=== PATIENT | male | born 1945 | race Caucasian/White ===

== ENCOUNTER 2022-11-03 07:42 | Outpatient (OUT) | payer MEDICARE, OTHER, SELFPAY ==
[2022-11-03 07:56] LABS: Basophils Absolute Auto 0.1 10^3/uL (0.0-0.1); Basophils Percent Auto 0.5 % (0.2-2.0); Eosinophils Absolute Auto 0.3 10^3/uL (0.0-0.7); Hematocrit 40.7 % (42.0-54.0); Hemoglobin 13.6 g/dL (14.0-18.0); Immature Granulocytes Abs Auto 0.09 10^3/uL (0.00-0.03); Immature Granulocytes Pct Auto 0.9 % (0.0-0.5); Lymphocytes Absolute Auto 2.6 10^3/uL (1.2-3.8); Lymphocytes Percent Auto 27.4 % (20.5-60.0); Mean Corpuscular HGB Conc 33.4 g/dL (29.9-35.2); Mean Corpuscular Hemoglobin 31.1 pg (25.9-34.0); Mean Corpuscular Volume 93.1 fL (80.0-94.0); Mean Platelet Volume 10.2 fL (9.5-13.5); Monocytes Absolute Auto 0.7 10^3/uL (0.3-0.8); Monocytes Percent Auto 7.7 % (1.7-12.0); Neutrophils Absolute Auto 5.8 10^3/uL (1.4-6.5); Neutrophils Percent Auto 60.5 % (43.0-75.0); Platelet Count 174 10^3/uL (150-450); Red Blood Count 4.37 10^6/uL (4.70-6.10); Red Cell Distribution Width 13.5 % (11.0-15.0); White Blood Count 9.6 10^3/uL (4.0-11.0)
[2022-11-03 08:53] LABS: Alanine Aminotransferase 36 U/L (16-63); Anion Gap 15.7; Carbon Dioxide 22.6 mmol/L (21.0-32.0); Chloride 105 mmol/L (98-107); Chol HDL Ratio 2.5; Cholesterol 111 mg/dL (<=200); Estimated GFR (African America 51 (>=60); Estimated GFR (Non-African Ame 42 (>=60); Glucose 136 mg/dL (74-106); HDL Cholesterol 44 mg/dL (40-60); LDL Cholesterol Calculated 42.2 mg/dL; Potassium 4.3 mmol/L (3.5-5.1); Sodium 139 mmol/L (136-145); Triglycerides 124 mg/dL (<=150); VLDL CHOLESTEROL 24.8 mg/dL
== END 2022-11-03 07:43 | disposition home or self-care (01) ==
LOC: LAB 07:45
PROVIDERS: PCP Internal Medicine; Visit Provider Internal Medicine
DX: E78.00 Pure hypercholesterolemia, unspecified (principal); I10 Essential (primary) hypertension; Z79.899 Other long term (current) drug therapy
CPT/HCPCS: 36415; 80048; 80061; 84460; 85025

== ENCOUNTER 2023-02-08 07:54 | Outpatient (OUT) | payer MEDICARE, OTHER, SELFPAY ==
--- NOTE | 2023-02-08 07:58 | US_ITS ---
[place] [id number] Patient Name: LENIN LAM MRN: [id number] date: 1945 Sex: M Assigned Patient Location: Current Patient Location: US Accession/Order Number: [id number] Exam Date: 02/08/2023 08:00 Report Date: 02/08/2023 17:34 At the request of: EVARISTO SINGH Procedure: US carotid duplex BI EXAMINATION: US carotid duplex BI HISTORY: Carotid Artery Stenosis COMPARISON: No relevant comparison available. TECHNIQUE: Duplex Doppler ultrasound analysis of carotid and vertebral arteries. . Bilateral carotid arterial duplex examination was performed using B-mode, color flow and spectral analysis. Carotid stenosis is reported according to validated velocity parameters, similar to NASCET criteria. FINDINGS: RIGHT CAROTID ARTERY Mild atherosclerotic plaque Subclavian: PSV: 145.7 cm/s cm/s EDV: 0.0 cm/s cm/s CCA: Prox: PSV: 87.1 cm/s cm/s EDV: 11.1 cm/s cm/s Mid: PSV: 82.2 cm/s cm/s EDV: 12.8 cm/s cm/s Distal: PSV: 61.2 cm/s cm/s EDV: 11.1 cm/s cm/s BULB: PSV: 77.3 cm/s cm/s EDV: 12.8 cm/s cm/s ICA: Prox: PSV: 74.1 cm/s cm/s EDV: 17.6 cm/s cm/s Mid: PSV: 75.7 cm/s cm/s EDV: 19.2 cm/s cm/s Distal: PSV: 69.3 cm/s cm/s EDV: 19.2 cm/s cm/s ECA: PSV: 67.6 cm/s cm/s EDV: 0.0 cm/s cm/s VERTEBRAL: PSV: 27.7 cm/s cm/s EDV: 8.5 cm/s cm/s, antegrade ICA/CCA ratio: PSV: 0.9 EDV: 1.1 LEFT CAROTID ARTERY Moderate atherosclerotic plaque, 80% area reduction proximal ICA Subclavian: PSV: 182.7 cm/s cm/s EDV: 0.0 cm/s CCA: Prox: PSV: 142.2 cm/s cm/s EDV: 10.1 cm/s Mid: PSV: 80.4 cm/s cm/s EDV: 13.0 cm/s Distal: PSV: 78.5 cm/s cm/s EDV: 12.3 cm/s BULB: PSV: 55.6 cm/s cm/s EDV: 11.6 cm/s ICA: Prox: PSV: 88.5 cm/s cm/s EDV: 15.6 cm/s Mid: PSV: 76.6 cm/s cm/s EDV: 17.5 cm/s Distal: PSV: 82.6 cm/s cm/s EDV: 23.4 cm/s ECA: PSV: 76.6 cm/s cm/s EDV: 0.0 cm/s VERTEBRAL: PSV: 86.5 cm/s cm/s EDV: 27.4 cm/s , antegrade ICA/CCA ratio: PSV: 0.6 EDV: 1.5 US/US carotid duplex BI IMPRESSION: 0-49% flow stenosis right internal carotid artery 80% area of reduction measured in the proximal ICA Spectral Doppler US Thresholds (Reference: Jaun EG, et al. Radiology 2000; 214:247-252) Stenosis (%) PSV (cm/sec) VICA/VCCA 0-49 <150 <2.5 50-69 150-225 2.5-4.0 >70 >225 >4.0 Electronically authenticated by: TANISHA MATOS Date: 02/08/2023 17:34
--- NOTE | 2023-02-08 09:07 | CA_ITS ---
Patient: LENIN LAM Exam Date: 02/08/2023 : 1945 Gender:M Ordering : DR EVARISTO RAI M.D. Admission #: [id number] Family : Leo Dieter D.ORadha Order #: [id number] CLICK HERE TO VIEW EXAM ECHOCARDIOGRAM REPORT PROCEDURE: CA ECHO DOPPLER COMPLETE INDICATIONS: dyspnea on exertion, CABGx3, PTCA, Hypertension COMPARISON: None. DESCRIPTION: COMPLETE ECHOCARDIOGRAM Real-time transthoracic echocardiography with 2D, M-mode, spectral and color flow Doppler performed. QUALITY: Technically difficult due to patient's body habitus. LEFT VENTRICLE: Normal chamber size. Mild concentric left ventricular hypertrophy. LV EF: Global left ventricular systolic function is difficult to assess but appears preserved; visually estimated ejection fraction is 55 to 60%. DIASTOLIC: Normal diastolic function. ATRIAL SEPTUM: Visually appears intact. LEFT ATRIUM: Normal chamber size. RIGHT ATRIUM: Normal chamber size. RIGHT VENTRICLE: Normal chamber size. Normal systolic function. TRICUSPID VALVE: Normal mobility and thickness. No stenosis with no regurgitation. Unable to assess right-sided pressures due to lack of measurable tricuspid regurgitation. MITRAL VALVE: Normal mobility and thickness. No evidence of mitral valve stenosis. Mild mitral annular calcification. Trivial mitral regurgitation. AORTIC VALVE: Normal trileaflet appearance. No visible sclerosis. Normal leaflet mobility. No evidence of aortic valve stenosis. Trivial aortic regurgitation. AORTIC ROOT: Normal diameter and appearance. PULMONIC VALVE: Normal thickness and mobility. No stenosis. Mild to moderate regurgitation. PERICARDIUM: No evidence of pericardial effusion. IVC: Collapses with inspirations. CONCLUSION: 1. Global left ventricular systolic function is difficult to assess but appears preserved; visually estimated ejection fraction is 55 to 60% 2. Mild concentric left ventricular hypertrophy 3. Normal diastolic function 4. Right ventricle is normal in size and systolic function 5. Mild to moderate pulmonic regurgitation Adult Echocardiography Procedure Report Left Ventricle LVEDD (3.7 - 5.6 cm): 5.29 cm LVESD (2.2 - 4.0 cm): 3.06 cm LVIVS thickness (0.6 - 1.2 cm): 1.35 cm LVPW thickness (0.5 - 1.0 cm): 1.14 cm e': 0.11 m/s E - e': 5.61 LVOT Max Gradient: 1.52 mm[Hg] LVOT Area (cm2): 0.62 m/s Peak Velocity (LVOT): 0.62 m/s LVOT Diameter 2.73 cm Left Atrium LA Volume Index (2D A2C): 35.74 ml/m2 Left Atrium Systolic Dimension: 4.31 cm Mitral Valve MV E to A Ratio: 1.07 Mitral Valve A-Wave Peak Velocity: 0.58 m/s Mitral Valve E-Wave Peak Velocity: 0.62 m/s Right Ventricle Aorta AO Root Diam: 4.19 cm Ascending Ao Diam: 3.40 cm Aortic Valve AoV Area (Peak Neil): 3.42 cm2, 3.42 cm2 Peak Velocity(Antegrade Flow): 1.05 m/s Peak Gradient(Antegrade Flow): 4.42 mm[Hg] Tricuspid Valve Pulmonic Valve Peak Velocity: 1.15 m/s Peak Gradient: 5.59 mm[Hg], 5.01 mm[Hg] Right Atrium Dictated by: Evaristo Rai M.D. on 02/09/2023 at 14:52 Approved by: Evaristo Ria M.D. on 02/09/2023 at 14:58
== END 2023-02-08 07:55 | disposition home or self-care (01) ==
LOC: US 07:55
PROVIDERS: PCP Internal Medicine; Visit Provider Internal Medicine Interventional Cardiology
DX: I65.23 Occlusion and stenosis of bilateral carotid arteries (principal)
CPT/HCPCS: 93306; 93880

== ENCOUNTER 2023-02-08 10:59 | Outpatient (OUT) | payer MEDICARE, OTHER, SELFPAY ==
--- NOTE | 2023-02-08 12:07 | P.CN_ITS ---
Consult Note: HPI Data of Consult Patient: new to practice Consult date: 02/08/23 Requesting Physician: Mary Ann Villalobos MD Primary Care Provider: Leo Garcias DO Consult Narrative Reason for consult: low back pain Narrative: 77yom who presents for evaluation. worsening axial low back pain that is increasing with standing and ambulation. imaging was last completed 2+ years ago. engaged in physical therapy recently and engages in provider directed home exercises >6 weeks, which did not help. utilizes tramadol, with minimal relief. denies adverse med side effects. cc:: CC: Mary Ann Villalobos MD Review of Systems ROS Status of ROS 10 or more systems reviewed and unremarkable except as noted in history and below Meds Home Medications and Allergies Home Medications Medication Instructions Recorded Confirmed Type hydrocodone 5 mg-acetaminophen 325 1 tab PO TID PRN pain #90 tabs 02/08/23 Rx mg tablet Exam Narrative Exam Narrative: Psych-alert and oriented x 3. Attentive and appropriate, constitutionally normal, displays normal mood and affect per situation. There are no obvious deficits in memory, reasoning, or intellect.? Skin-no obvious rashes, bruising, erythema noted to the patient's area of pain.? Extremities- extremities are warm with minimal edema and palpable pulses. Lumbar-tenderness to palpation noted in the lumbar spine and paraspinal musc ulature. Pain is elicited with flexion, extension, and lateral rotation of the lumbar spine. Range of motion is diminished with these motions. Facet loading maneuvers are positive.? Strength-noted to be unremarkable with the exception of decreased strength rated at 4 out of 5 in bilateral quadriceps femoris, anterior tibialis. Sensory-no notable sensory deficits in the bilateral lower extremities to touch or pinprick in all dermatomal distributions with the exception to decreased sensation to the bilateral L4, 5 dermatomal distribution Coordination remains intact.? Gait remains non-antalgic. Assessment and Plan Assessment and Plan (1) Lumbar stenosis with neurogenic claudication: (2) Lumbar spondylosis: Plan 77yom who presents for evaluation. failed conservative measures, as noted. given worsening symptoms, would like him to update lumbar mri without contrast. he is in agreement. medications reviewed. OARRS reviewed. will have him discontinue tramadol and trial norco 5mg tid prn. obtain UDS today. follow up after imaging.
== END 2023-02-08 11:00 | disposition home or self-care (01) ==
PROVIDERS: PCP Internal Medicine; Visit Provider Anesthesiology
DX: I65.23 Occlusion and stenosis of bilateral carotid arteries (principal); M47.816 Spondylosis without myelopathy or radiculopathy, lumbar region; M48.062 Spinal stenosis, lumbar region with neurogenic claudication; I37.1 Nonrheumatic pulmonary valve insufficiency
CPT/HCPCS: 93306; 93880; G0463

== ENCOUNTER 2023-02-15 08:34 | Outpatient (OUT) | payer MEDICARE, OTHER, SELFPAY ==
--- NOTE | 2023-02-15 08:40 | MR_ITS ---
The [address] [address] Patient Name: LENIN LAM MRN: [facility]:[id number] date: 1945 Sex: M Assigned Patient Location: MRI Current Patient Location: MRI Accession/Order Number: [id number] Exam Date: 02/15/2023 08:59 Report Date: 02/15/2023 10:17 At the request of: BONITA DEAN Procedure: MR lumbar spine wo con EXAM: MR lumbar spine wo con HISTORY: Lumbar Stenosis COMPARISON: Lumbar spine MRI from 12/24/2020. TECHNIQUE: Multiplanar multisequence MRI was obtained through the lumbar spine without contrast FINDINGS: For discussion purposes the cephalad most axial T2 weighted image defines the T11 vertebral level. Osseous: The vertebral body heights are maintained. No fracture. Osteophytes and disc height loss at all lumbar levels. Modic type I Modic type II endplate edema at L1-L2. Modic type I Modic type II endplate degenerative changes at L3-L4. Conus medullaris/cauda equina: The conus medullaris terminates at the L1-L2 disc level. No abnormal signal is demonstrated within the distal aspect of the spinal cord. Soft tissues: The abdominal aorta is normal in caliber. No retroperitoneal lymphadenopathy. Bilateral renal cysts. Disc levels: T11-T12: Small broad-based posterior disc bulge superimposed right articular zone disc extrusion extending caudally along the superior one quarter of the T12 vertebral body. This mildly narrows the right subarticular recess. Mild facet arthrosis. Mild right foraminal stenosis. T12-L1: Small broad-based posterior disc bulge. Mild narrowing of the spinal canal. Foramina are patent. L1-L2: Broad-based posterior disc bulge. Mild spinal canal stenosis. Mild left and mild right foraminal stenosis. L2-L3: Broad-based posterior disc bulge. Mild narrowing of the spinal canal neural foramina. L3-L4: Broad-based posterior disc bulge. Mild spinal canal and neural foraminal stenosis. Mild facet arthrosis. L4-L5: Moderate right and mild left facet arthrosis. Broad-based posterior disc bulge. Mild spinal canal and bilateral foraminal stenosis. Mild bilateral subarticular recess stenosis L5-S1: Broad-based posterior disc bulge. Mild narrowing of the left subarticular recess. Mild facet arthrosis. Mild to moderate foraminal stenosis. MR/MR lumbar spine wo con IMPRESSION: 1. Multilevel degenerative changes of the lumbar spine most notably at L4-L5 where there is mild spinal canal stenosis, mild subarticular recess stenosis and mild foraminal stenosis. Electronically authenticated by: CROW ERWIN Date: 02/15/2023 10:17
== END 2023-02-15 08:35 | disposition home or self-care (01) ==
LOC: MRI 08:34
PROVIDERS: PCP Internal Medicine; Visit Provider Anesthesiology
DX: M48.061 Spinal stenosis, lumbar region without neurogenic claudication (principal)
CPT/HCPCS: 72148

== ENCOUNTER 2023-03-08 14:31 | Outpatient (OUT) | payer MEDICARE, OTHER, SELFPAY ==
--- NOTE | 2023-03-08 15:37 | P.CN_ITS ---
Consult Note: HPI Data of Consult Patient: known to practice within the last 3 years Consult date: 03/08/23 Requesting Physician: Mary Ann Villalobos MD Primary Care Provider: Leo Garcias DO Consult Narrative Reason for consult: low back pain, bilateral lower extremity pain Narrative: 77yom who presents for assessment. continues to have low back pain with radiation into the bilateral lower extremities. imaging reviewed, which is significant for multilevel stenosis and spondylosis, worst in the lower lumbar s pine. engages in provider directed home exercise program. uses norco 5mg tid prn, which provides minimal relief. denies adverse med side effects. cc:: CC: Mary Ann Villalobos MD Review of Systems ROS Status of ROS 10 or more systems reviewed and unremarkable except as noted in history and below Meds Home Medications and Allergies Home Medications Medication Instructions Recorded Confirmed Type amlodipine 10 mg-benazepril 20 mg 1 cap PO DAILY 02/08/23 02/08/23 History capsule aspirin 81 mg tablet,delayed 81 mg PO DAILY 02/08/23 02/08/23 History release (Adult Aspirin Regimen) atorvastatin 80 mg tablet 80 mg PO DAILY 02/08/23 02/08/23 History citalopram 20 mg tablet 20 mg PO DAILY 02/08/23 02/08/23 History clopidogrel 75 mg tablet 75 mg PO DAILY 02/08/23 02/08/23 History finasteride 5 mg tablet 5 mg PO DAILY 02/08/23 02/08/23 History furosemide 20 mg tablet 20 mg PO DAILY 02/08/23 02/08/23 History hydrocodone 5 mg-acetaminophen 325 1 tab PO TID PRN pain #90 tabs 02/08/23 Rx mg tablet isosorbide mononitrate 60 mg 60 mg PO DAILY 02/08/23 02/08/23 History tablet,extended release 24 hr metoprolol succinate 50 mg 50 mg PO DAILY 02/08/23 02/08/23 History tablet,extended release 24 hr oxybutynin chloride 15 mg 15 mg PO DAILY 02/08/23 02/08/23 History tablet,extended release 24 hr tamsulosin 0.4 mg capsule 0.4 mg PO Q24H 02/08/23 02/08/23 History hydrocodone 7.5 mg-acetaminophen 1 tab PO TID PRN pain #90 tabs 03/08/23 Rx 325 mg tablet Allergies Allergy/AdvReac Type Severity Reaction Status Date / Time No Known Drug Allergies Allergy Verified 02/08/23 13:22 Exam Narrative Exam Narrative: Psych-alert and oriented x 3. Attentive and appropriate, constitutionally normal, displays normal mood and affect per situation. There are no obvious deficits in memory, reasoning, or intellect.? Skin-no obvious rashes, bruising, erythema noted to the patient's area of pain.? Extremities- extremities are warm with minimal edema and palpable pulses. Lumbar-tenderness to palpation noted in the lumbar spine and paraspinal musculature. Pain is elicited with flexion, extension, and lateral rotation of the lumbar spine. Range of motion is diminished with these motions. Facet loading maneuvers are positive. Strength-noted to be unremarkable with the exception of decreased strength rated at 4 out of 5 in bilateral quadriceps femoris, anterior tibialis. Sensory-no notable sensory deficits in the bilateral lower extremities to touch or pinprick in all dermatomal distributions with the exception to decreased sensation to the bilateral L4, 5 dermatomal distribution Coordination remains intact.? Gait remains non-antalgic. Assessment and Plan Assessment and Plan (1) Lumbar spondylosis: (2) Lumbar stenosis with neurogenic claudication: Plan 77yom who presents for assessment. imaging reviewed, as noted. states that he had injections and rfas in the past, with minimal relief. discussed with him that given him imaging and symptoms, options were not plentiful. discussed that we could consider caudal injection vs. scs trial vs. surgical evaluation. he w ould like to think about caudal and scs, and i provided info today. medications reviewed. will increase his norco to 7.5mg tid prn. he expressed understanding. follow up in 1 month.
== END 2023-03-08 14:32 | disposition home or self-care (01) ==
LOC: PM 14:31
PROVIDERS: PCP Internal Medicine; Visit Provider Anesthesiology
DX: M47.816 Spondylosis without myelopathy or radiculopathy, lumbar region (principal); M48.062 Spinal stenosis, lumbar region with neurogenic claudication
CPT/HCPCS: G0463

== ENCOUNTER 2023-04-08 10:05 | Outpatient (OUT) | payer MEDICARE, OTHER, SELFPAY ==
--- NOTE | 2023-04-08 10:28 | P.CN_ITS ---
Consult Note: HPI Data of Consult Patient: known to practice within the last 3 years Requesting Physician: Blessing Benavides NP Primary Care Provider: Leo Garcias DO Consult Narrative Reason for consult: f/u Narrative: Mason Almanzar a pleasant 77 year old male presents for evaluation and management of chronic low back pain unresponsive to injection therapy. Pain today 8/10 ache in low back with weakness to bilateral legs. Pain today 8/10 in low back, describes as an ache. Patient has noticed no benefit to hydrocodone- acetaminophen 7.5mg TID. cc:: CC: Blessing Benavides NP Review of Systems ROS Status of ROS 10 or more systems reviewed and unremarkable except as noted in history and below Musculoskeletal Reports: back pain Meds Home Medications and Allergies Home Medications Medication Instructions Recorded Confirmed Type amlodipine 10 mg-benazepril 20 mg 1 cap PO DAILY 02/08/23 02/08/23 History capsule aspirin 81 mg tablet,delayed 81 mg PO DAILY 02/08/23 02/08/23 History release (Adult Aspirin Regimen) atorvastatin 80 mg tablet 80 mg PO DAILY 02/08/23 02/08/23 History citalopram 20 mg tablet 20 mg PO DAILY 02/08/23 02/08/23 History clopidogrel 75 mg tablet 75 mg PO DAILY 02/08/23 02/08/23 History finasteride 5 mg tablet 5 mg PO DAILY 02/08/23 02/08/23 History furosemide 20 mg tablet 20 mg PO DAILY 02/08/23 02/08/23 History isosorbide mononitrate 60 mg 60 mg PO DAILY 02/08/23 02/08/23 History tablet,extended release 24 hr metoprolol succinate 50 mg 50 mg PO DAILY 02/08/23 02/08/23 History tablet,extended release 24 hr oxybutynin chloride 15 mg 15 mg PO DAILY 02/08/23 02/08/23 History tablet,extended release 24 hr tamsulosin 0.4 mg capsule 0.4 mg PO Q24H 02/08/23 02/08/23 History oxycodone-acetaminophen 5 mg-325 1 tab PO TID 04/08/23 04/08/23 History mg tablet (Percocet) oxycodone-acetaminophen 5 mg-325 1 tab PO TID PRN pain #21 tabs 04/08/23 Rx mg tablet (Percocet) Allergies Allergy/AdvReac Type Severity Reaction Status Date / Time No Known Drug Allergies Allergy Verified 02/08/23 13:22 Exam Narrative Exam Narrative: Psych-alert and oriented x 3. Attentive and appropriate, constitutionally normal, displays normal mood and affect per situation. There are no obvious deficits in memory, reasoning, or intellect.? Skin-no obvious rashes, bruising, erythema noted to the patient's area of pain.? Extremities- extremities are warm with minimal edema and palpable pulses. Lumbar-tenderness to palpation noted in the lumbar spine and paraspinal musculature. Pain is elicited with flexion, extension, and lateral rotation of the lumbar spine. Range of motion is diminished with these motions. Facet loading maneuvers are positive. Strength-noted to be unremarkable with the exception of decreased strength rated at 4 out of 5 in bilateral quadriceps femoris, anterior tibialis. Sensory-no notable sensory deficits in the bilateral lower extremities to touch or pinprick in all dermatomal distributions with the exception to decreased sensation to the bilateral L4, 5 dermatomal distribution Coordination remains intact.? Gait remains non-antalgic. Constitutional Documenting provider has reviewed patient's vital signs: yes Common normals: no apparent distress, oriented x3, healthy appearing, alert and well nourished General appearance: cooperative HENNV Common normals: normocephalic, hearing grossly normal bilaterally and moist oral mucous membranes Head and scalp: normocephalic Eye Common normals: PERRL Pupil: PERRL Neck & C-Spine Common normals: full ROM General: normal visual inspection Chest Common normals: inspection of chest normal Respiratory Common normals: normal respiratory effort, no retractions and no use of accessory muscles Neuro Common normals: oriented x3, CN's II-XII intact bilaterally, moves all extremities, no focal motor deficits, no sensory deficits noted and deep tendon reflexes 2+ bilaterally Sensorium/orientation: alert Motor exam: strength 5/5 throughout and no movement abnormalities noted Psych Common normals: mental status grossly normal, thought process normal, cooperative, affect normal, speech normal and activity/motor behavior normal Speech: normal speech Thought process: normal thought process Results Additional Findings Additional findings: I have checked an OARRS report on this patient today and there are no aberrancies noted in the prescribing history.?? A drug screen was completed and reviewed within the last year, and if there has not been a drug screen completed we ordered one today to monitor higher risk, state monitored pain medication use. As part of providing excellent, safe, comprehensive care, the following was completed at our patient's visit: 1. A medication reconciliation and review to ensure accurate knowledge of current/active medications, including asking our patients to inform us about any [id number] medications or herbal remedies/nutritional supplements/alternative remedies. 2. A review to specifically ensure our patients have had annual screening for: elevated body mass index (BMI), tobacco use, screening for depression, and screening for unhealthy alcohol use. When screening is concerning, patients are provided with education and the specific recommendation to discuss the concerning health issue and treatment options with their primary care provider. Assessment and Plan Assessment and Plan (1) Lumbar spondylosis: (2) Lumbar stenosis with neurogenic claudication: (3) Chronic anticoagulation: (4) Chronic prescription opiate use: Assessment and Plan: risks vs benefits discussed. Patient did not benefit from hydrocodone- acetaminophen. Pain continues to be moderate to severe unresponsive to conservative measures Plan proceed with SCS trial workup, will need psych evaluation stop hydrocodone-acetaminophen, start oxycodone-acetaminophen 5-325mg TID PRN for 1 week, call to discuss change narcan previously discussed and prescribed
== END 2023-04-08 10:06 | disposition home or self-care (01) ==
PROVIDERS: PCP Internal Medicine; Visit Provider Nurse Practitioner
DX: M47.816 Spondylosis without myelopathy or radiculopathy, lumbar region (principal); M48.062 Spinal stenosis, lumbar region with neurogenic claudication; Z79.01 Long term (current) use of anticoagulants; Z79.891 Long term (current) use of opiate analgesic
CPT/HCPCS: G0463

== ENCOUNTER 2023-06-21 10:55 | Outpatient (OUT) | payer MEDICARE, OTHER, SELFPAY ==
--- OUTSIDE RECORDS SUMMARY | 2023-06-21 10:58 | XMS_ITS | CCD ---
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 Name Role Phone PHYSICIAN, DEFAULT Admitting Unavailable PHYSICIAN, DEFAULT Attending Unavailable DIETER, LEO Primary Care Unavailable PHYSICIAN, DEFAULT Admitting Unavailable PHYSICIAN, DEFAULT Attending Unavailable DIETER, LEO Primary Care Unavailable PHYSICIAN, DEFAULT Admitting Unavailable PHYSICIAN, DEFAULT Attending Unavailable DIETER, LEO Primary Care Unavailable LEO GARCIAS Primary Care Physician Erika Bender Unavailable DIETER, DR VAZQUEZ Primary Care Unavailable SAMEER, DR FOX Admitting Unavailable SAMEER, DR FOX Attending Unavailable LEE, DR FOX Consulting Unavailable DITEER, DR VAZQUEZ Admitting Unavailable BALL, DR VAZQUEZ Attending Unavailable BALL, DR VAZQUEZ Primary Care Unavailable DIETER, DR VAZQUEZ Consulting Unavailable SAMEER, DR FOX Admitting Unavailable SAMEER, DR FOX Attending Unavailable BALL, DR VAZQUEZ Primary Care Unavailable SAMEER, DR FOX Consulting Unavailable CARLO, DR TANISHA Deleon Consulting Unavailable DIETER, DR VAZQUEZ Admitting Unavailable BALL, DR VAZQUEZ Attending Unavailable BALL, DR VAZQUEZ Primary Care Unavailable BALL, DR VAZQUEZ Consulting Unavailable DIETER, DR VAZQUEZ Admitting Unavailable BALL, DR VAZQUEZ Attending Unavailable BALL, DR VAZQUEZ Primary Care Unavailable BALL, DR VAZQUEZ Consulting Unavailable CHRISTENSENRADU FULTON Consulting Unavailable LEE, DR FOX Admitting Unavailable LEE, DR FOX Attending Unavailable BALL, DR VAZQUEZ Primary Care Unavailable SAMEER, DR FOX Consulting Unavailable SAMEER, DR FOX Admitting Unavailable SAMEER, DR FOX Attending Unavailable BALL, DR VAZQUEZ Primary Care Unavailable SAMEER, DR FOX Consulting Unavailable CANDICE MENDENHALL Consulting Unavailable AFSHAN GTZ Consulting Unavaila ble SAMEER, DR FOX Admitting Unavailable SAMEER, DR FOX Attending Unavailable DIETER, DR VAZQUEZ Primary Care Unavailable Dieter, Leo Unavailable SHALONDA RAI Attending Unavailable Wilfredo MONTIEL, Mary Ann Chacko Attending Unavailable Wilfredo MONTIEL, Mary Ann Chacko Attending Unavailable CLAUDETTE RICHARDSON Attending Unavailable Demetri LEE Attending Unavailable Demetri LEE Attending Unavailable Allergies Allergy Classification Reported Allergen(s) Allergy Type Date of Onset Reaction(s) Facility (1 source) 01834,00; Translations: [85267,00] Propensity to adverse reactions (disorder) 9 [facility] Repository (2 sources) patient allergy list reviewed by nurse or physicia Propensity to adverse reactions Comment:Done [facility] Other (1 source) No Known Medication Allergies; Translations: [No Known Medication Allergies] Propensity to adverse reactions (disorder) [facility] Repository Medications Current Medications Medication Drug Class(es) Dates Sig (Normalized) Sig (Original) acetaminophen 500 mg oral tablet (12 sources) Start: 10-27-2019 Tylenol 500 mg, Oral, Refills(s) 0 Start Date: 10/27/19 Status: Ordered take 1 tablet by mouth every fou r hours Tylenol 325 MG 1 tablet as needed Orally every 4 hrs Not-Taking amLODIPine 10 mg oral tablet (2 sources) Dihydropyridine Calcium Channel Remy Start: 10-27-2019 take 10 mg by mouth once daily amlodipine 10 mg, Oral, Daily, Refills(s) 0 Start Date: 10/27/19 Status: Ordered amLODIPine 10 mg / benazepril hydrochloride 20 mg oral capsule (10 sources) Dihydropyridine Calcium Channel Remy, Angiotensin Converting Enzyme Inhibitor Start: 08-24-2022 amlodipine-benaze pril 10 mg-20 mg oral capsule Refill(s) 0 Start Date: 08/24/22 Status: Ordered Aspir-81 (9 sources) Aspir-81 Active Aspirin (3 sources) Platelet Aggregation Inhibitor, Nonsteroidal Anti-inflammatory Drug Start: 10-27-2019 aspirin 81 mg, Refills(s) 0 Start Date: 10/27/19 Status: Ordered atorvastatin 80 mg oral tablet (19 sources) HMG-CoA Reductase Inhibitor Start: 10-27-2019 take 80 mg by mouth once daily Lipitor 80 mg, Oral, Daily, Refills(s) 0 Start Date: 10/27/19 Status: Ordered citalopram 20 mg oral tablet (12 sources) Serotonin Reuptake Inhibitor Start: 08-04-2021 take 1 mg by mouth once daily citalopram 20 mg Tab mg tab(s), Oral, Daily, Refills(s) 0 Start Date: 08/04/21 Status: Ordered clopidogrel 75 mg oral tablet (17 sources) P2Y12 Platelet Inhibitor Start: 10-27-2019 Plavix 75 mg, Oral, Refills(s) 0 Start Date: 10/27/19 Status: Ordered finasteride 5 mg oral tablet (10 sources) 5-alpha Reductase Inhibitor Start: 01-30-2021 finasteride 5 mg Tab Refills(s) 0 Start Date: 02/23/22 Status: Ordered Lasix (12 sources) Loop Diuretic Start: 10-27-2019 Lasix 20 mg, Daily, Refills(s) 0 Start Date: 10/27/19 Status: Ordered take 1 tablet by domingo th every twenty-four hours Lasix 40 MG 1 tablet Orally Once a day Active 24 hr isosorbide mononitrate 60 mg extended release oral tablet (18 sources) Nitrate Vasodilator Start: 01-26-2020 take 1 mg by mouth once daily in the morning isosorbide mononitrate 60 mg ER Tab mg tab(s), Oral, qAM, Refills(s) 0 Start Date: 01/26/20 Status: Ordered Imdur Active 24 hr metoprolol succinate 50 mg extended release oral tablet (12 sources) beta-Adrenergic Remy Start: 10-27-2019 take 1 mg by mouth once daily metoprolol 50 mg ER Tab mg tab(s), Oral, Daily, Refills(s) 0 Start Date: 10/27/19 Status: Ordered Multi Vitamin+ (3 sources) Start: 10-27-2019 Multi Vitamin+ Refill(s) 0 Start Date: 10/27/19 Status: Ordered 24 hr oxybutynin chloride 15 mg extended release oral tablet (10 sources) Cholinergic Muscarinic Antagonist Start: 06-26-2022 take 1 tablet by mouth every twenty-four hours oxyBUTYnin Chloride ER 15 MG 1 tablet Orally Once a day Jun, Active Start: 08-04-2021 take 1 tablet by domingo th once daily oxybutynin 15 mg ER Tab 15 mg = 1 tab(s), Oral, Daily, # 30 tab(s), Refills(s) 11, Pharmacy: [facility]/pharmacy #[id number], 164, cm, 08/04/21 8:56:00 EDT, Height/Length Dosing, 139, kg, 08/04/21 8:56:00 EDT, Weight Dosing Start Date: 08/04/21 Status: Ordered tamsulosin hydrochloride 0.4 mg oral capsule (12 sources) alpha-Adrenergic Remy Start: 06-26-2022 take 1 capsule by mouth twice daily tamsulosin 0.4 mg Cap 0.4 mg = 1 cap(s), Oral, BID, # 180 cap(s), Refills(s) 3, Pharmacy: [facility]/pharmacy #[id number], 164, cm, 02/23/22 11:10:00 EDT, Height/Length Dosing, 139, kg, 02/23/22 11:10:00 EDT, Weight Dosing Start Date: 06/26/22 Status: Ordered Start: 02-23-2022 End: 06-23-2022 take 1 capsule by mouth twice daily tamsulosin 0.4 mg Cap 0.4 mg = 1 cap(s), Oral, BID, X 30 day(s), # 60 cap(s), Refills(s) 3, Pharmacy: [facility]/pharmacy #[id number], 164, cm, 02/23/22 11:10:00 EDT, Height/Length Dosing, 139, kg, 02/23/22 11:10:00 EDT, Weight Dosing Start Date: 02/23/22 Stop Date: 06/23/22 Status: Ordered Start: 11-22-2020 End: 11-17-2021 take 1 capsule by mouth twice daily Flomax 0.4 mg Cap 0.4 mg = 1 cap(s), Oral, BID, X 90 day(s), # 180 cap(s), Refills(s) 3, Pharmacy: [facility]/pharmacy #[id number], 164, cm, 07/26/20 9:40:00 EDT, Height/Length Dosing, 138.5, kg, 07/26/20 9:40:00 EDT, Weight Dosing Start Date: 11/22/20 Stop Date: 11/17/21 Status: Ordered take 1 capsule by [facility] every twenty-four hours Flomax 0.4 MG 1 capsule Orally Once a day Active 24 hr tolterodine tartrate 4 mg extended release oral capsule (2 sources) Cholinergic Muscarinic Antagonist take 1 capsule by mouth every twenty-four hours Tolterodine Tartrate ER 4 MG 1 capsule Orally Once a day Active traMADol hydrochloride 50 mg oral tablet (9 sources) Opioid Agonist Start: 01-14-20 take 1 tablet by mouth twice daily as needed traMADol HCl 50 MG 1 tablet as needed Orally twice daily Start 01/13 w/ 2RF Jan, Active Start: 07-08-2022 take 1 tablet by domingo th twice daily as needed traMADol HCl 50 MG 1 tablet as needed Orally twice daily Jul, Active Start: 10-27-2019 take 50 mg by mouth every four hours Ultram 50 mg, Oral, q4hr, Refills(s) 0 Start Date: 10/27/19 Status: Ordered triamcinolone acetonide 5 mg/ml topical cream (7 sources) Corticosteroid Start: 06-30-2022 Triamcinolone Acetonide 0.5 % 1 application Externally Two times a Week for 30 days Jun, Active Completed/Discontinued Medications Medication Drug Class(es) Dates Sig (Normalized) Sig (Original) latanoprost 0.05 mg/ml ophthalmic solution (9 sources) Prostaglandin Analog take 1 drop(s) into the eye(s) once daily in the evening Latanoprost 0.005 % 1 drop into affected eye in the evening Ophthalmic Once a day Not-Taking Multivitamin preparation (9 sources) take 1 tablet by mouth once daily Multivitamin - 1 tablet Orally Once a day Not-Taking take 1 tablet by mouth once kye y Multivitamin - 1 tablet Orally Once a day Active Problems Active Problems Problem Classification Problem Date Documented Date Episodic/Chronic Acute bronchitis (9 sources) Acute bronchitis; Translations: [Acute bronchitis due to other specified organisms] Episodic Acute cerebrovascular disease (2 sources) Cerebral infarction; Translations: [Cerebral infarction, unspecified] Chronic Calculus of urinary tract (14 sources) Kidney stone; Translations: [Calculus of kidney] Onset: 08-04-2021 Episodic Chronic kidney disease (4 sources) Chronic kidney disease; Translations: [Chronic kidney disease, unspecified] Onset: 09-29-2015 Chronic Chronic kidney disease (1 source) Chronic kidney disease; Translations: [CHRONIC KIDNEY DISEASE STAGE 3B] Onset: 02-25-2022 Coronary atherosclerosis and other heart disease (20 sources) Coronary arteriosclerosis; Translations: [Atherosclerotic heart disease of [place] coronary artery without angina pectoris] Onset: 01-27-2023 Chronic Deficiency and other anemia (9 sources) Anemia; Translations: [Anemia, unspecified] Episodic Disorders of lipid metabolism (20 sources) Hyperlipidemia; 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] Onset: 08-23-2015 08-14-2021 Chronic Esophageal disorders (1 source) Gastro-esophageal reflux disease with esophagitis; Translations: [Gastroesophageal reflux disease with esophagitis without hemorrhage] Chronic Essential hypertension (16 sources) Hypertensive disorder; Translations: [Essential (primary) hypertension] Onset: 08-29-2021 Resolved: 08-28-2019 08-14-2021 Chronic Genitourinary symptoms and ill-defined conditions (11 sources) Incontinence without sensory awareness; Translations: [Urge incontinence of urine] Onset: 06-13-2015 Chronic Genitourinary symptoms and ill-defined conditions (17 sources) Urgent desire to urinate; Translations: [Urgency of urination] Onset: 08-04-2021 Episodic Hyperplasia of prostate (20 sources) Benign prostatic hypertrophy with outflow obstruction; Translations: [Benign prostatic hyperplasia with lower urinary tract symptoms] Onset: 07-05-2013 Chronic Hypertension with complications and secondary hypertension (18 sources) Hypertensive chronic kidney disease with stage 1 through stage 4 chronic kidney disease, or unspecified chronic kidney disease; Translations: [Hypertensive renal disease] Onset: 09-29-2015 Chronic Immunizations and screening for infectious disease (2 sources) Vaccination given; Translations: [Encounter for immunization] Episodic Malaise and fatigue (14 sources) Other fatigue; Translations: [Fatigue] Onset: 07-05-2013 Episodic Melanomas of skin (9 sources) History of malignant melanoma of the skin; Translations: [Personal history of malignant melanoma of skin] Episodic Mood disorders (3 sources) Depressive disorder; Translations: [Major depressive disorder, single episode, unspecified] Onset: 08-25-2021 08-14-2021 Chronic Occlusion or stenosis of precerebral arteries (2 sources) Occlusion and stenosis of bilateral carotid arteries; Translations: [Occlusion and stenosis of bilateral carotid arteries] Onset: 01-27-2023 Chronic Osteoarthritis (2 sources) Osteoarthritis; Translations: [Polyosteoarthritis, unspecified] Chronic Other aftercare (3 sources) Other long term acute care registered nurse (current) drug therapy; Translations: [OTH ROUTING MACHINE OPERATOR CURRENT DRUG THERAPY] Onset: 08-25-2021 Episodic Other aftercare (2 sources) Long-term current use of drug therapy; Translations: [Other long term acute care registered nurse (current) drug therapy] Episodic Other and ill-defined cerebrovascular disease (14 sources) Cerebral atherosclerosis; Translations: [Cerebral atherosclerosis] Chronic Other and ill-defined cerebrovascular disease (1 source) Cerebral atherosclerosis Chronic Other circulatory disease (7 sources) History of cerebrovascular accident; Translations: [Personal history of transient ischemic attack (TIA), and cerebral infarction without residual deficits] Episodic Other circulatory disease (11 sources) Cardiovascular symptoms; Translations: [Other specified symptoms and signs involving the circulatory and respiratory systems] Onset: 08-23-2015 Episodic Other circulatory disease (1 source) Personal history of transient ischemic attack (TIA), and cerebral infarction without residual deficits Episodic Other circulatory disease (2 sources) History of cerebrovascular accident without residual deficits; Translations: [Personal history of transient ischemic attack (TIA), and cerebral infarction without residual deficits] Episodic Other diseases of veins and lymphatics (9 sources) Peripheral venous insufficiency; Translations: [Venous insufficiency (chronic) (peripheral)] Episodic Other diseases of veins and lymphatics (7 sources) Stasis dermatitis; Translations: [Venous insufficiency (chronic) (peripheral)] Episodic Other diseases of veins and lymphatics (4 sources) Venous insufficiency (chronic) (peripheral) Episodic Other injuries and conditions due to external causes (2 sources) History of fall; Translations: [History of falling] Episodic Other lower respiratory disease (5 sources) Other forms of dyspnea; Translations: [OTHER FORMS OF DYSPNEA] Onset: 02-17-2022 Episodic Other lower respiratory disease (7 sources) Dyspnea on exertion; Translations: [Other forms of dyspnea] Episodic Other lower respiratory disease (4 sources) Dyspnea; Translations: [Dyspnea, unspecified] Onset: 01-31-2014 Episodic Other non-epithelial cancer of skin (4 sources) Squamous cell carcinoma of skin of trunk; Translations: [Squamous cell carcinoma of skin of other part of trunk] Onset: 05-24-2014 Episodic Other nutritional; endocrine; and metabolic disorders (9 sources) Morbid obesity; Translations: [Morbid (severe) obesity due to excess calories] Chronic Other nutritional; endocrine; and metabolic disorders (1 source) Morbid (severe) obesity due to excess calories Chronic Other nutritional; endocrine; and metabolic disorders (4 sources) Body mass index 40+ - severely obese; Translations: [Body Mass Index 45.0-49.9, adult] Onset: 06-13-2015 Chronic Other upper respiratory infections (4 sources) Acute maxillary sinusitis; Translations: [Acute recurrent maxillary sinusitis] Onset: 06-13-2015 Episodic Residual codes; unclassified (16 sources) Obstructive sleep apnea syndrome; Translations: [Obstructive sleep apnea (adult) (pediatric)] Chronic Residual codes; unclassified (4 sources) Obstructive sleep apnea (adult) (pediatric) Chronic Residual codes; unclassified (4 sources) Localized edema; Translations: [Localized edema] Onset: 03-04-2021 Resolved: 04-01-2021 Episodic Residual codes; unclassified (7 sources) Edema; Translations: [Localized edema] Episodic Spondylosis; intervertebral disc disorders; other back problems (20 sources) Lumbosacral spondylosis with radiculopathy; Translations: [Other spondylosis with radiculopathy, lumbosacral region] Onset: 04-25-2014 Chronic Substance-related disorders (10 sources) Tobacco user; Translations: [Nicotine dependence, cigarettes, in remission] Chronic Unclassified (4 sources) CONTACT W/AND (SUSP) EXPOS COVID-19; Translations: [CONTACT W/AND (SUSP) EXPOS COVID-19] Onset: 05-11-2021 Unclassified (2 sources) Exposure to acute respiratory syndrome coronavirus 2; Translations: [Contact with and (suspected) exposure to COVID-19] Unclassified (2 sources) Identification of preoperative respiratory status; Translations: [Encounter for preprocedural respiratory examination] Onset: 01-31-2014 Past or Other Problems Problem Classification Problem Date Documented Da te Episodic/Chronic Deficiency and other anemia (1 source) Anemia, unspecified; Translations: [ANEMIA UNSPECIFIED] Onset: 10-30-2021 Episodic Esophageal disorders (11 sources) Esophageal disorders; Translations: [Gastroesophageal reflux disease with esophagitis without hemorrhage] Heart valve disorders (2 sources) Heart murmur; Translations: [Undiagnosed cardiac murmurs] Onset: 06-08-2016 Episodic Nonspecific chest pain (2 sources) Chest pain; Translations: [Chest pain, unspecified] Resolved: 01-08-2021 Episodic Other aftercare (1 source) skilled nursing (current) use of anticoagulants; Translations: [ROUTING MACHINE OPERATOR CURRNT USE ANTICOAGULANTS] Onset: 08-29-2021 Episodic Other aftercare (1 source) skilled nursing (current) use of antithrombotics/ant iplatelets; Translations: [ROUTING MACHINE OPERATOR ANTITHROMBOT/ANTIPL ATLETS] Onset: 08-25-2021 Episodic Other and unspecified benign neoplasm (2 sources) Benign neoplasm of skin of trunk; Translations: [Other benign neoplasm of skin of trunk] Onset: 05-21-2014 Episodic Other connective tissue disease (2 sources) Partial thickness rotator cuff tear; Translations: [Partial tear of rotator cuff] Onset: 11-01-2013 Episodic Other diseases of kidney and ureters (2 sources) Acquired renal cystic disease; Translations: [Acquired cyst of kidney] Onset: 07-25-2018 Episodic Other lower respiratory disease (2 sources) Dyspnea, unspecified; Translations: [Dyspnea on exertion R06.00] Onset: 03-04-2021 Resolved: 04-01-2021 Episodic Other non-traumatic joint disorders (2 sources) Shoulder joint pain; Translations: [Pain in unspecified shoulder] Onset: 11-01-2013 Episodic Other nutritional; endocrine; and metabolic disorders (2 sources) Obesity; Translations: [Obesity, unspecified] Resolved: 08-28-2019 Chronic Other screening for suspected conditions (not mental disorders or infectious disease) (1 source) Encounter for screening for malignant neoplasm of prostate; Translations: [ENC SCREEN MALIG NEOPLASM PROSTATE] Onset: 10-30-2021 Episodic Other skin disorders (2 sources) Alopecia; Translations: [Nonscarring hair loss, unspecified] Onset: 12-03-2016 Episodic Other skin disorders (2 sources) Onycholysis; Translations: [Onycholysis] Onset: 12-03-2016 Episodic Residual codes; unclassified (2 sources) Requires influenza virus vaccination; Translations: [Need for prophylactic vaccination and inoculation, Influenza] Onset: 02-28-2015 Episodic Spondylosis; intervertebral disc disorders; other back problems (2 sources) Low back pain; Translations: [Lumbago] Onset: 04-23-2014 Episodic Sprains and strains (2 sources) Sprain of tibiofibular ligament of left ankle; Translations: [Sprain of tibiofibular ligament of left ankle, initial encounter] Onset: 06-03-2017 Episodic Unclassified (1 source) CONTACT W/AND (SUSP) EXPOS COVID-19; Translations: [CONTACT W/AND (SUSP) EXPOS COVID-19] Onset: 05-05-2021 Results Test Name Value Interpretation Reference Range Facility Office Visiton 01-27-2023 Follow-up visit [id number] Ralph Lam 1945 M Date Provider Department Center 01/27/2023 [id number] No family history on file Level of Service:[address]167 [place] OFFICE/OUTPATIENT ESTABLISHED MOD MDM 30-39 MIN [facility] Ambulatory Visit Summaryon 0 08-24-2022 Ambulatory Visit Summary LENIN LAM :1945 Visit Date:08/24/2022 Ambulatory Visit Instructions Your Diagnosis BPH with urinary obstruction Urinary urgency Incontinence without sensory awareness History of kidney stones Tests Performed Urnls Dip Stick Auto w/o Microscopy POC 97530 XR Abdomen 1 View -- Results Pending -- Please visit your patient portal for your results or contact your primary care physician. Your Care Team Attending Physician - Demetri LEE MD Primary Care Physician - LEO GARCIAS DO This Is Your Medications List oxybutynin (oxybutynin 15 mg ER Tab) tamsulosin (tamsulosin 0.4 mg Cap) Contact prescribing physician if questions or concerns acetaminophen (Tylenol) amlodipine-benazepril (amlodipine-benazepril 10 mg-20 mg oral capsule) aspirin atorvastatin (Lipitor) citalopram (citalopram 20 mg Tab) clopidogrel (Plavix) finasteride (finasteride 5 mg Tab) furosemide (Lasix) metoprolol (metoprolol 50 mg ER Tab) multivitamin (Multi Vitamin+) tramadol (traMADOL 50 mg Tab) Procedures Performed ESWL of kidney (08/28/2021), Cystoscopy (01/26/2019), Cystoscopy (01/05/2019). Discharge Vitals Heart Rate (Peripheral) 59 Respiratory Rate 16 Blood Pressure 125/73 Height 164 cm Height 65 in Weight 138 kg Weight 303.6 lb BMI 51.31 What to do next Scheduled Follow-Up Appointments Wednesday 9:15 AM EDT With: Demetri LEE MD Where: [facility] Patient Educationon 08-25-19 Patient Education Urology Benign Prostatic Hyperplasia Benign prostatic hyperplasia (BPH) is an enlarged prostate gland that is caused by the normal aging process and not by cancer. The prostate is a walnut-sized gland that is involved in the production of semen. It is located in front of the rectum and below the bladder. The bladder stores urine and the urethra is the tube that carries the urine out of the body. The prostate may get bigger as a man gets older. An enlarged prostate can press on the urethra. This can make it harder to pass urine. The build-up of urine in the bladder can cause infection. Back pressure and infection may progress to bladder damage and kidney (renal) failure. What are the causes? This condition is part of a normal aging process. However, not all men develop problems from this condition. If the prostate enlarges away from the urethra, urine flow will not be blocked. If it enlarges toward the urethra and compresses it, there will be problems passing urine. What increases the risk? This condition is more likely to develop in men over the age of 50 years. What are the signs or symptoms? Symptoms of this condition include: ? Getting up often during the night to urinate. ? Needing to urinate frequently during the day. ? Difficulty starting urine flow. ? Decrease in size and strength of your urine stream. ? Leaking (dribbling) after urinating. ? Inability to pass urine. This needs immediate treatment. ? Inability to completely empty your bladder. ? Pain when you pass urine. This is more common if there is also an infection. ? Urinary tract infection (UTI). How is this diagnosed? This condition is diagnosed based on your medical history, a physical exam, and your symptoms. Tests will also be done, such as: ? A post-void bladder scan. This measures any amount of urine that may remain in your bladder after you finish urinating. ? A digital rectal exam. In a rectal exam, your health care provider checks your prostate by putting a lubricated, gloved finger into your rectum to feel the back of your prostate gland. This exam detects the size of your gland and any abnormal lumps or growths. ? An exam of your urine (urinalysis). ? A prostate specific antigen (PSA) screening. This is a blood test used to screen for prostate cancer. ? An ultrasound. This test uses sound waves to electronically produce a picture of your prostate gland. Your health care provider may refer you to a specialist in kidney and prostate diseases (urologist). How is this treated? Once symptoms begin, your health care provider will monitor your condition (active surveillance or watchful waiting). Treatment for this condition will depend on the severity of your condition. Treatment may include: ? Observation and yearly exams. This may be the only treatment needed if your condition and symptoms are mild. ? Medicines to relieve your symptoms, including: ? Medicines to shrink the prostate. ? Medicines to relax the muscle of the prostate. ? Surgery in severe cases. Surgery may include: ? Prostatectomy. In this procedure, the prostate tissue is removed completely through an open incision or with a laparoscope or robotics. ? Transurethral resection of the prostate (TURP). In this procedure, a tool is inserted through the opening at the tip of the penis (urethra). It is used to cut away tissue of the inner core of the prostate. The pieces are removed through the same opening of the penis. This removes the blockage. ? Transurethral incision (TUIP). In this procedure, small cuts are made in the prostate. This lessens the prostate's pressure on the urethra. ? Transurethral microwave thermotherapy (TUMT). This procedure uses microwaves to create heat. The heat destroys and removes a small amount of prostate tissue. ? Transurethral needle ablation (TUNA). This procedure uses radio frequencies to destroy and remove a small amount of prostate tissue. ? Interstitial laser coagulation (ILC). This procedure uses a laser to destroy and remove a small amount of prostate tissue. ? Transurethral electrovaporization (TUVP). This procedure uses electrodes to destroy and remove a small amount of prostate tissue. ? Prostatic urethral lift. This procedure inserts an implant to push the lobes of the prostate away from the urethra. Follow these instructions at home: ? Take [id number] and prescription medicines only as told by your health care provider. ? Monitor your symptoms for any changes. Contact your health care provider with any changes. ? Avoid drinking large amounts of liquid before going to bed or out in public. ? Avoid or reduce how much caffeine or alcohol you drink. ? Give yourself time when you urinate. ? Keep all follow-up visits as told by your health care provider. This is important. Contact a health care provider if: ? You have unexplained back pain. ? Your symptoms do not get better with treatment. ? You d (more content not included)... Normal [facility] Urology Office/Clinic Noteon 08-24-2022 Urology Office/Clinic Note Chief Complaint 6 month f/u HPI Staff 6 month f/u. Previous dx include BPH with urinary obstruction, urinary urgency, nocturia, kidney stone and incontinence without sensory awareness. Pt continues Oxybutynin 15mg ER QD therapy, Tamsulosin 0.4mg BID and Finasteride 5mg Dysuria: no Incomplete bladder emptying: no Hematuria: no. Frequency: no Urgency: no Nocturia: 2x Stream: good steady stream Leaking: no Post void dripping: no Wearing pads/ Depends: no Urge incontinence: no Stress incontinence: no Incontinence without Sensory Awareness: states that sometimes he is a little damp and didn't realize that he had leaked at all Abdominal pain: no Flank pain: no Sexual complaints: no History of Present Illness Tests reviewed: reviewed UA. I have reviewed the previous health record information and history for this patient from Dr. Lee. I have reviewed and verified the staff HPI to be accurate for this encounter. There have been no associated fever, chills, flank pain, or blood in the urine. Denies any urinary infections since last encounter. Review of Systems PHQ Score Initial Depression Screen Score: 0 ROS - Provider Constitutional: denies weight loss, denies hot flashes. Eyes: denies eye problems. Gastrointestinal: denies nausea, denies vomiting. Cardiovascular: denies chest pain or angina. Integumentary: no dryness Musculoskeletal: denies musculoskeletal symptoms. ENMT: denies otolaryngeal symptoms. Respiratory: no shortness of breath. Heme/Lymph: denies easy bleeding tendency, denies easy bruising tendency. Psychiatric: no confusion, no anxiety. Genitourinary: See HPI. Physical Exam Vitals & Measurements HR: 59(Peripheral) RR: 16 BP: 125/73 HT: 65 in HT: 164 cm WT: 138 kg WT: 303.6 lb BMI: 51.31 General Appearance: alert, no distress, well nourished, well developed male. Genitourinary: normal scrotum, normal testes, normal urethra, normal epididymis, normal vas deferens/spermatic cord. Flank Pain: none. Bladder: nonpalpable. Assessment/Plan 1. BPH with urinary obstruction (N40.1: Benign prostatic hyperplasia with lower urinary tract symptoms) Cysto 08/16/18 - Bilobar obstruction. Severe trabec, open tics, some deep. UA today negative for blood and infection. Taking Tamsulosin 0.4 mg BID and Finasteride 5 mg qd. Steady stream. No stop/start. Feels he empties completely. No straining. Explained pt had prostate obstruction at cysto a few years ago so if his urinary sxs were to worsen, next step would be outlet obstruction procedure like a TURP. Pt comfortable with current management. No UTIs. Explained TURP risks and benefits and recovery. 2. Urinary urgency (R39.15: Urgency of urination) Managed with Oxybutynin 15 mg ER QD. Working well, has time to make it to the bathroom. 3. 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 Does not happen every night. Maybe 2-3x/week. Is never soaked. Does not wear pads. 4. History of kidney stones (Z87.442: Personal history of urinary calculi) Only 2 stone events during his lifetime. No stone events since last encounter. Follow up 6 mos with KUB or sooner if needed. Pt understands and agrees with plan. Follow-up With When Contact Information SAMEER MONTIEL, Demetri Sequeira, URL [facility] [address], [place] [address]- Additional Instructions: 6 mos with KUB Patient Education Benign Prostatic Hyperplasia I, Allison Dotson, personally scribed for Dr. Lee on 08/24/2022 11:19:49. . Documentation recorded by the scribe, Allison Dotson, accurately reflects the services(s) I performed and decisions made by me. Authenticated by Dr. Lee on 08/24/2022 11:21:31. Problem List/Past Medical History Ongoing BPH with urinary obstruction Depression History of kidney stones Hyperlipidemia Hypertension Incontinence without sensory awareness Kidney stone Nocturia Urge incontinence Urinary urgency Weak urinary stream Historical No qualifying data Procedure/Surgical History ESWL of kidney (08/28/2021), Cystoscopy (01/26/2019), Cystoscopy (01/05/2019). Medications amlodipine-benazepril 10 mg-20 mg oral capsule aspirin, 81 mg citalopram 20 mg Tab, Oral, Daily finasteride 5 mg Tab Lasix, 20 mg, Daily Lipitor, 80 mg, Oral, Daily metoprolol 50 mg ER Tab, Oral, Daily Multi Vitamin+ oxybutynin 15 mg ER Tab, 15 mg= 1 tab(s), Oral, Daily, 3 refills Plavix, 75 mg, Oral tamsulosin 0.4 mg Cap, 0.4 mg= 1 cap(s), Oral, BID, 3 refills traMADOL 50 mg Tab Tylenol, 500 mg, Oral Allergies No Known Allergies No Known Medication Allergies Social History Tobacco Never (less than 100 in lifetime) Tobacco Use:. Never Smokeless Tobacco Use:., 02/23/2022 Family History Family history is unknown Immunizations Vaccine Date Status Comments SARS-CoV-2 (COVID-1 (more content not included)... Normal [facility] Comment on above: Result Comment: Elec tronically Signed By: Demetri LEE MD\.br\Date and Time Signed: 08/24/22 11:21 EDT\.br\Electronically Co-Signed By: Allison Dotson\.br\Date and Time Co-Signed: 08/24/22 11:20 EDT 36on 07-07-2022 36 Notes: Rx refused. N ot seen since December 2020. Normal [facility] BNPon 02-17-2022 Natriuretic peptide B (Bld) [Mass/Vol] 330.0 pg/mL Normal <=1,800.0 [facility] Comment on above: Performed By: #### B INFORMATION ANALYST, TSH, BMP #### [facility] [address] [address] [address] Temo Mckeon CBC AUTO DIFFon 02-17-2022 BASO # 0.1 103/ul Normal 0.0-0.1 [facility] Comment on above: Performed By: #### C BC #### [facility] [address] [address] [address] Temo Mckeon Basophils/100 WBC (Bld) 0.4 % Normal 0.2-2.0 [facility] Comment on above: Performed By: #### C BC #### [facility] [address] [place] [address] Dr. Temo Mckeon EO # 0.3 103/ul Normal 0.0-0.7 [facility] Comment on above: Performed By: #### C BC #### [facility] [address] [place] [address] Dr. Temo Mckeon Eosinophils/100 WBC (Bld) 2.8 % Normal 0.9-7.0 [facility] Comment on above: Performed By: #### C BC #### [facility] [address] [place] [address] Dr. Temo Mckeon Erythrocyte distribution width (RBC) [Ratio] 13.5 % Normal 11.0-15.0 [facility] Comment on above: Performed By: #### C BC #### [facility] [address] [place] [address] Dr. Temo Mckeon Hematocrit (Bld) [Volume fraction] 38.5 % Critically low 42.0-54.0 [facility] Comment on above: Performed By: #### C BC #### [facility] [address] [place] [address] Dr. Temo Mckeon Hemoglobin (Bld) [Mass/Vol] 12.5 g/dL Critically low 14.0-18.0 [facility] Comment on above: Performed By: #### C BC #### [facility] [address] [place] [address] Dr. Temo Mckeon IG # 0.11 10e3/ul Critically high 0.00-0.03 [facility] Comment on above: Performed By: #### C BC #### [facility] [address] [place] [address] Dr. Temo Mckeon IG % 0.9 % Critically high 0.0-0.5 [facility] Comment on above: Performed By: #### C BC #### [facility] [address] [place] [address] Dr. Temo Mckeon LYMPH # 2.1 103/ul Normal 1.2-3.8 [facility] Comment on above: Performed By: #### C BC #### [facility] [address] [place] [address] Dr. Temo Mckeon Lymphocytes/100 WBC (Bld) 17.5 % Critically low 20.5-60.0 [facility] Comment on above: Performed By: #### C BC #### [facility] [address] [place] [address] Dr. Temo Mckeon MANUAL DIFF REQ NO Normal [facility] Comment on above: Performed By: #### C BC #### [facility] [address] [place] [address] Dr. Temo Mckeon MCH (RBC) [Entitic mass] 30.6 pg Normal 25.9-34.0 [facility] Comment on above: Performed By: #### C BC #### [facility] [address] [place] [address] Dr. Temo Mckeon MCHC (RBC) [Mass/Vol] 32.5 g/dL Normal 29.9-35.2 [facility] Comment on above: Performed By: #### C BC #### [facility] [address] [place] [address] Dr. Temo Mckeon MCV (RBC) [Entitic vol] 94.1 fL Critically high 80.0-94.0 [facility] Comment on above: Performed By: #### C BC #### [facility] [address] [place] [address] Dr. Temo Mckeon MONO # 0.9 103/ul Critically high 0.3-0.8 [facility] Comment on above: Performed By: #### C BC #### [facility] [address] [place] [address] Dr. Temo Mckeon Monocytes/100 WBC (Bld) 7.9 % Normal 1.7-12.0 [facility] Comment on above: Performed By: #### C BC #### [facility] [address] [place] [address] Dr. Temo Mckeon NEUT # 8.4 103/ul Critically high 1.4-6.5 [facility] Comment on above: Performed By: #### C BC #### [facility] [address] [address] [address] Temo Mckeon Neutrophils/100 WBC (Bld) 70.5 % Normal 43.0-75.0 [facility] Comment on above: Performed By: #### C BC #### [facility] [address] [address] [address] Temo Mckeon Platelet mean volume (Bld) [Entitic vol] 10.5 fL Normal 9.5-13.5 [facility] Comment on above: Performed By: #### C BC #### [facility] [address] [place] [address] Dr. Temo Mckeon PLT 172 103/ul Normal 150-450 [facility] Comment on above: Performed By: #### C BC #### [facility] [address] [place] [address] Dr. Temo Mckeon RBC 4.09 106/ul Critically low 4.70-6.10 [facility] Comment on above: Performed By: #### C BC #### [facility] [address] [address] [address] Temo Mckeon WBC 11.9 103/ul Critically high 4.0-11.0 [facility] Comment on above: Performed By: #### C BC #### [facility] [address] [place] [address] Dr. Temo Mckeon PROF CHEM 8 (BAS METB)on Anion gap [Moles/Vol] 14.2 mmol/L Normal [facility] Comment on above: Performed By: #### B INFORMATION ANALYST, TSH, BMP #### [facility] [address] [address] [address] Temo Mckeon Calcium [Mass/Vol] 9.1 mg/dL Normal 8.5-10.1 [facility] Comment on above: Performed By: #### B INFORMATION ANALYST, TSH, BMP #### [facility] [address] [place] [address] Dr. Temo Mckeon Chloride [Moles/Vol] 105 mmol/L Normal 98-107 [facility] Comment on above: Performed By: #### B INFORMATION ANALYST, TSH, BMP #### [facility] [address] [place] [address] Dr. Temo Mckeon CO2 [Moles/Vol] 25.3 mmol/L Normal 21.0-32.0 [facility] Comment on above: Performed By: #### B INFORMATION ANALYST, TSH, BMP #### [facility] [address] [place] [address] Dr. Temo Mckeon Creatinine [Mass/Vol] 1.72 mg/dL Critically high 0.70-1.30 [facility] Comment on above: Performed By: #### B INFORMATION ANALYST, TSH, BMP #### [facility] [address] [place] [address] Dr. Temo Mckeon EGFR-AF UGANDAN 47 mL/min/1.73m2 Critically low >=60 [facility] Comment on above: Performed By: #### B INFORMATION ANALYST, TSH, BMP #### [facility] [address] [place] [address] Dr. Temo Mckeon EGFR-NON AF UGANDAN 39 mL/min/1.73m2 Critically low >=60 [facility] Comment on above: Performed By: #### B INFORMATION ANALYST, TSH, BMP #### [facility] [address] [place] [address] Dr. Temo Mckeon Glucose [Mass/Vol] 134 mg/dL Critically high 74-106 [facility] Comment on above: Performed By: #### B INFORMATION ANALYST, TSH, BMP #### [facility] [address] [place] [address] Dr. Temo Mckeon Potassium [Moles/Vol] 4.5 mmol/L Normal 3.5-5.1 [facility] Comment on above: Performed By: #### B INFORMATION ANALYST, TSH, BMP #### [facility] [address] [place] [address] Dr. Temo Mckeon Sodium [Moles/Vol] 140 mmol/L Normal 136-145 [facility] Comment on above: Performed By: #### B INFORMATION ANALYST, TSH, BMP #### [facility] [address] [place], [place] [address] Dr. Temo Mckeon Urea nitrogen [Mass/Vol] 36.0 mg/dL Critically high 7.0-18.0 [facility] Comment on above: Performed By: #### B INFORMATION ANALYST, TSH, BMP #### [facility] [address] [place], [place] [address] Dr. Temo Mckeon Urea nitrogen/Creatinine [Mass ratio] 20.9 mg/mg Normal [facility] Comment on above: Performed By: #### B INFORMATION ANALYST, TSH, BMP #### [facility] [address] [place], [place] [address] Dr. Temo Mckeon TSHon 02-17-2022 TSH 1.708 uIU/mL Normal 0.358-3.740 [facility] Comment on above: Performed By: #### B INFORMATION ANALYST, TSH, BMP #### [facility] [address] [address] [address] Temo Mckeon XR KUB 1 VIEWon 02-17-2022 XR KUB 1 VIEW EXAM: CHEST 2 VIEWS, ABDOMEN 1 VIEW HISTORY: Dyspnea on exertion TECHNIQUE: PA and lateral views chest, abdomen one view. COMPARISON: 12/12/2020 FINDINGS: The lungs are clear. There is no focal lung consolidation, pleural effusion or pneumothorax. Pulmonary vasculature is within normal limits. There are median sternotomy changes and tortuous aorta with normal heart size. Visualized bowel gas pattern is nonobstructed. There is a large amount of stool at the hepatic flexure and proximal transverse colon. There are several pelvic phleboliths, largest is 1 cm overlying the right pelvis, unchanged. No definite radiopaque urinary calculus. There are degenerative changes throughout the thoracic and lumbar spine. IMPRESSION: 1. Stable chest. No acute cardiopulmonary disease. 2. Nonobstructed bowel gas pattern, with large stool burden in the hepatic flexure and proximal transverse colon. 3. No definite radiopaque urinary calculus. Stable pelvic calcifications compatible with phleboliths. Electronically authenticated by: RADU CHRISTENSEN Date: 2022-02-17 11:43 Normal [facility] METHYLMALONIC ACID (MMA)on 0 11-01-2021 Methylmalonic Acid, Serum 205 nmol/L Normal 0-378 [facility] Comment on above: Performed By: #### C BC #### [facility] [address] [place] [address] Dr. Temo Mckeon FOLATE ([facility])on Folate >20.0 Normal >3.0 [facility] Comment on above: Result Comment: A se rum folate concentration of less than 3.1 ng/mL is considered to represent clinical deficiency. Performed By: #### B MP, ALT, LIPID #### [facility] [address] [place] [address] Dr. Temo Mckeon CBC AUTO DIFFon 10-29-2021 BASO # 0.1 103/ul Normal 0.0-0.1 [facility] Comment on above: Performed By: #### C BC #### [facility] [address] [place] [address] Dr. Temo Mckeon Basophils/100 WBC (Bld) 0.5 % Normal 0.2-2.0 [facility] Comment on above: Performed By: #### C BC #### [facility] [address] [place] [address] Dr. Temo Mckeon EO # 0.3 103/ul Normal 0.0-0.7 [facility] Comment on above: Performed By: #### C BC #### [facility] [address] [place] [address] Dr. Temo Mckeon Eosinophils/100 WBC (Bld) 3.3 % Normal 0.9-7.0 [facility] Comment on above: Performed By: #### C BC #### [facility] [address] [place] [address] Dr. Temo Mckeon Erythrocyte distribution width (RBC) [Ratio] 13.3 % Normal 11.0-15.0 [facility] Comment on above: Performed By: #### C BC #### [facility] [address] [place] [address] Dr. Temo Mckeon Hematocrit (Bld) [Volume fraction] 40.4 % Critically low 42.0-54.0 [facility] Comment on above: Performed By: #### C BC #### [facility] [address] [address] [address] Temo Mckeon Hemoglobin (Bld) [Mass/Vol] 13.4 g/dL Critically low 14.0-18.0 [facility] Comment on above: Performed By: #### C BC #### [facility] [address] [place] [address] Dr. Temo Mckeon IG # 0.06 10e3/ul Critically high 0.00-0.03 [facility] Comment on above: Performed By: #### C BC #### [facility] [address] [place] [address] Dr. Temo Mckeon IG % 0.6 % Critically high 0.0-0.5 [facility] Comment on above: Performed By: #### C BC #### [facility] [address] [place] [address] Dr. Temo Mckeon LYMPH # 2.2 103/ul Normal 1.2-3.8 [facility] Comment on above: Performed By: #### C BC #### [facility] [address] [place] [address] Dr. Temo Mckeon Lymphocytes/100 WBC (Bld) 22.6 % Normal 20.5-60.0 [facility] Comment on above: Performed By: #### C BC #### [facility] [address] [place] [address] Dr. Temo Mckeon MANUAL DIFF REQ NO Normal [facility] Comment on above: Performed By: #### C BC #### [facility] [address] [place] [address] Dr. Temo Mckeon MCH (RBC) [Entitic mass] 30.8 pg Normal 25.9-34.0 [facility] Comment on above: Performed By: #### C BC #### [facility] [address] [place] [address] Dr. Temo Mckeon MCHC (RBC) [Mass/Vol] 33.2 g/dL Normal 29.9-35.2 [facility] Comment on above: Performed By: #### C BC #### [facility] [address] [place] [address] Dr. Temo Mckeon MCV (RBC) [Entitic vol] 92.9 fL Normal 80.0-94.0 [facility] Comment on above: Performed By: #### C BC #### [facility] [address] [place] [address] Dr. Temo Mckeon MONO # 0.7 103/ul Normal 0.3-0.8 [facility] Comment on above: Performed By: #### C BC #### [facility] [address] [address] [address] Temo Mckeon Monocytes/100 WBC (Bld) 7.6 % Normal 1.7-12.0 [facility] Comment on above: Performed By: #### C BC #### [facility] [address] [place] [address] Dr. Temo Mckeon NEUT # 6.2 103/ul Normal 1.4-6.5 [facility] Comment on above: Performed By: #### C BC #### [facility] [address] [place] [address] Dr. Temo Mckeon Neutrophils/100 WBC (Bld) 65.4 % Normal 43.0-75.0 [facility] Comment on above: Performed By: #### C BC #### [facility] [address] [place] [address] Dr. Temo Mckeon Platelet mean volume (Bld) [Entitic vol] 10.5 fL Normal 9.5-13.5 [facility] Comment on above: Performed By: #### C BC #### [facility] [address] [place] [address] Dr. Tmeo Mckeon PLT 169 103/ul Normal 150-450 [facility] Comment on above: Performed By: #### C BC #### [facility] [address] [place] [address] Dr. Temo Mckeon RBC 4.35 106/ul Critically low 4.70-6.10 [facility] Comment on above: Performed By: #### C BC #### [facility] [address] [place] [address] Dr. Temo Mckeon WBC 9.5 103/ul Normal 4.0-11.0 [facility] Comment on above: Performed By: #### C BC #### [facility] [address] [place] [address] Dr. Temo Mckeon FERRITINon 10-29-2021 Ferritin [Mass/Vol] 423.0 ng/mL Critically high 26.0-388.0 [facility] Comment on above: Performed By: #### C BC #### [facility] [address] [place] [address] Dr. Temo Mckeon IRON AND TIBCon 10-29-2021 % SATURATION 25.6 % Normal [facility] Comment on above: Performed By: #### C BC #### [facility] [address] [place] [address] Dr. Temo Mckeon Iron [Mass/Vol] 79.0 ug/dL Normal 65.0-175.0 [facility] Comment on above: Performed By: #### C BC #### [facility] [address] [place] [address] Dr. Temo Mckeon TIBC DIRECT 308.0 ug/dL Normal 250.0-450.0 [facility] Comment on above: Performed By: #### C BC #### [facility] [address] [place] [address] Dr. Temo Mckeon LIPID PROFILEon 10-29-2021 CHOL-HDL RATIO NORM SEE BELOW Normal [facility] Comment on above: Result Comment: 3.3 - 4.4 LOW RISK 4.4 - 7.1 AVERAGE RISK 7.1 - 11.0 MODERATE RISK >11.0 HIGH RISK Performed By: #### B MP, ALT, LIPID #### [facility] [address] [place] [address] Dr. Temo Mckeon Cholesterol [Mass/Vol] 93 mg/dL Normal <=200 [facility] Comment on above: Performed By: #### B MP, ALT, LIPID #### [facility] [address] [place] [address] Dr. Temo Mckeon Cholesterol in HDL [Mass/Vol] 40 mg/dL Normal 40-60 [facility] Comment on above: Performed By: #### B MP, ALT, LIPID #### [facility] [address] [address] [address] Temo Mckeon Cholesterol in LDL [Mass/Vol] 35.4 mg/dL Normal [facility] Comment on above: Performed By: #### B MP, ALT, LIPID #### [facility] [address] [address] [address] Temo Mckeon Cholesterol.total/C holesterol in HDL [Mass ratio] 2.3 {ratio} Normal [facility] Comment on above: Performed By: #### B MP, ALT, LIPID #### [facility] [address] [address] [address] Temo Mckeon HDL NORMAL > or = 60 mg/dl - LO W CARDIOVASCULAR RISK <40 mg/dl - HIGH CARDIOVASCULAR RISK Normal [facility] Comment on above: Performed By: #### B MP, ALT, LIPID #### [facility] [address] [place] [address] Dr. Temo Mckeon LDL CALC NORMAL SEE BELOW Normal [facility] Comment on above: Result Comment: <100 mg/dl OPTIMAL 100 - 129 mg/dl NEAR OR ABOVE OPTIMAL 130 - 159 mg/dl BORDERLINE HIGH 160 - 189 mg/dl HIGH >190 mg/dl VERY HIGH Performed By: #### B MP, ALT, LIPID #### [facility] [address] [address] [address] Temo Mckeon Triglyceride [Mass/Vol] 88 mg/dL Normal <=150 [facility] Comment on above: Performed By: #### B MP, ALT, LIPID #### [facility] [address] [place] [address] Dr. Temo Mckeon VLDL CALC 17.6 mg/dL Normal [facility] Comment on above: Performed By: #### B MP, ALT, LIPID #### [facility] [address] [place] [address] Dr. Temo Mckeon PROF CHEM 8 (BAS METB)on Anion gap [Moles/Vol] 14.6 mmol/L Normal [facility] Comment on above: Performed By: #### B MP, ALT, LIPID #### [facility] [address] [address] [address] Temo Mckeon Calcium [Mass/Vol] 8.8 mg/dL Normal 8.5-10.1 [facility] Comment on above: Performed By: #### B MP, ALT, LIPID #### [facility] [address] [address] [address] Temo Mckeon Chloride [Moles/Vol] 106 mmol/L Normal 98-107 [facility] Comment on above: Performed By: #### B MP, ALT, LIPID #### [facility] [address] [address] [address] Temo Mckeon CO2 [Moles/Vol] 23.8 mmol/L Normal 21.0-32.0 [facility] Comment on above: Performed By: #### B MP, ALT, LIPID #### [facility] [address] [place] [address] Dr. Temo Mckeon Creatinine [Mass/Vol] 1.57 mg/dL Critically high 0.70-1.30 [facility] Comment on above: Performed By: #### B MP, ALT, LIPID #### [facility] [address] [address] [address] Temo Mckeon EGFR-AF UGANDAN 52 mL/min/1.73m2 Critically low >=60 [facility] Comment on above: Performed By: #### B MP, ALT, LIPID #### [facility] [address] [address] [address] Temo Mckeon EGFR-NON AF UGANDAN 43 mL/min/1.73m2 Critically low >=60 [facility] Comment on above: Performed By: #### B MP, ALT, LIPID #### [facility] [address] [address] [address] Temo Mckeon Glucose [Mass/Vol] 148 mg/dL Critically high 74-106 [facility] Comment on above: Performed By: #### B MP, ALT, LIPID #### [facility] [address] [address] [address] Temo Mckoen Potassium [Moles/Vol] 4.4 mmol/L Normal 3.5-5.1 [facility] Comment on above: Performed By: #### B MP, ALT, LIPID #### [facility] [address] [place] [address] Dr. Temo Mckeon Sodium [Moles/Vol] 140 mmol/L Normal 136-145 [facility] Comment on above: Performed By: #### B MP, ALT, LIPID #### [facility] [address] [place] [address] Dr. Temo Mckeon Urea nitrogen [Mass/Vol] 31.0 mg/dL Critically high 7.0-18.0 [facility] Comment on above: Performed By: #### B MP, ALT, LIPID #### [facility] [address] [place] [address] Dr. Temo Mckeon Urea nitrogen/Creatinine [Mass ratio] 19.7 mg/mg Normal [facility] Comment on above: Performed By: #### B MP, ALT, LIPID #### [facility] [address] [place] [address] Dr. Temo [facility] ALT [Catalytic activity/Vol] 39 U/L Normal 16-63 [facility] Comment on above: Performed By: #### B MP, ALT, LIPID #### [facility] [address] [place] [address] Dr. Temo Mckeon VITAMIN B12on 10-29-2021 Cobalamin (Vitamin B12) [Mass/Vol] 675.0 pg/mL Normal 193.0-986.0 [facility] Comment on above: Performed By: #### C BC #### [facility] [address] [place] [address] Dr. Temo Mckeon XR KUB 1 VIEWon 08-29-2021 XR KUB 1 VIEW EXAM: XR KUB 1 VIEW, 08/28/2021 HISTORY: Kidney stone COMPARISON: Previous x-ray from 07/29/2021 TECHNIQUE: Single AP view of the abdomen and pelvis. FINDINGS: Small punctate 5 mm radiopaque density in the right renal area, also seen on the previous x-ray, likely represents a right kidney stone. Nonspecific bowel gas pattern. No obvious radiopaque density seen in the left kidney or the pelvic region. IMPRESSION: Punctate 5 mm calculus right kidney. Electronically authenticated by: MARTA HALE Date: 2021-08-29 19:34 Normal [facility] CBC AUTO DIFFon 08-21-2021 BASO # 0.0 103/ul Normal 0.0-0.1 [facility] Comment on above: Performed By: #### C BC #### [facility] [address] [address] [address] Temo Mckeon Basophils/100 WBC (Bld) 0.3 % Normal 0.2-2.0 [facility] Comment on above: Performed By: #### C BC #### [facility] [address] [address] [address] Temo Mckeon EO # 0.3 103/ul Normal 0.0-0.7 [facility] Comment on above: Performed By: #### C BC #### [facility] [address] [address] [address] Temo Mckeon Eosinophils/100 WBC (Bld) 3.2 % Normal 0.9-7.0 [facility] Comment on above: Performed By: #### C BC #### [facility] [address] [address] [address] Temo Mckeon Erythrocyte distribution width (RBC) [Ratio] 13.5 % Normal 11.0-15.0 [facility] Comment on above: Performed By: #### C BC #### [facility] [address] [address] [address] Temo Mckeon Hematocrit (Bld) [Volume fraction] 38.8 % Critically low 42.0-54.0 [facility] Comment on above: Performed By: #### C BC #### [facility] [address] [address] [address] Temo Mckeon Hemoglobin (Bld) [Mass/Vol] 12.8 g/dL Critically low 14.0-18.0 [facility] Comment on above: Performed By: #### C BC #### [facility] [address] [address] [address] Temo Mckeon IG # 0.05 10e3/ul Critically high 0.00-0.03 [facility] Comment on above: Performed By: #### C BC #### [facility] [address] [place] [address] Dr. Temo Mckeon IG % 0.5 % Normal 0.0-0.5 [facility] Comment on above: Performed By: #### C BC #### [facility] [address] [place] [address] Dr. Temo Mckeon LYMPH # 1.8 103/ul Normal 1.2-3.8 [facility] Comment on above: Performed By: #### C BC #### [facility] [address] [place] [address] Dr. Temo Mckeon Lymphocytes/100 WBC (Bld) 19.6 % Critically low 20.5-60.0 [facility] Comment on above: Performed By: #### C BC #### [facility] [address] [place] [address] Dr. Temo Mckeon MANUAL DIFF REQ NO Normal [facility] Comment on above: Performed By: #### C BC #### [facility] [address] [place] [address] Dr. Temo Mckeon MCH (RBC) [Entitic mass] 31.1 pg Normal 25.9-34.0 [facility] Comment on above: Performed By: #### C BC #### [facility] [address] [place] [address] Dr. Temo Mckeon MCHC (RBC) [Mass/Vol] 33.0 g/dL Normal 29.9-35.2 [facility] Comment on above: Performed By: #### C BC #### [facility] [address] [place] [address] Dr. Temo Mckeon MCV (RBC) [Entitic vol] 94.4 fL Critically high 80.0-94.0 [facility] Comment on above: Performed By: #### C BC #### [facility] [address] [place] [address] Dr. Temo Mckeon MONO # 0.7 103/ul Normal 0.3-0.8 [facility] Comment on above: Performed By: #### C BC #### [facility] [address] [address] [address] Temo Mckeon Monocytes/100 WBC (Bld) 7.5 % Normal 1.7-12.0 [facility] Comment on above: Performed By: #### C BC #### [facility] [address] [address] [address] Temo Mckeon NEUT # 6.4 103/ul Normal 1.4-6.5 [facility] Comment on above: Performed By: #### C BC #### [facility] [address] [address] [address] Temo Mckeon Neutrophils/100 WBC (Bld) 68.9 % Normal 43.0-75.0 [facility] Comment on above: Performed By: #### C BC #### [facility] [address] [place] [address] Dr. Temo Mckeon Platelet mean volume (Bld) [Entitic vol] 10.2 fL Normal 9.5-13.5 [facility] Comment on above: Performed By: #### C BC #### [facility] [address] [place] [address] Dr. Temo Mckeon PLT 160 103/ul Normal 150-450 [facility] Comment on above: Performed By: #### C BC #### [facility] [address] [place] [address] Dr. Temo Mckeon RBC 4.11 106/ul Critically low 4.70-6.10 [facility] Comment on above: Performed By: #### C BC #### [facility] [address] [place] [address] Dr. Temo Mckeon WBC 9.3 103/ul Normal 4.0-11.0 [facility] Comment on above: Performed By: #### C BC #### [facility] [address] [place] [address] Dr. Temo Mckeon [facility] SARS-CoV-2 (COVID-19) RNA PRADEEP+probe Ql (Unsp spec) Not detected Normal NOT DETECTED [facility] Comment on above: Result Comment: This test is not yet approved or cleared by the [place] FDA. When there are no FDA-approved or cleared tests available, and other criteria are met, FDA can make tests available under an emergency access mechanism called an Emergency Use Authorization (EUA). The EUA for this test is supported by the Layer Out of Health and Human Service's (HHS's) declaration that circumstances exist to justify the emergency use of in vitro diagnostics for the detection and/or diagnosis of the virus that causes COVID-19. This EUA will remain in effect (meaning this test can be used) for the duration of the COVID-19 declaration justifying emergency of IVDs, unless it is terminated or revoked by FDA (after which the test may no longer be used). When diagnostic testing is negative, the possibility of a false negative should be considered in the context of a patient's recent exposures and the presence of clinical signs and symptoms consistent with SARS-CoV-2. Performed By: #### C BC #### [facility] [address] [place] [address] Dr. Temo Mckeon PROF CHEM 8 (BAS METB)on Anion gap [Moles/Vol] 12.4 mmol/L Normal [facility] Comment on above: Performed By: #### C BC #### [facility] [address] [place] [address] Dr. Temo Mckeon Calcium [Mass/Vol] 8.6 mg/dL Normal 8.5-10.1 [facility] Comment on above: Performed By: #### C BC #### [facility] [address] [place] [address] Dr. Temo Mckeon Chloride [Moles/Vol] 105 mmol/L Normal 98-107 [facility] Comment on above: Performed By: #### C BC #### [facility] [address] [place] [address] Dr. Temo Mckeon CO2 [Moles/Vol] 27.0 mmol/L Normal 22.0-30.0 [facility] Comment on above: Performed By: #### C BC #### [facility] [address] [place] [address] Dr. Temo Mckeon Creatinine [Mass/Vol] 1.57 mg/dL Critically high 0.66-1.25 [facility] Comment on above: Performed By: #### C BC #### [facility] [address] [address] [address] Temo Mckeon EGFR-AF UGANDAN 52 mL/min/1.73m2 Critically low >=60 [facility] Comment on above: Performed By: #### C BC #### [facility] [address] [address] [address] Temo Mckeon EGFR-NON AF UGANDAN 43 mL/min/1.73m2 Critically low >=60 [facility] Comment on above: Performed By: #### C BC #### [facility] [address] [address] [address] Temo Mckeon Glucose [Mass/Vol] 145 mg/dL Critically high 74-106 [facility] Comment on above: Performed By: #### C BC #### [facility] [address] [address] [address] Temo Mckeon Potassium [Moles/Vol] 4.4 mmol/L Normal 3.4-5.0 [facility] Comment on above: Performed By: #### C BC #### [facility] [address] [address] [address] Temo Mckeon Sodium [Moles/Vol] 140 mmol/L Normal 137-145 [facility] Comment on above: Performed By: #### C BC #### [facility] [address] [address] [address] Temo Mckeon Urea nitrogen [Mass/Vol] 32.0 mg/dL Critically high 7.0-18.0 [facility] Comment on above: Performed By: #### C BC #### [facility] [address] [address] [address] Temo Mckeon Urea nitrogen/Creatinine [Mass ratio] 20.4 mg/mg Normal [facility] Comment on above: Performed By: #### C BC #### [facility] [address] [address] [address] Temo Mckeon PROTIMEon 08-21-2021 INR Coag (PPP) [Relative time] 1.04 {INR} Normal [facility] Comment on above: Performed By: #### C BC #### [facility] [address] [place] [address] Dr. Temo Mckeon INR GUIDELINES SEE BELOW Normal [facility] Comment on above: Result Comment: APPLE RED INR: 2.0 - 3.0 CONDITIONS NOT LISTED BELOW 2.5 - 3.5 FOR PROSTHETIC HEART VALVE REPLACEMENT 2.5 - 3.5 RECURRENT THROMBOSIS Performed By: #### C BC #### [facility] [address] [place] [address] Dr. Temo Mckeon PT Coag (PPP) [Time] 11.2 s Normal 9.0-11.6 [facility] Comment on above: Performed By: #### C BC #### [facility] [address] [place] [address] Dr. Temo Mckeon PTTon 08-21-2021 aPTT Coag (Bld) [Time] 25.2 s Normal 22.3-36.2 [facility] Comment on above: Performed By: #### C BC #### [facility] [address] [place] [address] Dr. Temo Mckeon XR KUB 1 VIEWon 07-29-2021 XR KUB 1 VIEW EXAMINATION: XR KUB 1 VIEW HISTORY: Kidney stone COMPARISON: No relevant comparison available. FINDINGS: KIDNEY/URETER - RIGHT: No visible renal or ureteral calcifications. KIDNEY/URETER - LEFT: 5 mm calcification projects over the lower pole PELVIS: No visible ureteral calcifications. Any visible calcifications favor phleboliths. BOWEL: No abnormal dilation or deviation. BONES: Moderate diffuse degenerative changes OTHER: Negative. No abnormal gaseous collections. IMPRESSION: 5 mm right nephrolith Electronically authenticated by: TANISHA MATOS Date: 2021-07-29 09:21 Normal [facility] Covid-19 PCR (CVDTB)on 04-10 SARS-CoV-2 (COVID-19) RNA PRADEEP+probe Ql (Unsp spec) Not detected Normal NOT DETECTED [facility] Comment on above: Result Comment: This test is not yet approved or cleared by the [place] FDA. When there are no FDA-approved or cleared tests available, and other criteria are met, FDA can make tests available under an emergency access mechanism called an Emergency Use Authorization (EUA). The EUA for this test is supported by the Layer Out of Health and Human Service's (HHS's) declaration that circumstances exist to justify the emergency use of in vitro diagnostics for the detection and/or diagnosis of the virus that causes COVID-19. This EUA will remain in effect (meaning this test can be used) for the duration of the COVID-19 declaration justifying emergency of IVDs, unless it is terminated or revoked by FDA (after which the test may no longer be used). When diagnostic testing is negative, the possibility of a false negative should be considered in the context of a patient's recent exposures and the presence of clinical signs and symptoms consistent with SARS-CoV-2. Performed By: #### C [facility] #### [facility] [address] [place] [address] angio chest PE protocolon 03-07-2021 CT angio chest PE protocol [facility] [place] [address] [place] [address] CT Scan Report Signed Patient: Lenin Lam MR#: [id number] 71 : 1945 Acct:[id number] Age/Sex: 75 / M ADM Date: 03/07/21 Loc: CT Room: Type: [facility] Attending Dr: Erika Bender MD Ordering Provider: Erika Bender MD Date of Service: 03/07/21 CT/CT angio chest PE protocol: R06.00 Copies to: Erika Bender MD CTA chest with PE protocol TECHNIQUE: Axial imaging with 2-D and 3-D reconstruction. 66cc of Isovue-[address] exam was performed using one or more the following dose reduction techniques: Automated exposure control, adjustment of the MA and/or Kv according to patient size, or use of the iterative reconstruction technique. History: Dyspnea for several years COMPARISON: None The thyroid gland is normal. Sternal wires present. Central airway is patent. Esophagus is normal in course and caliber. Heart is not enlarged. No pericardial effusion is seen. Nonenlarged mediastinal lymph nodes identified. No hilar mass or adenopathy is seen. No pulmonary embolus is identified. No thoracic aortic aneurysm is seen. Atherosclerosis identified. No lung nodules identified.. No infiltrate or congestion identified. No pleural effusion identified. No pneumothorax identified. No chest wall abnormality seen. Thoracic spondylosis present. Images of the upper abdomen are noncontributory. CT/CT angio chest PE protocol IMPRESSION: No pulmonary embolus. No acute cardiopulmonary disease. Impression dictated by: Balwinder Zambrano M.D.03/07/2021 2:01 PM Dictation Location: [place] [address] Transcribed By: [facility] 03/07/21 1401 Dictated By: Balwinder Zambrano DO 03/07/21 1359 Signed By: 03/07/21 1401 [facility] echo transthoracicon [facility] echo transthoracic [facility] [place] [address] [place] [address] Echocardiogram Signed Patient: Lenin Lam MR#: [id number] 71 : 1945 Acct:[id number] Age/Sex: 75 / M ADM Date: 03/07/21 Loc: CT Room: Type: [facility] Attending Dr: Erika Bender MD Ordering Provider: Erika Bender MD Date of Service: 03/07/21 [facility] echo transthoracic: DYSPNEA Copies to: MD Genesis Shabazz [facility] BSA: 2.3 m2 BP: 174/95 mmHg HR: 58 Reason For Study: DYSPNEA History: Hyperlipidemia,Hyperten martin,CABG,PTCA,Stroke Interpretation Summary Moderate concentric left ventricular hypertrophy. Ejection Fraction = 55-60%. There is left ventricular diastolic dysfunction. The left ventricular wall motion is normal. The left atrium appears mildly dilated. There is trace mitral regurgitation. There is trace tricuspid regurgitation. The study was technically limited. There is no comparison study available. Procedure/Quality: A two-dimensional transthoracic echocardiogram with color flow and Doppler was performed. The study was technically fair in quality. Left Ventricle: Moderate concentric left ventricular hypertrophy. Ejection Fraction = 55-60%. There is left ventricular diastolic dysfunction. The left ventricular wall motion is normal. No left ventricular thrombus or mass is seen. Left Atrium: The left atrium appears mildly dilated. Right Atrium: The right atrium appears normal in size. Right Ventricle: The right ventricle is normal size. The right ventricular systolic function is borderline reduced. Aortic Valve: The aortic valve is mildly sclerotic. No hemodynamically significant valvular aortic stenosis. No aortic regurgitation is present. Mitral Valve: The mitral valve is normal. There is no mitral valve stenosis. There is trace mitral regurgitation. Tricuspid Valve: The tricuspid valve is normal in structure and function. There is trace tricuspid regurgitation. Right ventricular systolic pressure is normal. Pulmonic Valve: The pulmonic valve is not well visualized. Arteries: Mild aortic root dilatation. Pericardium/Pleura: No pericardial effusion seen. IVC/Hepatic Viens: The inferior vena cava was not visualized during the exam. Measurements with Normals IVSd: 1.8 cm (0.7-1.1 cm)LVIDd: 4.9 cm (3.7-5.4 cm) LVPWd: 1.3 cm (0.7-1.1 cm)LVIDs: 3.1 cm (2.3-3.6 cm) LA dimension: 4.3 cm (2.3-4.0 cm)Ao root diam: 4.1 cm(2.0-3.6 cm) asc Aorta Diam: 3.7 cm(2.1-3.4cm) Doppler with Normals RVSP(TR): 25.3 mmHg (18-35mmHg) MV E max neil: 68.1 cm/sec(0.8-1.3m/s) MV A max neil: 70.3 cm/sec(0.0-0.0m/s) MV E/A: 0.97 (<1.5) MMode/2D Measurements Calculations RVDd: 3.3 cm FS: 36.7 % Ao root area: LVLd ap4: 6.8 cm RV S Neil: EDV(Teich): 13.5 cm2 EDV(MOD-sp4): 12.0 cm/sec 115.2 ml 57.6 ml ESV(Teich): LVLs ap4: 5.8 cm 38.8 ml ESV(MOD-sp4): EF(Teich): 66.4 % 25.0 ml EF(MOD-sp4): 56.6 % __ SV(MOD-sp4): LAV(MOD-sp4): LA A2 area: 16.6 cm2 32.6 ml 37.8 ml LAV(MOD-sp2): LA A4 area: 16.7 cm2 39.5 ml LA length (vol): 5.8 cm LA vol: 40.6 ml LA vol index: 17.5 ml/m2 Doppler Measurements Calculations MV dec time: MV max PG: E/E' lat: 5.2 MV dec slope: 0.29 sec 12.0 mmHg E/E' med: 9.9 233.1 cm/sec2 __ MR max neil: TV max PG: TR max neil: 175.1 cm/sec 20.0 mmHg 225.3 cm/sec MR max PG: TR max P.3 mmHg 20.3 mmHg RAP systole: 5.0 mmHg Transcribed By: JULISSA 03/07/21 144 Dictated By: Genesis Thomas DO 03/07/21 1351 Signed By: 03/07/21 1449 [facility] ISTAT XRjeevan CREon 03-07-2021 Creatinine [Mass/Vol] 1.5 mg/dL High 0.6-1.3 [facility] Comment on above: Result Comment: ER/E SD physician is notified/shown all ISTAT results. Critical values may be confirmed by laboratory testing if deemed necessary by ER attending doctor. Performed By: #### I SCRE #### [address] Point of Care testing , ISTAT GFR ( 55 [facility] Comment on above: Result Comment: GFR estimated reference range: According to KDOQI guidelines, <60 ml/min/1.73m2 is sufficient to diagnose a patient with chronic kidney disease. PERFORMED BY: [place] [phone] [facility] POOJA MYERS M.D. Performed By: #### I SCRE #### [facility] [id number] [facility] Point of Care testing , ISTAT GFR (Non- Am 46 Normal [facility] Comment on above: Performed By: #### I SCRE #### [facility] [address] [id number] [facility] Point of Care testing , Vital Signs Date Time Vital Sign Value Performing Clinician Facility 02-01-2023 09:30-0400 Body height 162.56 cm Leo [facility] 02-01-2023 09:30-0400 Body mass index (BMI) [Ratio] 49.6 kg/m2 [facility] 02-01-2023 09:30-0400 Body weight 131.09 kg Leo Ball [facility] 02-01-2023 09:30-0400 Diastolic blood pressure 83 mm[Hg] [facility] 02-01-2023 09:30-0400 Respiratory rate 20 /min [facility] Other 02-01-2023 09:30-0400 SaO2% (BldA) [Mass fraction] 97 % [facility] 02-01-2023 09:30-0400 Systolic blood pressure 147 mm[Hg] Leo [facility] Other 10-30-2022 09:00-0400 Body height 162.56 cm Leo Ball [facility] 10-30-2022 09:00-0400 Body mass index (BMI) [Ratio] 50.67 kg/m2 [facility] 10-30-2022 09:00-0400 Body weight 133.9 kg Leo Ball [facility] 10-30-2022 09:00-0400 Diastolic blood pressure 68 mm[Hg] Leo [facility] 10-30-2022 09:00-0400 Respiratory rate 20 /min Leo [facility] 10-30-2022 09:00-0400 SaO2% (BldA) [Mass fraction] 98 % [facility] 10-30-2022 09:00-0400 Systolic blood pressure 121 mm[Hg] Leo [facility] 08-24-2022 10:32-0400 Blood Pressure Location Demetri LEE [facility] 08-24-2022 10:32-0400 Diastolic blood pressure 73 mm[Hg] Demetri LEE [facility] 08-24-2022 10:32-0400 Heart rate 59 /min Demetri LEE [facility] 08-24-2022 10:32-0400 Respiratory rate 16 /min Demetri LEE [facility] 08-24-2022 10:32-0400 Systolic blood pressure 125 mm[Hg] Demetri LEE [facility] 06-30-2022 09:00-0500 Body height 162.56 cm Leo [facility] 06-30-2022 09:00-0500 Body mass index (BMI) [Ratio] 51.52 kg/m2 Leo [facility] 06-30-2022 09:00-0500 Body weight 136.17 kg Leo Ball [facility] 06-30-2022 09:00-0500 Diastolic blood pressure 84 mm[Hg] Leo Ball [facility] 06-30-2022 09:00-0500 Respiratory rate 20 /min Leo Ball Other [facility] Other 06-30-2022 09:00-0500 Systolic blood pressure 128 mm[Hg] Leo Ball Other [facility] Other 02-23-2022 11:07-0400 Blood Pressure Location Demetri LEE [facility] 02-23-2022 11:07-0400 Diastolic blood pressure 74 mm[Hg] Demetri LEE [facility] 02-23-2022 11:07-0400 Heart rate 76 /min Demetri LEE [facility] 02-23-2022 11:07-0400 Respiratory rate 16 /min Demetri LEE [facility] 02-23-2022 11:07-0400 Systolic blood pressure 128 mm[Hg] Demetri LEE [facility] 08-04-2021 08:51-0400 Blood Pressure Location Demetri LEE [facility] 08-04-2021 08:51-0400 Diastolic blood pressure 72 mm[Hg] Demetri LEE [facility] 08-04-2021 08:51-0400 Heart rate 63 /min Demetri LEE [facility] 08-04-2021 08:51-0400 Respiratory rate 16 /min Demetri LEE [facility] 08-04-2021 08:51-0400 Systolic blood pressure 121 mm[Hg] Demetri LEE [facility] 04-01-2021 12:45-0500 Body height 162.56 cm Erika Bender Other [facility] Other 04-01-2021 12:45-0500 Body mass index (BMI) [Ratio] 51.15 kg/m2 Erika Bender Other [facility] Other 04-01-2021 12:45-0500 Body temperature 97.6 [degF] Erika Bender Other [facility] Other 04-01-2021 12:45-0500 Body weight 135.17 kg Erika Bender Other [facility] Other 04-01-2021 12:45-0500 Diastolic blood pressure 68 mm[Hg] Kamal Chaban Other [facility] Other 04-01-2021 12:45-0500 Respiratory rate 20 /min Fitoal Chaban Other [facility] Other 04-01-2021 12:45-0500 SaO2% (BldA) [Mass fraction] 97 % Erika Chaban Other [facility] Other 04-01-2021 12:45-0500 Systolic blood pressure 140 mm[Hg] Fitoal Chaban Other [facility] Other 03-04-2021 16:15-0400 Body height 162.56 cm Erika Avilaban Other [facility] Other 03-04-2021 16:15-0400 Body mass index (BMI) [Ratio] 51.15 kg/m2 Erika Avilaban Other [facility] Other 03-04-2021 16:15-0400 Body temperature 98.3 [degF] Erika Avilaban Other [facility] Other 03-04-2021 16:15-0400 Body weight 135.17 kg Erika Avilaban Other [facility] Other 03-04-2021 16:15-0400 Diastolic blood pressure 68 mm[Hg] Fitoal Chaban Other [facility] Other 03-04-2021 16:15-0400 Respiratory rate 20 /min Erika Chaban Other [facility] Other 03-04-2021 16:15-0400 SaO2% (BldA) [Mass fraction] 97 % Erika Bender Other [facility] Other 03-04-2021 16:15-0400 Systolic blood pressure 148 mm[Hg] Erika Bender Other [facility] Other Encounters Encounter Date Encounter Type Care Provider Facility Start: 08-30-2023 ambulatory Demetri Ball ty:TOYA Donovan Start: 05-20-2023 End: 05-20-2023 ambulatory CLAUDETTE RICHARDSON Not Available Start: 03-08-2023 End: 03-09-2023 ambulatory Mary Ann Villalobos MD [facility]: [facility] Start: 02-08-2023 End: 02-09-2023 ambulatory Mary Ann Villalobos MD [facility]: [facility] Start: 02-01-2023 End: 02-01-2023 ambulatory Leo Garcias Other [facility] Other Start: 02-01-2023 Office outpatient vi sit 25 minutes Leo Garcias [facility] Start: 01-27-2023 End: 01-27-2023 ambulatory AB [facility] Start: 01-13-2023 End: 01-13-2023 ambulatory Leo Garcias Other [facility] Other Start: 01-13-2023 Telephone encounter Leo CHILDRESS [facility] Start: 11-09-2022 End: 11-09-2022 ambulatory Leo Garcias Other [facility] Other Start: 11-09-2022 Telephone encounter Leo CHILDRESS [facility] Start: 10-30-2022 End: 10-30-2022 ambulatory Leo Dieter Other [facility] Other Start: 10-30-2022 Patient encounter procedure Leo Garcias [facility] Start: 08-24-2022 End: 08-25-2022 ambulatory Demetri LEE Facility:[facility] Start: 08-24-2022 End: 08-24-2022 Patient encounter procedure Demetri LEE [facility] Start: 07-08-2022 End: 07-08-2022 ambulatory Leo Garcias Other [facility] Other Start: 07-08-2022 Telephone encounter Leo Garcias [facility] Start: 06-30-2022 End: 06-30-2022 ambulatory Leo Garcias Other [facility] Other Start: 06-30-2022 Office outpatient vi sit 25 minutes Leo Garcias [facility] Start: 02-23-2022 End: 02-23-2022 Patient encounter procedure Demetri LEE [facility] Start: 02-17-2022 End: 02-18-[address] LEO GARCIAS Facility:[facility] Start: 10-29-2021 End: 10-30-[address] LEO GARCIAS Facility:[facility] Start: 10-22-2021 Adult health examination Louis Garcias Other [facility] Other Start: 08-28-2021 End: 08-28-[address] DEMETRI LEE Facility:[facility] Start: 08-25-2021 Encounter for preprocedural cardiovascular examination DR DEMETRI LEE [facility] Start: 08-25-2021 Encounter for preprocedural laboratory examination DR DEMETRI LEE [facility] Start: 08-25-[address] DEMETRI LEE [facility] ity:[facility] Start: 08-21-2021 End: 08-22-[address] DEMETRI LEE Facility:[facility] Start: 08-21-2021 End: 08-22-2021 Encounter for preprocedural cardiovascular examination DR DEMETRI LEE Facility:[facility] Start: 08-04-2021 End: 08-04-2021 Patient encounter procedure Demetri LEE [facility] Start: 07-29-2021 End: 07-30-[address] DEMETRI LEE Facility:[facility] Start: 05-05-2021 End: 05-05-[address] LEO GARCIAS Facility:[facility] Start: 04-01-2021 End: 04-01-2021 ambulatory Kamal Chaban Other [facility] Other Start: 04-01-2021 Office outpatient vi sit 15 minutes Kamal Chaban [facility] Start: 03-04-2021 Office outpatient ne w 45 minutes Kamal Chaban [facility] Start: 08-28-2019 Preoperative cardiovascular examination Leo Garcias Other [place] [facility] Other Start: 07-06-2018 End: 07-07-2018 Patient encounter procedure DEFAULT PHYSICIAN Facility:[facility] Start: 07-04-2018 End: 07-05-2018 Patient encounter procedure DEFAULT PHYSICIAN Facility:[facility] Start: 07-01-2018 End: 07-02-2018 Patient encounter procedure DEFAULT PHYSICIAN Facility:[facility] Procedures Date Procedure Procedure Detail Performing Clinician Start: 10-29-[address] BETZY GARCIAS Comment on above: Performed By: #### C BC #### [facility] [address] [place] [address] Dr. Temo Mckeon Start: 08-28-2021 Extracorporeal shock wave lithotripsy of calculus of kidney Demetri LEE Start: 01-26-2019 Cystoscopy Demetri ZIEGLER Start: 01-05-2019 Cystoscopy Demetri CLARKES Start: 12-16-2018 Preoperative cardiov ascular examination Leo Garcias Other Start: 08-23-2015 General examination of patient Leo Garcias Other Start: 08-23-2015 Screening for malign ant neoplasm of colon Leo Garcias Other Start: 08-23-2015 Screening for malign ant neoplasm of prostate Leo Garcias Other Start: 01-31-2014 Pre-surgery evaluation Leo Garcias Other Depression screening Drake Garcias Other Screening for malign ant neoplasm of prostate Leo Garcias Other Immunizations Immunization Date Immunization Notes Care Provider Caitie granda 02-01-2023 influenza, high dose seasonal, preservative-free Leo Garcias Other [facility] Other 03-23-2022 COVID-19 Pfizer (bivalent) Leo Garcias Other [facility] Other 02-24-2022 influenza virus vaccine, split virus (incl. purified surface antigen) Leo Garcias Other [facility] Other 02-24-2022 influenza, high dose seasonal, preservative-free Leo Garcias Other [facility] Other 03-26-2021 SARS-CoV-2 (COVID-19 ) mRNA BNT-162b2 vax Demetrirafael LEE [facility] Comment on above: Result Comment: 2021: [id number] 02-21-2021 influenza virus vaccine, split virus (incl. purified surface antigen) Leo Garcias Other [facility] Other 02-07-2021 influenza virus vaccine, unspecified formulation Demetri SAMEER [facility] 07-30-2020 COVID-19 Vaccine Pfi zer - Documentation Purposes Only Erika Bender Other [facility] 07-08-2020 COVID-19 Vaccine Pfi zer - Documentation Purposes Only Erika Bender Other [facility] 05-10-2020 SARS-CoV-2 (COVID-19 ) mRNA BNT-162b2 vax Demetri LEE [facility] Comment on above: Result Comment: pt h as had 3 shots to date 02-29-2020 influenza virus vaccine, split virus (incl. purified surface antigen) Leo Garcias Other [facility] Other 02-16-2019 influenza virus vaccine, split virus (incl. purified surface antigen) eLo Garcias Other [facility] Other 01-24-2018 influenza virus vaccine, split virus (incl. purified surface antigen) Leo Garcias Other [facility] Other 01-24-2018 influenza virus vaccine, unspecified formulation Demetri LEE [facility] 01-24-2018 pneumococcal Conjuga te, unspecified formulation; Translations: [Need for prophylactic vaccination against Streptococcus pneumoniae (pneumococcus)] Leo Garcias Other [facility] Other 01-24-2018 pneumococcal polysaccharide vaccine, 23 valent Demetrirafael LEE [facility] 02-18-2017 influenza virus vaccine, split virus (incl. purified surface antigen) Leo Garcias Other [facility] Other 02-18-2017 influenza virus vaccine, unspecified formulation Demetrirafael LEE [facility] 02-12-2016 influenza virus vaccine, split virus (incl. purified surface antigen) Leo Garcias Other [facility] Other 02-12-2016 influenza virus vaccine, unspecified formulation Demetri LEE [facility] 02-28-2015 tetanus and diphther ia toxoids, adsorbed, preservative free, for adult use (5 Lf of tetanus toxoid and 2 Lf of diphtheria toxoid) Leo Garcias Other [facility] Other 02-28-2015 pneumococcal conjuga te vaccine, 13 valent Leo Garcias Other [facility] Other 02-16-2014 tetanus and diphther ia toxoids, adsorbed, preservative free, for adult use (5 Lf of tetanus toxoid and 2 Lf of diphtheria toxoid) Leo Garcias Other [facility] Other 02-08-2013 tetanus and diphther ia toxoids, adsorbed, preservative free, for adult use (5 Lf of tetanus toxoid and 2 Lf of diphtheria toxoid) Leo Garcias Other [facility] Other 02-17-2012 tetanus and diphther ia toxoids, adsorbed, preservative free, for adult use (5 Lf of tetanus toxoid and 2 Lf of diphtheria toxoid) Leo Garcias Other [facility] Other 02-13-2009 pneumococcal polysaccharide vaccine, 23 valent Leo Garcias Other [facility] Other 10-17-2003 Td(adult) unspecifie d formulation Demetri LEE [facility] Payers Date Payer Category Payer Medicare 2022 Private Health Insurance 1958 Medicare [id number] 2.1 [id number] 1959 Private Health Insurance [id number] 1946 Unknown [id number] 2.16.8 [id number] 1945 Unknown [id number] 2.16.8 40.1.606659.3.579.2.647 1946 Unknown [id number] 2.16.8 40.1.045693.3.579.2.647 1946 Unknown [id number] 2.16.84 0.1.702223.3.579.2.593 1946 Unknown [id number] 2.16.84 0.1.858492.3.579.2.593 1946 Unknown [id number] 2.16.84 0.1.646761.3.579.2.593 1946 Unknown [id number] 2.16.84 0.1.385822.3.579.2.593 1946 Unknown [id number] 2.16.84 0.1.631517.3.579.2.593 1946 Unknown [id number] 2.16.84 0.1.196844.3.579.2.593 1946 Unknown [id number] 2.16.84 0.1.474679.3.579.2.593 1946 Unknown [id number] 2.16.84 0.1.712172.3.579.2.593 1946 Unknown [id number] 2.16. 840.1.308688.3.579.2.196 1946 Unknown [id number] 2.16. 840.1.964310.3.579.2.196 1946 Unknown [id number] 2.16.84 0.1.572840.3.579.2.1259 1946 Unknown [id number] 2.16.8 40.1.100905.3.579.2.727 1946 Unknown [id number] 2.16.8 40.1.337099.3.579.2.727 Unknown Social History Date Type Detail Facility Start: 01-30-2021 End: 02-23-2022 Tobacco smoking status Never smoked tobacco (finding) [employer] [facility] [employer] Other Sex Assigned At Male [facility] [employer] Other Tobacco smoking status Never [facility] Functional Status Date Assessment Result Facility 08-24-2022 Functional Status N/A [facility] 02-23-2022 Functional Status N/A [facility] Clinical Notes 12-09-2020 to 02-01-2023 Note Date & Type Note Facility 02-01-2023 Evaluation note Encounter Date Diagnosis Assessment Notes Jan, ASHD (arteriosclerotic heart disease) (ICD-10 - I25.10) This patient is stable without activity related CP, dyspnea or lightheadedness. They are instructed to continue exercise and AHA diet plan. Continue secondary prevention measures. Jan, Primary hypertension (ICD-10 - I10) This patient is instructed to consume a healthy, low-fat, low-salt diet. They are also encouraged to continue exercise to achieve/maintain a normal BMI. Patient is instructed on home BP measurements: - rest for 5 minutes w/o talking- positioned w/ feet on floor and arm supported- average best 2/3 readings w/ goal < 135/85 Jan, Elevated cholesterol (ICD-10 - E78.00) Instructed on diet and exercise with continued statin therapy.Discussed the beneficial effects of lowering cholesterol in reducing the risk for cerebrovascular and cardiovascular disease. Jan, ADITHYA (obstructive sleep apnea) (ICD-10 - G47.33) This patient is aware of the benefits associated with ADITHYA: With continued use, the patient reduces the risk for OR, CVA, HTN, cardiac dysrhythmias and sudden cardiac deaths.The patient is also aware of the association between ADITHYA and morning headaches, daytime somnolence, fatigue and obesity, which also has been improved with continued use.The patient is compliant with treatment, wearing the equipment every night for greater than 4 hours.The patient is instructed to continue use of the CPAP for ADITHYA treatment. Jan, Benign prostatic hyperplasia with lower urinary tract symptoms (ICD-10 - N40.1) Symptoms tolerable Continue yearly PSA Jan, Lumbar spondylosis (ICD-10 - M47.816) The patient is instructed to avoid bending, twisting or lifting. They are to use intermittent heat and ice as needed. They may schedule a massage or gentle manipulation. They may safely use Tylenol as needed. Refer to pain management for additional options Jan, Gastroesophageal reflux disease with esophagitis without hemorrhage (ICD-10 - K21.00) Diet instructions: Smaller portions, avoid eating and laying flat, avoid eating or drinking prior to bedtime. Weight loss. Jan, Chronic venous insufficiency (ICD-10 - I87.2) Avoid salt and elevate lower extremities, support stockings, inspect legs and feet daily for blisters and ulcerations. Jan, Nicotine dependence, cigarettes, in remission (ICD-10 - F17.211) Continue abstinence [facility] Chief Complaint: Patient here for 1 year follow up CAD and hypertension. Had labs in October 2022. Denies chest pain. Still has MONTES but states it's no more than his usual. Still goes to cardiac rehab twice a week. Has been wearing compression stockings for LE edema. HPI: Lenin Lam is a 77 y.o. male With a history of coronary artery disease, hypertension and morbid obesity here in routine follow Up Doing well; apart from his chronic shortness of breath which is unchanged, he has no new symptoms Cardiology ROS: Review of Systems Cardiovascular: Positive for dyspnea on exertion and leg swelling. Musculoskeletal: Positive for arthritis and back pain. All other systems reviewed and are negative. Past Medical History He has no past medical history on file. Surgical History He has no past surgical history on file. Social History He has no history on file for tobacco use, alcohol use, and drug use. Family History No family history on file. Allergies Patient has no allergy information on record. Medications Current Outpatient Medications: amLODIPine-benazepriL (Lotrel) 10-20 mg capsule, TAKE 1 CAPSULE BY MOUTH EVERY DAY, Disp: 90 capsule, Rfl: 2 Last Recorded Vitals BP 135/67 (BP Location: Left wrist, Patient Position: Sitting) Pulse 57 Ht 1.651 m (5' 5 ) Wt 133 kg (294 lb) SpO2 95% BMI 48.92 kg/m??? Physical Examination: GENERAL: alert and oriented x3, well developed, in no acute distress. HEAD: atraumatic, normocephalic. EYES: MARGIE, EOMI. NECK: trachea midline, no JVD present, no carotid bruits present. CARDIAC: S1, S2 present. RRR. No murmur, rubs, or gallops. RESPIRATORY: CTAB, no increased effort of breathing, no rales, rhonchi, or wheezing. ABDOMEN: soft, nontender, nondistended. EXTREMITIES: no lower extremity edema, peripheral pulses are 2+ bilaterally. No rash/skin discoloration present. NEURO: strength/sensation equal and symmetric in bilateral upper and lower extremities. PSYCH: appropriate mood, affect, and judgement. Investigations: Labs: Creatinine 1.61, BUN 29 GFR 42 Triglycerides 124, total cholesterol 111, LDL 42.2, HDL 44 Assessment: Coronary atherosclerosis s/p PCI RCA 2017 Carotid artery stenosis Essential hypertension Dyslipidemia Morbid obesity Plan: Continue current medical therapy for coronary artery disease including aspirin, Plavix, statin, beta-remy and Imdur A complete echocardiogram Carotid Dopplers to serially monitor his carotid artery stenosis Return to clinic in 1 year or sooner should problems arise Shalonda Rai MD, MPH, [facility], [facility], [facility] Interventional Cardiology Pager Email: [email or web address] Evaluation note* Encounter Date Diagnosis Assessment Notes Treatment Notes Treatment Clinical Notes Jan, Lumbosacral spondylosis with radiculopathy (ICD-10 - M47.27) [facility] Other 06-23-2023 Evaluation note* Encounter Date Diagnosis Assessment Notes Treatment Notes Treatment Clinical Notes Oct, Medicare annual wellness visit, subsequent (ICD-10 - Z00.00) Personalized health advice was given to the beneficiary including a written plan for screenings discussed and provided. Advanced care planning reviewed and/or information given as requested. Additional counseling was provided here today in regards to, [ ]. The above visit was performed by [ ], under direct supervision of [ ]. Document reviewed and amended by provider signed below. Oct, ASHD (arteriosclerotic heart disease) (ICD-10 - I25.10) This patient is stable without activity related CP, dyspnea or lightheadedness. They are instructed to continue exercise and AHA diet plan. Oct, Primary hypertension (ICD-10 - I10) This patient is instructed to consume a healthy, low-fat, low-salt diet. They are also encouraged to continue exercise to achieve/maintain a normal BMI. Oct, Elevated cholesterol (ICD-10 - E78.00) Instructed on diet and exercise with continued statin therapy.Discussed the beneficial effects of lowering cholesterol in reducing the risk for cerebrovascular and cardiovascular disease. Oct, ADITHYA (obstructive sleep apnea) (ICD-10 - G47.33) This patient is aware of the benefits associated with ADITHYA: With continued use, the patient reduces the risk for OR, CVA, HTN, cardiac dysrhythmias and sudden cardiac deaths.The patient is also aware of the association between ADITHYA and morning headaches, daytime somnolence, fatigue and obesity, which also has been improved with continued use.The patient is compliant with treatment, wearing the equipment every night for greater than 4 hours.The patient is instructed to continue use of the CPAP for ADITHYA treatment. Oct, Benign prostatic hyperplasia with lower urinary tract symptoms (ICD-10 - N40.1) Symptoms tolerable. f/u Oct, Lumbar spondylosis (ICD-10 - M47.816) The patient is instructed to avoid bending, twisting or lifting. They are to use intermittent heat and ice as needed. They may schedule a massage or gentle manipulation. They may safely use Tylenol as needed. Oct, Gastroesophageal reflux disease with esophagitis without hemorrhage (ICD-10 - K21.00) Diet instructions: Smaller portions, avoid eating and laying flat, avoid eating or drinking prior to bedtime. Weight loss. Oct, Chronic venous insufficiency (ICD-10 - I87.2) Avoid salt and elevate lower extremities, support stockings, inspect legs and feet daily for blisters and ulcerations. Oct, Nicotine dependence, cigarettes, in remission (ICD-10 - F17.211) Oct, High risk medication use (ICD-10 - Z79.899) [facility] Other 04-17-2023 Hospital Discharge instructions Patient Education 08/24/2022 08:24:55 Benign Prostatic Hyperplasia Benign Prostatic Hyperplasia Benign prostatic hyperplasia (BPH) is an enlarged prostate gland that is caused by the normal agingprocess and not by cancer. The prostate is a walnut-sized gland that is involved in the production of semen. It is located in front of the rectum and below the bladder. The bladder stores urine and the urethra is the tube that carries the urine out of the body. The prostate may get bigger as a man gets older. An enlarged prostate can press on the urethra. This can make it harder to pass urine. The build-up of urine in the bladder can cause infection. Back pressure and infection may progress to bladder damage and kidney (renal) failure. What are the causes? This condition is part of a normal aging process. However, not all men develop problems from this condition. If the prostate enlarges away from the urethra, urine flow will not be blocked. If it enlarges toward the urethra and compresses it, there will be problems passing urine. What increases the risk? This condition is more likely to develop in men over the age of 50 years. What are the signs or symptoms? Symptoms of this condition include: Getting up often during the night to urinate. Needing to urinate frequently during the day. Difficulty starting urine flow. Decrease in size and strength of your urine stream. Leaking (dribbling) after urinating. Inability to pass urine. This needs immediate treatment. Inability to completely empty your bladder. Pain when you pass urine. This is more common if there is also an infection. Urinary tract infection (UTI). How is this diagnosed? This condition is diagnosed based on your medical history, a physical exam, and your symptoms. Tests will also be done, such as: A post-void bladder scan. This measures any amount of urine that may remain in your bladder after you finish urinating. A digital rectal exam. In a rectal exam, your health care provider checks your prostate by putting a lubricated, gloved finger into your rectum to feel the back of your prostate gland. This exam detects the size of your gland and any abnormal lumps or growths. An exam of your urine (urinalysis). A prostate specific antigen (PSA) screening. This is a blood test used to screen for prostate cancer. An ultrasound. This test uses sound waves to electronically produce a picture of your prostate gland. Your health care provider may refer you to a specialist in kidney and prostate diseases (urologist). How is this treated? Once symptoms begin, your health care provider will monitor your condition (active surveillance or watchful waiting). Treatment for this condition will depend on the severity of your condition. Treatment may include: Observation and yearly exams. This may be the only treatment needed if your condition and symptoms are mild. Medicines to relieve your symptoms, including: ?Medicines to shrink the prostate. ?Medicines to relax the muscle of the prostate. Surgery in severe cases. Surgery may include: ?Prostatectomy. In this procedure, the prostate tissue is removed completely through an open incision or with a laparoscope or robotics. ?Transurethral resection of the prostate (TURP). In this procedure, a tool is inserted through the opening at the tip of the penis (urethra). It is used to cut away tissue of the inner core of the prostate. The pieces are removed through the same opening of the penis. This removes the blockage. ?Transurethral incision (TUIP). In this procedure, small cuts are made in the prostate. This lessens the prostate's pressure on the urethra. ?Transurethral microwave thermotherapy (TUMT). This procedure uses microwaves to create heat. The heat destroys and removes a small amount of prostate tissue. ?Transurethral needle ablation (TUNA). This procedure uses radio frequencies to destroy and remove a small amount of prostate tissue. ?Interstitial laser coagulation (ILC). This procedure uses a laser to destroy and remove a small amount of prostate tissue. ?Transurethral electrovaporization (TUVP). This procedure uses electrodes to destroy and remove a small amount of prostate tissue. ?Prostatic urethral lift. This procedure inserts an implant to push the lobes of the prostate away from the urethra. Follow these instructions at home: Take btpm-exa-hojcamm and prescription medicines only as told by your health care provider. Monitor your symptoms for any changes. Contact your health care provider with any changes. Avoid drinking large amounts of liquid before going to bed or out in public. Avoid or reduce how much caffeine or alcohol you drink. Give yourself time when you urinate. Keep all follow-up visits as told by your health care provider. This is important. Contact a health care provider if: You have unexplained back pain. Your symptoms do not get better with treatment. You develop side effects from the medicine you are taking. Your urine becomes very dark or has a bad smell. Your lower abdomen becomes distended and you have trouble passing your urine. Get help right away if: You have a fever or chills. You suddenly cannot urinate. You feel lightheaded, or very dizzy, or you faint. There are large amounts of blood or clots in the urine. Your urinary problems become hard to manage. You develop moderate to severe low back or flank pain. The flank is the side of your body between the ribs and the hip. These symptoms may represent a serious problem that is an emergency. Do not wait to see if the symptoms will go away. Get medical help right away. Call your local emergency services (911 in the [place] Do not drive yourself to the hospital. Summary Benign prostatic hyperplasia (BPH) is an enlarged prostate that is caused by the normal aging process and not by cancer. An enlarged prostate can press on the urethra. This can make it hard to pass urine. This condition is part of a normal aging process and is more likely to develop in men over the age of 50 years. Get help right away if you suddenly cannot urinate. This information is not intended to replace advice given to you by your health care provider. Make sure you discuss any questions you have with your health care provider. Document Released: 04/26/2006 Document Revised: 03/21/2019 Document Reviewed: 05/31/2017 S B E Patient Education 2020 [employer]. Follow Up Care 02/23/2022 11:36:40 With:SAMEER MONTIEL, Demetri Sequeira, URL Address: [facility] [address] [place] [address]- When: Unknown [facility] 02-21-2023 Evaluation note* Encounter Date Diagnosis Assessment Notes Treatment Notes Treatment Clinical Notes Jun, ASHD (arteriosclerotic heart disease) (ICD-10 - I25.10) This patient is stable without activity related CP, dyspnea or lightheadedness. They are instructed to continue exercise and AHA diet plan. Jun, Primary hypertension (ICD-10 - I10) This patient is instructed to consume a healthy, low-fat, low-salt diet. They are also encouraged to continue exercise to achieve/maintain a normal BMI. Jun, Elevated cholesterol (ICD-10 - E78.00) Diet and exercise with continued statin therapy. Jun, ADITHYA (obstructive sleep apnea) (ICD-10 - G47.33) This patient is aware of the benefits associated with ADITHYA: With continued use, the patient reduces the risk for OR, CVA, HTN, cardiac dysrhythmias and sudden cardiac deaths.The patient is also aware of the association between ADITHYA and morning headaches, daytime somnolence, fatigue and obesity, which also has been improved with continued use.The patient is compliant with treatment, wearing the equipment every night for greater than 4 hours.The patient is instructed to continue use of the CPAP for ADITHYA treatment. Jun, Atherosclerotic cerebrovascular disease (ICD-10 - I67.2) Continue secondary prevention: control BP, Chol and continue ASA and statin therapy. Carotid US < 50% 2019Jun, Venous stasis dermatitis of both lower extremities (ICD-10 - I87.2) Avoid salt and elevate lower extremities, support stockings, inspect legs and feet daily for blisters and ulcerations. Moisterizers twice daily. Topical steroids for itching Jun, Morbid exogenous obesity (ICD-10 - E66.01) This patient has been instructed on a low-fat, high-fiber diet. They are instructed to reduce calories, portion sizes and snacks. It is recommended that they exercise for 30 minutes, 3-5 times weekly. Jun, Lumbosacral spondylosis with radiculopathy (ICD-10 - M47.27) Jun, Chronic dyspnea (ICD-10 - R06.09) Multifactorial: obesity, ADITHYA, ASHD, RLD and deconditioning. Instructed to increase activity as tolerated Jun, Nocturia (ICD-10 - R35.1) Jun, Benign prostatic hyperplasia with lower urinary tract symptoms (ICD-10 - N40.1) f/u w/ yearly PSA Jun, Hx of cerebral infarction (ICD-10 - Z86.73) Carotid US: < 50% - 09/2019 No further focal neurologic deficits since initial CVA > 20 years ago [facility] Other 10-17-2022 Hospital Discharge instructions Patient Education 02/23/2022 11:32:02 Kidney Stones, Iuvu-au-Jmfj Kidney Stones Kidney stones are rock-like masses that form inside of the kidneys. Kidneys are organs that make pee (urine). A kidney stone may move into other parts of the urinary tract, including: The tubes that connect the kidneys to the bladder (ureters). The bladder. The tube that carries urine out of the body (urethra). Kidney stones can cause very bad pain and can block the flow of pee. The stone usually leaves your body (passes) through your pee. You may need to have a doctor take out the stone. What are the causes? Kidney stones may be caused by: A condition in which certain glands make too much parathyroid hormone (primary hyperparathyroidism). A buildup of a type of crystals in the bladder made of a chemical called uric acid. The body makes uric acid when you eat certain foods. Narrowing (stricture) of one or both of the ureters. A kidney blockage that you were born with. Past surgery on the kidney or the ureters, such as gastric bypass surgery. What increases the risk? You are more likely to develop this condition if: You have had a kidney stone in the past. You have a family history of kidney stones. You do not drink enough water. You eat a diet that is high in protein, salt (sodium), or sugar. You are overweight or very overweight (obese). What are the signs or symptoms? Symptoms of a kidney stone may include: Pain in the side of the belly, right below the ribs (flank pain). Pain usually spreads (radiates) to the groin. Needing to pee often or right away (urgently). Pain when going pee (urinating). Blood in your pee (hematuria). Feeling like you may vomit (nauseous). Vomiting. Fever and chills. How is this treated? Treatment depends on the size, location, and makeup of the kidney stones. The stones will often pass out of the body through peeing. You may need to: Drink more fluid to help pass the stone. In some cases, you may be given fluids through an IV tube put into one of your veins at the hospital. Take medicine for pain. Make changes in your diet to help keep kidney stones from coming back. Sometimes, medical procedures are needed to remove a kidney stone. This may involve: A procedure to break up kidney stones using a beam of light (laser) or shock waves. Surgery to remove the kidney stones. Follow these instructions at home: Medicines Take negl-tcq-ygvjgmr and prescription medicines only as told by your doctor. Ask your doctor if the medicine prescribed to you requires you to avoid driving or using heavy machinery. Eating and drinking Drink enough fluid to keep your pee pale yellow. You may be told to drink at least 8 10 glasses of water each day. This will help you pass the stone. If told by your doctor, change your diet. This may include: ?Limiting how much salt you eat. ?Eating more fruits and vegetables. ?Limiting how much meat, poultry, fish, and eggs you eat. Follow instructions from your doctor about eating or drinking restrictions. General instructions Collect pee samples as told by your doctor. You may need to collect a pee sample: ?24 hours after a stone comes out. ?8 12 weeks after a stone comes out, and every 6 12 months after that. Strain your pee every time you pee (urinate), for as long as told. Use the strainer that your doctor recommends. Do not throw out the stone. Keep it so that it can be tested by your doctor. Keep all follow-up visits as told by your doctor. This is important. You may need follow-up tests. How is this prevented? To prevent another kidney stone: Drink enough fluid to keep your pee pale yellow. This is the best way to prevent kidney stones. Eat healthy foods. Avoid certain foods as told by your doctor. You may be told to eat less protein. Stay at a healthy weight. Where to find more information National Kidney Foundation (NKF): www.kidney.org [facility] (UCF): www.urologyhealth.org Contact a doctor if: You have pain that gets worse or does not get better with medicine. Get help right away if: You have a fever or chills. You get very bad pain. You get new pain in your belly (abdomen). You pass out (faint). You cannot pee. Summary Kidney stones are rock-like masses that form inside of the kidneys. Kidney stones can cause very bad pain and can block the flow of pee. The stones will often pass out of the body through peeing. Drink enough fluid to keep your pee pale yellow. This information is not intended to replace advice given to you by your health care provider. Make sure you discuss any questions you have with your health care provider. Document Released: 10/12/2008 Document Revised: 09/12/2019 Document Reviewed: 09/12/2019 [employer] Patient Education 2019 [employer]. Follow Up Care 08/28/2021 11:53:17 With:SAMEER MONTIEL, Demetri Sequeira, LEXUS Address: [facility] [address], [place] [address] [phone] When:08/24/2022 [facility] 03-28-2022 Hospital Discharge instructions Patient Education 08/04/2021 09:36:42 Lithotripsy, Care After Lithotripsy, Care After This sheet gives you information about how to care for yourself after your procedure. Your health care provider may also give you more specific instructions. If you have problems or questions, contact your health care provider. What can I expect after the procedure? After the procedure, it is common to have: Some blood in your urine. This should only last for a few days. Soreness in your back, sides, or upper abdomen for a few days. Blotches or bruises on your back where the pressure wave entered the skin. Pain, discomfort, or nausea when pieces (fragments) of the kidney stone move through the tube that carries urine from the kidney to the bladder (ureter). Stone fragments may pass soon after the procedure, but they may continue to pass for up to 4 8 weeks. ?If you have severe pain or nausea, contact your health care provider. This may be caused by a large stone that was not broken up, and this may mean that you need more treatment. Some pain or discomfort during urination. Some pain or discomfort in the lower abdomen or (in men) at the base of the penis. Follow these instructions at home: Medicines Take pkqi-mft-sbnsied and prescription medicines only as told by your health care provider. If you were prescribed an antibiotic medicine, take it as told by your health care provider. Do notstop taking the antibiotic even if you start to feel better. Do not drive for 24 hours if you were given a medicine to help you relax (sedative). Do not drive or use heavy machinery while taking prescription pain medicine. Eating and drinking Drink enough water and fluids to keep your urine clear or pale yellow. This helps any remaining pieces of the stone to pass. It can also help prevent new stones from forming. Eat plenty of fresh fruits and vegetables. Follow instructions from your health care provider about eating and drinking restrictions. You may be instructed: ?To reduce how much salt (sodium) you eat or drink. Check ingredients and nutrition facts on packaged foods and beverages. ?To reduce how much meat you eat. Eat the recommended amount of calcium for your age and gender. Ask your health care provider how much calcium you should have. General instructions Get plenty of rest. Most people can resume normal activities 1 2 days after the procedure. Ask your health care provider what activities are safe for you. Your health care provider may direct you to lie in a certain position (postural drainage) and tap firmly (percuss) over your kidney area to help stone fragments pass. Follow instructions as told by your health care provider. If directed, strain all urine through the strainer that was provided by your health care provider. ?Keep all fragments for your health care provider to see. Any stones that are found may be sent to a medical lab for examination. The stone may be as small as a grain of salt. Keep all follow-up visits as told by your health care provider. This is important. Contact a health care provider if: You have pain that is severe or does not get better with medicine. You have nausea that is severe or does not go away. You have blood in your urine longer than your health care provider told you to expect. You have more blood in your urine. You have pain during urination that does not go away. You urinate more frequently than usual and this does not go away. You develop a rash or any other possible signs of an allergic reaction. Get help right away if: You have severe pain in your back, sides, or upper abdomen. You have severe pain while urinating. Your urine is very dark red. You have blood in your stool (feces). You cannot pass any urine at all. You feel a strong urge to urinate after emptying your bladder. You have a fever or chills. You develop shortness of breath, difficulty breathing, or chest pain. You have severe nausea that leads to persistent vomiting. You faint. Summary After this procedure, it is common to have some pain, discomfort, or nausea when pieces (fragments)of the kidney stone move through the tube that carries urine from the kidney to the bladder (ureter). If this pain or nausea is severe, however, you should contact your health care provider. Most people can resume normal activities 1 2 days after the procedure. Ask your health care provider what activities are safe for you. Drink enough water and fluids to keep your urine clear or pale yellow. This helps any remaining pieces of the stone to pass, and it can help prevent new stones from forming. If directed, strain your urine and keep all fragments for your health care provider to see. Fragments or stones may be as small as a grain of salt. Get help right away if you have severe pain in your back, sides, or upper abdomen or have severe pain while urinating. This information is not intended to replace advice given to you by your health care provider. Make sure you discuss any questions you have with your health care provider. Document Released: 05/15/2008 Document Revised: 08/07/2019 Document Reviewed: 03/17/2017 S B E Patient Education 2020 [employer]. 08/04/2021 09:25:02 Calorie Counting for Weight Loss Calorie Counting for Weight Loss Calories are units of energy. Your body needs a certain amount of calories from food to keep you going throughout the day. When you eat more calories than your body needs, your body stores the extra calories as fat. When you eat fewer calories than your body needs, your body pollack fat to get the energy it needs. Calorie counting means keeping track of how many calories you eat and drink each day. Calorie counting can be helpful if you need to lose weight. If you make sure to eat fewer calories than your bodyneeds, you should lose weight. Ask your health care provider what a healthy weight is for you. For calorie counting to work, you will need to eat the right number of calories in a day in order to lose a healthy amount of weight per week. A dietitian can help you determine how many calories youneed in a day and will give you suggestions on how to reach your calorie goal. A healthy amount of weight to lose per week is usually 1 2 lb (0.5 0.9 kg). This usually means thatyour daily calorie intake should be reduced by 500 750 calories. Eating 1,200 1,500 calories per day can help most women lose weight. Eating 1,500 1,800 calories per day can help most men lose weight. What is my plan? My goal is to have calories per day. If I have this many calories per day, I should lose around pounds per week. What do I need to know about calorie counting? In order to meet your daily calorie goal, you will need to: Find out how many calories are in each food you would like to eat. Try to do this before you eat. Decide how much of the food you plan to eat. Write down what you ate and how many calories it had. Doing this is called keeping a food log. To successfully lose weight, it is important to balance calorie counting with a healthy lifestyle that includes regular activity. Aim for 150 minutes of moderate exercise (such as walking) or 75 minutes of vigorous exercise (such as running) each week. Where do I find calorie information? The number of calories in a food can be found on a Nutrition Facts label. If a food does not have aNutrition Facts label, try to look up the calories online or ask your dietitian for help. Remember that calories are listed per serving. If you choose to have more than one serving of a food, you will have to multiply the calories per serving by the amount of servings you plan to eat. Forexample, the label on a package of bread might say that a serving size is 1 slice and that there are 90 calories in a serving. If you eat 1 slice, you will have eaten 90 calories. If you eat 2 slices, you will have eaten 180 calories. How do I keep a food log? Immediately after each meal, record the following information in your food log: What you ate. Don't forget to include toppings, sauces, and other extras on the food. How much you ate. This can be measured in cups, ounces, or number of items. How many calories each food and drink had. The total number of calories in the meal. Keep your food log near you, such as in a small notebook in your pocket, or use a mobile marissa or website. Some programs will calculate calories for you and show you how many calories you have left forthe day to meet your goal. What are some calorie counting tips? Use your calories on foods and drinks that will fill you up and not leave you hungry: ?Some examples of foods that fill you up are nuts and nut butters, vegetables, lean proteins, and high-fiber foods like whole grains. High-fiber foods are foods with more than 5 g fiber per serving. ?Drinks such as sodas, specialty coffee drinks, alcohol, and juices have a lot of calories, yet do not fill you up. Eat nutritious foods and avoid empty calories. Empty calories are calories you get from foods or beverages that do not have many vitamins or protein, such as candy, sweets, and soda. It is better to have a nutritious high-calorie food (such as an avocado) than a food with few nutrients (such as a bag of chips). Know how many calories are in the foods you eat most often. This will help you calculate calorie counts faster. Pay attention to calories in drinks. Low-calorie drinks include water and unsweetened drinks. Pay attention to nutrition labels for low fat or fat free foods. These foods sometimes have thesame amount of calories or more calories than the full fat versions. They also often have added sugar, starch, or salt, to make up for flavor that was removed with the fat. Find a way of tracking calories that works for you. Get creative. Try different apps or programs ifwriting down calories does not work for you. What are some portion control tips? Know how many calories are in a serving. This will help you know how many servings of a certain food you can have. Use a measuring cup to measure serving sizes. You could also try weighing out portions on a kitchenscale. With time, you will be able to estimate serving sizes for some foods. Take some time to put servings of different foods on your favorite plates, bowls, and cups so you know what a serving looks like. Try not to eat straight from a bag or box. Doing this can lead to overeating. Put the amount you would like to eat in a cup or on a plate to make sure you are eating the right portion. Use smaller plates, glasses, and bowls to prevent overeating. Try not to multitask (for example, watch TV or use your computer) while eating. If it is time to eat, sit down at a table and enjoy your food. This will help you to know when you are full. It will also help you to be aware of what you are eating and how much you are eating. What are tips for following this plan? Reading food labels Check the calorie count compared to the serving size. The serving size may be smaller than what youare used to eating. Check the source of the calories. Make sure the food you are eating is high in vitamins and proteinand low in saturated and trans fats. Shopping Read nutrition labels while you shop. This will help you make healthy decisions before you decide to purchase your food. Make a grocery list and stick to it. Cooking Try to cook your favorite foods in a healthier way. For example, try baking instead of frying. Use low-fat dairy products. Meal planning Use more fruits and vegetables. Half of your plate should be fruits and vegetables. Include lean proteins like poultry and fish. How do I count calories when eating out? Ask for smaller portion sizes. Consider sharing an entree and sides instead of getting your own entree. If you get your own entree, eat only half. Ask for a box at the beginning of your meal and put the rest of your entree in it so you are not tempted to eat it. If calories are listed on the menu, choose the lower calorie options. Choose dishes that include vegetables, fruits, whole grains, low-fat dairy products, and lean protein. Choose items that are boiled, broiled, grilled, or steamed. Stay away from items that are buttered,battered, fried, or served with cream sauce. Items labeled crispy are usually fried, unless stated otherwise. Choose water, low-fat milk, unsweetened iced tea, or other drinks without added sugar. If you want an alcoholic beverage, choose a lower calorie option such as a glass of wine or light beer. Ask for dressings, sauces, and syrups on the side. These are usually high in calories, so you should limit the amount you eat. If you want a salad, choose a garden salad and ask for grilled meats. Avoid extra toppings like carbajal, cheese, or fried items. Ask for the dressing on the side, or ask for olive oil and vinegar or lemon to use as dressing. Estimate how many servings of a food you are given. For example, a serving of cooked rice is cup orabout the size of half a baseball. Knowing serving sizes will help you be aware of how much food you are eating at restaurants. The list below tells you how big or small some common portion sizes arebased on everyday objects: ?1 oz 4 stacked dice. ?3 oz 1 deck of cards. ?1 tsp 1 . ?1 Tbsp a ping-pong ball. ?2 Tbsp 1 ping-pong ball. ? cup baseball. ?1 cup 1 baseball. Summary Calorie counting means keeping track of how many calories you eat and drink each day. If you eat fewer calories than your body needs, you should lose weight. A healthy amount of weight to lose per week is usually 1 2 lb (0.5 0.9 kg). This usually means reducing your daily calorie intake by 500 750 calories. The number of calories in a food can be found on a Nutrition Facts label. If a food does not have aNutrition Facts label, try to look up the calories online or ask your dietitian for help. Use your calories on foods and drinks that will fill you up, and not on foods and drinks that will leave you hungry. Use smaller plates, glasses, and bowls to prevent overeating. This information is not intended to replace advice given to you by your health care provider. Make sure you discuss any questions you have with your health care provider. Document Released: 04/26/2006 Document Revised: 01/13/2019 Document Reviewed: 03/26/2017 S B E Patient Education 2020 [employer]. 08/04/2021 09:24:51 Benign Prostatic Hyperplasia Benign Prostatic Hyperplasia Benign prostatic hyperplasia (BPH) is an enlarged prostate gland that is caused by the normal agingprocess and not by cancer. The prostate is a walnut-sized gland that is involved in the production of semen. It is located in front of the rectum and below the bladder. The bladder stores urine and the urethra is the tube that carries the urine out of the body. The prostate may get bigger as a man gets older. An enlarged prostate can press on the urethra. This can make it harder to pass urine. The build-up of urine in the bladder can cause infection. Back pressure and infection may progress to bladder damage and kidney (renal) failure. What are the causes? This condition is part of a normal aging process. However, not all men develop problems from this condition. If the prostate enlarges away from the urethra, urine flow will not be blocked. If it enlarges toward the urethra and compresses it, there will be problems passing urine. What increases the risk? This condition is more likely to develop in men over the age of 50 years. What are the signs or symptoms? Symptoms of this condition include: Getting up often during the night to urinate. Needing to urinate frequently during the day. Difficulty starting urine flow. Decrease in size and strength of your urine stream. Leaking (dribbling) after urinating. Inability to pass urine. This needs immediate treatment. Inability to completely empty your bladder. Pain when you pass urine. This is more common if there is also an infection. Urinary tract infection (UTI). How is this diagnosed? This condition is diagnosed based on your medical history, a physical exam, and your symptoms. Tests will also be done, such as: A post-void bladder scan. This measures any amount of urine that may remain in your bladder after you finish urinating. A digital rectal exam. In a rectal exam, your health care provider checks your prostate by putting a lubricated, gloved finger into your rectum to feel the back of your prostate gland. This exam detects the size of your gland and any abnormal lumps or growths. An exam of your urine (urinalysis). A prostate specific antigen (PSA) screening. This is a blood test used to screen for prostate cancer. An ultrasound. This test uses sound waves to electronically produce a picture of your prostate gland. Your health care provider may refer you to a specialist in kidney and prostate diseases (urologist). How is this treated? Once symptoms begin, your health care provider will monitor your condition (active surveillance or watchful waiting). Treatment for this condition will depend on the severity of your condition. Treatment may include: Observation and yearly exams. This may be the only treatment needed if your condition and symptoms are mild. Medicines to relieve your symptoms, including: ?Medicines to shrink the prostate. ?Medicines to relax the muscle of the prostate. Surgery in severe cases. Surgery may include: ?Prostatectomy. In this procedure, the prostate tissue is removed completely through an open incision or with a laparoscope or robotics. ?Transurethral resection of the prostate (TURP). In this procedure, a tool is inserted through the opening at the tip of the penis (urethra). It is used to cut away tissue of the inner core of the prostate. The pieces are removed through the same opening of the penis. This removes the blockage. ?Transurethral incision (TUIP). In this procedure, small cuts are made in the prostate. This lessens the prostate's pressure on the urethra. ?Transurethral microwave thermotherapy (TUMT). This procedure uses microwaves to create heat. The heat destroys and removes a small amount of prostate tissue. ?Transurethral needle ablation (TUNA). This procedure uses radio frequencies to destroy and remove a small amount of prostate tissue. ?Interstitial laser coagulation (ILC). This procedure uses a laser to destroy and remove a small amount of prostate tissue. ?Transurethral electrovaporization (TUVP). This procedure uses electrodes to destroy and remove a small amount of prostate tissue. ?Prostatic urethral lift. This procedure inserts an implant to push the lobes of the prostate away from the urethra. Follow these instructions at home: Take zpxc-fac-bycijtn and prescription medicines only as told by your health care provider. Monitor your symptoms for any changes. Contact your health care provider with any changes. Avoid drinking large amounts of liquid before going to bed or out in public. Avoid or reduce how much caffeine or alcohol you drink. Give yourself time when you urinate. Keep all follow-up visits as told by your health care provider. This is important. Contact a health care provider if: You have unexplained back pain. Your symptoms do not get better with treatment. You develop side effects from the medicine you are taking. Your urine becomes very dark or has a bad smell. Your lower abdomen becomes distended and you have trouble passing your urine. Get help right away if: You have a fever or chills. You suddenly cannot urinate. You feel lightheaded, or very dizzy, or you faint. There are large amounts of blood or clots in the urine. Your urinary problems become hard to manage. You develop moderate to severe low back or flank pain. The flank is the side of your body between the ribs and the hip. These symptoms may represent a serious problem that is an emergency. Do not wait to see if the symptoms will go away. Get medical help right away. Call your local emergency services (911 in the [place] Do not drive yourself to the hospital. Summary Benign prostatic hyperplasia (BPH) is an enlarged prostate that is caused by the normal aging process and not by cancer. An enlarged prostate can press on the urethra. This can make it hard to pass urine. This condition is part of a normal aging process and is more likely to develop in men over the age of 50 years. Get help right away if you suddenly cannot urinate. This information is not intended to replace advice given to you by your health care provider. Make sure you discuss any questions you have with your health care provider. Document Released: 04/26/2006 Document Revised: 03/21/2019 Document Reviewed: 05/31/2017 S B E Patient Education 2020 [employer]. Follow Up Care 01/30/2021 10:09:00 With:SAMEER MONTIEL, Demetri Sequeira, URL Address: [facility] [address], [place] [address]- [phone] When: Unknown Comments:Will schedule RT ESWLF/u in 3-4 month due to new medication [facility] 11-23-2021 Evaluation note* Encounter Date Diagnosis Assessment Notes Treatment Notes Treatment Clinical Notes Mar, Dyspnea on exertion (ICD-10 - R06.00) Mar, Leg edema (ICD-10 - R60.0) [facility] Other 10-26-2021 Evaluation note* Encounter Date Diagnosis Assessment Notes Treatment Notes Treatment Clinical Notes Feb, Dyspnea on exertion (ICD-10 - R06.00) Feb, Leg edema (ICD-10 - R60.0) [facility] Other 08-02-2021 NoteHNO ID: [id number] Author: Amara Esqueda MD Service: ? Author Type: Physician Type: Progress Notes Filed: 12/09/2020 11:42 AM Note Text: Tmax 17, 16 Pachy 490, 490 Gonio: Past Ocular Surgical/Laser History OD: PCIOL OS: PCIOL Medication Intolerance/Inefficacy/Barriers Current Medications Latanoprost qHS OU (started ~2017) Referred by Dr. 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 Wishes to continue at this time Follow up 4 - 6 mos. Afternoon. 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 I have seen and examined Lenin Lam. I have discussed the case and the management of this patient's care with the Resident/Fellow, if applicable. I also have reviewed and agree with the assessment and plan as stated above and agree with all of its relevant components. Amara Esqueda MD [facility] Future Appointments Appointment Date:11/07/2021 09:30:00 AM Scheduled Provider:Demetri LEE MD Location:[facility] Appointment Type:URO Office Visit [facility] evaluation + Plan note Future Appointments Appointment Date:08/24/2022 10:30:00 AM Scheduled Provider:Demetri LEE MD Location:[facility] Appointment Type:URO Office Visit [facility] evaluation + Plan note Future Appointments Appointment Date:03/01/2023 09:15:00 AM Scheduled Provider:Demetri LEE MD Location:[facility] Appointment Type:URO Office Visit [facility] evalonkrbg noteNo InformationNort Perfect Other Hisjuye general Narrative - Reported* Type Description Date Medical History ADITHYA Medical History hypertension Medical History heart disease Surgical History bypass triple Surgical History 2 knee replacements Surgical History hiatal hernia Surgical History cataract x 2 Hospitalization History as above [facility] Other History general Narrative - Reported* Type Description Date Medical History ADITHYA Medical History hypertension Medical History heart disease Medical History Hyperlipidemia type II Medical History Lumbar spondylosis Medical History 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 Medical History Gastroesophageal ref lux disease with esophagitis without hemorrhage Medical History Cerebral atherosclerosis Medical History Obstructive sleep apnea Medical History Hypertensive renal disease Medical History Arteriosclerotic heart disease Medical History Fatigue Medical History Bilateral leg edema Medical History Lumbosacral spondylosis with rad iculopathy Medical History Left carotid bruit Medical History Nicotine dependence, cigarettes, in remission Medical History Chronic venous insufficiency Medical History History of malignant melanoma of skin Medical History Dyspnea on exertion Medical History Anemia Medical History Acute bronchitis due to other sp ecified organisms Surgical History bypass triple Surgical History 2 knee replacements Surgical History hiatal hernia Surgical History cataract x 2 Surgical History FRAGMENTING OF KIDNEY STONE Hospitalization History as above [facility] Other Hospital course Narrative No data available for this section [facility] progress note No data available for this section [facility] Summary Purpose Family History No Family History Records FoundNo Family History Records FoundNo Family History Records FoundNo Family History Records FoundNo Family History Records FoundNo Family History Records FoundNo Family History Records FoundNo Family History Records Found Advance Directives No Advanced Directives Records FoundNo Advanced Directives Records FoundNo Advanced Directives Records FoundNo Advanced Directives Records FoundNo Advanced Directives Records FoundNo Advanced Directives Records FoundNo Advanced Directives Records FoundNo Advanced Directives Records Found Reason for Referral Reason Patient being referr ed for low back pain Diagnosis 1 Lumbar spondylosis ( M47.816) Referral Organization [facility] Referring Provider First Name Leo Referring Provider Last Name Dieter Referring Provider Specialty Internal Me dicine Referred Organization [facility] Referred Provider Samantha Contreras Referred Address [address], [place],[address] Referred Provider Specialty Pain Medicin e Referral Priority Routine General Notes Mr. Lam has a ch ronic history of low back pain. This is daily and moderate to severe in intensity. His pain interferes with activity of daily living and sleep. He had injections several years ago without benefit. We discussed treatment options and he is willing to try further treatment. Additional Source Comments (unrecognized sect ion and content) No Status Records FoundNo Status Records FoundNo Status Records FoundNo Status Records FoundNo Status Records FoundNo Status Records FoundNo Status Records FoundNo Status Records Found INFORMATION SOURCE (unrecogn ized section and content) DATE CREATED AUTHOR 07/07/2018 [facility] DATE CREATED AUTHOR AUTHOR'S ORGANIZ ATION 12/09/2020 [facility] DATE CREATED AUTHOR AUTHOR'S ORGANIZ ATION 03/10/2021 [facility] DATE CREATED AUTHOR AUTHOR'S ORGANIZ ATION 03/01/2022 [facility] DATE CREATED AUTHOR AUTHOR'S ORGANIZ ATION 01/29/2023 [facility] DATE CREATED AUTHOR AUTHOR'S ORGANIZ ATION 03/10/2023 [facility] DATE CREATED AUTHOR AUTHOR'S ORGANIZ ATION 05/21/2023 [facility] DATE CREATED AUTHOR AUTHOR'S ORGANIZ ATION 06/18/2023 [facility] REASON FOR VISIT (unrecogniz ed section and content) Ref by Dr. Garcias for Dyspnea on exertion4 wk f/u MONTES, Leg Edema4 MONTH FOLLOW UPNo InformationWELLNESSlab resultsWELLSPALDING [facility]ABIL[facility]ATION [facility]ITALNo Information3 month Follow up Patient Care team informatio n (unrecognized section and content) Personnel Name: LEO GARCIAS DO Address: Address: [address] [place] [address] Personnel Name: LEO GARCIAS DO Address: Address: [address] [place] [address] FOR RECORDS PERTAINING TO PATIENTS WHO ARE OR HAVE BEEN ENROLLED IN A CHEMICAL DEPENDENCY/SUBSTANCEABUSE PROGRAM, SOME INFORMATION MAY BE OMITTED. This clinical summary was aggregated from multiple sources. Caution should be exercised in using it in the provision of clinical care. This summary normalizes information from multiple sources, and as a consequence, information in this document may materially change the coding, format and clinical context of patient data. In addition, data may be omitted in some cases. CLINICAL DECISIONS SHOULD BE BASED ON THE PRIMARY CLINICAL RECORDS. [facility] [employer] [facility]. provides no warranty or guarantee of the accuracy or completeness of information in this document.
--- NOTE | 2023-06-21 12:06 | P.CN_ITS ---
Consult Note: HPI Data of Consult Patient: known to practice within the last 3 years Consult date: 06/21/23 Requesting Physician: Mary Ann Villalobos MD Primary Care Provider: Leo Garcias DO Consult Narrative Reason for consult: low back pain Narrative: 78yom who presents for assessment. continues to have significant low back and bilateral lower extremity pain. has not had much relief with conservative measures. continues to utilize percocet. denies adverse med side effects. cc:: CC: Mary Ann Villalobos MD Review of Systems ROS Status of ROS 10 or more systems reviewed and unremark able except as noted in history and below Meds Home Medications and Allergies Home Medications Medication Instructions Recorded Confirmed Type amlodipine 10 mg-benazepril 20 mg 1 cap PO DAILY 02/08/23 02/08/23 History capsule aspirin 81 mg tablet,delayed 81 mg PO DAILY 02/08/23 02/08/23 History release (Adult Aspirin Regimen) atorvastatin 80 mg tablet 80 mg PO DAILY 02/08/23 02/08/23 History citalopram 20 mg tablet 20 mg PO DAILY 02/08/23 02/08/23 History clopidogrel 75 mg tablet 75 mg PO DAILY 02/08/23 02/08/23 History finasteride 5 mg tablet 5 mg PO DAILY 02/08/23 02/08/23 History furosemide 20 mg tablet 20 mg PO DAILY 02/08/23 02/08/23 History isosorbide mononitrate 60 mg 60 mg PO DAILY 02/08/23 02/08/23 History tablet,extended release 24 hr metoprolol succinate 50 mg 50 mg PO DAILY 02/08/23 02/08/23 History tablet,extended release 24 hr oxybutynin chloride 15 mg 15 mg PO DAILY 02/08/23 02/08/23 History tablet,extended release 24 hr tamsulosin 0.4 mg capsule 0.4 mg PO Q24H 02/08/23 02/08/23 History oxycodone-acetaminophen 5 mg-325 1 tab PO TID 04/08/23 04/08/23 History mg tablet (Percocet) oxycodone-acetaminophen 5 mg-325 1 tab PO TID PRN pain #21 tabs 04/08/23 Rx mg tablet (Percocet) oxycodone-acetaminophen 7.5 mg-325 1 tab PO TID PRN pain #21 tabs 04/15/23 Rx mg tablet (Percocet) oxycodone-acetaminophen 7.5 mg-325 1 tab PO TID PRN pain #90 tabs 04/21/23 Rx mg tablet (Percocet) oxycodone-acetaminophen 7.5 mg-325 1 tab PO TID PRN pain #90 tabs 05/21/23 Rx mg tablet (Percocet) oxycodone-acetaminophen 7.5 mg-325 1 tab PO TID PRN pain #90 tabs 06/10/23 Rx mg tablet (Percocet) Allergies Allergy/AdvReac Type Severity Reaction Status Date / Time No Known Drug Allergies Allergy Verified 02/08/23 13:22 Exam Narrative Exam Narrative: Psych-alert and oriented x 3. Attentive and appropriate, constitutionally normal, displays normal mood and affect per situation.? There are no obvious deficits in memory, reasoning, or intellect.? Skin-no obvious rashes, bruising, erythema noted to the patient's area of pain. Extremities- extremities are warm with minimal edema and palpable pulses. Lumbar-no significant tenderness to palpation noted in the lumbar spine and paraspinal musculature.? Pain is elicited with extension, and lateral rotation of the lumbar spine. Range of motion is slightly diminished with these motions due to pain. Coordination remains intact.? Gait remains non-antalgic. Assessment and Plan Assessment and Plan (1) Lumbar spondylosis: (2) Lumbar stenosis with neurogenic claudication: Plan 78yom who presents for assessment. planning for scs trial in 2 weeks. patient and family had a number of questions, primarily regarding blood thinner and recovery. all questions were answered. will continue with percocet for now, but ultimately hope to be able to discontinue this. he will call with any further questions. tentative plan for trial in two weeks.
== END 2023-06-21 10:56 | disposition home or self-care (01) ==
LOC: PM 10:55
PROVIDERS: PCP Internal Medicine; Visit Provider Anesthesiology
DX: M47.816 Spondylosis without myelopathy or radiculopathy, lumbar region (principal); M48.062 Spinal stenosis, lumbar region with neurogenic claudication
CPT/HCPCS: G0463

== ENCOUNTER 2023-07-05 07:00 | Day surgery (SDC) | payer MEDICARE, OTHER, SELFPAY ==
[2023-07-05 06:57] VITALS: BP 131/1; PULSE 65; RESP 16; TEMP 36.7; O2SAT 94
[2023-07-05] MEDS: 0.9 % SODIUM CHLORIDE 500 ML 50 ML IV (07:39)
[2023-07-05] MEDS: CEFAZOLIN SODIUM 3,000 MG in 0.9 % SODIUM CHLORIDE 100 ML 200 MG IV (07:40)
[2023-07-05] MEDS: LIDOCAINE HCL 2%-EPINEPHRINE 1:100,000 20 ML MDV 3.5 ML INJ (08:27)
[2023-07-05] MEDS: BUPIVACAINE HCL 0.5% PF 50 MG/10 ML VIAL 3.5 ML INJ (08:27)
[2023-07-05 08:30] VITALS: BP 121/83; PULSE 60; RESP 16; TEMP 36.6; O2SAT 97
[2023-07-05 08:37] VITALS: BP 163/79; PULSE 55; RESP 16; O2SAT 96
--- NOTE | 2023-07-05 08:55 | PC.NURSE ---
[employer] reps at bedside making adjustments to stimulator.
--- NOTE | 2023-07-05 09:32 | P.ON_ITS ---
Date of procedure: 07/05/23 Pre-op diagnosis: Lumbar stenosis with neurogenic claudication Post-op diagnosis: same as pre-op Procedure: Procedure Performed by: Mary Ann Villalobos M.D. Procedure: Placement of [employer] 16 contact neuroelectrode trial leads (x two) under fluoroscopic guidance *[employer] at the interspace below L1/2 *Final Lead Placement Level at the top of the vertebral body T7 Anesthesia: Monitored Anesthesia Care is medically necessary for the procedure d ue to the procedure requiring the patient to remain motionless for a prolonged period of time. Procedure: Risks, Benefits, Alternatives were reviewed and informed consent was obtained in the preop holding area. All questions were answered appropriately. The patient was brought to the operating room and placed in the prone position with padding under all bony prominences. A pre-procedure time out was performed specifying pt. name, nature site and side of surgery, and allergies. Anesthesia provided appropriate sedation as the skin over the thoracic and lumbar spine were prepped with duraprep and draped in the usual sterile fashion. Under fluoroscopic guidance, the above noted interspace was identified as the site for epidural needle entry. The skin and subcutaneous tissues were anesthetized approximately 1 level inferior to this point with a mixture of 1% lidocaine and 0.25% bupivacaine. Two 14 gauge tuouy needles were inserted to the superior aspect of the lamina just inferior to the target interspace. Then, using loss of resistance technique as well as fluoroscopic guidance, the epidural space was entered. Two [employer] Trial Stimulator Leads were then advanced under intermittent fluoroscopic guidance until the distal tip of the electrode was observed to be in position at the final position noted above. After appropriate electrode placement was achieved, stimulation was tested intraoperatively with multiple lead configurations until concordant paresthesias were obtained covering the areas of the patients pain. At this point, the needles and stylets were removed carefully and the leads were secured to the skin using steri- strips. The region was covered using a sterile tegaderm bandage. The patient was escorted to the recovery area in stable condition having erik ated the procedure well. Anesthesia: MAC Surgeon: Mary Ann Villalobos Pathology: none sent Condition: stable Disposition: no change
--- OUTSIDE RECORDS SUMMARY | 2023-07-05 10:20 | XMS_ITS | CCD ---
Author Name Unknown Address [address] [place] [address] Organization [facility] Care Team Providers Care Counter Manager Name Role Phone PHYSICIAN, DEFAULT Admitting Unavailable [...] Admitting Unavailable SAMEER, DR FOX Attending Unavailable SAMEER, DR FOX Consulting Unavailable DIETER, DR VAZQUEZ Admitting Unavailable DIETER, DR VAZQUEZ Attending Unavailable DIETER, DR VAZQUEZ Primary Care Unavailable DIETER, DR VAZQUEZ Consulting Unavailable SAMEER, DR FOX Admitting Unavailable SAMEER, DR FOX Attending Unavailable DIETER, DR VAZQUEZ Primary Care Unavailable SAMEER, DR FOX Consulting Unavailable CARLO, DR TANISHA Deleon Consulting Unavailable DIETER, DR VAZQUEZ Admitting Unavailable DIETER, DR VAZQUEZ Attending Unavailable DIETER, DR VAZQUEZ Primary Care Unavailable DIETER, DR VAZQUEZ Consulting Unavailable DIETER, DR VAZQUEZ Admitting Unavailable BALL, DR VAZQUEZ Attending Unavailable BALL, DR VAZQUEZ Primary Care Unavailable BALL, DR VAZQUEZ Consulting Unavailable RADU CHRISTENSEN Consulting Unavailable SAMEER, DR FOX Admitting Unavailable SAMEER, DR FOX Attending Unavailable DIETER, DR VAZQUEZ Primary Care Unavailable LEE, DR FOX Consulting Unavailable SAMEER, DR FOX Admitting Unavailable SAMEER, DR FOX Attending Unavailable BALL, DR VAZQUEZ Primary Care Unavailable SAMEER, DR FOX Consulting Unavailable CANDICE MENDENHALL Consulting Unavailable AFSHAN GTZ Consulting Unavaila ble SAMEER, DR FOX Admitting Unavailable SAMEER, DR FOX Attending Unavailable DIETER, DR VAZQUEZ Primary Care Unavailable Dieter, Leo Unavailable SHALONDA RAI Attending Unavailable CLAUDETTE RICHARDSON Attending Unavailable SAMEER, Demetri Sequeira Attending Unavailable Demetri LEE Attending Unavailable Wilfredo MONTIEL, Mary Ann Chacko Attending Unavailable Wilfredo MONTIEL, Mary Ann Chacko Attending Unavailable Wilfredo MONTIEL, Mary Ann Chacko Attending Unavailable Allergies Allergy Classification Reported Allergen(s) Allergy Type Date of Onset Reaction(s) Facility (1 source) 23752,00; Translations: [17989,00] Propensity to adverse reactions (disorder) 9 [facility] Repository (2 sources) patient allergy list reviewed by nurse or physicia Propensity to adverse reactions 9 Comment:Done FIGS Other (1 source) No Known Medication Allergies; Translations: [No Known Medication Allergies] Propensity to adverse reactions (disorder) [facility] Repository Medications Current Medications Medication Drug Class(es) [...] Daily, # 30 tab(s), Refills(s) 11, Pharmacy: [facility]/pharmacy #[id number], 164, cm, 08/04/21 8:56:00 EDT, Height/Length Dosing, 139, kg, 08/04/21 8:56:00 EDT, Weight Dosing Start Date: 08/04/21 Status: Ordered tamsulosin hydrochloride 0.4 mg oral capsule (12 sources) alpha-Adrenergic Remy Start: 06-26-2022 take 1 capsule by mouth twice daily tamsulosin 0.4 mg Cap 0.4 mg = 1 cap(s), Oral, BID, # 180 cap(s), Refills(s) 3, Pharmacy: [facility]/pharmacy #[id number], 164, cm, 02/23/22 11:10:00 EDT, Height/Length Dosing, 139, kg, 02/23/22 11:10:00 EDT, Weight Dosing Start Date: 06/26/22 Status: Ordered Start: 02-23-2022 End: 06-23-2022 take 1 capsule by mouth twice daily tamsulosin 0.4 mg Cap 0.4 mg = 1 cap(s), Oral, BID, X 30 day(s), # 60 cap(s), Refills(s) 3, Pharmacy: [facility]/pharmacy #[id number], 164, cm, 02/23/22 11:10:00 EDT, Height/Length Dosing, 139, kg, 02/23/22 11:10:00 EDT, Weight Dosing Start Date: 02/23/22 Stop Date: 06/23/22 Status: Ordered Start: 11-22-2020 End: 11-17-2021 take 1 capsule by mouth twice daily Flomax 0.4 mg Cap 0.4 mg = 1 cap(s), Oral, BID, X 90 day(s), # 180 cap(s), Refills(s) 3, Pharmacy: [facility]/pharmacy #[id number], 164, cm, 07/26/20 9:40:00 EDT, Height/Length Dosing, 138.5, kg, 07/26/20 9:40:00 EDT, Weight Dosing Start Date: 11/22/20 Stop Date: 11/17/21 Status: Ordered take [address] 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] Episodic Other and ill-defined [...] Resolved: 01-08-2021 Episodic Other aftercare (1 source) halfway (current) use of anticoagulants; Translations: [[facility]I CURRNT USE ANTICOAGULANTS] Onset: 08-29-2021 Episodic Other aftercare (1 source) 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/ant 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; Translations: [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/ANTIPL ATLETS] Onset: 08-25-2021 Episodic Other and [...] Range Facility Office Visiton 01-27-2023 Follow-up visit [id number] Ralph Lam 1945 M Date Provider Department Center 01/27/2023 [id number], EHAB BH CARD [place] [facility] No family history on file Level of Service:10045 IN OFFICE/OUTPATIENT ESTABLISHED MOD MDM 30-39 MIN [facility] Ambulatory Visit Summaryon 0 08-24-2022 Ambulatory Visit Summary LENIN LAM :1945 Visit Date:08/24/2022 Ambulatory Visit Instructions Your Diagnosis BPH with urinary obstruction Urinary urgency Incontinence without sensory awareness History of kidney stones Tests Performed Urnls Dip Stick Auto w/o Microscopy POC 95740 XR Abdomen 1 View -- Results Pending [...] Demetri LEE MD Where: [facility] [place] Normal [facility] Patient Educationon 08-25-19 Patient Education Urology Benign [...] Follow these instructions at home: ? Take sihh-lrf-rugkqac and prescription medicines only as told by [...] You d (more content not included)... Normal [facility] Urology Office/Clinic Noteon 08-24-2022 Urology [...] When Contact Information SAMEER MONTIEL, Demetri Sequeira, COUNT INCLUDES THE [facility] [address], [place] [address]- Additional Instructions: 6 mos with KUB Patient Education Benign Prostatic Hyperplasia IAllison, personally scribed for Dr. Lee on 08/24/2022 [...] SARS-CoV-2 (COVID-1 (more content not included)... Normal [facility] Comment on above: Result Comment: Elec tronically Signed By: SAMEER MONTIEL, Demetri Sequeira\.br\Date and Time Signed: 08/24/22 11:21 EDT\.br\Electronically Co-Signed By: Allison Dotson\.br\Date and Time Co-Signed: 08/24/22 11:20 EDT 36on 07-07-2022 36 Notes: Rx refused. N ot seen since December 2020. Normal [facility] BNPon 02-17-2022 Natriuretic peptide B (Bld) [Mass/Vol] 330.0 pg/mL Normal <=1,800.0 [facility] Comment on above: Performed By: #### B MANAGER OF CORPORATE, TSH, BMP #### [facility] [address] [address] [address] Temo Mckeon CBC AUTO DIFFon 02-17-2022 BASO # 0.1 103/ul Normal 0.0-0.1 [facility] Comment on above: Performed By: #### C BC #### [facility] [address] [address] [address] Temo Mckeon Basophils/100 WBC (Bld) 0.4 % Normal 0.2-2.0 [facility] Comment on above: Performed By: #### C BC #### [facility] [address] [place] [address] Dr. Temo Mckeon EO # 0.3 103/ul Normal 0.0-0.7 [facility] Comment on above: Performed By: #### C BC #### [facility] [address] [place] [address] Dr. Temo Mckeon Eosinophils/100 WBC (Bld) 2.8 % Normal 0.9-7.0 [facility] Comment on above: Performed By: #### C BC #### [facility] [address] [place] [address] Dr. Temo Mckeon Erythrocyte distribution width (RBC) [Ratio] 13.5 % Normal 11.0-15.0 [facility] Comment on above: Performed By: #### C BC #### [facility] [address] [place] [address] Dr. Temo Mckeon Hematocrit (Bld) [Volume fraction] 38.5 % Critically low 42.0-54.0 [facility] Comment on above: Performed By: #### C BC #### [facility] [address] [place] [address] Dr. Temo Mckeon Hemoglobin (Bld) [Mass/Vol] 12.5 g/dL Critically low 14.0-18.0 [facility] Comment on above: Performed By: #### C BC #### [facility] [address] [place] [address] Dr. Temo Mckeon IG # 0.11 10e3/ul Critically high 0.00-0.03 [facility] Comment on above: Performed By: #### C BC #### [facility] [address] [place] [address] Dr. Temo Mckeon IG % 0.9 % Critically high 0.0-0.5 [facility] Comment on above: Performed By: #### C BC #### [facility] [address] [place] [address] Dr. Temo Mckeon LYMPH # 2.1 103/ul Normal 1.2-3.8 [facility] Comment on above: Performed By: #### C BC #### [facility] [address] [place] [address] Dr. Temo Mckeon Lymphocytes/100 WBC (Bld) 17.5 % Critically low 20.5-60.0 [facility] Comment on above: Performed By: #### C BC #### [facility] [address] [place] [address] Dr. Temo Mckeon MANUAL DIFF REQ NO Normal [facility] Comment on above: Performed By: #### C BC #### [facility] [address] [place] [address] Dr. Temo Mckeon MCH (RBC) [Entitic mass] 30.6 pg Normal 25.9-34.0 [facility] Comment on above: Performed By: #### C BC #### [facility] [address] [place] [address] Dr. Temo Mckeon MCHC (RBC) [Mass/Vol] 32.5 g/dL Normal 29.9-35.2 [facility] Comment on above: Performed By: #### C BC #### [facility] [address] [place] [address] Dr. Temo Mckeon MCV (RBC) [Entitic vol] 94.1 fL Critically high 80.0-94.0 [facility] Comment on above: Performed By: #### C BC #### [facility] [address] [place] [address] Dr. Temo Mckeon MONO # 0.9 103/ul Critically high 0.3-0.8 [facility] Comment on above: Performed By: #### C BC #### [facility] [address] [place] [address] Dr. Temo Mckeon Monocytes/100 WBC (Bld) 7.9 % Normal 1.7-12.0 [facility] Comment on above: Performed By: #### C BC #### [facility] [address] [place] [address] Dr. Temo Mckeon NEUT # 8.4 103/ul Critically high 1.4-6.5 [facility] Comment on above: Performed By: #### C BC #### [facility] [address] [place] [address] Dr. Temo Mckeon Neutrophils/100 WBC (Bld) 70.5 % Normal 43.0-75.0 [facility] Comment on above: Performed By: #### C BC #### [facility] [address] [address] [address] Temo Mckeon Platelet mean volume (Bld) [Entitic vol] 10.5 fL Normal 9.5-13.5 [facility] Comment on above: Performed By: #### C BC #### [facility] [address] [place] [address] Dr. Temo Mckeon PLT 172 103/ul Normal 150-450 [facility] Comment on above: Performed By: #### C BC #### [facility] [address] [place] [address] Dr. Temo Mckeon RBC 4.09 106/ul Critically low 4.70-6.10 [facility] Comment on above: Performed By: #### C BC #### [facility] [address] [place] [address] Dr. Temo Mckeon WBC 11.9 103/ul Critically high 4.0-11.0 [facility] Comment on above: Performed By: #### C BC #### [facility] [address] [place] [address] Dr. Temo Mckeon PROF CHEM 8 (BAS METB)on Anion gap [Moles/Vol] 14.2 mmol/L Normal [facility] Comment on above: Performed By: #### B MANAGER OF CORPORATE, TSH, BMP #### [facility] [address] [place] [address] Dr. Temo Mckeon Calcium [Mass/Vol] 9.1 mg/dL Normal 8.5-10.1 [facility] Comment on above: Performed By: #### B MANAGER OF CORPORATE, TSH, BMP #### [facility] [address] [place] [address] Dr. Temo Mckeon Chloride [Moles/Vol] 105 mmol/L Normal 98-107 [facility] Comment on above: Performed By: #### B MANAGER OF CORPORATE, TSH, BMP #### [facility] [address] [address] [address] Temo Mckeon CO2 [Moles/Vol] 25.3 mmol/L Normal 21.0-32.0 [facility] Comment on above: Performed By: #### B MANAGER OF CORPORATE, TSH, BMP #### [facility] [address] [place] [address] Dr. Temo Mckeon Creatinine [Mass/Vol] 1.72 mg/dL Critically high 0.70-1.30 [facility] Comment on above: Performed By: #### B MANAGER OF CORPORATE, TSH, BMP #### [facility] [address] [place] [address] Dr. Temo Mckeon EGFR-AF MONGOLIAN 47 mL/min/1.73m2 Critically low >=60 [facility] Comment on above: Performed By: #### B MANAGER OF CORPORATE, TSH, BMP #### [facility] [address] [place] [address] Dr. Temo Mckeon EGFR-NON AF MONGOLIAN 39 mL/min/1.73m2 Critically low >=60 [facility] Comment on above: Performed By: #### B MANAGER OF CORPORATE, TSH, BMP #### [facility] [address] [place] [address] Dr. Temo Mckeon Glucose [Mass/Vol] 134 mg/dL Critically high 74-[address] [facility] Comment on above: Performed By: #### B MANAGER OF CORPORATE, TSH, BMP #### [facility] [address] [place] [address] Dr. Temo Mckeon Potassium [Moles/Vol] 4.5 mmol/L Normal 3.5-5.1 [facility] Comment on above: Performed By: #### B MANAGER OF CORPORATE, TSH, BMP #### [facility] [address] [place] [address] Dr. Temo Mckeon Sodium [Moles/Vol] 140 mmol/L Normal 136-145 [facility] Comment on above: Performed By: #### B MANAGER OF CORPORATE, TSH, BMP #### [facility] [address] [place], [place] [address] Dr. Temo Mckeon Urea nitrogen [Mass/Vol] 36.0 mg/dL Critically high 7.0-18.0 [facility] Comment on above: Performed By: #### B MANAGER OF CORPORATE, TSH, BMP #### [facility] [address] [address] [address] Temo Mckeon Urea nitrogen/Creatinine [Mass ratio] 20.9 mg/mg Normal [facility] Comment on above: Performed By: #### B MANAGER OF CORPORATE, TSH, BMP #### [facility] [address] [address] [address] Temo Mckeon TSHon 02-17-2022 TSH 1.708 uIU/mL Normal 0.358-3.740 [facility] Comment on above: Performed By: #### B MANAGER OF CORPORATE, TSH, BMP #### [facility] [address] [address] [address] Temo Mckeon XR KUB 1 VIEWon [...] by: RADU CHRISTENSEN Date: 2022-02-17 11:43 Normal [facility] METHYLMALONIC ACID (MMA)on 0 11-01-2021 Methylmalonic Acid, Serum 205 nmol/L Normal 0-378 [facility] Comment on above: Performed By: #### C BC #### [facility] [address] [address] [address] Temo Mckeon FOLATE ([facility])on Folate >20.0 Normal >3.0 [facility] Comment on above: Result Comment: A se rum folate concentration of less than 3.1 ng/mL is considered to represent clinical deficiency. Performed By: #### B MP, ALT, LIPID #### [facility] [address] [place] [address] Dr. Temo Mckeon CBC AUTO DIFFon 10-29-2021 BASO # 0.1 103/ul Normal 0.0-0.1 [facility] Comment on above: Performed By: #### C BC #### [facility] [address] [place] [address] Dr. Temo Mckeon Basophils/100 WBC (Bld) 0.5 % Normal 0.2-2.0 [facility] Comment on above: Performed By: #### C BC #### [facility] [address] [place] [address] Dr. Temo Mckeon EO # 0.3 103/ul Normal 0.0-0.7 [facility] Comment on above: Performed By: #### C BC #### [facility] [address] [place] [address] Dr. Temo Mckeon Eosinophils/100 WBC (Bld) 3.3 % Normal 0.9-7.0 [facility] Comment on above: Performed By: #### C BC #### [facility] [address] [place] [address] Dr. Temo Mckeon Erythrocyte distribution width (RBC) [Ratio] 13.3 % Normal 11.0-15.0 [facility] Comment on above: Performed By: #### C BC #### [facility] [address] [place] [address] Dr. Temo Mckeon Hematocrit (Bld) [Volume fraction] 40.4 % Critically low 42.0-54.0 [facility] Comment on above: Performed By: #### C BC #### [facility] [address] [address] [address] Temo Mckeon Hemoglobin (Bld) [Mass/Vol] 13.4 g/dL Critically low 14.0-18.0 [facility] Comment on above: Performed By: #### C BC #### [facility] [address] [address] [address] Temo Mckeon IG # 0.06 10e3/ul Critically high 0.00-0.03 [facility] Comment on above: Performed By: #### C BC #### [facility] [address] [address] [address] Temo Mckeon IG % 0.6 % Critically high 0.0-0.5 [facility] Comment on above: Performed By: #### C BC #### [facility] [address] [place] [address] Dr. Temo Mckeon LYMPH # 2.2 103/ul Normal 1.2-3.8 [facility] Comment on above: Performed By: #### C BC #### [facility] [address] [place] [address] Dr. Temo Mckeon Lymphocytes/100 WBC (Bld) 22.6 % Normal 20.5-60.0 [facility] Comment on above: Performed By: #### C BC #### [facility] [address] [place] [address] Dr. Temo Mckeon MANUAL DIFF REQ NO Normal [facility] Comment on above: Performed By: #### C BC #### [facility] [address] [place] [address] Dr. Temo Mckeon MCH (RBC) [Entitic mass] 30.8 pg Normal 25.9-34.0 [facility] Comment on above: Performed By: #### C BC #### [facility] [address] [place] [address] Dr. Temo Mckeon MCHC (RBC) [Mass/Vol] 33.2 g/dL Normal 29.9-35.2 [facility] Comment on above: Performed By: #### C BC #### [facility] [address] [place] [address] Dr. Teom Mckeon MCV (RBC) [Entitic vol] 92.9 fL Normal 80.0-94.0 [facility] Comment on above: Performed By: #### C BC #### [facility] [address] [place] [address] Dr. Temo Mckeon MONO # 0.7 103/ul Normal 0.3-0.8 [facility] Comment on above: Performed By: #### C BC #### [facility] [address] [place] [address] Dr. Temo Mckeon Monocytes/100 WBC (Bld) 7.6 % Normal 1.7-12.0 [facility] Comment on above: Performed By: #### C BC #### [facility] [address] [place] [address] Dr. Temo Mckeon NEUT # 6.2 103/ul Normal 1.4-6.5 [facility] Comment on above: Performed By: #### C BC #### [facility] [address] [place] [address] Dr. Temo Mckeon Neutrophils/100 WBC (Bld) 65.4 % Normal 43.0-75.0 [facility] Comment on above: Performed By: #### C BC #### [facility] [address] [place] [address] Dr. Temo Mckeon Platelet mean volume (Bld) [Entitic vol] 10.5 fL Normal 9.5-13.5 [facility] Comment on above: Performed By: #### C BC #### [facility] [address] [place] [address] Dr. Temo Mckeon PLT 169 103/ul Normal 150-450 [facility] Comment on above: Performed By: #### C BC #### [facility] [address] [place], [place] [id number] Dr. Temo Mckeon RBC 4.35 106/ul Critically low 4.70-6.10 [facility] Comment on above: Performed By: #### C BC #### [facility] [address] [place] [address] Dr. Temo Mckeon WBC 9.5 103/ul Normal 4.0-11.0 [facility] Comment on above: Performed By: #### C BC #### [facility] [address] [address] [address] Temo Mckeon FERRITINon 10-29-2021 Ferritin [Mass/Vol] 423.0 ng/mL Critically high 26.0-388.0 [facility] Comment on above: Performed By: #### C BC #### [facility] [address] [address] [address] Temo Mckeon IRON AND TIBCon 10-29-2021 % SATURATION 25.6 % Normal [facility] Comment on above: Performed By: #### C BC #### [facility] [address] [place] [address] Dr. Temo Mckeon Iron [Mass/Vol] 79.0 ug/dL Normal 65.0-175.0 [facility] Comment on above: Performed By: #### C BC #### [facility] [address] [place] [address] Dr. Temo Mckeon TIBC DIRECT 308.0 ug/dL Normal 250.0-450.0 [facility] Comment on above: Performed By: #### C BC #### [facility] [address] [place] [address] Dr. Temo Mckeon LIPID PROFILEon 10-29-2021 CHOL-HDL RATIO NORM SEE BELOW Normal [facility] Comment on above: Result Comment: 3.3 - 4.4 LOW RISK 4.4 - 7.1 AVERAGE RISK 7.1 - 11.0 MODERATE RISK >11.0 HIGH RISK Performed By: #### B MP, ALT, LIPID #### [facility] [address] [address] [address] Temo Mckeon Cholesterol [Mass/Vol] 93 mg/dL Normal <=200 [facility] Comment on above: Performed By: #### B MP, ALT, LIPID #### [facility] [address] [place] [address] Dr. Temo Mckeon Cholesterol in HDL [Mass/Vol] 40 mg/dL Normal 40-60 [facility] Comment on above: Performed By: #### B MP, ALT, LIPID #### [facility] [address] [address] [address] Temo Mckeon Cholesterol in LDL [Mass/Vol] 35.4 mg/dL Normal [facility] Comment on above: Performed By: #### B MP, ALT, LIPID #### [facility] [address] [address] [address] Temo Mckeno Cholesterol.total/C holesterol in HDL [Mass ratio] 2.3 {ratio} [facility] [facility] Comment on above: Performed By: #### B MP, ALT, LIPID #### [facility] [address] [address] [address] Temo Mckeon HDL NORMAL > or = 60 mg/dl - LO W CARDIOVASCULAR RISK <40 mg/dl - HIGH CARDIOVASCULAR RISK Normal [facility] Comment on above: Performed By: #### B MP, ALT, LIPID #### [facility] [address] [address] [address] Temo Mckeon LDL CALC NORMAL SEE BELOW Normal [facility] Comment on above: Result Comment: <100 mg/dl OPTIMAL 100 - 129 mg/dl NEAR OR ABOVE OPTIMAL 130 - 159 mg/dl BORDERLINE HIGH 160 - 189 mg/dl HIGH >190 mg/dl VERY HIGH Performed By: #### B MP, ALT, LIPID #### [facility] [address] [address] [address] Temo Mckeon Triglyceride [Mass/Vol] 88 mg/dL Normal <=150 [facility] Comment on above: Performed By: #### B MP, ALT, LIPID #### [facility] [address] [address] [address] Temo Mckeon VLDL CALC 17.6 mg/dL Normal [facility] Comment on above: Performed By: #### B MP, ALT, LIPID #### [facility] [address] [place] [address] Dr. Temo Mckeon PROF CHEM 8 (BAS METB)on Anion gap [Moles/Vol] 14.6 mmol/L Normal [facility] Comment on above: Performed By: #### B MP, ALT, LIPID #### [facility] [address] [address] [address] Temo Mckeon Calcium [Mass/Vol] 8.8 mg/dL Normal 8.5-10.1 [facility] Comment on above: Performed By: #### B MP, ALT, LIPID #### [facility] [address] [address] [address] Temo Mckeon Chloride [Moles/Vol] 106 mmol/L Normal 98-107 [facility] Comment on above: Performed By: #### B MP, ALT, LIPID #### [facility] [address] [address] [address] Temo Mckeon CO2 [Moles/Vol] 23.8 mmol/L Normal 21.0-32.0 [facility] Comment on above: Performed By: #### B MP, ALT, LIPID #### [facility] [address] [place] [address] Dr. Temo Mckeon Creatinine [Mass/Vol] 1.57 mg/dL Critically high 0.70-1.30 [facility] Comment on above: Performed By: #### B MP, ALT, LIPID #### [facility] [address] [place] [address] Dr. Temo Mckeon EGFR-AF MONGOLIAN 52 mL/min/1.73m2 Critically low >=60 [facility] Comment on above: Performed By: #### B MP, ALT, LIPID #### [facility] [address] [place] [address] Dr. Temo Mckeon EGFR-NON AF MONGOLIAN 43 mL/min/1.73m2 Critically low >=60 [facility] Comment on above: Performed By: #### B MP, ALT, LIPID #### [facility] [address] [place] [address] Dr. Temo Mckeon Glucose [Mass/Vol] 148 mg/dL Critically high 74-[address] [facility] Comment on above: Performed By: #### B MP, ALT, LIPID #### [facility] [address] [address] [address] Temo Mckeon Potassium [Moles/Vol] 4.4 mmol/L Normal 3.5-5.1 [facility] Comment on above: Performed By: #### B MP, ALT, LIPID #### [facility] [address] [place] [address] Dr. Temo Mckeon Sodium [Moles/Vol] 140 mmol/L Normal 136-145 [facility] Comment on above: Performed By: #### B MP, ALT, LIPID #### [facility] [address] [place] [address] Dr. Temo Mckeon Urea nitrogen [Mass/Vol] 31.0 mg/dL Critically high 7.0-18.0 [facility] Comment on above: Performed By: #### B MP, ALT, LIPID #### [facility] [address] [place] [address] Dr. Temo Mckeon Urea nitrogen/Creatinine [Mass ratio] 19.7 mg/mg Normal [facility] Comment on above: Performed By: #### B MP, ALT, LIPID #### [facility] [address] [place] [address] Dr. Temo Mckeon SGPTon 10-29-2021 ALT [Catalytic activity/Vol] 39 U/L Normal 16-63 [facility] Comment on above: Performed By: #### B MP, ALT, LIPID #### [facility] [address] [place] [address] Dr. Temo Mckeon VITAMIN B12on 10-29-2021 Cobalamin (Vitamin B12) [Mass/Vol] 675.0 pg/mL Normal 193.0-986.0 [facility] Comment on above: Performed By: #### C BC #### [facility] [address] [place] [address] Dr. Temo Mckeon XR KUB 1 VIEWon [...] MARTA HALE Date: 2021-08-29 19:34 Normal [facility] CBC AUTO DIFFon 08-21-2021 BASO # 0.0 103/ul Normal 0.0-0.1 [facility] Comment on above: Performed By: #### C BC #### [facility] [address] [place] [address] Dr. Temo Mckeon Basophils/100 WBC (Bld) 0.3 % Normal 0.2-2.0 [facility] Comment on above: Performed By: #### C BC #### [facility] [address] [place] [address] Dr. Temo Mckeon EO # 0.3 103/ul Normal 0.0-0.7 [facility] Comment on above: Performed By: #### C BC #### [facility] [address] [place] [address] Dr. Temo Mckeon Eosinophils/100 WBC (Bld) 3.2 % Normal 0.9-7.0 [facility] Comment on above: Performed By: #### C BC #### [facility] [address] [place] [address] Dr. Temo Mckeon Erythrocyte distribution width (RBC) [Ratio] 13.5 % Normal 11.0-15.0 [facility] Comment on above: Performed By: #### C BC #### [facility] [address] [place] [address] Dr. Temo Mckeon Hematocrit (Bld) [Volume fraction] 38.8 % Critically low 42.0-54.0 [facility] Comment on above: Performed By: #### C BC #### [facility] [address] [place] [address] Dr. Temo Mckeon Hemoglobin (Bld) [Mass/Vol] 12.8 g/dL Critically low 14.0-18.0 [facility] Comment on above: Performed By: #### C BC #### [facility] [address] [place] [address] Dr. Temo Mckeon IG # 0.05 10e3/ul Critically high 0.00-0.03 [facility] Comment on above: Performed By: #### C BC #### [facility] [address] [place] [address] Dr. Temo Mckeon IG % 0.5 % Normal 0.0-0.5 [facility] Comment on above: Performed By: #### C BC #### [facility] [address] [place] [address] Dr. Temo Mckeon LYMPH # 1.8 103/ul Normal 1.2-3.8 [facility] Comment on above: Performed By: #### C BC #### [facility] [address] [place] [address] Dr. Temo Mckeon Lymphocytes/100 WBC (Bld) 19.6 % Critically low 20.5-60.0 [facility] Comment on above: Performed By: #### C BC #### [facility] [address] [place] [address] Dr. Temo Mckeon MANUAL DIFF REQ NO Normal [facility] Comment on above: Performed By: #### C BC #### [facility] [address] [place] [address] Dr. Temo Mckeon MCH (RBC) [Entitic mass] 31.1 pg Normal 25.9-34.0 [facility] Comment on above: Performed By: #### C BC #### [facility] [address] [place] [address] Dr. Temo Mckeon MCHC (RBC) [Mass/Vol] 33.0 g/dL Normal 29.9-35.2 [facility] Comment on above: Performed By: #### C BC #### [facility] [address] [place] [address] Dr. Temo Mckeon MCV (RBC) [Entitic vol] 94.4 fL Critically high 80.0-94.0 [facility] Comment on above: Performed By: #### C BC #### [facility] [address] [place] [address] Dr. Temo Mckeon MONO # 0.7 103/ul Normal 0.3-0.8 [facility] Comment on above: Performed By: #### C BC #### [facility] [address] [place] [address] Dr. Temo Mckeon Monocytes/100 WBC (Bld) 7.5 % Normal 1.7-12.0 [facility] Comment on above: Performed By: #### C BC #### [facility] [address] [place] [address] Dr. Temo Mckeon NEUT # 6.4 103/ul Normal 1.4-6.5 [facility] Comment on above: Performed By: #### C BC #### [facility] [address] [place] [address] Dr. Temo Mckeon Neutrophils/100 WBC (Bld) 68.9 % Normal 43.0-75.0 [facility] Comment on above: Performed By: #### C BC #### [facility] [address] [place] [address] Dr. Temo Mckeon Platelet mean volume (Bld) [Entitic vol] 10.2 fL Normal 9.5-13.5 [facility] Comment on above: Performed By: #### C BC #### [facility] [address] [place] [address] Dr. Temo Mckeon PLT 160 103/ul Normal 150-450 [facility] Comment on above: Performed By: #### C BC #### [facility] [address] [place] [address] Dr. Temo Mckeon RBC 4.11 106/ul Critically low 4.70-6.10 [facility] Comment on above: Performed By: #### C BC #### [facility] [address] [place] [address] Dr. Temo Mckeon WBC 9.3 103/ul Normal 4.0-11.0 [facility] Comment on above: Performed By: #### C BC #### [facility] [address] [place] [address] Dr. Temo Mckeon Covid-19 PCR ([facility])on 08-08 SARS-CoV-2 (COVID-19) RNA PRADEEP+probe Ql (Unsp spec) Not detected Normal NOT DETECTED [facility] Comment on above: Result Comment: This test is not yet approved or cleared by the [place] FDA. When there are no FDA-approved or cleared tests available, and other criteria are met, FDA can make tests available under an emergency access mechanism called an Emergency Use Authorization (EUA). The EUA for this test is supported by the Library Media Technician of Health and Human Service's (HHS's) declaration [...] SARS-CoV-2. Performed By: #### C BC #### [facility] [address] [place] [address] Dr. Temo Mckeon PROF CHEM 8 (BAS METB)on Anion gap [Moles/Vol] 12.4 mmol/L Normal [facility] Comment on above: Performed By: #### C BC #### [facility] [address] [place] [address] Dr. Temo Mckeon Calcium [Mass/Vol] 8.6 mg/dL Normal 8.5-10.1 [facility] Comment on above: Performed By: #### C BC #### [facility] [address] [place] [address] Dr. Temo Mkceon Chloride [Moles/Vol] 105 mmol/L Normal 98-107 [facility] Comment on above: Performed By: #### C BC #### [facility] [address] [place] [address] Dr. Temo Mckeon CO2 [Moles/Vol] 27.0 mmol/L Normal 22.0-30.0 [facility] Comment on above: Performed By: #### C BC #### [facility] [address] [id number] Temo Mckeon Creatinine [Mass/Vol] 1.57 mg/dL Critically high 0.66-1.25 [facility] Comment on above: Performed By: #### C BC #### [facility] [address] [id number] Temo Mckeon EGFR-AF MONGOLIAN 52 mL/min/1.73m2 Critically low >=60 [facility] Comment on above: Performed By: #### C BC #### [facility] [address] [id number] Temo Mckeon EGFR-NON AF MONGOLIAN 43 mL/min/1.73m2 Critically low >=60 [facility] Comment on above: Performed By: #### C BC #### [facility] [address] [address] [address] Temo Mckeon Glucose [Mass/Vol] 145 mg/dL Critically high 74-106 [facility] Comment on above: Performed By: #### C BC #### [facility] [address] [address] [address] Temo Mckeon Potassium [Moles/Vol] 4.4 mmol/L Normal 3.4-5.0 [facility] Comment on above: Performed By: #### C BC #### [facility] [address] [id number] Temo Mckeon Sodium [Moles/Vol] 140 mmol/L Normal 137-145 [facility] Comment on above: Performed By: #### C BC #### [facility] [address] [id number] Temo Mckeon Urea nitrogen [Mass/Vol] 32.0 mg/dL Critically high 7.0-18.0 [facility] Comment on above: Performed By: #### C BC #### [facility] [address] [id number] Temo Mckeon Urea nitrogen/Creatinine [Mass ratio] 20.4 mg/mg Normal [facility] Comment on above: Performed By: #### C BC #### [facility] [address] [place] [address] Dr. Temo Mckeon PROTIMEon 08-21-2021 INR Coag (PPP) [Relative time] 1.04 {INR} Normal [facility] Comment on above: Performed By: #### C BC #### [facility] [address] [place] [address] Dr. Temo Mckeon INR GUIDELINES SEE BELOW Normal [facility] Comment on above: Result Comment: APPLE RED INR: 2.0 - 3.0 CONDITIONS NOT LISTED BELOW 2.5 - 3.5 FOR PROSTHETIC HEART VALVE REPLACEMENT 2.5 - 3.5 RECURRENT THROMBOSIS Performed By: #### C BC #### [facility] [address] [place] [address] Dr. Temo Mckeon PT Coag (PPP) [Time] 11.2 s Normal 9.0-11.6 [facility] Comment on above: Performed By: #### C BC #### [facility] [address] [place] [address] Dr. Temo Mckeon PTTon 08-21-2021 aPTT Coag (Bld) [Time] 25.2 s Normal 22.3-36.2 [facility] Comment on above: Performed By: #### C BC #### [facility] [address] [place] [address] Dr. Temo Mckeon XR KUB 1 VIEWon [...] TANISHA MATOS Date: 2021-07-29 09:21 Normal [facility] Covid-19 PCR ([facility])on 04-10 SARS-CoV-2 (COVID-19) RNA PRADEEP+probe Ql (Unsp spec) Not detected Normal NOT DETECTED [facility] Comment on above: Result Comment: This test is not yet approved or cleared by the [place] FDA. When there are no FDA-approved or cleared tests available, and other criteria are met, FDA can make tests available under an emergency access mechanism called an Emergency Use Authorization (EUA). The EUA for this test is supported by the Library Media Technician of Health and Human Service's (HHS's) declaration [...] SARS-CoV-2. Performed By: #### C [facility] #### [facility] [address] [place] [address] angio chest PE protocolon 03-07-2021 CT angio chest PE protocol [facility] Main [place] [address] [place] [address] CT Scan Report Signed Patient: Lenin Lam MR#: [id number] 71 : 1945 Acct:[id number] Age/Sex: 75 / M ADM Date: 03/07/21 Loc: CT Room: Type: [facility] Attending Dr: Erika Bender MD Ordering Provider: [...] Balwinder Zambrano M.D.03/07/2021 2:01 PM Dictation Location: [place] [address] Transcribed By: [facility] 03/07/21 1401 Dictated By: Balwinder Zambrano DO 03/07/21 1359 Signed By: 03/07/21 1401 [facility] echo transthoracicon [facility] echo transthoracic [facility] [place] [address] Echocardiogram Signed Patient: Lenin Lam MR#: [id number] 71 : 1945 Acct:[id number] Age/Sex: 75 / M ADM Date: 03/07/21 Loc: CT Room: Type: [facility] Attending Dr: Erika Bender MD Ordering Provider: Erika Bender MD Date of Service: 03/07/21 [facility] echo transthoracic: DYSPNEA Copies to: [facility]: 2.3 m2 BP: 174/95 mmHg HR: [...] DO 03/07/21 1351 Signed By: 03/07/21 1449 [facility] ISTAT XRay CREon 03-07-2021 Creatinine [Mass/Vol] 1.5 mg/dL High 0.6-1.3 [facility] Comment on above: Result Comment: ER/E SD physician is notified/shown all ISTAT results. Critical values may be confirmed by laboratory testing if deemed necessary by ER attending doctor. Performed By: #### I SCRE #### [address] Point of Care testing , ISTAT GFR ( [facility] Comment on above: Result Comment: GFR estimated reference range: According to KDOQI guidelines, <60 ml/min/1.73m2 is sufficient to diagnose a patient with chronic kidney disease. PERFORMED BY: [place] [address] PATHOLOGIST SUPERVISOR [employer] POOJA MYERS M.D. Performed By: #### I SCRE #### [address] Point of Care testing , ISTAT GFR (Non- Am 46 Normal [facility] Comment on above: Performed By: #### I SCRE #### [facility] [address] [place] [address] Point of Care testing , Vital Signs Date Time Vital Sign Value Performing Clinician Facility 02-01-2023 09:30-0400 Body height 162.56 cm Leo Ball Other [facility] Other 02-01-2023 09:30-0400 Body mass index (BMI) [Ratio] 49.6 kg/m2 Leo Ball Other [facility] Other 02-01-2023 09:30-0400 Body weight 131.09 kg Leo Ball Other [facility] Other 02-01-2023 09:30-0400 Diastolic blood pressure 83 mm[Hg] Leo Ball Other [facility] Other 02-01-2023 09:30-0400 Respiratory rate 20 /min Leo Ball Other [facility] Other 02-01-2023 09:30-0400 SaO2% (BldA) [Mass fraction] 97 % Leo Ball Other [facility] Other 02-01-2023 09:30-0400 Systolic blood pressure 147 mm[Hg] Leo Ball Other [facility] Other 10-30-2022 09:00-0400 Body height 162.56 cm Leo Ball Other [facility] Other 10-30-2022 09:00-0400 Body mass index (BMI) [Ratio] 50.67 kg/m2 Leo Ball Other [facility] Other 10-30-2022 09:00-0400 Body weight 133.9 kg Leo Ball Other [facility] Other 10-30-2022 09:00-0400 Diastolic blood pressure 68 mm[Hg] Leo Ball Other [facility] Other 10-30-2022 09:00-0400 Respiratory rate 20 /min Leo Ball Other [facility] Other 10-30-2022 09:00-0400 SaO2% (BldA) [Mass fraction] 98 % Leo Ball Other [facility] Other 10-30-2022 09:00-0400 Systolic blood pressure 121 mm[Hg] Leo Ball Other [facility] Other 08-24-2022 10:32-0400 Blood Pressure Location Demetrirafael LEE [facility] 08-24-2022 10:32-0400 Diastolic blood pressure 73 mm[Hg] Demetri LEE [facility] 08-24-2022 10:32-0400 Heart rate 59 /min Demetri LEE [facility] 08-24-2022 10:32-0400 Respiratory rate 16 /min Demetri LEE [facility] 08-24-2022 10:32-0400 Systolic blood pressure 125 mm[Hg] Demetri LEE [facility] 06-30-2022 09:00-0500 Body height 162.56 cm Leo Ball Other [facility] Other 06-30-2022 09:00-0500 Body mass index (BMI) [Ratio] 51.52 kg/m2 Leo Ball Other [facility] 06-30-2022 09:00-0500 Body weight 136.17 kg Leo Ball Other [facility] Other 06-30-2022 09:00-0500 Diastolic blood pressure 84 mm[Hg] Leo Ball Other [facility] 06-30-2022 09:00-0500 Respiratory rate 20 /min Leo Ball Other [facility] Other 06-30-2022 09:00-0500 Systolic blood pressure 128 mm[Hg] Leo Ball Other [facility] Other 02-23-2022 11:07-0400 Blood Pressure Location Demetri LEE [facility] 02-23-2022 11:07-0400 Diastolic blood pressure 74 mm[Hg] Demetri LEE [facility] 02-23-2022 11:07-0400 Heart rate 76 /min Demetri LEE [facility] 02-23-2022 11:07-0400 Respiratory rate 16 /min Demetri LEE [facility] 02-23-2022 11:07-0400 Systolic blood pressure 128 mm[Hg] Demetri LEE [facility] 08-04-2021 08:51-0400 Blood Pressure Location Demetri LEE [facility] 08-04-2021 08:51-0400 Diastolic blood pressure 72 mm[Hg] Demetri LEE [facility] 08-04-2021 08:51-0400 Heart rate 63 /min Demetri LEE [facility] 08-04-2021 08:51-0400 Respiratory rate 16 /min Demetri LEE [facility] 08-04-2021 08:51-0400 Systolic blood pressure 121 mm[Hg] Demetri LEE [facility] 04-01-2021 12:45-0500 Body height 162.56 cm Fitojamarcus Bender Other [facility] Other 04-01-2021 12:45-0500 Body mass index (BMI) [Ratio] 51.15 kg/m2 Erika Bender Other [facility] 04-01-2021 12:45-0500 Body temperature 97.6 [degF] Erika Bender Other [facility] 04-01-2021 12:45-0500 Body weight 135.17 kg Erika Bender Other [facility] 11-23-2021 12:45-0500 Diastolic blood pressure 68 mm[Hg] Fitoal Chaban Other [facility] Other 04-01-2021 12:45-0500 Respiratory rate 20 /min Fitoal Chaban Other [facility] Other 04-01-2021 12:45-0500 SaO2% (BldA) [Mass fraction] 97 % Fitoal Chaban Other [facility] 04-01-2021 12:45-0500 Systolic blood pressure 140 mm[Hg] Fitoal Chaban Other [facility] 03-04-2021 16:15-0400 Body height 162.56 cm Erika Chaban Other [facility] 03-04-2021 16:15-0400 Body mass index (BMI) [Ratio] 51.15 kg/m2 Erika Avilaban Other [facility] Other 03-04-2021 16:15-0400 Body temperature 98.3 [degF] Erika Avilaban Other [facility] Other 03-04-2021 16:15-0400 Body weight 135.17 kg Erika Chaban Other [facility] 03-04-2021 16:15-0400 Diastolic blood pressure 68 mm[Hg] Fiotal Chaban Other [facility] 03-04-2021 16:15-0400 Respiratory rate 20 /min Fitoal Chaban Other [facility] Other 03-04-2021 16:15-0400 SaO2% (BldA) [Mass fraction] 97 % Erika Bender Other [facility] 03-04-2021 16:15-0400 Systolic blood pressure 148 mm[Hg] Erika Bender Other [facility] Other Encounters Encounter Date Encounter Type Care Provider Facility Start: 08-30-2023 ambulatory Demetri Ball [facility]: [facility] Start: 06-21-2023 End: 06-22-2023 [facility] Start: 05-20-2023 End: 05-20-2023 ambulatory CLAUDETTE RICHARDSON Not Available Start: 03-08-2023 End: 03-09-2023 ambulatory Mary Ann Villalobos MD Facility: [facility] Start: 02-08-2023 End: 02-09-2023 ambulatory Mary Ann Villalobos MD [facility]: [facility] Start: 02-01-2023 End: 02-01-2023 ambulatory Leo Garcias Other [facility] Other Start: 02-01-2023 Office outpatient vi sit 25 minutes Leo Garcias [facility] Start: 01-27-2023 End: 01-27-2023 ambulatory [facility] Start: 01-13-2023 End: 01-13-2023 ambulatory Leo Garcias Other [facility] Other Start: 01-13-2023 Telephone encounter Leo [facility] Start: 11-09-2022 End: 11-09-2022 ambulatory Leo Garcias Other [facility] Other Start: 11-09-2022 Telephone encounter Leo [facility]ESS [facility] Start: 10-30-2022 End: 10-30-2022 ambulatory Leo Garcias Other [facility] Other Start: 10-30-2022 Patient encounter procedure Leo Garcias [facility] Start: 08-24-2022 End: 08-25-2022 ambulatory Demetri LEE Facility:[facility] Start: 08-24-2022 End: 08-24-2022 Patient encounter procedure Demetri LEE [facility] Start: 07-08-2022 End: 07-08-2022 ambulatory Leo Dieter Other [facility] Other Start: 07-08-2022 Telephone encounter Leo Garcias [facility] Start: 06-30-2022 End: 06-30-2022 ambulatory Leo Garcias Other [facility] Other Start: 06-30-2022 Office outpatient vi sit 25 minutes Leo Garcias [facility] Start: 02-23-2022 End: 02-23-2022 Patient encounter procedure Demetri LEE [facility] Start: 02-17-2022 End: 02-18-[address] LEO GARCIAS Facility:[facility] Start: 10-29-2021 End: 10-30-[address] LEO GARCIAS Facility:[facility] Start: 10-22-2021 Adult health examination Louis Garcias Other [facility] Other Start: 08-28-2021 End: 08-28-[address] DEMETRI LEE Facility:[facility] Start: 08-25-2021 Encounter for preprocedural cardiovascular examination DR DEMETRI LEE [facility] Start: 08-25-2021 Encounter for preprocedural laboratory examination DR DEMETRI LEE [facility] Start: 08-25-[address] DEMETRI LEE [facility] ity:[facility] Start: 08-21-2021 End: 08-22-[address] DEMETRI LEE Facility:[facility] Start: 08-21-2021 End: 08-22-2021 Encounter for preprocedural cardiovascular examination DR DEMETRI LEE Facility:[facility] Start: 08-04-2021 End: 08-04-2021 Patient encounter procedure Demetri LEE [facility] Start: 07-29-2021 End: 07-30-[address] DEMETRI LEE Facility:[facility] Start: 05-05-2021 End: 05-05-[address] LEO GARCIAS Facility:[facility] Start: 04-01-2021 End: 04-01-2021 ambulatory Kamal Chaban Other [facility] Other Start: 04-01-2021 Office outpatient vi sit 15 minutes Kamal Chaban [facility] Start: 03-04-2021 Office outpatient ne w 45 minutes Kamal Chaban [facility] Start: 08-28-2019 Preoperative cardiovascular examination Leo Garcias Other [facility] Other Start: 07-06-2018 End: 07-07-2018 Patient encounter procedure DEFAULT PHYSICIAN Facility:[facility] Start: 07-04-2018 End: 07-05-2018 Patient encounter procedure DEFAULT PHYSICIAN Facility:[facility] Start: 07-01-2018 End: 07-02-2018 Patient encounter procedure DEFAULT PHYSICIAN Facility:[facility] Procedures Date Procedure Procedure Detail Performing Clinician Start: 10-29-[address] BETZY GARCIAS Comment on above: Performed By: #### C BC #### [facility] [address] [place] [address] Dr. Temo Mckeon Start: 08-28-2021 Extracorporeal shock wave lithotripsy of calculus of kidney Demetri LEE Start: 01-26-2019 Cystoscopy Demetri ZIEGLER Start: 01-05-2019 Cystoscopy Demetri ZIEGLER Start: 12-16-2018 Preoperative cardiov ascular examination Leo [...] high dose seasonal, preservative-free Leo Garcias Other [facility] Other 03-23-2022 COVID-19 Pfizer (bivalent) Leo Garcias Other [facility] Other 02-24-2022 influenza virus vaccine, split virus (incl. purified surface antigen) Leo Garcias Other [facility] Other 02-24-2022 influenza, high dose seasonal, preservative-free Leo Garcias Other [facility] Other 03-26-2021 SARS-CoV-2 (COVID-19 ) mRNA BNT-162b2 vax Demetri LEE [facility] Comment on above: Result Comment: 2021: [id number] 02-21-2021 influenza virus vaccine, split virus (incl. purified surface antigen) Leo Garcias Other [facility] Other 02-07-2021 influenza virus vaccine, unspecified formulation Demetri LEE [facility] 07-30-2020 COVID-19 Vaccine Pfi zer - Documentation Purposes Only Erika Bender Other [facility] 07-08-2020 COVID-19 Vaccine Pfi zer - Documentation Purposes Only Erika Bender Other [facility] 05-10-2020 SARS-CoV-2 (COVID-19 ) mRNA BNT-162b2 vax Demetri LEE [facility] Comment on above: Result Comment: pt h as had 3 shots to date 02-29-2020 influenza virus vaccine, split virus (incl. purified surface antigen) Leo Garcias Other [facility] Other 02-16-2019 influenza virus vaccine, split virus (incl. purified surface antigen) Leo Garcias Other [facility] Other 01-24-2018 influenza virus vaccine, split virus (incl. purified surface antigen) Leo Garcias Other [facility] Other 01-24-2018 influenza virus vaccine, unspecified formulation Demetri LEE [facility] 01-24-2018 pneumococcal Conjuga te, unspecified formulation; Translations: [Need for prophylactic vaccination against Streptococcus pneumoniae (pneumococcus)] Leo Garcias Other [facility] Other 01-24-2018 pneumococcal polysaccharide vaccine, 23 valent Demetri LEE [facility] 02-18-2017 influenza virus vaccine, split virus (incl. purified surface antigen) Leo Garcias Other [facility] Other 02-18-2017 influenza virus vaccine, unspecified formulation Demetri LEE [facility] 02-12-2016 influenza virus vaccine, split virus (incl. purified surface antigen) Leo Garcias Other [facility] Other 02-12-2016 influenza virus vaccine, unspecified formulation Demetri LEE [facility] 02-28-2015 tetanus and diphther ia toxoids, adsorbed, preservative free, for adult use (5 Lf of tetanus toxoid and 2 Lf of diphtheria toxoid) Leo Garcias Other [facility] Other 02-28-2015 pneumococcal conjuga te vaccine, 13 valent Leo Garcias Other [facility] Other 02-16-2014 tetanus and diphther ia toxoids, adsorbed, preservative free, for adult use (5 Lf of tetanus toxoid and 2 Lf of diphtheria toxoid) Leo Garcias Other [facility] Other 02-08-2013 tetanus and diphther ia toxoids, adsorbed, preservative free, for adult use (5 Lf of tetanus toxoid and 2 Lf of diphtheria toxoid) Leo Garcias Other [facility] Other 02-17-2012 tetanus and diphther ia toxoids, adsorbed, preservative free, for adult use (5 Lf of tetanus toxoid and 2 Lf of diphtheria toxoid) Leo Garcias Other [facility] Other 02-13-2009 pneumococcal polysaccharide vaccine, 23 valent Leo Garcias Other [facility] Other 10-17-2003 Td(adult) unspecifie d formulation Demetri LEE [facility] Payers Date Payer Category Payer Medicare 2022 Private Health Insurance 1958 Medicare [id number] 2.1 [id number] 1959 Private Health Insurance [id number] 1946 Unknown [id number] 2.16.8 40.1.423663.3.579.2.647 1946 Unknown [id number] 2.16.8 40.1.731021.3.579.2.647 1946 Unknown [id number] 2.16.8 40.1.014725.3.579.2.647 1946 Unknown [id number] 2.16.84 0.1.340510.3.579.2.593 1946 Unknown [id number] 2.16.84 0.1.847228.3.579.2.593 1946 Unknown [id number] 2.16.84 0.1.021928.3.579.2.593 1946 Unknown [id number] 2.16.84 0.1.315705.3.579.2.593 1946 Unknown [id number] 2.16.84 0.1.038129.3.579.2.593 1946 Unknown [id number] 2.16.84 0.1.031717.3.579.2.593 1946 Unknown [id number] 2.16.84 0.1.358069.3.579.2.593 1946 Unknown [id number] 2.16.84 0.1.342832.3.579.2.593 1946 Unknown [id number] 2.16.84 0.1.787261.3.579.2.1259 1946 Unknown [id number] 2.16.8 40.1.809146.3.579.2.727 1946 Unknown [id number] 2.16.8 40.1.037674.3.579.2.727 1946 Unknown [id number] 2.16. 840.1.749430.3.579.2.196 1945 Unknown [id number] 2.16. 840.1.550625.3.579.2.196 1946 Unknown [id number] 2.16. 840.1.168733.3.579.2.196 Unknown Social History Date Type Detail Facility Start: 01-30-2021 End: 02-23-2022 Tobacco smoking status Never smoked tobacco (finding) [facility] [employer] Other Sex Assigned At Male [facility] [employer] Other Tobacco smoking status Never [facility] Functional Status Date Assessment Result Facility 08-24-2022 Functional Status N/A [facility] 02-23-2022 Functional Status N/A [facility] Clinical Notes 12-09-2020 to 02-01-2023 Note [...] use, the patient reduces the risk for MT, CVA, HTN, cardiac dysrhythmias and sudden cardiac [...] in remission (ICD-10 - F17.211) Continue abstinence [facility] Chief Complaint: Patient [...] should problems arise Shalonda Rai MD, MPH, [facility], [facility], [facility] Interventional Cardiology Pager Email: [email or web address] Evaluation note* Encounter Date Diagnosis Assessment Notes Treatment Notes Treatment Clinical Notes Jan, Lumbosacral spondylosis with radiculopathy (ICD-10 - 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 Follow these instructions at home: Take tvgz-rwr-fkrowtl and prescription medicines only as told by [...] 04/26/2006 Document Revised: 03/21/2019 Document Reviewed: 05/31/2017 [employer] Patient Education 2019 [employer] 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 Follow Up Care 08/28/2021 11:53:17 With:SAMEER MONTIEL, Demetri Sequeira, URL Address: [facility] [address] [place] [address]- [phone] When:08/24/2022 [facility] 03-28-2022 Hospital Discharge instructions Patient Education [...] Follow these instructions at home: Medicines Take oowz-vmg-zcbqsqj and prescription medicines only as told by [...] 05/15/2008 Document Revised: 08/07/2019 Document Reviewed: 03/17/2017 [employer] Patient Education 2020 [employer]. 08/04/2021 09:25:02 Calorie Counting for Weight Loss [...] 04/26/2006 Document Revised: 01/13/2019 Document Reviewed: 03/26/2017 [employer] Patient Education 2020 [employer]. 08/04/2021 09:24:51 Benign Prostatic Hyperplasia Benign Prostatic [...] urethra. Follow these instructions at home: Take oltq-khw-uxhngxu and prescription medicines only as told by [...] 04/26/2006 Document Revised: 03/21/2019 Document Reviewed: 05/31/2017 [employer] Patient Education [email or web address]. Follow Up Care 01/30/2021 10:09:00 With:SAMEER MONTIEL, Demetri Sequeira, NAYAL Address: [facility] [address], [place] [address] [phone] When: Unknown Comments:Will schedule RT ESWLF/u in 3-4 month due to new medication [facility] 11-23-2021 Evaluation note* Encounter Date Diagnosis Assessment Notes Treatment Notes Treatment Clinical Notes Mar, Dyspnea on exertion (ICD-10 - R06.00) Mar, Leg edema (ICD-10 - R60.0) [facility] Other 10-26-2021 Evaluation note* Encounter Date Diagnosis Assessment Notes Treatment Notes Treatment Clinical Notes Feb, Dyspnea on exertion (ICD-10 - R06.00) Feb, Leg edema (ICD-10 - R60.0) [facility] Other 08-02-2021 NoteHNO ID: [id number] Author: Amara Esqueda MD Service: ? Author [...] SAD, initial OS: Normal, initial OCT RNFL 12/09/20 OD full, initial OS possible inferior thinning, [...] its relevant components. Amara Esqueda MD [facility] Future Appointments Appointment Date:11/07/2021 09:30:00 AM Scheduled Provider:Demetri LEE MD Location:[facility] Appointment Type:URO Office Visit [facility] evaluation + Plan note Future Appointments Appointment Date:08/24/2022 10:30:00 AM Scheduled Provider:Demetri LEE MD Location:[facility] Appointment Type:URO Office Visit [facility] evaluation + Plan note Future Appointments Appointment Date:03/01/2023 09:15:00 AM Scheduled Provider:Demetri LEE MD Location:[facility] Appointment Type:URO Office Visit [facility] evaluation noteNo [employer] Other History general Narrative - Reported* Type Description Date Medical History ADITHYA Medical History hypertension Medical History heart disease Surgical History bypass triple Surgical History 2 knee replacements Surgical History hiatal hernia Surgical History cataract x 2 Hospitalization History as above [facility] Other Hiswyal general Narrative - Reported* Type Description Date [...] OF KIDNEY STONE Hospitalization History as above [facility] Other Hospital course Narrative No data available for this section [facility] progress note No data available for this section [facility] Summary Purpose Family History No Family [...] 1 Lumbar spondylosis ( M47.816) Referral Organization [facility] yashira Referring Provider First Name Leo Referring Provider Last Name Dieter Referring Provider Specialty Internal Me dicine Referred Organization [facility] Referred Provider Samantha Contreras Referred Address [address] [place], [place],[address] Referred Provider Specialty Pain Medicin e Referral [...] section and content) DATE CREATED AUTHOR 07/07/2018 [facility] DATE CREATED AUTHOR AUTHOR'S ORGANIZ ATION 12/09/2020 [facility] DATE CREATED AUTHOR AUTHOR'S ORGANIZ ATION 03/10/2021 [facility] DATE CREATED AUTHOR AUTHOR'S ORGANIZ ATION 03/01/2022 [facility] DATE CREATED AUTHOR AUTHOR'S ORGANIZ ATION 01/29/2023 [facility] DATE CREATED AUTHOR AUTHOR'S ORGANIZ ATION 05/21/2023 [facility] DATE CREATED AUTHOR AUTHOR'S ORGANIZ ATION 06/18/[address] [facility] DATE CREATED AUTHOR AUTHOR'S ORGANIZ ATION 06/27/2023 [facility] REASON FOR VISIT (unrecogniz ed section and content) Ref by Dr. Garcias for Dyspnea on exertion4 wk f/u MONTES, Leg Edema4 MONTH FOLLOW UPNo InformationSENTARA [facility]ENTERlab resultsWELLADVENT[facility]ALTH PARKERNo Information3 month Follow up Patient Care team informatio n (unrecognized section and content) Personnel Name: LEO GARCIAS DO Address: Address: [address] [place], [place] [address] Personnel Name: LEO GARCIAS DO Address: Address: [address] FOR RECORDS PERTAINING TO PATIENTS WHO ARE [...] BE BASED ON THE PRIMARY CLINICAL RECORDS. [employer] [facility]. provides no warranty or guarantee of the accuracy or completeness of information in this document.
== END 2023-07-05 09:27 | disposition home or self-care (01) ==
PROVIDERS: PCP Internal Medicine; Visit Provider Anesthesiology
DX: M48.062 Spinal stenosis, lumbar region with neurogenic claudication (principal)
CPT/HCPCS: 63650; 77002; 95972; C1897; J2704

== ENCOUNTER 2023-07-08 10:49 | Outpatient (OUT) | payer MEDICARE, OTHER, SELFPAY ==
--- NOTE | 2023-07-08 10:56 | PM.CN ---
Consult Note: HPI Data of Consult Requesting Physician: Blessing Benavides NP Primary Care Provider: Leo Garcias DO Consult Narrative Narrative: Eagle Almanzar a pleasant 78 year old male presents for evaluation of chronic low back and bilateral leg pain. Pt has not had much relief with conservative measures. continues to utilize percocet. denies adverse med side effects.? The patient presents today for evaluation of Spinal Cord Stimulator trial.? The patient has completed the prescribed anti-biotic course.? Patient denies any fevers, chills, or night sweats.? The patient states that during the trial pain was decreased by 30%.? Patient states that their activity level was significantly increased.? Patient noticed he was able to walk further, stand longer, do housework. He does feel improvement in his pain and functional ability. Patient reported to his rep significant improvement throughout the trial. Patient would like to think about his response over the next few days. cc:: CC: Blessing Benavides NP Review of Systems ROS Status of ROS 10 or more systems reviewed and unremarkable except as noted in history and below [facility] Medical History (Updated 07/02/23 @ 12:50 by Yasmin Cadena) Uses continuous positive airway pressure (CPAP) ventilation at home ?Z99.89 - Dependence on other enabling machines and devices (ICD-10) History of stroke ?Z86.73 - Personal history of transient ischemic attack (TIA), and cerebral infarction without residual deficits (ICD-10) Osteoarthritis ?M19.90 - Unspecified osteoarthritis, unspecified site (ICD-10) Upper back pain ?M54.9 - Dorsalgia, unspecified (ICD-10) Low back pain ?M54.50 - Low back pain, unspecified (ICD-10) Anxiety ?F41.9 - Anxiety disorder, unspecified (ICD-10) Kidney stone ?N20.0 - Calculus of kidney (ICD-10) Sleep apnea ?G47.30 - Sleep apnea, unspecified (ICD-10) Hypertension ?I10 - Essential (primary) hypertension (ICD-10) Surgical History S/P triple vessel bypass ?Z95.1 - Presence of aortocoronary bypass graft (ICD-10) History of knee replacement ?Z96.659 - Presence of unspecified artificial knee joint (ICD-10) History of repair of hiatal hernia ?Z98.890 - Other specified postprocedural states (ICD-10) ?Z87.19 - Personal history of other diseases of the digestive system (ICD-10) Meds Home Medications and Allergies Home Medications Medication Instructions Recorded Confirmed Type amlodipine 10 mg-benazepril 20 mg 1 cap PO DAILY 02/08/23 07/05/23 History capsule aspirin 81 mg tablet,delayed 81 mg PO DAILY 02/08/23 07/05/23 History release (Adult Aspirin Regimen) atorvastatin 80 mg tablet 80 mg PO DAILY 02/08/23 07/05/23 History citalopram 20 mg tablet 20 mg PO DAILY 02/08/23 07/05/23 History clopidogrel 75 mg tablet 75 mg PO DAILY 02/08/23 07/05/23 History finasteride 5 mg tablet 5 mg PO DAILY 02/08/23 07/05/23 History furosemide 20 mg tablet 20 mg PO DAILY 02/08/23 07/05/23 History isosorbide mononitrate 60 mg 60 mg PO DAILY 02/08/23 07/05/23 History tablet,extended release 24 hr metoprolol succinate 50 mg 50 mg PO DAILY 02/08/23 07/05/23 History tablet,extended release 24 hr oxybutynin chloride 15 mg 15 mg PO DAILY 02/08/23 07/05/23 History tablet,extended release 24 hr tamsulosin 0.4 mg capsule 0.4 mg PO Q24H 02/08/23 07/05/23 History oxycodone-acetaminophen 5 mg-325 1 tab PO TID PRN pain #21 tabs 04/08/23 07/05/23 Rx mg tablet (Percocet) Allergies Allergy/AdvReac Type Severity Reaction Status Date / Time No Known Drug Allergies Allergy Verified 07/05/23 07:16 Exam Narrative Exam Narrative: Psych-alert and oriented x 3. Attentive and appropriate, constitutionally normal, displays normal mood and affect per situation.? There are no obvious deficits in memory, reasoning, or intellect.? Skin-no obvious rashes, bruising, erythema noted to the patient's area of pain. Extremities- extremities are warm with minimal edema and palpable pulses. Lumbar-no significant tenderness to palpation noted in the lumbar spine and paraspinal musculature.? Pain is elicited with extension, and lateral rotation of the lumbar spine. Range of motion is slightly diminished with these motions due to pain. Coordination remains intact.? Gait remains non-antalgic. Assessment and Plan Assessment and Plan (1) Lumbar spondylosis: (2) Lumbar stenosis with neurogenic claudication: Plan The dressings were removed.? Sutures were released.? The leads were removed without difficulty.? The insertion sites are clean, dry, and non-erythematous.? There is no Tenderness to palpation.? restart plavix tomorrow f/u with Dr Villalobos wednesday
== END 2023-07-08 10:50 | disposition home or self-care (01) ==
LOC: PM 10:49
PROVIDERS: PCP Internal Medicine; Visit Provider Nurse Practitioner
DX: M47.816 Spondylosis without myelopathy or radiculopathy, lumbar region (principal); M48.062 Spinal stenosis, lumbar region with neurogenic claudication
CPT/HCPCS: 99024

== ENCOUNTER 2023-08-13 07:37 | Outpatient (OUT) | payer MEDICARE, OTHER, SELFPAY ==
--- OUTSIDE RECORDS SUMMARY | 2023-08-13 07:41 | XMS_ITS | CCD ---
Author Organization [facility] Care Team Providers Care Bend Up Name Role Phone PHYSICIAN, DEFAULT Admitting Unavailable PHYSICIAN, DEFAULT Attending Unavailable DIETER, LEO Primary Care Unavailable PHYSICIAN, DEFAULT Admitting Unavailable PHYSICIAN, DEFAULT Attending Unavailable DIETER, LEO Primary Care Unavailable PHYSICIAN, DEFAULT Admitting Unavailable PHYSICIAN, DEFAULT Attending Unavailable DIETER, LEO Primary Care Unavailable LEO GARCIAS Primary Care Physician Erika Bender Unavailable DIETER, DR VAZQUEZ Primary Care Unavailable SAMEER, DR FOX Admitting Unavailable LEE, DR FOX Attending Unavailable LEE, DR FOX Consulting Unavailable BALL, DR VAZQUEZ Admitting Unavailable BALL, DR VAZQUEZ Attending Unavailable BALL, DR VAZQUEZ Primary Care Unavailable DIETER, DR VAZQUEZ Consulting Unavailable LEE, DR FOX Admitting Unavailable LEE, DR FOX Attending Unavailable BALL, DR VAZQUEZ Primary Care Unavailable LEE, DR FOX Consulting Unavailable CARLO, DR TANISHA Deleon Consulting Unavailable BALL, DR VAZQUEZ Admitting Unavailable BALL, DR VAZQUEZ Attending Unavailable BALL, DR VAZQUEZ Primary Care Unavailable BALL, DR VAZQUEZ Consulting Unavailable DIETER, DR VAZQUEZ Admitting Unavailable BALL, DR VAZQUEZ Attending Unavailable BALL, DR VAZQUEZ Primary Care Unavailable BALL, DR VAZQUEZ Consulting Unavailable CHRISTENSEN, RADU Consulting Unavailable LEE, DR FOX Admitting Unavailable LEE, DR FOX Attending Unavailable BALL, DR VAZQUEZ Primary Care Unavailable LEE, DR FOX Consulting Unavailable LEE, DR FOX Admitting Unavailable LEE, DR FOX Attending Unavailable BALL, DR VAZQUEZ Primary Care Unavailable LEE, DR FOX Consulting Unavailable ZA, CANDICE Consulting Unavailable AFSHAN GTZ Consulting Unavaila ble SAMEER, DR FOX Admitting Unavailable SAMEER, DR FOX Attending Unavailable BALL, DR VAZQUEZ Primary Care Unavailable Dieter, Leo Unavailable SHALONDA RAI Attending Unavailable CLAUDETTE RICHARDSON Attending Unavailable LEE, Demetri Sequeira Attending Unavailable LEE, Demetri Sequeira Attending Unavailable Wilfredo MONTIEL, Mary Ann Chacko Attending Unavailable Wilfredo MONTIEL, Mary Ann Chacko Attending Unavailable Wilfredo MONTIEL, Mary Ann Chacko Attending Unavailable Wilfredo MONTIEL, Mary Ann Chacko Attending Unavailable Allergies Allergy Classification Reported Allergen(s) Allergy Type Date of Onset Reaction(s) Facility (1 source) 74318,00; Translations: [26153,00] Propensity to adverse reactions (disorder) 9 [facility] Repository (2 sources) patient allergy list reviewed by nurse or physicia Propensity to adverse reactions Comment:Done [employer] Other (1 source) No Known Medication Allergies; Translations: [No Known Medication Allergies] Propensity to adverse reactions (disorder) [facility] Repository Medications Current Medications Medication Drug Class(es) [...] Daily, # 30 tab(s), Refills(s) 11, Pharmacy: [facility]/pharmacy #[id number], 164, cm, 08/04/21 8:56:00 EDT, Height/Length Dosing, 139, kg, 08/04/21 8:56:00 EDT, Weight Dosing Start Date: 08/04/21 Status: Ordered tamsulosin hydrochloride 0.4 mg oral capsule (12 sources) alpha-Adrenergic Remy Start: 06-26-2022 take 1 capsule by mouth twice daily tamsulosin 0.4 mg Cap 0.4 mg = 1 cap(s), Oral, BID, # 180 cap(s), Refills(s) 3, Pharmacy: [facility]/pharmacy #[id number], 164, cm, 02/23/22 11:10:00 EDT, Height/Length Dosing, 139, kg, 02/23/22 11:10:00 EDT, Weight Dosing Start Date: 06/26/22 Status: Ordered Start: 02-23-2022 End: 06-23-2022 take 1 capsule by mouth twice daily tamsulosin 0.4 mg Cap 0.4 mg = 1 cap(s), Oral, BID, X 30 day(s), # 60 cap(s), Refills(s) 3, Pharmacy: [facility]/pharmacy #[id number], 164, cm, 02/23/22 11:10:00 EDT, Height/Length Dosing, 139, kg, 02/23/22 11:10:00 EDT, Weight Dosing Start Date: 02/23/22 Stop Date: 06/23/22 Status: Ordered Start: 11-22-2020 End: 11-17-2021 take 1 capsule by mouth twice daily Flomax 0.4 mg Cap 0.4 mg = 1 cap(s), Oral, BID, X 90 day(s), # 180 cap(s), Refills(s) 3, Pharmacy: [facility]/pharmacy #[id number], 164, cm, 07/26/20 9:40:00 EDT, Height/Length Dosing, 138.5, kg, 07/26/20 9:40:00 EDT, Weight Dosing Start Date: 11/22/20 Stop Date: 11/17/21 Status: Ordered take 1 capsule by [facility] every twenty-four hours Flomax 0.4 MG [...] Coronary arteriosclerosis; Translations: [Atherosclerotic heart disease of [place] coronary artery without angina pectoris] Onset: 01-27-2023 [...] unspecified] Chronic Other aftercare (3 sources) 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; Translations: [OTH RESIDENTIAL CURRENT DRUG THERAPY] Onset: 08-25-2021 Episodic Other aftercare (2 sources) Long-term current use of drug therapy; Translations: [Other detention (current) drug therapy] Episodic Other and ill-defined [...] Resolved: 01-08-2021 Episodic Other aftercare (1 source) 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; Translations: [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 CURRNT USE ANTICOAGULANTS] Onset: 08-29-2021 Episodic Other aftercare (1 source) long-term (current) use of antithrombotics/ant iplatelets; Translations: [RESIDENTIAL ANTITHROMBOT/ANTIPL ATLETS] Onset: 08-25-2021 Episodic Other and [...] Range Facility Office Visiton 01-27-2023 Follow-up visit [id number] Ralph Lam 1945 M Date Provider Department Center 01/27/2023 271-NKECHITATANO, EHAB BH CARD [facility] No family history on file Level of Service:52941 [place] OFFICE/OUTPATIENT ESTABLISHED MOD MDM 30-39 MIN Normal [facility] Ambulatory Visit Summaryon 0 08-24-2022 Ambulatory Visit Summary LENIN LAM :1945 Visit Date:08/24/2022 Ambulatory Visit Instructions Your Diagnosis BPH with urinary obstruction Urinary urgency Incontinence without sensory awareness History of kidney stones Tests Performed Urnls Dip Stick Auto w/o Microscopy POC 34886 XR Abdomen 1 View -- Results Pending [...] Demetri LEE MD Where: [facility] Patient Educationon 08-25-19 Patient Education Urology Benign [...] Follow these instructions at home: ? Take [id number]-pvogrsp and prescription medicines only as told by [...] d (more content not included)... Normal Wilfredo [facility] Urology Office/Clinic Noteon 08-24-2022 Urology Office/Clinic [...] [facility] [address], [place] [address]- Additional Instructions: 6 mos with KUB Patient [...] SARS-CoV-2 (COVID-1 (more content not included)... Normal [facility] Comment on above: Result Comment: Elec tronically Signed By: Demetri LEE MD\.br\Date and Time Signed: 08/24/22 11:21 EDT\.br\Electronically Co-Signed By: Allison Dotson\.br\Date and Time Co-Signed: 08/24/22 11:20 EDT 36on 07-07-2022 36 Notes: Rx refused. N ot seen since December 2020. Normal [facility] BNPon 02-17-2022 Natriuretic peptide B (Bld) [Mass/Vol] 330.0 pg/mL Normal <=1,800.0 [facility] Comment on above: Performed By: #### B EMT DISPATCHER, TSH, BMP #### [facility] [address] [address] [address] Temo Mckeon CBC AUTO DIFFon 02-17-2022 BASO # 0.1 103/ul Normal 0.0-0.1 [facility] Comment on above: Performed By: #### C BC #### [facility] [address] [address] [address] Temo Mckeon Basophils/100 WBC (Bld) 0.4 % Normal 0.2-2.0 [facility] Comment on above: Performed By: #### C BC #### [facility] [address] [place] [address] Dr. Temo Mckeon EO # 0.3 103/ul Normal 0.0-0.7 [facility] Comment on above: Performed By: #### C BC #### [facility] [address] [place] [address] Dr. Temo Mckeon Eosinophils/100 WBC (Bld) 2.8 % Normal 0.9-7.0 [facility] Comment on above: Performed By: #### C BC #### [facility] [address] [place] [address] Dr. Temo Mckeon Erythrocyte distribution width (RBC) [Ratio] 13.5 % Normal 11.0-15.0 [facility] Comment on above: Performed By: #### C BC #### [facility] [address] [place] [address] Dr. Temo Mckeon Hematocrit (Bld) [Volume fraction] 38.5 % Critically low 42.0-54.0 [facility] Comment on above: Performed By: #### C BC #### [facility] [address] [place] [address] Dr. Temo Mckeon Hemoglobin (Bld) [Mass/Vol] 12.5 g/dL Critically low 14.0-18.0 [facility] Comment on above: Performed By: #### C BC #### [facility] [address] [place] [address] Dr. Temo Mckeon IG # 0.11 10e3/ul Critically high 0.00-0.[address] [facility] Comment on above: Performed By: #### C BC #### [facility] [address] [place] [address] Dr. Temo Mckeon IG % 0.9 % Critically high 0.0-0.5 [facility] Comment on above: Performed By: #### C BC #### [facility] [address] [place] [address] Dr. Temo Mckeon LYMPH # 2.1 103/ul Normal 1.2-3.8 [facility] Comment on above: Performed By: #### C BC #### [facility] [address] [place] [address] Dr. Temo Mckeon Lymphocytes/100 WBC (Bld) 17.5 % Critically low 20.5-60.0 [facility] Comment on above: Performed By: #### C BC #### [facility] [address] [place] [address] Dr. Temo Mckeon MANUAL DIFF REQ NO Normal [facility] Comment on above: Performed By: #### C BC #### [facility] [address] [place] [address] Dr. Temo Mckeon MCH (RBC) [Entitic mass] 30.6 pg Normal 25.9-34.0 [facility] Comment on above: Performed By: #### C BC #### [facility] [address] [place] [address] Dr. Temo Mckeon MCHC (RBC) [Mass/Vol] 32.5 g/dL Normal 29.9-35.2 [facility] Comment on above: Performed By: #### C BC #### [facility] [address] [place] [address] Dr. Temo cMkeon MCV (RBC) [Entitic vol] 94.1 fL Critically high 80.0-94.0 [facility] Comment on above: Performed By: #### C BC #### [facility] [address] [place] [address] Dr. Temo Mckeon MONO # 0.9 103/ul Critically high 0.3-0.8 [facility] Comment on above: Performed By: #### C BC #### [facility] [address] [place] [address] Dr. Temo Mckeon Monocytes/100 WBC (Bld) 7.9 % Normal 1.7-12.0 [facility] Comment on above: Performed By: #### C BC #### [facility] [address] [place] [address] Dr. Temo Mckeon NEUT # 8.4 103/ul Critically high 1.4-6.5 [facility] Comment on above: Performed By: #### C BC #### [facility] [address] [address] [address] Temo Mckeon Neutrophils/100 WBC (Bld) 70.5 % Normal 43.0-75.0 [facility] Comment on above: Performed By: #### C BC #### [facility] [address] [address] [address] Temo Mckeon Platelet mean volume (Bld) [Entitic vol] 10.5 fL Normal 9.5-13.5 [facility] Comment on above: Performed By: #### C BC #### [facility] [address] [place] [address] Dr. Temo Mckeon PLT 172 103/ul Normal 150-450 [facility] Comment on above: Performed By: #### C BC #### [facility] [address] [place] [address] Dr. Temo Mckeon RBC 4.09 106/ul Critically low 4.70-6.10 [facility] Comment on above: Performed By: #### C BC #### [facility] [address] [address] [address] Temo Mckeon WBC 11.9 103/ul Critically high 4.0-11.0 [facility] Comment on above: Performed By: #### C BC #### [facility] [address] [place] [address] Dr. Temo Mckeon PROF CHEM 8 (BAS METB)on Anion gap [Moles/Vol] 14.2 mmol/L Normal [facility] Comment on above: Performed By: #### B EMT DISPATCHER, TSH, BMP #### [facility] [address] [address] [address] Temo Mckeon Calcium [Mass/Vol] 9.1 mg/dL Normal 8.5-10.1 [facility] Comment on above: Performed By: #### B EMT DISPATCHER, TSH, BMP #### [facility] [address] [place] [address] Dr. Temo Mckeon Chloride [Moles/Vol] 105 mmol/L Normal 98-107 [facility] Comment on above: Performed By: #### B EMT DISPATCHER, TSH, BMP #### [facility] [address] [place] [address] Dr. Temo Mckeon CO2 [Moles/Vol] 25.3 mmol/L Normal 21.0-32.0 [facility] Comment on above: Performed By: #### B EMT DISPATCHER, TSH, BMP #### [facility] [address] [place] [address] Dr. Temo Mckeon Creatinine [Mass/Vol] 1.72 mg/dL Critically high 0.70-1.30 [facility] Comment on above: Performed By: #### B EMT DISPATCHER, TSH, BMP #### [facility] [address] [place] [address] Dr. Temo Mckeon EGFR-AF NICARAGUAN 47 mL/min/1.73m2 Critically low >=60 [facility] Comment on above: Performed By: #### B EMT DISPATCHER, TSH, BMP #### [facility] [address] [place] [address] Dr. Temo Mckeon EGFR-NON AF NICARAGUAN 39 mL/min/1.73m2 Critically low >=60 [facility] Comment on above: Performed By: #### B EMT DISPATCHER, TSH, BMP #### [facility] [address] [place] [address] Dr. Temo Mckeon Glucose [Mass/Vol] 134 mg/dL Critically high 74-106 [facility] Comment on above: Performed By: #### B EMT DISPATCHER, TSH, BMP #### [facility] [address] [place] [address] Dr. Temo Mckeon Potassium [Moles/Vol] 4.5 mmol/L Normal 3.5-5.1 [facility] Comment on above: Performed By: #### B EMT DISPATCHER, TSH, BMP #### [facility] [address] [place] [address] Dr. Temo Mckeon Sodium [Moles/Vol] 140 mmol/L Normal 136-145 [facility] Comment on above: Performed By: #### B EMT DISPATCHER, TSH, BMP #### [facility] [address] [place], [place] [address] Dr. Temo Mckeon Urea nitrogen [Mass/Vol] 36.0 mg/dL Critically high 7.0-18.0 [facility] Comment on above: Performed By: #### B EMT DISPATCHER, TSH, BMP #### [facility] [address] [place], [place] [address] Dr. Temo Mckeon Urea nitrogen/Creatinine [Mass ratio] 20.9 mg/mg Normal [facility] Comment on above: Performed By: #### B EMT DISPATCHER, TSH, BMP #### [facility] [address] [place], [place] [address] Dr. Temo Mckeon TSHon 02-17-2022 TSH 1.708 uIU/mL Normal 0.358-3.740 [facility] Comment on above: Performed By: #### B EMT DISPATCHER, TSH, BMP #### [facility] [address] [address] [address] Temo Mckeon XR KUB 1 VIEWon [...] by: RADU CHRISTENSEN Date: 2022-02-17 11:43 Normal [facility] METHYLMALONIC ACID (MMA)on 0 11-01-2021 Methylmalonic Acid, Serum 205 nmol/L Normal 0-378 [facility] Comment on above: Performed By: #### C BC #### [facility] [address] [place] [address] Dr. Temo Mckoen FOLATE ([facility])on Folate >20.0 Normal >3.0 [facility] Comment on above: Result Comment: A se rum folate concentration of less than 3.1 ng/mL is considered to represent clinical deficiency. Performed By: #### B MP, ALT, LIPID #### [facility] [address] [place] [address] Dr. Temo Mckeon CBC AUTO DIFFon 10-29-2021 BASO # 0.1 103/ul Normal 0.0-0.1 [facility] Comment on above: Performed By: #### C BC #### [facility] [address] [place] [address] Dr. Temo Mckeon Basophils/100 WBC (Bld) 0.5 % Normal 0.2-2.0 [facility] Comment on above: Performed By: #### C BC #### [facility] [address] [place] [address] Dr. Temo Mckeon EO # 0.3 103/ul Normal 0.0-0.7 [facility] Comment on above: Performed By: #### C BC #### [facility] [address] [place] [address] Dr. Temo Mckeon Eosinophils/100 WBC (Bld) 3.3 % Normal 0.9-7.0 [facility] Comment on above: Performed By: #### C BC #### [facility] [address] [place] [address] Dr. Temo Mckeon Erythrocyte distribution width (RBC) [Ratio] 13.3 % Normal 11.0-15.0 [facility] Comment on above: Performed By: #### C BC #### [facility] [address] [place] [address] Dr. Temo Mckeon Hematocrit (Bld) [Volume fraction] 40.4 % Critically low 42.0-54.0 [facility] Comment on above: Performed By: #### C BC #### [facility] [address] [address] [address] Temo Mckeon Hemoglobin (Bld) [Mass/Vol] 13.4 g/dL Critically low 14.0-18.0 [facility] Comment on above: Performed By: #### C BC #### [facility] [address] [place] [address] Dr. Temo Mckeon IG # 0.06 10e3/ul Critically high 0.00-0.[address] [facility] Comment on above: Performed By: #### C BC #### [facility] [address] [place] [address] Dr. Temo Mckeon IG % 0.6 % Critically high 0.0-0.5 [facility] Comment on above: Performed By: #### C BC #### [facility] [address] [place] [address] Dr. Temo Mckeon LYMPH # 2.2 103/ul Normal 1.2-3.8 [facility] Comment on above: Performed By: #### C BC #### [facility] [address] [place] [address] Dr. Temo Mckeon Lymphocytes/100 WBC (Bld) 22.6 % Normal 20.5-60.0 [facility] Comment on above: Performed By: #### C BC #### [facility] [address] [place] [address] Dr. Temo Mckeon MANUAL DIFF REQ NO Normal [facility] Comment on above: Performed By: #### C BC #### [facility] [address] [place] [address] Dr. Temo Mckeon MCH (RBC) [Entitic mass] 30.8 pg Normal 25.9-34.0 [facility] Comment on above: Performed By: #### C BC #### [facility] [address] [place] [address] Dr. Temo Mckeon MCHC (RBC) [Mass/Vol] 33.2 g/dL Normal 29.9-35.2 [facility] Comment on above: Performed By: #### C BC #### [facility] [address] [place] [address] Dr. Temo Mckeon MCV (RBC) [Entitic vol] 92.9 fL Normal 80.0-94.0 [facility] Comment on above: Performed By: #### C BC #### [facility] [address] [place] [address] Dr. Temo Mckeon MONO # 0.7 103/ul Normal 0.3-0.8 [facility] Comment on above: Performed By: #### C BC #### [facility] [address] [address] [address] Temo Mckeon Monocytes/100 WBC (Bld) 7.6 % Normal 1.7-12.0 [facility] Comment on above: Performed By: #### C BC #### [facility] [address] [place] [address] Dr. Temo Mckeon NEUT # 6.2 103/ul Normal 1.4-6.5 [facility] Comment on above: Performed By: #### C BC #### [facility] [address] [place] [address] Dr. Temo Mckeon Neutrophils/100 WBC (Bld) 65.4 % Normal 43.0-75.0 [facility] Comment on above: Performed By: #### C BC #### [facility] [address] [place] [address] Dr. Temo Mckeon Platelet mean volume (Bld) [Entitic vol] 10.5 fL Normal 9.5-13.5 [facility] Comment on above: Performed By: #### C BC #### [facility] [address] [place] [address] Dr. Temo Mckeon PLT 169 103/ul Normal 150-450 [facility] Comment on above: Performed By: #### C BC #### [facility] [address] [place] [address] Dr. Temo Mckeon RBC 4.35 106/ul Critically low 4.70-6.10 [facility] Comment on above: Performed By: #### C BC #### [facility] [address] [place] [address] Dr. Temo Mckeon WBC 9.5 103/ul Normal 4.0-11.0 [facility] Comment on above: Performed By: #### C BC #### [facility] [address] [place] [address] Dr. Temo Mckeon FERRITINon 10-29-2021 Ferritin [Mass/Vol] 423.0 ng/mL Critically high 26.0-388.0 [facility] Comment on above: Performed By: #### C BC #### [facility] [address] [place] [address] Dr. Temo Mckeon IRON AND TIBCon 10-29-2021 % SATURATION 25.6 % Normal [facility] Comment on above: Performed By: #### C BC #### [facility] [address] [place] [address] Dr. Temo Mckeon Iron [Mass/Vol] 79.0 ug/dL Normal 65.0-175.0 [facility] Comment on above: Performed By: #### C BC #### [facility] [address] [place] [address] Dr. Temo Mckeon TIBC DIRECT 308.0 ug/dL Normal 250.0-450.0 [facility] Comment on above: Performed By: #### C BC #### [facility] [address] [place] [address] Dr. Temo Mckeon LIPID PROFILEon 10-29-2021 CHOL-HDL RATIO NORM SEE BELOW Normal [facility] Comment on above: Result Comment: 3.3 - 4.4 LOW RISK 4.4 - 7.1 AVERAGE RISK 7.1 - 11.0 MODERATE RISK >11.0 HIGH RISK Performed By: #### B MP, ALT, LIPID #### [facility] [address] [place] [address] Dr. Temo Mckeon Cholesterol [Mass/Vol] 93 mg/dL Normal <=200 [facility] Comment on above: Performed By: #### B MP, ALT, LIPID #### [facility] [address] [place] [address] Dr. Temo Mckeon Cholesterol in HDL [Mass/Vol] 40 mg/dL Normal 40-60 [facility] Comment on above: Performed By: #### B MP, ALT, LIPID #### [facility] [address] [address] [address] Temo Mckeon Cholesterol in LDL [Mass/Vol] 35.4 mg/dL Normal [facility] Comment on above: Performed By: #### B MP, ALT, LIPID #### [facility] [address] [address] [address] Temo Mckeon Cholesterol.total/C holesterol in HDL [Mass ratio] 2.3 {ratio} Normal [facility] Comment on above: Performed By: #### B MP, ALT, LIPID #### [facility] [address] [address] [address] Temo Mckeon HDL NORMAL > or = 60 mg/dl - LO W CARDIOVASCULAR RISK <40 mg/dl - HIGH CARDIOVASCULAR RISK Normal [facility] Comment on above: Performed By: #### B MP, ALT, LIPID #### [facility] [address] [place] [address] Dr. Temo Mckeon LDL CALC NORMAL SEE BELOW Normal [facility] Comment on above: Result Comment: <100 mg/dl OPTIMAL 100 - 129 mg/dl NEAR OR ABOVE OPTIMAL 130 - 159 mg/dl BORDERLINE HIGH 160 - 189 mg/dl HIGH >190 mg/dl VERY HIGH Performed By: #### B MP, ALT, LIPID #### [facility] [address] [address] [address] Temo Mckeon Triglyceride [Mass/Vol] 88 mg/dL Normal <=150 [facility] Comment on above: Performed By: #### B MP, ALT, LIPID #### [facility] [address] [place] [address] Dr. Temo Mckeon VLDL CALC 17.6 mg/dL Normal [facility] Comment on above: Performed By: #### B MP, ALT, LIPID #### [facility] [address] [place] [address] Dr. Temo Mckeon PROF CHEM 8 (BAS METB)on Anion gap [Moles/Vol] 14.6 mmol/L Normal [facility] Comment on above: Performed By: #### B MP, ALT, LIPID #### [facility] [address] [address] [address] Temo Mckeno Calcium [Mass/Vol] 8.8 mg/dL Normal 8.5-10.1 [facility] Comment on above: Performed By: #### B MP, ALT, LIPID #### [facility] [address] [address] [address] Temo Mckeon Chloride [Moles/Vol] 106 mmol/L Normal 98-107 [facility] Comment on above: Performed By: #### B MP, ALT, LIPID #### [facility] [address] [address] [address] Temo Mckeon CO2 [Moles/Vol] 23.8 mmol/L Normal 21.0-32.0 [facility] [facility] Comment on above: Performed By: #### B MP, ALT, LIPID #### [facility] [address] [place] [address] Dr. Temo Mckeon Creatinine [Mass/Vol] 1.57 mg/dL Critically high 0.70-1.30 [facility] Comment on above: Performed By: #### B MP, ALT, LIPID #### [facility] [address] [address] [address] Temo Mckeon EGFR-AF NICARAGUAN 52 mL/min/1.73m2 Critically low >=60 [facility] Comment on above: Performed By: #### B MP, ALT, LIPID #### [facility] [address] [address] [address] Temo Mckeon EGFR-NON AF NICARAGUAN 43 mL/min/1.73m2 Critically low >=60 [facility] Comment on above: Performed By: #### B MP, ALT, LIPID #### [facility] [address] [address] [address] Temo Mckeon Glucose [Mass/Vol] 148 mg/dL Critically high 74-106 [facility] Comment on above: Performed By: #### B MP, ALT, LIPID #### [facility] [address] [address] [address] Temo Mckeon Potassium [Moles/Vol] 4.4 mmol/L Normal 3.5-5.1 [facility] Comment on above: Performed By: #### B MP, ALT, LIPID #### [facility] [address] [place] [address] Dr. Temo Mckeon Sodium [Moles/Vol] 140 mmol/L Normal 136-145 [facility] Comment on above: Performed By: #### B MP, ALT, LIPID #### [facility] [address] [place] [address] Dr. Temo Mckeon Urea nitrogen [Mass/Vol] 31.0 mg/dL Critically high 7.0-18.0 [facility] Comment on above: Performed By: #### B MP, ALT, LIPID #### [facility] [address] [place] [address] Dr. Temo Mckeon Urea nitrogen/Creatinine [Mass ratio] 19.7 mg/mg Normal [facility] Comment on above: Performed By: #### B MP, ALT, LIPID #### [facility] [address] [place] [address] Dr. [facility] ALT [Catalytic activity/Vol] 39 U/L Normal 16-63 [facility] Comment on above: Performed By: #### B MP, ALT, LIPID #### [facility] [address] [place] [address] Dr. Temo Mckeon VITAMIN B12on 10-29-2021 Cobalamin (Vitamin B12) [Mass/Vol] 675.0 pg/mL Normal 193.0-986.0 [facility] Comment on above: Performed By: #### C BC #### [facility] [address] [place] [address] Dr. Temo Mckeon XR KUB 1 VIEWon [...] MARTA HALE Date: 2021-08-29 19:34 Normal [facility] CBC AUTO DIFFon 08-21-2021 BASO # 0.0 103/ul Normal 0.0-0.1 [facility] Comment on above: Performed By: #### C BC #### [facility] [address] [address] [address] Temo Mckeon Basophils/100 WBC (Bld) 0.3 % Normal 0.2-2.0 [facility] Comment on above: Performed By: #### C BC #### [facility] [address] [address] [address] Temo Mckeon EO # 0.3 103/ul Normal 0.0-0.7 [facility] Comment on above: Performed By: #### C BC #### [facility] [address] [address] [address] Temo Mckeon Eosinophils/100 WBC (Bld) 3.2 % Normal 0.9-7.0 [facility] Comment on above: Performed By: #### C BC #### [facility] [address] [address] [address] Temo Mckeon Erythrocyte distribution width (RBC) [Ratio] 13.5 % Normal 11.0-15.0 [facility] Comment on above: Performed By: #### C BC #### [facility] [address] [address] [address] Temo Mckeon Hematocrit (Bld) [Volume fraction] 38.8 % Critically low 42.0-54.0 [facility] Comment on above: Performed By: #### C BC #### [facility] [address] [address] [address] Temo Mckeon Hemoglobin (Bld) [Mass/Vol] 12.8 g/dL Critically low 14.0-18.0 [facility] Comment on above: Performed By: #### C BC #### [facility] [address] [address] [address] Temo Mckeon IG # 0.05 10e3/ul Critically high 0.00-0.[address] [facility] Comment on above: Performed By: #### C BC #### [facility] [address] [place] [address] Dr. Temo Mckeon IG % 0.5 % Normal 0.0-0.5 [facility] Comment on above: Performed By: #### C BC #### [facility] [address] [place] [address] Dr. Temo Mckeon LYMPH # 1.8 103/ul Normal 1.2-3.8 [facility] Comment on above: Performed By: #### C BC #### [facility] [address] [place] [address] Dr. Temo Mckeon Lymphocytes/100 WBC (Bld) 19.6 % Critically low 20.5-60.0 [facility] Comment on above: Performed By: #### C BC #### [facility] [address] [place] [address] Dr. Temo Mckeon MANUAL DIFF REQ NO Normal [facility] Comment on above: Performed By: #### C BC #### [facility] [address] [place] [address] Dr. Temo Mckeon MCH (RBC) [Entitic mass] 31.1 pg Normal 25.9-34.0 [facility] Comment on above: Performed By: #### C BC #### [facility] [address] [place] [address] Dr. Temo Mckeon MCHC (RBC) [Mass/Vol] 33.0 g/dL Normal 29.9-35.2 [facility] Comment on above: Performed By: #### C BC #### [facility] [address] [place] [address] Dr. Temo Mckeon MCV (RBC) [Entitic vol] 94.4 fL Critically high 80.0-94.0 [facility] Comment on above: Performed By: #### C BC #### [facility] [address] [place] [address] Dr. Temo Mckeon MONO # 0.7 103/ul Normal 0.3-0.8 [facility] Comment on above: Performed By: #### C BC #### [facility] [address] [address] [address] Temo Mckeon Monocytes/100 WBC (Bld) 7.5 % Normal 1.7-12.0 [facility] Comment on above: Performed By: #### C BC #### [facility] [address] [address] [address] Temo Mckeon NEUT # 6.4 103/ul Normal 1.4-6.5 [facility] Comment on above: Performed By: #### C BC #### [facility] [address] [address] [address] Temo Mckeon Neutrophils/100 WBC (Bld) 68.9 % Normal 43.0-75.0 [facility] Comment on above: Performed By: #### C BC #### [facility] [address] [place] [address] Dr. Temo Mckeon Platelet mean volume (Bld) [Entitic vol] 10.2 fL Normal 9.5-13.5 [facility] Comment on above: Performed By: #### C BC #### [facility] [address] [place] [address] Dr. Temo Mckeon PLT 160 103/ul Normal 150-450 [facility] Comment on above: Performed By: #### C BC #### [facility] [address] [place] [address] Dr. Temo Mckeon RBC 4.11 106/ul Critically low 4.70-6.10 [facility] Comment on above: Performed By: #### C BC #### [facility] [address] [place] [address] Dr. Temo Mcekon WBC 9.3 103/ul Normal 4.0-11.0 [facility] Comment on above: Performed By: #### C BC #### [facility] [address] [place] [address] Dr. Temo Mckeon [facility]08 SARS-CoV-2 (COVID-19) RNA PRADEEP+probe Ql (Unsp spec) Not detected Normal NOT DETECTED [facility] Comment on above: Result Comment: This test is not yet approved or cleared by the [place] FDA. When there are no FDA-approved or cleared tests available, and other criteria are met, FDA can make tests available under an emergency access mechanism called an Emergency Use Authorization (EUA). The EUA for this test is supported by the [place] of Health and Human Service's (HHS's) declaration [...] SARS-CoV-2. Performed By: #### C BC #### [facility] [address] [place] [address] Dr. Temo Mckeon PROF CHEM 8 (BAS METB)on Anion gap [Moles/Vol] 12.4 mmol/L Normal [facility] Comment on above: Performed By: #### C BC #### [facility] [address] [place] [address] Dr. Temo Mckeon Calcium [Mass/Vol] 8.6 mg/dL Normal 8.5-10.1 [facility] Comment on above: Performed By: #### C BC #### [facility] [address] [place] [address] Dr. Temo Mckeon Chloride [Moles/Vol] 105 mmol/L Normal 98-107 [facility] Comment on above: Performed By: #### C BC #### [facility] [address] [place] [address] Dr. Temo Mckeon CO2 [Moles/Vol] 27.0 mmol/L Normal 22.0-30.0 [facility] Comment on above: Performed By: #### C BC #### [facility] [address] [place] [address] Dr. Temo Mckeon Creatinine [Mass/Vol] 1.57 mg/dL Critically high 0.66-1.25 [facility] Comment on above: Performed By: #### C BC #### [facility] [address] [address] [address] Temo Mckeon EGFR-AF NICARAGUAN 52 mL/min/1.73m2 Critically low >=60 [facility] Comment on above: Performed By: #### C BC #### [facility] [address] [address] [address] Temo Mckeon EGFR-NON AF NICARAGUAN 43 mL/min/1.73m2 Critically low >=60 [facility] Comment on above: Performed By: #### C BC #### [facility] [address] [address] [address] Temo Mckeon Glucose [Mass/Vol] 145 mg/dL Critically high 74-106 T [facility] Comment on above: Performed By: #### C BC #### [facility] [address] [address] [address] Temo Mckeon Potassium [Moles/Vol] 4.4 mmol/L Normal 3.4-5.0 [facility] Comment on above: Performed By: #### C BC #### [facility] [address] [address] [address] Temo Mckeon Sodium [Moles/Vol] 140 mmol/L Normal 137-145 [facility] Comment on above: Performed By: #### C BC #### [facility] [address] [address] [address] Temo Mckeon Urea nitrogen [Mass/Vol] 32.0 mg/dL Critically high 7.0-18.0 [facility] Comment on above: Performed By: #### C BC #### [facility] [address] [address] [address] Temo Mckeon Urea nitrogen/Creatinine [Mass ratio] 20.4 mg/mg Normal [facility] Comment on above: Performed By: #### C BC #### [facility] [address] [address] [address] Temo Mckeon PROTIMEon 08-21-2021 INR Coag (PPP) [Relative time] 1.04 {INR} Normal [facility] Comment on above: Performed By: #### C BC #### [facility] [address] [place] [address] Dr. Temo Mckeon INR GUIDELINES SEE BELOW Normal [facility] Comment on above: Result Comment: APPLE RED INR: 2.0 - 3.0 CONDITIONS NOT LISTED BELOW 2.5 - 3.5 FOR PROSTHETIC HEART VALVE REPLACEMENT 2.5 - 3.5 RECURRENT THROMBOSIS Performed By: #### C BC #### [facility] [address] [place] [address] Dr. Temo Mckeon PT Coag (PPP) [Time] 11.2 s Normal 9.0-11.6 [facility] Comment on above: Performed By: #### C BC #### [facility] [address] [place] [address] Dr. Temo Mckeon PTTon 08-21-2021 aPTT Coag (Bld) [Time] 25.2 s Normal 22.3-36.2 [facility] Comment on above: Performed By: #### C BC #### [facility] [address] [place] [address] Dr. Temo Mckeon XR KUB 1 VIEWon [...] TANISHA MATOS Date: 2021-07-29 09:21 Normal [facility] Covid-19 PCR (CVDTB)on 04-10 SARS-CoV-2 (COVID-19) RNA PRADEEP+probe Ql (Unsp spec) Not detected Normal NOT DETECTED [facility] Comment on above: Result Comment: This test is not yet approved or cleared by the [place] FDA. When there are no FDA-approved or cleared tests available, and other criteria are met, FDA can make tests available under an emergency access mechanism called an Emergency Use Authorization (EUA). The EUA for this test is supported by the Armature Repairer of Health and Human Service's (HHS's) declaration [...] SARS-CoV-2. Performed By: #### C [facility] #### [facility] [address] [place] [address] angio chest PE protocolon 03-07-2021 CT angio chest PE protocol [facility] [address] [place] [address] CT Scan Report Signed Patient: Lenin Lam MR#: [id number] 71 : 1945 Acct:[id number] Age/Sex: 75 / M ADM Date: 03/07/21 Loc: CT Room: Type: [facility] Attending Dr: Erika Bender MD [...] Balwinder Zambrano M.D.03/07/2021 2:01 PM Dictation Location: [place] [address] Transcribed By: [facility] 03/07/21 1401 Dictated By: Balwinder Zambrano DO 03/07/21 1359 Signed By: 03/07/21 1401 [facility] echo transthoracicon [facility] echo transthoracic [facility] [address] [place] [address] Echocardiogram Signed Patient: Lenin Lam MR#: [id number] 71 : 1945 Acct:[id number] Age/Sex: 75 / M ADM Date: 03/07/21 Loc: CT Room: Type: [facility] Attending Dr: Erika Bender MD Ordering Provider: Erika Bender MD Date of Service: 03/07/21 [facility] echo transthoracic: DYSPNEA Copies to: [facility] 2.3 m2 BP: 174/95 mmHg HR: [...] DO 03/07/21 1351 Signed By: 03/07/21 1449 [facility] ISTAT XRjeevan CREon 03-07-2021 Creatinine [Mass/Vol] 1.5 mg/dL High 0.6-1.3 [facility] Comment on above: Result Comment: ER/E SD physician is notified/shown all ISTAT results. Critical values may be confirmed by laboratory testing if deemed necessary by ER attending doctor. Performed By: #### I SCRE #### [address] Point of Care testing , ISTAT GFR ( 55 [facility] Comment on above: Result Comment: GFR estimated reference range: According to KDOQI guidelines, <60 ml/min/1.73m2 is sufficient to diagnose a patient with chronic kidney disease. PERFORMED BY: [place] [phone] PATHOLOGIST BRIDGE PAINTER POOJA MYERS M.D. Performed By: #### I SCRE #### [facility] [address] [id number] [facility] Point of Care testing , ISTAT GFR (Non- Am [address] [facility] Comment on above: Performed By: #### I SCRE #### [facility] [address] [id number] [facility] Point of Care testing , Vital Signs Date Time Vital Sign Value Performing Clinician Facility 02-01-2023 09:30-0400 Body height 162.56 cm Leo Ball Other [employer] [employer] Other 02-01-2023 09:30-0400 Body mass index (BMI) [Ratio] 49.6 kg/m2 Leo Ball Other [facility] [employer] [facility] Other 02-01-2023 09:30-0400 Body weight 131.09 kg Leo Ball Other [facility] [employer] [facility] Other 02-01-2023 09:30-0400 Diastolic blood pressure 83 mm[Hg] Leo Ball Other [facility] [employer] Other 02-01-2023 09:30-0400 Respiratory rate 20 /min Leo Ball Other [facility] [employer] Other 02-01-2023 09:30-0400 SaO2% (BldA) [Mass fraction] 97 % Leo Ball Other [facility] [employer] [facility] Other 02-01-2023 09:30-0400 Systolic blood pressure 147 mm[Hg] Leo Ball Other [facility] [employer] Other 10-30-2022 09:00-0400 Body height 162.56 cm Leo Ball Other [facility] [employer] Other 10-30-2022 09:00-0400 Body mass index (BMI) [Ratio] 50.67 kg/m2 Leo Ball Other [facility] Other 10-30-2022 09:00-0400 Body weight 133.9 kg Leo Ball Other [facility] [employer] Other 10-30-2022 09:00-0400 Diastolic blood pressure 68 mm[Hg] Leo Ball Other [facility] Other 10-30-2022 09:00-0400 Respiratory rate 20 /min Leo Ball Other [facility] Other 10-30-2022 09:00-0400 SaO2% (BldA) [Mass fraction] 98 % Leo Ball Other [employer] Other 10-30-2022 09:00-0400 Systolic blood pressure 121 mm[Hg] Leo Ball Other [employer] Other 08-24-2022 10:32-0400 Blood Pressure Location Demetri LEE [facility] 08-24-2022 10:32-0400 Diastolic blood pressure 73 mm[Hg] Demetri LEE [facility] 08-24-2022 10:32-0400 Heart rate 59 /min Demetri LEE [facility] 08-24-2022 10:32-0400 Respiratory rate 16 /min Demetri LEE [facility] 08-24-2022 10:32-0400 Systolic blood pressure 125 mm[Hg] Demetri LEE [facility] 06-30-2022 09:00-0500 Body height 162.56 cm Leo Ball Other [employer] Other 06-30-2022 09:00-0500 Body mass index (BMI) [Ratio] 51.52 kg/m2 Leo Ball Other [employer] Other 06-30-2022 09:00-0500 Body weight 136.17 kg Leo Ball Other [facility] [employer] Other 06-30-2022 09:00-0500 Diastolic blood pressure 84 mm[Hg] Leo Ball Other [facility] Other 06-30-2022 09:00-0500 Respiratory rate 20 /min Leo Ball Other [facility] [employer] Other 06-30-2022 09:00-0500 Systolic blood pressure 128 mm[Hg] Leo Ball Other [facility] Other 02-23-2022 11:07-0400 Blood Pressure Location Demetri LEE [facility] 02-23-2022 11:07-0400 Diastolic blood pressure 74 mm[Hg] Demetri LEE [facility] 02-23-2022 11:07-0400 Heart rate 76 /min Demetri LEE [facility] 02-23-2022 11:07-0400 Respiratory rate 16 /min Demetri LEE [facility] 02-23-2022 11:07-0400 Systolic blood pressure 128 mm[Hg] Demetri LEE [facility] 08-04-2021 08:51-0400 Blood Pressure Location Demetri LEE [facility] 08-04-2021 08:51-0400 Diastolic blood pressure 72 mm[Hg] [facility] 08-04-2021 08:51-0400 Heart rate 63 /min [facility] 08-04-2021 08:51-0400 Respiratory rate 16 /min Demetri LEE [facility] 08-04-2021 08:51-0400 Systolic blood pressure 121 mm[Hg] Demetri LEE [facility] 04-01-2021 12:45-0500 Body height 162.56 cm Erika Bender Other [employer] Other 04-01-2021 12:45-0500 Body mass index (BMI) [Ratio] 51.15 kg/m2 Erika Bender Other [employer] Other 04-01-2021 12:45-0500 Body temperature 97.6 [degF] Erika Bender Other [employer] Other 04-01-2021 12:45-0500 Body weight 135.17 kg Erika Bender Other [employer] Other 04-01-2021 12:45-0500 Diastolic blood pressure 68 mm[Hg] Kamal Chaban Other [employer] Other 04-01-2021 12:45-0500 Respiratory rate 20 /min Fitoal Chaban Other [employer] Other 04-01-2021 12:45-0500 SaO2% (BldA) [Mass fraction] 97 % Erika Chaban Other [employer] Other 04-01-2021 12:45-0500 Systolic blood pressure 140 mm[Hg] Fitoal Chaban Other [employer] Other 03-04-2021 16:15-0400 Body height 162.56 cm Erika Avilaban Other [employer] Other 03-04-2021 16:15-0400 Body mass index (BMI) [Ratio] 51.15 kg/m2 Erika Avilaban Other [employer] Other 03-04-2021 16:15-0400 Body temperature 98.3 [degF] Erika Avilaban Other [employer] Other 03-04-2021 16:15-0400 Body weight 135.17 kg Erika Avilaban Other [employer] Other 03-04-2021 16:15-0400 Diastolic blood pressure 68 mm[Hg] Fitoal Chaban Other [employer] Other 03-04-2021 16:15-0400 Respiratory rate 20 /min Erika Chaban Other [employer] Other 03-04-2021 16:15-0400 SaO2% (BldA) [Mass fraction] 97 % Erika Bender Other [employer] Other 03-04-2021 16:15-0400 Systolic blood pressure 148 mm[Hg] Erika Bender Other [employer] Other Encounters Encounter Date Encounter Type Care Provider Facility Start: 08-30-2023 ambulatory Demetri Ball ty:[facility] Start: 07-05-2023 End: 07-06-2023 ambulatory Mary Ann Villalobos MD [facility] Start: 06-21-2023 End: 06-22-2023 ambulatory Mary Ann Villalobos MD Facility:[facility] Start: 05-20-2023 End: 05-20-2023 ambulatory CLAUDETTE RICHARDSON Not Available Start: 03-08-2023 End: 03-09-2023 ambulatory [facility] Start: 02-08-2023 End: 02-09-2023 ambulatory [facility] Start: 02-01-2023 End: 02-01-2023 ambulatory Leo Garcias Other [employer] Other Start: 02-01-2023 Office outpatient vi sit 25 minutes Leo RODRIGUEZ [facility] Start: 01-27-2023 End: 01-27-2023 ambulatory AB [facility] Start: 01-13-2023 End: 01-13-2023 ambulatory Leo Garcias Other [employer] Other Start: 01-13-2023 Telephone encounter Leo Ruvalcaba [facility] Start: 11-09-2022 End: 11-09-2022 ambulatory Leo Garcias Other [employer] Other Start: 11-09-2022 Telephone encounter Leo Ruvalcaba [facility] Start: 10-30-2022 End: 10-30-2022 ambulatory Leo Garcias Other [employer] Other Start: 10-30-2022 Patient encounter procedure Leo Garcias [facility] Start: 08-24-2022 End: 08-25-2022 ambulatory Demetri LEE Facility:[facility] Start: 08-24-2022 End: 08-24-2022 Patient encounter procedure Demetri LEE [facility] Start: 07-08-2022 End: 07-08-2022 ambulatory Leo Garcias Other [employer] Other Start: 07-08-2022 Telephone encounter Leo Garcias [facility] Start: 06-30-2022 End: 06-30-2022 ambulatory Leo Garcias Other [employer] Other Start: 06-30-2022 Office outpatient vi sit 25 minutes Leo Garcias [facility] Start: 02-23-2022 End: 02-23-2022 Patient encounter procedure Demetri LEE [facility] Start: 02-17-2022 End: 02-18-[address] LEO GARCIAS Facility:[facility] Start: 10-29-2021 End: 10-30-[address] LEO GARCIAS Facility:[facility] Start: 10-22-2021 Adult health examination Louis Garcias Other [employer] Other Start: 08-28-2021 End: 08-28-[address] DEMETRI LEE Facility:[facility] Start: 08-25-2021 Encounter for preprocedural cardiovascular examination DR DEMETRI LEE [facility] Start: 08-25-2021 Encounter for preprocedural laboratory examination DR DEMETRI LEE [facility] Start: 08-25-[address] DEMETRI LEE [facility] ity:[facility] Start: 08-21-2021 End: 08-22-[address] DEMETRI LEE Facility:[facility] Start: 08-21-2021 End: 08-22-2021 Encounter for preprocedural cardiovascular examination DR DEMETRI LEE Facility:[facility] Start: 08-04-2021 End: 08-04-2021 Patient encounter procedure Demetri LEE [facility] Start: 07-29-2021 End: 07-30-[address] DEMETRI LEE Facility:[facility] Start: 05-05-2021 End: 05-05-[address] LEO GARCIAS Facility:[facility] Start: 04-01-2021 End: 04-01-2021 ambulatory Kamal Chaban Other [employer] Other Start: 04-01-2021 Office outpatient vi sit 15 minutes Kamal Chaban [facility] Start: 03-04-2021 Office outpatient ne w 45 minutes Kamal Chaban [facility] Start: 08-28-2019 Preoperative cardiovascular examination Leo Garcias Other [employer] Other Start: 07-06-2018 End: 07-07-2018 Patient encounter procedure DEFAULT PHYSICIAN Facility:[facility] Start: 07-04-2018 End: 07-05-2018 Patient encounter procedure DEFAULT PHYSICIAN Facility:[facility] Start: 07-01-2018 End: 07-02-2018 Patient encounter procedure DEFAULT PHYSICIAN Facility:[facility] Procedures Date Procedure Procedure Detail Performing Clinician Start: 10-29-[address] BETZY GARCIAS Comment on above: Performed By: #### C BC #### [facility] [facility] [address] [place] [address] Dr. Temo Mckeon Start: 08-28-2021 Extracorporeal shock [...] high dose seasonal, preservative-free Leo Garcias Other [employer] Other 03-23-2022 COVID-19 Pfizer (bivalent) Leo Garcias Other [employer] Other 02-24-2022 influenza virus vaccine, split virus (incl. purified surface antigen) Leo Garcias Other [employer] Other 02-24-2022 influenza, high dose seasonal, preservative-free Leo Garcias Other [employer] Other 03-26-2021 SARS-CoV-2 (COVID-19 ) mRNA BNT-162b2 vax Demetri LEE [facility] Comment on above: Result Comment: 2021: [id number] 02-21-2021 influenza virus vaccine, split virus (incl. purified surface antigen) Leo Garcias Other [employer] Other 02-07-2021 influenza virus vaccine, unspecified formulation Demetri LEE [facility] 07-30-2020 COVID-19 Vaccine Pfi zer - Documentation Purposes Only Erika Bender Other [facility] 07-08-2020 COVID-19 Vaccine Pfi zer - Documentation Purposes Only Erika Bender Other [facility] 05-10-2020 SARS-CoV-2 (COVID-19 ) mRNA BNT-162b2 vax Demetri LEE [facility] Comment on above: Result Comment: pt h as had 3 shots to date 02-29-2020 influenza virus vaccine, split virus (incl. purified surface antigen) Leo Garcias Other [employer] Other 02-16-2019 influenza virus vaccine, split virus (incl. purified surface antigen) Leo Garcias Other [employer] Other 01-24-2018 influenza virus vaccine, split virus (incl. purified surface antigen) Leo Garcias Other [employer] Other 01-24-2018 influenza virus vaccine, unspecified formulation Demetri LEE [facility] 01-24-2018 pneumococcal Conjuga te, unspecified formulation; Translations: [Need for prophylactic vaccination against Streptococcus pneumoniae (pneumococcus)] Leo Garcias Other [employer] Other 01-24-2018 pneumococcal polysaccharide vaccine, 23 valent Demetri LEE [facility] 02-18-2017 influenza virus vaccine, split virus (incl. purified surface antigen) Leo Garcias Other [employer] Other 02-18-2017 influenza virus vaccine, unspecified formulation Demetir LEE [facility] 02-12-2016 influenza virus vaccine, split virus (incl. purified surface antigen) Leo Garcias Other [employer] Other 02-12-2016 influenza virus vaccine, unspecified formulation Demetri SAMEER [facility] 02-28-2015 tetanus and diphther ia toxoids, adsorbed, preservative free, for adult use (5 Lf of tetanus toxoid and 2 Lf of diphtheria toxoid) Leo Garcias Other [employer] Other 02-28-2015 pneumococcal conjuga te vaccine, 13 valent Leo Garcias Other [employer] Other 02-16-2014 tetanus and diphther ia toxoids, adsorbed, preservative free, for adult use (5 Lf of tetanus toxoid and 2 Lf of diphtheria toxoid) Leo Garcias Other [employer] Other 02-08-2013 tetanus and diphther ia toxoids, adsorbed, preservative free, for adult use (5 Lf of tetanus toxoid and 2 Lf of diphtheria toxoid) Leo Garcias Other [employer] Other 02-17-2012 tetanus and diphther ia toxoids, adsorbed, preservative free, for adult use (5 Lf of tetanus toxoid and 2 Lf of diphtheria toxoid) Leo Garcias Other [employer] Other 02-13-2009 pneumococcal polysaccharide vaccine, 23 valent Leo Garcias Other [employer] Other 10-17-2003 Td(adult) unspecifie d formulation Demetri LEE [facility] Payers Date Payer Category Payer Medicare 2022 Private Health Insurance 1958 Medicare [id number] 2.1 [id number] 1959 Private Health Insurance [id number] 1945 Unknown [id number] 2.16.8 40.1.442984.3.579.2.647 1945 Unknown [id number] 2.16.8 40.1.641402.3.579.2.647 1945 Unknown [id number] 2.16.8 40.1.013015.3.579.2.647 1945 Unknown [id number] 2.16.84 0.1.123179.3.579.2.593 1945 Unknown [id number] 2.16.84 0.1.433966.3.579.2.593 1945 Unknown [id number] 2.16.84 0.1.988578.3.579.2.593 1945 Unknown [id number] 2.16.84 0.1.206102.3.579.2.593 1945 Unknown [id number] 2.16.84 0.1.493685.3.579.2.593 1945 Unknown [id number] 2.16.84 0.1.375799.3.579.2.593 1945 Unknown [id number] 2.16.84 0.1.405173.3.579.2.593 1945 Unknown [id number] 2.16.84 0.1.226940.3.579.2.593 1945 Unknown [id number] 2.16.84 0.1.289082.3.579.2.1259 1945 Unknown [id number] 2.16.8 40.1.167385.3.579.2.727 1945 Unknown [id number] 2.16.8 40.1.411059.3.579.2.727 1945 Unknown [id number] 2.16. 840.1.528442.3.579.2.196 1945 Unknown [id number] 2.16. 840.1.025775.3.579.2.196 1945 Unknown [id number] 2.16. 840.1.618679.3.579.2.196 1945 Unknown [id number] 2.16. 840.1.127503.3.579.2.196 Unknown Social History Date Type Detail Facility Start: 01-30-2021 End: 02-23-2022 Tobacco smoking status Never smoked tobacco (finding) [facility] [email or web address] Other Sex Assigned At Male [email or web address] [facility] [email or web address] Other Tobacco smoking status Never [facility] Functional Status Date Assessment Result Facility 08-24-2022 Functional Status N/A [facility] 02-23-2022 Functional Status N/A [facility] Clinical Notes 12-09-2020 to 02-01-2023 Note Date [...] use, the patient reduces the risk for TX, CVA, HTN, cardiac dysrhythmias and sudden cardiac [...] in remission (ICD-10 - F17.211) Continue abstinence [employer] [facility] [...] should problems arise Shalonda Rai MD, MPH, FACC, [facility] Interventional Cardiology Pager Email: [email or web address] Evaluation note* Encounter Date Diagnosis Assessment Notes Treatment Notes Treatment Clinical Notes Jan, Lumbosacral spondylosis with radiculopathy (ICD-10 - 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 Follow these instructions at home: Take giqq-gcf-udwlftb and prescription medicines only as told by [...] 04/26/2006 Document Revised: 03/21/2019 Document Reviewed: 05/31/2017 [employer] Patient Education 2020 [employer]. 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 Follow Up Care 08/28/2021 11:53:17 With:SAMEER MONTIEL, Demetri Sequeira, URL Address: [facility] [address] [place] [address] [phone] When:08/24/2022 [facility] 03-28-2022 Hospital Discharge instructions Patient Education 08/04/2021 [...] Follow these instructions at home: Medicines Take inbe-gnp-axolygb and prescription medicines only as told by [...] 05/15/2008 Document Revised: 08/07/2019 Document Reviewed: 03/17/2017 [employer] Patient Education 2020 [employer]. 08/04/2021 09:25:02 Calorie Counting for Weight Loss [...] 04/26/2006 Document Revised: 01/13/2019 Document Reviewed: 03/26/2017 [employer] Patient Education 2020 [employer]. 08/04/2021 09:24:51 Benign Prostatic Hyperplasia Benign Prostatic [...] urethra. Follow these instructions at home: Take cpxu-snr-uuegudp and prescription medicines only as told by [...] 04/26/2006 Document Revised: 03/21/2019 Document Reviewed: 05/31/2017 [employer] Patient Education 2020 [employer]. Follow Up Care 01/30/2021 10:09:00 With:SAMEER MONTIEL, Demetri Sequeira, URL Address: [facility] [address], [place] [address]- [phone] When: Unknown Comments:Will schedule RT ESWLF/u in 3-4 month due to new medication [facility] 11-23-2021 Evaluation note* Encounter Date Diagnosis Assessment Notes Treatment Notes Treatment Clinical Notes Mar, Dyspnea on exertion (ICD-10 - R06.00) Mar, Leg edema (ICD-10 - R60.0) [employer] Other 10-26-2021 Evaluation note* Encounter Date Diagnosis Assessment Notes Treatment Notes Treatment Clinical Notes Feb, Dyspnea on exertion (ICD-10 - R06.00) Feb, Leg edema (ICD-10 - R60.0) [employer] Other 08-02-2021 NoteHNO ID: [id number] Author: Amara Esqueda MD Service: ? Author [...] its relevant components. Amara Esqueda MD [facility] Future Appointments Appointment Date:11/07/2021 09:30:00 AM Scheduled Provider:Demetri LEE MD Location:[facility] Appointment Type:URO Office Visit [facility] evaluation + Plan note Future Appointments Appointment Date:08/24/2022 10:30:00 AM Scheduled Provider:Demetri LEE MD Location:[facility] Appointment Type:URO Office Visit [facility] evaluation + Plan note Future Appointments Appointment Date:03/01/2023 09:15:00 AM Scheduled Provider:Demetri LEE MD Location:[facility] Appointment Type:URO Office Visit [facility] evaluation noteNo InformationNort aio[employer] Other [employer] general Narrative - Reported* Type Description Date Medical History ADITHYA Medical History hypertension Medical History heart disease Surgical History bypass triple Surgical History 2 knee replacements Surgical History hiatal hernia Surgical History cataract x 2 Hospitalization History as above [employer] Other History general Narrative - Reported* Type [...] OF KIDNEY STONE Hospitalization History as above [employer] Other Hospital course Narrative No data available for this section [facility] HEALBE progress note No data available for this section [facility] HEALBE Summary Purpose Family History No Family History [...] 1 Lumbar spondylosis ( M47.816) Referral Organization [facility] Referring Provider First Name Leo Referring Provider Last Name Dieter Referring Provider Specialty Internal Me dicine Referred Organization [facility] Referred Provider Samantha Contreras Referred Address [address] [facility],[place], [place],[address] Referred Provider Specialty Pain Medicin e Referral [...] section and content) DATE CREATED AUTHOR 07/07/2018 [facility] DATE CREATED AUTHOR AUTHOR'S ORGANIZ ATION 12/09/2020 [facility] DATE CREATED AUTHOR AUTHOR'S ORGANIZ ATION 03/10/2021 [facility] DATE CREATED AUTHOR AUTHOR'S ORGANIZ ATION 03/01/2022 [facility] DATE CREATED AUTHOR AUTHOR'S ORGANIZ ATION 01/29/2023 [facility] DATE CREATED AUTHOR AUTHOR'S ORGANIZ ATION 05/21/2023 [facility] DATE CREATED AUTHOR AUTHOR'S ORGANIZ ATION 06/18/2023 [facility] DATE CREATED AUTHOR AUTHOR'S ORGANIZ ATION 07/16/2023 [facility] REASON FOR VISIT (unrecogniz ed section and content) Ref by Dr. Garcias for Dyspnea on exertion4 wk f/u MONTES, Leg Edema4 MONTH FOLLOW UPNo InformationWELLNESSlab resultsWELLSCL [facility] Information3 month Follow up Patient Care team informatio n (unrecognized section and content) Personnel Name: LEO GARCIAS DO Address: Address: [address] [place], [place] [address] Personnel Name: LOE GARCIAS DO Address: Address: [address] FOR RECORDS PERTAINING TO PATIENTS WHO [...] BE BASED ON THE PRIMARY CLINICAL RECORDS. [facility] [employer] [facility]. provides no warranty or guarantee of the accuracy or completeness of information in this document.
--- NOTE | 2023-08-13 07:52 | XR_ITS ---
The [address] [address] Patient Name: LENIN LAM MRN: [id number] date: 1945 Sex: M Assigned Patient Location: [facility] Current Patient Location: [facility] Accession/Order Number: [id number] Exam Date: 08/13/2023 07:45 Report Date: 08/13/2023 12:57 At the request of: DOMINIQUE ESTRELLA Procedure: XR abdomen 1V EXAM: XR abdomen 1V HISTORY: kidney stones Z87.442 COMPARISON: None. TECHNIQUE: AP view of the abdomen. FINDINGS: Nonobstructive bowel gas pattern is noted. There is no suspicious calcification. The osseous structures are intact. XR/XR abdomen 1V IMPRESSION: Nonobstructive bowel gas pattern. No suspicious renal calcification. Electronically authenticated by: SANDY QUIROZ Date: 08/13/2023 12:57
== END 2023-08-13 07:38 | disposition home or self-care (01) ==
LOC: RAD 07:38
PROVIDERS: PCP Internal Medicine; Visit Provider Urology
DX: Z87.442 Personal history of urinary calculi (principal)
CPT/HCPCS: 74018

== ENCOUNTER 2023-08-24 12:15 | Outpatient (OUT) | payer MEDICARE, OTHER, SELFPAY ==
--- NOTE | 2023-08-24 12:17 | XR_ITS ---
The [address] [address] Patient Name: LENIN LAM MRN: [id number] date: 1945 Sex: M Assigned Patient Location: [facility] Current Patient Location: [facility] Accession/Order Number: [id number] Exam Date: 08/24/2023 13:00 Report Date: 08/24/2023 14:59 At the request of: ANDRI GIEDRAITIS Procedure: XR chest 2V EXAMINATION: XR chest 2V HISTORY: Preop exam COMPARISON: 02/17/2022 TECHNIQUE: PA and lateral FINDINGS: LUNGS: No significant pulmonary parenchymal abnormalities. VASCULATURE: No increased pulmonary vasculature. PLEURA: No pneumothorax, effusion, or pleural thickening. CARDIAC: No cardiomegaly or cardiac silhouette abnormality. MEDIASTINUM: No visible mass or adenopathy. Aortic atherosclerosis. Median sternotomy wires BONES: Mild degenerative disc disease and spondylosis without visible acute abnormalities. OTHER: Negative. XR/XR chest 2V IMPRESSION: No acute cardiopulmonary process Electronically authenticated by: TANISHA MATOS Date: 08/24/2023 14:59
--- NOTE | 2023-08-24 12:17 | ECG_ITS ---
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
--- NOTE | 2023-08-24 13:02 | PM.PRESUREVA ---
History of Present Illness History of Present Illness Chief complaint: LUMBAR STENOSIS Narrative: Patient presents for preadmission testing. The patient reports a long history of low back pain. He has pleaded a spinal cord stimulator trial. He denies any trauma or injury. Patient admits to chronic dyspnea on exertion, history of coronary artery disease with stent placement as well as a triple bypass. He also has a history of a CVA with residual right-sided weakness. Review of Systems ROS Narrative REVIEW OF SYSTEMS: Negative except as stated in HPI, ten or more systems reviewed. Constitutional: No fever , chills, weakness ENT: No sore throat or epistaxis Cardiovascular: No chest pain or palpitations; Chronic lower extremity edema and dyspnea on exertion Respiratory: No cough or wheezing Gastrointestinal: No abdominal pain, constipation, diarrhea, or vomiting Genitourinary: No dysuria or hematuria Neurological: No numbness, tingling, weakness, or headache Psychiatric: No mood changes [facility] Medical History (Updated 08/24/23 @ 12:58 by Christina Blanca NP) Dyspnea on exertion ?R06.09 - Other forms of dyspnea (ICD-10) Arthritis ?M19.90 - Unspecified osteoarthritis, unspecified site (ICD-10) Right shoulder pain ?M25.511 - Pain in right shoulder (ICD-10) Back pain ?M54.9 - Dorsalgia, unspecified (ICD-10) Depression ?F32.A - Depression, unspecified (ICD-10) S/P extracorporeal shock wave therapy ?Z98.890 - Other specified postprocedural states (ICD-10) Glaucoma ?H40.9 - Unspecified glaucoma (ICD-10) Cataract ?H26.9 - Unspecified cataract (ICD-10) GERD (gastroesophageal reflux disease) ?K21.9 - Gastro-esophageal reflux disease without esophagitis (ICD-10) Hernia ?K46.9 - Unspecified abdominal hernia without obstruction or gangrene (ICD-10) High cholesterol ?E78.00 - Pure hypercholesterolemia, unspecified (ICD-10) Right leg weakness ?R29.898 - Other symptoms and signs involving the musculoskeletal system (ICD-10) CVA (cerebral vascular accident) ?I63.9 - Cerebral infarction, unspecified (ICD-10) Extremity edema ?R60.0 - Localized edema (ICD-10) Coronary artery disease ?I25.10 - Atherosclerotic heart disease of [place] coronary artery without angina pectoris (ICD-10) Chronic low back pain ?M54.50 - Low back pain, unspecified (ICD-10) ?G89.29 - Other chronic pain (ICD-10) Lumbar stenosis ?M48.061 - Spinal stenosis, lumbar region without neurogenic claudication (ICD-10) Uses continuous positive airway pressure (CPAP) ventilation at home ?Z99.89 - Dependence on other enabling machines and devices (ICD-10) History of stroke ?Z86.73 - Personal history of transient ischemic attack (TIA), and cerebral infarction without residual deficits (ICD-10) Osteoarthritis ?M19.90 - Unspecified osteoarthritis, unspecified site (ICD-10) Upper back pain ?M54.9 - Dorsalgia, unspecified (ICD-10) Low back pain ?M54.50 - Low back pain, unspecified (ICD-10) Anxiety ?F41.9 - Anxiety disorder, unspecified (ICD-10) Kidney stone ?N20.0 - Calculus of kidney (ICD-10) Sleep apnea ?G47.30 - Sleep apnea, unspecified (ICD-10) Hypertension ?I10 - Essential (primary) hypertension (ICD-10) Surgical History (Updated 08/24/23 @ 12:43 by Christina Blanca NP) History of colonoscopy ?Z98.890 - Other specified postprocedural states (ICD-10) History of heart artery stent ?Z95.5 - Presence of coronary angioplasty implant and graft (ICD-10) History of cardiac catheterization ?Z98.890 - Other specified postprocedural states (ICD-10) S/P cataract extraction and insertion of intraocular lens ?Z98.49 - Cataract extraction status, unspecified eye (ICD-10) ?Z96.1 - Presence of intraocular lens (ICD-10) S/P triple vessel bypass ?Z95.1 - Presence of aortocoronary bypass graft (ICD-10) History of knee replacement ?Z96.659 - Presence of unspecified artificial knee joint (ICD-10) History of repair of hiatal hernia ?Z98.890 - Other specified postprocedural states (ICD-10) ?Z87.19 - Personal history of other diseases of the digestive system (ICD-10) Family History (Updated 08/24/23 @ 13:00 by Christina Blanca NP) Other Family history of cancer Family history of diabetes mellitus Family history of heart disease Family history of hypertension Family history of myocardial infarction Social History (Updated 08/24/23 @ 12:34 by Christina Blanca NP) Within the past year, how often did you have a drink containing alcohol: monthly or less Smoking status: Never smoker Highest level of school completed/degree received: high school graduate Meds Home Medications and Allergies Home Medications ?Medication ?Instructions ?Recorded ?Confirmed ?Type amlodipine 10 mg-benazepril 20 mg 1 cap PO DAILY 02/08/23 08/24/23 History capsule aspirin 81 mg tablet,delayed 81 mg PO DAILY 02/08/23 08/24/23 History release (Adult Aspirin Regimen) atorvastatin 80 mg tablet 80 mg PO DAILY 02/08/23 08/24/23 History citalopram 20 mg tablet 20 mg PO DAILY 02/08/23 08/24/23 History clopidogrel 75 mg tablet 75 mg PO DAILY 02/08/23 08/24/23 History finasteride 5 mg tablet 5 mg PO DAILY 02/08/23 08/24/23 History furosemide 20 mg tablet 20 mg PO DAILY 02/08/23 08/24/23 History isosorbide mononitrate 60 mg 60 mg PO DAILY 02/08/23 08/24/23 History tablet,extended release 24 hr metoprolol succinate 50 mg 50 mg PO DAILY 02/08/23 08/24/23 History tablet,extended release 24 hr oxybutynin chloride 15 mg 15 mg PO DAILY 02/08/23 08/24/23 History tablet,extended release 24 hr tamsulosin 0.4 mg capsule 0.4 mg PO Q24H 02/08/23 08/24/23 History oxycodone-acetaminophen 7.5 mg-325 1 tab PO TID PRN pain #90 tabs 08/17/23 08/24/23 Rx mg tablet (Percocet) Allergies Allergy/AdvReac Type Severity Reaction Status Date / Time No Known Drug Allergies Allergy Verified 08/24/23 12:33 Exam Narrative Exam Narrative: Constitutional: Awake, alert, comfortable, well-appearing, nontoxic, interactive, vital signs as charted Head: Normocephalic, atraumatic Neck: Supple, normal appearance, normal range of motion, no meningeal signs, no lymphadenopathy Respiratory: Dyspnea, able to speak in short sentences, breath sounds clear Cardiovascular: Regular rate and rhythm, strong and regular heart tones Musculoskeletal: Antalgic gait, 2+ edema bilateral lower extremities, no tenderness with palpation over the spine or paraspinal muscles, spine range of motion limited due to discomfort Skin: No rashes or induration, no lesions, only visible skin inspected Neuro: Right upper and lower extremity weakness consistent with baseline, normal sensation Psychiatric: Oriented ?3, normal affect Assessment and Plan Assessment and Plan (1) Lumbar stenosis: Plan Lumbar spinal cord stimulator implant scheduled with Dr. Villalobos 09/06/2023.
[2023-08-24 13:09] LABS: Basophils Percent Auto 0.4 % (0.2-2.0); Eosinophils Absolute Auto 0.2 10^3/uL (0.0-0.7); Eosinophils Percent Auto 2.6 % (0.9-7.0); Hemoglobin 12.4 g/dL (14.0-18.0); Immature Granulocytes Abs Auto 0.05 10^3/uL (0.00-0.03); Immature Granulocytes Pct Auto 0.5 % (0.0-0.5); Lymphocytes Absolute Auto 2.1 10^3/uL (1.2-3.8); Lymphocytes Percent Auto 22.1 % (20.5-60.0); Mean Corpuscular HGB Conc 32.6 g/dL (29.9-35.2); Mean Corpuscular Hemoglobin 31.1 pg (25.9-34.0); Mean Corpuscular Volume 95.2 fL (80.0-94.0); Mean Platelet Volume 10.7 fL (9.5-13.5); Monocytes Absolute Auto 0.7 10^3/uL (0.3-0.8); Monocytes Percent Auto 7.1 % (1.7-12.0); Neutrophils Absolute Auto 6.3 10^3/uL (1.4-6.5); Neutrophils Percent Auto 67.3 % (43.0-75.0); Platelet Count 159 10^3/uL (150-450); Red Blood Count 3.99 10^6/uL (4.70-6.10); Red Cell Distribution Width 13.2 % (11.0-15.0); White Blood Count 9.3 10^3/uL (4.0-11.0)
[2023-08-24 13:21] LABS: Anion Gap 14.8; BUN Creatinine Ratio 17.7; Calcium 9.3 mg/dL (8.5-10.1); Carbon Dioxide 26.8 mmol/L (21.0-32.0); Chloride 106 mmol/L (98-107); Estimated GFR (African America 52 (>=60); Estimated GFR (Non-African Ame 43 (>=60); Glucose 147 mg/dL (74-106); Potassium 4.6 mmol/L (3.5-5.1); Sodium 143 mmol/L (136-145)
[2023-08-24 13:26] LABS: INR 0.98; Partial Thromboplastin Time 25.9 sec (22.3-36.2); Prothrombin Time 10.4 sec (9.0-11.6)
== END 2023-08-24 12:16 | disposition home or self-care (01) ==
LOC: PST 12:16
PROVIDERS: PCP Internal Medicine; Visit Provider Anesthesiology
DX: Z01.810 Encounter for preprocedural cardiovascular examination (principal); Z01.812 Encounter for preprocedural laboratory examination; Z01.818 Encounter for other preprocedural examination; M48.062 Spinal stenosis, lumbar region with neurogenic claudication
CPT/HCPCS: 71046; 80048; 85025; 85610; 85730; 93005; G0463

== ENCOUNTER 2023-09-06 08:42 | Day surgery (SDC) | payer MEDICARE, OTHER, SELFPAY ==
[2023-08-24 12:53] VITALS: BP 129/73; PULSE 63; TEMP 36.4; O2SAT 95; BMI 49.1
--- OUTSIDE RECORDS SUMMARY | 2023-09-06 08:55 | XMS_ITS | CCD ---
Author Organization [facility] Care Team Providers Care Drafting Detailer Name Role Phone PHYSICIAN, DEFAULT Admitting Unavailable PHYSICIAN, DEFAULT Attending Unavailable DIETER, LEO Primary Care Unavailable PHYSICIAN, DEFAULT Admitting Unavailable PHYSICIAN, DEFAULT Attending Unavailable DIETER, LEO Primary Care Unavailable PHYSICIAN, DEFAULT Admitting Unavailable PHYSICIAN, DEFAULT Attending Unavailable DIETER, LEO Primary Care Unavailable LEO GARCIAS Primary Care Physician Erika Bender Unavailable DIETER, DR VAZQUEZ Primary Care Unavailable SAMEER, DR FOX Admitting Unavailable ESTRELLA, DR FOX Attending Unavailable ESTRELLA, DR FOX Consulting Unavailable BALL, DR VAZQUEZ Admitting Unavailable BALL, DR VAZQUEZ Attending Unavailable BALL, DR VAZQUEZ Primary Care Unavailable BALL, DR VAZQUEZ Consulting Unavailable ESTRELLA, DR FOX Admitting Unavailable ESTRELLA, DR FOX Attending Unavailable BALL, DR VAZQUEZ Primary Care Unavailable ESTRELLA, DR FOX Consulting Unavailable WEST, DR TANISHA Deleon Consulting Unavailable BALL, DR VAZQUEZ Admitting Unavailable BALL, DR VAZQUEZ Attending Unavailable BALL, DR VAZQUEZ Primary Care Unavailable BALL, DR VAZQUEZ Consulting Unavailable BALL, DR VAZQUEZ Admitting Unavailable BALL, DR VAZQUEZ Attending Unavailable BALL, DR VAZQUEZ Primary Care Unavailable BALL, DR VAZQUEZ Consulting Unavailable CHRISTENSEN, RADU Consulting Unavailable ESTRELLA, DR FOX Admitting Unavailable ESTRELLA, DR FOX Attending Unavailable BALL, DR VAZQUEZ Primary Care Unavailable ESTRELLA, DR FOX Consulting Unavailable ESTRELLA, DR FOX Admitting Unavailable ESTRELLA, DR FOX Attending Unavailable BALL, DR VAZQUEZ Primary Care Unavailable ESTRELLA, DR FOX Consulting Unavailable ZA, CANDICE Consulting Unavailable AFSHAN GTZ Consulting Unavaila ble SAMEER, DR FOX Admitting Unavailable ESTRELLA, DR FOX Attending Unavailable BALL, DR VAZQUEZ Primary Care Unavailable Dieter, Leo Unavailable SHALONDA RAI Attending Unavailable CLAUDETTE RICHARDSON Attending Unavailable Wilfredo MONTIEL, Mary Ann Chacko Attending Unavailable Wilfredo MONTIEL, Mary Ann Chacko Attending Unavailable Wilfredo MONTIEL, Mary Ann Chacko Attending Unavailable Wilfredo MONTIEL, Mary Ann Chacko Attending Unavailable Orquidea Huston Attending Unavailable Allergies Allergy Classification Reported Allergen(s) Allergy Type Date of Onset Reaction(s) Facility (1 source) 21659,00; Translations: [40412,00] Propensity to adverse reactions (disorder) 9 [facility] Repository (2 sources) patient allergy list reviewed by nurse or physicia Propensity to adverse reactions Comment:Done [place]cover Other (1 source) No Known Medication Allergies; Translations: [No Known Medication Allergies] Propensity to adverse reactions (disorder) [facility] Repository Medications Current Medications Medication Drug Class(es) Dates Sig (Normalized) Sig (Original) acetaminophen 500 mg oral tablet (13 sources) Start: 10-27-2019 Tylenol 500 mg, Oral, [...] / benazepril hydrochloride 20 mg oral capsule (11 sources) Dihydropyridine Calcium Channel Remy, Angiotensin Converting Enzyme Inhibitor Start: 08-24-2022 amlodipine-benaze pril 10 mg-20 mg oral capsule Refill(s) 0 Start Date: 08/24/22 Status: Ordered Aspir-81 (9 sources) Aspir-81 Active Aspirin (4 sources) Platelet Aggregation Inhibitor, Nonsteroidal Anti-inflammatory Drug Start: 10-27-2019 aspirin 81 mg, Refills(s) 0 Start Date: 10/27/19 Status: Ordered atorvastatin 80 mg oral tablet (20 sources) HMG-CoA Reductase Inhibitor Start: 10-27-2019 take 80 mg by mouth once daily Lipitor 80 mg, Oral, Daily, Refills(s) 0 Start Date: 10/27/19 Status: Ordered citalopram 20 mg oral tablet (13 sources) Serotonin Reuptake Inhibitor Start: 08-04-2021 take 1 mg by mouth once daily citalopram 20 mg Tab mg tab(s), Oral, Daily, Refills(s) 0 Start Date: 08/04/21 Status: Ordered clopidogrel 75 mg oral tablet (18 sources) P2Y12 Platelet Inhibitor Start: 10-27-2019 Plavix 75 mg, Oral, Refills(s) 0 Start Date: 10/27/19 Status: Ordered finasteride 5 mg oral tablet (11 sources) 5-alpha Reductase Inhibitor Start: 01-30-2021 take 1 tablet by mouth once daily finasteride 5 mg Tab 5 mg = 1 tab(s), Oral, Daily, # 90 tab(s), Refills(s) 3, Pharmacy: [facility]/pharmacy #[id number], 164, cm, 08/24/22 10:54:00 EDT, Height/Length Dosing, 138, kg, 08/24/22 10:54:00 EDT, Weight Dosing Start Date: 01/19/23 Status: Ordered Lasix (13 sources) Loop Diuretic Start: 10-27-2019 Lasix 20 [...] succinate 50 mg extended release oral tablet (13 sources) beta-Adrenergic Remy Start: 10-27-2019 take 1 mg by mouth once daily metoprolol 50 mg ER Tab mg tab(s), Oral, Daily, Refills(s) 0 Start Date: 10/27/19 Status: Ordered Multi Vitamin+ (4 sources) Start: 10-27-2019 Multi Vitamin+ Refill(s) 0 Start Date: 10/27/19 Status: Ordered 24 hr oxybutynin chloride 15 mg extended release oral tablet (11 sources) Cholinergic Muscarinic Antagonist Start: 06-25-2023 take 1 tablet by mouth once daily oxybutynin 15 mg ER Tab 15 mg = 1 tab(s), Oral, Daily, # 90 tab(s), Refills(s) 3, Pharmacy: [facility]/pharmacy #[id number], 164andrés, 08/24/22 10:54:00 EDT, Height/Length Dosing, 138, kg, 08/24/22 10:54:00 EDT, Weight Dosing Start Date: 06/25/23 Status: Ordered Start: 06-26-2022 take 1 tablet by [facility] every twenty-four hours oxyBUTYnin Chloride ER 15 MG 1 tablet Orally Once a day Jun, Active Start: 08-04-2021 take 1 tablet by mouth once da bettye oxybutynin 15 mg ER Tab 15 mg = 1 tab(s), Oral, Daily, # 30 tab(s), Refills(s) 11, Pharmacy: [facility]/pharmacy #[id number], 164andrés, 08/04/21 8:56:00 EDT, Height/Length Dosing, 139, kg, 08/04/21 8:56:00 EDT, Weight Dosing Start Date: 08/04/21 Status: Ordered tamsulosin hydrochloride 0.4 mg oral capsule (13 sources) alpha-Adrenergic Remy Start: 07-12-2023 take 1 capsule by mouth twice daily tamsulosin 0.4 mg Cap 0.4 mg = 1 cap(s), Oral, BID, # 180 cap(s), Refills(s) 3, [id number] 164, andrés, 08/24/22 10:54:00 EDT, Height/Length Dosing, 138, kg, 08/24/22 10:54:00 EDT, Weight Dosing Start Date: 07/12/23 Status: Ordered Start: 06-26-2022 take 1 capsule by [facility] twice daily tamsulosin 0.4 mg Cap 0.4 mg = 1 cap(s), Oral, BID, # 180 cap(s), Refills(s) 3, Pharmacy: [facility]/pharmacy #[id number], 164, cm, 02/23/22 11:10:00 EDT, Height/Length Dosing, 139, kg, 02/23/22 11:10:00 EDT, Weight Dosing Start Date: 06/26/22 Status: Ordered Start: 02-23-2022 End: 06-23-2022 take 1 capsule by mouth twice daily tamsulosin 0.4 mg Cap 0.4 mg = 1 cap(s), Oral, BID, X 30 day(s), # 60 cap(s), Refills(s) 3, Pharmacy: [facility]/pharmacy #[id number], 164, cm, 02/23/22 11:10:00 EDT, Height/Length Dosing, 139, kg, 02/23/22 11:10:00 EDT, Weight Dosing Start Date: 02/23/22 Stop Date: 06/23/22 Status: Ordered Start: 11-22-2020 End: 11-17-2021 take 1 capsule by mouth twice daily Flomax 0.4 mg Cap 0.4 mg = 1 cap(s), Oral, BID, X 90 day(s), # 180 cap(s), Refills(s) 3, [id number] 164, cm, 07/26/20 9:40:00 EDT, Height/Length Dosing, 138.5, kg, 07/26/20 9:40:00 EDT, Weight Dosing Start Date: 11/22/20 Stop Date: 11/17/21 Status: Ordered take 1 capsule by [facility] every twenty-four hours Flomax 0.4 MG 1 capsule Orally Once a day Active 24 hr tolterodine tartrate 4 mg extended release oral capsule (2 sources) Cholinergic Muscarinic Antagonist take 1 capsule by mouth every twenty-four hours Tolterodine Tartrate ER 4 MG 1 capsule Orally Once a day Active traMADol hydrochloride 50 mg oral tablet (10 sources) Opioid Agonist Start: 07-09-19 take 1 tablet by mouth twice daily as needed traMADol HCl 50 MG 1 tablet as needed Orally twice daily Start 01/13 w/ 2RF Jan, Active Start: 10-27-2019 take 50 mg by [...] infarction, unspecified] Chronic Calculus of urinary tract (17 sources) Kidney stone; Translations: [Calculus of kidney] Onset: 08-04-2021 Episodic Chronic kidney disease (4 sources) Chronic kidney disease; Translations: [Chronic kidney disease, unspecified] Onset: 09-29-2015 Chronic Chronic kidney disease (1 source) Chronic kidney disease; Translations: [CHRONIC KIDNEY DISEASE STAGE 3B] Onset: 02-25-2022 Coronary atherosclerosis and other heart disease (20 sources) Coronary arteriosclerosis; Translations: [Atherosclerotic heart disease of [place]opa coronary artery without angina pectoris] Onset: 01-27-2023 Chronic Deficiency and other anemia (9 sources) Anemia; Translations: [Anemia, unspecified] Episodic Disorders of lipid metabolism (20 sources) Hyperlipidemia; 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] Onset: 08-23-2015 08-14-2021 Chronic Esophageal disorders (1 source) Gastro-esophageal reflux disease with esophagitis; Translations: [Gastroesophageal reflux disease with esophagitis without hemorrhage] Chronic Essential hypertension (17 sources) Hypertensive disorder; Translations: [Essential (primary) hypertension] Onset: 08-29-2021 Resolved: 08-28-2019 08-14-2021 Chronic Genitourinary symptoms and ill-defined conditions (14 sources) Incontinence without sensory awareness; Translations: [Urge incontinence of urine] Onset: 06-13-2015 Chronic Genitourinary symptoms and ill-defined conditions (20 sources) Urgent desire to urinate; Translations: [Urgency [...] malignant melanoma of skin] Episodic Mood disorders (4 sources) Depressive disorder; Translations: [Major depressive disorder, single episode, unspecified] Onset: 08-25-2021 08-14-2021 Chronic Occlusion or stenosis of precerebral arteries (2 sources) Occlusion and stenosis of bilateral carotid arteries; Translations: [Occlusion and stenosis of bilateral carotid arteries] Onset: 01-27-2023 Chronic Osteoarthritis (2 sources) Osteoarthritis; Translations: [Polyosteoarthritis, unspecified] Chronic Other aftercare (3 sources) Other long distance operator (current) drug therapy; Translations: [OTH PRISON CURRENT DRUG THERAPY] Onset: 08-25-2021 Episodic Other aftercare (2 sources) Long-term current use of drug therapy; Translations: [Other [place] (current) drug therapy] Episodic Other and ill-defined [...] Index 45.0-49.9, adult] Onset: 06-13-2015 Chronic Other screening for suspected conditions (not mental disorders or infectious disease) (2 sources) Encounter for screening for malignant neoplasm of prostate; Translations: [Screening for malignant neoplasm done] Onset: 10-30-2021 Episodic Other upper respiratory infections (4 sources) Acute [...] Resolved: 01-08-2021 Episodic Other aftercare (1 source) alf (current) use of anticoagulants; Translations: [PRISON CURRNT USE ANTICOAGULANTS] Onset: 08-29-2021 Episodic Other aftercare (1 source) alf (current) use of antithrombotics/ant iplatelets; Translations: [PRISON ANTITHROMBOT/ANTIPL ATLETS] Onset: 08-25-2021 Episodic Other and [...] Translations: [Obesity, unspecified] Resolved: 08-28-2019 Chronic Other skin disorders (2 sources) Alopecia; Translations: [...] Test Name Value Interpretation Reference Range Facility Patient Educationon 08-31-19 24 Patient Education Urology Benign Prostatic Hyperplasia Benign prostatic hyperplasia (BPH) is an enlarged prostate gland that is caused by the normal aging process. The prostate may get bigger as a man gets older. The condition is not caused by cancer. The prostate is a walnut-sized gland that is involved in the production of semen. It is located in front of the rectum and below the bladder. The bladder stores urine. The urethra carries stored urine out of the body. An enlarged prostate can press on the urethra. This can make it harder to pass urine. The buildup of urine in the bladder can cause infection. Back pressure and infection may progress to bladder damage and kidney (renal) failure. What are the causes? This condition is part of the normal aging process. However, not all men develop problems from this condition. If the prostate enlarges away from the urethra, urine flow will not be blocked. If it enlarges toward the urethra and compresses it, there will be problems passing urine. What increases the risk? This condition is more likely to develop in men older than 50 years. What are the signs or [...] Follow these instructions at home: ? Take gdyt-tsv-kllnokt and prescription medicines only as told by your health care provider. ? Monitor your symptoms for any changes. Contact your health care provider with any changes. ? Avoid drinking large amounts of liquid before going to bed or out in public. ? Avoid or reduce how much caffeine or alcohol you drink. ? Give yourself time when you urinate. ? Keep all follow-up visits. This is important. Contact a health care provider if: ? You have unexplained back pain. ? Your symptoms do not get better with treatment. ? You develop side effects from the medicine (more content not included)... Normal [facility] Urology Office/Clinic Noteon 08-31-2023 Urology Office/Clinic Note Chief Complaint 6 month with KUB HPI Staff 6 mo w/ KUB (office RS'd x2) Dx: BPH w/urinary obstruction, urinary urgency, incontinence w/o sensory awareness, hx of kidney stones Tamsulosin 0.4mg BID, Finasteride 5mg. QD, Oxybutynin ER 15mg. KUB done 08/13/2023 Findings-nonobstructive bowel gas pattern is noted, no suspicious calcification, osseous structures are intact. Dysuria: no Incomplete bladder emptying: no Hematuria: no Frequency: 1-2 hours Urgency: Pt. states if he waits 30mins or less he will have urgency Nocturia: 2-4x's Stream: good stream Post void dripping: no Wearing pads/ Depends: no Urge incontinence:occasional ly Stress incontinence: no Incontinence without Sensory Awareness: no Abdominal pain: no Flank pain: no History of Present Illness I have reviewed and verified the staff HPI to be accurate for this encounter. Portions of this record may have been created with voice recognition artificial intelligence software, specifically [employer], [employer] and or [employer]. Substitutions may have occurred due to the inherent limitations of voice recognition and artificial intelligence software. Review of Systems PHQ Score Initial Depression Screen Score: 0 SCORE Physical Exam Vitals & Measurements HT: 65 in HT: 164 cm WT: 138 kg WT: 303.6 lb BMI: 51.31 General: Well developed, well nourished, in no acute distress. Genitourinary: Flank Pain: none. Bladder: nonpalpable. Assessment/Plan 1. History of kidney stones (Z87.442: Personal history of urinary calculi) Has had a total of 2 stone episodes in his lifetime. Denies any stone episodes since previous encounter. s/p right ESWL 11/11/18 and 08/28/21 KUB 08/13/23 - negative Discussed imaging results with patient, no notable stones at this time. He denies flank pain or hematuria. Discussed generalized stone prevention - pt encouraged to increase fluid intake so that he/she producing 2.5L of urine daily. Add 1/4 cup of lemon juice to water throughout the day or can also drink sugar free lemonade or clear soda. Avoid dark noe. Restrict sodium intake. Restrict animal protein. -Follow-up 1 year with KUB. Recall message sent. 2. BPH with urinary obstruction (N40.1: Benign prostatic hyperplasia with lower urinary tract symptoms) Cysto 08/16/18 - Bilobar obstruction. Severe trabec, open tics, some deep. [1] Patient is taking tamsulosin 0.4 mg twice daily plan finasteride 5 mg daily. He is tolerating this well without bothersome side effects. Patient is currently happy with his urinary symptoms. Previously discussed bladder outlet procedure if symptoms worsen. Patient remains uninterested in any type of procedure at this time. Recommend continued doses, given the patient's satisfaction with symptoms. Call for refills. UA today without signs of blood or infection. Patient denies urinary infection since last office visit or episode of gross hematuria. Ordered: Urnls Dip Stick Auto w/o Microscopy POC 60543 3. 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 Does not wear a pad. 4. Urinary urgency (R39.15: Urgency of urination) Patient is currently taking oxybutynin 15 mg ER daily. He is tolerating this well without side effects. States that this is effective for him, is able to make it to the bathroom. Would not recommend dose change at this time, given his results with his current dose. Continue current dose, call for refills 5. Prostate cancer screening (Z12.5: Encounter for screening for malignant neoplasm of prostate) PSA 10/29/21 - 1.07 Unable to find a more recent PSA than this. Patient notes that his PCP has previously checked. He does have a follow-up visit coming in December. He would like to have PCP check at that time. I had a lengthy discussion with the patient regarding the implications of his PSA level. I explained the merits and limitations of PSA screening including the very high prevalence of prostate cancer, significant variability in regards to aggressiveness, lack of initial symptoms when the disease is curable as well as PSA's lack of specificity for prostate cancer with the potential for harm, including over-diagnosis and over-treatment. I explained that the guidelines recommend no further prostate cancer testing be performed when life expectancy is less than 10-15 years. Given his age, it is generally recommended to forgo further testing, as the risks of intervention outweigh the potential benefits of survival/oncologic outcomes. Patient states that he would like to discuss with his PCP at the time of his annual wellness visit in December. Orders: XR Abdomen 1 View Follow-up With When Contact Information ISAAC Huston APRN, Orquidea Blue, [place], URL Additional Instructions: 1 year with AKBAR ESTRELLA MD, Demetri Sequeira, URL [facility] [address], (more content not included)... Normal [facility] Comment on above: Result Comment: Elec tronically Signed By: ISAAC Huston APRN, Orquidea Blue\.br\Date and Time Signed: 08/31/23 09:08 EDT RAD - MISCon 08-17-2023 RAD - MISC [id number] IFF Normal [facility] Office Visiton 01-27-2023 Follow-up visit [id number] Ralph Lam H 1945 M Date Provider Department Center 01/27/2023 Huy-SHALONDA RAI CARD [facility] No family history on file Level of Service:86843 CO OFFICE/OUTPATIENT ESTABLISHED MOD MDM 30-39 MIN Normal [facility] 36on 07-07-2022 36 Notes: Rx refused. N ot seen since December 2020. Normal [facility] BNPon 02-17-2022 Natriuretic peptide B (Bld) [Mass/Vol] 330.0 pg/mL Normal <=1,800.0 [facility] Comment on above: Performed By: #### B VICE PRESIDENT PRECISION MARKET INSIGHTS, TSH, BMP #### [facility] [address] [place] [address] Dr. Temo Mckeon CBC AUTO DIFFon 02-17-2022 BASO # 0.1 103/ul Normal 0.0-0.1 [facility] Comment on above: Performed By: #### C BC #### [facility] [address] [place] [address] Dr. Temo Mckeon Basophils/100 WBC (Bld) 0.4 % Normal 0.2-2.0 [facility] Comment on above: Performed By: #### C BC #### [facility] [address] [place] [address] Dr. Temo Mckeon EO # 0.3 103/ul Normal 0.0-0.7 [facility] Comment on above: Performed By: #### C BC #### [facility] [address] [address] [address] Temo Mckeon Eosinophils/100 WBC (Bld) 2.8 % Normal 0.9-7.0 [facility] Comment on above: Performed By: #### C BC #### [facility] [address] [place] [address] Dr. Temo Mckeon Erythrocyte distribution width (RBC) [Ratio] 13.5 % Normal 11.0-15.0 [facility] Comment on above: Performed By: #### C BC #### [facility] [address] [address] [address] Temo Mckeon Hematocrit (Bld) [Volume fraction] 38.5 % Critically low 42.0-54.0 [facility] Comment on above: Performed By: #### C BC #### [facility] [address] [address] [address] Temo Mckeon Hemoglobin (Bld) [Mass/Vol] 12.5 g/dL Critically low 14.0-18.0 [facility] Comment on above: Performed By: #### C BC #### [facility] [address] [address] [address] Temo Mckeon IG # 0.11 10e3/ul Critically high 0.00-0.03 [facility] Comment on above: Performed By: #### C BC #### [facility] [address] [place] [address] Dr. Temo Mckeon IG % 0.9 % Critically high 0.0-0.5 [facility] Comment on above: Performed By: #### C BC #### [facility] [address] [place] [address] Dr. Temo Mckeon LYMPH # 2.1 103/ul Normal 1.2-3.8 [facility] Comment on above: Performed By: #### C BC #### [facility] [address] [address] [address] Temo Mckeon Lymphocytes/100 WBC (Bld) 17.5 % Critically low 20.5-60.0 [facility] Comment on above: Performed By: #### C BC #### [facility] [address] [address] [address] Temo Mckeon MANUAL DIFF REQ NO Normal [facility] Comment on above: Performed By: #### C BC #### [facility] [address] [place] [address] Dr. Temo Mckeon MCH (RBC) [Entitic mass] 30.6 pg Normal 25.9-34.0 [facility] Comment on above: Performed By: #### C BC #### [facility] [address] [address] [address] Temo Mckeon MCHC (RBC) [Mass/Vol] 32.5 g/dL Normal 29.9-35.2 [facility] Comment on above: Performed By: #### C BC #### [facility] [address] [address] [address] Temo Mckeon MCV (RBC) [Entitic vol] 94.1 fL Critically high 80.0-94.0 [facility] Comment on above: Performed By: #### C BC #### [facility] [address] [address] [address] Temo Mckeon MONO # 0.9 103/ul Critically high 0.3-0.8 [facility] Comment on above: Performed By: #### C BC #### [facility] [address] [place] [address] Dr. Temo Mckeon Monocytes/100 WBC (Bld) 7.9 % Normal 1.7-12.0 [facility] Comment on above: Performed By: #### C BC #### [facility] [address] [address] [address] Temo Mckeon NEUT # 8.4 103/ul Critically high 1.4-6.5 [facility] Comment on above: Performed By: #### C BC #### [facility] [address] [place] [address] Dr. Temo Mckeon Neutrophils/100 WBC (Bld) 70.5 % Normal 43.0-75.0 [facility] Comment on above: Performed By: #### C BC #### [facility] [address] [place] [address] Dr. Temo Mckeon Platelet mean volume (Bld) [Entitic vol] 10.5 fL Normal 9.5-13.5 [facility] Comment on above: Performed By: #### C BC #### [facility] [address] [place] [address] Dr. Temo Mckeon PLT 172 103/ul Normal 150-450 [facility] Comment on above: Performed By: #### C BC #### [facility] [address] [address] [address] Temo Mckeon RBC 4.09 106/ul Critically low 4.70-6.10 [facility] Comment on above: Performed By: #### C BC #### [facility] [address] [address] [address] Temo Mckeon WBC 11.9 103/ul Critically high 4.0-11.0 [facility] Comment on above: Performed By: #### C BC #### [facility] [address] [address] [address] Temo Mckeon PROF CHEM 8 (BAS METB)on Anion gap [Moles/Vol] 14.2 mmol/L Normal [facility] Comment on above: Performed By: #### B VICE PRESIDENT PRECISION MARKET INSIGHTS, TSH, BMP #### [facility] [address] [place] [address] Dr. Temo Mckeon Calcium [Mass/Vol] 9.1 mg/dL Normal 8.5-10.1 [facility] Comment on above: Performed By: #### B VICE PRESIDENT PRECISION MARKET INSIGHTS, TSH, BMP #### [facility] [address] [address] [address] Temo Mckeon Chloride [Moles/Vol] 105 mmol/L Normal 98-107 [facility] [facility] Comment on above: Performed By: #### B VICE PRESIDENT PRECISION MARKET INSIGHTS, TSH, BMP #### [facility] [address] [address] [address] Temo Mckeon CO2 [Moles/Vol] 25.3 mmol/L Normal 21.0-32.0 [facility] Comment on above: Performed By: #### B VICE PRESIDENT PRECISION MARKET INSIGHTS, TSH, BMP #### [facility] [address] [address] [address] Temo Mckeon Creatinine [Mass/Vol] 1.72 mg/dL Critically high 0.70-1.30 [facility] Comment on above: Performed By: #### B VICE PRESIDENT PRECISION MARKET INSIGHTS, TSH, BMP #### [facility] [address] [address] [address] Temo Mckeon EGFR-AF KAZAKH 47 mL/min/1.73m2 Critically low >=60 [facility] Comment on above: Performed By: #### B VICE PRESIDENT PRECISION MARKET INSIGHTS, TSH, BMP #### [facility] [address] [place] [address] Dr. Temo Mckeon EGFR-NON AF KAZAKH 39 mL/min/1.73m2 Critically low >=60 [facility] Comment on above: Performed By: #### B VICE PRESIDENT PRECISION MARKET INSIGHTS, TSH, BMP #### [facility] [address] [place] [address] Dr. Temo Mckeon Glucose [Mass/Vol] 134 mg/dL Critically high 74-106 [facility] Comment on above: Performed By: #### B VICE PRESIDENT PRECISION MARKET INSIGHTS, TSH, BMP #### [facility] [address] [place] [address] Dr. Temo Mckeon Potassium [Moles/Vol] 4.5 mmol/L Normal 3.5-5.1 [facility] Comment on above: Performed By: #### B VICE PRESIDENT PRECISION MARKET INSIGHTS, TSH, BMP #### [facility] [address] [place] [address] Dr. Temo Mckeon Sodium [Moles/Vol] 140 mmol/L Normal 136-145 [facility] Comment on above: Performed By: #### B VICE PRESIDENT PRECISION MARKET INSIGHTS, TSH, BMP #### [facility] [address] [place] [address] Dr. Temo Mckeon Urea nitrogen [Mass/Vol] 36.0 mg/dL Critically high 7.0-18.0 [facility] Comment on above: Performed By: #### B VICE PRESIDENT PRECISION MARKET INSIGHTS, TSH, BMP #### [facility] [address] [place] [address] Dr. Temo Mckeon Urea nitrogen/Creatinine [Mass ratio] 20.9 mg/mg Normal [facility] Comment on above: Performed By: #### B VICE PRESIDENT PRECISION MARKET INSIGHTS, TSH, BMP #### [facility] [address] [place] [address] Dr. Temo Mckeon TSHon 02-17-2022 TSH 1.708 uIU/mL Normal 0.358-3.740 [facility] Comment on above: Performed By: #### B VICE PRESIDENT PRECISION MARKET INSIGHTS, TSH, BMP #### [facility] [address] [address] [address] Temo Mckeon XR KUB 1 VIEWon [...] RADU CHRISTENSEN Date: 2022-02-17 11:43 Normal [facility] METHYLMALONIC ACID (MMA)on 0 11-01-2021 Methylmalonic Acid, Serum 205 nmol/L Normal 0-378 [facility] Comment on above: Performed By: #### C BC #### [facility] [address] [place] [address] Dr. Temo Mckeon FOLATE ([facility])on Folate >20.0 Normal >3.0 [facility] Comment on above: Result Comment: A rum folate concentration of less than 3.1 ng/mL is considered to represent clinical deficiency. Performed By: #### B MP, ALT, LIPID #### [facility] [address] [address] [address] Temo Mckeon CBC AUTO DIFFon 10-29-2021 BASO # 0.1 103/ul Normal 0.0-0.1 [facility] Comment on above: Performed By: #### C BC #### [facility] [address] [place] [address] Dr. Temo Mckeon Basophils/100 WBC (Bld) 0.5 % Normal 0.2-2.0 [facility] Comment on above: Performed By: #### C BC #### [facility] [address] [place] [address] Dr. Temo Mckeon EO # 0.3 103/ul Normal 0.0-0.7 [facility] Comment on above: Performed By: #### C BC #### [facility] [address] [place] [address] Dr. Temo Mckeon Eosinophils/100 WBC (Bld) 3.3 % Normal 0.9-7.0 [facility] Comment on above: Performed By: #### C BC #### [facility] [address] [place] [address] Dr. Temo Mckeon Erythrocyte distribution width (RBC) [Ratio] 13.3 % Normal 11.0-15.0 [facility] Comment on above: Performed By: #### C BC #### [facility] [address] [place] [address] Dr. Temo Mckeon Hematocrit (Bld) [Volume fraction] 40.4 % Critically low 42.0-54.0 [facility] Comment on above: Performed By: #### C BC #### [facility] [address] [place] [address] Dr. Temo Mckeon Hemoglobin (Bld) [Mass/Vol] 13.4 g/dL Critically low 14.0-18.0 [facility] Comment on above: Performed By: #### C BC #### [facility] [address] [place] [address] Dr. Temo Mckeon IG # 0.06 10e3/ul Critically high 0.00-0.03 [facility] Comment on above: Performed By: #### C BC #### [facility] [address] [place] [address] Dr. Temo Mckeon IG % 0.6 % Critically high 0.0-0.5 [facility] Comment on above: Performed By: #### C BC #### [facility] [address] [place] [address] Dr. Temo Mckeon LYMPH # 2.2 103/ul Normal 1.2-3.8 [facility] Comment on above: Performed By: #### C BC #### [facility] [address] [place] [address] Dr. Temo Mckeon Lymphocytes/100 WBC (Bld) 22.6 % Normal 20.5-60.0 [facility] Comment on above: Performed By: #### C BC #### [facility] [address] [place] [address] Dr. Temo Mckeon MANUAL DIFF REQ NO Normal [facility] Comment on above: Performed By: #### C BC #### [facility] [address] [place] [address] Dr. Temo Mckeon MCH (RBC) [Entitic mass] 30.8 pg Normal 25.9-34.0 [facility] Comment on above: Performed By: #### C BC #### [facility] [address] [place] [address] Dr. Temo Mckeon MCHC (RBC) [Mass/Vol] 33.2 g/dL Normal 29.9-35.2 [facility] Comment on above: Performed By: #### C BC #### [facility] [address] [place] [address] Dr. Temo Mckeon MCV (RBC) [Entitic vol] 92.9 fL Normal 80.0-94.0 [facility] Comment on above: Performed By: #### C BC #### [facility] [address] [place] [address] Dr. Temo Mckeon MONO # 0.7 103/ul Normal 0.3-0.8 [facility] Comment on above: Performed By: #### C BC #### [facility] [address] [place] [address] Dr. Temo Mckeon Monocytes/100 WBC (Bld) 7.6 % Normal 1.7-12.0 [facility] Comment on above: Performed By: #### C BC #### [facility] [address] [place] [address] Dr. Temo Mckeon NEUT # 6.2 103/ul Normal 1.4-6.5 [facility] Comment on above: Performed By: #### C BC #### [facility] [address] [address] [address] Temo Mckeon Neutrophils/100 WBC (Bld) 65.4 % Normal 43.0-75.0 [facility] Comment on above: Performed By: #### C BC #### [facility] [address] [address] [address] Temo Mckeon Platelet mean volume (Bld) [Entitic vol] 10.5 fL Normal 9.5-13.5 [facility] Comment on above: Performed By: #### C BC #### [facility] [address] [place] [address] Dr. Temo Mckeon PLT 169 103/ul Normal 150-450 [facility] Comment on above: Performed By: #### C BC #### [facility] [address] [place] [address] Dr. Temo Mckeon RBC 4.35 106/ul Critically low 4.70-6.10 [facility] Comment on above: Performed By: #### C BC #### [facility] [address] [place] [address] Dr. Temo Mckeon WBC 9.5 103/ul Normal 4.0-11.0 [facility] Comment on above: Performed By: #### C BC #### [facility] [address] [place] [address] Dr. Temo Mckeon FERRITINon 10-29-2021 Ferritin [Mass/Vol] 423.0 ng/mL Critically high 26.0-388.0 [facility] Comment on above: Performed By: #### C BC #### [facility] [address] [place] [address] Dr. Temo Mckeon IRON AND TIBCon 10-29-2021 % SATURATION 25.6 % Normal [facility] Comment on above: Performed By: #### C BC #### [facility] [address] [place] [address] Dr. Temo Mckeon Iron [Mass/Vol] 79.0 ug/dL Normal 65.0-175.0 [facility] Comment on above: Performed By: #### C BC #### [facility] [address] [address] [address] Temo Mckeon TIBC DIRECT 308.0 ug/dL Normal 250.0-450.0 [facility] Comment on above: Performed By: #### C BC #### [facility] [address] [address] [address] Temo Mckeon LIPID PROFILEon 10-29-2021 CHOL-HDL RATIO NORM SEE BELOW Normal [facility] Comment on above: Result Comment: 3.3 - 4.4 LOW RISK 4.4 - 7.1 AVERAGE RISK 7.1 - 11.0 MODERATE RISK >11.0 HIGH RISK Performed By: #### B MP, ALT, LIPID #### [facility] [address] [address] [address] Temo Mckeon Cholesterol [Mass/Vol] 93 mg/dL Normal <=200 [facility] Comment on above: Performed By: #### B MP, ALT, LIPID #### [facility] [address] [address] [address] Temo Mckeon Cholesterol in HDL [Mass/Vol] 40 mg/dL Normal 40-60 [facility] Comment on above: Performed By: #### B MP, ALT, LIPID #### [facility] [address] [address] [address] Temo Mckeon Cholesterol in LDL [Mass/Vol] 35.4 mg/dL Normal [facility] Comment on above: Performed By: #### B MP, ALT, LIPID #### [facility] [address] [address] [address] Temo Mckeon Cholesterol.total/C holesterol in HDL [Mass ratio] 2.3 {ratio} Normal [facility] Comment on above: Performed By: #### B MP, ALT, LIPID #### [facility] [address] [address] [address] Temo Mckeon HDL NORMAL > or = 60 mg/dl - LO W CARDIOVASCULAR RISK <40 mg/dl - HIGH CARDIOVASCULAR RISK Normal [facility] Comment on above: Performed By: #### B MP, ALT, LIPID #### [facility] [address] [place] [address] Dr. Temo Mckeon LDL CALC NORMAL SEE BELOW Normal [facility] Comment on above: Result Comment: <100 mg/dl OPTIMAL 100 - 129 mg/dl NEAR OR ABOVE OPTIMAL 130 - 159 mg/dl BORDERLINE HIGH 160 - 189 mg/dl HIGH >190 mg/dl VERY HIGH Performed By: #### B MP, ALT, LIPID #### [facility] [address] [address] [address] Temo Mckeon Triglyceride [Mass/Vol] 88 mg/dL Normal <=150 [facility] Comment on above: Performed By: #### B MP, ALT, LIPID #### [facility] [address] [place] [address] Dr. Temo Mckeon VLDL CALC 17.6 mg/dL Normal [facility] Comment on above: Performed By: #### B MP, ALT, LIPID #### [facility] [address] [place] [address] Dr. Temo Mckeon PROF CHEM 8 (BAS METB)on Anion gap [Moles/Vol] 14.6 mmol/L Normal [facility] Comment on above: Performed By: #### B MP, ALT, LIPID #### [facility] [address] [place] [address] Dr. Temo Mckeon Calcium [Mass/Vol] 8.8 mg/dL Normal 8.5-10.1 [facility] Comment on above: Performed By: #### B MP, ALT, LIPID #### [facility] [address] [place] [address] Dr. Temo Mckeon Chloride [Moles/Vol] 106 mmol/L Normal 98-107 [facility] Comment on above: Performed By: #### B MP, ALT, LIPID #### [facility] [address] [place] [address] Dr. Temo Mckeon CO2 [Moles/Vol] 23.8 mmol/L Normal 21.0-32.0 [facility] Comment on above: Performed By: #### B MP, ALT, LIPID #### [facility] [address] [address] [address] Temo Mckeon Creatinine [Mass/Vol] 1.57 mg/dL Critically high 0.70-1.30 [facility] Comment on above: Performed By: #### B MP, ALT, LIPID #### [facility] [address] [address] [address] Temo Mckeon EGFR-AF KAZAKH 52 mL/min/1.73m2 Critically low >=60 [facility] Comment on above: Performed By: #### B MP, ALT, LIPID #### [facility] [address] [address] [address] Temo Mckeon EGFR-NON AF KAZAKH 43 mL/min/1.73m2 Critically low >=60 [facility] Comment on above: Performed By: #### B MP, ALT, LIPID #### [facility] [address] [place] [address] Dr. Temo Mckeon Glucose [Mass/Vol] 148 mg/dL Critically high 74-106 [place] Comment on above: Performed By: #### B MP, ALT, LIPID #### [facility] [address] [address] [address] Temo Mckeon Potassium [Moles/Vol] 4.4 mmol/L Normal 3.5-5.1 [facility] Comment on above: Performed By: #### B MP, ALT, LIPID #### [facility] [address] [address] [address] Temo Mckeon Sodium [Moles/Vol] 140 mmol/L Normal 136-145 [facility] Comment on above: Performed By: #### B MP, ALT, LIPID #### [facility] [address] [address] [address] Temo Mckeon Urea nitrogen [Mass/Vol] 31.0 mg/dL Critically high 7.0-18.0 [facility] Comment on above: Performed By: #### B MP, ALT, LIPID #### [facility] [address] [address] [address] Temo Mckeon Urea nitrogen/Creatinine [Mass ratio] 19.7 mg/mg Normal [facility] Comment on above: Performed By: #### B MP, ALT, LIPID #### [facility] [address] [address] [address] Temo Mckeon SGPTon 10-29-2021 ALT [Catalytic activity/Vol] 39 U/L Normal 16-63 [facility] Comment on above: Performed By: #### B MP, ALT, LIPID #### [facility] [address] [place] [address] Dr. Temo Mckeon VITAMIN B12on 10-29-2021 Cobalamin (Vitamin B12) [Mass/Vol] 675.0 pg/mL Normal 193.0-986.0 [facility] Comment on above: Performed By: #### C BC #### [facility] [address] [place] [address] Dr. Temo Mckeon XR KUB 1 VIEWon [...] MARTA HALE Date: 2021-08-29 19:34 Normal [facility] CBC AUTO DIFFon 08-21-2021 BASO # 0.0 103/ul Normal 0.0-0.1 [facility] Comment on above: Performed By: #### C BC #### [facility] [address] [place] [address] Dr. Temo Mckeon Basophils/100 WBC (Bld) 0.3 % Normal 0.2-2.0 [facility] Comment on above: Performed By: #### C BC #### [facility] [address] [place] [address] Dr. Temo Mckeon EO # 0.3 103/ul Normal 0.0-0.7 [facility] Comment on above: Performed By: #### C BC #### [facility] [address] [place] [address] Dr. Temo Mckeon Eosinophils/100 WBC (Bld) 3.2 % Normal 0.9-7.0 [facility] Comment on above: Performed By: #### C BC #### [facility] [address] [place] [address] Dr. Temo Mckeon Erythrocyte distribution width (RBC) [Ratio] 13.5 % Normal 11.0-15.0 [facility] Comment on above: Performed By: #### C BC #### [facility] [address] [place] [address] Dr. Temo Mckeon Hematocrit (Bld) [Volume fraction] 38.8 % Critically low 42.0-54.0 [facility] Comment on above: Performed By: #### C BC #### [facility] [address] [place] [address] Dr. Temo Mckeon Hemoglobin (Bld) [Mass/Vol] 12.8 g/dL Critically low 14.0-18.0 [facility] Comment on above: Performed By: #### C BC #### [facility] [address] [place] [address] Dr. Temo Mckeon IG # 0.05 10e3/ul Critically high 0.00-0.03 [facility] Comment on above: Performed By: #### C BC #### [facility] [address] [place] [address] Dr. Temo Mckeon IG % 0.5 % Normal 0.0-0.5 [facility] Comment on above: Performed By: #### C BC #### [facility] [address] [place] [address] Dr. Temo Mckeon LYMPH # 1.8 103/ul Normal 1.2-3.8 [facility] Comment on above: Performed By: #### C BC #### [facility] [address] [place] [address] Dr. Temo Mckeon Lymphocytes/100 WBC (Bld) 19.6 % Critically low 20.5-60.0 [facility] Comment on above: Performed By: #### C BC #### [facility] [address] [place] [address] Dr. Temo Mckeon MANUAL DIFF REQ NO Normal [facility] Comment on above: Performed By: #### C BC #### [facility] [address] [place] [address] Dr. Temo Mckeon MCH (RBC) [Entitic mass] 31.1 pg Normal 25.9-34.0 [facility] Comment on above: Performed By: #### C BC #### [facility] [address] [place] [address] Dr. Temo Mckeon MCHC (RBC) [Mass/Vol] 33.0 g/dL Normal 29.9-35.2 [facility] Comment on above: Performed By: #### C BC #### [facility] [address] [place] [address] Dr. Temo Mckeon MCV (RBC) [Entitic vol] 94.4 fL Critically high 80.0-94.0 [facility] Comment on above: Performed By: #### C BC #### [facility] [address] [place] [address] Dr. Temo Mckeon MONO # 0.7 103/ul Normal 0.3-0.8 [facility] Comment on above: Performed By: #### C BC #### [facility] [address] [place] [address] Dr. Temo Mckeon Monocytes/100 WBC (Bld) 7.5 % Normal 1.7-12.0 [facility] Comment on above: Performed By: #### C BC #### [facility] [address] [place] [address] Dr. Temo Mckeon NEUT # 6.4 103/ul Normal 1.4-6.5 [facility] Comment on above: Performed By: #### C BC #### [facility] [address] [place] [address] Dr. Temo Mckeon Neutrophils/100 WBC (Bld) 68.9 % Normal 43.0-75.0 [facility] Comment on above: Performed By: #### C BC #### [facility] [address] [address] [address] Temo Mckeon Platelet mean volume (Bld) [Entitic vol] 10.2 fL Normal 9.5-13.5 [facility] Comment on above: Performed By: #### C BC #### [facility] [address] [address] [address] Temo Mckeon PLT 160 103/ul Normal 150-450 [facility] Comment on above: Performed By: #### C BC #### [facility] [address] [address] [address] Temo Mckeon RBC 4.11 106/ul Critically low 4.70-6.10 [facility] Comment on above: Performed By: #### C BC #### [facility] [address] [address] [address] Temo Mckeon WBC 9.3 103/ul Normal 4.0-11.0 [facility] Comment on above: Performed By: #### C BC #### [facility] [address] [address] [address] Temo Mcke[facility] SARS-CoV-2 (COVID-19) RNA PRADEEP+probe Ql (Unsp spec) Not detected Normal NOT DETECTED [facility] Comment on above: Result Comment: This test is not yet approved or cleared by the [place] FDA. When there are no FDA-approved or cleared tests available, and other criteria are met, FDA can make tests available under an emergency access mechanism called an Emergency Use Authorization (EUA). The EUA for this test is supported by the [place] of Health and Human Service's (HHS's) declaration [...] SARS-CoV-2. Performed By: #### C BC #### [facility] [address] [place] [address] Dr. Temo Mckeon PROF CHEM 8 (BAS METB)on Anion gap [Moles/Vol] 12.4 mmol/L Normal [facility] Comment on above: Performed By: #### C BC #### [facility] [address] [place] [address] Dr. Temo Mckeon Calcium [Mass/Vol] 8.6 mg/dL Normal 8.5-10.1 [facility] Comment on above: Performed By: #### C BC #### [facility] [address] [place] [address] Dr. Temo Mckeon Chloride [Moles/Vol] 105 mmol/L Normal 98-107 [facility] Comment on above: Performed By: #### C BC #### [facility] [address] [place] [address] Dr. Temo Mckeon CO2 [Moles/Vol] 27.0 mmol/L Normal 22.0-30.0 [facility] Comment on above: Performed By: #### C BC #### [facility] [address] [place] [address] Dr. Temo Mckeon Creatinine [Mass/Vol] 1.57 mg/dL Critically high 0.66-1.25 [facility] Comment on above: Performed By: #### C BC #### [facility] [address] [place] [address] Dr. Temo cMkeon EGFR-AF KAZAKH 52 mL/min/1.73m2 Critically low >=60 [facility] Comment on above: Performed By: #### C BC #### [facility] [address] [place] [address] Dr. Temo Mckeon EGFR-NON AF KAZAKH 43 mL/min/1.73m2 Critically low >=60 [facility] Comment on above: Performed By: #### C BC #### [facility] [address] [place] [address] Dr. Temo Mckeon Glucose [Mass/Vol] 145 mg/dL Critically high 74-106 [facility] Comment on above: Performed By: #### C BC #### [facility] [address] [place] [address] Dr. Temo Mckeon Potassium [Moles/Vol] 4.4 mmol/L Normal 3.4-5.0 [facility] Comment on above: Performed By: #### C BC #### [facility] [address] [place] [address] Dr. Temo Mckeon Sodium [Moles/Vol] 140 mmol/L Normal 137-145 [facility] Comment on above: Performed By: #### C BC #### [facility] [address] [place] [address] Dr. Temo Mckeon Urea nitrogen [Mass/Vol] 32.0 mg/dL Critically high 7.0-18.0 [facility] Comment on above: Performed By: #### C BC #### [facility] [address] [place] [address] Dr. Temo Mckeon Urea nitrogen/Creatinine [Mass ratio] 20.4 mg/mg Normal [facility] Comment on above: Performed By: #### C BC #### [facility] [address] [place] [address] Dr. Temo Mckeon PROTIMEon 08-21-2021 INR Coag (PPP) [Relative time] 1.04 {INR} Normal [facility] Comment on above: Performed By: #### C BC #### [facility] [address] [place] [address] Dr. Temo Mckeon INR GUIDELINES SEE BELOW Normal [facility] Comment on above: Result Comment: APPLE RED INR: 2.0 - 3.0 CONDITIONS NOT LISTED BELOW 2.5 - 3.5 FOR PROSTHETIC HEART VALVE REPLACEMENT 2.5 - 3.5 RECURRENT THROMBOSIS Performed By: #### C BC #### [facility] [address] [place] [address] Dr. Temo Mckeon PT Coag (PPP) [Time] 11.2 s Normal 9.0-11.6 [facility] Comment on above: Performed By: #### C BC #### [facility] [address] [place] [id number] [address] Temo Mckeon PTTon 08-21-2021 aPTT Coag (Bld) [Time] 25.2 s Normal 22.3-36.2 [facility] Comment on above: Performed By: #### C BC #### [facility] [address] [place], [place] [address] Dr. Temo Mckeon XR KUB 1 VIEWon [...] TANISHA MATOS Date: 2021-07-29 09:21 Normal [facility] Covid-19 PCR ([facility])on 04-10 SARS-CoV-2 (COVID-19) RNA PRADEEP+probe Ql (Unsp spec) Not detected Normal NOT DETECTED [facility] Comment on above: Result Comment: This test is not yet approved or cleared by the [place] FDA. When there are no FDA-approved or cleared tests available, and other criteria are met, FDA can make tests available under an emergency access mechanism called an Emergency Use Authorization (EUA). The EUA for this test is supported by the [place] of Health and Human Service's (HHS's) declaration [...] consistent with SARS-CoV-2. Performed By: #### C VDTBH #### [facility] [address] angio chest PE protocolon 03-07-2021 CT angio chest PE protocol [facility] Main [address] [address] [address] Scan Report Signed Patient: Lenin Lam MR#: [id number] 71 : 1945 Acct:[id number] Age/Sex: 75 / M ADM Date: 03/07/21 Loc: CT Room: Type: [facility] Attending Dr: Erika Bender MD Ordering [...] Balwinder Zambrano M.D.03/07/2021 2:01 PM Dictation Location: [place] [address] Transcribed By: [facility] 03/07/21 1401 Dictated By: Balwinder Zambrano DO 03/07/21 1359 Signed By: 03/07/21 140 [facility] ECH echo transthoracicon ECH echo transthoracic [facility] [place] [place] [address] Echocardiogram Signed Patient: Lenin Lam MR#: [id number] 71 : 1945 Acct:[id number] Age/Sex: 75 / M ADM Date: 03/07/21 Loc: CT Room: Type: [facility] Attending Dr: Erika Bender MD Ordering Provider: Erika Bender MD Date of Service: 03/07/21 ECH/ECH echo transthoracic: DYSPNEA Copies to: MD Genesis Shabazz DO BSA: 2.3 m2 BP: 174/95 mmHg HR: [...] systole: 5.0 mmHg Transcribed By: JULISSA 03/07/21 1449 Dictated By: Genesis Thomas DO 03/07/21 1351 Signed By: 03/07/21 1449 [facility] ISTAT XRay CREon 03-07-2021 Creatinine [Mass/Vol] 1.5 mg/dL High 0.6-1.3 [facility] Comment on above: Result Comment: ER/E SD physician is notified/shown all ISTAT results. Critical values may be confirmed by laboratory testing if deemed necessary by ER attending doctor. Performed By: #### I SCRE #### [address] Point of Care testing , ISTAT GFR ( 55 [facility] Comment on above: Result Comment: GFR estimated reference range: According to KDOQI guidelines, <60 ml/min/1.73m2 is sufficient to diagnose a patient with chronic kidney disease. PERFORMED BY: [place] [address] PATHOLOGIST [employer] TECHNICIAN POOJA MYERS M.D. Performed By: #### I SCRE #### [address] Point of Care testing , ISTAT GFR (Non- Am 46 [facility] Comment on above: Performed By: #### I SCRE #### [address] Point of Care testing , Vital Signs Date Time Vital Sign Value Performing Clinician Facility 02-01-2023 09:30-0400 Body height 162.56 cm Leo Garcias Other [facility] [employer] Other 02-01-2023 09:30-0400 Body mass index (BMI) [Ratio] 49.6 kg/m2 Leo Garcias Other [facility] Other 02-01-2023 09:30-0400 Body weight 131.09 kg Leo Ball Other [facility] Other 02-01-2023 09:30-0400 Diastolic blood pressure 83 mm[Hg] Leo Ball Other [facility] Other 02-01-2023 09:30-0400 Respiratory rate 20 /min Leo Ball Other [facility] Other 02-01-2023 09:30-0400 SaO2% (BldA) [Mass fraction] 97 % Leo Ball Other [facility] Other 02-01-2023 09:30-0400 Systolic blood pressure 147 mm[Hg] Leo Ball Other [facility] Other 10-30-2022 09:00-0400 Body height 162.56 cm Leo Ball Other [facility] Other 10-30-2022 09:00-0400 Body mass index (BMI) [Ratio] 50.67 kg/m2 Leo Ball Other [facility] Other 10-30-2022 09:00-0400 Body weight 133.9 kg Leo Ball Other [facility] Other 10-30-2022 09:00-0400 Diastolic blood pressure 68 mm[Hg] Leo Ball Other [facility] Other 10-30-2022 09:00-0400 Respiratory rate 20 /min Leo Ball Other [facility] Other 10-30-2022 09:00-0400 SaO2% (BldA) [Mass fraction] 98 % Leo Ball Other [facility] [employer] Other 10-30-2022 09:00-0400 Systolic blood pressure 121 mm[Hg] Leo Ball Other [facility] Other 08-24-2022 10:32-0400 Blood Pressure Location Demetri ESTRELLA [facility] 08-24-2022 10:32-0400 Diastolic blood pressure 73 mm[Hg] Demetri ESTRELLA [facility] 08-24-2022 10:32-0400 Heart rate 59 /min Demetri ESTRELLA [facility] 08-24-2022 10:32-0400 Respiratory rate 16 /min Demetri ESTRELLA [facility] 08-24-2022 10:32-0400 Systolic blood pressure 125 mm[Hg] Demetri ESTRELLA [facility] 06-30-2022 09:00-0500 Body height 162.56 cm Leo Ball Other [facility] [employer] Other 06-30-2022 09:00-0500 Body mass index (BMI) [Ratio] 51.52 kg/m2 Leo Ball Other [facility] [employer] Other 06-30-2022 09:00-0500 Body weight 136.17 kg Leo Ball Other [facility] Other 06-30-2022 09:00-0500 Diastolic blood pressure 84 mm[Hg] Leo Ball Other [facility] Other 06-30-2022 09:00-0500 Respiratory rate 20 /min Leo Ball Other [facility] [employer] Other 06-30-2022 09:00-0500 Systolic blood pressure 128 mm[Hg] Leo Garcias Other [facility] [employer] Other 02-23-2022 11:07-0400 Blood Pressure Location Demetri ESTRELLA [facility] 02-23-2022 11:07-0400 Diastolic blood pressure 74 mm[Hg] Demetri ESTRELLA [facility] 02-23-2022 11:07-0400 Heart rate 76 /min Demetri ESTRELLA [facility] 02-23-2022 11:07-0400 Respiratory rate 16 /min Demetri ESTRELLA [facility] 02-23-2022 11:07-0400 Systolic blood pressure 128 mm[Hg] Demetri ESTRELLA [facility] 08-04-2021 08:51-0400 Blood Pressure Location Demetri ESTRELLA [facility] 08-04-2021 08:51-0400 Diastolic blood pressure 72 mm[Hg] Demetri ESTRELLA [facility] 08-04-2021 08:51-0400 Heart rate 63 /min Demetri ESTRELLA [facility] 08-04-2021 08:51-0400 Respiratory rate 16 /min Demetri ESTRELLA [facility] 08-04-2021 08:51-0400 Systolic blood pressure 121 mm[Hg] Demetri ESTRELLA [facility] 04-01-2021 12:45-0500 Body height 162.56 cm Erika Bender Other [facility] Other 04-01-2021 12:45-0500 Body mass index (BMI) [Ratio] 51.15 kg/m2 Erika Bender Other [facility] Other 04-01-2021 12:45-0500 Body temperature 97.6 [degF] Erika Bender Other [facility] Other 04-01-2021 12:45-0500 Body weight 135.17 kg Erika Bender Other [facility] Other 04-01-2021 12:45-0500 Diastolic blood pressure 68 mm[Hg] Erika Bender Other [facility] Other 04-01-2021 12:45-0500 Respiratory rate 20 /min Erika Bender Other [facility] Other 04-01-2021 12:45-0500 SaO2% (BldA) [Mass fraction] 97 % Erika Bender Other [facility] Other 04-01-2021 12:45-0500 Systolic blood pressure 140 mm[Hg] Erika Bender Other [facility] Other 03-04-2021 16:15-0400 Body height 162.56 cm Erika Bender Other [facility] Other 03-04-2021 16:15-0400 Body mass index (BMI) [Ratio] 51.15 kg/m2 Erika Bender Other [facility] Other 03-04-2021 16:15-0400 Body temperature 98.3 [degF] Erika Bender Other [facility] Other 03-04-2021 16:15-0400 Body weight 135.17 kg Erika Bender Other [facility] Other 03-04-2021 16:15-0400 Diastolic blood pressure 68 mm[Hg] Erika Bender Other [facility] Other 03-04-2021 16:15-0400 Respiratory rate 20 /min Erika Bender Other [facility] Other 03-04-2021 16:15-0400 SaO2% (BldA) [Mass fraction] 97 % Erika Bender Other [facility] Other 03-04-2021 16:15-0400 Systolic blood pressure 148 mm[Hg] Erika Bender Other [facility] Other Encounters Encounter Date Encounter Type Care Provider Facility Start: 08-31-2023 End: 09-01-2023 ambulatory Orquidea Huston Facility:[facility] Start: 08-31-2023 End: 08-31-2023 Patient encounter procedure Orquidea Huston [facility] Start: 07-05-2023 End: 07-06-2023 ambulatory Mary Ann Villalobos MD Facility:[facility] Start: 06-21-2023 End: 06-22-2023 ambulatory [facility] Start: 05-20-2023 End: 05-20-2023 ambulatory CLAUDETTE RICHARDSON Not Available Start: 03-08-2023 End: 03-09-2023 ambulatory [facility] Start: 02-08-2023 End: 02-09-2023 ambulatory [facility] Start: 02-01-2023 End: 02-01-2023 ambulatory Leo Garcias Other [facility] Other Start: 02-01-2023 Office outpatient vi sit 25 minutes Leo Garcias [facility] Start: 01-27-2023 End: 01-27-2023 ambulatory AB [facility] Start: 01-13-2023 End: 01-13-2023 ambulatory Leo Dieter Other [facility] Other Start: 01-13-2023 Telephone encounter Leo CHILDRESS [facility] Start: 11-09-2022 End: 11-09-2022 ambulatory Leo Garcias Other [facility] Other Start: 11-09-2022 Telephone encounter Leo CHILDRESS G [facility] Start: 10-30-2022 End: 10-30-2022 ambulatory Leo Garcias Other [facility] Other Start: 10-30-2022 Patient encounter procedure Leo Garcias [facility] Start: 08-24-2022 End: 08-24-2022 Patient encounter procedure Demetri ESTRELLA [facility] Start: 07-08-2022 End: 07-08-2022 ambulatory Leo Garcias Other [facility] Other Start: 07-08-2022 Telephone encounter Leo CHILDRESS Dieter [facility] Start: 06-30-2022 End: 06-30-2022 ambulatory Leo Garcias Other [facility] Other Start: 06-30-2022 Office outpatient vi sit 25 minutes Leo Garcias [facility] Start: 02-23-2022 End: 02-23-2022 Patient encounter procedure Demetri ESTRELLA [facility] Start: 02-17-2022 End: 02-18-[address] LEO GARCIAS Facility:[facility] Start: 10-29-2021 End: 10-30-[address] LEO GARCIAS Facility:[facility] Start: 10-22-2021 Adult health examination Louis Garcias Other [facility] Other Start: 08-28-2021 End: 08-28-[address] DEMETRI ESTRELLA Facility:[facility] Start: 08-25-2021 Encounter for preprocedural cardiovascular examination DR DEMETRI ESTRELLA [facility] Start: 08-25-2021 Encounter for preprocedural laboratory examination DR DEMETRI ESTRELLA [facility] Start: 08-25-[address] DEMETRI ESTRELLA [facility] ity:[facility] Start: 08-21-2021 End: 08-22-[address] DEMETRI ESTRELLA Facility:[facility] Start: 08-21-2021 End: 08-22-2021 Encounter for preprocedural cardiovascular examination DR DEMETRI ESTRELLA Facility:[facility] Start: 08-04-2021 End: 08-04-2021 Patient encounter procedure Demetri ESTRELLA [facility] Start: 07-29-2021 End: 07-30-[address] DEMETRI ESTRELLA Facility:[facility] Start: 05-05-2021 End: 05-05-[address] LEO GARCIAS Facility:[facility] Start: 04-01-2021 End: 04-01-2021 ambulatory Erika Bender Other [facility] Other Start: 04-01-2021 Office outpatient vi sit 15 minutes Kamjamarcus Bender [facility] Start: 03-04-2021 Office outpatient ne w 45 minutes Kamjamarcus Bender [facility] Start: 08-28-2019 Preoperative cardiovascular examination Leo Garcias Other [facility] Other Start: 07-06-2018 End: 07-07-2018 Patient encounter procedure DEFAULT PHYSICIAN Facility:[facility] Start: 07-04-2018 End: 07-05-2018 Patient encounter procedure DEFAULT PHYSICIAN Facility:[facility] Start: 07-01-2018 End: 07-02-2018 Patient encounter procedure DEFAULT PHYSICIAN Facility:[facility] Procedures Date Procedure Procedure Detail Performing Clinician Start: 10-29-[address] BETZY GARCIAS Comment on above: Performed By: #### C BC #### [facility] [address] [place] [address] Dr. Temo Mckeon Start: 08-28-2021 Extracorporeal shock wave lithotripsy of calculus of kidney Demetri ESTRELLA Start: 01-26-2019 Cystoscopy Demetri MARIE TEROsmar Start: 01-05-2019 Cystoscopy Demetri MARIE TERS Start: 12-16-2018 Preoperative cardiov ascular examination Leo Garcias Other Start: 08-23-2015 General examination of patient Leo Garcias Other Start: 08-23-2015 Screening for malign ant neoplasm of colon Leo Garcias Other Start: 08-23-2015 Screening for malign ant neoplasm of prostate Leo Garcias Other Start: 01-31-2014 Pre-surgery evaluation Leo Gracias Other Depression screening Drake Garcias Other Screening for malign ant neoplasm of prostate Leo Garcias Other Immunizations Immunization Date Immunization Notes Care Provider Caitie granda 02-01-2023 influenza, high dose seasonal, preservative-free Leo Garcias Other [facility] Other 03-23-2022 COVID-19 Pfizer (bivalent) Leo Garcias Other [facility] Other 02-24-2022 influenza virus vaccine, split virus (incl. purified surface antigen) Leo Garcias Other [facility] Other 02-24-2022 influenza, high dose seasonal, preservative-free Leo Garcias Other [facility] Other 03-26-2021 SARS-CoV-2 (COVID-19 ) mRNA BNT-162b2 vax Demetri [employer] [facility] Comment on above: Result Comment: 2021: [id number] 02-21-2021 influenza virus vaccine, split virus (incl. purified surface antigen) Leo Garcias Other [facility] Other 02-07-2021 influenza virus vaccine, unspecified formulation Demetri ESTRELLA [facility] 07-30-2020 COVID-19 Vaccine Pfi zer - Documentation Purposes Only Erika Bender Other [facility] 07-08-2020 COVID-19 Vaccine Pfi zer - Documentation Purposes Only Erika Bender Other [facility] 05-10-2020 SARS-CoV-2 (COVID-19 ) mRNA BNT-162b2 vax Demetri [employer] [facility] Comment on above: Result Comment: pt h as had 3 shots to date 02-29-2020 influenza virus vaccine, split virus (incl. purified surface antigen) Leo Garcias Other [facility] Other 02-16-2019 influenza virus vaccine, split virus (incl. purified surface antigen) Leo Garcias Other [facility] Other 01-24-2018 influenza virus vaccine, split virus (incl. purified surface antigen) Leo Garcias Other [facility] Other 01-24-2018 influenza virus vaccine, unspecified formulation Demetrirafael ESTRELLA [facility] 01-24-2018 pneumococcal Conjuga te, unspecified formulation; Translations: [Need for prophylactic vaccination against Streptococcus pneumoniae (pneumococcus)] Leo Garcias Other [facility] Other 01-24-2018 pneumococcal polysaccharide vaccine, 23 valent Demetri ESTRELLA [facility] 02-18-2017 influenza virus vaccine, split virus (incl. purified surface antigen) Leo Garcias Other [facility] Other 02-18-2017 influenza virus vaccine, unspecified formulation Demetri ESTRELLA [facility] 02-12-2016 influenza virus vaccine, split virus (incl. purified surface antigen) Leo Garcias Other [facility] Other 02-12-2016 influenza virus vaccine, unspecified formulation Demetri ESTRELLA [facility] 02-28-2015 tetanus and diphther ia toxoids, adsorbed, preservative free, for adult use (5 Lf of tetanus toxoid and 2 Lf of diphtheria toxoid) Leo Garcias Other [facility] Other 02-28-2015 pneumococcal conjuga te vaccine, 13 valent Leo Garcias Other [facility] Other 02-16-2014 tetanus and diphther ia toxoids, adsorbed, preservative free, for adult use (5 Lf of tetanus toxoid and 2 Lf of diphtheria toxoid) Leo Garcias Other [facility] Other 02-08-2013 tetanus and diphther ia toxoids, adsorbed, preservative free, for adult use (5 Lf of tetanus toxoid and 2 Lf of diphtheria toxoid) Leo Garcias Other [facility] Other 02-17-2012 tetanus and diphther ia toxoids, adsorbed, preservative free, for adult use (5 Lf of tetanus toxoid and 2 Lf of diphtheria toxoid) Leo Garcias Other [facility] Other 02-13-2009 pneumococcal polysaccharide vaccine, 23 valent Leo Garcias Other [facility] Other 10-17-2003 Td(adult) unspecifie d formulation Demetri ESTRELLA [facility] Payers Date Payer Category Payer Medicare 2022 Private Health Insurance 1958 Medicare [id number] 2.1 [id number] 1959 Private Health Insurance [id number] 1945 Unknown [id number] 2.16.8 [id number] 1945 Unknown [id number] 2.16.8 40.1.268019.3.579.2.647 1945 Unknown [id number] 2.16.8 40.1.855194.3.579.2.647 1945 Unknown [id number] 2.16.84 0.1.031789.3.579.2.593 1945 Unknown [id number] 2.16.84 0.1.445765.3.579.2.593 1945 Unknown [id number] 2.16.84 0.1.164627.3.579.2.593 1945 Unknown [id number] 2.16.84 0.1.465528.3.579.2.593 1945 Unknown [id number] 2.16.84 0.1.154479.3.579.2.593 1945 Unknown [id number] 2.16.84 0.1.091291.3.579.2.593 1945 Unknown [id number] 2.16.84 0.1.781134.3.579.2.593 1945 Unknown [id number] 2.16.84 0.1.547156.3.579.2.593 1945 Unknown [id number] 2.16.84 0.1.071674.3.579.2.1259 1945 Unknown [id number] 2.16. 840.1.192240.3.579.2.196 1945 Unknown [id number] 2.16. 840.1.648553.3.579.2.196 1945 Unknown [id number] 2.16. 840.1.282392.3.579.2.196 1945 Unknown [id number] 2.16. 840.1.746429.3.579.2.196 1945 Unknown [id number] 2.16.8 40.1.487011.3.579.2.727 Unknown Social History Date Type Detail Facility Start: 01-30-2021 End: 08-31-2023 Tobacco smoking status Never smoked tobacco (finding) [facility] Other Sex Assigned At Male [facility] Other Tobacco smoking status Never [facility] Functional Status Date Assessment Result Facility 08-31-2023 Functional Status N/A [facility] 08-24-2022 Functional Status N/A [facility] 02-23-2022 Functional Status N/A [facility] Clinical Notes 12-09-2020 to 08-31-2023 Note Date & Type Note Facility 08-31-2023 Hospital Discharge instructions Patient Education 08/31/2023 09:07:51 Benign Prostatic Hyperplasia Benign Prostatic Hyperplasia Benign prostatic hyperplasia (BPH) is an enlarged prostate gland that is caused by the normal aging process. The prostate may get bigger as a man gets older. The condition is not caused by cancer. The prostate is a walnut-sized gland that is involved in the production of semen. It is located in front of the rectum and below the bladder. The bladder stores urine. The urethra carries stored urine out of the body. An enlarged prostate can press on the urethra. This can make it harder to pass urine. The buildup of urine in the bladder can cause infection. Back pressure and infection may progress to bladder damage and kidney (renal) failure. What are the causes? This condition is part of the normal aging process. However, not all men develop problems from this condition. If the prostate enlarges away from the urethra, urine flow will not be blocked. If it enlarges toward the urethra and compresses it, there will be problems passing urine. What increases the risk? This condition is more likely to develop in men older than 50 years. What are the signs or [...] urethra. Follow these instructions at home: Take haws-ait-uuyecee and prescription medicines only as told by your health care provider. Monitor your symptoms for any changes. Contact your health care provider with any changes. Avoid drinking large amounts of liquid before going to bed or out in public. Avoid or reduce how much caffeine or alcohol you drink. Give yourself time when you urinate. Keep all follow-up visits. This is important. Contact a health care provider if: You have unexplained back pain. Your symptoms do not get better with treatment. You develop side effects from the medicine you are taking. Your urine becomes very dark or has a bad smell. Your lower abdomen becomes distended and you have trouble passing urine. Get help right away if: You have a fever or chills. You suddenly cannot urinate. You feel light-headed or very dizzy, or you faint. There are large amounts of blood or clots in your urine. Your urinary problems become hard to manage. You develop moderate to severe low back or flank pain. The flank is the side of your body between the ribs and the hip. These symptoms may be an emergency. Get help right away. Call 911. Do not wait to see if the symptoms will go away. Do not drive yourself to the hospital. Summary Benign prostatic hyperplasia (BPH) is an enlarged prostate that is caused by the normal aging process. It is not caused by cancer. An enlarged prostate can press on the urethra. This can make it hard to pass urine. This condition is more likely to develop in men older than 50 years. Get help right away if you suddenly cannot urinate. This information is not intended to replace advice given to you by your health care provider. Make sure you discuss any questions you have with your health care provider. Document Revised: 11/12/2021 Document Reviewed: 11/12/2021 [employer] Education 2022 [employer] 08/31/2023 09:07:49 Urinary Incontinence Urinary Incontinence Urinary incontinence refers to a condition in which a person is unable to control where and when to pass urine. A person with this condition will urinate involuntarily. This means that the person urinates when he or she does not mean to. What are the causes? This condition may be caused by: Medicines. Infections. Constipation. Overactive bladder muscles. Weak bladder muscles. Weak pelvic floor muscles. These muscles provide support for the bladder, intestine, and, in women, the uterus. Enlarged prostate in men. The prostate is a gland near the bladder. When it gets too big, it can pinch the urethra. With the urethra blocked, the bladder can weaken and lose the ability to empty properly. Surgery. Emotional factors, such as anxiety, stress, or post-traumatic stress disorder (PTSD). Spinal cord injury, nerve injury, or other neurological conditions. Pelvic organ prolapse. This happens in women when organs move out of place and into the vagina. This movement can prevent the bladder and urethra from working properly. What increases the risk? The following factors may make you more likely to develop this condition: Age. The older you are, the higher the risk. Obesity. Being physically inactive. and childbirth. Menopause. Diseases that affect the nerves or spinal cord. Long-term, or chronic, coughing. This can increase pressure on the bladder and pelvic floor muscles. What are the signs or symptoms? Symptoms may vary depending on the type of urinary incontinence you have. They include: A sudden urge to urinate, and passing urine involuntarily before you can get to a bathroom (urge incontinence). Suddenly passing urine when doing activities that force urine to pass, such as coughing, laughing, exercising, or sneezing (stress incontinence). Needing to urinate often but urinating only a small amount, or constantly dribbling urine (overflow incontinence). Urinating because you cannot get to the bathroom in time due to a physical disability, such as arthritis or injury, or due to a communication or thinking problem, such as Alzheimer's disease (functional incontinence). How is this diagnosed? This condition may be diagnosed based on: Your medical history. A physical exam. Tests, such as: ?Urine tests. ?X-rays of your kidney and bladder. ?Ultrasound. ?CT scan. ?Cystoscopy. In this procedure, a health care provider inserts a tube with a light and camera (cystoscope) through the urethra and into the bladder to check for problems. ?Urodynamic testing. These tests assess how well the bladder, urethra, and sphincter can store and release urine. There are different types of urodynamic tests, and they vary depending on what the test is measuring. To help diagnose your condition, your health care provider may recommend that you keep a log of when you urinate and how much you urinate. How is this treated? Treatment for this condition depends on the type of incontinence that you have and its cause. Treatment may include: Lifestyle changes, such as: ?Quitting smoking. ?Maintaining a healthy weight. ?Staying active. Try to get 150 minutes of moderate-intensity exercise every week. Ask your health care provider which activities are safe for you. ?Eating a healthy diet. ?Avoid high-fat foods, like fried foods. ?Avoid refined carbohydrates like white bread and white rice. ?Limit how much alcohol and caffeine you drink. ?Increase your fiber intake. Healthy sources of fiber include beans, whole grains, and fresh fruits and vegetables. Behavioral changes, such as: ?Pelvic floor muscle exercises. ?Bladder training, such as lengthening the amount of time between bathroom breaks, or using the bathroom at regular intervals. ?Using techniques to suppress bladder urges. This can include distraction techniques or controlled breathing exercises. Medicines, such as: ?Medicines to relax the bladder muscles and prevent bladder spasms. ?Medicines to help slow or prevent the growth of a man's prostate. ?Botox injections. These can help relax the bladder muscles. Treatments, such as: ?Using pulses of electricity to help change bladder reflexes (electrical nerve stimulation). ?For women, using a medical insurance collector to prevent urine leaks. This is a small, tampon-like, disposable device that is inserted into the urethra. ?Injecting collagen or carbon beads (bulking agents) into the urinary sphincter. These can help thicken tissue and close the bladder opening. ?Surgery. Follow these instructions at home: Lifestyle Limit alcohol and caffeine. These can fill your bladder quickly and irritate it. Keep yourself clean to help prevent odors and skin damage. Ask your health care provider about special skin creams and cleansers that can protect the skin from urine. Consider wearing pads or adult diapers. Make sure to change them regularly, and always change them right after experiencing incontinence. General instructions Take odro-kbu-rsahzei and prescription medicines only as told by your health care provider. Use the bathroom about every 3 4 hours, even if you do not feel the need to urinate. Try to empty your bladder completely every time. After urinating, wait a minute. Then try to urinate again. Make sure you are in a relaxed position while urinating. If your incontinence is caused by nerve problems, keep a log of the medicines you take and the times you go to the bathroom. Keep all follow-up visits. This is important. Where to find more information [employer] [place] of Diabetes and Digestive and Kidney Diseases: www.niddk.nih.gov [employer]: www.urologyhealth.org Contact a health care provider if: You have pain that gets worse. Your incontinence gets worse. Get help right away if: You have a fever or chills. You are unable to urinate. You have redness in your groin area or down your legs. Summary Urinary incontinence refers to a condition in which a person is unable to control where and when to pass urine. This condition may be caused by medicines, infection, weak bladder muscles, weak pelvic floor muscles, enlargement of the prostate (in men), or surgery. Factors such as older age, obesity, and childbirth, menopause, neurological diseases, and chronic coughing may increase your risk for developing this condition. Types of urinary incontinence include urge incontinence, stress incontinence, overflow incontinence, and functional incontinence. This condition is usually treated first with lifestyle and behavioral changes, such as quitting smoking, eating a healthier diet, and doing regular pelvic floor exercises. Other treatment options include medicines, bulking agents, medical devices, electrical nerve stimulation, or surgery. This information is not intended to replace advice given to you by your health care provider. Make sure you discuss any questions you have with your health care provider. Document Revised: 11/29/2020 Document Reviewed: 11/29/2020 [employer] Patient Education 2022 [employer]. 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 Interventional Cardiology Pager Email: [email or web address] Evaluation note* Encounter Date Diagnosis Assessment Notes Treatment Notes Treatment Clinical Notes Jan, Lumbosacral spondylosis with radiculopathy (ICD-10 - M47.27) [employer] Other 06-23-2023 Evaluation note* Encounter Date Diagnosis [...] use, the patient reduces the risk for SD, CVA, HTN, cardiac dysrhythmias and sudden cardiac [...] High risk medication use (ICD-10 - Z79.899) [employer] Other 04-17-2023 Hospital Discharge instructions Patient Education [...] urethra. Follow these instructions at home: Take upiv-qkc-nnnkhlo and prescription medicines only as told by [...] 04/26/2006 Document Revised: 03/21/2019 Document Reviewed: 05/31/2017 [employer] Patient Education 2019 [employer]. Follow Up Care 02/23/2022 11:36:40 With:SAMEER MONTIEL, Demetri Sequeira, URL Address: [facility] [address], [place] [id number]- When: Unknown [facility] 02-21-2023 Evaluation note* Encounter Date Diagnosis Assessment [...] use, the patient reduces the risk for SD, CVA, HTN, cardiac dysrhythmias and sudden cardiac [...] since initial CVA > 20 years ago [employer] Other 10-17-2022 Hospital Discharge instructions Patient Education 02/23/2022 11:32:02 Kidney Stones, Uajm-oa-Kuiw Kidney Stones Kidney stones are rock-like masses [...] Follow these instructions at home: Medicines Take nyyr-znj-cucpodt and prescription medicines only as told by [...] 10/12/2008 Document Revised: 09/12/2019 Document Reviewed: 09/12/2019 Elsevier Patient Education 2020 [employer]. Follow Up Care 08/28/2021 11:53:17 With:SAMEER MONTIEL, Demetri Sequeira, URL Address: [facility] [address] , [place] [id number]- [phone] When:08/24/2022 [facility] 03-28-2022 Hospital Discharge instructions Patient Education 08/04/2021 [...] Follow these instructions at home: Medicines Take sxaq-oxg-modbeli and prescription medicines only as told by [...] 05/15/2008 Document Revised: 08/07/2019 Document Reviewed: 03/17/2017 [employer] Patient Education 2020 [employer]. 08/04/2021 09:25:02 Calorie Counting for Weight Loss [...] 04/26/2006 Document Revised: 01/13/2019 Document Reviewed: 03/26/2017 [employer] Patient Education 2020 [employer]. 08/04/2021 09:24:51 Benign Prostatic Hyperplasia Benign Prostatic [...] urethra. Follow these instructions at home: Take etmf-ghw-fwzdjdx and prescription medicines only as told by [...] 04/26/2006 Document Revised: 03/21/2019 Document Reviewed: 05/31/2017 [employer] Patient Education 2020 [employer]. Follow Up Care 01/30/2021 10:09:00 With:SAMEER MONTIEL, LEXUS Carson Address: [facility] [address] , [place] [id number]- [phone] When: Unknown Comments:Will schedule RT ESWLF/u in 3-4 month due to new medication [facility] [place] 11-23-2021 Evaluation note* Encounter Date Diagnosis Assessment Notes Treatment Notes Treatment Clinical Notes Mar, Dyspnea on exertion (ICD-10 - R06.00) Mar, Leg edema (ICD-10 - R60.0) [employer] Other 10-26-2021 Evaluation note* Encounter Date Diagnosis Assessment Notes Treatment Notes Treatment Clinical Notes Feb, Dyspnea on exertion (ICD-10 - R06.00) Feb, Leg edema (ICD-10 - R60.0) [employer] Other 08-02-2021 NoteHNO ID: [id number] Author: Amara Esqueda MD Service: ? Author [...] its relevant components. Amara Esqueda [facility] App[facility]ments Appointment Date:11/07/2021 09:30:00 AM Scheduled Provider:Demetri ESTRELLA MD Location:[facility] Appointment Type:URO Office Visit [facility] evaluation + Plan note Future Appointments Appointment Date:08/24/2022 10:30:00 AM Scheduled Provider:Demetri ESTRELLA MD Location:[facility] Appointment Type:URO Office Visit [facility] evaluation + Plan note Future Appointments Appointment Date:03/01/2023 09:15:00 AM Scheduled Provider:Demetri ESTRELLA MD Location:[facility] Appointment Type:URO Office Visit [facility] evaluation noteNo InformationNortNight Node Software Other History general Narrative - Reported* Type Description Date Medical History ADITHYA Medical History hypertension Medical History heart disease Surgical History bypass triple Surgical History 2 knee replacements Surgical History hiatal hernia Surgical History cataract x 2 Hospitalization History as above [facility] Other [facility] Narrative - Reported* Type Description Date [...] OF KIDNEY STONE Hospitalization History as above [employer] Other Hospital course Narrative No data available for this section [facility] Progress note No data available for this section [facility] Summary Purpose Family History No Family History Records FoundNo Family History Records FoundNo Family History Records FoundNo Family History Records FoundNo Family History Records FoundNo Family History Records FoundNo Family History Records Found No data available for this section No Family History Records Found Advance Directives No Advanced Directives Records FoundNo Advanced Directives Records FoundNo Advanced Directives Records FoundNo Advanced Directives Records FoundNo Advanced Directives Records FoundNo Advanced Directives Records FoundNo Advanced Directives Records FoundNo Advanced Directives Records Found Reason for Referral Reason Patient being referr ed for low back pain Diagnosis 1 Lumbar spondylosis ( M47.816) Referral Organization [facility] yashira Referring Provider First Name Leo Referring Provider Last Name Dieter Referring Provider Specialty Internal Me dicine Referred Organization [facility] Referred Provider Samantha Contreras Referred Address [address], [place],[address] Referred Provider Specialty Pain Medicin e Referral Priority Routine General Notes Mr. Lam has a ronic history of low back pain. This [...] section and content) DATE CREATED AUTHOR 07/07/2018 [facility] DATE CREATED AUTHOR AUTHOR'S ORGANIZ ATION 12/09/2020 [facility] DATE CREATED AUTHOR AUTHOR'S ORGANIZ ATION 03/10/2021 [facility] DATE CREATED AUTHOR AUTHOR'S ORGANIZ ATION 03/01/[address] [facility] DATE CREATED AUTHOR AUTHOR'S ORGANIZ ATION 01/29/2023 [facility] DATE CREATED AUTHOR AUTHOR'S ORGANIZ ATION 05/21/2023 [facility] DATE CREATED AUTHOR AUTHOR'S ORGANIZ ATION 07/16/2023 [facility] DATE CREATED AUTHOR AUTHOR'S ORGANNILO ATION 09/01/2023 [facility] REASON FOR VISIT (unrecogniz ed section and content) Ref by Dr. Garcias for Dyspnea on exertion4 wk f/u MONTES, Leg Edema4 MONTH FOLLOW UPNo InformationWELLNESSlab resultsWELLNESSNo Information3 month Follow up Patient Care team informatio n (unrecognized section and content) Personnel Name: DIETER LEO Address: Address: [address] [place] [address] Personnel Name: LEO GARCIAS DO Address: Address: [address] [place] [address] Personnel Name: LEO GARCIAS DO Address: Address: [address] [place] [address] FOR RECORDS PERTAINING TO PATIENTS WHO ARE [...] BE BASED ON THE PRIMARY CLINICAL RECORDS. [employer] provides no warranty or guarantee of the accuracy or completeness of information in this document.
[2023-09-06 09:04] VITALS: BP 130/72; PULSE 65; TEMP 36.6; O2SAT 96
[2023-09-06] MEDS: 0.9 % SODIUM CHLORIDE 500 ML IV (09:10)
[2023-09-06] MEDS: CEFAZOLIN SODIUM 3,000 MG in 0.9 % SODIUM CHLORIDE 100 ML 200 MG IV (11:08)
[2023-09-06] MEDS: BUPIVACAINE HCL 0.5% PF 50 MG/10 ML VIAL INJ (11:49)
[2023-09-06] MEDS: LIDOCAINE HCL 2%-EPINEPHRINE 1:200,000 20 ML MDV 10 ML INJ (11:49)
--- NOTE | 2023-09-06 12:02 | W.PM.PROCNOT ---
Date of procedure: 09/06/23 Pre-op diagnosis: Lumbar stenosis with neurogenic claudication Post-op diagnosis: same as pre-op Procedure: Procedure: Spinal cord stimulator implantation Procedure Performed by: Mary Ann Villalobos M.D. 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 Procedure: Risks, Benefits, Alternatives were reviewed and informed consent was obtained in the preop holding area. All questions were answered appropriately. The patient was brought to the operating room and placed in the prone position with padding under all bony prominences. A pre-procedure time out was performed specifying pt. name, nature site and side of surgery, and allergies. Anesthesia provided appropriate sedation as the skin over the thoracic and lumbar spine were prepped and draped in the usual sterile fashion. Under fluoroscopic guidance, the needle entry level electrician interspace noted above was identified as the site for epidural needle entry. The skin and subcutaneous tissues were anesthetized approximately 1 level inferior to this point with a mixture of 1% lidocaine and 0.25% bupivacaine. A 14 gauge tuouy needle was inserted to the superior aspect of the lamina just inferior to the target interspace. Then, using loss of resistance technique as well as fluoroscopic guidance, the epidural space was entered. Two [employer] Leads were then advanced under intermittent fluoroscopic guidance until the distal tip of the electrode was observed to be in position at the location noted above. After appropriate electrode placement was achieved, stimulation was tested intraoperatively with multiple lead configurations until concordant paresthesias were obtained covering the areas of the patients pain Next, the skin approximately 1cm superior to the needle entry point and 3cm distal to the needle entry point were anesthetized with 1% lidocaine and 0.25% bupivacaine. An incision was made along this area exposing the underlying fascia. Hemostasis was achieved. A small horizontal incision was made in the subcutaneous tissue overlying the posterior ilium after local anesthetic was infiltrated with 1% lidocaine and 0.25% bupivacaine mixture. A small pocket was made in the subcutaneous fat using blunt dissection. Hemostasis was obtained. A stimulator battery/implantable generator was then placed into the small pocket and attached to the electrodes. Testing was performed to ensure adequate connection between the electrodes and battery. After testing was completed, the two incisions were sutured with Vicryl 3-0 for deep tissue and Vicryl 4-0 for epidermis. The incisions were covered with sterile bandages. The patient was then taken to the recovery area in good condition. Anesthesia: MAC Surgeon: Mary Ann Villalobos Pathology: none sent Condition: stable Disposition: no change
[2023-09-06 12:20] VITALS: BP 159/74; PULSE 61; TEMP 36.7; O2SAT 100
[2023-09-06 12:26] VITALS: BP 169/79; PULSE 62; TEMP 36.7; O2SAT 97
== END 2023-09-06 12:55 | disposition home or self-care (01) ==
PROVIDERS: PCP Internal Medicine; Visit Provider Anesthesiology
DX: M48.062 Spinal stenosis, lumbar region with neurogenic claudication (principal); M96.1 Postlaminectomy syndrome, not elsewhere classified
CPT/HCPCS: 36415; 63650; 63685; 77002; 77003; 95972; C1820; J1170; J2704

== ENCOUNTER 2023-09-13 13:34 | Outpatient (OUT) | payer MEDICARE, OTHER, SELFPAY ==
--- OUTSIDE RECORDS SUMMARY | 2023-09-13 13:39 | XMS_ITS | CCD ---
Author Organization [facility] Care Team Providers Care Revenue Cycle Analyst Name Role Phone PHYSICIAN, DEFAULT Admitting Unavailable [...] BALL, DR VAZQUEZ Attending Unavailable BALL, DR VAZQEUZ Primary Care Unavailable BALL, DR VAZQUEZ Consulting [...] Date of Onset Reaction(s) Facility (1 source) 81088,00; Translations: [72585,00] Propensity to adverse reactions (disorder) 9 [facility] Repository (2 sources) patient allergy list reviewed by nurse or physicia Propensity to adverse reactions Comment:Done [employer] Other (1 source) No Known Medication Allergies; Translations: [No Known Medication Allergies] Propensity to adverse reactions (disorder) [facility] Repository Medications Current Medications Medication [...] Daily, # 90 tab(s), Refills(s) 3, Pharmacy: [facility]/pharmacy #[id number], 164, cm, 08/24/22 10:54:00 EDT, [...] Daily, # 90 tab(s), Refills(s) 3, Pharmacy: [facility]/pharmacy #[id number], 164andrés, 08/24/22 10:54:00 EDT, Height/Length Dosing, 138, kg, 08/24/22 10:54:00 EDT, Weight Dosing Start Date: 06/25/23 Status: Ordered Start: 06-26-2022 take 1 tablet by [facility] every twenty-four hours oxyBUTYnin Chloride ER 15 MG 1 tablet Orally Once a day Jun, Active Start: 08-04-2021 take 1 tablet by mouth once da bettye oxybutynin 15 mg ER Tab 15 mg = 1 tab(s), Oral, Daily, # 30 tab(s), Refills(s) 11, Pharmacy: [facility]/pharmacy #[id number], 164andrés, 08/04/21 8:56:00 EDT, Height/Length Dosing, 139, kg, 08/04/21 8:56:00 EDT, Weight Dosing Start Date: 08/04/21 Status: Ordered tamsulosin hydrochloride 0.4 mg oral capsule (13 sources) alpha-Adrenergic Remy Start: 07-12-2023 take 1 capsule by mouth twice daily tamsulosin 0.4 mg Cap 0.4 mg = 1 cap(s), Oral, BID, # 180 cap(s), Refills(s) 3, [id number] 164, andrés, 08/24/22 10:54:00 EDT, Height/Length Dosing, 138, kg, 08/24/22 10:54:00 EDT, Weight Dosing Start Date: 07/12/23 Status: Ordered Start: 06-26-2022 take 1 capsule by [facility] twice daily tamsulosin 0.4 mg Cap 0.4 mg = 1 cap(s), Oral, BID, # 180 cap(s), Refills(s) 3, Pharmacy: [facility]/pharmacy #[id number], 164, cm, 02/23/22 11:10:00 EDT, Height/Length Dosing, 139, kg, 02/23/22 11:10:00 EDT, Weight Dosing Start Date: 06/26/22 Status: Ordered Start: 02-23-2022 End: 06-23-2022 take 1 capsule by mouth twice daily tamsulosin 0.4 mg Cap 0.4 mg = 1 cap(s), Oral, BID, X 30 day(s), # 60 cap(s), Refills(s) 3, Pharmacy: [facility]/pharmacy #[id number], 164, cm, 02/23/22 11:10:00 EDT, Height/Length Dosing, 139, kg, 02/23/22 11:10:00 EDT, Weight Dosing Start Date: 02/23/22 Stop Date: 06/23/22 Status: Ordered Start: 11-22-2020 End: 11-17-2021 take 1 capsule by mouth twice daily Flomax 0.4 mg Cap 0.4 mg = 1 cap(s), Oral, BID, X 90 day(s), # 180 cap(s), Refills(s) 3, [id number] 164, cm, 07/26/20 9:40:00 EDT, Height/Length Dosing, 138.5, kg, 07/26/20 9:40:00 EDT, Weight Dosing Start Date: 11/22/20 Stop Date: 11/17/21 Status: Ordered take 1 capsule by [facility] every twenty-four hours Flomax 0.4 MG 1 [...] Coronary arteriosclerosis; Translations: [Atherosclerotic heart disease of kaw coronary artery without angina pectoris] Onset: 01-27-2023 [...] unspecified] Chronic Other aftercare (3 sources) Other [employer] customer service (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) drug therapy; Translations: [OTH HALF-WAY CURRENT DRUG THERAPY] Onset: 08-25-2021 Episodic Other aftercare (2 sources) Long-term current use of drug therapy; Translations: [Other intermodal customer service (current) drug therapy] Episodic Other and ill-defined [...] Resolved: 01-08-2021 Episodic Other aftercare (1 source) shelter (current) use of anticoagulants; Translations: [HALF-WAY CURRNT USE ANTICOAGULANTS] Onset: 08-29-2021 Episodic Other aftercare (1 source) 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 Take qrdl-ral-[id number] and prescription medicines only as told by [...] the medicine (more content not included)... Normal [facility] Urology Office/Clinic Noteon 08-31-2023 Urology Office/Clinic Note [...] with voice recognition artificial intelligence software, specifically [employer] and or [employer]. 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 Normal [facility] Comment on above: Result Comment: Elec tronically Signed By: ISAAC Huston APRN, [employer]\.br\Date and Time Signed: 08/31/23 09:08 EDT RAD - MISCon 08-17-2023 RAD - MISC [id number] IFF Normal [facility] Office Visiton 01-27-2023 Follow-up visit [id number] Ralph Lam H 1945 M Date Provider Department Center 01/27/2023 Huy-SHALONDA RAI CARD [facility] No family history on file Level of Service:77853 MO OFFICE/OUTPATIENT ESTABLISHED MOD MDM 30-39 MIN Normal [facility] 36on 07-07-2022 36 Notes: Rx refused. N ot seen since December 2020. Normal [facility] BNPon 02-17-2022 Natriuretic peptide B (Bld) [Mass/Vol] 330.0 pg/mL Normal <=1,800.0 [facility] Comment on above: Performed By: #### B ELECTRONIC HEALTH RECORDS SPECIALIST, TSH, BMP #### [facility] [address] [place] [address] Dr. Temo Mckeon CBC AUTO DIFFon 02-17-2022 BASO # 0.1 103/ul Normal 0.0-0.1 [facility] Comment on above: Performed By: #### C BC #### [facility] [address] [place] [address] Dr. Temo Mckeon Basophils/100 WBC (Bld) 0.4 % Normal 0.2-2.0 [facility] Comment on above: Performed By: #### C BC #### [facility] [address] [place] [address] Dr. Temo Mckeon EO # 0.3 103/ul Normal 0.0-0.7 [facility] Comment on above: Performed By: #### C BC #### [facility] [address] [address] [address] Temo Mckeon Eosinophils/100 WBC (Bld) 2.8 % Normal 0.9-7.0 [facility] Comment on above: Performed By: #### C BC #### [facility] [address] [place] [address] Dr. Temo Mckeon Erythrocyte distribution width (RBC) [Ratio] 13.5 % Normal 11.0-15.0 [facility] Comment on above: Performed By: #### C BC #### [facility] [address] [address] [address] Temo Mckeon Hematocrit (Bld) [Volume fraction] 38.5 % Critically low 42.0-54.0 [facility] Comment on above: Performed By: #### C BC #### [facility] [address] [address] [address] Temo Mckeon Hemoglobin (Bld) [Mass/Vol] 12.5 g/dL Critically low 14.0-18.0 [facility] Comment on above: Performed By: #### C BC #### [facility] [address] [address] [address] Temo Mckeon IG # 0.11 10e3/ul Critically high 0.00-0.03 [facility] Comment on above: Performed By: #### C BC #### [facility] [address] [place] [address] Dr. Temo Mckeon IG % 0.9 % Critically high 0.0-0.5 [facility] [place] Comment on above: Performed By: #### C BC #### [facility] [address] [place] [address] Dr. Temo Mckeon LYMPH # 2.1 103/ul Normal 1.2-3.8 [facility] Comment on above: Performed By: #### C BC #### [facility] [address] [address] [address] Temo Mckeon Lymphocytes/100 WBC (Bld) 17.5 % Critically low 20.5-60.0 [facility] Comment on above: Performed By: #### C BC #### [facility] [address] [address] [address] Temo Mckeon MANUAL DIFF REQ NO Normal [facility] Comment on above: Performed By: #### C BC #### [facility] [address] [place] [address] Dr. Temo Mckeon MCH (RBC) [Entitic mass] 30.6 pg Normal 25.9-34.0 [facility] Comment on above: Performed By: #### C BC #### [facility] [address] [address] [address] Temo Mckeon MCHC (RBC) [Mass/Vol] 32.5 g/dL Normal 29.9-35.2 [facility] Comment on above: Performed By: #### C BC #### [facility] [address] [address] [address] Temo Mckeon MCV (RBC) [Entitic vol] 94.1 fL Critically high 80.0-94.0 [facility] Comment on above: Performed By: #### C BC #### [facility] [address] [address] [address] Temo Mckeon MONO # 0.9 103/ul Critically high 0.3-0.8 [facility] Comment on above: Performed By: #### C BC #### [facility] [address] [place] [address] Dr. Temo Mckeon Monocytes/100 WBC (Bld) 7.9 % Normal 1.7-12.0 [facility] Comment on above: Performed By: #### C BC #### [facility] [address] [address] [address] Temo Mckeon NEUT # 8.4 103/ul Critically high 1.4-6.5 [facility] Comment on above: Performed By: #### C BC #### [facility] [address] [place] [address] Dr. Temo Mckeon Neutrophils/100 WBC (Bld) 70.5 % Normal 43.0-75.0 [facility] Comment on above: Performed By: #### C BC #### [facility] [address] [place] [address] Dr. Temo Mckeon Platelet mean volume (Bld) [Entitic vol] 10.5 fL Normal 9.5-13.5 [facility] Comment on above: Performed By: #### C BC #### [facility] [address] [place] [address] Dr. Temo Mckeon PLT 172 103/ul Normal 150-450 [facility] Comment on above: Performed By: #### C BC #### [facility] [address] [address] [address] Temo Mckeon RBC 4.09 106/ul Critically low 4.70-6.10 [facility] Comment on above: Performed By: #### C BC #### [facility] [address] [address] [address] Temo Mckeon WBC 11.9 103/ul Critically high 4.0-11.0 [facility] Comment on above: Performed By: #### C BC #### [facility] [address] [address] [address] Temo Mckeon PROF CHEM 8 (BAS METB)on Anion gap [Moles/Vol] 14.2 mmol/L Normal [facility] Comment on above: Performed By: #### B ELECTRONIC HEALTH RECORDS SPECIALIST, TSH, BMP #### [facility] [address] [place] [address] Dr. Temo Mckeon Calcium [Mass/Vol] 9.1 mg/dL Normal 8.5-10.1 [facility] Comment on above: Performed By: #### B ELECTRONIC HEALTH RECORDS SPECIALIST, TSH, BMP #### [facility] [address] [address] [address] Temo Mckeon Chloride [Moles/Vol] 105 mmol/L Normal 98-107 [facility] Comment on above: Performed By: #### B ELECTRONIC HEALTH RECORDS SPECIALIST, TSH, BMP #### [facility] [address] [address] [address] Temo Mckeon CO2 [Moles/Vol] 25.3 mmol/L Normal 21.0-32.0 [facility] Comment on above: Performed By: #### B ELECTRONIC HEALTH RECORDS SPECIALIST, TSH, BMP #### [facility] [address] [address] [address] Temo Mckeon Creatinine [Mass/Vol] 1.72 mg/dL Critically high 0.70-1.30 [facility] Comment on above: Performed By: #### B ELECTRONIC HEALTH RECORDS SPECIALIST, TSH, BMP #### [facility] [address] [address] [address] Temo Mckeon EGFR-AF [place]ER 47 mL/min/1.73m2 Critically low >=60 [facility] Comment on above: Performed By: #### B ELECTRONIC HEALTH RECORDS SPECIALIST, TSH, BMP #### [facility] [address] [place] [address] Dr. Temo Mckeon EGFR-NON AF [place] 39 mL/min/1.73m2 Critically low >=60 [facility] Comment on above: Performed By: #### B ELECTRONIC HEALTH RECORDS SPECIALIST, TSH, BMP #### [facility] [address] [place] [address] Dr. Temo Mckeon Glucose [Mass/Vol] 134 mg/dL Critically high 74-106 [facility] Comment on above: Performed By: #### B ELECTRONIC HEALTH RECORDS SPECIALIST, TSH, BMP #### [facility] [address] [place] [address] Dr. Temo Mckeon Potassium [Moles/Vol] 4.5 mmol/L Normal 3.5-5.1 [facility] Comment on above: Performed By: #### B ELECTRONIC HEALTH RECORDS SPECIALIST, TSH, BMP #### [facility] [address] [place] [address] Dr. Temo Mckeon Sodium [Moles/Vol] 140 mmol/L Normal 136-145 [facility] Comment on above: Performed By: #### B ELECTRONIC HEALTH RECORDS SPECIALIST, TSH, BMP #### [facility] [address] [place] [address] Dr. Temo Mckeon Urea nitrogen [Mass/Vol] 36.0 mg/dL Critically high 7.0-18.0 [facility] Comment on above: Performed By: #### B ELECTRONIC HEALTH RECORDS SPECIALIST, TSH, BMP #### [facility] [address] [place] [address] Dr. Temo Mckeon Urea nitrogen/Creatinine [Mass ratio] 20.9 mg/mg Normal [facility] Comment on above: Performed By: #### B ELECTRONIC HEALTH RECORDS SPECIALIST, TSH, BMP #### [facility] [address] [place] [address] Dr. Temo Mckeon TSHon 02-17-2022 TSH 1.708 uIU/mL Normal 0.358-3.740 [facility] Comment on above: Performed By: #### B ELECTRONIC HEALTH RECORDS SPECIALIST, TSH, BMP #### [facility] [address] [address] [address] Temo Mckeon XR KUB 1 VIEWon [...] RADU CHRISTENSEN Date: 2022-02-17 11:43 Normal [facility] METHYLMALONIC ACID (MMA)on 0 11-01-2021 Methylmalonic Acid, Serum 205 nmol/L Normal 0-378 [facility] Comment on above: Performed By: #### C BC #### [facility] [address] [place] [address] Dr. Temo Mckeon FOLATE ([facility])on Folate >20.0 Normal >3.0 [facility] Comment on above: Result Comment: A rum folate concentration of less than 3.1 ng/mL is considered to represent clinical deficiency. Performed By: #### B MP, ALT, LIPID #### [facility] [address] [address] [address] Temo Mckeon CBC AUTO DIFFon 10-29-2021 BASO # 0.1 103/ul Normal 0.0-0.1 [facility] Comment on above: Performed By: #### C BC #### [facility] [address] [place] [address] Dr. Temo Mckeon Basophils/100 WBC (Bld) 0.5 % Normal 0.2-2.0 [facility] Comment on above: Performed By: #### C BC #### [facility] [address] [place] [address] Dr. Temo Mckeon EO # 0.3 103/ul Normal 0.0-0.7 [facility] Comment on above: Performed By: #### C BC #### [facility] [address] [place] [address] Dr. Temo Mckeon Eosinophils/100 WBC (Bld) 3.3 % Normal 0.9-7.0 [facility] Comment on above: Performed By: #### C BC #### [facility] [address] [place] [address] Dr. Temo Mckeon Erythrocyte distribution width (RBC) [Ratio] 13.3 % Normal 11.0-15.0 [facility] Comment on above: Performed By: #### C BC #### [facility] [address] [place] [address] Dr. Temo Mckeon Hematocrit (Bld) [Volume fraction] 40.4 % Critically low 42.0-54.0 [facility] Comment on above: Performed By: #### C BC #### [facility] [address] [place] [address] Dr. Temo Mckeon Hemoglobin (Bld) [Mass/Vol] 13.4 g/dL Critically low 14.0-18.0 [facility] Comment on above: Performed By: #### C BC #### [facility] [address] [place] [address] Dr. Temo Mckeon IG # 0.06 10e3/ul Critically high 0.00-0.03 [facility] Comment on above: Performed By: #### C BC #### [facility] [address] [place] [address] Dr. Temo Mckeon IG % 0.6 % Critically high 0.0-0.5 [facility] Comment on above: Performed By: #### C BC #### [facility] [address] [place] [address] Dr. Temo Mckeon LYMPH # 2.2 103/ul Normal 1.2-3.8 [facility] Comment on above: Performed By: #### C BC #### [facility] [address] [place] [address] Dr. Temo Mckeon Lymphocytes/100 WBC (Bld) 22.6 % Normal 20.5-60.0 [facility] Comment on above: Performed By: #### C BC #### [facility] [address] [place] [address] Dr. Temo Mckeon MANUAL DIFF REQ NO Normal [facility] Comment on above: Performed By: #### C BC #### [facility] [address] [place] [address] Dr. Temo Mckeon MCH (RBC) [Entitic mass] 30.8 pg Normal 25.9-34.0 [facility] Comment on above: Performed By: #### C BC #### [facility] [address] [place] [address] Dr. Temo Mckeon MCHC (RBC) [Mass/Vol] 33.2 g/dL Normal 29.9-35.2 [facility] Comment on above: Performed By: #### C BC #### [facility] [address] [place] [address] Dr. Temo Mckeon MCV (RBC) [Entitic vol] 92.9 fL Normal 80.0-94.0 [facility] Comment on above: Performed By: #### C BC #### [facility] [address] [place] [address] Dr. Temo Mckeon MONO # 0.7 103/ul Normal 0.3-0.8 [facility] Comment on above: Performed By: #### C BC #### [facility] [address] [place] [address] Dr. Temo Mckeon Monocytes/100 WBC (Bld) 7.6 % Normal 1.7-12.0 [facility] Comment on above: Performed By: #### C BC #### [facility] [address] [place] [address] Dr. Temo Mckeon NEUT # 6.2 103/ul Normal 1.4-6.5 [facility] Comment on above: Performed By: #### C BC #### [facility] [address] [address] [address] Temo Mckeon Neutrophils/100 WBC (Bld) 65.4 % Normal 43.0-75.0 [facility] Comment on above: Performed By: #### C BC #### [facility] [address] [address] [address] Temo Mckeon Platelet mean volume (Bld) [Entitic vol] 10.5 fL Normal 9.5-13.5 [facility] Comment on above: Performed By: #### C BC #### [facility] [address] [place] [address] Dr. Temo Mckeon PLT 169 103/ul Normal 150-450 [facility] Comment on above: Performed By: #### C BC #### [facility] [address] [place] [address] Dr. Temo Mckeon RBC 4.35 106/ul Critically low 4.70-6.10 [facility] Comment on above: Performed By: #### C BC #### [facility] [address] [place] [address] Dr. Temo Mckeon WBC 9.5 103/ul Normal 4.0-11.0 [facility] Comment on above: Performed By: #### C BC #### [facility] [address] [place] [address] Dr. Temo Mckeon FERRITINon 10-29-2021 Ferritin [Mass/Vol] 423.0 ng/mL Critically high 26.0-388.0 [facility] Comment on above: Performed By: #### C BC #### [facility] [address] [place] [address] Dr. Temo Mckeon IRON AND TIBCon 10-29-2021 % SATURATION 25.6 % Normal [facility] Comment on above: Performed By: #### C BC #### [facility] [address] [place] [address] Dr. Temo Mckeon Iron [Mass/Vol] 79.0 ug/dL Normal 65.0-175.0 [facility] Comment on above: Performed By: #### C BC #### [facility] [address] [address] [address] Temo Mckeon TIBC DIRECT 308.0 ug/dL Normal 250.0-450.0 [facility] Comment on above: Performed By: #### C BC #### [facility] [address] [address] [address] Temo Mckeon LIPID PROFILEon 10-29-2021 CHOL-HDL RATIO NORM SEE BELOW Normal [facility] Comment on above: Result Comment: 3.3 - 4.4 LOW RISK 4.4 - 7.1 AVERAGE RISK 7.1 - 11.0 MODERATE RISK >11.0 HIGH RISK Performed By: #### B MP, ALT, LIPID #### [facility] [address] [address] [address] Temo Mckeon Cholesterol [Mass/Vol] 93 mg/dL Normal <=200 [facility] Comment on above: Performed By: #### B MP, ALT, LIPID #### [facility] [address] [address] [address] Temo Mckeon Cholesterol in HDL [Mass/Vol] 40 mg/dL Normal 40-60 [facility] Comment on above: Performed By: #### B MP, ALT, LIPID #### [facility] [address] [address] [address] Temo Mckeon Cholesterol in LDL [Mass/Vol] 35.4 mg/dL Normal [facility] Comment on above: Performed By: #### B MP, ALT, LIPID #### [facility] [address] [address] [address] Temo Mckeon Cholesterol.total/C holesterol in HDL [Mass ratio] 2.3 {ratio} Normal [facility] Comment on above: Performed By: #### B MP, ALT, LIPID #### [facility] [address] [address] [address] Temo Mckeon HDL NORMAL > or = 60 mg/dl - LO W CARDIOVASCULAR RISK <40 mg/dl - HIGH CARDIOVASCULAR RISK Normal [facility] Comment on above: Performed By: #### B MP, ALT, LIPID #### [facility] [address] [place] [address] Dr. Temo Mckeon LDL CALC NORMAL SEE BELOW Normal [facility] Comment on above: Result Comment: <100 mg/dl OPTIMAL 100 - 129 mg/dl NEAR OR ABOVE OPTIMAL 130 - 159 mg/dl BORDERLINE HIGH 160 - 189 mg/dl HIGH >190 mg/dl VERY HIGH Performed By: #### B MP, ALT, LIPID #### [facility] [address] [address] [address] Temo Mckeon Triglyceride [Mass/Vol] 88 mg/dL Normal <=150 [facility] Comment on above: Performed By: #### B MP, ALT, LIPID #### [facility] [address] [place] [address] Dr. Temo Mckeon VLDL CALC 17.6 mg/dL Normal [facility] Comment on above: Performed By: #### B MP, ALT, LIPID #### [facility] [address] [place] [address] Dr. Temo Mckeon PROF CHEM 8 (BAS METB)on Anion gap [Moles/Vol] 14.6 mmol/L Normal [facility] Comment on above: Performed By: #### B MP, ALT, LIPID #### [facility] [address] [place] [address] Dr. Temo Mckeon Calcium [Mass/Vol] 8.8 mg/dL Normal 8.5-10.1 [facility] Comment on above: Performed By: #### B MP, ALT, LIPID #### [facility] [address] [place] [address] Dr. Temo Mckeon Chloride [Moles/Vol] 106 mmol/L Normal 98-107 [facility] Comment on above: Performed By: #### B MP, ALT, LIPID #### [facility] [address] [place] [address] Dr. Temo Mckeon CO2 [Moles/Vol] 23.8 mmol/L Normal 21.0-32.0 [facility] Comment on above: Performed By: #### B MP, ALT, LIPID #### [facility] [address] [address] [address] Temo Mckeon Creatinine [Mass/Vol] 1.57 mg/dL Critically high 0.70-1.30 [facility] Comment on above: Performed By: #### B MP, ALT, LIPID #### [facility] [address] [address] [address] Temo Mckeon EGFR-AF [place] 52 mL/min/1.73m2 Critically low >=60 [facility] Comment on above: Performed By: #### B MP, ALT, LIPID #### [facility] [address] [address] [address] Temo Mckeon EGFR-NON AF HONG KONGER 43 mL/min/1.73m2 Critically low >=60 [facility] Comment on above: Performed By: #### B MP, ALT, LIPID #### [facility] [address] [place] [address] Dr. Temo Mckeon Glucose [Mass/Vol] 148 mg/dL Critically high 74-106 [facility] Comment on above: Performed By: #### B MP, ALT, LIPID #### [facility] [address] [address] [address] Temo Mckeon Potassium [Moles/Vol] 4.4 mmol/L Normal 3.5-5.1 [facility] Comment on above: Performed By: #### B MP, ALT, LIPID #### [facility] [address] [address] [address] Temo Mckeon Sodium [Moles/Vol] 140 mmol/L Normal 136-145 [facility] Comment on above: Performed By: #### B MP, ALT, LIPID #### [facility] [address] [address] [address] Temo Mckeon Urea nitrogen [Mass/Vol] 31.0 mg/dL Critically high 7.0-18.0 [facility] Comment on above: Performed By: #### B MP, ALT, LIPID #### [facility] [address] [address] [address] Temo Mckeon Urea nitrogen/Creatinine [Mass ratio] 19.7 mg/mg Normal [facility] Comment on above: Performed By: #### B MP, ALT, LIPID #### [facility] [address] [address] [address] Temo Mckeon SGPTon 10-29-2021 ALT [Catalytic activity/Vol] 39 U/L Normal 16-63 [facility] Comment on above: Performed By: #### B MP, ALT, LIPID #### [facility] [address] [place] [address] Dr. Temo Mckeon VITAMIN B12on 10-29-2021 Cobalamin (Vitamin B12) [Mass/Vol] 675.0 pg/mL Normal 193.0-986.0 [facility] Comment on above: Performed By: #### C BC #### [facility] [address] [place] [address] Dr. Temo Mckeon XR KUB 1 VIEWon [...] MARTA HALE Date: 2021-08-29 19:34 Normal [facility] CBC AUTO DIFFon 08-21-2021 BASO # 0.0 103/ul Normal 0.0-0.1 [facility] Comment on above: Performed By: #### C BC #### [facility] [address] [place] [address] Dr. Temo Mckeon Basophils/100 WBC (Bld) 0.3 % Normal 0.2-2.0 [facility] Comment on above: Performed By: #### C BC #### [facility] [address] [place] [address] Dr. Temo Mckeon EO # 0.3 103/ul Normal 0.0-0.7 [facility] Comment on above: Performed By: #### C BC #### [facility] [address] [place] [address] Dr. Temo Mckeon Eosinophils/100 WBC (Bld) 3.2 % Normal 0.9-7.0 [facility] Comment on above: Performed By: #### C BC #### [facility] [address] [place] [address] Dr. Temo Mckeon Erythrocyte distribution width (RBC) [Ratio] 13.5 % Normal 11.0-15.0 [facility] Comment on above: Performed By: #### C BC #### [facility] [address] [place] [address] Dr. Temo Mckeon Hematocrit (Bld) [Volume fraction] 38.8 % Critically low 42.0-54.0 [facility] Comment on above: Performed By: #### C BC #### [facility] [address] [place] [address] Dr. Temo Mckeon Hemoglobin (Bld) [Mass/Vol] 12.8 g/dL Critically low 14.0-18.0 [facility] Comment on above: Performed By: #### C BC #### [facility] [address] [place] [address] Dr. Temo Mckeon IG # 0.05 10e3/ul Critically high 0.00-0.03 [facility] Comment on above: Performed By: #### C BC #### [facility] [address] [place] [address] Dr. Temo Mckeon IG % 0.5 % Normal 0.0-0.5 [facility] Comment on above: Performed By: #### C BC #### [facility] [address] [place] [address] Dr. Temo Mckeon LYMPH # 1.8 103/ul Normal 1.2-3.8 [facility] Comment on above: Performed By: #### C BC #### [facility] [address] [place] [address] Dr. Temo Mckeon Lymphocytes/100 WBC (Bld) 19.6 % Critically low 20.5-60.0 [facility] Comment on above: Performed By: #### C BC #### [facility] [address] [place] [address] Dr. Temo Mckeon MANUAL DIFF REQ NO Normal [facility] Comment on above: Performed By: #### C BC #### [facility] [address] [place] [address] Dr. Temo Mckeon MCH (RBC) [Entitic mass] 31.1 pg Normal 25.9-34.0 [facility] Comment on above: Performed By: #### C BC #### [facility] [address] [place] [address] Dr. Temo Mckeon MCHC (RBC) [Mass/Vol] 33.0 g/dL Normal 29.9-35.2 [facility] Comment on above: Performed By: #### C BC #### [facility] [address] [place] [address] Dr. Temo Mckeon MCV (RBC) [Entitic vol] 94.4 fL Critically high 80.0-94.0 [facility] Comment on above: Performed By: #### C BC #### [facility] [address] [place] [address] Dr. Temo Mckeon MONO # 0.7 103/ul Normal 0.3-0.8 [facility] Comment on above: Performed By: #### C BC #### [facility] [address] [place] [address] Dr. Temo Mckeon Monocytes/100 WBC (Bld) 7.5 % Normal 1.7-12.0 [facility] Comment on above: Performed By: #### C BC #### [facility] [address] [place] [address] Dr. Temo Mckeon NEUT # 6.4 103/ul Normal 1.4-6.5 [facility] Comment on above: Performed By: #### C BC #### [facility] [address] [place] [address] Dr. Temo Mckeon Neutrophils/100 WBC (Bld) 68.9 % Normal 43.0-75.0 [facility] Comment on above: Performed By: #### C BC #### [facility] [address] [address] [address] Temo Mckeon Platelet mean volume (Bld) [Entitic vol] 10.2 fL Normal 9.5-13.5 [facility] Comment on above: Performed By: #### C BC #### [facility] [address] [address] [address] Temo Mckeon PLT 160 103/ul Normal 150-450 [facility] Comment on above: Performed By: #### C BC #### [facility] [address] [address] [address] Temo Mckeon RBC 4.11 106/ul Critically low 4.70-6.10 [facility] Comment on above: Performed By: #### C BC #### [facility] [address] [address] [address] Temo Mckeon WBC 9.3 103/ul Normal 4.0-11.0 [facility] Comment on above: Performed By: #### C BC #### [facility] [address] [address] [address] Temo Mckeon [facility] SARS-CoV-2 (COVID-19) RNA PRADEEP+probe Ql (Unsp spec) Not detected Normal NOT DETECTED [facility] Comment on above: Result Comment: This test is not yet approved or cleared by the [place] FDA. When there are no FDA-approved or cleared tests available, and other criteria are met, FDA can make tests available under an emergency access mechanism called an Emergency Use Authorization (EUA). The EUA for this test is supported by the Volunteer Services Supervisor of Health and Human Service's (HHS's) declaration [...] SARS-CoV-2. Performed By: #### C BC #### [facility] [address] [place] [address] Dr. Temo Mckeon PROF CHEM 8 (BAS METB)on Anion gap [Moles/Vol] 12.4 mmol/L Normal [facility] Comment on above: Performed By: #### C BC #### [facility] [address] [place] [address] Dr. Temo Mckeon Calcium [Mass/Vol] 8.6 mg/dL Normal 8.5-10.1 [facility] Comment on above: Performed By: #### C BC #### [facility] [address] [place] [address] Dr. Temo Mckeon Chloride [Moles/Vol] 105 mmol/L Normal 98-107 [facility] Comment on above: Performed By: #### C BC #### [facility] [address] [place] [address] Dr. Temo Mckeon CO2 [Moles/Vol] 27.0 mmol/L Normal 22.0-30.0 [facility] Comment on above: Performed By: #### C BC #### [facility] [address] [place] [address] Dr. Temo Mckeon Creatinine [Mass/Vol] 1.57 mg/dL Critically high 0.66-1.25 [facility] Comment on above: Performed By: #### C BC #### [facility] [address] [place] [address] Dr. Temo Mckeon EGFR-AF [place]ONG [place]ER 52 mL/min/1.73m2 Critically low >=60 [facility] Comment on above: Performed By: #### C BC #### [facility] [address] [place] [address] Dr. Temo Mckeon EGFR-NON AF [place]ER 43 mL/min/1.73m2 Critically low >=60 [facility] Comment on above: Performed By: #### C BC #### [facility] [address] [place] [address] Dr. Temo Mckeon Glucose [Mass/Vol] 145 mg/dL Critically high 74-106 [facility] Comment on above: Performed By: #### C BC #### [facility] [address] [place] [address] Dr. Temo Mckeon Potassium [Moles/Vol] 4.4 mmol/L Normal 3.4-5.0 [facility] Comment on above: Performed By: #### C BC #### [facility] [address] [place] [address] Dr. Temo Mckeon Sodium [Moles/Vol] 140 mmol/L Normal 137-145 [facility] Comment on above: Performed By: #### C BC #### [facility] [address] [place] [address] Dr. Temo Mckeon Urea nitrogen [Mass/Vol] 32.0 mg/dL Critically high 7.0-18.0 [facility] Comment on above: Performed By: #### C BC #### [facility] [address] [place] [address] Dr. Temo Mckeon Urea nitrogen/Creatinine [Mass ratio] 20.4 mg/mg Normal [facility] Comment on above: Performed By: #### C BC #### [facility] [address] [place] [address] Dr. Temo Mckeon PROTIMEon 08-21-2021 INR Coag (PPP) [Relative time] 1.04 {INR} Normal [facility] Comment on above: Performed By: #### C BC #### [facility] [address] [place] [address] Dr. Temo Mckeon INR GUIDELINES SEE BELOW Normal [facility] Comment on above: Result Comment: APPLE RED INR: 2.0 - 3.0 CONDITIONS NOT LISTED BELOW 2.5 - 3.5 FOR PROSTHETIC HEART VALVE REPLACEMENT 2.5 - 3.5 RECURRENT THROMBOSIS Performed By: #### C BC #### [facility] [address] [place] [address] Dr. Temo Mckeon PT Coag (PPP) [Time] 11.2 s Normal 9.0-11.6 [facility] Comment on above: Performed By: #### C BC #### [facility] [address] [place] [address] [address] [address] Temo Mckeon PTTon 08-21-2021 aPTT Coag (Bld) [Time] 25.2 s Normal 22.3-36.2 [facility] Comment on above: Performed By: #### C BC #### [facility] [address] [place], [place] [address] Dr. Temo Mckeon XR KUB 1 VIEWon [...] TANISHA MATOS Date: 2021-07-29 09:21 Normal [facility] Covid-19 PCR (CVDTB)on 04-10 SARS-CoV-2 (COVID-19) RNA PRADEEP+probe Ql (Unsp spec) Not detected Normal NOT DETECTED [facility] Comment on above: Result Comment: This test is not yet approved or cleared by the [place] FDA. When there are no FDA-approved or cleared tests available, and other criteria are met, FDA can make tests available under an emergency access mechanism called an Emergency Use Authorization (EUA). The EUA for this test is supported by the Volunteer Services Supervisor of Health and Human Service's (HHS's) declaration [...] SARS-CoV-2. Performed By: #### C VDTBH #### [facility] [address] [address] [address] angio chest PE protocolon 03-07-2021 CT angio chest PE protocol [facility] [address] [address] [address] Scan Report Signed Patient: Lenin Lam MR#: [id number] 71 : 1945 Acct:[id number] Age/Sex: 75 / M ADM Date: 03/07/21 Loc: CT Room: Type: [facility] Attending Dr: Erika Bender MD Ordering Provider: [...] Balwinder Zambrano M.D.03/07/2021 2:01 PM Dictation Location: [place] [address] Transcribed By: [facility] 03/07/21 1401 Dictated By: Balwinder Zambrano DO 03/07/21 1359 Signed By: 03/07/21 140 [facility] ECH echo transthoracicon ECH echo transthoracic [facility] [place] [address] Echocardiogram Signed Patient: Lenin Lam MR#: [id number] 71 : 1945 Acct:[id number] Age/Sex: 75 / M ADM Date: 03/07/21 Loc: CT Room: Type: [facility] Attending Dr: Erika Bender MD Ordering Provider: [...] DO 03/07/21 1351 Signed By: 03/07/21 1449 [facility] ISTAT XRay CREon 03-07-2021 Creatinine [Mass/Vol] 1.5 mg/dL High 0.6-1.3 [facility] Comment on above: Result Comment: ER/E SD physician is notified/shown all ISTAT results. Critical values may be confirmed by laboratory testing if deemed necessary by ER attending doctor. Performed By: #### I SCRE #### [address] Point of Care testing , ISTAT GFR ( 55 [facility] Comment on above: Result Comment: GFR estimated reference range: According to KDOQI guidelines, <60 ml/min/1.73m2 is sufficient to diagnose a patient with chronic kidney disease. PERFORMED BY: [place] [address] PATHOLOGIST DOORMAKER POOJA MYERS M.D. Performed By: #### I SCRE #### [address] Point of Care testing , ISTAT GFR (Non- Am 46 [facility] Comment on above: Performed By: #### I SCRE #### [address] Point of Care testing , Vital Signs Date Time Vital Sign Value Performing Clinician Facility 02-01-2023 09:30-0400 Body height 162.56 cm Leo Garcias Other [employer] [facility] [employer] Other 02-01-2023 09:30-0400 Body mass index (BMI) [Ratio] 49.6 kg/m2 Leo Garcias Other [employer] Other 02-01-2023 09:30-0400 Body weight 131.09 kg Leo Ball Other [employer] Other 02-01-2023 09:30-0400 Diastolic blood pressure 83 mm[Hg] Leo Ball Other [employer] Other 02-01-2023 09:30-0400 Respiratory rate 20 /min Leo Ball Other [employer] Other 02-01-2023 09:30-0400 SaO2% (BldA) [Mass fraction] 97 % Leo Ball Other [employer] Other 02-01-2023 09:30-0400 Systolic blood pressure 147 mm[Hg] Leo Ball Other [employer] Other 10-30-2022 09:00-0400 Body height 162.56 cm Leo Ball Other [employer] Other 10-30-2022 09:00-0400 Body mass index (BMI) [Ratio] 50.67 kg/m2 Leo Ball Other [employer] Other 10-30-2022 09:00-0400 Body weight 133.9 kg Leo Ball Other [employer] Other 10-30-2022 09:00-0400 Diastolic blood pressure 68 mm[Hg] Leo Ball Other [employer] Other 10-30-2022 09:00-0400 Respiratory rate 20 /min Leo Ball Other [employer] Other 10-30-2022 09:00-0400 SaO2% (BldA) [Mass fraction] 98 % Leo Ball Other [employer] [facility] [employer] Other 10-30-2022 09:00-0400 Systolic blood pressure 121 mm[Hg] Leo Ball Other [employer] Other 08-24-2022 10:32-0400 Blood Pressure Location Demetri ESTRELLA [facility] 08-24-2022 10:32-0400 Diastolic blood pressure 73 mm[Hg] Demetri ESTRELLA [facility] 08-24-2022 10:32-0400 Heart rate 59 /min Demetri ESTRELLA [facility] 08-24-2022 10:32-0400 Respiratory rate 16 /min Demetri ESTRELLA [facility] 08-24-2022 10:32-0400 Systolic blood pressure 125 mm[Hg] Demetri ESTRELLA [facility] 06-30-2022 09:00-0500 Body height 162.56 cm Leo Ball Other [employer] [facility] [employer] Other 06-30-2022 09:00-0500 Body mass index (BMI) [Ratio] 51.52 kg/m2 Leo Ball Other [employer] [facility] [employer] Other 06-30-2022 09:00-0500 Body weight 136.17 kg Leo Ball Other [employer] Other 06-30-2022 09:00-0500 Diastolic blood pressure 84 mm[Hg] Leo Ball Other [employer] Other 06-30-2022 09:00-0500 Respiratory rate 20 /min Leo Ball Other [facility] [employer] Other 06-30-2022 09:00-0500 Systolic blood pressure 128 mm[Hg] Leo Garcias Other [facility] [employer] Other 02-23-2022 11:07-0400 Blood Pressure Location Demetri ESTRELLA [facility] 02-23-2022 11:07-0400 Diastolic blood pressure 74 mm[Hg] Demetri ESTRELLA [facility] 02-23-2022 11:07-0400 Heart rate 76 /min Demetri ESTRELLA [facility] 02-23-2022 11:07-0400 Respiratory rate 16 /min Demetri ESTRELLA [facility] 02-23-2022 11:07-0400 Systolic blood pressure 128 mm[Hg] Demetri ESTRELLA [facility] 08-04-2021 08:51-0400 Blood Pressure Location Demetri ESTRELLA [facility] 08-04-2021 08:51-0400 Diastolic blood pressure 72 mm[Hg] Demetri ESTRELLA [facility] 08-04-2021 08:51-0400 Heart rate 63 /min Demetri ESTRELLA [facility] 08-04-2021 08:51-0400 Respiratory rate 16 /min Demetri ESTRELLA [facility] 08-04-2021 08:51-0400 Systolic blood pressure 121 mm[Hg] Demetri ESTRELLA [facility] 04-01-2021 12:45-0500 Body height 162.56 cm Erika Bender Other [employer] Other 04-01-2021 12:45-0500 Body mass index (BMI) [Ratio] 51.15 kg/m2 Erika Bender Other [employer] Other 04-01-2021 12:45-0500 Body temperature 97.6 [degF] Erika Bender Other [employer] Other 04-01-2021 12:45-0500 Body weight 135.17 kg Erika Bender Other [employer] Other 04-01-2021 12:45-0500 Diastolic blood pressure 68 mm[Hg] Erika Bender Other [employer] Other 04-01-2021 12:45-0500 Respiratory rate 20 /min Erika Bender Other [employer] Other 04-01-2021 12:45-0500 SaO2% (BldA) [Mass fraction] 97 % Erika Bender Other [employer] Other 04-01-2021 12:45-0500 Systolic blood pressure 140 mm[Hg] Erika Bender Other [employer] Other 03-04-2021 16:15-0400 Body height 162.56 cm Erika Bender Other [employer] Other 03-04-2021 16:15-0400 Body mass index (BMI) [Ratio] 51.15 kg/m2 Erika Bender Other [employer] Other 03-04-2021 16:15-0400 Body temperature 98.3 [degF] Erika Bender Other [employer] Other 03-04-2021 16:15-0400 Body weight 135.17 kg Erika Bender Other [employer] Other 03-04-2021 16:15-0400 Diastolic blood pressure 68 mm[Hg] Erika Bender Other [employer] Other 03-04-2021 16:15-0400 Respiratory rate 20 /min Erika Bender Other [employer] Other 03-04-2021 16:15-0400 SaO2% (BldA) [Mass fraction] 97 % Erika Bender Other [employer] Other 03-04-2021 16:15-0400 Systolic blood pressure 148 mm[Hg] Erika Bender Other [employer] Other Encounters Encounter Date Encounter Type Care Provider Facility Start: 08-31-2023 End: 09-01-2023 ambulatory Orquidea Huston Facility:[facility] Start: 08-31-2023 End: 08-31-2023 Patient encounter procedure Orquidea Huston [facility] Start: 07-05-2023 End: 07-06-2023 ambulatory Mary Ann Villalobos MD Facility:[facility] Start: 06-21-2023 End: 06-22-2023 ambulatory [facility] Start: 05-20-2023 End: 05-20-2023 ambulatory CLAUDETTE RICHARDSON Not Available Start: 03-08-2023 End: 03-09-2023 ambulatory [facility] Start: 02-08-2023 End: 02-09-2023 ambulatory [facility] Start: 02-01-2023 End: 02-01-2023 ambulatory Leo Garcias Other [employer] Other Start: 02-01-2023 Office outpatient vi sit 25 minutes Leo Garcias [facility] Start: 01-27-2023 End: 01-27-2023 ambulatory AB [facility] Start: 01-13-2023 End: 01-13-2023 ambulatory Leo Dieter Other [employer] Other Start: 01-13-2023 Telephone encounter Leo CHILDRESS G [facility] Start: 11-09-2022 End: 11-09-2022 ambulatory eLo Garcias Other [employer] Other Start: 11-09-2022 Telephone encounter Leo CHILDRESS G [facility] Start: 10-30-2022 End: 10-30-2022 ambulatory Leo Garcias Other [employer] Other Start: 10-30-2022 Patient encounter procedure Leo Garcias [facility] Start: 08-24-2022 End: 08-24-2022 Patient encounter procedure Demetri ESTRELLA [facility] Start: 07-08-2022 End: 07-08-2022 ambulatory Leo Garcias Other [employer] Other Start: 07-08-2022 Telephone encounter Leo CHILDRESS Dieter [facility] Start: 06-30-2022 End: 06-30-2022 ambulatory Leo Garcias Other [employer] Other Start: 06-30-2022 Office outpatient vi sit 25 minutes Leo Garcias [facility] Start: 02-23-2022 End: 02-23-2022 Patient encounter procedure Demetri ESTRELLA [facility] Start: 02-17-2022 End: 02-18-[address] LEO GARCIAS Facility:[facility] Start: 10-29-2021 End: 10-30-[address] LEO GARCIAS Facility:[facility] Start: 10-22-2021 Adult health examination Louis Garcias Other [employer] Other Start: 08-28-2021 End: 08-28-[address] DEMETRI ESTRELLA Facility:[facility] Start: 08-25-2021 Encounter for preprocedural cardiovascular examination DR DEMETRI ESTRELLA [facility] Start: 08-25-2021 Encounter for preprocedural laboratory examination DR DEMETRI ESTRELLA [facility] Start: 08-25-[address] DEMETRI ESTRELLA [facility] ity:[facility] Start: 08-21-2021 End: 08-22-[address] DEMETRI ESTRELLA Facility:[facility] Start: 08-21-2021 End: 08-22-2021 Encounter for preprocedural cardiovascular examination DR DEMETRI ESTRELLA Facility:[facility] Start: 08-04-2021 End: 08-04-2021 Patient encounter procedure Demetri ESTRELLA [facility] Start: 07-29-2021 End: 07-30-[address] DEMETRI ESTRELLA Facility:[facility] Start: 05-05-2021 End: 05-05-[address] LEO GARCIAS Facility:[facility] Start: 04-01-2021 End: 04-01-2021 ambulatory Erika Bender Other [employer] Other Start: 04-01-2021 Office outpatient vi sit 15 minutes Kamjamarcus Bender [facility] Start: 03-04-2021 Office outpatient ne w 45 minutes Kamjamarcus Bender [facility] Start: 08-28-2019 Preoperative cardiovascular examination Leo Garcias Other [employer] Other Start: 07-06-2018 End: 07-07-2018 Patient encounter procedure DEFAULT PHYSICIAN Facility:[facility] Start: 07-04-2018 End: 07-05-2018 Patient encounter procedure DEFAULT PHYSICIAN Facility:[facility] Start: 07-01-2018 End: 07-02-2018 Patient encounter procedure DEFAULT PHYSICIAN Facility:[facility] Procedures Date Procedure Procedure Detail Performing Clinician Start: 10-29-[address] BETZY GARCIAS Comment on above: Performed By: #### C BC #### [facility] [address] [place] [address] Dr. Temo Mckeon Start: 08-28-2021 Extracorporeal shock [...] high dose seasonal, preservative-free Leo Garcias Other [employer] Other 03-23-2022 COVID-19 Pfizer (bivalent) Leo Garcias Other [employer] Other 02-24-2022 influenza virus vaccine, split virus (incl. purified surface antigen) Leo Garcias Other [employer] Other 02-24-2022 influenza, high dose seasonal, preservative-free Leo Garcias Other [employer] Other 03-26-2021 SARS-CoV-2 (COVID-19 ) mRNA BNT-162b2 vax Demetri [facility] Comment on above: Result Comment: 2021: [id number] 02-21-2021 influenza virus vaccine, split virus (incl. purified surface antigen) Leo Garcias Other [employer] Other 02-07-2021 influenza virus vaccine, unspecified formulation Demetri ESTRELLA [facility] 07-30-2020 COVID-19 Vaccine Pfi zer - Documentation Purposes Only Erika Bender Other [facility] 07-08-2020 COVID-19 Vaccine Pfi zer - Documentation Purposes Only Erika Bender Other [facility] 05-10-2020 SARS-CoV-2 (COVID-19 ) mRNA BNT-162b2 vax Demetri [employer] Comment on above: Result Comment: pt h as had 3 shots to date 02-29-2020 influenza virus vaccine, split virus (incl. purified surface antigen) Leo Garcias Other [employer] Other 02-16-2019 influenza virus vaccine, split virus (incl. purified surface antigen) Leo Garcias Other [employer] Other 01-24-2018 influenza virus vaccine, split virus (incl. purified surface antigen) Leo Garcias Other [employer] Other 01-24-2018 influenza virus vaccine, unspecified formulation Demetrirafael ESTRELLA [facility] 01-24-2018 pneumococcal Conjuga te, unspecified formulation; Translations: [Need for prophylactic vaccination against Streptococcus pneumoniae (pneumococcus)] Leo Garcias Other [employer] Other 01-24-2018 pneumococcal polysaccharide vaccine, 23 valent Demetri ESTRELLA [facility] 02-18-2017 influenza virus vaccine, split virus (incl. purified surface antigen) Leo Garcias Other [employer] Other 02-18-2017 influenza virus vaccine, unspecified formulation Demetri ESTRELLA [facility] 02-12-2016 influenza virus vaccine, split virus (incl. purified surface antigen) Leo Garcias Other [employer] Other 02-12-2016 influenza virus vaccine, unspecified formulation Demetri ESTRELLA [facility] 02-28-2015 tetanus and diphther ia toxoids, adsorbed, preservative free, for adult use (5 Lf of tetanus toxoid and 2 Lf of diphtheria toxoid) Leo Garcias Other [employer] Other 02-28-2015 pneumococcal conjuga te vaccine, 13 valent Leo Garcias Other [employer] Other 02-16-2014 tetanus and diphther ia toxoids, adsorbed, preservative free, for adult use (5 Lf of tetanus toxoid and 2 Lf of diphtheria toxoid) Leo Garcias Other [employer] Other 02-08-2013 tetanus and diphther ia toxoids, adsorbed, preservative free, for adult use (5 Lf of tetanus toxoid and 2 Lf of diphtheria toxoid) Leo Garcias Other [employer] Other 02-17-2012 tetanus and diphther ia toxoids, adsorbed, preservative free, for adult use (5 Lf of tetanus toxoid and 2 Lf of diphtheria toxoid) Leo Garcias Other [employer] Other 02-13-2009 pneumococcal polysaccharide vaccine, 23 valent Leo Garcias Other [employer] Other 10-17-2003 Td(adult) unspecifie d formulation Demetri ESTRELLA [facility] Payers Date Payer Category Payer Medicare 2022 Private Health Insurance 1958 Medicare [id number] 2.1 [id number] 1959 Private Health Insurance [id number] 1946 Unknown [id number] 2.16.8 40.1.143770.3.579.2.647 1946 Unknown [id number] 2.16.8 40.1.557247.3.579.2.647 1946 Unknown [id number] 2.16.8 40.1.383535.3.579.2.647 1946 Unknown [id number] 2.16.84 0.1.726115.3.579.2.593 1946 Unknown [id number] 2.16.84 0.1.040996.3.579.2.593 1946 Unknown [id number] 2.16.84 0.1.052824.3.579.2.593 1946 Unknown [id number] 2.16.84 0.1.476760.3.579.2.593 1946 Unknown [id number] 2.16.84 0.1.545953.3.579.2.593 1946 Unknown [id number] 2.16.84 0.1.907894.3.579.2.593 1946 Unknown [id number] 2.16.84 0.1.834389.3.579.2.593 1946 Unknown [id number] 2.16.84 0.1.017896.3.579.2.593 1946 Unknown [id number] 2.16.84 0.1.766082.3.579.2.1259 1946 Unknown [id number] 2.16. 840.1.043971.3.579.2.196 1946 Unknown [id number] 2.16. 840.1.954166.3.579.2.196 1946 Unknown [id number] 2.16. 840.1.166960.3.579.2.196 1946 Unknown [id number] 2.16. 840.1.283871.3.579.2.196 1946 Unknown [id number] 2.16.8 40.1.433490.3.579.2.727 Unknown Social History Date Type Detail Facility Start: 01-30-2021 End: 08-31-2023 Tobacco smoking status Never smoked tobacco (finding) [employer] Other Sex Assigned At Male [employer] Other Tobacco smoking status Never [facility] Functional Status Date Assessment Result Facility 08-31-2023 Functional Status N/A [facility] 08-24-2022 Functional Status N/A [facility] 02-23-2022 Functional Status N/A [facility] Clinical Notes 12-09-2020 to 08-31-2023 Note Date [...] urethra. Follow these instructions at home: Take wolh-eku-lwwrrwx and prescription medicines only as told by [...] provider. Document Revised: 11/12/2021 Document Reviewed: 11/12/2021 [employer] Patient Education 2022 [employer] 08/31/2023 09:07:49 Urinary Incontinence Urinary Incontinence [...] nerve stimulation). ?For women, using a medical educator to prevent urine leaks. This is a [...] right after experiencing incontinence. General instructions Take stie-vmv-yirlcly and prescription medicines only as told by [...] important. Where to find more information National [place] of Diabetes and Digestive and Kidney Diseases: www.niddk.nih.gov [employer]: www.urologyhealth.org Contact a health care [...] provider. Document Revised: 11/29/2020 Document Reviewed: 11/29/2020 [employer] Patient Education 2022 [employer] 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 Other 09-20-2023 [facility] Note Chief Complaint: Patient [...] should problems arise Shalonda Rai MD, MPH, [facility], [facility], [facility] Interventional Cardiology Pager Email: [email or web address] Evaluation note* Encounter Date Diagnosis Assessment Notes Treatment Notes Treatment Clinical Notes Jan, Lumbosacral spondylosis with radiculopathy (ICD-10 - M47.27) [employer] Other 06-23-2023 Evaluation note* Encounter Date Diagnosis [...] use, the patient reduces the risk for MA, CVA, HTN, cardiac dysrhythmias and sudden cardiac [...] High risk medication use (ICD-10 - Z79.899) [employer] Other 04-17-2023 Hospital Discharge instructions Patient Education [...] urethra. Follow these instructions at home: Take fnmx-xgh-deypocg and prescription medicines only as told by [...] 04/26/2006 Document Revised: 03/21/2019 Document Reviewed: 05/31/2017 [employer] Patient Education 2019 [employer] 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 Other 10-17-2022 Hospital Discharge instructions Patient Education 02/23/2022 11:32:02 Kidney Stones, Iqrx-qb-Mhiy Kidney Stones Kidney stones are rock-like masses [...] Follow these instructions at home: Medicines Take rsgd-wtx-fpnjcsv and prescription medicines only as told by [...] Document Reviewed: 09/12/2019 Else[employer] Patient Education 2020 [employer]. Follow Up Care 08/28/2021 11:53:17 With:SAMEER MONTIEL, Demetri Sequeira, URL Address: [facility] [address] , [place] [address] [phone] When:08/24/2022 [facility] 03-28-2022 Hospital Discharge instructions Patient Education 08/04/2021 [...] Follow these instructions at home: Medicines Take jeqr-gkn-trkmwjt and prescription medicines only as told by [...] 05/15/2008 Document Revised: 08/07/2019 Document Reviewed: 03/17/2017 [employer] Patient Education 2020 [employer]. 08/04/2021 09:25:02 Calorie Counting for Weight Loss [...] 04/26/2006 Document Revised: 01/13/2019 Document Reviewed: 03/26/2017 [employer] Patient Education 2020 [employer]. 08/04/2021 09:24:51 Benign Prostatic Hyperplasia Benign Prostatic [...] urethra. Follow these instructions at home: Take abcj-fua-yxoijsl and prescription medicines only as told by [...] 04/26/2006 Document Revised: 03/21/2019 Document Reviewed: 05/31/2017 [employer] Patient Education 2020 [employer]. Follow Up Care 01/30/2021 10:09:00 With:SAMEER MONTIEL, LEXUS Carson Address: [facility] [address] , [place] [address] [phone] When: Unknown Comments:Will schedule RT ESWLF/u in 3-4 month due to new medication [facility] 11-23-2021 Evaluation note* Encounter Date Diagnosis Assessment Notes Treatment Notes Treatment Clinical Notes Mar, Dyspnea on exertion (ICD-10 - R06.00) Mar, Leg edema (ICD-10 - R60.0) [employer] Other 10-26-2021 Evaluation note* Encounter Date Diagnosis Assessment Notes Treatment Notes Treatment Clinical Notes Feb, Dyspnea on exertion (ICD-10 - R06.00) Feb, Leg edema (ICD-10 - R60.0) [employer] Other 08-02-2021 NoteHNO ID: [id number] Author: Amara Esqueda MD Service: ? Author [...] its relevant components. Amara Esqueda MD [facility] Future App[facility]ments Appointment Date:11/07/2021 09:30:00 AM Scheduled Provider:Demetri ESTRELLA MD Location:[facility] Appointment Type:URO Office Visit [facility] evaluation + Plan note Future Appointments Appointment Date:08/24/2022 10:30:00 AM Scheduled Provider:Demetri ESTRELLA MD Location:[facility] Appointment Type:URO Office Visit [facility] evaluation + Plan note Future Appointments Appointment Date:03/01/2023 09:15:00 AM Scheduled Provider:Demetri ESTRELLA MD Location:[facility] Appointment Type:URO Office Visit [facility] evaluation noteNo InformationNortMohound Other History general Narrative - Reported* Type Description Date Medical History ADITHYA Medical History hypertension Medical History heart disease Surgical History bypass triple Surgical History 2 knee replacements Surgical History hiatal hernia Surgical History cataract x 2 Hospitalization History as above [employer] Other Hisfxge general Narrative - Reported* Type Description Date [...] OF KIDNEY STONE Hospitalization History as above [employer] Other Hospital course Narrative No data available for this section [facility] Progress note No data available for this section [facility] Summary Purpose Family History No Family History [...] 1 Lumbar spondylosis ( M47.816) Referral Organization [facility] yashira Referring Provider First Name Leo Referring Provider Last Name Dieter Referring Provider Specialty Internal Me dicine Referred Organization [facility] Referred Provider Samantha Contreras Referred Address [address] [place], [place],[address] Referred Provider Specialty Pain Medicin e Referral [...] section and content) DATE CREATED AUTHOR 07/07/2018 [facility] DATE CREATED AUTHOR AUTHOR'S ORGANIZ ATION 12/09/2020 [facility] DATE CREATED AUTHOR AUTHOR'S ORGANIZ ATION 03/10/2021 [facility] DATE CREATED AUTHOR AUTHOR'S ORGANIZ ATION 03/01/2022 [facility] DATE CREATED AUTHOR AUTHOR'S ORGANIZ ATION 01/29/2023 [facility] DATE CREATED AUTHOR AUTHOR'S ORGANIZ ATION 05/21/2023 [facility] DATE CREATED AUTHOR AUTHOR'S ORGANIZ ATION 07/16/2023 [facility] DATE CREATED AUTHOR AUTHOR'S ORGANNILO ATION 09/01/2023 [facility] REASON FOR VISIT (unrecogniz ed section and content) Ref by Dr. Garcias for Dyspnea on exertion4 wk f/u MONTES, Leg Edema4 MONTH FOLLOW UPNo InformationWELLNESSlab resultsWELLNESSNo Information3 month Follow up Patient Care team informatio n (unrecognized section and content) Personnel Name: DIETER LEO Address: Address: [address] [place] [address] Personnel Name: LEO GARCIAS DO Address: Address: [address] [place] [address] Personnel Name: LEO GARCIAS DO Address: Address: [address] [place] [address] FOR RECORDS PERTAINING TO PATIENTS WHO ARE [...] BE BASED ON THE PRIMARY CLINICAL RECORDS. [employer] provides no warranty or guarantee of the accuracy or completeness of information in this document.
--- NOTE | 2023-09-13 14:56 | P.CN_ITS ---
Consult Note: HPI Data of Consult Patient: known to practice within the last 3 years Consult date: 09/13/23 Requesting Physician: Mary Ann Villalobos MD Primary Care Provider: Leo Garcias DO Consult Narrative Reason for consult: low back pain Narrative: 78yom who presents for assessment. continues to recover from his recent spinal cord stim implant. states that has not had dramatic improvement yet, but still has some incisional pain. continues on percocet tid prn. currently in cardiac rehab. denies adverse med side effects. cc:: CC: Mary Ann Villalobos MD Review of Systems ROS0 Status of ROS 10 or more systems reviewed and unremark able except as noted in history and below [facility] Medical History (Updated 08/24/23 @ 12:58 by Christina Blanca NP) Dyspnea on exertion ?R06.09 - Other forms of dyspnea (ICD-10) Arthritis ?M19.90 - Unspecified osteoarthritis, unspecified site (ICD-10) Right shoulder pain ?M25.511 - Pain in right shoulder (ICD-10) Back pain ?M54.9 - Dorsalgia, unspecified (ICD-10) Depression ?F32.A - Depression, unspecified (ICD-10) S/P extracorporeal shock wave therapy ?Z98.890 - Other specified postprocedural states (ICD-10) Glaucoma ?H40.9 - Unspecified glaucoma (ICD-10) Cataract ?H26.9 - Unspecified cataract (ICD-10) GERD (gastroesophageal reflux disease) ?K21.9 - Gastro-esophageal reflux disease without esophagitis (ICD-10) Hernia ?K46.9 - Unspecified abdominal hernia without obstruction or gangrene (ICD- 10) High cholesterol ?E78.00 - Pure hypercholesterolemia, unspecified (ICD-10) Right leg weakness ?R29.898 - Other symptoms and signs involving the musculoskeletal system (ICD-10) CVA (cerebral vascular accident) ?I63.9 - Cerebral infarction, unspecified (ICD-10) Extremity edema ?R60.0 - Localized edema (ICD-10) Coronary artery disease ?I25.10 - Atherosclerotic heart disease of [place] coronary artery without angina pectoris (ICD-10) Chronic low back pain ?M54.50 - Low back pain, unspecified (ICD-10) ?G89.29 - Other chronic pain (ICD-10) Lumbar stenosis ?M48.061 - Spinal stenosis, lumbar region without neurogenic claudication (ICD-10) Uses continuous positive airway pressure (CPAP) ventilation at home ?Z99.89 - Dependence on other enabling machines and devices (ICD-10) History of stroke ?Z86.73 - Personal history of transient ischemic attack (TIA), and cerebral infarction without residual deficits (ICD-10) Osteoarthritis ?M19.90 - Unspecified osteoarthritis, unspecified site (ICD-10) Upper back pain ?M54.9 - Dorsalgia, unspecified (ICD-10) Low back pain ?M54.50 - Low back pain, unspecified (ICD-10) Anxiety ?F41.9 - Anxiety disorder, unspecified (ICD-10) Kidney stone ?N20.0 - Calculus of kidney (ICD-10) Sleep apnea ?G47.30 - Sleep apnea, unspecified (ICD-10) Hypertension ?I10 - Essential (primary) hypertension (ICD-10) Surgical History History of colonoscopy ?Z98.890 - Other specified postprocedural states (ICD-10) History of heart artery stent ?Z95.5 - Presence of coronary angioplasty implant and graft (ICD-10) History of cardiac catheterization ?Z98.890 - Other specified postprocedural states (ICD-10) S/P cataract extraction and insertion of intraocular lens ?Z98.49 - Cataract extraction status, unspecified eye (ICD-10) ?Z96.1 - Presence of intraocular lens (ICD-10) S/P triple vessel bypass ?Z95.1 - Presence of aortocoronary bypass graft (ICD-10) History of knee replacement ?Z96.659 - Presence of unspecified artificial knee joint (ICD-10) History of repair of hiatal hernia ?Z98.890 - Other specified postprocedural states (ICD-10) ?Z87.19 - Personal history of other diseases of the digestive system (ICD-10) Family History Other Family history of cancer Family history of diabetes mellitus Family history of heart disease Family history of hypertension Family history of myocardial infarction Social History Within the past year, how often did you have a drink containing alcohol: monthly or less Smoking status: Never smoker Highest level of school completed/degree received: high school graduate Meds Home Medications and Allergies Home Medications ?Medication ?Instructions ?Recorded ?Confirmed ?Type amlodipine 10 mg-benazepril 20 mg 1 cap PO DAILY 02/08/23 09/06/23 History capsule aspirin 81 mg tablet,delayed 81 mg PO DAILY 02/08/23 09/06/23 History release (Adult Aspirin Regimen) atorvastatin 80 mg tablet 80 mg PO DAILY 02/08/23 09/06/23 History citalopram 20 mg tablet 20 mg PO DAILY 02/08/23 09/06/23 History clopidogrel 75 mg tablet 75 mg PO DAILY 02/08/23 09/06/23 History finasteride 5 mg tablet 5 mg PO DAILY 02/08/23 08/24/23 History furosemide 20 mg tablet 20 mg PO DAILY 02/08/23 08/24/23 History isosorbide mononitrate 60 mg 60 mg PO DAILY 02/08/23 08/24/23 History tablet,extended release 24 hr metoprolol succinate 50 mg 50 mg PO DAILY 02/08/23 09/06/23 History tablet,extended release 24 hr oxybutynin chloride 15 mg 15 mg PO DAILY 02/08/23 09/06/23 History tablet,extended release 24 hr tamsulosin 0.4 mg capsule 0.4 mg PO Q24H 02/08/23 09/06/23 History oxycodone-acetaminophen 7.5 mg-325 1 tab PO TID PRN pain #90 tabs 08/17/23 09/06/23 Rx mg tablet (Percocet) cephalexin 500 mg capsule 500 mg PO TID #21 caps 09/06/23 Rx Allergies Allergy/AdvReac Type Severity Reaction Status Date / Time No Known Drug Allergies Allergy Verified 09/06/23 09:11 Exam Narrative Exam Narrative: Psych-alert and oriented x 3. Attentive and appropriate, constitutionally normal, displays normal mood and affect per situation.? There are no obvious deficits in memory, reasoning, or intellect.? Skin-no obvious rashes, bruising, erythema noted to the patient's area of pain. Extremities- extremities are warm with minimal edema and palpable pulses. Lumbar-no significant tenderness to palpation noted in the lumbar spine and paraspinal musculature.? Pain is elicited with extension, and lateral rotation of the lumbar spine. Range of motion is slightly diminished with these motions due to pain.? Coordination remains intact.? Gait remains non-antalgic. Assessment and Plan Assessment and Plan (1) Lumbar spondylosis: (2) Lumbar stenosis with neurogenic claudication: Plan 78yom who presents for assessment. continues to heal from recent implantation. spinal cord stim settings were changed today by spinal cord stim rep, and states that he is currently getting much better coverage than he was in past several days. hopeful that this will continue to give him more benefit. bandages were removed. incisions appear to be clean, dry, and intact. instructed patient to gradually increase light activity, and he is now able to shower. he expressed understanding. follow up in 3-4 weeks.
== END 2023-09-13 13:35 | disposition home or self-care (01) ==
LOC: PM 13:34
PROVIDERS: PCP Internal Medicine; Visit Provider Anesthesiology
DX: M47.816 Spondylosis without myelopathy or radiculopathy, lumbar region (principal); M48.062 Spinal stenosis, lumbar region with neurogenic claudication
CPT/HCPCS: G0463

== ENCOUNTER 2023-10-13 08:47 | Outpatient (OUT) | payer MEDICARE, OTHER, SELFPAY ==
--- OUTSIDE RECORDS SUMMARY | 2023-10-13 08:52 | XMS_ITS | CCD ---
Author Organization [facility] CliniSywv Care Team Providers Care Pipe Installer Name Role Phone PHYSICIAN, DEFAULT Admitting Unavailable PHYSICIAN, DEFAULT Attending Unavailable LEO GARCIAS Primary Care Unavailable PHYSICIAN, DEFAULT Admitting Unavailable PHYSICIAN, DEFAULT Attending Unavailable LEO GARCIAS Primary Care Unavailable PHYSICIAN, DEFAULT Admitting Unavailable PHYSICIAN, DEFAULT Attending Unavailable LEO GARCIAS Primary Care Unavailable LEO GARCIAS Primary Care Physician Erika Bender Unavailable DIETER, DR VAZQUEZ Primary Care Unavailable SAMEER, DR FOX Admitting Unavailable ESTRELLA, DR FOX Attending Unavailable ESTRELLA, DR FOX Consulting Unavailable BALL, DR VAZQUEZ Admitting Unavailable BALL, DR VAZQUEZ Attending Unavailable BALL, DR VAZQUEZ Primary Care Unavailable BALL, DR VAZQUEZ Consulting Unavailable ESTRELLA, DR DEMETRI Fernandezitting Unavailable ESTRELLA, DR FOX Attending Unavailable BALL, DR VAZQUEZ Primary Care Unavailable ESTRELLA, DR FOX Consulting Unavailable CARLO, DR TANISHA Deleon Consulting Unavailable BALL, DR VAZQUEZ Admitting Unavailable BALL, DR VAZQUEZ Attending Unavailable BALL, DR VAZQUEZ Primary Care Unavailable BALL, DR VAZQUEZ Consulting Unavailable BALL, DR VAZQUEZ Admitting Unavailable BALL, DR VAZQUEZ Attending Unavailable BALL, DR VAZQUEZ Primary Care Unavailable BALL, DR VAZQUEZ Consulting Unavailable CHRISTENSENRADU FULTON Consulting Unavailable ESTRELLA, DR FOX Admitting Unavailable ESTRELLA, DR FOX Attending Unavailable BALL, DR VAZQUEZ Primary Care Unavailable ESTRELLA, DR FOX Consulting Unavailable ESTRELLA, DR FOX Admitting Unavailable ESTRELLA, DR FOX Attending Unavailable BALL, DR VAZQUEZ Primary Care Unavailable ESTRELLA, DR FOX Consulting Unavailable CANDICE MENDENHALL Consulting Unavailable AFSHAN GTZ Consulting Unavaila ble SAMEER, DR FOX Admitting Unavailable ESTRELLA, DR FOX Attending Unavailable BALL, DR VAZQUEZ Primary Care Unavailable Dieter, Leo Unavailable SHALONDA RAI Attending Unavailable Orquidea Huston Attending Unavailable Wilfredo MONTIEL, Mary Ann Chacko Attending Unavailable Wilfredo MONTIEL, Mary Ann Chacko Attending Unavailable Wilfredo MONTIEL, Mary Ann Chacko Attending Unavailable Wilfredo MONTIEL, Mary Ann Chacko Attending Unavailable Wilfredo MONTIEL, Mary Ann Chacko Attending Unavailable Wilfredo MONTIEL, Mary Ann Chacko Attending Unavailable CLAUDETTE RICHARDSON Attending Unavailable CLAUDETTE RICHARDSON Attending Unavailable Allergies Allergy Classification Reported Allergen(s) Allergy Type Date of Onset Reaction(s) Facility (1 source) 10254,00; Translations: [53934,00] Propensity to adverse reactions (disorder) 9 [facility] Repository (2 sources) patient allergy list reviewed by nurse or physicia Propensity to adverse reactions 9 Comment:Done [employer] Other (1 source) No Known Medication Allergies; Translations: [No Known Medication Allergies] Propensity to adverse reactions (disorder) [facility] Repository Medications Current Medications Medication Drug [...] Daily, # 90 tab(s), Refills(s) 3, Pharmacy: [facility]/pharmacy #[id number], 164, cm, 08/24/22 10:54:00 EDT, Height/Length [...] 10-27-2019 Multi Vitamin+ Refill(s) 0 Start Date: 6/19/20 Status: Ordered 24 hr oxybutynin chloride 15 mg extended release oral tablet (11 sources) Cholinergic Muscarinic Antagonist Start: 06-25-2023 take 1 tablet by mouth once daily oxybutynin 15 mg ER Tab 15 mg = 1 tab(s), Oral, Daily, # 90 tab(s), Refills(s) 3, Pharmacy: [facility]/pharmacy #[id number], 164, cm, 08/24/22 10:54:00 EDT, Height/Length Dosing, 138, kg, 08/24/22 10:54:00 EDT, Weight Dosing Start Date: 06/25/23 Status: Ordered Start: 06-26-2022 take 1 tablet by [facility] every twenty-four hours oxyBUTYnin Chloride ER 15 MG 1 tablet Orally Once a day Jun, Active Start: 08-04-2021 take 1 tablet by mouth once da bettye oxybutynin 15 mg ER Tab 15 mg = 1 tab(s), Oral, Daily, # 30 tab(s), Refills(s) 11, [id number], cm, 08/04/21 8:56:00 EDT, Height/Length Dosing, 139, kg, 08/04/21 8:56:00 EDT, Weight Dosing Start Date: 08/04/21 Status: Ordered tamsulosin hydrochloride 0.4 mg oral capsule (13 sources) alpha-Adrenergic Remy Start: 07-12-2023 take 1 capsule by mouth twice daily tamsulosin 0.4 mg Cap 0.4 mg = 1 cap(s), Oral, BID, # 180 cap(s), Refills(s) 3, [id number] 164, cm, 08/24/22 10:54:00 EDT, Height/Length Dosing, 138, kg, 08/24/22 10:54:00 EDT, Weight Dosing Start Date: 07/12/23 Status: Ordered Start: 06-26-2022 take 1 capsule by mo [facility] twice daily tamsulosin 0.4 mg Cap 0.4 mg = 1 cap(s), Oral, BID, # 180 cap(s), Refills(s) 3, Pharmacy: [facility]/pharmacy #[id number], 164, cm, 02/23/22 11:10:00 EDT, Height/Length Dosing, 139, kg, 10/17/22 11:10:00 EDT, Weight Dosing Start Date: 06/26/22 Status: Ordered Start: 02-23-2022 End: 06-23-2022 take 1 capsule by mouth twice daily tamsulosin 0.4 mg Cap 0.4 mg = 1 cap(s), Oral, BID, X 30 day(s), # 60 cap(s), Refills(s) 3, Pharmacy: [facility]/pharmacy #[id number], 164, cm, 02/23/22 11:10:00 EDT, Height/Length Dosing, 139, kg, 02/23/22 11:10:00 EDT, Weight Dosing Start Date: 02/23/22 Stop Date: 06/23/22 Status: Ordered Start: 11-22-2020 End: 11-17-2021 take 1 capsule by mouth twice daily Flomax 0.4 mg Cap 0.4 mg = 1 cap(s), Oral, BID, X 90 day(s), # 180 cap(s), Refills(s) 3, Pharmacy: [facility]/pharmacy #[id number], 164, cm, 07/26/20 9:40:00 EDT, Height/Length Dosing, 138.5, kg, 07/26/20 9:40:00 EDT, Weight Dosing Start Date: 11/22/20 Stop Date: 11/17/21 Status: Ordered take 1 capsule by [facility] every twenty-four hours Flomax 0.4 MG 1 [...] Coronary arteriosclerosis; Translations: [Atherosclerotic heart disease of [place] coronary artery without angina pectoris] Onset: 01-27-2023 [...] unspecified] Chronic Other aftercare (3 sources) Other care home (current) drug therapy; Translations: [OTH 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 AIDE CURRENT DRUG THERAPY] Onset: 08-25-2021 Episodic Other aftercare (2 sources) Long-term current use of drug therapy; Translations: [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 Take [id number] and prescription medicines only as told by [...] the medicine (more content not included)... Normal [facility] Urology Office/Clinic Noteon 08-31-2023 Urology Office/Clinic [...] with voice recognition artificial intelligence software, specifically [id number], [employer] and or Hu[employer]. Substitutions may have occurred due to the [...] Urnls Dip Stick Auto w/o Microscopy POC 13279 3. 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 Normal [facility] Comment on above: Result Comment: Elec tronically Signed By: ISAAC Huston APRN, Orquidea Blue\.edi\Date and Time Signed: 08/31/23 09:08 EDT RAD - MISCon 08-17-2023 RAD - MISC [id number] IFF Normal [facility] Office Visiton 01-27-2023 Follow-up visit [id number] Ralph Almanzar ald H 1945 M Date Provider Department Center 01/27/2023 [id number]-NKECHIJEREMIAHTANO, EHAB CARD [facility] No family history on file Level of Service:19373 LA OFFICE/OUTPATIENT ESTABLISHED MOD MDM 30-39 MIN Normal [facility] 36on 07-07-2022 36 Notes: Rx refused. N ot seen since December 2020. Normal [facility] BNPon 02-17-2022 Natriuretic peptide B (Bld) [Mass/Vol] 330.0 pg/mL Normal <=1,800.0 [facility] Comment on above: Performed By: #### B CARTON CATCHER, TSH, BMP #### [facility] [address] [place] [address] Dr. Temo Mckeon CBC AUTO DIFFon 02-17-2022 BASO # 0.1 103/ul Normal 0.0-0.1 [facility] Comment on above: Performed By: #### C BC #### [facility] [address] [place] [address] Dr. Temo Mckeon Basophils/100 WBC (Bld) 0.4 % Normal 0.2-2.0 [facility] Comment on above: Performed By: #### C BC #### [facility] [address] [place] [address] Dr. Temo Mckeon EO # 0.3 103/ul Normal 0.0-0.7 [facility] Comment on above: Performed By: #### C BC #### [facility] [address] [place] [address] Dr. Temo Mckeon Eosinophils/100 WBC (Bld) 2.8 % Normal 0.9-7.0 [facility] Comment on above: Performed By: #### C BC #### [facility] [address] [place] [address] Dr. Temo Mckeon Erythrocyte distribution width (RBC) [Ratio] 13.5 % Normal 11.0-15.0 [facility] Comment on above: Performed By: #### C BC #### [facility] [address] [place] [address] Dr. Temo Mckeon Hematocrit (Bld) [Volume fraction] 38.5 % Critically low 42.0-54.0 [facility] Comment on above: Performed By: #### C BC #### [facility] [address] [place] [address] Dr. Temo Mckeon Hemoglobin (Bld) [Mass/Vol] 12.5 g/dL Critically low 14.0-18.0 [facility] Comment on above: Performed By: #### C BC #### [facility] [address] [place] [address] Dr. Temo Mckeon IG # 0.11 10e3/ul Critically high 0.00-0.03 [facility] Comment on above: Performed By: #### C BC #### [facility] [address] [place] [address] Dr. Temo Mckeon IG % 0.9 % Critically high 0.0-0.5 [facility] Comment on above: Performed By: #### C BC #### [facility] [address] [place] [address] Dr. Temo Mckeon LYMPH # 2.1 103/ul Normal 1.2-3.8 [facility] Comment on above: Performed By: #### C BC #### [facility] [address] [place] [address] Dr. Temo Mckeon Lymphocytes/100 WBC (Bld) 17.5 % Critically low 20.5-60.0 [facility] Comment on above: Performed By: #### C BC #### [facility] [address] [place] [address] Dr. Temo Mckeon MANUAL DIFF REQ NO Normal [facility] Comment on above: Performed By: #### C BC #### [facility] [address] [address] [address] Temo Mckeon MCH (RBC) [Entitic mass] 30.6 pg Normal 25.9-34.0 [facility] Comment on above: Performed By: #### C BC #### [facility] [address] [place] [address] Dr. Temo Mckeon MCHC (RBC) [Mass/Vol] 32.5 g/dL Normal 29.9-35.2 [facility] Comment on above: Performed By: #### C BC #### [facility] [address] [place] [address] Dr. Temo Mckeon MCV (RBC) [Entitic vol] 94.1 fL Critically high 80.0-94.0 [facility] Comment on above: Performed By: #### C BC #### [facility] [address] [place] [address] Dr. Temo Mckeon MONO # 0.9 103/ul Critically high 0.3-0.8 [facility] Comment on above: Performed By: #### C BC #### [facility] [address] [place] [address] Dr. Temo Mckeon Monocytes/100 WBC (Bld) 7.9 % Normal 1.7-12.0 [facility] Comment on above: Performed By: #### C BC #### [facility] [address] [place] [address] Dr. Temo Mckeon NEUT # 8.4 103/ul Critically high 1.4-6.5 [facility] Comment on above: Performed By: #### C BC #### [facility] [address] [place] [address] Dr. Temo Mckeon Neutrophils/100 WBC (Bld) 70.5 % Normal 43.0-75.0 [facility] Comment on above: Performed By: #### C BC #### [facility] [address] [place] [address] Dr. Temo Mckeon Platelet mean volume (Bld) [Entitic vol] 10.5 fL Normal 9.5-13.5 [facility] Comment on above: Performed By: #### C BC #### [facility] [address] [address] [address] Temo Mckeon PLT 172 103/ul Normal 150-450 [facility] Comment on above: Performed By: #### C BC #### [facility] [address] [address] [address] Temo Mckeon RBC 4.09 106/ul Critically low 4.70-6.10 [facility] Comment on above: Performed By: #### C BC #### [facility] [address] [address] [address] Temo Mckeon WBC 11.9 103/ul Critically high 4.0-11.0 [facility] Comment on above: Performed By: #### C BC #### [facility] [address] [place] [address] Dr. Temo Mckeon PROF CHEM 8 (BAS METB)on Anion gap [Moles/Vol] 14.2 mmol/L Normal [facility] Comment on above: Performed By: #### B CARTON CATCHER, TSH, BMP #### [facility] [address] [address] [address] Temo Mckeon Calcium [Mass/Vol] 9.1 mg/dL Normal 8.5-10.1 [facility] Comment on above: Performed By: #### B CARTON CATCHER, TSH, BMP #### [facility] [address] [place] [address] Dr. Temo Mckeon Chloride [Moles/Vol] 105 mmol/L Normal 98-107 [facility] Comment on above: Performed By: #### B CARTON CATCHER, TSH, BMP #### [facility] [address] [place] [address] Dr. Temo Mckeon CO2 [Moles/Vol] 25.3 mmol/L Normal 21.0-32.0 [facility] Comment on above: Performed By: #### B CARTON CATCHER, TSH, BMP #### [facility] [address] [place] [address] Dr. Temo Mckeon Creatinine [Mass/Vol] 1.72 mg/dL Critically high 0.70-1.30 [facility] Comment on above: Performed By: #### B CARTON CATCHER, TSH, BMP #### [facility] [address] [place] [address] Dr. Temo Mckeon EGFR-AF ERITREAN 47 mL/min/1.73m2 Critically low >=60 [facility] Comment on above: Performed By: #### B CARTON CATCHER, TSH, BMP #### [facility] [address] [place] [address] Dr. Temo Mckeon EGFR-NON AF ERITREAN 39 mL/min/1.73m2 Critically low >=60 [facility] Comment on above: Performed By: #### B CARTON CATCHER, TSH, BMP #### [facility] [address] [place] [address] Dr. Temo Mckeon Glucose [Mass/Vol] 134 mg/dL Critically high 74-106 [facility] Comment on above: Performed By: #### B CARTON CATCHER, TSH, BMP #### [facility] [address] [place] [address] Dr. Temo Mckeon Potassium [Moles/Vol] 4.5 mmol/L Normal 3.5-5.1 [facility] Comment on above: Performed By: #### B CARTON CATCHER, TSH, BMP #### [facility] [address] [place] [address] Dr. Temo Mckeon Sodium [Moles/Vol] 140 mmol/L Normal 136-145 [facility] Comment on above: Performed By: #### B CARTON CATCHER, TSH, BMP #### [facility] [address] [place] [address] Dr. Temo Mckeon Urea nitrogen [Mass/Vol] 36.0 mg/dL Critically high 7.0-18.0 [facility] Comment on above: Performed By: #### B CARTON CATCHER, TSH, BMP #### [facility] [address] [place] [address] Dr. Temo Mckeon Urea nitrogen/Creatinine [Mass ratio] 20.9 mg/mg Normal [facility] Comment on above: Performed By: #### B CARTON CATCHER, TSH, BMP #### [facility] [address] [place] [address] Dr. Temo Mckeon TSHon 02-17-2022 TSH 1.708 uIU/mL Normal 0.358-3.740 [facility] Comment on above: Performed By: #### B CARTON CATCHER, TSH, BMP #### [facility] [address] [address] [address] Temo Mckeon XR KUB 1 VIEWon [...] RADU CHRISTENSEN Date: 2022-02-17 11:43 Normal [facility] METHYLMALONIC ACID (MMA)on 0 11-01-2021 Methylmalonic Acid, Serum 205 nmol/L Normal 0-378 [facility] Comment on above: Performed By: #### C BC #### [facility] [address] [address] [address] Temo Mckeon FOLATE ([facility])on 2 Folate >20.0 Normal >3.0 [facility] Comment on above: Result Comment: A se rum folate concentration of less than 3.1 ng/mL is considered to represent clinical deficiency. Performed By: #### B MP, ALT, LIPID #### [facility] [address] [address] [address] Temo Mckeon CBC AUTO DIFFon 10-29-2021 BASO # 0.1 103/ul Normal 0.0-0.1 [facility] Comment on above: Performed By: #### C BC #### [facility] [address] [place] [address] Dr. Temo Mckeon Basophils/100 WBC (Bld) 0.5 % Normal 0.2-2.0 [facility] Comment on above: Performed By: #### C BC #### [facility] [address] [place] [address] Dr. Temo Mckeon EO # 0.3 103/ul Normal 0.0-0.7 [facility] Comment on above: Performed By: #### C BC #### [facility] [address] [place] [address] Dr. Temo Mckeon Eosinophils/100 WBC (Bld) 3.3 % Normal 0.9-7.0 [facility] Comment on above: Performed By: #### C BC #### [facility] [address] [place] [address] Dr. Temo Mckeon Erythrocyte distribution width (RBC) [Ratio] 13.3 % Normal 11.0-15.0 [facility] Comment on above: Performed By: #### C BC #### [facility] [address] [place] [address] Dr. Temo Mckeon Hematocrit (Bld) [Volume fraction] 40.4 % Critically low 42.0-54.0 [facility] Comment on above: Performed By: #### C BC #### [facility] [address] [place] [address] Dr. Temo Mckeon Hemoglobin (Bld) [Mass/Vol] 13.4 g/dL Critically low 14.0-18.0 [facility] Comment on above: Performed By: #### C BC #### [facility] [address] [place] [address] Dr. Temo Mckeon IG # 0.06 10e3/ul Critically high 0.00-0.03 [facility] Comment on above: Performed By: #### C BC #### [facility] [address] [place] [address] Dr. Temo Mckeon IG % 0.6 % Critically high 0.0-0.5 [facility] Comment on above: Performed By: #### C BC #### [facility] [address] [place] [address] Dr. Temo Mckeon LYMPH # 2.2 103/ul Normal 1.2-3.8 [facility] Comment on above: Performed By: #### C BC #### [facility] [address] [place] [address] Dr. Temo Mckeon Lymphocytes/100 WBC (Bld) 22.6 % Normal 20.5-60.0 [facility] Comment on above: Performed By: #### C BC #### [facility] [address] [place] [address] Dr. Temo Mckeon MANUAL DIFF REQ NO Normal [facility] Comment on above: Performed By: #### C BC #### [facility] [address] [place] [address] Dr. Temo Mckeon MCH (RBC) [Entitic mass] 30.8 pg Normal 25.9-34.0 [facility] Comment on above: Performed By: #### C BC #### [facility] [address] [place] [address] Dr. Temo Mckeon MCHC (RBC) [Mass/Vol] 33.2 g/dL Normal 29.9-35.2 [facility] Comment on above: Performed By: #### C BC #### [facility] [address] [place] [address] Dr. Temo Mckeon MCV (RBC) [Entitic vol] 92.9 fL Normal 80.0-94.0 [facility] Comment on above: Performed By: #### C BC #### [facility] [address] [place] [address] Dr. Temo Mckeon MONO # 0.7 103/ul Normal 0.3-0.8 [facility] Comment on above: Performed By: #### C BC #### [facility] [address] [place] [address] Dr. Temo Mckeon Monocytes/100 WBC (Bld) 7.6 % Normal 1.7-12.0 [facility] Comment on above: Performed By: #### C BC #### [facility] [address] [address] [address] Temo Mckeon NEUT # 6.2 103/ul Normal 1.4-6.5 [facility] Comment on above: Performed By: #### C BC #### [facility] [address] [address] [address] Temo Mckeon Neutrophils/100 WBC (Bld) 65.4 % Normal 43.0-75.0 [facility] Comment on above: Performed By: #### C BC #### [facility] [address] [place] [address] Dr. Temo Mckeon Platelet mean volume (Bld) [Entitic vol] 10.5 fL Normal 9.5-13.5 [facility] Comment on above: Performed By: #### C BC #### [facility] [address] [place] [address] Dr. Temo Mckeon PLT 169 103/ul Normal 150-450 [facility] Comment on above: Performed By: #### C BC #### [facility] [address] [place] [address] Dr. Temo Mckeon RBC 4.35 106/ul Critically low 4.70-6.10 [facility] Comment on above: Performed By: #### C BC #### [facility] [address] [place] [address] Dr. Temo Mckeon WBC 9.5 103/ul Normal 4.0-11.0 [facility] Comment on above: Performed By: #### C BC #### [facility] [address] [place] [address] Dr. Temo Mckeon FERRITINon 10-29-2021 Ferritin [Mass/Vol] 423.0 ng/mL Critically high 26.0-388.0 [facility] Comment on above: Performed By: #### C BC #### [facility] [address] [place] [address] Dr. Temo Mckeon IRON AND TIBCon 10-29-2021 % SATURATION 25.6 % Normal [facility] Comment on above: Performed By: #### C BC #### [facility] [address] [address] [address] Temo Mckeon Iron [Mass/Vol] 79.0 ug/dL Normal 65.0-175.0 [facility] Comment on above: Performed By: #### C BC #### [facility] [address] [address] [address] Temo Mckeon TIBC DIRECT 308.0 ug/dL Normal 250.0-450.0 [facility] Comment on above: Performed By: #### C BC #### [facility] [address] [address] [address] Temo Mckeon LIPID PROFILEon 10-29-2021 CHOL-HDL RATIO NORM SEE BELOW Normal [facility] Comment on above: Result Comment: 3.3 - 4.4 LOW RISK 4.4 - 7.1 AVERAGE RISK 7.1 - 11.0 MODERATE RISK >11.0 HIGH RISK Performed By: #### B MP, ALT, LIPID #### [facility] [address] [address] [address] Temo Mckeon Cholesterol [Mass/Vol] 93 mg/dL Normal <=200 [facility] Comment on above: Performed By: #### B MP, ALT, LIPID #### [facility] [address] [address] [address] Temo Mckeon Cholesterol in HDL [Mass/Vol] 40 mg/dL Normal 40-60 [facility] Comment on above: Performed By: #### B MP, ALT, LIPID #### [facility] [address] [address] [address] Temo Mckeon Cholesterol in LDL [Mass/Vol] 35.4 mg/dL Normal [facility] Comment on above: Performed By: #### B MP, ALT, LIPID #### [facility] [address] [id number] Temo Mckeon Cholesterol.total/C holesterol in HDL [Mass ratio] 2.3 {ratio} Normal [facility] Comment on above: Performed By: #### B MP, ALT, LIPID #### [facility] [address] [address] [address] Temo Mckeon HDL NORMAL > or = 60 mg/dl - LO W CARDIOVASCULAR RISK <40 mg/dl - HIGH CARDIOVASCULAR RISK Normal [facility] Comment on above: Performed By: #### B MP, ALT, LIPID #### [facility] [address] [address] [address] Temo Mckeon LDL CALC NORMAL SEE BELOW Normal [facility] [place] Comment on above: Result Comment: <100 mg/dl OPTIMAL 100 - 129 mg/dl NEAR OR ABOVE OPTIMAL 130 - 159 mg/dl BORDERLINE HIGH 160 - 189 mg/dl HIGH >190 mg/dl VERY HIGH Performed By: #### B MP, ALT, LIPID #### [facility] [address] [address] [address] Temo Mckeon Triglyceride [Mass/Vol] 88 mg/dL Normal <=150 [facility] Comment on above: Performed By: #### B MP, ALT, LIPID #### [facility] [address] [address] [address] Temo Mckeon VLDL CALC 17.6 mg/dL Normal [facility] Comment on above: Performed By: #### B MP, ALT, LIPID #### [facility] [address] [address] [address] Temo Mckeon PROF CHEM 8 (BAS METB)on Anion gap [Moles/Vol] 14.6 mmol/L Normal [facility] Comment on above: Performed By: #### B MP, ALT, LIPID #### [facility] [address] [address] [address] Temo Mckeon Calcium [Mass/Vol] 8.8 mg/dL Normal 8.5-10.1 [facility] Comment on above: Performed By: #### B MP, ALT, LIPID #### [facility] [address] [address] [address] Temo Mckeon Chloride [Moles/Vol] 106 mmol/L Normal 98-107 [facility] Comment on above: Performed By: #### B MP, ALT, LIPID #### [facility] [address] [place] [address] Dr. Temo Mckeon CO2 [Moles/Vol] 23.8 mmol/L Normal 21.0-32.0 [facility] Comment on above: Performed By: #### B MP, ALT, LIPID #### [facility] [address] [address] [address] Temo Mckeon Creatinine [Mass/Vol] 1.57 mg/dL Critically high 0.70-1.30 [facility] Comment on above: Performed By: #### B MP, ALT, LIPID #### [facility] [address] [place] [address] Dr. Temo Mckeon EGFR-AF ERITREAN 52 mL/min/1.73m2 Critically low >=60 [facility] Comment on above: Performed By: #### B MP, ALT, LIPID #### [facility] [address] [place] [address] Dr. Temo Mckeon EGFR-NON AF ERITREAN 43 mL/min/1.73m2 Critically low >=60 [facility] Comment on above: Performed By: #### B MP, ALT, LIPID #### [facility] [address] [address] [address] Temo Mckeon Glucose [Mass/Vol] 148 mg/dL Critically high 74-106 [facility] Comment on above: Performed By: #### B MP, ALT, LIPID #### [facility] [address] [place] [address] Dr. Temo Mckeon Potassium [Moles/Vol] 4.4 mmol/L Normal 3.5-5.1 [facility] Comment on above: Performed By: #### B MP, ALT, LIPID #### [facility] [address] [place] [address] Dr. Temo Mckeon Sodium [Moles/Vol] 140 mmol/L Normal 136-145 [facility] Comment on above: Performed By: #### B MP, ALT, LIPID #### [facility] [address] [place] [address] Dr. Temo Mckeon Urea nitrogen [Mass/Vol] 31.0 mg/dL Critically high 7.0-18.0 [facility] Comment on above: Performed By: #### B MP, ALT, LIPID #### [facility] [address] [place] [address] Dr. Temo Mckeon Urea nitrogen/Creatinine [Mass ratio] 19.7 mg/mg Normal [facility] Comment on above: Performed By: #### B MP, ALT, LIPID #### [facility] [address] [place] [address] Dr. Temo Mckeon SGPTon 10-29-2021 ALT [Catalytic activity/Vol] 39 U/L Normal 16-63 [facility] Comment on above: Performed By: #### B MP, ALT, LIPID #### [facility] [address] [place] [address] Dr. Temo Mckeon VITAMIN B12on 10-29-2021 Cobalamin (Vitamin B12) [Mass/Vol] 675.0 pg/mL Normal 193.0-986.0 [facility] Comment on above: Performed By: #### C BC #### [facility] [address] [place] [address] Dr. Temo Mckeon XR KUB 1 VIEWon [...] MARTA HALE Date: 2021-08-29 19:34 Normal [facility] CBC AUTO DIFFon 08-21-2021 BASO # 0.0 103/ul Normal 0.0-0.1 [facility] Comment on above: Performed By: #### C BC #### [facility] [address] [place] [address] Dr. Temo Mckeon Basophils/100 WBC (Bld) 0.3 % Normal 0.2-2.0 [facility] Comment on above: Performed By: #### C BC #### [facility] [address] [address] [address] Temo Mckeon EO # 0.3 103/ul Normal 0.0-0.7 [facility] Comment on above: Performed By: #### C BC #### [facility] [address] [place] [address] Dr. Temo Mckeon Eosinophils/100 WBC (Bld) 3.2 % Normal 0.9-7.0 [facility] Comment on above: Performed By: #### C BC #### [facility] [address] [place] [address] Dr. Temo Mckeon Erythrocyte distribution width (RBC) [Ratio] 13.5 % Normal 11.0-15.0 [facility] Comment on above: Performed By: #### C BC #### [facility] [address] [place] [address] Dr. Temo Mckeon Hematocrit (Bld) [Volume fraction] 38.8 % Critically low 42.0-54.0 [facility] Comment on above: Performed By: #### C BC #### [facility] [address] [place] [address] Dr. Temo Mckeon Hemoglobin (Bld) [Mass/Vol] 12.8 g/dL Critically low 14.0-18.0 [facility] Comment on above: Performed By: #### C BC #### [facility] [address] [place] [address] Dr. Temo Mckeon IG # 0.05 10e3/ul Critically high 0.00-0.03 [facility] Comment on above: Performed By: #### C BC #### [facility] [address] [place] [address] Dr. Temo Mckeon IG % 0.5 % Normal 0.0-0.5 [facility] Comment on above: Performed By: #### C BC #### [facility] [address] [place] [address] Dr. Temo Mckeon LYMPH # 1.8 103/ul Normal 1.2-3.8 [facility] Comment on above: Performed By: #### C BC #### [facility] [address] [address] [address] Temo Mckeon Lymphocytes/100 WBC (Bld) 19.6 % Critically low 20.5-60.0 [facility] Comment on above: Performed By: #### C BC #### [facility] [address] [address] [address] Temo Mckeon MANUAL DIFF REQ NO Normal [facility] [place] Comment on above: Performed By: #### C BC #### [facility] [address] [address] [address] Temo Mckeon MCH (RBC) [Entitic mass] 31.1 pg Normal 25.9-34.0 [facility] Comment on above: Performed By: #### C BC #### [facility] [address] [place] [address] Dr. Temo Mckeon MCHC (RBC) [Mass/Vol] 33.0 g/dL Normal 29.9-35.2 [facility] Comment on above: Performed By: #### C BC #### [facility] [address] [place] [address] Dr. Teom Mckeon MCV (RBC) [Entitic vol] 94.4 fL Critically high 80.0-94.0 [facility] Comment on above: Performed By: #### C BC #### [facility] [address] [place] [address] Dr. Temo Mckeon MONO # 0.7 103/ul Normal 0.3-0.8 [facility] Comment on above: Performed By: #### C BC #### [facility] [address] [place] [address] Dr. Temo Mckeon Monocytes/100 WBC (Bld) 7.5 % Normal 1.7-12.0 [facility] Comment on above: Performed By: #### C BC #### [facility] [address] [place] [address] Dr. Temo Mckeon NEUT # 6.4 103/ul Normal 1.4-6.5 [facility] Comment on above: Performed By: #### C BC #### [facility] [address] [place], [place] [id number] Dr. Temo Mckeon Neutrophils/100 WBC (Bld) 68.9 % Normal 43.0-75.0 [facility] Comment on above: Performed By: #### C BC #### [facility] [address] [place] [address] Dr. Temo Mckeon Platelet mean volume (Bld) [Entitic vol] 10.2 fL Normal 9.5-13.5 [facility] Comment on above: Performed By: #### C BC #### [facility] [address] [place] [address] Dr. Temo Mckeon PLT 160 103/ul Normal 150-450 [facility] Comment on above: Performed By: #### C BC #### [facility] [address] [place] [address] Dr. Temo Mckeon RBC 4.11 106/ul Critically low 4.70-6.10 [facility] [place] Comment on above: Performed By: #### C BC #### [facility] [address] [address] [address] Temo Mckeon WBC 9.3 103/ul Normal 4.0-11.0 [facility] Comment on above: Performed By: #### C BC #### [facility] [address] [place] [address] Dr. Temo Mckeon [facility] SARS-CoV-2 (COVID-19) RNA PRADEEP+probe Ql (Unsp spec) Not detected Normal NOT DETECTED [facility] Comment on above: Result Comment: This test is not yet approved or cleared by the [place] FDA. When there are no FDA-approved or cleared tests available, and other criteria are met, FDA can make tests available under an emergency access mechanism called an Emergency Use Authorization (EUA). The EUA for this test is supported by the [place] [employer] of Health and Human Service's (HHS's) declaration [...] SARS-CoV-2. Performed By: #### C BC #### [facility] [address] [place] [address] Dr. Temo Mckeon PROF CHEM 8 (BAS METB)on Anion gap [Moles/Vol] 12.4 mmol/L Normal [facility] Comment on above: Performed By: #### C BC #### [facility] [address] [place] [address] Dr. Temo Mckeon Calcium [Mass/Vol] 8.6 mg/dL Normal 8.5-10.1 [facility] Comment on above: Performed By: #### C BC #### [facility] [address] [place] [address] Dr. Temo Mckeon Chloride [Moles/Vol] 105 mmol/L Normal 98-107 [facility] Comment on above: Performed By: #### C BC #### [facility] [address] [place] [address] Dr. Temo Mckeon CO2 [Moles/Vol] 27.0 mmol/L Normal 22.0-30.0 [facility] Comment on above: Performed By: #### C BC #### [facility] [address] [place] [address] Dr. Temo Mckeon Creatinine [Mass/Vol] 1.57 mg/dL Critically high 0.66-1.25 [facility] Comment on above: Performed By: #### C BC #### [facility] [address] [place] [address] Dr. Temo Mckeon EGFR-AF ERITREAN 52 mL/min/1.73m2 Critically low >=60 [facility] Comment on above: Performed By: #### C BC #### [facility] [address] [place] [address] Dr. Temo Mckeon EGFR-NON AF ERITREAN 43 mL/min/1.73m2 Critically low >=60 [facility] Comment on above: Performed By: #### C BC #### [facility] [address] [address] [address] Temo Mckeon Glucose [Mass/Vol] 145 mg/dL Critically high 74-106 [facility] Comment on above: Performed By: #### C BC #### [facility] [address] [address] [address] Temo Mckeon Potassium [Moles/Vol] 4.4 mmol/L Normal 3.4-5.0 [facility] Comment on above: Performed By: #### C BC #### [facility] [address] [address] [address] Temo Mckeon Sodium [Moles/Vol] 140 mmol/L Normal 137-145 [facility] Comment on above: Performed By: #### C BC #### [facility] [address] [address] [address] Temo Mckeon Urea nitrogen [Mass/Vol] 32.0 mg/dL Critically high 7.0-18.0 [facility] Comment on above: Performed By: #### C BC #### [facility] [address] [address] [address] Temo Mckeon Urea nitrogen/Creatinine [Mass ratio] 20.4 mg/mg Normal [facility] Comment on above: Performed By: #### C BC #### [facility] [address] [address] [address] Temo Mckeon PROTIMEon 08-21-2021 INR Coag (PPP) [Relative time] 1.04 {INR} Normal [facility] Comment on above: Performed By: #### C BC #### [facility] [address] [address] [address] Temo Mckeon INR GUIDELINES SEE BELOW Normal [facility] Comment on above: Result Comment: APPLE RED INR: 2.0 - 3.0 CONDITIONS NOT LISTED BELOW 2.5 - 3.5 FOR PROSTHETIC HEART VALVE REPLACEMENT 2.5 - 3.5 RECURRENT THROMBOSIS Performed By: #### C BC #### [facility] [address] [place], [place] [id number] Dr. Temo Mckeon PT Coag (PPP) [Time] 11.2 s Normal 9.0-11.6 [facility] Comment on above: Performed By: #### C BC #### [facility] [address] [place] [address] Dr. Temo Mckeon PTTon 08-21-2021 aPTT Coag (Bld) [Time] 25.2 s Normal 22.3-36.2 [facility] Comment on above: Performed By: #### C BC #### [facility] [address] [place] [address] Dr. Temo Mckeon XR KUB 1 VIEWon [...] TANISHA MATOS Date: 2021-07-29 09:21 Normal [facility] 04-10 SARS-CoV-2 (COVID-19) RNA PRADEEP+probe Ql (Unsp spec) Not detected Normal NOT DETECTED [facility] Comment on above: Result Comment: This test is not yet approved or cleared by the [place] FDA. When there are no FDA-approved or cleared tests available, and other criteria are met, FDA can make tests available under an emergency access mechanism called an Emergency Use Authorization (EUA). The EUA for this test is supported by the [place] [employer] of Health and Human Service's (HHS's) declaration [...] consistent with SARS-CoV-2. Performed By: #### C [facility] #### [facility] [address] [place], [place] [address] angio chest PE protocolon 03-07-2021 CT angio chest PE protocol [facility] [place] [address] [place] [address] CT Scan Report Signed Patient: Lenin Almanzar MR#: [id number] 71 : 1945 Acct:[id number] Age/Sex: 75 / M ADM Date: 03/07/21 Loc: CT Room: Type: [facility] Attending Dr: Erika Bender MD Ordering [...] Balwinder Zambrano M.D.03/07/2021 2:01 PM Dictation Location: [address] [address] Transcribed By: [facility] 03/07/21 1401 Dictated By: Balwinder Zambrano DO 03/07/21 1359 Signed By: 03/07/21 1401 Normal [facility] echo transthoracicon [facility] echo transthoracic [facility] [place] [address] [place] [id number] Echocardiogram Signed Patient: Lenin Almanzar MR#: [id number] 71 : 1945 Acct:[id number] Age/Sex: 75 / M ADM Date: 03/07/21 Loc: CT Room: Type: [facility] Attending Dr: Erika Bender MD Ordering Provider: Erika Bender MD Date of Service: 03/07/21 [facility] echo transthoracic: DYSPNEA Copies to: MD Genesis [...] DO 03/07/21 1351 Signed By: 03/07/21 1449 [facility] ISTAT XRay CREon 03-07-2021 Creatinine [Mass/Vol] 1.5 mg/dL High 0.6-1.3 [facility] Comment on above: Result Comment: ER/E SD physician is notified/shown all ISTAT results. Critical values may be confirmed by laboratory testing if deemed necessary by ER attending doctor. Performed By: #### I SCRE #### [facility] [address] [place] [address] Point of Care testing , ISTAT GFR ( 55 [facility] Comment on above: Result Comment: GFR estimated reference range: According to KDOQI guidelines, <60 ml/min/1.73m2 is sufficient to diagnose a patient with chronic kidney disease. PERFORMED BY: [place] [address] PATHOLOGIST PHOTOGRAPHIC PROCESS SCREEN MAKER POOJA MYERS M.D. Performed By: #### I SCRE #### [facility] [address] [place] [address] Point of Care testing , ISTAT GFR (Non- Am 46 [facility] Comment on above: Performed By: #### I SCRE #### [facility] [address] [place], [place] [id number] [facility] Point of Care testing , Vital Signs Date Time Vital Sign Value Performing Clinician Facility 02-01-2023 09:30-0400 Body height 162.56 cm Leo Garcias Other [facility] Other 02-01-2023 09:30-0400 Body mass index (BMI) [Ratio] 49.6 kg/m2 Leo Ball Other [facility] Other 02-01-2023 09:30-0400 Body weight 131.09 kg Leo Ball Other [facility] Other 02-01-2023 09:30-0400 Diastolic blood pressure 83 mm[Hg] Leo Ball Other [facility] Other 02-01-2023 09:30-0400 Respiratory rate 20 /min Leo Ball Other [facility] Other 02-01-2023 09:30-0400 SaO2% (BldA) [Mass fraction] 97 % Leo Ball Other [facility] Other 02-01-2023 09:30-0400 Systolic blood pressure 147 mm[Hg] Leo Ball Other [facility] Other 10-30-2022 09:00-0400 Body height 162.56 cm Leo Ball Other [facility] Other 10-30-2022 09:00-0400 Body mass index (BMI) [Ratio] 50.67 kg/m2 Leo Ball Other [facility] Other 10-30-2022 09:00-0400 Body weight 133.9 kg Leo Ball Other [facility] Other 10-30-2022 09:00-0400 Diastolic blood pressure 68 mm[Hg] Leo Ball Other [facility] Other 10-30-2022 09:00-0400 Respiratory rate 20 /min Leo Ball Other [facility] Other 10-30-2022 09:00-0400 SaO2% (BldA) [Mass fraction] 98 % Leo Ball Other [facility] Other 10-30-2022 09:00-0400 Systolic blood pressure 121 mm[Hg] Leo Ball Other [facility] Other 08-24-2022 10:32-0400 Blood Pressure Location Demetrirafael ESTRELLA [facility] 08-24-2022 10:32-0400 Diastolic blood pressure 73 mm[Hg] Demetri ESTRELLA [facility] 08-24-2022 10:32-0400 Heart rate 59 /min Demetri ESTRELLA [facility] 08-24-2022 10:32-0400 Respiratory rate 16 /min Demetri ESTRELLA [facility] 08-24-2022 10:32-0400 Systolic blood pressure 125 mm[Hg] Demetri ESTRELLA [facility] 06-30-2022 09:00-0500 Body height 162.56 cm Leo Ball Other [facility] Other 06-30-2022 09:00-0500 Body mass index (BMI) [Ratio] 51.52 kg/m2 Leo Ball Other [facility] Other 06-30-2022 09:00-0500 Body weight 136.17 kg Leo Ball Other [facility] Other 02-21-2023 09:00-0500 Diastolic blood pressure 84 mm[Hg] Leo Ball Other [facility] [employer] Other 06-30-2022 09:00-0500 Respiratory rate 20 /min Leo Ball Other [facility] [employer] Other 06-30-2022 09:00-0500 Systolic blood pressure 128 mm[Hg] Leo Ball Other [facility] Other 02-23-2022 11:07-0400 Blood Pressure Location Demetri ESTRELLA [facility] 02-23-2022 11:07-0400 Diastolic blood pressure 74 mm[Hg] Demetri ESTRELLA [facility] 02-23-2022 11:07-0400 Heart rate 76 /min Demetri ESTRELLA [facility] 02-23-2022 11:07-0400 Respiratory rate 16 /min Demetri ESTRELLA [facility] 02-23-2022 11:07-0400 Systolic blood pressure 128 mm[Hg] Demetri ESTRELLA [facility] 08-04-2021 08:51-0400 Blood Pressure Location Demetri ESTRELLA [facility] 08-04-2021 08:51-0400 Diastolic blood pressure 72 mm[Hg] Demetri ESTRELLA [facility] 08-04-2021 08:51-0400 Heart rate 63 /min Demetri ESTRELLA [facility] 08-04-2021 08:51-0400 Respiratory rate 16 /min [facility]LL[facility] 08-04-2021 08:51-0400 Systolic blood pressure 121 mm[Hg] Demetri ESTRELLA [facility] 04-01-2021 12:45-0500 Body height 162.56 cm Erika Bender Other [facility] Other 04-01-2021 12:45-0500 Body mass index (BMI) [Ratio] 51.15 kg/m2 Erika Avilaban Other [facility] Other 04-01-2021 12:45-0500 Body temperature 97.6 [degF] Erika Avilaban Other [facility] Other 04-01-2021 12:45-0500 Body weight 135.17 kg Fitoal Margaritaban Other [facility] Other 04-01-2021 12:45-0500 Diastolic blood pressure 68 mm[Hg] Fitoal Margairtaban Other [facility] Other 04-01-2021 12:45-0500 Respiratory rate 20 /min Fitoal Margaritaban Other [facility] Other 04-01-2021 12:45-0500 SaO2% (BldA) [Mass fraction] 97 % Fitoal Margaritaban Other [facility] Other 04-01-2021 12:45-0500 Systolic blood pressure 140 mm[Hg] Erika Bender Other [facility] Other 03-04-2021 16:15-0400 Body height 162.56 cm Erika Bender Other [facility] Other 03-04-2021 16:15-0400 Body mass index (BMI) [Ratio] 51.15 kg/m2 Erika Bender Other [facility] Other 03-04-2021 16:15-0400 Body temperature 98.3 [degF] Erika Bender Other [facility] Other 03-04-2021 16:15-0400 Body weight 135.17 kg Erika Bender Other [facility] Other 03-04-2021 16:15-0400 Diastolic blood pressure 68 mm[Hg] Erika Bender Other [facility] Other 03-04-2021 16:15-0400 Respiratory rate 20 /min Erika Bender Other [facility] Other 03-04-2021 16:15-0400 SaO2% (BldA) [Mass fraction] 97 % Erika Bender Other [facility] Other 03-04-2021 16:15-0400 Systolic blood pressure 148 mm[Hg] Erika Bender Other [facility] Other Encounters Encounter Date Encounter Type Care Provider Facility Start: 10-06-2023 End: 10-06-2023 ambulatory CLAUDETTE RICHARDSON Not Available Start: 09-13-2023 End: 09-14-2023 ambulatory Mary Ann Villalobos MD Facility:[facility] Start: 09-06-2023 End: 09-07-2023 ambulatory Mary Ann Villalobos MD [facility] Start: 08-31-2023 End: 09-01-2023 ambulatory Orquidea X Benjych [facility] Start: 08-31-2023 End: 08-31-2023 Patient encounter procedure Orquidea X Orzech [facility] Start: 07-05-2023 End: 07-06-2023 ambulatory Mary Ann Villalobos MD [facility] Start: 06-21-2023 End: 06-22-2023 ambulatory Mary Ann Villalobos MD [facility] Start: 05-20-2023 End: 05-20-2023 ambulatory CLAUDETTE RICHARDSON Not Available Start: 03-08-2023 End: 03-09-2023 ambulatory Mary Ann Villalobos MD [facility] Start: 02-08-2023 End: 02-09-2023 ambulatory Mary Ann Villalobos MD [facility] Start: 02-01-2023 End: 02-01-2023 ambulatory Leo Garcias Other [facility] Other Start: 02-01-2023 Office outpatient vi sit 25 minutes Leo Garcias [facility] Start: 01-27-2023 End: 01-27-2023 ambulatory EHAB [facility] Start: 01-13-2023 End: 01-13-2023 ambulatory Leo Garcias Other [facility] Other Start: 01-13-2023 Telephone encounter Leo CHILDRESS [facility] Start: 11-09-2022 End: 11-09-2022 ambulatory Leo Garcias Other [facility] Other Start: 11-09-2022 Telephone encounter Leo Ball FP [facility] Start: 10-30-2022 End: 10-30-2022 ambulatory Leo Garcias Other [facility] Other Start: 10-30-2022 Patient encounter procedure Leo Garcias [facility] Start: 08-24-2022 End: 08-24-2022 Patient encounter procedure Demetri ESTRELLA [facility] Start: 07-08-2022 End: 07-08-2022 ambulatory Leo Garcias Other [facility] Other Start: 07-08-2022 Telephone encounter Leo CHILDRESS [facility] Start: 06-30-2022 End: 06-30-2022 ambulatory Leo Dieter Other [facility] [employer] Other Start: 06-30-2022 Office outpatient vi sit 25 minutes Leo Garcias [facility] Start: 02-23-2022 End: 02-23-2022 Patient encounter procedure Demetri ESTRELLA [facility] Start: 02-17-2022 End: 02-18-[address] LEO GARCIAS Facility:[facility]1 Start: 10-29-2021 End: 10-30-[address] LEO GARCIAS Facility:[facility] Start: 10-22-2021 Adult health examination Louis Garcias Other [employer] Other Start: 08-28-2021 End: 08-28-[address] DEMETRI ESTRELLA Facility:[facility] Start: 08-25-2021 Encounter for preprocedural cardiovascular examination DR DEMETRI ESTRELLA [facility] Start: 08-25-2021 Encounter for preprocedural laboratory examination DR DEMETRI ESTRELLA [facility] Start: 08-25-[address] DEMETRI ESTRELLA [facility] ity:[facility] Start: 08-21-2021 End: 08-22-[address] DEMETRI ESTRELLA Facility:[facility] Start: 08-21-2021 End: 08-22-2021 Encounter for preprocedural cardiovascular examination DR DEMETRI ESTRELLA Facility:[facility] Start: 08-04-2021 End: 08-04-2021 Patient encounter procedure Demetri ESTRELLA [facility] Start: 07-29-2021 End: 07-30-[address] DEMETRI ESTRELLA Facility:[facility] Start: 05-05-2021 End: 05-05-[address] LEO GARCIAS Facility:[facility] Start: 04-01-2021 End: 04-01-2021 ambulatory Kamal Chaban Other [employer] Other Start: 04-01-2021 Office outpatient vi sit 15 minutes Kamal Chaban [facility] Start: 03-04-2021 Office outpatient ne w 45 minutes Kamal Chaban [facility] Start: 08-28-2019 Preoperative cardiovascular examination Leo Garcias Other [employer] Other Start: 07-06-2018 End: 07-07-2018 Patient encounter procedure DEFAULT PHYSICIAN Facility:[facility] Start: 07-04-2018 End: 07-05-2018 Patient encounter procedure DEFAULT PHYSICIAN Facility:[facility] Start: 07-01-2018 End: 07-02-2018 Patient encounter procedure DEFAULT PHYSICIAN Facility:[facility] Procedures Date Procedure Procedure Detail Performing Clinician Start: 10-29-[address] BETZY GARCIAS Comment on above: Performed By: #### C BC #### [facility] [address] [place] [address] Dr. Temo Mckeon Start: 08-28-2021 Extracorporeal shock wave lithotripsy of calculus of kidney Demetri ESTRELLA Start: 01-26-2019 Cystoscopy Demetri ZIEGLER Start: 01-05-2019 [...] high dose seasonal, preservative-free Leo Garcias Other [employer] Other 03-23-2022 COVID-19 Pfizer (bivalent) Leo Garcias Other [employer] Other 02-24-2022 influenza virus vaccine, split virus (incl. purified surface antigen) Leo Garcias Other [employer] Other 02-24-2022 influenza, high dose seasonal, preservative-free Leo Garcias Other [employer] Other 03-26-2021 SARS-CoV-2 (COVID-19 ) mRNA BNT-162b2 vax Demetrirafael ESTRELLA [facility] Comment on above: Result Comment: 2021: [id number] 02-21-2021 influenza virus vaccine, split virus (incl. purified surface antigen) Leo Garcias Other [employer] Other 02-07-2021 influenza virus vaccine, unspecified formulation Demetri ESTRELLA [facility] 07-30-2020 COVID-19 Vaccine Pfi zer - Documentation Purposes Only Erika Bender Other [facility] 07-08-2020 COVID-19 Vaccine Pfi zer - Documentation Purposes Only Erika Bender Other [facility] 05-10-2020 SARS-CoV-2 (COVID-19 ) mRNA BNT-162b2 vax Demetri ESTRELLA [facility] Comment on above: Result Comment: pt h as had 3 shots to date 02-29-2020 influenza virus vaccine, split virus (incl. purified surface antigen) Leo Garcias Other [employer] Other 02-16-2019 influenza virus vaccine, split virus (incl. purified surface antigen) Leo Garcias Other [employer] Other 01-24-2018 influenza virus vaccine, split virus (incl. purified surface antigen) Leo Garcias Other [employer] Other 01-24-2018 influenza virus vaccine, unspecified formulation Demetri ESTRELLA [facility] 01-24-2018 pneumococcal Conjuga te, unspecified formulation; Translations: [Need for prophylactic vaccination against Streptococcus pneumoniae (pneumococcus)] Leo Garcias Other [employer] Other 01-24-2018 pneumococcal polysaccharide vaccine, 23 valent Demetri ESTRELLA [facility] 02-18-2017 influenza virus vaccine, split virus (incl. purified surface antigen) Leo Garcias Other [employer] Other 02-18-2017 influenza virus vaccine, unspecified formulation Demetri ESTRELLA [facility] 02-12-2016 influenza virus vaccine, split virus (incl. purified surface antigen) Leo Garcias Other [employer] Other 02-12-2016 influenza virus vaccine, unspecified formulation Demetri ESTRELLA [facility] 02-28-2015 tetanus and diphther ia toxoids, adsorbed, preservative free, for adult use (5 Lf of tetanus toxoid and 2 Lf of diphtheria toxoid) Leo Garcias Other [employer] Other 02-28-2015 pneumococcal conjuga te vaccine, 13 valent Leo Garcias Other [employer] Other 02-16-2014 tetanus and diphther ia toxoids, adsorbed, preservative free, for adult use (5 Lf of tetanus toxoid and 2 Lf of diphtheria toxoid) Leo Garcias Other [employer] Other 02-08-2013 tetanus and diphther ia toxoids, adsorbed, preservative free, for adult use (5 Lf of tetanus toxoid and 2 Lf of diphtheria toxoid) Leo Garcias Other [employer] Other 02-17-2012 tetanus and diphther ia toxoids, adsorbed, preservative free, for adult use (5 Lf of tetanus toxoid and 2 Lf of diphtheria toxoid) Leo Garcias Other [employer] Other 02-13-2009 pneumococcal polysaccharide vaccine, 23 valent Leo Garcias Other [employer] Other 10-17-2003 Td(adult) unspecifie d formulation Demetri ESTRELLA [facility] Payers Date Payer Category Payer Medicare 2022 Private Health Insurance 1958 Medicare [id number] 2.1 [id number] 1959 Private Health Insurance [id number] 1946 Unknown [id number] 2.16.8 40.1.942560.3.579.2.647 1946 Unknown [id number] 2.16.8 40.1.901145.3.579.2.647 1946 Unknown [id number] 2.16.8 40.1.012960.3.579.2.647 1946 Unknown [id number] 2.16.84 0.1.938195.3.579.2.593 1946 Unknown [id number] 2.16.84 0.1.589064.3.579.2.593 1946 Unknown [id number] 2.16.84 0.1.014687.3.579.2.593 1946 Unknown [id number] 2.16.84 0.1.043531.3.579.2.593 1946 Unknown [id number] 2.16.84 0.1.674768.3.579.2.593 1946 Unknown [id number] 2.16.84 0.1.921627.3.579.2.593 1946 Unknown [id number] 2.16.84 0.1.937651.3.579.2.593 1946 Unknown [id number] 2.16.84 0.1.423380.3.579.2.593 1946 Unknown [id number] 2.16.8 40.1.855435.3.579.2.727 1946 Unknown [id number] 2.16. 840.1.670960.3.579.2.196 1946 Unknown [id number] 2.16. 840.1.033524.3.579.2.196 1946 Unknown [id number] 2.16. 840.1.635365.3.579.2.196 1946 Unknown [id number] 2.16. 840.1.495825.3.579.2.196 1946 Unknown [id number] 2.16. 840.1.589165.3.579.2.196 1946 Unknown [id number] 2.16. 840.1.221733.3.579.2.196 1946 Unknown [id number] 2.16.84 0.1.544064.3.579.2.1259 1946 Unknown [id number] 2.16.84 0.1.229317.3.579.2.1259 Unknown Social History Date Type Detail Facility Start: 01-30-2021 End: 08-31-2023 Tobacco smoking status Never smoked tobacco (finding) [facility] [employer] Other Sex Assigned At Male [facility] [employer] Other Tobacco smoking status Never [facility] Functional Status Date Assessment Result Facility 08-31-2023 Functional Status N/A [facility] 08-24-2022 Functional Status N/A [facility] 02-23-2022 Functional Status N/A [facility] Clinical Notes 12-09-2020 to 08-31-2023 [...] urethra. Follow these instructions at home: Take suld-ony-olvndcn and prescription medicines only as told by [...] provider. Document Revised: 11/12/2021 Document Reviewed: 11/12/2021 [employer] Patient Education 2022 [employer]. 08/31/2023 09:07:49 Urinary Incontinence Urinary Incontinence Urinary [...] nerve stimulation). ?For women, using a medical donation professional to prevent urine leaks. This is a [...] right after experiencing incontinence. General instructions Take hcru-rva-dkfydcn and prescription medicines only as told by [...] important. Where to find more information National [place] of Diabetes and Digestive and Kidney Diseases: www.niddk.nih.gov [place] [employer]: www.urologyhealth.org Contact a health care [...] provider. Document Revised: 11/29/2020 Document Reviewed: 11/29/2020 [employer]Chat Patient Education 2022 [employer]. Follow Up Care 08/24/2022 11:22:07 With:ISAAC Huston APRN, [employer], [employer], URL Address: When: Unknown Comments:1 year with AKBAR With:SAMEER MONTIEL, Demetri Sequeira, URL Address: [facility] [address], [facility] [place] [address]- [phone] When: Unknown [facility] 02-01-2023 Evaluation note Encounter Date [...] in remission (ICD-10 - F17.211) Continue abstinence [employer] [facility] Chief Complaint: Patient here for 1 year follow up CAD and hypertension. Had labs in October 2022. Denies chest pain. Still has MONTES but states it's no more than his usual. Still goes to cardiac rehab twice a week. Has been wearing compression stockings for LE edema. HPI: Lenin Almanzar is a 77 y.o. male With a [...] should problems arise Shalonda Rai MD, MPH, [facility], [facility], [facility] Interventional Cardiology Pager Email: [email or web address]09-06-2023 Evaluation note* Encounter Date Diagnosis Assessment Notes Treatment Notes Treatment Clinical Notes Jan, Lumbosacral spondylosis with radiculopathy (ICD-10 - M47.27) [employer] Other 06-23-2023 Evaluation note* Encounter Date Diagnosis [...] High risk medication use (ICD-10 - Z79.899) [employer] Other 04-17-2023 Hospital Discharge instructions Patient Education [...] urethra. Follow these instructions at home: Take opdm-lie-kkdbjor and prescription medicines only as told by [...] 04/26/2006 Document Revised: 03/21/2019 Document Reviewed: 05/31/2017 [employer]Chat Patient Education 2020 [employer]. Follow Up Care 02/23/2022 11:36:40 With:SAMEER MONTIEL, Demetri Sequeira, URL Address: [facility] [address] , [place] [address]- When: Unknown [facility] 02-21-2023 Evaluation note* Encounter Date [...] since initial CVA > 20 years ago [employer] Other 10-17-2022 Hospital Discharge instructions Patient Education 02/23/2022 11:32:02 Kidney Stones, Puji-qd-Ivbg Kidney Stones Kidney stones are rock-like masses [...] Follow these instructions at home: Medicines Take ixic-vnp-zyoptri and prescription medicines only as told by [...] 10/12/2008 Document Revised: 09/12/2019 Document Reviewed: 09/12/2019 [employer]Chat Patient Education 2019 [employer]. Follow Up Care 08/28/2021 11:53:17 With:SAMEER MONTIEL, Demetri Sequeira, URAndrew Address: [facility] [address] , [place] [address] [phone] When:08/24/2022 [facility] 03-28-2022 Hospital Discharge instructions Patient [...] Follow these instructions at home: Medicines Take gtai-qxv-drzubxn and prescription medicines only as told by [...] 05/15/2008 Document Revised: 08/07/2019 Document Reviewed: 03/17/2017 [employer]Chat Patient Education 2020 [employer]. 08/04/2021 09:25:02 Calorie Counting for Weight Loss [...] 04/26/2006 Document Revised: 01/13/2019 Document Reviewed: 03/26/2017 [employer] Patient Education 2020 [employer]. 08/04/2021 09:24:51 Benign Prostatic Hyperplasia Benign Prostatic [...] urethra. Follow these instructions at home: Take vlcp-hkq-dhwgezs and prescription medicines only as told by [...] 04/26/2006 Document Revised: 03/21/2019 Document Reviewed: 05/31/2017 [employer]Chat Patient Education 2020 [employer]. Follow Up Care 01/30/2021 10:09:00 With:SAMEER MONTIEL, Demetri Sequeira, URL Address: [facility] [address] , [place] [address]- [phone] When: Unknown Comments:Will schedule RT ESWLF/u in 3-4 month due to new medication [facility] [place] 11-23-2021 Evaluation note* Encounter Date Diagnosis Assessment Notes Treatment Notes Treatment Clinical Notes Mar, Dyspnea on exertion (ICD-10 - R06.00) Mar, Leg edema (ICD-10 - R60.0) [employer] Other 10-26-2021 Evaluation note* Encounter Date Diagnosis Assessment Notes Treatment Notes Treatment Clinical Notes Feb, Dyspnea on exertion (ICD-10 - R06.00) Feb, Leg edema (ICD-10 - R60.0) [employer] Other 08-02-2021 NoteHNO ID: [id number] Author: Amara Esqueda MD Service: ? Author Type: Physician Type: Progress Notes Filed: 12/09/2020 11:42 AM Note Text: Tmax 17, 16 Pachy 490, 490 Gonio: Past Ocular Surgical/Laser History OD: PCIOL OS: PCIOL Medication Intolerance/Inefficacy/Barriers Current Medications Latanoprost qHS OU (started ~2017) Referred by Dr. Colins Mild POAG OU HV[facility] 10/23/20 (from outside [...] others. I have seen and examined Lenin Almanzar. I have discussed the case and the management of this patient's care with the Resident/Fellow, if applicable. I also have reviewed and agree with the assessment and plan as stated above and agree with all of its relevant components. Amara Esqueda MD [facility] Future Appointments Appointment Date:11/07/2021 09:30:00 AM Scheduled Provider:Demetri ESTRELLA MD Location:[facility] Appointment Type:URO Office Visit [facility] evaluation + Plan note Future Appointments Appointment Date:08/24/2022 10:30:00 AM Scheduled Provider:Demetri ESTRELLA MD Location:[facility] Appointment Type:URO Office Visit [facility] evaluation + Plan note Future Appointments Appointment Date:03/01/2023 09:15:00 AM Scheduled Provider:Demetri ESTRELLA MD Location:[facility] Appointment Type:URO Office Visit [facility] evalflhbzh noteNo InformationNort [employer] Other History general Narrative - Reported* Type Description Date Medical History ADITHYA Medical History hypertension Medical History heart disease Surgical History bypass triple Surgical History 2 knee replacements Surgical History hiatal hernia Surgical History cataract x 2 Hospitalization History as above [employer] Other History general Narrative - Reported* Type [...] OF KIDNEY STONE Hospitalization History as above [employer] Other Hospital course Narrative No data available for this section [facility] progress note No data available for this section [facility] Summary Purpose Family History No Family History Records FoundNo Family History Records FoundNo Family History Records FoundNo Family History Records FoundNo Family History Records Found No data available for this section No Family History Records FoundNo Family History [...] 1 Lumbar spondylosis ( M47.816) Referral Organization [facility] yashira Referring Provider First Name Leo Referring Provider Last Name Dieter Referring Provider Specialty Internal Me dicine Referred Organization [facility] Referred Provider Samantha Contreras Referred Address [address] [place], [place],[address] Referred Provider Specialty Pain Medicin e Referral Priority Routine General Notes Mr. Almanzar has a ch ronic history of low [...] section and content) DATE CREATED AUTHOR 07/07/2018 [facility] DATE CREATED AUTHOR AUTHOR'S ORGANIZ ATION 12/09/2020 [facility] DATE CREATED AUTHOR AUTHOR'S ORGANIZ ATION 03/10/2021 [facility] DATE CREATED AUTHOR AUTHOR'S ORGANIZ ATION 03/01/2022 [facility] DATE CREATED AUTHOR AUTHOR'S ORGANIZ ATION 01/29/2023 [facility] DATE CREATED AUTHOR AUTHOR'S ORGANIZ ATION 09/01/2023 [facility] DATE CREATED AUTHOR AUTHOR'S ORGANIZ ATION 09/23/2023 [facility] DATE CREATED AUTHOR AUTHOR'S ORGANIZ ATION 10/07/2023 [facility] d[facility] Specialists EPIC REASON FOR VISIT (unrecogniz ed section and content) Ref by Dr. Garcias for Dyspnea on exertion4 wk f/u MONTES, Leg Edema4 MONTH FOLLOW UPNo InformationWELLNESSlab resultsWELLNESSNo Information3 month Follow up Patient Care team informatio n (unrecognized section and content) Personnel Name: LEO GARCIAS DO Address: Address: [address] [place] [address] Personnel Name: LEO GARCIAS DO Address: Address: [address] [place] [address] Personnel Name: LEO GARCIAS DO Address: Address: [address] [place] [address] FOR RECORDS PERTAINING TO PATIENTS WHO ARE [...] BE BASED ON THE PRIMARY CLINICAL RECORDS. [facility] [employer] [facility]. provides no warranty or guarantee of the accuracy or completeness of information in this document.
--- NOTE | 2023-10-13 09:11 | PM.CN ---
Consult Note: HPI Data of Consult Patient: known to practice within the last 3 years Consult date: 09/13/23 Requesting Physician: Blessing Benavides NP Primary Care Provider: Leo Garcias DO Consult Narrative Reason for consult: low back pain Narrative: 78yom who presents for assessment chronic low back pain. Patient recently underwent spinal cord stimulator placement 09/06/23 with less than 50% improvement ongoing per patient. However, stimulator settings have not been adjusted since device was placed. Rep present today and they adjusted the settings with the patient reporting significant improvement. Pain was 10/10 upon arrival now 2/10 after walking for 10 minutes which is longer than he could previously tolerate. Patient finding mild benefit to [place] 7.5mg TID PRN, experiencing mild constipation. cc:: CC: Blessing Benavides NP Review of Systems ROS Status of ROS 10 or more systems reviewed and unremarkable except as noted in history and below Musculoskeletal Reports: back pain PFSH [facility] Medical History (Updated 08/24/23 @ 12:58 by Christina Blanca NP) Dyspnea on exertion ?R06.09 - Other forms of dyspnea (ICD-10) Arthritis ?M19.90 - Unspecified osteoarthritis, unspecified site (ICD-10) Right shoulder pain ?M25.511 - Pain in right shoulder (ICD-10) Back pain ?M54.9 - Dorsalgia, unspecified (ICD-10) Depression ?F32.A - Depression, unspecified (ICD-10) S/P extracorporeal shock wave therapy ?Z98.890 - Other specified postprocedural states (ICD-10) Glaucoma ?H40.9 - Unspecified glaucoma (ICD-10) Cataract ?H26.9 - Unspecified cataract (ICD-10) GERD (gastroesophageal reflux disease) ?K21.9 - Gastro-esophageal reflux disease without esophagitis (ICD-10) Hernia ?K46.9 - Unspecified abdominal hernia without obstruction or gangrene (ICD-10) High cholesterol ?E78.00 - Pure hypercholesterolemia, unspecified (ICD-10) Right leg weakness ?R29.898 - Other symptoms and signs involving the musculoskeletal system (ICD-10) CVA (cerebral vascular accident) ?I63.9 - Cerebral infarction, unspecified (ICD-10) Extremity edema ?R60.0 - Localized edema (ICD-10) Coronary artery disease ?I25.10 - Atherosclerotic heart disease of [place] coronary artery without angina pectoris (ICD-10) Chronic low back pain ?M54.50 - Low back pain, unspecified (ICD-10) ?G89.29 - Other chronic pain (ICD-10) Lumbar stenosis ?M48.061 - Spinal stenosis, lumbar region without neurogenic claudication (ICD-10) Uses continuous positive airway pressure (CPAP) ventilation at home ?Z99.89 - Dependence on other enabling machines and devices (ICD-10) History of stroke ?Z86.73 - Personal history of transient ischemic attack (TIA), and cerebral infarction without residual deficits (ICD-10) Osteoarthritis ?M19.90 - Unspecified osteoarthritis, unspecified site (ICD-10) Upper back pain ?M54.9 - Dorsalgia, unspecified (ICD-10) Low back pain ?M54.50 - Low back pain, unspecified (ICD-10) Anxiety ?F41.9 - Anxiety disorder, unspecified (ICD-10) Kidney stone ?N20.0 - Calculus of kidney (ICD-10) Sleep apnea ?G47.30 - Sleep apnea, unspecified (ICD-10) Hypertension ?I10 - Essential (primary) hypertension (ICD-10) Surgical History History of colonoscopy ?Z98.890 - Other specified postprocedural states (ICD-10) History of heart artery stent ?Z95.5 - Presence of coronary angioplasty implant and graft (ICD-10) History of cardiac catheterization ?Z98.890 - Other specified postprocedural states (ICD-10) S/P cataract extraction and insertion of intraocular lens ?Z98.49 - Cataract extraction status, unspecified eye (ICD-10) ?Z96.1 - Presence of intraocular lens (ICD-10) S/P triple vessel bypass ?Z95.1 - Presence of aortocoronary bypass graft (ICD-10) History of knee replacement ?Z96.659 - Presence of unspecified artificial knee joint (ICD-10) History of repair of hiatal hernia ?Z98.890 - Other specified postprocedural states (ICD-10) ?Z87.19 - Personal history of other diseases of the digestive system (ICD-10) Family History Other Family history of cancer Family history of diabetes mellitus Family history of heart disease Family history of hypertension Family history of myocardial infarction Social History Within the past year, how often did you have a drink containing alcohol: monthly or less Smoking status: Never smoker Highest level of school completed/degree received: high school graduate Meds Home Medications and Allergies Home Medications ?Medication ?Instructions ?Recorded ?Confirmed ?Type amlodipine 10 mg-benazepril 20 mg 1 cap PO DAILY 02/08/23 09/06/23 History capsule aspirin 81 mg tablet,delayed 81 mg PO DAILY 02/08/23 09/06/23 History release (Adult Aspirin Regimen) atorvastatin 80 mg tablet 80 mg PO DAILY 02/08/23 09/06/23 History citalopram 20 mg tablet 20 mg PO DAILY 02/08/23 09/06/23 History clopidogrel 75 mg tablet 75 mg PO DAILY 02/08/23 09/06/23 History finasteride 5 mg tablet 5 mg PO DAILY 02/08/23 08/24/23 History furosemide 20 mg tablet 20 mg PO DAILY 02/08/23 08/24/23 History isosorbide mononitrate 60 mg 60 mg PO DAILY 02/08/23 08/24/23 History tablet,extended release 24 hr metoprolol succinate 50 mg 50 mg PO DAILY 02/08/23 09/06/23 History tablet,extended release 24 hr oxybutynin chloride 15 mg 15 mg PO DAILY 02/08/23 09/06/23 History tablet,extended release 24 hr tamsulosin 0.4 mg capsule 0.4 mg PO Q24H 02/08/23 09/06/23 History oxycodone-acetaminophen 7.5 mg-325 1 tab PO TID PRN pain #90 tabs 08/17/23 09/06/23 Rx mg tablet (Percocet) cephalexin 500 mg capsule 500 mg PO TID #21 caps 09/06/23 Rx hydrocodone 7.5 mg-acetaminophen 1 tab PO TID PRN pain #90 tabs 09/22/23 Rx 325 mg tablet Allergies Allergy/AdvReac Type Severity Reaction Status Date / Time No Known Drug Allergies Allergy Verified 09/06/23 09:11 Exam Constitutional Documenting provider has reviewed patient's vital signs: yes Common normals: no apparent distress, oriented x3, healthy appearing, alert and well nourished General appearance: cooperative HENMT Common normals: normocephalic, hearing grossly normal bilaterally and moist oral mucous membranes Head and scalp: normocephalic Eye Common normals: PERRL Pupil: PERRL Neck & C-Spine Common normals: full ROM General: normal visual inspection Chest Common normals: inspection of chest normal Respiratory Common normals: normal respiratory effort, no retractions and no use of accessory muscles Back & Pelvis Lumbar spine/lower back: normal to inspection, ROM limited, pain with ROM and straight leg raise negative bilaterally Other: surgical incisions well healed Extremity Common normals: normal to inspection and full ROM Neuro Common normals: oriented x3, CN's II-XII intact bilaterally, moves all extremities, no focal motor deficits, no sensory deficits noted and deep tendon reflexes 2+ bilaterally Sensorium/orientation: alert Motor exam: strength 5/5 throughout and no movement abnormalities noted Psych Common normals: mental status grossly normal, thought process normal, cooperative, affect normal, speech normal and activity/motor behavior normal Speech: normal speech Thought process: normal thought process Results Additional Findings Additional findings: If on a controlled substance or opioids, I have checked an OAR[place] report on this patient and there are no aberrancies noted in the prescribing history.??If on a controlled substance or opioid a drug screen was completed and reviewed within the last year, and if there has not been a drug screen completed we ordered one today to monitor higher risk, state monitored pain medication use. As part of providing excellent, safe, comprehensive care, the following was completed at our patient's visit: 1. A medication reconciliation and review to ensure accurate knowledge of current/active medications, including asking our patients to inform us about any [id number] medications or herbal remedies/nutritional supplements/alternative remedies. 2. A review to specifically ensure our patients have had annual screening for screening for depression, screening for tobacco use, and screening for unhealthy alcohol use. For concerning screenings had a discussion with the patient, provided patient education, and recommended follow-up with primary care provider when appropriate. If patient noted with a risk of falling, they received education on strength, gait, and balance training to prevent future risk of falling. Assessment and Plan Assessment and Plan (1) Lumbar stenosis with neurogenic claudication: (2) Chronic prescription opiate use: Assessment and Plan: patient no longer needing percocet 7.5mg TID PRN, has found benefit to [place]co 7.5mg TID PRN. continue to wean as tolerated with assist of spinal cord stimulator (3) Chronic low back pain: Plan aquatherapy discussed and ordered continue norco 7.5mg TID PRN moderate to severe pain, encouraged to start weaning as tolerated at home f/u with [employer] as needed for reprogramming f/u with my office 1 month
== END 2023-10-13 08:48 | disposition home or self-care (01) ==
LOC: PM 08:47
PROVIDERS: PCP Internal Medicine; Visit Provider Nurse Practitioner
DX: M48.062 Spinal stenosis, lumbar region with neurogenic claudication (principal); Z79.891 Long term (current) use of opiate analgesic
CPT/HCPCS: G0463

== ENCOUNTER 2023-10-14 16:12 | Outpatient (RCR) | payer MEDICARE, OTHER, SELFPAY | END 2024-01-13 07:55 | disposition home or self-care (01) | LOC: PT 16:12 | PROVIDERS: PCP Internal Medicine; Visit Provider Nurse Practitioner | DX: M48.062 Spinal stenosis, lumbar region with neurogenic claudication (principal) | CPT/HCPCS: 97113; 97162; 97530 ==

== ENCOUNTER 2023-11-04 09:01 | Outpatient (OUT) | payer MEDICARE, OTHER, SELFPAY ==
[2023-11-04 09:57] LABS: Basophils Percent Auto 0.4 % (0.2-2.0); Eosinophils Absolute Auto 0.2 10^3/uL (0.0-0.7); Eosinophils Percent Auto 2.1 % (0.9-7.0); Hematocrit 39.8 % (42.0-54.0); Hemoglobin 13.2 g/dL (14.0-18.0); Immature Granulocytes Abs Auto 0.05 10^3/uL (0.00-0.03); Immature Granulocytes Pct Auto 0.5 % (0.0-0.5); Lymphocytes Absolute Auto 1.9 10^3/uL (1.2-3.8); Lymphocytes Percent Auto 19.1 % (20.5-60.0); Mean Corpuscular HGB Conc 33.2 g/dL (29.9-35.2); Mean Corpuscular Hemoglobin 31.1 pg (25.9-34.0); Mean Corpuscular Volume 93.6 fL (80.0-94.0); Monocytes Absolute Auto 0.6 10^3/uL (0.3-0.8); Monocytes Percent Auto 6.5 % (1.7-12.0); Neutrophils Percent Auto 71.4 % (43.0-75.0); Platelet Count 166 10^3/uL (150-450); Red Blood Count 4.25 10^6/uL (4.70-6.10); Red Cell Distribution Width 13.3 % (11.0-15.0); White Blood Count 9.9 10^3/uL (4.0-11.0)
[2023-11-04 11:12] LABS: Prostate Specific Antigen Scrn 0.86 ng/mL (<=4.00)
[2023-11-04 11:18] LABS: Alanine Aminotransferase 32 U/L (16-63); Albumin Globulin Ratio 1.1; Albumin Level 3.4 g/dL (3.4-5.0); Alkaline Phosphatase 102 U/L (46-116); Anion Gap 15.3; Aspartate Amino Transferase 18 U/L (15-37); BUN Creatinine Ratio 18.1; Bilirubin Total 0.8 mg/dL (0.2-1.0); Calcium 9.1 mg/dL (8.5-10.1); Chloride 106 mmol/L (98-107); Chol HDL Ratio 2.3; Cholesterol 104 mg/dL (<=200); Estimated GFR (African America 47 (>=60); Estimated GFR (Non-African Ame 39 (>=60); Globulin 3.2 g/dL; Glucose 154 mg/dL (74-106); HDL Cholesterol 46 mg/dL (40-60); LDL Cholesterol Calculated 41.4 mg/dL; Potassium 4.3 mmol/L (3.5-5.1); Sodium 142 mmol/L (136-145); Total Protein 6.6 g/dL (6.4-8.2); Triglycerides 83 mg/dL (<=150); VLDL CHOLESTEROL 16.6 mg/dL
== END 2023-11-04 09:02 | disposition home or self-care (01) ==
LOC: LAB 09:03
PROVIDERS: PCP Internal Medicine; Visit Provider Internal Medicine
DX: Z12.5 Encounter for screening for malignant neoplasm of prostate (principal); I10 Essential (primary) hypertension; I25.10 Atherosclerotic heart disease of native coronary artery without angina pectoris; E78.00 Pure hypercholesterolemia, unspecified
CPT/HCPCS: 36415; 80053; 80061; 85025; G0103

== ENCOUNTER 2023-11-10 08:45 | Outpatient (OUT) | payer MEDICARE, OTHER, SELFPAY ==
--- NOTE | 2023-11-10 08:59 | P.CN_ITS ---
Consult Note: HPI Data of Consult Patient: known to practice within the last 3 years Consult date: 09/13/23 Requesting Physician: Blessing Benavides NP Primary Care Provider: Leo Garcias DO Consult Narrative Reason for consult: low back pain Narrative: 78yom who presents for assessment chronic low back pain. Patient recently underwent spinal cord stimulator placement 09/06/23 with less than >50% improvement ongoing. Pain 6/10 in low back with weakness to bilateral legs. Patient noticing significant improvement in weakness from water therapy, patient would like to continue. Patient has stopped norco 7-325mg TID PRN as it was not beneficial. cc:: CC: Blessing Benavides NP Review of Systems ROS Status of ROS 10 or more systems reviewed and unremark able except as noted in history and below Musculoskeletal Reports: back pain PFSH PFSH Medical History Dyspnea on exertion ?R06.09 - Other forms of dyspnea (ICD-10) Arthritis ?M19.90 - Unspecified osteoarthritis, unspecified site (ICD-10) Right shoulder pain ?M25.511 - Pain in right shoulder (ICD-10) Back pain ?M54.9 - Dorsalgia, unspecified (ICD-10) Depression ?F32.A - Depression, unspecified (ICD-10) S/P extracorporeal shock wave therapy ?Z98.890 - Other specified postprocedural states (ICD-10) Glaucoma ?H40.9 - Unspecified glaucoma (ICD-10) Cataract ?H26.9 - Unspecified cataract (ICD-10) GERD (gastroesophageal reflux disease) ?K21.9 - Gastro-esophageal reflux disease without esophagitis (ICD-10) Hernia ?K46.9 - Unspecified abdominal hernia without obstruction or gangrene (ICD- 10) High cholesterol ?E78.00 - Pure hypercholesterolemia, unspecified (ICD-10) Right leg weakness ?R29.898 - Other symptoms and signs involving the musculoskeletal system (ICD-10) CVA (cerebral vascular accident) ?I63.9 - Cerebral infarction, unspecified (ICD-10) Extremity edema ?R60.0 - Localized edema (ICD-10) Coronary artery disease ?I25.10 - Atherosclerotic heart disease of [place] coronary artery without angina pectoris (ICD-10) Chronic low back pain ?M54.50 - Low back pain, unspecified (ICD-10) ?G89.29 - Other chronic pain (ICD-10) Lumbar stenosis ?M48.061 - Spinal stenosis, lumbar region without neurogenic claudication (I CD-10) Uses continuous positive airway pressure (CPAP) ventilation at home ?Z99.89 - Dependence on other enabling machines and devices (ICD-10) History of stroke ?Z86.73 - Personal history of transient ischemic attack (TIA), and cerebral infarction without residual deficits (ICD-10) Osteoarthritis ?M19.90 - Unspecified osteoarthritis, unspecified site (ICD-10) Upper back pain ?M54.9 - Dorsalgia, unspecified (ICD-10) Low back pain ?M54.50 - Low back pain, unspecified (ICD-10) Anxiety ?F41.9 - Anxiety disorder, unspecified (ICD-10) Kidney stone ?N20.0 - Calculus of kidney (ICD-10) Sleep apnea ?G47.30 - Sleep apnea, unspecified (ICD-10) Hypertension ?I10 - Essential (primary) hypertension (ICD-10) Surgical History History of colonoscopy ?Z98.890 - Other specified postprocedural states (ICD-10) History of heart artery stent ?Z95.5 - Presence of coronary angioplasty implant and graft (ICD-10) History of cardiac catheterization ?Z98.890 - Other specified postprocedural states (ICD-10) S/P cataract extraction and insertion of intraocular lens ?Z98.49 - Cataract extraction status, unspecified eye (ICD-10) ?Z96.1 - Presence of intraocular lens (ICD-10) S/P triple vessel bypass ?Z95.1 - Presence of aortocoronary bypass graft (ICD-10) History of knee replacement ?Z96.659 - Presence of unspecified artificial knee joint (ICD-10) History of repair of hiatal hernia ?Z98.890 - Other specified postprocedural states (ICD-10) ?Z87.19 - Personal history of other diseases of the digestive system (ICD-10) Family History Other Family history of cancer Family history of diabetes mellitus Family history of heart disease Family history of hypertension Family history of myocardial infarction Social History Within the past year, how often did you have a drink containing alcohol: monthly or less Smoking status: Never smoker Highest level of school completed/degree received: high school graduate Meds Home Medications and Allergies Home Medications ?Medication ?Instructions ?Recorded ?Confirmed ?Type amlodipine 10 mg-benazepril 20 mg 1 cap PO DAILY 02/08/23 09/06/23 History capsule aspirin 81 mg tablet,delayed 81 mg PO DAILY 02/08/23 09/06/23 History release (Adult Aspirin Regimen) atorvastatin 80 mg tablet 80 mg PO DAILY 02/08/23 09/06/23 History citalopram 20 mg tablet 20 mg PO DAILY 02/08/23 09/06/23 History clopidogrel 75 mg tablet 75 mg PO DAILY 02/08/23 09/06/23 History finasteride 5 mg tablet 5 mg PO DAILY 02/08/23 08/24/23 History furosemide 20 mg tablet 20 mg PO DAILY 02/08/23 08/24/23 History isosorbide mononitrate 60 mg 60 mg PO DAILY 02/08/23 08/24/23 History tablet,extended release 24 hr metoprolol succinate 50 mg 50 mg PO DAILY 02/08/23 09/06/23 History tablet,extended release 24 hr oxybutynin chloride 15 mg 15 mg PO DAILY 02/08/23 09/06/23 History tablet,extended release 24 hr tamsulosin 0.4 mg capsule 0.4 mg PO Q24H 02/08/23 09/06/23 History oxycodone-acetaminophen 7.5 mg-325 1 tab PO TID PRN pain #90 tabs 08/17/23 09/06/23 Rx mg tablet (Percocet) cephalexin 500 mg capsule 500 mg PO TID #21 caps 09/06/23 Rx hydrocodone 7.5 mg-acetaminophen 1 tab PO TID PRN pain #90 tabs 09/22/23 Rx 325 mg tablet Allergies Allergy/AdvReac Type Severity Reaction Status Date / Time No Known Drug Allergies Allergy Verified 09/06/23 09:11 Exam Constitutional Documenting provider has reviewed patient's vital signs: yes Common normals: no apparent distress, oriented x3, healthy appearing, alert and well nourished General appearance: cooperative HENMT Common normals: normocephalic, hearing grossly normal bilaterally and moist oral mucous membranes Head and scalp: normocephalic Eye Common normals: PERRL Pupil: PERRL Neck & C-Spine Common normals: full ROM General: normal visual inspection Chest Common normals: inspection of chest normal Respiratory Common normals: normal respiratory effort, no retractions and no use of accessory muscles Back & Pelvis Lumbar spine/lower back: normal to inspection, ROM limited, pain with ROM, lumbar spinal tenderness, paraspinal muscle tenderness and straight leg raise negative bilaterally Other: surgical incisions well healed strength 4/5 in BLE, continues to report heaviness weakness in BLE with standing and ambulating Extremity Common normals: normal to inspection and full ROM Neuro Common normals: oriented x3, CN's II-XII intact bilaterally, moves all extremities, no focal motor deficits, no sensory deficits noted and deep tendon reflexes 2+ bilaterally Sensorium/orientation: alert Motor exam: strength 5/5 throughout and no movement abnormalities noted Psych Common normals: mental status grossly normal, thought process normal, cooperative, affect normal, speech normal and activity/motor behavior normal Speech: normal speech Thought process: normal thought process Results Additional Findings Additional findings: If on a controlled substance or opioids, I have checked an [place]AR[place] report on this patient and there are no aberrancies noted in the prescribing history.??If on a controlled substance or opioid a drug screen was completed and reviewed within the last year, and if there has not been a drug screen completed we ordered one today to monitor higher risk, state monitored pain medication use. As part of providing excellent, safe, comprehensive care, the following was completed at our patient's visit: 1. A medication reconciliation and review to ensure accurate knowledge of current/active medications, including asking our patients to inform us about any [id number] medications or herbal remedies/nutritional supplements/alternative remedies. 2. A review to specifically ensure our patients have had annual screening for screening for depression, screening for tobacco use, and screening for unhealthy alcohol use. For concerning screenings had a discussion with the patient, provided patient education, and recommended follow-up with primary care provider when appropriate. If patient noted with a risk of falling, they received edu cation on strength, gait, and balance training to prevent future risk of falling. Assessment and Plan Assessment and Plan (1) Lumbar stenosis with neurogenic claudication: (2) Chronic prescription opiate use: Assessment and Plan: patient no longer needing percocet 7.5mg TID PRN, has found benefit to norco 7.5mg TID PRN. continue to wean as tolerated with assist of spinal cord stimulator (3) Chronic low back pain: Plan aquatherapy reordered start baclofen 5-10mg BID PRN pain/spasms f/u with [employer] as needed for reprogramming f/u 2 months, sooner if needed
== END 2023-11-10 08:46 | disposition home or self-care (01) ==
LOC: PM 11-29 12:17
PROVIDERS: PCP Internal Medicine; Visit Provider Nurse Practitioner
DX: M48.062 Spinal stenosis, lumbar region with neurogenic claudication (principal); Z79.891 Long term (current) use of opiate analgesic; M54.50 Low back pain, unspecified
CPT/HCPCS: G0463

== ENCOUNTER 2024-01-20 08:59 | Outpatient (OUT) | payer MEDICARE, OTHER, SELFPAY ==
--- OUTSIDE RECORDS SUMMARY | 2024-01-20 09:17 | XMS_ITS | CCD ---
Author Organization [facility] Care Team Providers Care [employer] Counselors Name Role Phone PHYSICIAN, DEFAULT Admitting Unavailable PHYSICIAN, DEFAULT Attending Unavailable LEO GARCIAS Primary Care Unavailable PHYSICIAN, DEFAULT Admitting Unavailable PHYSICIAN, DEFAULT Attending Unavailable LEO GARCIAS Primary Care Unavailable PHYSICIAN, DEFAULT Admitting Unavailable PHYSICIAN, DEFAULT Attending Unavailable LEO GARCIAS Primary Care Unavailable LEO GARCIAS Primary Care Physician [phone] Erika Bender Unavailable DIETER, DR VAZQUEZ Primary [...] Wilfredo MONTIEL, Mary Ann Chacko Attending Unavailable Gialina MONTIEL, Mary Ann Chacko Attending Unavailable Wilfredo MONTIEL, Mary Ann Chacko Attending Unavailable Wilfredo MONTIEL, Mary Ann Chacko Attending Unavailable CLAUDETTE RICHARDSON Attending Unavailable CLAUDETTE RICHARDSON Attending Unavailable ILENE FLORES Attending Unavailable RUI TOLEDO Attending Unavailable RUI TOLEDO Attending Unavailable Allergies Allergy Classification Reported Allergen(s) Allergy Type Date of Onset Reaction(s) Facility (1 source) 84483,00; Translations: [49650,00] Propensity to adverse reactions (disorder) [facility] Repository (2 sources) patient allergy list reviewed by nurse or physicia Propensity to adverse reactions Comment:[employer] Other (1 source) No Known Medication Allergies; Translations: [No Known Medication Allergies] Propensity to adverse reactions (disorder) [facility] Medications Current Medications Medication Drug [...] # 90 tab(s), Refills(s) 3, Pharmacy: [facility]/pharmacy #[id number], 164, cm, 08/24/22 10:54:00 [...] # 90 tab(s), Refills(s) 3, Pharmacy: [facility]/pharmacy #[id number], 164, cm, 08/24/22 10:54:00 EDT, Height/Length Dosing, 138, kg, 08/24/22 10:54:00 EDT, Weight Dosing Start Date: 06/25/23 Status: Ordered Start: 06-26-2022 take 1 tablet by domingo every twenty-four hours oxyBUTYnin Chloride ER 15 MG 1 tablet Orally Once a day Jun, Active Start: 08-04-2021 take 1 tablet by mouth once da bettye oxybutynin 15 mg ER Tab 15 mg = 1 tab(s), Oral, Daily, # 30 tab(s), Refills(s) 11, Pharmacy: [facility]/pharmacy #[id number], 164, cm, 08/04/21 8:56:00 EDT, Height/Length Dosing, 139, kg, 08/04/21 8:56:00 EDT, Weight Dosing Start Date: 08/04/21 Status: Ordered tamsulosin hydrochloride 0.4 mg oral capsule (13 sources) alpha-Adrenergic Remy Start: 07-12-2023 take 1 capsule by mouth twice daily tamsulosin 0.4 mg Cap 0.4 mg = 1 cap(s), Oral, BID, # 180 cap(s), Refills(s) 3, Pharmacy: [facility]/pharmacy #[id number], 164, cm, 08/24/22 10:54:00 EDT, Height/Length Dosing, 138, kg, 08/24/22 10:54:00 EDT, Weight Dosing Start Date: 07/12/23 Status: Ordered Start: 06-26-2022 take 1 capsule by [facility] twice daily tamsulosin 0.4 mg Cap 0.4 mg = 1 cap(s), Oral, BID, # 180 cap(s), Refills(s) 3, Pharmacy: [facility]/pharmacy #[id number], 164, cm, 02/23/22 11:10:00 EDT, Height/Length Dosing, 139, kg, 02/23/22 11:10:00 EDT, Weight Dosing Start Date: 06/26/22 Status: Ordered Start: 02-23-2022 End: 06-23-2022 take 1 capsule by mouth twice daily tamsulosin 0.4 mg Cap 0.4 mg = 1 cap(s), Oral, BID, X 30 day(s), # 60 cap(s), Refills(s) 3, Pharmacy: [facility]/pharmacy #[id number], 164, cm, 02/23/22 11:10:00 EDT, Height/Length Dosing, 139, kg, 02/23/22 11:10:00 EDT, Weight Dosing Start Date: 02/23/22 Stop Date: 06/23/22 Status: Ordered Start: 11-22-2020 End: 11-17-2021 take 1 capsule by mouth twice daily Flomax 0.4 mg Cap 0.4 mg = 1 cap(s), Oral, BID, X 90 day(s), # 180 cap(s), Refills(s) 3, Pharmacy: [facility]/pharmacy #[id number], 164, cm, 07/26/20 9:40:00 EDT, Height/Length Dosing, 138.5, kg, 07/26/20 9:40:00 EDT, Weight Dosing Start Date: 11/22/20 Stop Date: 11/17/21 Status: Ordered take 1 capsule by [facility] every twenty-four hours Flomax 0.4 MG [...] Coronary arteriosclerosis; Translations: [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] Onset: 01-27-2023 [...] Chronic Other aftercare (3 sources) Other long winder tender (current) drug therapy; Translations: [OTH INSULATION ESTIMATOR CURRENT DRUG THERAPY] Onset: 08-25-2021 Episodic Other aftercare (2 sources) Long-term current use of drug therapy; Translations: [Other long winder tender (current) drug therapy] Episodic Other and ill-defined [...] Resolved: 01-08-2021 Episodic Other aftercare (1 source) 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 Take fjmy-tlc-[id number] and prescription medicines only as told by [...] the medicine (more content not included)... Normal [facility] Urology Office/Clinic Noteon 08-31-2023 Urology Office/Clinic [...] with voice recognition artificial intelligence software, specifically Ubersnap, tic and or Lagiar. Substitutions may have occurred due to the [...] Urnls Dip Stick Auto w/o Microscopy POC 39390 3. 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 Normal [facility] Comment on above: Result Comment: Elec tronically Signed By: ISAAC Huston APRN, Orquidea Blue\.edi\Date and Time Signed: 08/31/23 09:08 EDT RAD - MISCon 08-17-2023 RAD - MISC [id number] IFF Normal [facility] Office Visiton 01-27-2023 Follow-up visit [id number] Ralph Almanzar ald H 1945 M Date Provider Department Center 01/27/2023 [id number], EHAB CARD [facility] No family history on file Level of Service:23308 AL OFFICE/OUTPATIENT ESTABLISHED MOD MDM 30-39 MIN Normal [facility] 36on 07-07-2022 36 Notes: Rx refused. N ot seen since December 2020. Normal [facility] BNPon 02-17-2022 Natriuretic peptide B (Bld) [Mass/Vol] 330.0 pg/mL Normal <=1,800.0 [facility] Comment on above: Performed By: #### B OUTCOMES MANAGER, TSH, BMP #### [facility] [address] [place] [address] Dr. Temo Mckeon CBC AUTO DIFFon 02-17-2022 BASO # 0.1 103/ul Normal 0.0-0.1 [facility] Comment on above: Performed By: #### C BC #### [facility] [address] [place] [address] Dr. Temo Mckeon Basophils/100 WBC (Bld) 0.4 % Normal 0.2-2.0 [facility] Comment on above: Performed By: #### C BC #### [facility] [address] [place] [address] Dr. Temo Mckeon EO # 0.3 103/ul Normal 0.0-0.7 [facility] Comment on above: Performed By: #### C BC #### [facility] [address] [place] [address] Dr. Temo Mckeon Eosinophils/100 WBC (Bld) 2.8 % Normal 0.9-7.0 [facility] Comment on above: Performed By: #### C BC #### [facility] [address] [place] [address] Dr. Temo Mckeon Erythrocyte distribution width (RBC) [Ratio] 13.5 % Normal 11.0-15.0 [facility] Comment on above: Performed By: #### C BC #### [facility] [address] [place] [address] Dr. Temo Mckeon Hematocrit (Bld) [Volume fraction] 38.5 % Critically low 42.0-54.0 [facility] Comment on above: Performed By: #### C BC #### [facility] [address] [place] [address] Dr. Temo Mckeon Hemoglobin (Bld) [Mass/Vol] 12.5 g/dL Critically low 14.0-18.0 [facility] Comment on above: Performed By: #### C BC #### [facility] [address] [place] [address] Dr. Temo Mckeon IG # 0.11 10e3/ul Critically high 0.00-0.03 [facility] Comment on above: Performed By: #### C BC #### [facility] [address] [place] [address] Dr. Temo Mckeon IG % 0.9 % Critically high 0.0-0.5 [facility] Comment on above: Performed By: #### C BC #### [facility] [address] [place] [address] Dr. Temo Mckeon LYMPH # 2.1 103/ul Normal 1.2-3.8 [facility] Comment on above: Performed By: #### C BC #### [facility] [address] [place] [address] Dr. Temo Mckeon Lymphocytes/100 WBC (Bld) 17.5 % Critically low 20.5-60.0 [facility] Comment on above: Performed By: #### C BC #### [facility] [address] [place] [address] Dr. Temo Mckeon MANUAL DIFF REQ NO Normal [facility] Comment on above: Performed By: #### C BC #### [facility] [address] [place] [address] Dr. Temo Mckeon MCH (RBC) [Entitic mass] 30.6 pg Normal 25.9-34.0 [facility] Comment on above: Performed By: #### C BC #### [facility] [address] [place] [address] Dr. Temo Mckeon MCHC (RBC) [Mass/Vol] 32.5 g/dL Normal 29.9-35.2 [facility] Comment on above: Performed By: #### C BC #### [facility] [address] [place] [address] Dr. Temo Mckeon MCV (RBC) [Entitic vol] 94.1 fL Critically high 80.0-94.0 [facility] Comment on above: Performed By: #### C BC #### [facility] [address] [place] [address] Dr. Temo Mckeon MONO # 0.9 103/ul Critically high 0.3-0.8 [facility] Comment on above: Performed By: #### C BC #### [facility] [address] [place] [address] Dr. Temo Mckeon Monocytes/100 WBC (Bld) 7.9 % Normal 1.7-12.0 [facility] Comment on above: Performed By: #### C BC #### [facility] [address] [place] [address] Dr. Temo Mckeon NEUT # 8.4 103/ul Critically high 1.4-6.5 [facility] Comment on above: Performed By: #### C BC #### [facility] [address] [place] [address] Dr. Temo Mckeon Neutrophils/100 WBC (Bld) 70.5 % Normal 43.0-75.0 [facility] Comment on above: Performed By: #### C BC #### [facility] [address] [place] [address] Dr. Temo Mckeon Platelet mean volume (Bld) [Entitic vol] 10.5 fL Normal 9.5-13.5 [facility] Comment on above: Performed By: #### C BC #### [facility] [address] [place] [address] Dr. Temo Mckeon PLT 172 103/ul Normal 150-450 [facility] Comment on above: Performed By: #### C BC #### [facility] [address] [place] [address] Dr. Temo Mckeon RBC 4.09 106/ul Critically low 4.70-6.10 [facility] Comment on above: Performed By: #### C BC #### [facility] [address] [place] [address] Dr. Temo Mckeon WBC 11.9 103/ul Critically high 4.0-11.0 [facility] Comment on above: Performed By: #### C BC #### [facility] [address] [place] [address] Dr. Temo Mckeon PROF CHEM 8 (BAS METB)on Anion gap [Moles/Vol] 14.2 mmol/L Normal [facility] Comment on above: Performed By: #### B OUTCOMES MANAGER, TSH, BMP #### [facility] [address] [place] [address] Dr. Temo Mckeon Calcium [Mass/Vol] 9.1 mg/dL Normal 8.5-10.1 [facility] Comment on above: Performed By: #### B OUTCOMES MANAGER, TSH, BMP #### [facility] [address] [place] [address] Dr. Temo Mckeon Chloride [Moles/Vol] 105 mmol/L Normal 98-107 [facility] Comment on above: Performed By: #### B OUTCOMES MANAGER, TSH, BMP #### [facility] [address] [place] [address] Dr. Temo Mckeon CO2 [Moles/Vol] 25.3 mmol/L Normal 21.0-32.0 [facility] Comment on above: Performed By: #### B OUTCOMES MANAGER, TSH, BMP #### [facility] [address] [place] [address] Dr. Temo Mckeon Creatinine [Mass/Vol] 1.72 mg/dL Critically high 0.70-1.30 [facility] Comment on above: Performed By: #### B OUTCOMES MANAGER, TSH, BMP #### [facility] [address] [place] [address] Dr. Temo Mckeon EGFR-AF SENEGALESE 47 mL/min/1.73m2 Critically low >=60 [facility] Comment on above: Performed By: #### B OUTCOMES MANAGER, TSH, BMP #### [facility] [address] [place] [address] Dr. Temo Mckeon EGFR-NON AF SENEGALESE 39 mL/min/1.73m2 Critically low >=60 [facility] Comment on above: Performed By: #### B OUTCOMES MANAGER, TSH, BMP #### [facility] [address] [place] [address] Dr. Temo Mckeon Glucose [Mass/Vol] 134 mg/dL Critically high 74-106 [facility] Comment on above: Performed By: #### B OUTCOMES MANAGER, TSH, BMP #### [facility] [address] [place] [address] Dr. Temo Mckeon Potassium [Moles/Vol] 4.5 mmol/L Normal 3.5-5.1 [facility] Comment on above: Performed By: #### B OUTCOMES MANAGER, TSH, BMP #### [facility] [address] [place] [address] Dr. Temo Mckeon Sodium [Moles/Vol] 140 mmol/L Normal 136-145 [facility] Comment on above: Performed By: #### B OUTCOMES MANAGER, TSH, BMP #### [facility] [address] [place] [address] Dr. Temo Mckeon Urea nitrogen [Mass/Vol] 36.0 mg/dL Critically high 7.0-18.0 [facility] Comment on above: Performed By: #### B OUTCOMES MANAGER, TSH, BMP #### [facility] [address] [place] [address] Dr. Temo Mckeon Urea nitrogen/Creatinine [Mass ratio] 20.9 mg/mg Normal [facility] Comment on above: Performed By: #### B OUTCOMES MANAGER, TSH, BMP #### [facility] [address] [address] [address] Temo Mckeon TSHon 02-17-2022 TSH 1.708 uIU/mL Normal 0.358-3.740 [facility] Comment on above: Performed By: #### B OUTCOMES MANAGER, TSH, BMP #### [facility] [address] [address] [address] Temo Mckeon XR KUB 1 VIEWon [...] RADU CHRISTENSEN Date: 2022-02-17 11:43 Normal [facility] METHYLMALONIC ACID (MMA)on 0 11-01-2021 Methylmalonic Acid, Serum 205 nmol/L Normal 0-378 [facility] Comment on above: Performed By: #### C BC #### [facility] [address] [address] [address] Temo Mckeon FOLATE ([facility])on 2 Folate >20.0 Normal >3.0 [facility] Comment on above: Result Comment: A se rum folate concentration of less than 3.1 ng/mL is considered to represent clinical deficiency. Performed By: #### B MP, ALT, LIPID #### [facility] [address] [address] [address] Temo Mckeon CBC AUTO DIFFon 10-29-2021 BASO # 0.1 103/ul Normal 0.0-0.1 [facility] Comment on above: Performed By: #### C BC #### [facility] [address] [address] [address] Temo Mckeon Basophils/100 WBC (Bld) 0.5 % Normal 0.2-2.0 [facility] Comment on above: Performed By: #### C BC #### [facility] [address] [address] [address] Temo Mckeon EO # 0.3 103/ul Normal 0.0-0.7 [facility] Comment on above: Performed By: #### C BC #### [facility] [address] [address] [address] Temo Mckeon Eosinophils/100 WBC (Bld) 3.3 % Normal 0.9-7.0 [facility] Comment on above: Performed By: #### C BC #### [facility] [address] [address] [address] Temo Mckeon Erythrocyte distribution width (RBC) [Ratio] 13.3 % Normal 11.0-15.0 [facility] Comment on above: Performed By: #### C BC #### [facility] [address] [place] [address] Dr. Temo Mckeon Hematocrit (Bld) [Volume fraction] 40.4 % Critically low 42.0-54.0 [facility] Comment on above: Performed By: #### C BC #### [facility] [address] [place] [address] Dr. Temo Mckeon Hemoglobin (Bld) [Mass/Vol] 13.4 g/dL Critically low 14.0-18.0 [facility] Comment on above: Performed By: #### C BC #### [facility] [address] [address] [address] Temo Mckeon IG # 0.06 10e3/ul Critically high 0.00-0.03 [facility] Comment on above: Performed By: #### C BC #### [facility] [address] [place] [address] Dr. Temo Mckeon IG % 0.6 % Critically high 0.0-0.[address] [facility] Comment on above: Performed By: #### C BC #### [facility] [address] [place] [address] Dr. Temo Mckeon LYMPH # 2.2 103/ul Normal 1.2-3.8 [facility] Comment on above: Performed By: #### C BC #### [facility] [address] [place] [address] Dr. Temo Mckeon Lymphocytes/100 WBC (Bld) 22.6 % Normal 20.5-60.0 [facility] Comment on above: Performed By: #### C BC #### [facility] [address] [place] [address] Dr. Temo Mckeon MANUAL DIFF REQ NO Normal [facility] Comment on above: Performed By: #### C BC #### [facility] [address] [place] [address] Dr. Temo Mckeon MCH (RBC) [Entitic mass] 30.8 pg Normal 25.9-34.0 [facility] Comment on above: Performed By: #### C BC #### [facility] [address] [place] [address] Dr. Temo Mckeon MCHC (RBC) [Mass/Vol] 33.2 g/dL Normal 29.9-35.2 [facility] Comment on above: Performed By: #### C BC #### [facility] [address] [place] [address] Dr. Temo Mckeon MCV (RBC) [Entitic vol] 92.9 fL Normal 80.0-94.0 [facility] Comment on above: Performed By: #### C BC #### [facility] [address] [place] [address] Dr. Temo Mckeon MONO # 0.7 103/ul Normal 0.3-0.8 [facility] Comment on above: Performed By: #### C BC #### [facility] [address] [place] [address] Dr. Temo Mckeon Monocytes/100 WBC (Bld) 7.6 % Normal 1.7-12.0 [facility] Comment on above: Performed By: #### C BC #### [facility] [address] [place] [address] Dr. Temo Mckeon NEUT # 6.2 103/ul Normal 1.4-6.5 [facility] Comment on above: Performed By: #### C BC #### [facility] [address] [place] [address] Dr. Temo Mckeon Neutrophils/100 WBC (Bld) 65.4 % Normal 43.0-75.0 [facility] Comment on above: Performed By: #### C BC #### [facility] [address] [place] [address] Dr. Temo Mckeon Platelet mean volume (Bld) [Entitic vol] 10.5 fL Normal 9.5-13.5 [facility] Comment on above: Performed By: #### C BC #### [facility] [address] [place] [address] Dr. Temo Mckeon PLT 169 103/ul Normal 150-450 [facility] Comment on above: Performed By: #### C BC #### [facility] [address] [place] [address] Dr. Temo Mckeon RBC 4.35 106/ul Critically low 4.70-6.[address] [facility] Comment on above: Performed By: #### C BC #### [facility] [address] [place] [address] Dr. Temo Mckeon WBC 9.5 103/ul Normal 4.0-11.0 [facility] Comment on above: Performed By: #### C BC #### [facility] [address] [place] [address] Dr. Temo Mckeon FERRITINon 10-29-2021 Ferritin [Mass/Vol] 423.0 ng/mL Critically high 26.0-388.0 [facility] Comment on above: Performed By: #### C BC #### [facility] [address] [place] [address] Dr. Temo Mckeon IRON AND TIBCon 10-29-2021 % SATURATION 25.6 % Normal [facility] Comment on above: Performed By: #### C BC #### [facility] [address] [address] [address] Temo Mckeon Iron [Mass/Vol] 79.0 ug/dL Normal 65.0-175.0 [facility] Comment on above: Performed By: #### C BC #### [facility] [address] [address] [address] Temo Mckeon TIBC DIRECT 308.0 ug/dL Normal 250.0-450.0 [facility] Comment on above: Performed By: #### C BC #### [facility] [address] [address] [address] Temo Mckeon LIPID PROFILEon 10-29-2021 CHOL-HDL RATIO NORM SEE BELOW Normal [facility] Comment on above: Result Comment: 3.3 - 4.4 LOW RISK 4.4 - 7.1 AVERAGE RISK 7.1 - 11.0 MODERATE RISK >11.0 HIGH RISK Performed By: #### B MP, ALT, LIPID #### [facility] [address] [address] [address] Temo Mckeon Cholesterol [Mass/Vol] 93 mg/dL Normal <=200 [facility] Comment on above: Performed By: #### B MP, ALT, LIPID #### [facility] [address] [address] [address] Temo Mckeon Cholesterol in HDL [Mass/Vol] 40 mg/dL Normal 40-60 [facility] Comment on above: Performed By: #### B MP, ALT, LIPID #### [facility] [address] [place], [place] [address] Dr. Temo Mckeon Cholesterol in LDL [Mass/Vol] 35.4 mg/dL Normal [facility] Comment on above: Performed By: #### B MP, ALT, LIPID #### [facility] [address] [address] [address] Temo Mckeon Cholesterol.total/C holesterol in HDL [Mass ratio] 2.3 {ratio} Normal [facility] Comment on above: Performed By: #### B MP, ALT, LIPID #### [facility] [address] [address] [address] Temo Mckeon HDL NORMAL > or = 60 mg/dl - LO W CARDIOVASCULAR RISK <40 mg/dl - HIGH CARDIOVASCULAR RISK Normal [facility] Comment on above: Performed By: #### B MP, ALT, LIPID #### [facility] [address] [address] [address] Temo Mckeon LDL CALC NORMAL SEE BELOW Normal [facility] Comment on above: Result Comment: <100 mg/dl OPTIMAL 100 - 129 mg/dl NEAR OR ABOVE OPTIMAL 130 - 159 mg/dl BORDERLINE HIGH 160 - 189 mg/dl HIGH >190 mg/dl VERY HIGH Performed By: #### B MP, ALT, LIPID #### [facility] [address] [address] [address] Temo Mckeon Triglyceride [Mass/Vol] 88 mg/dL Normal <=150 [facility] Comment on above: Performed By: #### B MP, ALT, LIPID #### [facility] [address] [address] [address] Temo Mckeon VLDL CALC 17.6 mg/dL Normal [facility] Comment on above: Performed By: #### B MP, ALT, LIPID #### [facility] [address] [address] [address] Temo Mckeon PROF CHEM 8 (BAS METB)on Anion gap [Moles/Vol] 14.6 mmol/L Normal [facility] Comment on above: Performed By: #### B MP, ALT, LIPID #### [facility] [address] [address] [address] Temo Mckeon Calcium [Mass/Vol] 8.8 mg/dL Normal 8.5-10.1 [facility] Comment on above: Performed By: #### B MP, ALT, LIPID #### [facility] [address] [address] [address] Temo Mckeon Chloride [Moles/Vol] 106 mmol/L Normal 98-107 [facility] Comment on above: Performed By: #### B MP, ALT, LIPID #### [facility] [address] [address] Dr. Temo Mckeon CO2 [Moles/Vol] 23.8 mmol/L Normal 21.0-32.0 [facility] Comment on above: Performed By: #### B MP, ALT, LIPID #### [facility] [address] [address] [address] Temo Mckeon Creatinine [Mass/Vol] 1.57 mg/dL Critically high 0.70-1.30 [facility] Comment on above: Performed By: #### B MP, ALT, LIPID #### [facility] [address] [place] [address] Dr. Temo Mckeon EGFR-AF SENEGALESE 52 mL/min/1.73m2 Critically low >=60 [facility] Comment on above: Performed By: #### B MP, ALT, LIPID #### [facility] [address] [place] [address] Dr. Temo Mckeno EGFR-NON AF SENEGALESE 43 mL/min/1.73m2 Critically low >=60 [facility] Comment on above: Performed By: #### B MP, ALT, LIPID #### [facility] [address] [place] [address] Dr. Temo Mckeon Glucose [Mass/Vol] 148 mg/dL Critically high 74-106 [facility] Comment on above: Performed By: #### B MP, ALT, LIPID #### [facility] [address] [place] [address] Dr. Temo Mckeon Potassium [Moles/Vol] 4.4 mmol/L Normal 3.5-5.1 [facility] Comment on above: Performed By: #### B MP, ALT, LIPID #### [facility] [address] [place] [address] Dr. Temo Mckeon Sodium [Moles/Vol] 140 mmol/L Normal 136-145 [facility] Comment on above: Performed By: #### B MP, ALT, LIPID #### [facility] [address] [place] [address] Dr. Temo Mckeon Urea nitrogen [Mass/Vol] 31.0 mg/dL Critically high 7.0-18.0 [facility] Comment on above: Performed By: #### B MP, ALT, LIPID #### [facility] [address] [place] [address] Dr. Temo Mckeon Urea nitrogen/Creatinine [Mass ratio] 19.7 mg/mg Normal [facility] Comment on above: Performed By: #### B MP, ALT, LIPID #### [facility] [address] [place] [address] Dr. Temo Mckeon SGPTon 10-29-2021 ALT [Catalytic activity/Vol] 39 U/L Normal 16-63 [facility] Comment on above: Performed By: #### B MP, ALT, LIPID #### [facility] [address] [place] [address] Dr. Temo Mckeon VITAMIN B12on 10-29-2021 Cobalamin (Vitamin B12) [Mass/Vol] 675.0 pg/mL Normal 193.0-986.0 [facility] Comment on above: Performed By: #### C BC #### [facility] [address] [place] [address] Dr. Temo Mckeon XR KUB 1 VIEWon [...] MARTA HALE Date: 2021-08-29 19:34 Normal [facility] CBC AUTO DIFFon 08-21-2021 BASO # 0.0 103/ul Normal 0.0-0.1 [facility] Comment on above: Performed By: #### C BC #### [facility] [address] [place] [address] Dr. Temo Mckeon Basophils/100 WBC (Bld) 0.3 % Normal 0.2-2.0 [facility] Comment on above: Performed By: #### C BC #### [facility] [address] [place] [address] Dr. Temo Mckeon EO # 0.3 103/ul Normal 0.0-0.7 [facility] Comment on above: Performed By: #### C BC #### [facility] [address] [place] [address] Dr. Temo Mckeon Eosinophils/100 WBC (Bld) 3.2 % Normal 0.9-7.0 [facility] Comment on above: Performed By: #### C BC #### [facility] [address] [place] [address] Dr. Temo Mckeon Erythrocyte distribution width (RBC) [Ratio] 13.5 % Normal 11.0-15.0 [facility] Comment on above: Performed By: #### C BC #### [facility] [address] [place] [address] Dr. Temo Mckeon Hematocrit (Bld) [Volume fraction] 38.8 % Critically low 42.0-54.0 [facility] Comment on above: Performed By: #### C BC #### [facility] [address] [place] [address] Dr. Temo Mckeon Hemoglobin (Bld) [Mass/Vol] 12.8 g/dL Critically low 14.0-18.0 [facility] Comment on above: Performed By: #### C BC #### [facility] [address] [place] [address] Dr. Temo Mckeon IG # 0.05 10e3/ul Critically high 0.00-0.03 [facility] Comment on above: Performed By: #### C BC #### [facility] [address] [place] [address] Dr. Temo Mckeon IG % 0.5 % Normal 0.0-0.5 [facility] Comment on above: Performed By: #### C BC #### [facility] [address] [place] [address] Dr. Temo Mckeon LYMPH # 1.8 103/ul Normal 1.2-3.8 [facility] Comment on above: Performed By: #### C BC #### [facility] [address] [place] [address] Dr. Temo Mckeon Lymphocytes/100 WBC (Bld) 19.6 % Critically low 20.5-60.0 [facility] Comment on above: Performed By: #### C BC #### [facility] [address] [place] [address] Dr. Temo Mckeon MANUAL DIFF REQ NO Normal [facility] Comment on above: Performed By: #### C BC #### [facility] [address] [place] [address] Dr. Temo Mckeon MCH (RBC) [Entitic mass] 31.1 pg Normal 25.9-34.0 [facility] Comment on above: Performed By: #### C BC #### [facility] [address] [place] [address] Dr. Temo Mckeon MCHC (RBC) [Mass/Vol] 33.0 g/dL Normal 29.9-35.2 [facility] Comment on above: Performed By: #### C BC #### [facility] [address] [place] [address] Dr. Temo Mckeon MCV (RBC) [Entitic vol] 94.4 fL Critically high 80.0-94.0 [facility] Comment on above: Performed By: #### C BC #### [facility] [address] [place] [address] Dr. Temo Mckeon MONO # 0.7 103/ul Normal 0.3-0.8 [facility] Comment on above: Performed By: #### C BC #### [facility] [address] [place] [address] Dr. Temo Mckeon Monocytes/100 WBC (Bld) 7.5 % Normal 1.7-12.0 [facility] Comment on above: Performed By: #### C BC #### [facility] [address] [place] [address] Dr. Temo Mckeon NEUT # 6.4 103/ul Normal 1.4-6.5 [facility] Comment on above: Performed By: #### C BC #### [facility] [address] [address] [address] Temo Mckeon Neutrophils/100 WBC (Bld) 68.9 % Normal 43.0-75.0 [facility] Comment on above: Performed By: #### C BC #### [facility] [address] [address] [address] Temo Mckeon Platelet mean volume (Bld) [Entitic vol] 10.2 fL Normal 9.5-13.5 [facility] Comment on above: Performed By: #### C BC #### [facility] [address] [address] [address] Temo Mckeon PLT 160 103/ul Normal 150-450 [facility] Comment on above: Performed By: #### C BC #### [facility] [address] [place] [address] Dr. Temo Mckeon RBC 4.11 106/ul Critically low 4.70-6.10 [facility] Comment on above: Performed By: #### C BC #### [facility] [address] [address] [address] Temo Mckeon WBC 9.3 103/ul Normal 4.0-11.0 [facility] Comment on above: Performed By: #### C BC #### [facility] [address] [place] [address] Dr. Temo Mckeon Covid-19 PCR (CVDTB)on 08-08 SARS-CoV-2 (COVID-19) RNA PRADEEP+probe Ql (Unsp spec) Not detected Normal NOT DETECTED [facility] Comment on above: Result Comment: This test is not yet approved or cleared by the [place] FDA. When there are no FDA-approved or cleared tests available, and other criteria are met, FDA can make tests available under an emergency access mechanism called an Emergency Use Authorization (EUA). The EUA for this test is supported by the [employer] Manager of Health and Human Service's (HHS's) declaration [...] SARS-CoV-2. Performed By: #### C BC #### [facility] [address] [place] [address] Dr. Temo Mckeon PROF CHEM 8 (BAS METB)on Anion gap [Moles/Vol] 12.4 mmol/L Normal [facility] Comment on above: Performed By: #### C BC #### [facility] [address] [place] [address] Dr. Temo Mckeon Calcium [Mass/Vol] 8.6 mg/dL Normal 8.5-10.1 [facility] Comment on above: Performed By: #### C BC #### [facility] [address] [place] [address] Dr. Temo Mckeon Chloride [Moles/Vol] 105 mmol/L Normal 98-107 [facility] Comment on above: Performed By: #### C BC #### [facility] [address] [place] [address] Dr. Temo Mckeon CO2 [Moles/Vol] 27.0 mmol/L Normal 22.0-30.0 [facility] Comment on above: Performed By: #### C BC #### [facility] [address] [place] [address] Dr. Temo Mckeon Creatinine [Mass/Vol] 1.57 mg/dL Critically high 0.66-1.25 [facility] Comment on above: Performed By: #### C BC #### [facility] [address] [place] [address] Dr. Temo Mckeon EGFR-AF SENEGALESE 52 mL/min/1.73m2 Critically low >=60 [facility] Comment on above: Performed By: #### C BC #### [facility] [address] [address] [address] Temo Mckeon EGFR-NON AF SENEGALESE 43 mL/min/1.73m2 Critically low >=60 [facility] Comment on above: Performed By: #### C BC #### [facility] [address] [address] [address] Temo Mckeon Glucose [Mass/Vol] 145 mg/dL Critically high 74-106 [facility] Comment on above: Performed By: #### C BC #### [facility] [address] [address] [address] Temo Mckeon Potassium [Moles/Vol] 4.4 mmol/L Normal 3.4-5.0 [facility] Comment on above: Performed By: #### C BC #### [facility] [address] [address] [address] Temo Mckeon Sodium [Moles/Vol] 140 mmol/L Normal 137-145 [facility] Comment on above: Performed By: #### C BC #### [facility] [address] [address] [address] Temo Mckeon Urea nitrogen [Mass/Vol] 32.0 mg/dL Critically high 7.0-18.0 [facility] Comment on above: Performed By: #### C BC #### [facility] [address] [address] [address] Temo Mckeon Urea nitrogen/Creatinine [Mass ratio] 20.4 mg/mg Normal [facility] Comment on above: Performed By: #### C BC #### [facility] [address] [address] [address] Temo Mckeon PROTIMEon 08-21-2021 INR Coag (PPP) [Relative time] 1.04 {INR} Normal [facility] Comment on above: Performed By: #### C BC #### [facility] [address] [address] [address] Temo Mckeon INR GUIDELINES SEE BELOW Normal [facility] Comment on above: Result Comment: APPLE RED INR: 2.0 - 3.0 CONDITIONS NOT LISTED BELOW 2.5 - 3.5 FOR PROSTHETIC HEART VALVE REPLACEMENT 2.5 - 3.5 RECURRENT THROMBOSIS Performed By: #### C BC #### [facility] [address] [place], [place] [address] Dr. Temo Mckeon PT Coag (PPP) [Time] 11.2 s Normal 9.0-11.6 [facility] Comment on above: Performed By: #### C BC #### [facility] [address] [place], [place] [address] Dr. Temo Mckeon PTTon 08-21-2021 aPTT Coag (Bld) [Time] 25.2 s Normal 22.3-36.2 [facility] Comment on above: Performed By: #### C BC #### [facility] [address] [address] [address] Temo Mckeon XR KUB 1 VIEWon [...] TANISHA MATOS Date: 2021-07-29 09:21 Normal [facility] Covid-19 PCR (CVDTB)on 04-10 SARS-CoV-2 (COVID-19) RNA PRADEEP+probe Ql (Unsp spec) Not detected Normal NOT DETECTED [facility] Comment on above: Result Comment: This test is not yet approved or cleared by the [place] FDA. When there are no FDA-approved or cleared tests available, and other criteria are met, FDA can make tests available under an emergency access mechanism called an Emergency Use Authorization (EUA). The EUA for this test is supported by the [place] of Health and Human Service's (HHS's) declaration [...] consistent with SARS-CoV-2. Performed By: #### C [facility] #### [facility] [address] [address] [address] angio chest PE protocolon 03-07-2021 CT angio chest PE protocol [facility] [address] [place] [id number] Scan Report Signed Patient: Lenin Almanzar MR#: [id number] 71 : 1945 Acct:[id number] Age/Sex: 75 / M ADM Date: 03/07/21 Loc: CT Room: Type: [facility] Attending Dr: Erika Bender MD Ordering Provider: [...] Balwinder Zambrano M.D.03/07/2021 2:01 PM Dictation Location: [place] [address] Transcribed By: [facility] 03/07/21 1401 Dictated By: Balwinder Zambrano DO 03/07/21 1359 Signed By: 03/07/21 1401 Normal [facility] echo [facility] echo transthoracic [facility] [address] [place], [place] [id number] Echocardiogram Signed Patient: Lenin Almanzar MR#: [id number] 71 : 1945 Acct:[id number] Age/Sex: 75 / M ADM Date: 03/07/21 Loc: CT Room: Type: [facility] Attending Dr: Erika Bender MD Ordering Provider: Erika Bender MD Date of Service: 03/07/21 [facility] transthoracic: DYSPNEA Copies to: MD [facility] BSA: 2.3 m2 BP: 174/95 mmHg HR: [...] 144 Dictated By: Genesis Thomas DO 03/07/21 135 Signed By: 03/07/211448 [facility] ISTAT XRay CREon 03-07-2021 Creatinine [Mass/Vol] 1.5 mg/dL High 0.6-1.3 [facility] Comment on above: Result Comment: ER/E SD physician is notified/shown all ISTAT results. Critical values may be confirmed by laboratory testing if deemed necessary by ER attending doctor. Performed By: #### I SCRE #### [facility] [address] [place] [address] Point of Care testing , ISTAT GFR ( 55 [facility] Comment on above: Result Comment: GFR estimated reference range: According to KDOQI guidelines, <60 ml/min/1.73m2 is sufficient to diagnose a patient with chronic kidney disease. PERFORMED BY: [place] [address] PATHOLOGIST [employer]ER POOJA MYERS M.D. Performed By: #### I SCRE #### [facility] [address] [place] [address] Point of Care testing , ISTAT GFR (Non- Am 46 [facility] Comment on above: Performed By: #### I SCRE #### [address] Point of Care testing , Vital Signs Date Time Vital Sign Value Performing Clinician Facility 02-01-2023 09:30-0400 Body height 162.56 cm Leo Ball Other [facility] Other 02-01-2023 09:30-0400 Body mass index (BMI) [Ratio] 49.6 kg/m2 Leo Ball Other [facility] Other 02-01-2023 09:30-0400 Body weight 131.09 kg Leo Ball Other [facility] Other 02-01-2023 09:30-0400 Diastolic blood pressure 83 mm[Hg] Leo Ball Other [facility] Other 02-01-2023 09:30-0400 Respiratory rate 20 /min Leo Ball Other [facility] Other 02-01-2023 09:30-0400 SaO2% (BldA) [Mass fraction] 97 % Leo Ball Other [facility] Other 02-01-2023 09:30-0400 Systolic blood pressure 147 mm[Hg] Leo Ball Other [facility] Other 10-30-2022 09:00-0400 Body height 162.56 cm Leo Ball Other [facility] Other 10-30-2022 09:00-0400 Body mass index (BMI) [Ratio] 50.67 kg/m2 Leo Ball Other [facility] Other 10-30-2022 09:00-0400 Body weight 133.9 kg Loe Ball Other [facility] Other 10-30-2022 09:00-0400 Diastolic blood pressure 68 mm[Hg] Leo Ball Other [facility] Other 10-30-2022 09:00-0400 Respiratory rate 20 /min Leo Ball Other [facility] Other 10-30-2022 09:00-0400 SaO2% (BldA) [Mass fraction] 98 % Leo Ball Other [facility] Other 10-30-2022 09:00-0400 Systolic blood pressure 121 mm[Hg] Leo Ball Other [facility] Other 08-24-2022 10:32-0400 Blood Pressure Location Demetri ESTRELLA [facility] 08-24-2022 10:32-0400 Diastolic blood pressure 73 mm[Hg] Demetri ESTRELLA [facility] 08-24-2022 10:32-0400 Heart rate 59 /min Demetri ESTRELLA [facility] 08-24-2022 10:32-0400 Respiratory rate 16 /min Demetri ESTRELLA [facility] 08-24-2022 10:32-0400 Systolic blood pressure 125 mm[Hg] Demetri ESTRELLA [facility] 06-30-2022 09:00-0500 Body height 162.56 cm Leo Ball Other [facility] Other 06-30-2022 09:00-0500 Body mass index (BMI) [Ratio] 51.52 kg/m2 Leo Ball Other [facility] Other 06-30-2022 09:00-0500 Body weight 136.17 kg Leo Ball Other [facility] [employer] Other 06-30-2022 09:00-0500 Diastolic blood pressure 84 mm[Hg] Leo Ball Other [facility] [employer] Other 06-30-2022 09:00-0500 Respiratory rate 20 /min Leo Ball Other [facility] [employer] Other 06-30-2022 09:00-0500 Systolic blood pressure 128 mm[Hg] Leo Ball Other [facility] [employer] Other 02-23-2022 11:07-0400 Blood Pressure Location Demetri ESTRELLA [facility] 02-23-2022 11:07-0400 Diastolic blood pressure 74 mm[Hg] Demetri ESTRELLA [facility] 02-23-2022 11:07-0400 Heart rate 76 /min Demetri ESTRELLA [facility] 02-23-2022 11:07-0400 Respiratory rate 16 /min Demetri ESTRELLA [facility] 02-23-2022 11:07-0400 Systolic blood pressure 128 mm[Hg] Demetri ESTRELLA [facility] 08-04-2021 08:51-0400 Blood Pressure Location Demetri ESTRELLA [facility] 08-04-2021 08:51-0400 Diastolic blood pressure 72 mm[Hg] Demetri ESTRELLA [facility] 08-04-2021 08:51-0400 Heart rate 63 /min Demetri ESTRELLA [facility] 08-04-2021 08:51-0400 Respiratory rate 16 /min Demetri ESTRELLA [facility] 08-04-2021 08:51-0400 Systolic blood pressure 121 mm[Hg] Demetri ESTRELLA [facility] 04-01-2021 12:45-0500 Body height 162.56 cm Erika Bender Other [facility] Other 04-01-2021 12:45-0500 Body mass index (BMI) [Ratio] 51.15 kg/m2 Erika Bender Other [facility] Other 04-01-2021 12:45-0500 Body temperature 97.6 [degF] Erika Bender Other [facility] Other 04-01-2021 12:45-0500 Body weight 135.17 kg Erika Bender Other [facility] Other 04-01-2021 12:45-0500 Diastolic blood pressure 68 mm[Hg] Erika Bender Other [facility] Other 04-01-2021 12:45-0500 Respiratory rate 20 /min Erika Bender Other [facility] Other 04-01-2021 12:45-0500 SaO2% (BldA) [Mass fraction] 97 % Erika Bender Other [facility] Other 04-01-2021 12:45-0500 Systolic blood pressure 140 mm[Hg] Erika Avilaban Other [facility] Other 03-04-2021 16:15-0400 Body height 162.56 cm Erika Bender Other [facility] Other 03-04-2021 16:15-0400 Body mass index (BMI) [Ratio] 51.15 kg/m2 Erika Bender Other [facility] Other 03-04-2021 16:15-0400 Body temperature 98.3 [degF] Erika Bender Other [facility] Other 03-04-2021 16:15-0400 Body weight 135.17 kg Erika Bender Other [facility] Other 03-04-2021 16:15-0400 Diastolic blood pressure 68 mm[Hg] Erika Avilaban Other [facility] Other 03-04-2021 16:15-0400 Respiratory rate 20 /min Erika Avilaban Other [facility] Other 03-04-2021 16:15-0400 SaO2% (BldA) [Mass fraction] 97 % Erika Bender Other [facility] Other 03-04-2021 16:15-0400 Systolic blood pressure 148 mm[Hg] Erika Avilaban Other [facility] Other Encounters Encounter Date Encounter Type Care Provider Facility Start: 01-04-2024 End: 01-04-2024 ambulatory RUI TOLEDO Not Available Start: 12-29-2023 End: 12-29-2023 ambulatory RUI TOLEDO Not Available Start: 11-30-2023 End: 11-30-2023 ambulatory ILENE FLORES Not Available Start: 10-06-2023 End: 10-06-2023 ambulatory CLAUDETTE RICHARDSON Not Available Start: 09-13-2023 End: 09-14-2023 ambulatory Mary Ann Villalobos MD [facility] Start: 09-06-2023 End: 09-07-2023 ambulatory Mary Ann Villalobos MD [facility] Start: 08-31-2023 End: 09-01-2023 ambulatory Orquidea Huston [facility] Start: 08-31-2023 End: 08-31-2023 Patient encounter procedure Orquidea Huston [facility] Start: 07-05-2023 End: 07-06-2023 ambulatory Mary Ann Villalobos MD [facility] Start: 06-21-2023 End: 06-22-2023 ambulatory Mary Ann Villalobos MD [facility] Start: 05-20-2023 End: 05-20-2023 ambulatory CLAUDETTE RICHARDSON Not Available Start: 03-08-2023 End: 03-09-2023 ambulatory Mary Ann Villalobos MD [facility] Start: 02-08-2023 End: 02-09-2023 ambulatory Mary Ann Villalobos MD [facility] Start: 02-01-2023 End: 02-01-2023 ambulatory Leo Garcias Other [facility] Other Start: 02-01-2023 Office outpatient vi sit 25 minutes Leo Garcias [facility] Start: 01-27-2023 End: 01-27-2023 ambulatory EHAB [facility] Start: 01-13-2023 End: 01-13-2023 ambulatory Leo Garcias Other [facility] Other Start: 01-13-2023 Telephone encounter Leo [facility] Start: 11-09-2022 End: 11-09-2022 ambulatory Leo Garcias Other [facility] Other Start: 11-09-2022 Telephone encounter [facility] Start: 10-30-2022 End: 10-30-2022 ambulatory Leo Garcias Other [facility] Other Start: 10-30-2022 Patient encounter procedure Leo Garcias [facility] Start: 08-24-2022 End: 08-24-2022 Patient encounter procedure Demetri ESTRELLA [facility] Start: 07-08-2022 End: 07-08-2022 ambulatory Leo Garcias Other [facility] Other Start: 07-08-2022 Telephone encounter [facility] Start: 06-30-2022 End: 06-30-2022 ambulatory Leo Garcias Other [facility] Other Start: 06-30-2022 Office outpatient vi sit 25 minutes Leo Garcias [facility] Start: 02-23-2022 End: 02-23-2022 Patient encounter procedure Demetri ESTRELLA [facility] Start: 02-17-2022 End: 02-18-[address] LEO GARCIAS Facility:[facility] Start: 10-29-2021 End: 10-30-[address] LEO GARCIAS Facility:[facility] Start: 10-22-2021 Adult health examination Louis blessing Garcias Other [facility] Other Start: 08-28-2021 End: 08-28-[address] DEMETRI ESTRELLA Facility:[facility] Start: 08-25-2021 Encounter for preprocedural cardiovascular examination DR DEMETRI ESTRELLA [facility] Start: 08-25-2021 Encounter for preprocedural laboratory examination DR DEMETRI ESTRELLA [facility] Start: 08-25-[address] DEMETRI ESTRELLA [facility] ity:[facility] Start: 08-21-2021 End: 08-22-[address] DEMETRI ESTRELLA Facility:[facility] Start: 08-21-2021 End: 08-22-2021 Encounter for preprocedural cardiovascular examination DR DEMETRI ESTRELLA Facility:[facility] Start: 08-04-2021 End: 08-04-2021 Patient encounter procedure Demetri ESTRELLA [facility] Start: 07-29-2021 End: 07-30-[address] DEMETRI ESTRELLA Facility:[facility] Start: 05-05-2021 End: 05-05-[address] LEO GARCIAS Facility:[facility] Start: 04-01-2021 End: 04-01-2021 ambulatory Kamal Chaban Other [facility] Other Start: 04-01-2021 Office outpatient vi sit 15 minutes Kamal Chaban [facility] Start: 03-04-2021 Office outpatient ne w 45 minutes Kamal Chaban [facility] Start: 08-28-2019 Preoperative cardiovascular examination Leo Garcias Other [facility] Other Start: 07-06-2018 End: 07-07-2018 Patient encounter procedure DEFAULT PHYSICIAN Facility:[facility] Start: 07-04-2018 End: 07-05-2018 Patient encounter procedure DEFAULT PHYSICIAN Facility:[facility] Start: 07-01-2018 End: 07-02-2018 Patient encounter procedure DEFAULT PHYSICIAN Facility:[facility] Procedures Date Procedure Procedure Detail Performing Clinician Start: 10-29-[address] BETZY GARCIAS Comment on above: Performed By: #### C BC #### [facility] [address] [place] [address] Dr. Temo Mckeon Start: 08-28-2021 Extracorporeal shock [...] high dose seasonal, preservative-free Leo Garcias Other [facility] Other 03-23-2022 COVID-19 Pfizer (bivalent) Leo Garcias Other [facility] Other 02-24-2022 influenza virus vaccine, split virus (incl. purified surface antigen) Leo Garcias Other [facility] Other 02-24-2022 influenza, high dose seasonal, preservative-free Leo Garcias Other [facility] Other 03-26-2021 SARS-CoV-2 (COVID-19 ) mRNA BNT-162b2 vax Demetri ESTRELLA [facility] Comment on above: Result Comment: 2021: [id number] 02-21-2021 influenza virus vaccine, split virus (incl. purified surface antigen) Leo Garcias Other [facility] Other 02-07-2021 influenza virus vaccine, unspecified formulation Dmeetri ESTRELLA [facility] 07-30-2020 COVID-19 Vaccine Pfi zer - Documentation Purposes Only Erika Bender Other [facility] 07-08-2020 COVID-19 Vaccine Pfi zer - Documentation Purposes Only Erika Bender Other [facility] 05-10-2020 SARS-CoV-2 (COVID-19 ) mRNA BNT-162b2 vax Demetri ESTRELLA [facility] Comment on above: Result Comment: pt h as had 3 shots to date 02-29-2020 influenza virus vaccine, split virus (incl. purified surface antigen) Leo Garcias Other [facility] Other 02-16-2019 influenza virus vaccine, split virus (incl. purified surface antigen) Leo Garcias Other [facility] Other 01-24-2018 influenza virus vaccine, split virus (incl. purified surface antigen) Leo Garcias Other [facility] Other 01-24-2018 influenza virus vaccine, unspecified formulation Demetri ESTRELLA [facility] 01-24-2018 pneumococcal Conjuga te, unspecified formulation; Translations: [Need for prophylactic vaccination against Streptococcus pneumoniae (pneumococcus)] Leo Garcias Other [facility] Other 01-24-2018 pneumococcal polysaccharide vaccine, 23 valent Demetri ESTRELLA [facility] 02-18-2017 influenza virus vaccine, split virus (incl. purified surface antigen) Leo Garcias Other [facility] Other 02-18-2017 influenza virus vaccine, unspecified formulation Demetri ESTRELLA [facility] 02-12-2016 influenza virus vaccine, split virus (incl. purified surface antigen) Leo Garcias Other [facility] Other 02-12-2016 influenza virus vaccine, unspecified formulation Demetri ESTRELLA [facility] 02-28-2015 tetanus and diphther ia toxoids, adsorbed, preservative free, for adult use (5 Lf of tetanus toxoid and 2 Lf of diphtheria toxoid) Leo Garcias Other [facility] Other 02-28-2015 pneumococcal conjuga te vaccine, 13 valent Leo Garcias Other [facility] Other 02-16-2014 tetanus and diphther ia toxoids, adsorbed, preservative free, for adult use (5 Lf of tetanus toxoid and 2 Lf of diphtheria toxoid) Leo Garcias Other [facility] Other 02-08-2013 tetanus and diphther ia toxoids, adsorbed, preservative free, for adult use (5 Lf of tetanus toxoid and 2 Lf of diphtheria toxoid) Leo Garcias Other [facility] Other 02-17-2012 tetanus and diphther ia toxoids, adsorbed, preservative free, for adult use (5 Lf of tetanus toxoid and 2 Lf of diphtheria toxoid) Leo Garcias Other [facility] Other 02-13-2009 pneumococcal polysaccharide vaccine, 23 valent Leo Garcias Other [facility] Other 10-17-2003 Td(adult) unspecifie d formulation Demetri ESTRELLA [facility] Payers Date Payer Category Payer Medicare 2022 Private Health Insurance 1958 Medicare [id number] 2.1 [id number] 1959 Private Health Insurance [id number] 1946 Unknown [id number] 2.16.8 40.1.621707.3.579.2.647 1946 Unknown [id number] 2.16.8 40.1.113239.3.579.2.647 1946 Unknown [id number] 2.16.8 40.1.751875.3.579.2.647 1946 Unknown [id number] 2.16.84 0.1.920102.3.579.2.593 1946 Unknown [id number] 2.16.84 0.1.632673.3.579.2.593 1946 Unknown [id number] 2.16.84 0.1.306387.3.579.2.593 1946 Unknown [id number] 2.16.84 0.1.990185.3.579.2.593 1946 Unknown [id number] 2.16.84 0.1.589665.3.579.2.593 1946 Unknown [id number] 2.16.84 0.1.479931.3.579.2.593 1946 Unknown [id number] 2.16.84 0.1.765190.3.579.2.593 1946 Unknown [id number] 2.16.84 0.1.973840.3.579.2.593 1946 Unknown [id number] 2.16.8 40.1.762728.3.579.2.727 1946 Unknown [id number] 2.16. 840.1.880010.3.579.2.196 1946 Unknown [id number] 2.16. 840.1.439023.3.579.2.196 1946 Unknown [id number] 2.16. 840.1.427284.3.579.2.196 1946 Unknown [id number] 2.16. 840.1.807820.3.579.2.196 1946 Unknown [id number] 2.16. 840.1.182971.3.579.2.196 1946 Unknown [id number] 2.16. 840.1.553594.3.579.2.196 1946 Unknown [id number] 2.16.84 0.1.425932.3.579.2.1259 1946 Unknown [id number] 2.16.84 0.1.767697.3.579.2.1259 1946 Unknown [id number] 2.16.84 0.1.770907.3.579.2.1259 1946 Unknown [id number] 2.16.84 0.1.955211.3.579.2.1259 1946 Unknown [id number] 2.16.84 0.1.785184.3.579.2.1259 Unknown Social History Date Type Detail Facility Start: 01-30-2021 End: 08-31-2023 Tobacco smoking status Never smoked tobacco (finding) [facility] Other Sex Assigned At Male [facility] Other Tobacco smoking status Never [facility] [place] Functional Status Date Assessment Result Facility 08-31-2023 Functional Status N/A [facility] 08-24-2022 Functional Status N/A [facility] 02-23-2022 Functional Status N/A [facility] Clinical Notes 12-09-2020 to 08-31-2023 Note [...] urethra. Follow these instructions at home: Take zvcs-hko-lafybax and prescription medicines only as told by [...] provider. Document Revised: 11/12/2021 Document Reviewed: 11/12/2021 [employer] Patient Education 2022 [employer]. 08/31/2023 09:07:49 Urinary Incontinence Urinary Incontinence Urinary [...] nerve stimulation). ?For women, using a medical management specialist to prevent urine leaks. This is a [...] right after experiencing incontinence. General instructions Take qaup-vrn-ukogpri and prescription medicines only as told by [...] important. Where to find more information National [employer] [employer] Diabetes and Digestive and Kidney Diseases: www.niddk.nih.gov [employer]: www.urologyhealth.org Contact a health care [...] provider. Document Revised: 11/29/2020 Document Reviewed: 11/29/2020 [employer] Patient Education 2022 [employer]. 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 [facility] Other 09-20-20[facility] Clinic Note Chief Complaint: Patient [...] should problems arise Shalonda Rai MD, MPH, [facility], [facility], [facility] Interventional Cardiology Pager Email: [email or web address] Evaluation note* Encounter Date Diagnosis Assessment Notes Treatment Notes Treatment Clinical Notes Jan, Lumbosacral spondylosis with radiculopathy (ICD-10 - M47.27) [facility] Other 06-23-2023 Evaluation note* Encounter Date Diagnosis [...] use, the patient reduces the risk for WI, CVA, HTN, cardiac dysrhythmias and sudden cardiac [...] High risk medication use (ICD-10 - Z79.899) [facility] Other 04-17-2023 Hospital Discharge instructions Patient Education [...] urethra. Follow these instructions at home: Take uuth-afr-yqsgjcw and prescription medicines only as told by [...] 04/26/2006 Document Revised: 03/21/2019 Document Reviewed: 05/31/2017 [employer] Patient Education 2019 [employer]. 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 Follow Up Care 08/28/2021 11:53:17 With:SAMEER MONTIEL, Demetri Sequeira, URL Address: [facility] [address] , [place] [address]- [phone] When:08/24/2022 [facility] 03-28-2022 Hospital Discharge instructions Patient [...] Follow these instructions at home: Medicines Take yxla-uxv-gjptvag and prescription medicines only as told by [...] 05/15/2008 Document Revised: 08/07/2019 Document Reviewed: 03/17/2017 [employer] Patient Education 2020 [employer]. 08/04/2021 09:25:02 Calorie Counting for Weight Loss [...] 04/26/2006 Document Revised: 01/13/2019 Document Reviewed: 03/26/2017 [employer] Patient Education 2020 [employer]. 08/04/2021 09:24:51 Benign Prostatic Hyperplasia Benign Prostatic [...] urethra. Follow these instructions at home: Take psjl-wfw-vvexwvz and prescription medicines only as told by [...] 04/26/2006 Document Revised: 03/21/2019 Document Reviewed: 05/31/2017 [employer] Patient Education 2020 [employer]. Follow Up Care 01/30/2021 10:09:00 With:SAMEER MONTIEL, Demetri Sequeira, URL Address: [facility] [address] , [place] [address]- [phone] When: Unknown Comments:Will schedule RT ESWLF/u in 3-4 month due to new medication [facility] 11-23-2021 Evaluation note* Encounter Date Diagnosis Assessment Notes Treatment Notes Treatment Clinical Notes Mar, Dyspnea on exertion (ICD-10 - R06.00) Mar, Leg edema (ICD-10 - R60.0) [facility] Other 10-26-2021 Evaluation note* Encounter Date Diagnosis Assessment Notes Treatment Notes Treatment Clinical Notes Feb, Dyspnea on exertion (ICD-10 - R06.00) Feb, Leg edema (ICD-10 - R60.0) [facility] Other 08-02-2021 NoteHNO ID: [id number] Author: Amara Esqueda MD Service: ? Author [...] its relevant components. Amara Esqueda MD [facility]ments Appointment Date:11/07/2021 09:30:00 AM Scheduled Provider:Demetri ESTRELLA MD Location:[facility] Appointment Type:URO Office Visit [facility] Evaluation + Plan note Future Appointments Appointment Date:08/24/2022 10:30:00 AM Scheduled Provider:Demetri ESTRELLA MD Location:[facility] Appointment Type:URO Office Visit [facility] evaluation + Plan note Future Appointments Appointment Date:03/01/2023 09:15:00 AM Scheduled Provider:Demetri ESTRELLA MD Location:[facility] Appointment Type:URO Office Visit [facility] evaluation noteNo InformationNoMyCare Other History general Narrative - Reported* Type Description Date Medical History ADITHYA Medical History hypertension Medical History heart disease Surgical History bypass triple Surgical History 2 knee replacements Surgical History hiatal hernia Surgical History cataract x 2 Hospitalization History as above [facility] Other Hisjwxf general Narrative - Reported* Type Description Date [...] OF KIDNEY STONE Hospitalization History as above [facility] Other Hospital course Narrative No data available for this section [facility] [employer] progress note No data available for this section [facility] [employer] Summary Purpose Family History No Family History [...] 1 Lumbar spondylosis ( M47.816) Referral Organization [facility] Dieter Mireles C yashira Referring Provider First Name Leo Referring Provider Last Name Dieter Referring Provider Specialty Internal Me dicine Referred Organization [facility] Referred Provider Samantha Contreras Referred Address [address] [place], [place],[address] Referred Provider Specialty Pain Medicin e Referral [...] section and content) DATE CREATED AUTHOR 07/07/2018 [facility] DATE CREATED AUTHOR AUTHOR'S ORGANIZ ATION 12/09/2020 [facility] DATE CREATED AUTHOR AUTHOR'S ORGANIZ ATION 03/10/2021 [facility] DATE CREATED AUTHOR AUTHOR'S ORGANIZ ATION 03/01/2022 [facility] DATE CREATED AUTHOR AUTHOR'S ORGANIZ ATION 01/29/2023 [facility] DATE CREATED AUTHOR AUTHOR'S ORGANIZ ATION 09/01/2023 [facility] DATE CREATED AUTHOR AUTHOR'S ORGANIZ ATION 09/23/2023 [facility] DATE CREATED AUTHOR AUTHOR'S ORGANIZ ATION 01/06/[address] [facility] EPIC REASON FOR VISIT (unrecogniz ed section and content) Ref by Dr. Garcias for Dyspnea on exertion4 wk f/u MONTES, Leg Edema4 MONTH FOLLOW UPNo InformationVCU HEALTH COMMUNITY [facility]ORIAL HOSPITALlab resultsWELLMEMORIAL [facility]OS[facility]ITAL CENTRALNo Information3 month Follow up Patient Care team reji n (unrecognized section and content) Personnel Name: LEO GARCIAS DO Address: Address: [address] [facility] Personnel Name: LEO GARCIAS DO Address: Address: [address] [facility] [employer] [address] Personnel Name: LEO GARCIAS DO Address: Address: [address] [place] [address] FOR RECORDS PERTAINING TO PATIENTS WHO [...] BE BASED ON THE PRIMARY CLINICAL RECORDS. [employer] [facility]. provides no warranty or guarantee of the accuracy or completeness of information in this document.
--- NOTE | 2024-01-20 09:38 | P.CN_ITS ---
Consult Note: HPI Data of Consult Patient: known to practice within the last 3 years Consult date: 09/13/23 Requesting Physician: Blessing Benavides NP Primary Care Provider: Leo Garcias DO Consult Narrative Reason for consult: low back pain Narrative: 78yom who presents for assessment chronic low back pain. Patient recently underwent spinal cord stimulator placement 09/06/23 with less than 50% improvement ongoing. Pain 6/10 in low back with weakness to bilateral legs. Patient noticing significant improvement in weakness from water therapy.. Patient has stopped norco 7-325mg TID PRN as it was not beneficial, also stopped baclofen 10mg BID PRN due to ineffectivness. Patient has historically failed RFAs, ESIs, and PT/water therapy greater than 6 weeks. cc:: CC: Blessing Benavides NP Review of Systems ROS Status of ROS 10 or more systems reviewed and unremark able except as noted in history and below Musculoskeletal Reports: back pain PFSH PFSH Medical History Dyspnea on exertion ?R06.09 - Other forms of dyspnea (ICD-10) Arthritis ?M19.90 - Unspecified osteoarthritis, unspecified site (ICD-10) Right shoulder pain ?M25.511 - Pain in right shoulder (ICD-10) Back pain ?M54.9 - Dorsalgia, unspecified (ICD-10) Depression ?F32.A - Depression, unspecified (ICD-10) S/P extracorporeal shock wave therapy ?Z98.890 - Other specified postprocedural states (ICD-10) Glaucoma ?H40.9 - Unspecified glaucoma (ICD-10) Cataract ?H26.9 - Unspecified cataract (ICD-10) GERD (gastroesophageal reflux disease) ?K21.9 - Gastro-esophageal reflux disease without esophagitis (ICD-10) Hernia ?K46.9 - Unspecified abdominal hernia without obstruction or gangrene (ICD- 10) High cholesterol ?E78.00 - Pure hypercholesterolemia, unspecified (ICD-10) Right leg weakness ?R29.898 - Other symptoms and signs involving the musculoskeletal system (ICD-10) CVA (cerebral vascular accident) ?I63.9 - Cerebral infarction, unspecified (ICD-10) Extremity edema ?R60.0 - Localized edema (ICD-10) Coronary artery disease ?I25.10 - Atherosclerotic heart disease of [place] coronary artery without angina pectoris (ICD-10) Chronic low back pain ?M54.50 - Low back pain, unspecified (ICD-10) ?G89.29 - Other chronic pain (ICD-10) Lumbar stenosis ?M48.061 - Spinal stenosis, lumbar region without neurogenic claudication (ICD-10) Uses continuous positive airway pressure (CPAP) ventilation at home ?Z99.89 - Dependence on other enabling machines and devices (ICD-10) History of stroke ?Z86.73 - Personal history of transient ischemic attack (TIA), and cerebral infarction without residual deficits (ICD-10) Osteoarthritis ?M19.90 - Unspecified osteoarthritis, unspecified site (ICD-10) Upper back pain ?M54.9 - Dorsalgia, unspecified (ICD-10) Low back pain ?M54.50 - Low back pain, unspecified (ICD-10) Anxiety ?F41.9 - Anxiety disorder, unspecified (ICD-10) Kidney stone ?N20.0 - Calculus of kidney (ICD-10) Sleep apnea ?G47.30 - Sleep apnea, unspecified (ICD-10) Hypertension ?I10 - Essential (primary) hypertension (ICD-10) Surgical History History of colonoscopy ?Z98.890 - Other specified postprocedural states (ICD-10) History of heart artery stent ?Z95.5 - Presence of coronary angioplasty implant and graft (ICD-10) History of cardiac catheterization ?Z98.890 - Other specified postprocedural states (ICD-10) S/P cataract extraction and insertion of intraocular lens ?Z98.49 - Cataract extraction status, unspecified eye (ICD-10) ?Z96.1 - Presence of intraocular lens (ICD-10) S/P triple vessel bypass ?Z95.1 - Presence of aortocoronary bypass graft (ICD-10) History of knee replacement ?Z96.659 - Presence of unspecified artificial knee joint (ICD-10) History of repair of hiatal hernia ?Z98.890 - Other specified postprocedural states (ICD-10) ?Z87.19 - Personal history of other diseases of the digestive system (ICD-10) Family History Other Family history of cancer Family history of diabetes mellitus Family history of heart disease Family history of hypertension Family history of myocardial infarction Social History Within the past year, how often did you have a drink containing alcohol: monthly or less Smoking status: Never smoker Highest level of school completed/degree received: high school graduate Meds Home Medications and Allergies Home Medications ?Medication ?Instructions ?Recorded ?Confirmed ?Type amlodipine 10 mg-benazepril 20 mg 1 cap PO DAILY 02/08/23 09/06/23 History capsule aspirin 81 mg tablet,delayed 81 mg PO DAILY 02/08/23 09/06/23 History release (Adult Aspirin Regimen) atorvastatin 80 mg tablet 80 mg PO DAILY 02/08/23 09/06/23 History citalopram 20 mg tablet 20 mg PO DAILY 02/08/23 09/06/23 History clopidogrel 75 mg tablet 75 mg PO DAILY 02/08/23 09/06/23 History finasteride 5 mg tablet 5 mg PO DAILY 02/08/23 08/24/23 History furosemide 20 mg tablet 20 mg PO DAILY 02/08/23 08/24/23 History isosorbide mononitrate 60 mg 60 mg PO DAILY 02/08/23 08/24/23 History tablet,extended release 24 hr metoprolol succinate 50 mg 50 mg PO DAILY 02/08/23 09/06/23 History tablet,extended release 24 hr oxybutynin chloride 15 mg 15 mg PO DAILY 02/08/23 09/06/23 History tablet,extended release 24 hr tamsulosin 0.4 mg capsule 0.4 mg PO Q24H 02/08/23 09/06/23 History oxycodone-acetaminophen 7.5 mg-325 1 tab PO TID PRN pain #90 tabs 08/17/23 09/06/23 Rx mg tablet (Percocet) cephalexin 500 mg capsule 500 mg PO TID #21 caps 09/06/23 Rx hydrocodone 7.5 mg-acetaminophen 1 tab PO TID PRN pain #90 tabs 09/22/23 Rx 325 mg tablet baclofen 10 mg tablet 10 mg PO BID PRN muscle spasm #60 11/10/23 Rx tabs Allergies Allergy/AdvReac Type Severity Reaction Status Date / Time No Known Drug Allergies Allergy Verified 09/06/23 09:11 Exam Constitutional Documenting provider has reviewed patient's vital signs: yes Common normals: no apparent distress, oriented x3, healthy appearing, alert and well nourished General appearance: cooperative HENMT Common normals: normocephalic, hearing grossly normal bilaterally and moist oral mucous membranes Head and scalp: normocephalic Eye Common normals: PERRL Pupil: PERRL Neck & C-Spine Common normals: full ROM General: normal visual inspection Chest Common normals: inspection of chest normal Respiratory Common normals: normal respiratory effort, no retractions and no use of accessory muscles Back & Pelvis Lumbar spine/lower back: normal to inspection, ROM limited and straight leg raise negative bilaterally Other: strength 5/5 in BLE increased pain with forward flexion improved with facet loading and rest sensation intact BLE Extremity Common normals: normal to inspection and full ROM Neuro Common normals: oriented x3, CN's II-XII intact bilaterally, moves all extremities, no focal motor deficits, no sensory deficits noted and deep tendon reflexes 2+ bilaterally Sensorium/orientation: alert Motor exam: strength 5/5 throughout and no movement abnormalities noted Psych Common normals: mental status grossly normal, thought process normal, cooperative, affect normal, speech normal and activity/motor behavior normal Speech: normal speech Thought process: normal thought process Results Additional Findings Additional findings: If on a controlled substance or opioids, I have checked an [place] report on this patient and there are no aberrancies noted in the prescribing history.??If on a controlled substance or opioid a drug screen was completed and reviewed within the last year, and if there has not been a drug screen completed we ordered one today to monitor higher risk, state monitored pain medication use. As part of providing excellent, safe, comprehensive care, the following was completed at our patient's visit: 1. A medication reconciliation and review to ensure accurate knowledge of current/active medications, including asking our patients to inform us about any [id number] medications or herbal remedies/nutritional supplements/alternative remedies. 2. A review to specifically ensure our patients have had annual screening for sc reening for depression, screening for tobacco use, and screening for unhealthy alcohol use. For concerning screenings had a discussion with the patient, provided patient education, and recommended follow-up with primary care provider when appropriate. If patient noted with a risk of falling, they received education on strength, gait, and balance training to prevent future risk of falling. Assessment and Plan Assessment and Plan (1) Vertebrogenic low back pain: Assessment and Plan: Lumbar MRI 02/15/23 FINDINGS: For discussion purposes the cephalad most axial T2 weighted image defines the T11 vertebral level. Osseous: The vertebral body heights are maintained. No fracture. Osteophytes and disc height loss at all lumbar levels. Modic type I Modic type II endplate edema at L1-L2. Modic type I Modic type II endplate degenerative changes at L3-L4. Conus medullaris/cauda equina: The conus medullaris terminates at the L1-L2 disc level. No abnormal signal is demonstrated within the distal aspect of the spinal cord. Soft tissues: The abdominal aorta is normal in caliber. No retroperitoneal lymphadenopathy. Bilateral renal cysts. Disc levels: T11-T12: Small broad-based posterior disc bulge superimposed right articular zone disc extrusion extending caudally along the superior one quarter of the T12 vertebral body. This mildly narrows the right subarticular recess. Mild facet arthrosis. Mild right foraminal stenosis. T12-L1: Small broad-based posterior disc bulge. Mild narrowing of the spinal canal. Foramina are patent. L1-L2: Broad-based posterior disc bulge. Mild spinal canal stenosis. Mild left and mild right foraminal stenosis. L2-L3: Broad-based posterior disc bulge. Mild narrowing of the spinal canal neural foramina. L3-L4: Broad-based posterior disc bulge. Mild spinal canal and neural foraminal stenosis. Mild facet arthrosis. L4-L5: Moderate right and mild left facet arthrosis. Broad-based posterior disc bulge. Mild spinal canal and bilateral foraminal stenosis. Mild bilateral subarticular recess stenosis L5-S1: Broad-based posterior disc bulge. Mild narrowing of the left subarticular recess. Mild facet arthrosis. Mild to moderate foraminal stenosis. (2) Lumbar stenosis with neurogenic claudication: (3) Chronic prescription opiate use: Assessment and Plan: patient no longer needing percocet 7.5mg TID PRN, has found benefit to norco 7.5mg TID PRN. continue to wean as tolerated with assist of spinal cord stimulator (4) Chronic low back pain: Plan refer to Dr Beltran at [facility] for consideration of intracept for vertebrogenic pain at L1-2, patient has chronic low back pain improved with sitting. patient has failed numerous level facet RFAs in the past, ESIs at unknown levels, and mild relief from [employer] spinal cord stimulator which he has had since august 2023. continue f/u with [facility] for stimulator programming, finding mild benefit but continues to have moderate to severe upper lumbar back pain start gabapentin 300mg BID, pt to call to evaluate response, risks vs benefits reviewed cannot take NSAIDs on plavix not finding benefit to baclofen or norKATHY curtis at this time pt interested in trialing medical marijuana f/u 3 months, sooner if needed
== END 2024-01-20 09:00 | disposition home or self-care (01) ==
LOC: PM 09:00
PROVIDERS: PCP Internal Medicine; Visit Provider Nurse Practitioner
DX: M54.50 Low back pain, unspecified (principal); M48.062 Spinal stenosis, lumbar region with neurogenic claudication; Z79.891 Long term (current) use of opiate analgesic
CPT/HCPCS: G0463

== ENCOUNTER 2024-01-31 09:49 | Outpatient (OUT) | payer MEDICARE, OTHER, SELFPAY ==
--- OUTSIDE RECORDS SUMMARY | 2024-01-31 10:13 | XMS_ITS | CCD ---
Author Organization [facility]iniSyky Care Team Providers Care Cupola Worker Name Role Phone PHYSICIAN, DEFAULT Admitting Unavailable [...] ESTRELLA, DR FOX Attending Unavailable BALL, DR VAZQEUZ Primary Care Unavailable ESTRELLA, DR FOX Consulting [...] Date of Onset Reaction(s) Facility (1 source) 23533,00; Translations: [63426,00] Propensity to adverse reactions (disorder) [facility] Repository (2 sources) patient allergy list reviewed by nurse or physicia Propensity to adverse reactions Comment:Done WittyParrot Other (1 source) No Known Medication Allergies; Translations: [No Known Medication Allergies] Propensity to adverse reactions (disorder) [facility] Repository Medications Current Medications Medication Drug [...] # 90 tab(s), Refills(s) 3, Pharmacy: [facility]/pharmacy #[id number], 164, cm, 08/24/22 10:54:00 EDT, Height/Length [...] # 90 tab(s), Refills(s) 3, Pharmacy: [facility]/pharmacy #[id number], 164, cm, 08/24/22 10:54:00 EDT, Height/Length [...] Daily, # 30 tab(s), Refills(s) 11, Pharmacy: [facility]/pharmacy #[id number], 164, cm, 08/04/21 8:56:00 EDT, Height/Length Dosing, 139, kg, 08/04/21 8:56:00 EDT, Weight Dosing Start Date: 08/04/21 Status: Ordered tamsulosin hydrochloride 0.4 mg oral capsule (13 sources) alpha-Adrenergic Remy Start: 07-12-2023 take 1 capsule by mouth twice daily tamsulosin 0.4 mg Cap 0.4 mg = 1 cap(s), Oral, BID, # 180 cap(s), Refills(s) 3, Pharmacy: [facility]/pharmacy #[id number], 164, cm, 08/24/22 10:54:00 EDT, Height/Length Dosing, 138, kg, 08/24/22 10:54:00 EDT, Weight Dosing Start Date: 07/12/23 Status: Ordered Start: 06-26-2022 take 1 capsule by mo [facility] twice daily tamsulosin 0.4 mg Cap 0.4 mg = 1 cap(s), Oral, BID, # 180 cap(s), Refills(s) 3, Pharmacy: [facility]/pharmacy #[id number], 164, cm, 02/23/22 11:10:00 EDT, Height/Length Dosing, 139, kg, 02/23/22 11:10:00 EDT, Weight Dosing Start Date: 06/26/22 Status: Ordered Start: 02-23-2022 End: 06-23-2022 take 1 capsule by mouth twice daily tamsulosin 0.4 mg Cap 0.4 mg = 1 cap(s), Oral, BID, X 30 day(s), # 60 cap(s), Refills(s) 3, Pharmacy: [facility]/pharmacy #[id number], 164, cm, 02/23/22 11:10:00 EDT, Height/Length Dosing, 139, kg, 02/23/22 11:10:00 EDT, Weight Dosing Start Date: 02/23/22 Stop Date: 06/23/22 Status: Ordered Start: 11-22-2020 End: 11-17-2021 take 1 capsule by mouth twice daily Flomax 0.4 mg Cap 0.4 mg = 1 cap(s), Oral, BID, X 90 day(s), # 180 cap(s), Refills(s) 3, Pharmacy: [facility]/pharmacy #[id number], 164, cm, 07/26/20 9:40:00 EDT, Height/Length Dosing, 138.5, kg, 07/26/20 9:40:00 EDT, Weight Dosing Start Date: 11/22/20 Stop Date: 11/17/21 Status: Ordered take 1 capsule by [facility] every twenty-four hours Flomax 0.4 [...] Coronary arteriosclerosis; Translations: [Atherosclerotic heart disease of [place] coronary artery without angina pectoris] Onset: 01-27-2023 [...] unspecified] Chronic Other aftercare (3 sources) Other press tender long goods (current) drug therapy; Translations: [OTH DIAL MARKER CURRENT DRUG THERAPY] Onset: 08-25-2021 Episodic Other aftercare (2 sources) Long-term current use of drug therapy; Translations: [Other press tender long goods (current) drug therapy] Episodic Other and ill-defined [...] Resolved: 01-08-2021 Episodic Other aftercare (1 source) oil heaterman (current) use of anticoagulants; Translations: [DIAL MARKER CURRNT USE ANTICOAGULANTS] Onset: 08-29-2021 Episodic Other aftercare (1 source) oil heaterman (current) use of antithrombotics/ant iplatelets; Translations: [DIAL MARKER 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 Take [id number] and prescription medicines only as told by [...] the medicine (more content not included)... Normal [facility] Urology Office/Clinic Noteon 08-31-2023 Urology Office/Clinic [...] with voice recognition artificial intelligence software, specifically [employer], [email or web address] and or [employer]. Substitutions may have occurred due to the [...] Urnls Dip Stick Auto w/o Microscopy POC 72974 3. 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 Normal [facility] Comment on above: Result Comment: Elec tronically Signed By: ISAAC Huston APRN, Orquidea Blue\.edi\Date and Time Signed: 08/31/23 09:08 EDT RAD - MISCon 08-17-2023 RAD - MISC [id number] IFF Normal [facility] Office Visiton 01-27-2023 Follow-up visit [id number] Ralph Almanzar ald H 1945 M Date Provider Department Center 01/27/2023 [id number], E[facility]AB [facility] No family history on file Level of Service:82009 [place] OFFICE/OUTPATIENT ESTABLISHED MOD MDM 30-39 MIN Normal [facility] 36on 07-07-2022 36 Notes: Rx refused. N ot seen since December 2020. Normal [facility] BNPon 02-17-2022 Natriuretic peptide B (Bld) [Mass/Vol] 330.0 pg/mL Normal <=1,800.0 [facility] Comment on above: Performed By: #### B ORTHOTIC AND PROSTHETIC TECHNICIAN, TSH, BMP #### [facility] [address] [place] [address] Dr. Temo Mckeon CBC AUTO DIFFon 02-17-2022 BASO # 0.1 103/ul Normal 0.0-0.1 [facility] Comment on above: Performed By: #### C BC #### [facility] [address] [place] [address] Dr. Temo Mckeon Basophils/100 WBC (Bld) 0.4 % Normal 0.2-2.0 [facility] Comment on above: Performed By: #### C BC #### [facility] [address] [place] [address] Dr. Temo Mckeon EO # 0.3 103/ul Normal 0.0-0.7 [facility] Comment on above: Performed By: #### C BC #### [facility] [address] [place] [address] Dr. Temo Mckeon Eosinophils/100 WBC (Bld) 2.8 % Normal 0.9-7.0 [facility] Comment on above: Performed By: #### C BC #### [facility] [address] [place] [address] Dr. Temo Mckeon Erythrocyte distribution width (RBC) [Ratio] 13.5 % Normal 11.0-15.0 [facility] Comment on above: Performed By: #### C BC #### [facility] [address] [place] [address] Dr. Temo Mckeon Hematocrit (Bld) [Volume fraction] 38.5 % Critically low 42.0-54.0 [facility] Comment on above: Performed By: #### C BC #### [facility] [address] [place] [address] Dr. Temo Mckeon Hemoglobin (Bld) [Mass/Vol] 12.5 g/dL Critically low 14.0-18.0 [facility] Comment on above: Performed By: #### C BC #### [facility] [address] [place] [address] Dr. Temo Mckeon IG # 0.11 10e3/ul Critically high 0.00-0.03 [facility] Comment on above: Performed By: #### C BC #### [facility] [address] [place] [address] Dr. Temo Mckeon IG % 0.9 % Critically high 0.0-0.[address] [facility] Comment on above: Performed By: #### C BC #### [facility] [address] [place] [address] Dr. Temo Mckeon LYMPH # 2.1 103/ul Normal 1.2-3.8 [facility] Comment on above: Performed By: #### C BC #### [facility] [address] [place] [address] Dr. Temo Mckeon Lymphocytes/100 WBC (Bld) 17.5 % Critically low 20.5-60.0 [facility] Comment on above: Performed By: #### C BC #### [facility] [address] [place] [address] Dr. Temo Mckeon MANUAL DIFF REQ NO Normal [facility] Comment on above: Performed By: #### C BC #### [facility] [address] [place] [address] Dr. Temo Mckeon MCH (RBC) [Entitic mass] 30.6 pg Normal 25.9-34.0 [facility] Comment on above: Performed By: #### C BC #### [facility] [address] [place] [address] Dr. Temo Mckeon MCHC (RBC) [Mass/Vol] 32.5 g/dL Normal 29.9-35.2 [facility] Comment on above: Performed By: #### C BC #### [facility] [address] [place] [address] Dr. Temo Mckeon MCV (RBC) [Entitic vol] 94.1 fL Critically high 80.0-94.0 [facility] Comment on above: Performed By: #### C BC #### [facility] [address] [place] [address] Dr. Temo Mckeon MONO # 0.9 103/ul Critically high 0.3-0.[address] [facility] Comment on above: Performed By: #### C BC #### [facility] [address] [place] [address] Dr. Temo Mckeon Monocytes/100 WBC (Bld) 7.9 % Normal 1.7-12.0 [facility] Comment on above: Performed By: #### C BC #### [facility] [address] [place] [address] Dr. Temo Mckeon NEUT # 8.4 103/ul Critically high 1.4-6.[address] [facility] Comment on above: Performed By: #### C BC #### [facility] [address] [place] [address] Dr. Temo Mckeon Neutrophils/100 WBC (Bld) 70.5 % Normal 43.0-75.0 [facility] Comment on above: Performed By: #### C BC #### [facility] [address] [place] [address] Dr. Temo Mckeon Platelet mean volume (Bld) [Entitic vol] 10.5 fL Normal 9.5-13.5 [facility] Comment on above: Performed By: #### C BC #### [facility] [address] [place] [address] Dr. Temo Mckeon PLT 172 103/ul Normal 150-450 [facility] Comment on above: Performed By: #### C BC #### [facility] [address] [place] [address] Dr. Temo Mckeon RBC 4.09 106/ul Critically low 4.70-6.[address] [facility] Comment on above: Performed By: #### C BC #### [facility] [address] [place] [address] Dr. Temo Mckeon WBC 11.9 103/ul Critically high 4.0-11.0 [facility] Comment on above: Performed By: #### C BC #### [facility] [address] [place] [address] Dr. Temo Mckeon PROF CHEM 8 (BAS METB)on Anion gap [Moles/Vol] 14.2 mmol/L Normal [facility] Comment on above: Performed By: #### B ORTHOTIC AND PROSTHETIC TECHNICIAN, TSH, BMP #### [facility] [address] [place] [address] Dr. Temo Mckeon Calcium [Mass/Vol] 9.1 mg/dL Normal 8.5-10.1 [facility] Comment on above: Performed By: #### B ORTHOTIC AND PROSTHETIC TECHNICIAN, TSH, BMP #### [facility] [address] [place] [address] Dr. Temo Mckeon Chloride [Moles/Vol] 105 mmol/L Normal 98-107 [facility] Comment on above: Performed By: #### B ORTHOTIC AND PROSTHETIC TECHNICIAN, TSH, BMP #### [facility] [address] [place] [address] Dr. Temo Mckeon CO2 [Moles/Vol] 25.3 mmol/L Normal 21.0-32.0 [facility] Comment on above: Performed By: #### B ORTHOTIC AND PROSTHETIC TECHNICIAN, TSH, BMP #### [facility] [address] [place] [address] Dr. Temo Mckeon Creatinine [Mass/Vol] 1.72 mg/dL Critically high 0.70-1.30 [facility] Comment on above: Performed By: #### B ORTHOTIC AND PROSTHETIC TECHNICIAN, TSH, BMP #### [facility] [address] [place] [address] Dr. Temo Mckeon EGFR-AF CZECH 47 mL/min/1.73m2 Critically low >=60 [facility] Comment on above: Performed By: #### B ORTHOTIC AND PROSTHETIC TECHNICIAN, TSH, BMP #### [facility] [address] [place] [address] Dr. Temo Mckeon EGFR-NON AF CZECH 39 mL/min/1.73m2 Critically low >=60 [facility] Comment on above: Performed By: #### B ORTHOTIC AND PROSTHETIC TECHNICIAN, TSH, BMP #### [facility] [address] [place] [address] Dr. Temo Mckeon Glucose [Mass/Vol] 134 mg/dL Critically high 74-106 [facility] Comment on above: Performed By: #### B ORTHOTIC AND PROSTHETIC TECHNICIAN, TSH, BMP #### [facility] [address] [place] [address] Dr. Temo Mckeon Potassium [Moles/Vol] 4.5 mmol/L Normal 3.5-5.1 [facility] Comment on above: Performed By: #### B ORTHOTIC AND PROSTHETIC TECHNICIAN, TSH, BMP #### [facility] [address] [place] [address] Dr. Temo Mckeon Sodium [Moles/Vol] 140 mmol/L Normal 136-145 [facility] Comment on above: Performed By: #### B ORTHOTIC AND PROSTHETIC TECHNICIAN, TSH, BMP #### [facility] [address] [place] [address] Dr. Temo Mckeon Urea nitrogen [Mass/Vol] 36.0 mg/dL Critically high 7.0-18.0 [facility] Comment on above: Performed By: #### B ORTHOTIC AND PROSTHETIC TECHNICIAN, TSH, BMP #### [facility] [address] [place] [address] Dr. Temo Mckeon Urea nitrogen/Creatinine [Mass ratio] 20.9 mg/mg Normal [facility] Comment on above: Performed By: #### B ORTHOTIC AND PROSTHETIC TECHNICIAN, TSH, BMP #### [facility] [address] [address] [address] Temo Mckeon TSHon 02-17-2022 TSH 1.708 uIU/mL Normal 0.358-3.740 [facility] Comment on above: Performed By: #### B ORTHOTIC AND PROSTHETIC TECHNICIAN, TSH, BMP #### [facility] [address] [address] [address] Temo Mckeon XR KUB 1 VIEWon [...] RADU CHRISTENSEN Date: 2022-02-17 11:43 Normal [facility] METHYLMALONIC ACID (MMA)on 0 11-01-2021 Methylmalonic Acid, Serum 205 nmol/L Normal 0-378 [facility] Comment on above: Performed By: #### C BC #### [facility] [address] [address] [address] Temo Mckeon FOLATE ([facility])on 2 Folate >20.0 Normal >3.0 [facility] Comment on above: Result Comment: A se rum folate concentration of less than 3.1 ng/mL is considered to represent clinical deficiency. Performed By: #### B MP, ALT, LIPID #### [facility] [address] [address] [address] Temo Mckeon CBC AUTO DIFFon 10-29-2021 BASO # 0.1 103/ul Normal 0.0-0.1 [facility] Comment on above: Performed By: #### C BC #### [facility] [address] [address] [address] Temo Mckeon Basophils/100 WBC (Bld) 0.5 % Normal 0.2-2.0 [facility] Comment on above: Performed By: #### C BC #### [facility] [address] [address] [address] Temo Mckeon EO # 0.3 103/ul Normal 0.0-0.7 [facility] Comment on above: Performed By: #### C BC #### [facility] [address] [address] [address] Temo Mckeon Eosinophils/100 WBC (Bld) 3.3 % Normal 0.9-7.0 [facility] Comment on above: Performed By: #### C BC #### [facility] [address] [address] [address] Temo Mckeon Erythrocyte distribution width (RBC) [Ratio] 13.3 % Normal 11.0-15.0 [facility] Comment on above: Performed By: #### C BC #### [facility] [address] [place] [address] Dr. Temo Mckeon Hematocrit (Bld) [Volume fraction] 40.4 % Critically low 42.0-54.0 [facility] Comment on above: Performed By: #### C BC #### [facility] [address] [place] [address] Dr. Temo Mckeon Hemoglobin (Bld) [Mass/Vol] 13.4 g/dL Critically low 14.0-18.0 [facility] Comment on above: Performed By: #### C BC #### [facility] [address] [address] [address] Temo Mckeon IG # 0.06 10e3/ul Critically high 0.00-0.03 [facility] Comment on above: Performed By: #### C BC #### [facility] [address] [place] [address] Dr. Temo Mckeon IG % 0.6 % Critically high 0.0-0.5 [facility] Comment on above: Performed By: #### C BC #### [facility] [address] [place] [address] Dr. Temo Mckeon LYMPH # 2.2 103/ul Normal 1.2-3.8 [facility] Comment on above: Performed By: #### C BC #### [facility] [address] [place] [address] Dr. Temo Mckeon Lymphocytes/100 WBC (Bld) 22.6 % Normal 20.5-60.0 [facility] Comment on above: Performed By: #### C BC #### [facility] [address] [place] [address] Dr. Temo Mckeon MANUAL DIFF REQ NO Normal [facility] Comment on above: Performed By: #### C BC #### [facility] [address] [place] [address] Dr. Temo Mckeon MCH (RBC) [Entitic mass] 30.8 pg Normal 25.9-34.0 [facility] Comment on above: Performed By: #### C BC #### [facility] [address] [place] [address] Dr. Temo Mckeon MCHC (RBC) [Mass/Vol] 33.2 g/dL Normal 29.9-35.2 [facility] Comment on above: Performed By: #### C BC #### [facility] [address] [place] [address] Dr. Temo Mcekon MCV (RBC) [Entitic vol] 92.9 fL Normal 80.0-94.0 [facility] Comment on above: Performed By: #### C BC #### [facility] [address] [place] [address] Dr. Temo Mckeon MONO # 0.7 103/ul Normal 0.3-0.8 [facility] Comment on above: Performed By: #### C BC #### [facility] [address] [place] [address] Dr. Temo Mckeon Monocytes/100 WBC (Bld) 7.6 % Normal 1.7-12.0 [facility] Comment on above: Performed By: #### C BC #### [facility] [address] [place] [address] Dr. Temo Mckeon NEUT # 6.2 103/ul Normal 1.4-6.5 [facility] Comment on above: Performed By: #### C BC #### [facility] [address] [place] [address] Dr. Temo Mckeon Neutrophils/100 WBC (Bld) 65.4 % Normal 43.0-75.0 [facility] Comment on above: Performed By: #### C BC #### [facility] [address] [place] [address] Dr. Temo Mckeon Platelet mean volume (Bld) [Entitic vol] 10.5 fL Normal 9.5-13.5 [facility] Comment on above: Performed By: #### C BC #### [facility] [address] [place] [address] Dr. Temo Mckeon PLT 169 103/ul Normal 150-450 [facility] Comment on above: Performed By: #### C BC #### [facility] [address] [place] [address] Dr. Temo Mckeon RBC 4.35 106/ul Critically low 4.70-6.10 [facility] Comment on above: Performed By: #### C BC #### [facility] [address] [place] [address] Dr. Temo Mckeon WBC 9.5 103/ul Normal 4.0-11.0 [facility] Comment on above: Performed By: #### C BC #### [facility] [address] [place] [address] Dr. Temo Mckeon FERRITINon 10-29-2021 Ferritin [Mass/Vol] 423.0 ng/mL Critically high 26.0-388.0 [facility] Comment on above: Performed By: #### C BC #### [facility] [address] [place] [address] Dr. Temo Mckeon IRON AND TIBCon 10-29-2021 % SATURATION 25.6 % Normal [facility] Comment on above: Performed By: #### C BC #### [facility] [address] [address] [address] Temo Mckeon Iron [Mass/Vol] 79.0 ug/dL Normal 65.0-175.[address] [facility] Comment on above: Performed By: #### C BC #### [facility] [address] [address] [address] Temo Mckeon TIBC DIRECT 308.0 ug/dL Normal 250.0-450.0 [facility] Comment on above: Performed By: #### C BC #### [facility] [address] [address] [address] Temo Mckeon LIPID PROFILEon 10-29-2021 CHOL-HDL RATIO NORM SEE BELOW Normal [facility] Comment on above: Result Comment: 3.3 - 4.4 LOW RISK 4.4 - 7.1 AVERAGE RISK 7.1 - 11.0 MODERATE RISK >11.0 HIGH RISK Performed By: #### B MP, ALT, LIPID #### [facility] [address] [address] [address] Temo Mckeon Cholesterol [Mass/Vol] 93 mg/dL Normal <=200 [facility] Comment on above: Performed By: #### B MP, ALT, LIPID #### [facility] [address] [address] [address] Temo Mckeon Cholesterol in HDL [Mass/Vol] 40 mg/dL Normal 40-60 [facility] Comment on above: Performed By: #### B MP, ALT, LIPID #### [facility] [address] [place], [place] [address] Dr. Temo Mckeon Cholesterol in LDL [Mass/Vol] 35.4 mg/dL Normal [facility] Comment on above: Performed By: #### B MP, ALT, LIPID #### [facility] [address] [address] [address] Temo Mckeon Cholesterol.total/C holesterol in HDL [Mass ratio] 2.3 {ratio} Normal [facility] Comment on above: Performed By: #### B MP, ALT, LIPID #### [facility] [address] [address] [address] Temo Mckeon HDL NORMAL > or = 60 mg/dl - LO W CARDIOVASCULAR RISK <40 mg/dl - HIGH CARDIOVASCULAR RISK Normal [facility] Comment on above: Performed By: #### B MP, ALT, LIPID #### [facility] [address] [address] [address] Temo Mckeon LDL CALC NORMAL SEE BELOW Normal [facility] Comment on above: Result Comment: <100 mg/dl OPTIMAL 100 - 129 mg/dl NEAR OR ABOVE OPTIMAL 130 - 159 mg/dl BORDERLINE HIGH 160 - 189 mg/dl HIGH >190 mg/dl VERY HIGH Performed By: #### B MP, ALT, LIPID #### [facility] [address] [address] [address] Temo Mckeon Triglyceride [Mass/Vol] 88 mg/dL Normal <=150 [facility] Comment on above: Performed By: #### B MP, ALT, LIPID #### [facility] [address] [address] [address] Temo Mckeon VLDL CALC 17.6 mg/dL Normal [facility] Comment on above: Performed By: #### B MP, ALT, LIPID #### [facility] [address] [address] [address] Temo Mckeon PROF CHEM 8 (BAS METB)on Anion gap [Moles/Vol] 14.6 mmol/L Normal [facility] Comment on above: Performed By: #### B MP, ALT, LIPID #### [facility] [address] [address] [address] Temo Mckeon Calcium [Mass/Vol] 8.8 mg/dL Normal 8.5-10.1 [facility] Comment on above: Performed By: #### B MP, ALT, LIPID #### [facility] [address] [address] [address] Temo Mckeon Chloride [Moles/Vol] 106 mmol/L Normal 98-107 [facility] Comment on above: Performed By: #### B MP, ALT, LIPID #### [facility] [address] [address] [address] Temo Mckeon CO2 [Moles/Vol] 23.8 mmol/L Normal 21.0-32.0 [facility] Comment on above: Performed By: #### B MP, ALT, LIPID #### [facility] [address] [address] [address] Temo Mckeon Creatinine [Mass/Vol] 1.57 mg/dL Critically high 0.70-1.30 [facility] Comment on above: Performed By: #### B MP, ALT, LIPID #### [facility] [address] [place] [address] Dr. Temo Mckeon EGFR-AF CZECH 52 mL/min/1.73m2 Critically low >=60 [facility] Comment on above: Performed By: #### B MP, ALT, LIPID #### [facility] [address] [place] [address] Dr. Temo Mckeon EGFR-NON AF CZECH 43 mL/min/1.73m2 Critically low >=60 [facility] Comment on above: Performed By: #### B MP, ALT, LIPID #### [facility] [address] [place] [address] Dr. Temo Mckeon Glucose [Mass/Vol] 148 mg/dL Critically high 74-106 [facility] Comment on above: Performed By: #### B MP, ALT, LIPID #### [facility] [address] [place] [address] Dr. Temo Mckeon Potassium [Moles/Vol] 4.4 mmol/L Normal 3.5-5.1 [facility] Comment on above: Performed By: #### B MP, ALT, LIPID #### [facility] [address] [place] [address] Dr. Temo Mckeon Sodium [Moles/Vol] 140 mmol/L Normal 136-145 [facility] Comment on above: Performed By: #### B MP, ALT, LIPID #### [facility] [address] [place] [address] Dr. Temo Mckeon Urea nitrogen [Mass/Vol] 31.0 mg/dL Critically high 7.0-18.0 [facility] Comment on above: Performed By: #### B MP, ALT, LIPID #### [facility] [address] [place] [address] Dr. Temo Mckeon Urea nitrogen/Creatinine [Mass ratio] 19.7 mg/mg Normal [facility] Comment on above: Performed By: #### B MP, ALT, LIPID #### [facility] [address] [place] [address] Dr. Temo Mckeon SGPTon 10-29-2021 ALT [Catalytic activity/Vol] 39 U/L Normal 16-63 [facility] Comment on above: Performed By: #### B MP, ALT, LIPID #### [facility] [address] [place] [address] Dr. Temo Mckeon VITAMIN B12on 10-29-2021 Cobalamin (Vitamin B12) [Mass/Vol] 675.0 pg/mL Normal 193.0-986.0 [facility] Comment on above: Performed By: #### C BC #### [facility] [address] [place] [address] Dr. Temo Mckeon XR KUB 1 VIEWon [...] MARTA HALE Date: 2021-08-29 19:34 Normal [facility] CBC AUTO DIFFon 08-21-2021 BASO # 0.0 103/ul Normal 0.0-0.1 [facility] Comment on above: Performed By: #### C BC #### [facility] [address] [place] [address] Dr. Temo Mckeon Basophils/100 WBC (Bld) 0.3 % Normal 0.2-2.0 [facility] Comment on above: Performed By: #### C BC #### [facility] [address] [place] [address] Dr. Temo Mckeon EO # 0.3 103/ul Normal 0.0-0.7 [facility] Comment on above: Performed By: #### C BC #### [facility] [address] [place] [address] Dr. Temo Mckeon Eosinophils/100 WBC (Bld) 3.2 % Normal 0.9-7.0 [facility] Comment on above: Performed By: #### C BC #### [facility] [address] [place] [address] Dr. Temo Mckeon Erythrocyte distribution width (RBC) [Ratio] 13.5 % Normal 11.0-15.0 [facility] Comment on above: Performed By: #### C BC #### [facility] [address] [place] [address] Dr. Temo Mckeon Hematocrit (Bld) [Volume fraction] 38.8 % Critically low 42.0-54.0 [facility] Comment on above: Performed By: #### C BC #### [facility] [address] [place] [address] Dr. Temo Mckeon Hemoglobin (Bld) [Mass/Vol] 12.8 g/dL Critically low 14.0-18.0 [facility] Comment on above: Performed By: #### C BC #### [facility] [address] [place] [address] Dr. Temo Mckeon IG # 0.05 10e3/ul Critically high 0.00-0.03 [facility] Comment on above: Performed By: #### C BC #### [facility] [address] [place] [address] Dr. Temo Mckeon IG % 0.5 % Normal 0.0-0.5 [facility] Comment on above: Performed By: #### C BC #### [facility] [address] [place] [address] Dr. Temo Mckeon LYMPH # 1.8 103/ul Normal 1.2-3.8 [facility] Comment on above: Performed By: #### C BC #### [facility] [address] [place] [address] Dr. Temo Mckeon Lymphocytes/100 WBC (Bld) 19.6 % Critically low 20.5-60.0 [facility] Comment on above: Performed By: #### C BC #### [facility] [address] [place] [address] Dr. Temo Mckeon MANUAL DIFF REQ NO Normal [facility] Comment on above: Performed By: #### C BC #### [facility] [address] [place] [address] Dr. Temo Mckeon MCH (RBC) [Entitic mass] 31.1 pg Normal 25.9-34.0 [facility] Comment on above: Performed By: #### C BC #### [facility] [address] [place] [address] Dr. Temo Mckeon MCHC (RBC) [Mass/Vol] 33.0 g/dL Normal 29.9-35.2 [facility] Comment on above: Performed By: #### C BC #### [facility] [address] [place] [address] Dr. Temo Mckeon MCV (RBC) [Entitic vol] 94.4 fL Critically high 80.0-94.0 [facility] Comment on above: Performed By: #### C BC #### [facility] [address] [place] [address] Dr. Temo Mckeon MONO # 0.7 103/ul Normal 0.3-0.8 [facility] Comment on above: Performed By: #### C BC #### [facility] [address] [place] [address] Dr. Temo Mckeon Monocytes/100 WBC (Bld) 7.5 % Normal 1.7-12.0 [facility] Comment on above: Performed By: #### C BC #### [facility] [address] [place] [address] Dr. Temo Mckeon NEUT # 6.4 103/ul Normal 1.4-6.5 [facility] Comment on above: Performed By: #### C BC #### [facility] [address] [address] [address] Temo Mckeon Neutrophils/100 WBC (Bld) 68.9 % Normal 43.0-75.0 [facility] Comment on above: Performed By: #### C BC #### [facility] [address] [address] [address] Temo Mckeon Platelet mean volume (Bld) [Entitic vol] 10.2 fL Normal 9.5-13.5 [facility] Comment on above: Performed By: #### C BC #### [facility] [address] [address] [address] Temo Mckeon PLT 160 103/ul Normal 150-450 [facility] Comment on above: Performed By: #### C BC #### [facility] [address] [place] [address] Dr. Temo Mckeon RBC 4.11 106/ul Critically low 4.70-6.[address] [facility] Comment on above: Performed By: #### C BC #### [facility] [address] [address] [address] Temo Mckeon WBC 9.3 103/ul Normal 4.0-11.0 [facility] Comment on above: Performed By: #### C BC #### [facility] [address] [place] [address] Dr. Temo Mckeon Covid-19 PCR (CVDTB)on 08-08 SARS-CoV-2 (COVID-19) RNA PRADEEP+probe Ql (Unsp spec) Not detected Normal NOT DETECTED [facility] Comment on above: Result Comment: This test is not yet approved or cleared by the [place] FDA. When there are no FDA-approved or cleared tests available, and other criteria are met, FDA can make tests available under an emergency access mechanism called an Emergency Use Authorization (EUA). The EUA for this test is supported by the [employer] of Health and Human Service's (HHS's) declaration [...] SARS-CoV-2. Performed By: #### C BC #### [facility] [address] [place] [address] Dr. Temo Mckeon PROF CHEM 8 (BAS METB)on Anion gap [Moles/Vol] 12.4 mmol/L Normal [facility] Comment on above: Performed By: #### C BC #### [facility] [address] [place] [address] Dr. Temo Mckeon Calcium [Mass/Vol] 8.6 mg/dL Normal 8.5-10.1 [facility] Comment on above: Performed By: #### C BC #### [facility] [address] [place] [address] Dr. Temo Mckeon Chloride [Moles/Vol] 105 mmol/L Normal 98-107 [facility] Comment on above: Performed By: #### C BC #### [facility] [address] [place] [address] Dr. Temo Mckeon CO2 [Moles/Vol] 27.0 mmol/L Normal 22.0-30.0 [facility] Comment on above: Performed By: #### C BC #### [facility] [address] [place] [address] Dr. Temo Mckeon Creatinine [Mass/Vol] 1.57 mg/dL Critically high 0.66-1.25 [facility] Comment on above: Performed By: #### C BC #### [facility] [address] [place] [address] Dr. Temo Mckeon EGFR-AF CZECH 52 mL/min/1.73m2 Critically low >=60 [facility] Comment on above: Performed By: #### C BC #### [facility] [address] [address] [address] Temo Mckeon EGFR-NON AF CZECH 43 mL/min/1.73m2 Critically low >=60 [facility] Comment on above: Performed By: #### C BC #### [facility] [address] [address] [address] Temo Mckeon Glucose [Mass/Vol] 145 mg/dL Critically high 74-106 [facility] Comment on above: Performed By: #### C BC #### [facility] [address] [address] [address] Temo Mckeon Potassium [Moles/Vol] 4.4 mmol/L Normal 3.4-5.0 [facility] Comment on above: Performed By: #### C BC #### [facility] [address] [address] [address] Temo Mckeon Sodium [Moles/Vol] 140 mmol/L Normal 137-145 [facility] Comment on above: Performed By: #### C BC #### [facility] [address] [address] [address] Temo Mckeon Urea nitrogen [Mass/Vol] 32.0 mg/dL Critically high 7.0-18.0 [facility] Comment on above: Performed By: #### C BC #### [facility] [address] [address] [address] Temo Mckeon Urea nitrogen/Creatinine [Mass ratio] 20.4 mg/mg Normal [facility] Comment on above: Performed By: #### C BC #### [facility] [address] [address] [address] Temo Mckeon PROTIMEon 08-21-2021 INR Coag (PPP) [Relative time] 1.04 {INR} Normal [facility] Comment on above: Performed By: #### C BC #### [facility] [address] [address] [address] Temo Mckeon INR GUIDELINES SEE BELOW Normal [facility] Comment on above: Result Comment: APPLE RED INR: 2.0 - 3.0 CONDITIONS NOT LISTED BELOW 2.5 - 3.5 FOR PROSTHETIC HEART VALVE REPLACEMENT 2.5 - 3.5 RECURRENT THROMBOSIS Performed By: #### C BC #### [facility] [address] [place], [place] [address] Dr. Temo Mckeon PT Coag (PPP) [Time] 11.2 s Normal 9.0-11.6 [facility] Comment on above: Performed By: #### C BC #### [facility] [address] [place], [place] [address] Dr. Temo Mckeon PTTon 08-21-2021 aPTT Coag (Bld) [Time] 25.2 s Normal 22.3-36.2 [facility] Comment on above: Performed By: #### C BC #### [facility] [address] [address] [address] Temo Mckeon XR KUB 1 VIEWon [...] TANISHA MATOS Date: 2021-07-29 09:21 Normal [facility] Covid-19 PCR (CVDTB)on 04-10 SARS-CoV-2 (COVID-19) RNA PRADEEP+probe Ql (Unsp spec) Not detected Normal NOT DETECTED [facility] Comment on above: Result Comment: This test is not yet approved or cleared by the [place] FDA. When there are no FDA-approved or cleared tests available, and other criteria are met, FDA can make tests available under an emergency access mechanism called an Emergency Use Authorization (EUA). The EUA for this test is supported by the [place] of Health and Human Service's (HHS's) declaration [...] consistent with SARS-CoV-2. Performed By: #### C [facility] #### [facility] [address] [address] [address] angio chest PE protocolon 03-07-2021 CT angio chest PE protocol [facility] [place] [address] [place] [id number] Scan Report Signed Patient: Lenin Almanzar MR#: [id number] 71 : 1945 Acct:[id number] Age/Sex: 75 / M ADM Date: 03/07/21 Loc: CT Room: Type: [facility] Attending Dr: Erika Bender MD Ordering Provider: [...] Balwinder Zambrano M.D.03/07/2021 2:01 PM Dictation Location: [place] [address] Transcribed By: [facility] 03/07/21 1401 Dictated By: Balwinder Zambrano DO 03/07/21 1359 Signed By: 03/07/21 1401 Normal [facility] echo transthoracicon [facility] echo transthoracic [facility] [place] [address] [place], [place] [id number] Echocardiogram Signed Patient: Lenin Almanzar MR#: [id number] 71 : 1945 Acct:[id number] Age/Sex: 75 / M ADM Date: 03/07/21 Loc: CT Room: Type: [facility] Attending Dr: Erika Bender MD Ordering Provider: Erika Bender MD Date of Service: 03/07/21 [facility] tran[facility]: DYSPNEA Copies to: MD [facility]: 2.3 m2 BP: 174/95 [...] Thomas DO 03/07/21 135 Signed By: 03/07/211448 [facility] ISTAT XRay CREon 03-07-2021 Creatinine [Mass/Vol] 1.5 mg/dL High 0.6-1.3 [facility] Comment on above: Result Comment: ER/E SD physician is notified/shown all ISTAT results. Critical values may be confirmed by laboratory testing if deemed necessary by ER attending doctor. Performed By: #### I SCRE #### [facility] [address] [place] [address] Point of Care testing , ISTAT GFR ( 55 [facility] Comment on above: Result Comment: GFR estimated reference range: According to KDOQI guidelines, <60 ml/min/1.73m2 is sufficient to diagnose a patient with chronic kidney disease. PERFORMED BY: [place] [address] PATHOLOGIST [employer] POOJA MYERS M.D. Performed By: #### I SCRE #### [facility] [address] [place] [address] Point of Care testing , ISTAT GFR (Non- Am 46 [facility] Comment on above: Performed By: #### I SCRE #### [address] Point of Care testing , Vital Signs Date Time Vital Sign Value Performing Clinician Facility 02-01-2023 09:30-0400 Body height 162.56 cm Leo Ball Other [facility] Other 02-01-2023 09:30-0400 Body mass index (BMI) [Ratio] 49.6 kg/m2 Leo Ball Other [facility] Other 02-01-2023 09:30-0400 Body weight 131.09 kg Leo Ball Other [facility] Other 02-01-2023 09:30-0400 Diastolic blood pressure 83 mm[Hg] Leo Ball Other [facility] Other 02-01-2023 09:30-0400 Respiratory rate 20 /min Leo Ball Other [facility] Other 02-01-2023 09:30-0400 SaO2% (BldA) [Mass fraction] 97 % Leo Ball Other [facility] Other 02-01-2023 09:30-0400 Systolic blood pressure 147 mm[Hg] Leo Ball Other [facility] Other 10-30-2022 09:00-0400 Body height 162.56 cm Leo Ball Other [facility] Other 10-30-2022 09:00-0400 Body mass index (BMI) [Ratio] 50.67 kg/m2 Leo Ball Other [facility] Other 10-30-2022 09:00-0400 Body weight 133.9 kg Leo Ball Other [facility] Other 10-30-2022 09:00-0400 Diastolic blood pressure 68 mm[Hg] Leo Ball Other [facility] Other 10-30-2022 09:00-0400 Respiratory rate 20 /min Leo Ball Other [facility] Other 10-30-2022 09:00-0400 SaO2% (BldA) [Mass fraction] 98 % Leo Ball Other [facility] Other 10-30-2022 09:00-0400 Systolic blood pressure 121 mm[Hg] Leo Ball Other [facility] Other 08-24-2022 10:32-0400 Blood Pressure Location Demetri ESTRELLA [facility] 08-24-2022 10:32-0400 Diastolic blood pressure 73 mm[Hg] Demetri ESTRELLA [facility] 08-24-2022 10:32-0400 Heart rate 59 /min Demetri ESTRELLA [facility] 08-24-2022 10:32-0400 Respiratory rate 16 /min Demetri ESTRELLA [facility] 08-24-2022 10:32-0400 Systolic blood pressure 125 mm[Hg] Demetri ESTRELLA [facility] 06-30-2022 09:00-0500 Body height 162.56 cm Leo Ball Other [facility] Other 06-30-2022 09:00-0500 Body mass index (BMI) [Ratio] 51.52 kg/m2 Leo Ball Other [facility] Other 06-30-2022 09:00-0500 Body weight 136.17 kg Leo Ball Other [facility] Other 06-30-2022 09:00-0500 Diastolic blood pressure 84 mm[Hg] Leo Ball Other [facility] Other 06-30-2022 09:00-0500 Respiratory rate 20 /min Leo Ball Other [facility] Other 06-30-2022 09:00-0500 Systolic blood pressure 128 mm[Hg] Leo Ball Other [facility] Other 02-23-2022 11:07-0400 Blood Pressure Location Demetri ESTRELLA [facility] 02-23-2022 11:07-0400 Diastolic blood pressure 74 mm[Hg] Demetri ESTRELLA [facility] 02-23-2022 11:07-0400 Heart rate 76 /min Demetri ESTRELLA [facility] 02-23-2022 11:07-0400 Respiratory rate 16 /min Demetri ESTRELLA [facility] 02-23-2022 11:07-0400 Systolic blood pressure 128 mm[Hg] Demetri ESTRELLA [facility] 08-04-2021 08:51-0400 Blood Pressure Location Demetri ESTRELLA [facility] 08-04-2021 08:51-0400 Diastolic blood pressure 72 mm[Hg] Demetri ESTRELLA [facility] 08-04-2021 08:51-0400 Heart rate 63 /min Demetri ESTRELLA [facility] 08-04-2021 08:51-0400 Respiratory rate 16 /min Demetri ESTRELLA [facility] 08-04-2021 08:51-0400 Systolic blood pressure 121 mm[Hg] Demetri ESTRELLA [facility] 04-01-2021 12:45-0500 Body height 162.56 cm Erika Bender Other [facility] Other 04-01-2021 12:45-0500 Body mass index (BMI) [Ratio] 51.15 kg/m2 Erika Bender Other [facility] Other 04-01-2021 12:45-0500 Body temperature 97.6 [degF] Erika Bender Other [facility] Other 04-01-2021 12:45-0500 Body weight 135.17 kg Erika Bender Other [facility] Other 04-01-2021 12:45-0500 Diastolic blood pressure 68 mm[Hg] Erika Bender Other [facility] Other 04-01-2021 12:45-0500 Respiratory rate 20 /min Erika Bender Other [facility] Other 04-01-2021 12:45-0500 SaO2% (BldA) [Mass fraction] 97 % Erika Bender Other [facility] Other 04-01-2021 12:45-0500 Systolic blood pressure 140 mm[Hg] Erika Avilaban Other [facility] Other 03-04-2021 16:15-0400 Body height 162.56 cm Erika Bender Other [facility] Other 03-04-2021 16:15-0400 Body mass index (BMI) [Ratio] 51.15 kg/m2 Erika Bedner Other [facility] Other 03-04-2021 16:15-0400 Body temperature 98.3 [degF] Erika Bender Other [facility] Other 03-04-2021 16:15-0400 Body weight 135.17 kg Erika Bender Other [facility] Other 03-04-2021 16:15-0400 Diastolic blood pressure 68 mm[Hg] Erika Avilaban Other [facility] Other 03-04-2021 16:15-0400 Respiratory rate 20 /min Erika Avilaban Other [facility] Other 03-04-2021 16:15-0400 SaO2% (BldA) [Mass fraction] 97 % Erika Bender Other [facility] Other 03-04-2021 16:15-0400 Systolic blood pressure 148 mm[Hg] Erika Avilaban Other [facility] Other Encounters Encounter Date Encounter Type Care [...] encounter procedure Orquidea Huston [facility] Start: 07-05-2023 End: 07-06-2023 ambulatory Mary Ann Villalobos MD [facility] Start: 06-21-2023 End: 06-22-2023 ambulatory Mary Ann Villalobos MD [facility] Start: 05-20-2023 End: 05-20-2023 ambulatory CLAUDETTE RICHARDSON Not Available Start: 03-08-2023 End: 03-09-2023 ambulatory Mary Ann Villalobos MD [facility] Start: 02-08-2023 End: 02-09-2023 ambulatory Mary Ann Villalobos MD [facility] Start: 02-01-2023 End: 02-01-2023 ambulatory Leo Garcias Other [facility] Other Start: 02-01-2023 Office outpatient vi sit [address] [facility] Start: 01-27-2023 End: 01-27-2023 ambulatory E[facility] Start: 01-13-2023 End: 01-13-2023 ambulatory Leo Garcias Other [facility] Other Start: 01-13-2023 Telephone encounter Leo [facility]ESS [facility] Start: 11-09-2022 End: 11-09-2022 ambulatory Leo Garcias Other [facility] Other Start: 11-09-2022 Telephone encounter [facility] Start: 10-30-2022 End: 10-30-2022 ambulatory Leo Garcias Other [facility] Other Start: 10-30-2022 Patient encounter procedure Leo Garcias [facility] Start: 08-24-2022 End: 08-24-2022 Patient encounter procedure Demetri ESTRELLA [facility] Start: 07-08-2022 End: 07-08-2022 ambulatory Leo Garcias Other [facility] Other Start: 07-08-2022 Telephone encounter [facility] Start: 06-30-2022 End: 06-30-2022 ambulatory Leo Garcias Other [facility] Other Start: 06-30-2022 Office outpatient vi sit 25 minutes Leo Garcias [facility] Start: 02-23-2022 End: 02-23-2022 Patient encounter procedure Demetri ESTRELLA [facility] [employer] Start: 02-17-2022 End: 02-18-[address] LEO GARCIAS Facility:[facility] Start: 10-29-2021 End: 10-30-[address] LEO GARCIAS Facility:[facility] Start: 10-22-2021 Adult health examination Louis blessing Garcias Other [facility] Other Start: 08-28-2021 End: 08-28-[address] DEMETRI ESTRELLA Facility:[facility] Start: 08-25-2021 Encounter for preprocedural cardiovascular examination DR DEMETRI ESTRELLA [facility] Start: 08-25-2021 Encounter for preprocedural laboratory examination DR DEMETRI ESTRELLA [facility] Start: 08-25-[address] DEMETRI ESTRELLA [facility] ity:[facility] Start: 08-21-2021 End: 08-22-[address] DEMETRI ESTRELLA Facility:[facility] Start: 08-21-2021 End: 08-22-2021 Encounter for preprocedural cardiovascular examination DR DEMETRI ESTRELLA Facility:[facility] Start: 08-04-2021 End: 08-04-2021 Patient encounter procedure Demetri ESTRELLA [facility] Start: 07-29-2021 End: 07-30-[address] DEMETRI ESTRELLA Facility:[facility] Start: 05-05-2021 End: 05-05-[address] LEO GARCIAS Facility:[facility] Start: 04-01-2021 End: 04-01-2021 ambulatory Kamal Chaban Other [facility] Other Start: 04-01-2021 Office outpatient vi sit 15 minutes Kamal Chaban [facility] Start: 03-04-2021 Office outpatient ne w 45 minutes Kamal Chaban [facility] Start: 08-28-2019 Preoperative cardiovascular examination Leo Garcias Other [facility] Other Start: 07-06-2018 End: 07-07-2018 Patient encounter procedure DEFAULT PHYSICIAN Facility:[facility] Start: 07-04-2018 End: 07-05-2018 Patient encounter procedure DEFAULT PHYSICIAN Facility:[facility] Start: 07-01-2018 End: 07-02-2018 Patient encounter procedure DEFAULT PHYSICIAN Facility:[facility] Procedures Date Procedure Procedure Detail Performing Clinician Start: 10-29-[address] BETZY GARCIAS Comment on above: Performed By: #### C BC #### [facility] [address] [place] [address] Dr. Temo Mckeon Start: 08-28-2021 Extracorporeal shock [...] high dose seasonal, preservative-free Leo Garcias Other [facility] Other 03-23-2022 COVID-19 Pfizer (bivalent) Leo Garcias Other [facility] Other 02-24-2022 influenza virus vaccine, split virus (incl. purified surface antigen) Leo Garcias Other [facility] Other 02-24-2022 influenza, high dose seasonal, preservative-free Leo Garcias Other [facility] Other 03-26-2021 SARS-CoV-2 (COVID-19 ) mRNA BNT-162b2 vax Demetri ESTRELLA [facility] Comment on above: Result Comment: 2021: [id number] 02-21-2021 influenza virus vaccine, split virus (incl. purified surface antigen) Leo Garcias Other [facility] Other 02-07-2021 influenza virus vaccine, unspecified formulation Demetri ESTRELLA [facility] 07-30-2020 COVID-19 Vaccine Pfi zer - Documentation Purposes Only Erika Bender Other [facility] 07-08-2020 COVID-19 Vaccine Pfi zer - Documentation Purposes Only Erika Bender Other [facility] 05-10-2020 SARS-CoV-2 (COVID-19 ) mRNA BNT-162b2 vax Demetri ESTRELLA [facility] Comment on above: Result Comment: pt h as had 3 shots to date 02-29-2020 influenza virus vaccine, split virus (incl. purified surface antigen) Leo Garcias Other [facility] Other 02-16-2019 influenza virus vaccine, split virus (incl. purified surface antigen) Leo Garcias Other [facility] Other 01-24-2018 influenza virus vaccine, split virus (incl. purified surface antigen) Leo Garcias Other [facility] Other 01-24-2018 influenza virus vaccine, unspecified formulation Demetri ESTRELLA [facility] 01-24-2018 pneumococcal Conjuga te, unspecified formulation; Translations: [Need for prophylactic vaccination against Streptococcus pneumoniae (pneumococcus)] Leo Garcias Other [facility] Other 01-24-2018 pneumococcal polysaccharide vaccine, 23 valent Demetri ESTRELLA [facility] 02-18-2017 influenza virus vaccine, split virus (incl. purified surface antigen) Leo Garcias Other [facility] Other 02-18-2017 influenza virus vaccine, unspecified formulation Demetri ESTRELLA [facility] 02-12-2016 influenza virus vaccine, split virus (incl. purified surface antigen) Leo Garcias Other [facility] Other 02-12-2016 influenza virus vaccine, unspecified formulation Demetri ESTRELLA [facility] 02-28-2015 tetanus and diphther ia toxoids, adsorbed, preservative free, for adult use (5 Lf of tetanus toxoid and 2 Lf of diphtheria toxoid) Leo Garcias Other [facility] Other 02-28-2015 pneumococcal conjuga te vaccine, 13 valent Leo Garcias Other [facility] Other 02-16-2014 tetanus and diphther ia toxoids, adsorbed, preservative free, for adult use (5 Lf of tetanus toxoid and 2 Lf of diphtheria toxoid) Leo Garcias Other [facility] Other 02-08-2013 tetanus and diphther ia toxoids, adsorbed, preservative free, for adult use (5 Lf of tetanus toxoid and 2 Lf of diphtheria toxoid) Leo Garcias Other [facility] Other 02-17-2012 tetanus and diphther ia toxoids, adsorbed, preservative free, for adult use (5 Lf of tetanus toxoid and 2 Lf of diphtheria toxoid) Leo Garcias Other [facility] Other 02-13-2009 pneumococcal polysaccharide vaccine, 23 valent Leo Garcias Other [facility] Other 10-17-2003 Td(adult) unspecifie d formulation Demetri ESTRELLA [facility] Payers Date Payer Category Payer Medicare 2022 Private Health Insurance 1958 Medicare [id number] 2.1 [id number] 1959 Private Health Insurance [id number] 1945 Unknown [id number] 2.16.8 40.1.682657.3.579.2.647 1945 Unknown [id number] 2.16.8 40.1.966263.3.579.2.647 1945 Unknown [id number] 2.16.8 40.1.644924.3.579.2.647 1946 Unknown [id number] 2.16.84 0.1.275677.3.579.2.593 1946 Unknown [id number] 2.16.84 0.1.783140.3.579.2.593 1946 Unknown [id number] 2.16.84 0.1.066626.3.579.2.593 1946 Unknown [id number] 2.16.84 0.1.113017.3.579.2.593 1946 Unknown [id number] 2.16.84 0.1.364621.3.579.2.593 1946 Unknown [id number] 2.16.84 0.1.459051.3.579.2.593 1946 Unknown [id number] 2.16.84 0.1.965488.3.579.2.593 1946 Unknown [id number] 2.16.84 0.1.972073.3.579.2.593 1946 Unknown [id number] 2.16.8 40.1.515193.3.579.2.727 1946 Unknown [id number] 2.16. 840.1.859009.3.579.2.196 1946 Unknown [id number] 2.16. 840.1.652362.3.579.2.196 1946 Unknown [id number] 2.16. 840.1.164758.3.579.2.196 1946 Unknown [id number] 2.16. 840.1.891743.3.579.2.196 1946 Unknown [id number] 2.16. 840.1.399915.3.579.2.196 1946 Unknown [id number] 2.16. 840.1.616782.3.579.2.196 1946 Unknown [id number] 2.16.84 0.1.467225.3.579.2.1259 1946 Unknown [id number] 2.16.84 0.1.889446.3.579.2.1259 1946 Unknown [id number] 2.16.84 0.1.210503.3.579.2.1259 1946 Unknown [id number] 2.16.84 0.1.070317.3.579.2.1259 1946 Unknown [id number] 2.16.84 0.1.284245.3.579.2.1259 Unknown Social History Date Type Detail Facility Start: 01-30-2021 End: 08-31-2023 Tobacco smoking status Never smoked tobacco (finding) [facility] Other Sex Assigned At Male [facility] Other Tobacco smoking status Never [facility] Functional Status Date Assessment Result Facility 08-31-2023 Functional Status N/A [facility] 08-24-2022 Functional Status N/A [facility] 02-23-2022 Functional Status N/A [facility] Clinical Notes 12-09-2020 to 08-31-2023 Note Date [...] urethra. Follow these instructions at home: Take cvny-gpr-vbdummm and prescription medicines only as told by [...] provider. Document Revised: 11/12/2021 Document Reviewed: 11/12/2021 [employer] Patient Education 2022 [employer] 08/31/2023 09:07:49 Urinary Incontinence Urinary Incontinence Urinary [...] nerve stimulation). ?For women, using a medical office worker to prevent urine leaks. This is a [...] right after experiencing incontinence. General instructions Take bhcg-drv-ayemyoh and prescription medicines only as told by [...] important. Where to find more information National [place] of Diabetes and Digestive and Kidney Diseases: www.niddk.nih.gov [employer] [employer]: www.urologyhealth.org Contact a health care [...] provider. Document Revised: 11/29/2020 Document Reviewed: 11/29/2020 [employer] Patient Education 2022 [employer] Follow Up Care 08/24/2022 11:22:07 With:ISAAC Huston APRN, [facility], FAM, URL Address: When: Unknown Comments:1 year with KUB With:SAMEER MONTIEL, Demetri Sequeira, URL Address: [facility] [address] , [place] [phone] When: Unknown [facility] 02-01-2023 Evaluation note Encounter Date Diagnosis Assessment [...] use, the patient reduces the risk for IN, CVA, HTN, cardiac dysrhythmias and sudden cardiac [...] in remission (ICD-10 - F17.211) Continue abstinence [facility] Other 09-[facility] Chief Complaint: Patient [...] should problems arise Shalonda Rai MD, MPH, [facility], [facility], [facility] Interventional Cardiology Pager Email: [email or web address]09-06-2023 Evaluation note* Encounter Date Diagnosis Assessment Notes Treatment Notes Treatment Clinical Notes Jan, Lumbosacral spondylosis with radiculopathy (ICD-10 - M47.27) [facility] Other 06-23-2023 Evaluation note* Encounter Date Diagnosis [...] use, the patient reduces the risk for IN, CVA, HTN, cardiac dysrhythmias and sudden cardiac [...] High risk medication use (ICD-10 - Z79.899) [facility] Other 04-17-2023 Hospital Discharge instructions Patient Education [...] urethra. Follow these instructions at home: Take vxor-pom-prcyuzv and prescription medicines only as told by [...] 04/26/2006 Document Revised: 03/21/2019 Document Reviewed: 05/31/2017 [employer] Patient Education 2019 [employer] 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 Follow Up Care 08/28/2021 11:53:17 With:SAMEER MONTIEL, Demetri Sequeira, URL Address: [facility] [address] , [place] [address]- [phone] When:08/24/2022 [facility] 03-28-2022 Hospital Discharge instructions Patient Education [...] Follow these instructions at home: Medicines Take ecrd-xzz-xujrlhw and prescription medicines only as told by [...] 05/15/2008 Document Revised: 08/07/2019 Document Reviewed: 03/17/2017 [employer] Patient Education 2020 [employer] 08/04/2021 09:25:02 Calorie Counting for Weight Loss [...] 04/26/2006 Document Revised: 01/13/2019 Document Reviewed: 03/26/2017 [employer] Patient Education 2020 [employer] 08/04/2021 09:24:51 Benign Prostatic Hyperplasia Benign Prostatic [...] urethra. Follow these instructions at home: Take qbml-ddj-tlclnhh and prescription medicines only as told by [...] 04/26/2006 Document Revised: 03/21/2019 Document Reviewed: 05/31/2017 [employer] Patient Education 2020 [employer] Follow Up Care 01/30/2021 10:09:00 With:SAMEER MONTIEL, Demetri Sequeira, URL Address: [facility] [address] , [place] [address]- [phone] When: Unknown Comments:Will schedule RT ESWLF/u in 3-4 month due to new medication [facility] 11-23-2021 Evaluation note* Encounter Date Diagnosis Assessment Notes Treatment Notes Treatment Clinical Notes Mar, Dyspnea on exertion (ICD-10 - R06.00) Mar, Leg edema (ICD-10 - R60.0) [facility] Other 10-26-2021 Evaluation note* Encounter Date Diagnosis Assessment Notes Treatment Notes Treatment Clinical Notes Feb, Dyspnea on exertion (ICD-10 - R06.00) Feb, Leg edema (ICD-10 - R60.0) [facility] Other 08-02-2021 NoteHNO ID: [id number] Author: Amara Esqueda MD Service: ? Author [...] its relevant components. Amara Esqueda MD [facility] App[facility]ments Appointment Date:11/07/2021 09:30:00 AM Scheduled Provider:Demetri ESTRELLA MD Location:[facility] Appointment Type:URO Office Visit [facility] Evaluation + Plan note Future Appointments Appointment Date:08/24/2022 10:30:00 AM Scheduled Provider:Demetri ESTRELLA MD Location:[facility] Appointment Type:URO Office Visit [facility] evaluation + Plan note Future Appointments Appointment Date:03/01/2023 09:15:00 AM Scheduled Provider:Demetri ESTRELLA MD Location:[facility] Appointment Type:URO Office Visit [facility] evaluation noteNo InformationNoPolaris Design Systems Other History general Narrative - Reported* Type Description Date Medical History ADITHYA Medical History hypertension Medical History heart disease Surgical History bypass triple Surgical History 2 knee replacements Surgical History hiatal hernia Surgical History cataract x 2 Hospitalization History as above [facility] Other [facility] general Narrative - Reported* Type Description Date [...] OF KIDNEY STONE Hospitalization History as above [facility] Other Hospital course Narrative No data available for this section [facility] [employer] progress note No data available for this section [facility] [employer] Summary Purpose Family History No Family History [...] 1 Lumbar spondylosis ( M47.816) Referral Organization [facility] Dieter Mireles C yashira Referring Provider First Name Leo Referring Provider Last Name Dieter Referring Provider Specialty Internal Me dicine Referred Organization [facility] Referred Provider Samantha Contreras Referred Address [address], [place],[address] Referred Provider Specialty Pain Medicin e Referral [...] section and content) DATE CREATED AUTHOR 07/07/2018 [facility] DATE CREATED AUTHOR AUTHOR'S ORGANIZ ATION 12/09/2020 [facility] DATE CREATED AUTHOR AUTHOR'S ORGANIZ ATION 03/10/2021 [facility] DATE CREATED AUTHOR AUTHOR'S ORGANIZ ATION 03/01/2022 [facility] DATE CREATED AUTHOR AUTHOR'S ORGANIZ ATION 01/29/2023 [facility] DATE CREATED AUTHOR AUTHOR'S ORGANIZ ATION 09/01/2023 [facility] DATE CREATED AUTHOR AUTHOR'S ORGANIZ ATION 09/23/2023 [facility] DATE CREATED AUTHOR AUTHOR'S ORGANIZ ATION 01/06/2024 [facility] EPIC REASON FOR VISIT (unrecogniz ed section and content) Ref by Dr. Garcias for Dyspnea on exertion4 wk f/u MONTES, Leg Edema4 MONTH FOLLOW UPNo InformationCOMMUNITY HEALTH SYSTEMSlab resultsWELLCOLORADO MENTAL HEALTH INSTITUTE AT PUEBLONo Information3 month Follow up Patient Care team reji n (unrecognized section and content) Personnel Name: LEO GARCIAS DO Address: Address: [address] [facility], [address] Personnel Name: LEO GARCIAS DO Address: Address: [address] [facility] [address] Personnel Name: LEO GARCIAS DO Address: Address: [address] [place] [address] FOR RECORDS PERTAINING TO PATIENTS WHO [...] BE BASED ON THE PRIMARY CLINICAL RECORDS. [employer] [facility]. provides no warranty or guarantee of the accuracy or completeness of information in this document.
[2024-01-31 10:19] LABS: Basophils Absolute Auto 0.1 10^3/uL (0.0-0.1); Basophils Percent Auto 0.5 % (0.2-2.0); Eosinophils Absolute Auto 0.3 10^3/uL (0.0-0.7); Eosinophils Percent Auto 2.3 % (0.9-7.0); Hematocrit 39.5 % (42.0-54.0); Hemoglobin 13.1 g/dL (14.0-18.0); Immature Granulocytes Abs Auto 0.06 10^3/uL (0.00-0.03); Immature Granulocytes Pct Auto 0.6 % (0.0-0.5); Lymphocytes Percent Auto 18.8 % (20.5-60.0); Mean Corpuscular HGB Conc 33.2 g/dL (29.9-35.2); Mean Corpuscular Hemoglobin 31.2 pg (25.9-34.0); Mean Platelet Volume 10.9 fL (9.5-13.5); Monocytes Absolute Auto 0.7 10^3/uL (0.3-0.8); Monocytes Percent Auto 6.7 % (1.7-12.0); Neutrophils Absolute Auto 7.7 10^3/uL (1.4-6.5); Neutrophils Percent Auto 71.1 % (43.0-75.0); Platelet Count 194 10^3/uL (150-450); Red Cell Distribution Width 13.6 % (11.0-15.0); White Blood Count 10.8 10^3/uL (4.0-11.0)
[2024-01-31 10:27] LABS: Estimated Average Glucose 134 mg/dL; Glycohemoglobin A1C 6.3 % (4.5-6.2)
[2024-01-31 10:42] LABS: Anion Gap 12.5; BUN Creatinine Ratio 19.9; Calcium 9.1 mg/dL (8.5-10.1); Chloride 105 mmol/L (98-107); Estimated GFR (African America 49 (>=60); Estimated GFR (Non-African Ame 40 (>=60); Glucose 145 mg/dL (74-106); Potassium 4.5 mmol/L (3.5-5.1); Sodium 139 mmol/L (136-145)
[2024-01-31 11:11] LABS: Percent Iron Saturation 23.6 %
[2024-02-01 11:12] LABS: Vitamin B12 636 pg/mL (232-1245)
== END 2024-01-31 09:50 | disposition home or self-care (01) ==
LOC: LAB 09:51
PROVIDERS: PCP Internal Medicine; Visit Provider Internal Medicine
DX: D64.9 Anemia, unspecified (principal); E11.65 Type 2 diabetes mellitus with hyperglycemia; N18.9 Chronic kidney disease, unspecified; E11.22 Type 2 diabetes mellitus with diabetic chronic kidney disease
CPT/HCPCS: 36415; 80048; 82607; 82728; 82746; 83036; 83540; 83550; 85025

== ENCOUNTER 2024-02-04 08:45 | Outpatient (OUT) | payer MEDICARE, OTHER, SELFPAY ==
--- NOTE | 2024-02-04 09:00 | CA_ITS ---
Patient Name: LENIN LAM MR#: [id number] : 1945 Exam Date: 02/04/2024 Ordering Doctor: DR SHALONDA RAI M.D. ECHOCARDIOGRAM REPORT PROCEDURE: CA ECHO DOPPLER COMPLETE INDICATIONS: Dyspnea, CABGx3, cardiac stent, hypertension COMPARISON: None. DESCRIPTION: COMPLETE ECHOCARDIOGRAM Real-time transthoracic echocardiography with 2D, M-mode, spectral and color flow Doppler performed. QUALITY: Technical quality was good. LEFT VENTRICLE: Normal chamber size. Moderate left ventricular hypertrophy. LV EF: Global left ventricular systolic function is hyperdynamic; visually estimated ejection fraction is 65 to 70%. No significant wall motion abnormalities. DIASTOLIC: Diastolic function is indeterminate. ATRIAL SEPTUM: Visually appears intact. LEFT ATRIUM: Mild dilatation. RIGHT ATRIUM: Mild dilatation. RIGHT VENTRICLE: Normal chamber size. Normal right ventricular systolic function. TRICUSPID VALVE: Normal mobility and thickness. No stenosis with trivial regurgitation. Doppler studies reveal mildly (35-45) elevated right sided pressures. RVSP 35 mmHg MITRAL VALVE: Normal mobility and thickness. No evidence of mitral valve stenosis. There is no mitral annular calcification. Trivial mitral regurgitation. AORTIC VALVE: Normal trileaflet appearance. No visible sclerosis. Normal leaflet mobility. No evidence of aortic valve stenosis. Trivial aortic regurgitation. AORTIC ROOT: Normal diameter and appearance. Ascending aorta is normal in size. PULMONIC VALVE: Normal thickness and mobility. No stenosis. Mild regurgitation. PERICARDIUM: No evidence of pericardial effusion. IVC: Collapses with inspirations. IVC is normal in size. CONCLUSION: 1. Global left ventricular systolic function is hyperdynamic; visually estimated ejection fraction is 65 to 70% 2. Normal right ventricular size and systolic function 3. Moderate left ventricular hypertrophy 4. Biatrial dilatation 5. Mildly elevated right ventricular systolic pressure; RVSP 35 mmHg 6. Mild pulmonic regurgitation Adult Echocardiography Procedure Report Left Ventricle LVEDD (3.7 - 5.6 cm): 5.08 cm LVESD (2.2 - 4.0 cm): 2.99 cm LVIVS thickness (0.6 - 1.2 cm): 1.36 cm LVPW thickness (0.5 - 1.0 cm): 1.21 cm e': 0.11 m/s E - e': 4.75 LVOT Max Gradient: 2.03 mm[Hg] LVOT Area (cm2): 0.71 m/s Peak Velocity (LVOT): 0.71 m/s Mean Velocity (LVOT): 0.44 m/s LVOT Diameter 2.55 cm Left Atrium LA Volume Index (2D A2C): 40.20 ml/m2 Left Atrium Systolic Dimension: 4.28 cm Mitral Valve MV E to A Ratio: 0.95 Mitral Valve A-Wave Peak Velocity: 0.57 m/s Mitral Valve E-Wave Peak Velocity: 0.54 m/s Right Ventricle Aorta AO Root Diam: 4.06 cm Ascending Ao Diam: 3.24 cm Aortic Valve AoV Area (Peak Neil): 3.27 cm2, 3.27 cm2 AoV Area (VTI): 3.70 cm2, 3.70 cm2 Peak Velocity(Antegrade Flow): 1.11 m/s Peak Gradient(Antegrade Flow): 4.97 mm[Hg] Mean Velocity(Antegrade Flow): 0.73 m/s Mean Gradient(Antegrade Flow): 2.47 mm[Hg] Velocity Time Integral: 23.10 cm Tricuspid Valve Peak Velocity (Regurgitant Flow): 2.83 m/s Pulmonic Valve Mean Gradient: 3.03 mm[Hg] Mean Velocity: 0.81 m/s Peak Velocity: 1.33 m/s, 1.16 m/s Peak Gradient: 7.04 mm[Hg], 5.35 mm[Hg] Right Atrium Right Atrium Systolic Pressure: 49.07 ml, 49.07 ml Dictated by: Shalonda Rai M.D. on 02/04/2024 at 16:11 Approved by: Shalonda Rai M.D. on 02/04/2024 at 16:16
--- OUTSIDE RECORDS SUMMARY | 2024-02-04 09:01 | XMS_ITS | CCD ---
Author Organization [facility] Care Team Providers Care Tester Compressed Gases Name Role Phone PHYSICIAN, DEFAULT Admitting Unavailable PHYSICIAN, DEFAULT Attending Unavailable DIETER, LEO Primary Care Unavailable PHYSICIAN, DEFAULT Admitting Unavailable PHYSICIAN, DEFAULT Attending Unavailable DIETER, LEO Primary Care Unavailable PHYSICIAN, DEFAULT Admitting Unavailable PHYSICIAN, DEFAULT Attending Unavailable LEO GARCIAS Primary Care Unavailable LEO GARCIAS Primary Care Physician [phone] Erika Bender Unavailable DIETER, DR VAZQUEZ Primary Care Unavailable SAMEER, DR FOX Admitting Unavailable ESTRELLA, DR FOX Attending Unavailable ESTRELLA, DR FOX Consulting Unavailable BALL, DR VAZQUEZ Admitting Unavailable BALL, DR VAZQUEZ Attending Unavailable BALL, DR VAZQUEZ Primary Care Unavailable DIETER, DR VAZQUEZ Consulting Unavailable ESTRELLA, DR FOX Admitting Unavailable ESTRELLA, DR FOX Attending Unavailable BALL, DR VAZQUEZ Primary Care Unavailable ESTRELLA, DR FOX Consulting Unavailable WEST, DR TANISHA Deleon Consulting Unavailable DIETER, DR VAZQUEZ Admitting Unavailable BALL, DR VAZQUEZ Attending Unavailable BALL, DR VAZQUEZ Primary Care Unavailable BALL, DR VAZQUEZ Consulting Unavailable BALL, DR VAZQUEZ Admitting Unavailable BALL, DR VAZQUEZ Attending Unavailable BALL, DR VAZQUEZ Primary Care Unavailable BALL, DR VAZQUEZ Consulting Unavailable CHRISTENSEN, WINMADELINE Consulting Unavailable ESTRELLA, DR FOX Admitting Unavailable ESTRELLA, DR FOX Attending Unavailable BALL, DR VAZQUEZ Primary Care Unavailable ESTRELLA, DR FOX Consulting Unavailable ESTRELLA, DR FOX Admitting Unavailable ESTRELLA, DR FOX Attending Unavailable BALL, DR VAZQUEZ Primary Care Unavailable ESTRELLA, DR FOX Consulting Unavailable ZA, ACNDICE Consulting Unavailable AFSHAN GTZ Consulting Unavaila ble SAMEER, DR FOX Admitting Unavailable SAMEER, DR FOX Attending Unavailable BALL, DR VAZQUEZ Primary Care Unavailable Dieter, Leo Unavailable Orquidea Huston Attending Unavailable Wilfredo MONTIEL, [...] [place] Attending Unavailable RUI [place] Attending Unavailable SHALONDA RAI Attending Unavailable Allergies Allergy Classification Reported Allergen(s) Allergy Type Date of Onset Reaction(s) Facility (1 source) 39744,00; Translations: [70956,00] Propensity to adverse reactions (disorder) 9 [facility] Repository (2 sources) patient allergy list reviewed by nurse or physicia Propensity to adverse reactions Comment:Done [employer] Other (1 source) No Known Medication Allergies; Translations: [No Known Medication Allergies] Propensity to adverse reactions (disorder) [facility] Repository Medications Current Medications Medication Drug [...] Daily, # 90 tab(s), Refills(s) 3, Pharmacy: [facility]/pharmacy #[id number], 164, cm, 08/24/22 10:54:00 [...] Daily, # 90 tab(s), Refills(s) 3, Pharmacy: [facility]/pharmacy #[id number], 164, cm, 08/24/22 10:54:00 [...] Daily, # 30 tab(s), Refills(s) 11, Pharmacy: [facility]/pharmacy #[id number], 164, cm, 08/04/21 8:56:00 EDT, Height/Length Dosing, 139, kg, 08/04/21 8:56:00 EDT, Weight Dosing Start Date: 08/04/21 Status: Ordered tamsulosin hydrochloride 0.4 mg oral capsule (13 sources) alpha-Adrenergic Remy Start: 07-12-2023 take 1 capsule by mouth twice daily tamsulosin 0.4 mg Cap 0.4 mg = 1 cap(s), Oral, BID, # 180 cap(s), Refills(s) 3, Pharmacy: [facility]/pharmacy #[id number], 164, cm, 08/24/22 10:54:00 EDT, Height/Length Dosing, 138, kg, 08/24/22 10:54:00 EDT, Weight Dosing Start Date: 07/12/23 Status: Ordered Start: 06-26-2022 take 1 capsule by mo [facility] twice daily tamsulosin 0.4 mg Cap 0.4 mg = 1 cap(s), Oral, BID, # 180 cap(s), Refills(s) 3, Pharmacy: [facility]/pharmacy #[id number], 164, cm, 02/23/22 11:10:00 EDT, Height/Length Dosing, 139, kg, 02/23/22 11:10:00 EDT, Weight Dosing Start Date: 06/26/22 Status: Ordered Start: 02-23-2022 End: 06-23-2022 take 1 capsule by mouth twice daily tamsulosin 0.4 mg Cap 0.4 mg = 1 cap(s), Oral, BID, X 30 day(s), # 60 cap(s), Refills(s) 3, Pharmacy: [facility]/pharmacy #[id number], 164, cm, 02/23/22 11:10:00 EDT, Height/Length Dosing, 139, kg, 02/23/22 11:10:00 EDT, Weight Dosing Start Date: 02/23/22 Stop Date: 06/23/22 Status: Ordered Start: 11-22-2020 End: 11-17-2021 take 1 capsule by mouth twice daily Flomax 0.4 mg Cap 0.4 mg = 1 cap(s), Oral, BID, X 90 day(s), # 180 cap(s), Refills(s) 3, Pharmacy: [facility]/pharmacy #[id number], 164, cm, 07/26/20 9:40:00 EDT, Height/Length Dosing, 138.5, kg, 07/26/20 9:40:00 EDT, Weight Dosing Start Date: 11/22/20 Stop Date: 11/17/21 Status: Ordered take 1 capsule by [facility] every twenty-four hours Flomax 0.4 MG [...] Coronary arteriosclerosis; Translations: [Atherosclerotic heart disease of [place] coronary artery without angina pectoris] Chronic Deficiency and other anemia (9 sources) [...] Chronic Hypertension with complications and secondary hypertension (16 sources) Hypertensive chronic kidney disease with stage [...] single episode, unspecified] Onset: 08-25-2021 08-14-2021 Chronic Osteoarthritis (2 sources) Osteoarthritis; Translations: [Polyosteoarthritis, unspecified] Chronic Other aftercare (3 sources) 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; Translations: [OTH TRIMMER CLIMBER CURRENT DRUG THERAPY] Onset: 08-25-2021 Episodic Other aftercare (2 sources) Long-term current use of drug therapy; Translations: [Other residential (current) drug therapy] Episodic Other and ill-defined [...] Resolved: 01-08-2021 Episodic Other aftercare (1 source) [facility] (current) use of anticoagulants; Translations: [TRIMMER CLIMBER CURRNT USE ANTICOAGULANTS] Onset: 08-29-2021 Episodic Other aftercare (1 source) [employer] (current) use of antithrombotics/ant iplatelets; Translations: [TRIMMER CLIMBER ANTITHROMBOT/ANTIPL ATLETS] Onset: 08-25-2021 Episodic Other and [...] Value Interpretation Reference Range Facility Office Visiton 01-31-2024 Follow-up visit [id number] Ralph Lam 1945 M Date Provider Department Center 01/31/2024 Huy-SHALONDA RAI CARD [facility] No family history on file Level of Service:75200 LA OFFICE/OUTPATIENT ESTABLISHED MOD MDM 30 MIN Normal [facility] Patient Educationon 08-31-19 24 Patient Education Urology [...] Follow these instructions at home: ? Take [id number] and prescription medicines only as told by [...] (more content not included)... Normal [facility] Urology Office/Clinic Noteon 08-31-2023 Urology Office/Clinic [...] with voice recognition artificial intelligence software, specifically [employer], [employer] and or [employer]. Substitutions may have occurred due to the [...] Urnls Dip Stick Auto w/o Microscopy POC 95029 3. 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 Normal [facility] Comment on above: Result Comment: Elec tronically Signed By: ISAAC Huston APRN, Orquidea Blue\.edi\Date and Time Signed: 08/31/23 09:08 EDT RAD - MISCon 08-17-2023 RAD - MISC [id number] IFF Normal [facility] BNPon 02-17-2022 Natriuretic peptide B (Bld) [Mass/Vol] 330.0 pg/mL Normal <=1,800.0 The Comment on above: Performed By: #### B DIESEL PILE HAMMER OPERATOR, TSH, BMP #### Laboratory [address] [place] [address] Dr. Temo Mckeon CBC AUTO DIFFon 02-17-2022 BASO # 0.1 103/ul Normal 0.0-0.1 [facility] Comment on above: Performed By: #### C BC #### Laboratory [address] [place] [address] Dr. Temo Mckeon Basophils/100 WBC (Bld) 0.4 % Normal 0.2-2.0 [facility] Comment on above: Performed By: #### C BC #### Laboratory [address] [place] [address] Dr. Temo Mckeon EO # 0.3 103/ul Normal 0.0-0.7 The Comment on above: Performed By: #### C BC #### Laboratory [address] [place] [address] Dr. Temo Mckeon Eosinophils/100 WBC (Bld) 2.8 % Normal 0.9-7.0 [facility] Comment on above: Performed By: #### C BC #### Laboratory [address] [place] [address] Dr. Temo Mckeon Erythrocyte distribution width (RBC) [Ratio] 13.5 % Normal 11.0-15.0 [facility] Comment on above: Performed By: #### C BC #### Laboratory [address] [place] [address] Dr. Temo Mckeon Hematocrit (Bld) [Volume fraction] 38.5 % Critically low 42.0-54.0 [facility] Comment on above: Performed By: #### C BC #### Laboratory [address] [place] [address] Dr. Temo Mckeon Hemoglobin (Bld) [Mass/Vol] 12.5 g/dL Critically low 14.0-18.0 [facility] Comment on above: Performed By: #### C BC #### Laboratory [address] [place] [address] Dr. Temo Mckeon IG # 0.11 10e3/ul Critically high 0.00-0.03 [facility] Comment on above: Performed By: #### C BC #### Laboratory [address] [place] [address] Dr. Temo Mckeon IG % 0.9 % Critically high 0.0-0.5 [facility] Comment on above: Performed By: #### C BC #### Laboratory [address] [place] [address] Dr. Temo Mckeon LYMPH # 2.1 103/ul Normal 1.2-3.8 [facility] Comment on above: Performed By: #### C BC #### Laboratory [address] [place] [address] Dr. Temo Mckeon Lymphocytes/100 WBC (Bld) 17.5 % Critically low 20.5-60.0 [facility] Comment on above: Performed By: #### C BC #### Laboratory [address] [place] [address] Dr. Temo Mckeon MANUAL DIFF REQ NO Normal [facility] Comment on above: Performed By: #### C BC #### Laboratory [address] [place] [address] Dr. Temo Mckeon MCH (RBC) [Entitic mass] 30.6 pg Normal 25.9-34.0 [facility] Comment on above: Performed By: #### C BC #### Laboratory [address] [address] [address] Temo Mckeon MCHC (RBC) [Mass/Vol] 32.5 g/dL Normal 29.9-35.2 The Comment on above: Performed By: #### C BC #### Laboratory [address] [address] [address] Temo Mckeon MCV (RBC) [Entitic vol] 94.1 fL Critically high 80.0-94.0 [facility] Comment on above: Performed By: #### C BC #### Laboratory [address] [address] [address] Temo Mckeon MONO # 0.9 103/ul Critically high 0.3-0.8 [facility] Comment on above: Performed By: #### C BC #### Laboratory [address] [address] [address] Temo Mckeon Monocytes/100 WBC (Bld) 7.9 % Normal 1.7-12.0 [facility] Comment on above: Performed By: #### C BC #### Laboratory [address] [address] [address] Temo Mckeon NEUT # 8.4 103/ul Critically high 1.4-6.5 [facility] Comment on above: Performed By: #### C BC #### Laboratory [address] [address] [address] Temo Mckeon Neutrophils/100 WBC (Bld) 70.5 % Normal 43.0-75.0 The Comment on above: Performed By: #### C BC #### Laboratory [address] [address] [address] Temo Mckeon Platelet mean volume (Bld) [Entitic vol] 10.5 fL Normal 9.5-13.5 The Comment on above: Performed By: #### C BC #### Laboratory [address] [address] [address] Temo Mckeon PLT 172 103/ul Normal 150-450 The Comment on above: Performed By: #### C BC #### Laboratory [address] [address] [address] Temo Mckeon RBC 4.09 106/ul Critically low 4.70-6.10 [facility] Comment on above: Performed By: #### C BC #### Laboratory [address] [address] [address] Temo Mckeon WBC 11.9 103/ul Critically high 4.0-11.0 [facility] Comment on above: Performed By: #### C BC #### Laboratory [address] [address] [address] Temo Mckeon PROF CHEM 8 (BAS METB)on Anion gap [Moles/Vol] 14.2 mmol/L Normal [facility] Comment on above: Performed By: #### B DIESEL PILE HAMMER OPERATOR, TSH, BMP #### Laboratory [address] [place] [address] Dr. Temo Mckeon Calcium [Mass/Vol] 9.1 mg/dL Normal 8.5-10.1 [facility] Comment on above: Performed By: #### B DIESEL PILE HAMMER OPERATOR, TSH, BMP #### Laboratory [address] [address] [address] Temo Mckeon Chloride [Moles/Vol] 105 mmol/L Normal 98-107 [facility] Comment on above: Performed By: #### B DIESEL PILE HAMMER OPERATOR, TSH, BMP #### Laboratory [address] [address] [address] Temo Mckeon CO2 [Moles/Vol] 25.3 mmol/L Normal 21.0-32.0 [facility] Comment on above: Performed By: #### B DIESEL PILE HAMMER OPERATOR, TSH, BMP #### Laboratory [address] [address] [address] Temo Mckeon Creatinine [Mass/Vol] 1.72 mg/dL Critically high 0.70-1.30 [facility] Comment on above: Performed By: #### B DIESEL PILE HAMMER OPERATOR, TSH, BMP #### Laboratory [address] [address] [address] Temo Mckeon EGFR-AF IRISH 47 mL/min/1.73m2 Critically low >=60 The Comment on above: Performed By: #### B DIESEL PILE HAMMER OPERATOR, TSH, BMP #### Laboratory [address] [place] [address] Dr. Temo Mckeon EGFR-NON AF IRISH 39 mL/min/1.73m2 Critically low >=60 [facility] Comment on above: Performed By: #### B DIESEL PILE HAMMER OPERATOR, TSH, BMP #### Laboratory [address] [place] [address] Dr. Temo Mckeon Glucose [Mass/Vol] 134 mg/dL Critically high 74-106 [facility] Comment on above: Performed By: #### B DIESEL PILE HAMMER OPERATOR, TSH, BMP #### Laboratory [address] [place] [address] Dr. Temo Mckeon Potassium [Moles/Vol] 4.5 mmol/L Normal 3.5-5.1 [facility] Comment on above: Performed By: #### B DIESEL PILE HAMMER OPERATOR, TSH, BMP #### Laboratory [address] [place] [address] Dr. Temo Mckeon Sodium [Moles/Vol] 140 mmol/L Normal 136-145 [facility] Comment on above: Performed By: #### B DIESEL PILE HAMMER OPERATOR, TSH, BMP #### Laboratory [address] [place] [address] Dr. Temo Mckeon Urea nitrogen [Mass/Vol] 36.0 mg/dL Critically high 7.0-18.0 [facility] Comment on above: Performed By: #### B DIESEL PILE HAMMER OPERATOR, TSH, BMP #### Laboratory [address] [place] [address] Dr. Temo Mckeon Urea nitrogen/Creatinine [Mass ratio] 20.9 mg/mg Normal [facility] Comment on above: Performed By: #### B DIESEL PILE HAMMER OPERATOR, TSH, BMP #### Laboratory [address] [place] [address] Dr. Temo Mckeon TSHon 02-17-2022 TSH 1.708 uIU/mL Normal 0.358-3.740 [facility] Comment on above: Performed By: #### B DIESEL PILE HAMMER OPERATOR, TSH, BMP #### Laboratory [address] [address] [address] Temo Mckeon XR KUB 1 VIEWon [...] RADU CHRISTENSEN Date: 2022-02-17 11:43 Normal The METHYLMALONIC ACID (MMA)on 0 11-01-2021 Methylmalonic Acid, Serum 205 nmol/L Normal 0-378 The Comment on above: Performed By: #### C BC #### Laboratory [address] [address] [address] Temo Mckeon FOLATE ([facility])on Folate >20.0 Normal >3.0 The Comment on above: Result Comment: A rum folate concentration of less than 3.1 ng/mL is considered to represent clinical deficiency. Performed By: #### B MP, ALT, LIPID #### Laboratory [address] [address] [address] Temo Mckeon CBC AUTO DIFFon 10-29-2021 BASO # 0.1 103/ul Normal 0.0-0.1 [facility] Comment on above: Performed By: #### C BC #### Laboratory [address] [address] [address] Temo Mckeon Basophils/100 WBC (Bld) 0.5 % Normal 0.2-2.0 [facility] Comment on above: Performed By: #### C BC #### Laboratory [address] [place] [address] Dr. Temo Mckeon EO # 0.3 103/ul Normal 0.0-0.7 [facility] Comment on above: Performed By: #### C BC #### Laboratory [address] [place] [address] Dr. Temo Mckeon Eosinophils/100 WBC (Bld) 3.3 % Normal 0.9-7.0 [facility] Comment on above: Performed By: #### C BC #### Laboratory [address] [place] [address] Dr. Temo Mckeon Erythrocyte distribution width (RBC) [Ratio] 13.3 % Normal 11.0-15.0 [facility] Comment on above: Performed By: #### C BC #### Laboratory [address] [place] [address] Dr. Temo Mckeon Hematocrit (Bld) [Volume fraction] 40.4 % Critically low 42.0-54.0 [facility] Comment on above: Performed By: #### C BC #### Laboratory [address] [place] [address] Dr. Temo Mckeno Hemoglobin (Bld) [Mass/Vol] 13.4 g/dL Critically low 14.0-18.0 [facility] Comment on above: Performed By: #### C BC #### Laboratory [address] [place] [address] Dr. Temo Mckeon IG # 0.06 10e3/ul Critically high 0.00-0.03 [facility] Comment on above: Performed By: #### C BC #### Laboratory [address] [place] [address] Dr. Temo Mckeon IG % 0.6 % Critically high 0.0-0.5 [facility] Comment on above: Performed By: #### C BC #### Laboratory [address] [place] [address] Dr. Temo Mckeon LYMPH # 2.2 103/ul Normal 1.2-3.8 [facility] Comment on above: Performed By: #### C BC #### Laboratory [address] [place] [address] Dr. Temo Mckeon Lymphocytes/100 WBC (Bld) 22.6 % Normal 20.5-60.0 [facility] Comment on above: Performed By: #### C BC #### Laboratory [address] [place] [address] Dr. Temo Mckeon MANUAL DIFF REQ NO Normal [facility] Comment on above: Performed By: #### C BC #### Laboratory [address] [place] [address] Dr. Temo Mckeon MCH (RBC) [Entitic mass] 30.8 pg Normal 25.9-34.0 [facility] Comment on above: Performed By: #### C BC #### Laboratory [address] [place] [address] Dr. Temo Mckeon MCHC (RBC) [Mass/Vol] 33.2 g/dL Normal 29.9-35.2 [facility] Comment on above: Performed By: #### C BC #### Laboratory [address] [place] [address] Dr. Temo Mckeon MCV (RBC) [Entitic vol] 92.9 fL Normal 80.0-94.0 [facility] Comment on above: Performed By: #### C BC #### Laboratory [address] [place] [address] Dr. Temo Mckeon MONO # 0.7 103/ul Normal 0.3-0.8 [facility] Comment on above: Performed By: #### C BC #### Laboratory [address] [place] [address] Dr. Temo Mckeon Monocytes/100 WBC (Bld) 7.6 % Normal 1.7-12.0 [facility] Comment on above: Performed By: #### C BC #### Laboratory [address] [place] [address] Dr. Temo Mckeon NEUT # 6.2 103/ul Normal 1.4-6.5 The Comment on above: Performed By: #### C BC #### Laboratory [address] [address] [address] Temo Mckeon Neutrophils/100 WBC (Bld) 65.4 % Normal 43.0-75.0 [facility] Comment on above: Performed By: #### C BC #### Laboratory [address] [address] [address] Temo Mckeon Platelet mean volume (Bld) [Entitic vol] 10.5 fL Normal 9.5-13.5 The Comment on above: Performed By: #### C BC #### Laboratory [address] [address] [address] Temo Mckeon PLT 169 103/ul Normal 150-450 The Comment on above: Performed By: #### C BC #### Laboratory [address] [place] [address] Dr. Temo Mckeon RBC 4.35 106/ul Critically low 4.70-6.10 [facility] Comment on above: Performed By: #### C BC #### Laboratory [address] [place] [address] Dr. Temo Mckeon WBC 9.5 103/ul Normal 4.0-11.0 The Comment on above: Performed By: #### C BC #### Laboratory [address] [place] [address] Dr. Temo Mckeon FERRITINon 10-29-2021 Ferritin [Mass/Vol] 423.0 ng/mL Critically high 26.0-388.0 The Comment on above: Performed By: #### C BC #### Laboratory [address] [place] [address] Dr. Temo Mckeon IRON AND TIBCon 10-29-2021 % SATURATION 25.6 % Normal The Comment on above: Performed By: #### C BC #### Laboratory [address] [place] [address] Dr. Temo Mckeon Iron [Mass/Vol] 79.0 ug/dL Normal 65.0-175.0 [facility] Comment on above: Performed By: #### C BC #### Laboratory [address] [address] [address] Temo Mckeon TIBC DIRECT 308.0 ug/dL Normal 250.0-450.0 [facility] Comment on above: Performed By: #### C BC #### Laboratory [address] [address] [address] Teom Mckeon LIPID PROFILEon 10-29-2021 CHOL-HDL RATIO NORM SEE BELOW Normal [facility] Comment on above: Result Comment: 3.3 - 4.4 LOW RISK 4.4 - 7.1 AVERAGE RISK 7.1 - 11.0 MODERATE RISK >11.0 HIGH RISK Performed By: #### B MP, ALT, LIPID #### Laboratory [address] [address] [address] Temo Mckeon Cholesterol [Mass/Vol] 93 mg/dL Normal <=200 [facility] Comment on above: Performed By: #### B MP, ALT, LIPID #### Laboratory [address] [address] [address] Temo Mckeon Cholesterol in HDL [Mass/Vol] 40 mg/dL Normal 40-60 [facility] Comment on above: Performed By: #### B MP, ALT, LIPID #### Laboratory [address] [address] [address] Temo Mckeon Cholesterol in LDL [Mass/Vol] 35.4 mg/dL Normal [facility] Comment on above: Performed By: #### B MP, ALT, LIPID #### Laboratory [address] [address] [address] Temo Mckeon Cholesterol.total/C holesterol in HDL [Mass ratio] 2.3 {ratio} Normal [facility] Comment on above: Performed By: #### B MP, ALT, LIPID #### Laboratory [address] [address] [address] Temo Mckeon HDL NORMAL > or = 60 mg/dl - LO W CARDIOVASCULAR RISK <40 mg/dl - HIGH CARDIOVASCULAR RISK Normal [facility] Comment on above: Performed By: #### B MP, ALT, LIPID #### Laboratory [address] [address] [address] Temo Mckeon LDL CALC NORMAL SEE BELOW Normal [facility] Comment on above: Result Comment: <100 mg/dl OPTIMAL 100 - 129 mg/dl NEAR OR ABOVE OPTIMAL 130 - 159 mg/dl BORDERLINE HIGH 160 - 189 mg/dl HIGH >190 mg/dl VERY HIGH Performed By: #### B MP, ALT, LIPID #### Laboratory [address] [address] [address] Temo Mckeon Triglyceride [Mass/Vol] 88 mg/dL Normal <=150 [facility] Comment on above: Performed By: #### B MP, ALT, LIPID #### Laboratory [address] [address] [address] Temo Mckeon VLDL CALC 17.6 mg/dL Normal [facility] Comment on above: Performed By: #### B MP, ALT, LIPID #### Laboratory [address] [address] [address] Temo Mckeon PROF CHEM 8 (BAS METB)on Anion gap [Moles/Vol] 14.6 mmol/L Normal [facility] Comment on above: Performed By: #### B MP, ALT, LIPID #### Laboratory [address] [address] [address] Temo Mckeon Calcium [Mass/Vol] 8.8 mg/dL Normal 8.5-10.1 [facility] Comment on above: Performed By: #### B MP, ALT, LIPID #### Laboratory [address] [place] [address] Dr. Temo Mckeon Chloride [Moles/Vol] 106 mmol/L Normal 98-107 The Comment on above: Performed By: #### B MP, ALT, LIPID #### Laboratory [address] [place] [address] Dr. Temo Mckeon CO2 [Moles/Vol] 23.8 mmol/L Normal 21.0-32.0 [facility] Comment on above: Performed By: #### B MP, ALT, LIPID #### Laboratory [address] [address] [address] Temo Mckeon Creatinine [Mass/Vol] 1.57 mg/dL Critically high 0.70-1.30 [facility] Comment on above: Performed By: #### B MP, ALT, LIPID #### Laboratory [address] [place] [address] Dr. Temo Mckeon EGFR-AF IRISH 52 mL/min/1.73m2 Critically low >=60 [facility] Comment on above: Performed By: #### B MP, ALT, LIPID #### Laboratory [address] [place] [address] Dr. Temo Mckeon EGFR-NON AF IRISH 43 mL/min/1.73m2 Critically low >=60 [facility] Comment on above: Performed By: #### B MP, ALT, LIPID #### Laboratory [address] [place] [address] Dr. Temo Mckeon Glucose [Mass/Vol] 148 mg/dL Critically high 74-106 T [facility] Comment on above: Performed By: #### B MP, ALT, LIPID #### Laboratory [address] [place] [address] Dr. Temo Mckeon Potassium [Moles/Vol] 4.4 mmol/L Normal 3.5-5.1 [facility] Comment on above: Performed By: #### B MP, ALT, LIPID #### Laboratory [address] [place] [address] Dr. Temo Mckeon Sodium [Moles/Vol] 140 mmol/L Normal 136-145 [facility] Comment on above: Performed By: #### B MP, ALT, LIPID #### Laboratory [address] [address] Dr. Temo Mckeon Urea nitrogen [Mass/Vol] 31.0 mg/dL Critically high 7.0-18.0 [facility] Comment on above: Performed By: #### B MP, ALT, LIPID #### Laboratory [address] [place] [address] Dr. Temo Mckeon Urea nitrogen/Creatinine [Mass ratio] 19.7 mg/mg Normal [facility] Comment on above: Performed By: #### B MP, ALT, LIPID #### Laboratory [address] [place] [address] Dr. Temo Mckeon SGPTon 10-29-2021 ALT [Catalytic activity/Vol] 39 U/L Normal 16-63 [facility] Comment on above: Performed By: #### B MP, ALT, LIPID #### Laboratory [address] [place] [address] Dr. Temo Mckeon VITAMIN B12on 10-29-2021 Cobalamin (Vitamin B12) [Mass/Vol] 675.0 pg/mL Normal 193.0-986.0 [facility] Comment on above: Performed By: #### C BC #### Laboratory [address] [place] [address] Dr. Temo Mckeon XR KUB 1 VIEWon [...] MARTA HALE Date: 2021-08-29 19:34 Normal The CBC AUTO DIFFon 08-21-2021 BASO # 0.0 103/ul Normal 0.0-0.1 [facility] Comment on above: Performed By: #### C BC #### Laboratory [address] [place] [address] Dr. Temo Mckeon Basophils/100 WBC (Bld) 0.3 % Normal 0.2-2.0 The Comment on above: Performed By: #### C BC #### Laboratory [address] [place] [address] Dr. Temo Mckeon EO # 0.3 103/ul Normal 0.0-0.7 The Comment on above: Performed By: #### C BC #### Laboratory [address] [place] [address] Dr. Temo Mckeon Eosinophils/100 WBC (Bld) 3.2 % Normal 0.9-7.0 [facility] Comment on above: Performed By: #### C BC #### Laboratory [address] [place] [address] Dr. Temo Mckeon Erythrocyte distribution width (RBC) [Ratio] 13.5 % Normal 11.0-15.0 [facility] Comment on above: Performed By: #### C BC #### Laboratory [address] [place] [address] Dr. Temo Mckeon Hematocrit (Bld) [Volume fraction] 38.8 % Critically low 42.0-54.0 [facility] Comment on above: Performed By: #### C BC #### Laboratory [address] [place] [address] Dr. Temo Mckeon Hemoglobin (Bld) [Mass/Vol] 12.8 g/dL Critically low 14.0-18.0 [facility] Comment on above: Performed By: #### C BC #### Laboratory [address] [place] [address] Dr. Temo Mckeon IG # 0.05 10e3/ul Critically high 0.00-0.03 [facility] Comment on above: Performed By: #### C BC #### Laboratory [address] [place] [address] Dr. Temo Mckeon IG % 0.5 % Normal 0.0-0.5 [facility] Comment on above: Performed By: #### C BC #### Laboratory [address] [place] [address] Dr. Temo Mckeon LYMPH # 1.8 103/ul Normal 1.2-3.8 The Comment on above: Performed By: #### C BC #### Laboratory [address] [place] [address] Dr. Temo Mckeon Lymphocytes/100 WBC (Bld) 19.6 % Critically low 20.5-60.0 [facility] Comment on above: Performed By: #### C BC #### Laboratory [address] [place] [address] Dr. Temo Mckeon MANUAL DIFF REQ NO Normal [facility] Comment on above: Performed By: #### C BC #### Laboratory [address] [place] [address] Dr. Temo Mckeon MCH (RBC) [Entitic mass] 31.1 pg Normal 25.9-34.0 [facility] Comment on above: Performed By: #### C BC #### Laboratory [address] [place] [address] Dr. Temo Mckeon MCHC (RBC) [Mass/Vol] 33.0 g/dL Normal 29.9-35.2 The Comment on above: Performed By: #### C BC #### Laboratory [address] [place] [address] Dr. Temo Mckeon MCV (RBC) [Entitic vol] 94.4 fL Critically high 80.0-94.0 [facility] Comment on above: Performed By: #### C BC #### Laboratory [address] [place] [address] Dr. Temo Mckeon MONO # 0.7 103/ul Normal 0.3-0.8 [facility] Comment on above: Performed By: #### C BC #### Laboratory [address] [place] [address] Dr. Temo Mckeon Monocytes/100 WBC (Bld) 7.5 % Normal 1.7-12.0 [facility] Comment on above: Performed By: #### C BC #### Laboratory [address] [place] [address] Dr. Temo Mckeon NEUT # 6.4 103/ul Normal 1.4-6.5 The Comment on above: Performed By: #### C BC #### Laboratory [address] [place] [address] Dr. Temo Mckeon Neutrophils/100 WBC (Bld) 68.9 % Normal 43.0-75.0 [facility] Comment on above: Performed By: #### C BC #### Laboratory [address] [address] [address] Temo Mckeon Platelet mean volume (Bld) [Entitic vol] 10.2 fL Normal 9.5-13.5 [facility] Comment on above: Performed By: #### C BC #### Laboratory [address] [place] [address] Dr. Temo Mckeon PLT 160 103/ul Normal 150-450 The Comment on above: Performed By: #### C BC #### Laboratory [address] [address] [address] Temo Mckeon RBC 4.11 106/ul Critically low 4.70-6.10 [facility] Comment on above: Performed By: #### C BC #### Laboratory [address] [address] [address] Temo Mckeon WBC 9.3 103/ul Normal 4.0-11.0 [facility] Comment on above: Performed By: #### C BC #### Laboratory [address] [address] [address] Temo Mckeon Covid-19 PCR (CVDTB)on 08-08 SARS-CoV-2 (COVID-19) RNA PRADEEP+probe Ql (Unsp spec) Not detected Normal NOT DETECTED The Comment on above: Result Comment: This test is not yet approved or cleared by the [place] FDA. When there are no FDA-approved or cleared tests available, and other criteria are met, FDA can make tests available under an emergency access mechanism called an Emergency Use Authorization (EUA). The EUA for this test is supported by the [employer] of Health and Human Service's (HHS's) declaration [...] SARS-CoV-2. Performed By: #### C BC #### Laboratory [address] [address] [address] Temo Mckeon PROF CHEM 8 (BAS METB)on Anion gap [Moles/Vol] 12.4 mmol/L Normal [facility] Comment on above: Performed By: #### C BC #### Laboratory [address] [place] [address] Dr. Teom Mckeon Calcium [Mass/Vol] 8.6 mg/dL Normal 8.5-10.1 [facility] Comment on above: Performed By: #### C BC #### Laboratory [address] [place] [address] Dr. Temo Mckeon Chloride [Moles/Vol] 105 mmol/L Normal 98-107 [facility] Comment on above: Performed By: #### C BC #### Laboratory [address] [place] [address] Dr. Temo Mckeon CO2 [Moles/Vol] 27.0 mmol/L Normal 22.0-30.0 [facility] Comment on above: Performed By: #### C BC #### Laboratory [address] [place] [address] Dr. Temo Mckeon Creatinine [Mass/Vol] 1.57 mg/dL Critically high 0.66-1.25 [facility] Comment on above: Performed By: #### C BC #### Laboratory [address] [place] [address] Dr. Temo Mckeon EGFR-AF IRISH 52 mL/min/1.73m2 Critically low >=60 [facility] Comment on above: Performed By: #### C BC #### Laboratory [address] [place] [address] Dr. Temo Mckeon EGFR-NON AF IRISH 43 mL/min/1.73m2 Critically low >=60 [facility] Comment on above: Performed By: #### C BC #### Laboratory [address] [place] [address] Dr. Temo Mckeon Glucose [Mass/Vol] 145 mg/dL Critically high 74-106 [facility] Comment on above: Performed By: #### C BC #### Laboratory [address] [address] [address] Temo Mckeon Potassium [Moles/Vol] 4.4 mmol/L Normal 3.4-5.0 [facility] Comment on above: Performed By: #### C BC #### Laboratory [address] [address] [address] Temo Mckeon Sodium [Moles/Vol] 140 mmol/L Normal 137-145 [facility] Comment on above: Performed By: #### C BC #### Laboratory [address] [address] [address] Temo Mckeon Urea nitrogen [Mass/Vol] 32.0 mg/dL Critically high 7.0-18.0 [facility] Comment on above: Performed By: #### C BC #### Laboratory [address] [place] [address] Dr. Temo Mckeon Urea nitrogen/Creatinine [Mass ratio] 20.4 mg/mg Normal [facility] Comment on above: Performed By: #### C BC #### Laboratory [address] [place] [address] Dr. Temo Mckeon PROTIMEon 08-21-2021 INR Coag (PPP) [Relative time] 1.04 {INR} Normal [facility] Comment on above: Performed By: #### C BC #### Laboratory [address] [place] [address] Dr. Temo Mckeon INR GUIDELINES SEE BELOW Normal [facility] Comment on above: Result Comment: APPLE RED INR: 2.0 - 3.0 CONDITIONS NOT LISTED BELOW 2.5 - 3.5 FOR PROSTHETIC HEART VALVE REPLACEMENT 2.5 - 3.5 RECURRENT THROMBOSIS Performed By: #### C BC #### Laboratory [address] [place] [address] Dr. Temo Mckeon PT Coag (PPP) [Time] 11.2 s Normal 9.0-11.6 [facility] Comment on above: Performed By: #### C BC #### Laboratory [address] [place] [address] [address] [address] Temo Mckeon PTTon 08-21-2021 aPTT Coag (Bld) [Time] 25.2 s Normal 22.3-36.2 The Comment on above: Performed By: #### C BC #### Laboratory [address] [place] [address] [address] [address] Temo Mckeon XR KUB 1 VIEWon [...] TANISHA MATOS Date: 2021-07-29 09:21 Normal The Covid-19 PCR (CVDTB)on 04-10 SARS-CoV-2 (COVID-19) RNA PRADEEP+probe Ql (Unsp spec) Not detected Normal NOT DETECTED The Comment on above: Result Comment: This test is not yet approved or cleared by the [place] FDA. When there are no FDA-approved or cleared tests available, and other criteria are met, FDA can make tests available under an emergency access mechanism called an Emergency Use Authorization (EUA). The EUA for this test is supported by the [place] of Health and Human Service's (HHS's) declaration [...] SARS-CoV-2. Performed By: #### C VDTBH #### Laboratory [address] angio chest PE protocolon 03-07-2021 CT angio chest PE protocol [facility] [address] [place] [id number] Scan Report Signed Patient: Lenin Lam MR#: [id number] 71 : 1945 Acct:[id number] Age/Sex: 75 / M ADM Date: 03/07/21 Loc: CT Room: Type: [facility] Attending Dr: Erika Bender MD Ordering Provider: [...] Balwinder Zambrano M.D.03/07/2021 2:01 PM Dictation Location: [place] [address] Transcribed By: [facility] 03/07/21 1401 Dictated By: Balwinder Zambrano DO 03/07/21 1359 Signed By: 03/07/21 1401 Normal [facility] ECH echo transthoracicon ECH echo transthoracic [facility] Main [address] [address] Echocardiogram Signed Patient: Lenin Lam MR#: [id number] 71 : 1945 Acct:[id number] Age/Sex: 75 / M ADM Date: 03/07/21 Loc: CT Room: Type: [facility] Attending Dr: Erika Bender MD Ordering Provider: [...] DO 03/07/21 1351 Signed By: 03/07/21 1449 [facility] ISTAT XRay CREon 03-07-2021 Creatinine [Mass/Vol] 1.5 mg/dL High 0.6-1.3 [facility] Comment on above: Result Comment: ER/E SD physician is notified/shown all ISTAT results. Critical values may be confirmed by laboratory testing if deemed necessary by ER attending doctor. Performed By: #### I SCRE #### [address] Point of Care testing , ISTAT GFR ( 55 [facility] Comment on above: Result Comment: GFR estimated reference range: According to KDOQI guidelines, <60 ml/min/1.73m2 is sufficient to diagnose a patient with chronic kidney disease. PERFORMED BY: [place] [address] PATHOLOGIST [employer]K [employer]AND [employer]TER POOJA MYERS M.D. Performed By: #### I SCRE #### [address] Point of Care testing , ISTAT GFR (Non- Am 46 [facility] Comment on above: Performed By: #### I SCRE #### [address] Point of Care testing , Vital Signs Date Time Vital Sign Value Performing Clinician Facility 02-01-2023 09:30-0400 Body height 162.56 cm Leo Garcias Other [facility] Other 02-01-2023 09:30-0400 Body mass index (BMI) [Ratio] 49.6 kg/m2 Leo Garcias Other [facility] Other 02-01-2023 09:30-0400 Body weight 131.09 kg Leo Ball Other [facility] Other 02-01-2023 09:30-0400 Diastolic blood pressure 83 mm[Hg] Leo Ball Other [facility] Other 02-01-2023 09:30-0400 Respiratory rate 20 /min Leo Ball Other [facility] Other 02-01-2023 09:30-0400 SaO2% (BldA) [Mass fraction] 97 % Leo Ball Other [facility] Other 02-01-2023 09:30-0400 Systolic blood pressure 147 mm[Hg] Leo Ball Other [facility] Other 10-30-2022 09:00-0400 Body height 162.56 cm Leo Ball Other [facility] Other 10-30-2022 09:00-0400 Body mass index (BMI) [Ratio] 50.67 kg/m2 Leo Ball Other [facility] Other 10-30-2022 09:00-0400 Body weight 133.9 kg Leo Ball Other [facility] Other 10-30-2022 09:00-0400 Diastolic blood pressure 68 mm[Hg] Leo Ball Other [facility] Other 10-30-2022 09:00-0400 Respiratory rate 20 /min Leo Ball Other [facility] Other 10-30-2022 09:00-0400 SaO2% (BldA) [Mass fraction] 98 % Leo Ball Other [facility] Other 10-30-2022 09:00-0400 Systolic blood pressure 121 mm[Hg] Leo Ball Other [facility] Other 08-24-2022 10:32-0400 Blood Pressure Location Demetri ESTRELLA [facility] 08-24-2022 10:32-0400 Diastolic blood pressure 73 mm[Hg] Demetri ESTRELLA [facility] 08-24-2022 10:32-0400 Heart rate 59 /min Demetri ESTRELLA [facility] 08-24-2022 10:32-0400 Respiratory rate 16 /min Demetri ESTRELLA [facility] 08-24-2022 10:32-0400 Systolic blood pressure 125 mm[Hg] Demetri ESTRELLA [facility] 06-30-2022 09:00-0500 Body height 162.56 cm Leo Ball Other [facility] Other 06-30-2022 09:00-0500 Body mass index (BMI) [Ratio] 51.52 kg/m2 Leo Ball Other [facility] Other 06-30-2022 09:00-0500 Body weight 136.17 kg Leo Ball Other [facility] Other 06-30-2022 09:00-0500 Diastolic blood pressure 84 mm[Hg] Leo Ball Other [facility] Other 06-30-2022 09:00-0500 Respiratory rate 20 /min Leo Ball Other [facility] Other 06-30-2022 09:00-0500 Systolic blood pressure 128 mm[Hg] Leo Garcias Other [facility] Other 02-23-2022 11:07-0400 Blood Pressure Location Demetri ESTRELLA [facility] 02-23-2022 11:07-0400 Diastolic blood pressure 74 mm[Hg] Demetri ESTRELLA [facility] 02-23-2022 11:07-0400 Heart rate 76 /min Demetri ESTRELLA [facility] 02-23-2022 11:07-0400 Respiratory rate 16 /min Demetri ESTRELLA [facility] 02-23-2022 11:07-0400 Systolic blood pressure 128 mm[Hg] Demetri ESTRELLA [facility] 08-04-2021 08:51-0400 Blood Pressure Location Demetri ESTRELLA [facility] 08-04-2021 08:51-0400 Diastolic blood pressure 72 mm[Hg] Demetri ESTRELLA [facility] 08-04-2021 08:51-0400 Heart rate 63 /min Demetri ESTRELLA [facility] 08-04-2021 08:51-0400 Respiratory rate 16 /min Demetri ESTRELLA [facility] 08-04-2021 08:51-0400 Systolic blood pressure 121 mm[Hg] Demetri ESTRELLA [facility] 04-01-2021 12:45-0500 Body height 162.56 cm Erika Bender Other [facility] Other 04-01-2021 12:45-0500 Body mass index (BMI) [Ratio] 51.15 kg/m2 Erika Bender Other [facility] Other 04-01-2021 12:45-0500 Body temperature 97.6 [degF] Erika Bender Other [facility] Other 04-01-2021 12:45-0500 Body weight 135.17 kg Erika Bender Other [facility] Other 04-01-2021 12:45-0500 Diastolic blood pressure 68 mm[Hg] Erika Bender Other [facility] Other 04-01-2021 12:45-0500 Respiratory rate 20 /min Erika Bender Other [facility] Other 04-01-2021 12:45-0500 SaO2% (BldA) [Mass fraction] 97 % Erika Bender Other [facility] Other 04-01-2021 12:45-0500 Systolic blood pressure 140 mm[Hg] Erika Bender Other [facility] Other 03-04-2021 16:15-0400 Body height 162.56 cm Erika Bender Other [facility] Other 03-04-2021 16:15-0400 Body mass index (BMI) [Ratio] 51.15 kg/m2 Erika Bender Other [facility] Other 03-04-2021 16:15-0400 Body temperature 98.3 [degF] Erika Bender Other [facility] Other 03-04-2021 16:15-0400 Body weight 135.17 kg Erika Bender Other [facility] Other 03-04-2021 16:15-0400 Diastolic blood pressure 68 mm[Hg] Erika Bender Other [facility] Other 03-04-2021 16:15-0400 Respiratory rate 20 /min Erika Bender Other [facility] Other 03-04-2021 16:15-0400 SaO2% (BldA) [Mass fraction] 97 % Erika Bender Other [facility] Other 03-04-2021 16:15-0400 Systolic blood pressure 148 mm[Hg] Erika Bender Other [facility] Other Encounters Encounter Date Encounter Type Care Provider Facility Start: 01-31-2024 End: 01-31-2024 ambulatory EHAB [facility] Start: 01-04-2024 End: 01-04-2024 ambulatory RUI TOLEDO Not Available Start: 12-29-2023 End: 12-29-2023 ambulatory RUI TOLEDO Not Available Start: 11-30-2023 End: 11-30-2023 ambulatory ILENE FLORES Not Available Start: 10-06-2023 End: 10-06-2023 ambulatory CLAUDETTE RICHARDSON Not Available Start: 09-13-2023 End: 09-14-2023 ambulatory Mary Ann Villalobos MD [facility]: [facility] Start: 09-06-2023 End: 09-07-2023 ambulatory Mary Ann Villalobos MD Facility: [facility] Start: 08-31-2023 End: 09-01-2023 ambulatory Orquidea X Benjych Facility:[facility] Start: 08-31-2023 End: 08-31-2023 Patient encounter procedure Orquidea X Benjych [facility] Start: 07-05-2023 End: 07-06-2023 ambulatory Mary Ann Villalobos MD Facility: [facility] Start: 06-21-2023 End: 06-22-2023 ambulatory Mary Ann Villalobos MD [facility]: [facility] Start: 05-20-2023 End: 05-20-2023 ambulatory CLAUDETTE RICHARDSON Not Available Start: 03-08-2023 End: 03-09-2023 ambulatory Mary Ann Villalobos MD Facility: [facility] Start: 02-08-2023 End: 02-09-2023 ambulatory Mary Ann Villalobos MD Facility: [facility] Start: 02-01-2023 End: 02-01-2023 ambulatory Leo Garcias Other [facility] Other Start: 02-01-2023 Office outpatient vi sit 25 minutes Leo Garcias [facility] Start: 01-13-2023 End: 01-13-2023 ambulatory Leo Garcias Other [facility] Other Start: 01-13-2023 Telephone encounter Leo CHILDRESS G [facility] Start: 11-09-2022 End: 11-09-2022 ambulatory Leo Garcias Other [facility] Other Start: 11-09-2022 Telephone encounter Leo Garcias [facility] Start: 10-30-2022 End: 10-30-2022 ambulatory Leo Dieter Other [facility] Other Start: 10-30-2022 Patient encounter procedure Leo Garcias [facility] Start: 08-24-2022 End: 08-24-2022 Patient encounter procedure Demetri ESTRELLA [facility] Start: 07-08-2022 End: 07-08-2022 ambulatory Leo Garcias Other [facility] Other Start: 07-08-2022 Telephone encounter Leo CHILDRESS Dieter [facility] Start: 06-30-2022 End: 06-30-2022 ambulatory Leo Garcias Other [facility] Other Start: 06-30-2022 Office outpatient vi sit 25 minutes Leo Garcias [facility] Start: 02-23-2022 End: 02-23-2022 Patient encounter procedure Demetri ESTRELLA [facility] Start: 02-17-2022 End: 02-18-[address] LEO GARCIAS Facility:[facility] Start: 10-29-2021 End: 10-30-[address] LEO GARCIAS Facility:[facility] Start: 10-22-2021 Adult health examination Louis Garcias Other [facility] Other Start: 08-28-2021 End: 08-28-[address] DEMETRI ESTRELLA Facility:[facility] Start: 08-25-2021 Encounter for preprocedural cardiovascular examination DR DEMETRI ESTRELLA [facility] Start: 08-25-2021 Encounter for preprocedural laboratory examination DR DEMETRI ESTRELLA [facility] Start: 08-25-[address] DEMETRI ESTRELLA [facility] ity:[facility] Start: 08-21-2021 End: 08-22-[address] DEMETRI ESTRELLA Facility:[facility] Start: 08-21-2021 End: 08-22-2021 Encounter for preprocedural cardiovascular examination DR DEMETRI ESTRELLA Facility:[facility] Start: 08-04-2021 End: 08-04-2021 Patient encounter procedure Demetri ESTRELLA [facility] Start: 07-29-2021 End: 07-30-[address] DEMETRI ESTRELLA Facility:[facility] Start: 05-05-2021 End: 05-05-[address] LEO GARCIAS Facility:[facility] Start: 04-01-2021 End: 04-01-2021 ambulatory Kamal Chaban Other [facility] Other Start: 04-01-2021 Office outpatient vi sit 15 minutes Kamal Chaban [facility] Start: 03-04-2021 Office outpatient ne w 45 minutes Kamal Chaban [facility] Start: 08-28-2019 Preoperative cardiovascular examination Leo Garcias Other [facility] Other Start: 07-06-2018 End: 07-07-2018 Patient encounter procedure DEFAULT PHYSICIAN Facility:[facility] Start: 07-04-2018 End: 07-05-2018 Patient encounter procedure DEFAULT PHYSICIAN Facility:[facility] Start: 07-01-2018 End: 07-02-2018 Patient encounter procedure DEFAULT PHYSICIAN Facility:[facility] Procedures Date Procedure Procedure Detail Performing Clinician Start: 10-29-[address] BETZY GARCIAS Comment on above: Performed By: #### C BC #### Laboratory [address] [place] [address] Dr. Temo Mckeon Start: 08-28-2021 Extracorporeal shock [...] [facility] Other Start: 01-31-2014 Pre-surgery evaluation Leo Garicas Other Depression screening Drake Garcias Other Screening for malign ant neoplasm of prostate Leo Garcias Other Immunizations Immunization Date Immunization Notes Care Provider Caitie granda 02-01-2023 influenza, high dose seasonal, preservative-free Leo Garcias Other [facility] Other 03-23-2022 COVID-19 Pfizer (bivalent) Leo Garcias Other [facility] Other 02-24-2022 influenza virus vaccine, split virus (incl. purified surface antigen) Leo Garcias Other [facility] Other 02-24-2022 influenza, high dose seasonal, preservative-free Leo Garcias Other [facility] Other 03-26-2021 SARS-CoV-2 (COVID-19 ) mRNA BNT-162b2 vax Demetri ESTRELLA [facility] Comment on above: Result Comment: 2021: [id number] 02-21-2021 influenza virus vaccine, split virus (incl. purified surface antigen) Leo Garcias Other [facility] Other 02-07-2021 influenza virus vaccine, unspecified formulation Demetri ESTRELLA [facility] 07-30-2020 COVID-19 Vaccine Pfi zer - Documentation Purposes Only Erika Bender Other [facility] 07-08-2020 COVID-19 Vaccine Pfi zer - Documentation Purposes Only Erika Bender Other [facility] 05-10-2020 SARS-CoV-2 (COVID-19 ) mRNA BNT-162b2 vax Demetri ESTRELLA [facility] Comment on above: Result Comment: pt h as had 3 shots to date 02-29-2020 influenza virus vaccine, split virus (incl. purified surface antigen) Leo Garcias Other [facility] Other 02-16-2019 influenza virus vaccine, split virus (incl. purified surface antigen) Leo Garcias Other [facility] Other 01-24-2018 influenza virus vaccine, split virus (incl. purified surface antigen) Leo Garcias Other [facility] Other 01-24-2018 influenza virus vaccine, unspecified formulation Demetri ESTRELLA [facility] 01-24-2018 pneumococcal Conjuga te, unspecified formulation; Translations: [Need for prophylactic vaccination against Streptococcus pneumoniae (pneumococcus)] Leo Garcias Other [facility] Other 01-24-2018 pneumococcal polysaccharide vaccine, 23 valent Demetri ESTRELLA [facility] 02-18-2017 influenza virus vaccine, split virus (incl. purified surface antigen) Leo Garcias Other [facility] Other 02-18-2017 influenza virus vaccine, unspecified formulation Demetri ESTRLELA [facility] 02-12-2016 influenza virus vaccine, split virus (incl. purified surface antigen) Leo Garcias Other [facility] Other 02-12-2016 influenza virus vaccine, unspecified formulation Demetri ESTRELLA [facility] 02-28-2015 tetanus and diphther ia toxoids, adsorbed, preservative free, for adult use (5 Lf of tetanus toxoid and 2 Lf of diphtheria toxoid) Leo Garcias Other [facility] Other 02-28-2015 pneumococcal conjuga te vaccine, 13 valent Leo Garcias Other [facility] Other 02-16-2014 tetanus and diphther ia toxoids, adsorbed, preservative free, for adult use (5 Lf of tetanus toxoid and 2 Lf of diphtheria toxoid) Leo Garcias Other [facility] Other 02-08-2013 tetanus and diphther ia toxoids, adsorbed, preservative free, for adult use (5 Lf of tetanus toxoid and 2 Lf of diphtheria toxoid) Leo Garcias Other [facility] Other 02-17-2012 tetanus and diphther ia toxoids, adsorbed, preservative free, for adult use (5 Lf of tetanus toxoid and 2 Lf of diphtheria toxoid) Leo Garcias Other [employer] Other 02-13-2009 pneumococcal polysaccharide vaccine, 23 valent Leo Garcias Other [employer] Other 10-17-2003 Td(adult) unspecifie d formulation Demetri ESTERLLA [facility] Payers Date Payer Category Payer Medicare 2022 Private Health Insurance 1959 Medicare [id number] 2.1 [id number] 1959 Private Health Insurance [id number] 1946 Unknown [id number] 2.16.8 40.1.388859.3.579.2.647 1946 Unknown [id number] 2.16.8 40.1.798064.3.579.2.647 1946 Unknown [id number] 2.16.8 40.1.781805.3.579.2.647 1946 Unknown [id number] 2.16.84 0.1.442131.3.579.2.593 1946 Unknown [id number] 2.16.84 0.1.327323.3.579.2.593 1946 Unknown [id number] 2.16.84 0.1.664023.3.579.2.593 1946 Unknown [id number] 2.16.84 0.1.878728.3.579.2.593 1946 Unknown [id number] 2.16.84 0.1.199715.3.579.2.593 1946 Unknown [id number] 2.16.84 0.1.730222.3.579.2.593 1946 Unknown [id number] 2.16.84 0.1.496691.3.579.2.593 1946 Unknown [id number] 2.16.84 0.1.230582.3.579.2.593 1946 Unknown [id number] 2.16.8 40.1.259522.3.579.2.727 1946 Unknown [id number] 2.16. 840.1.417247.3.579.2.196 1946 Unknown [id number] 2.16. 840.1.840492.3.579.2.196 1946 Unknown [id number] 2.16. 840.1.015905.3.579.2.196 1946 Unknown [id number] 2.16. 840.1.903667.3.579.2.196 1946 Unknown [id number] 2.16. 840.1.781848.3.579.2.196 1946 Unknown [id number] 2.16. 840.1.438793.3.579.2.196 1946 Unknown [id number] 2.16.84 0.1.296090.3.579.2.1259 1946 Unknown [id number] 2.16.84 0.1.404367.3.579.2.1259 1946 Unknown [id number] 2.16.84 0.1.898643.3.579.2.1259 1946 Unknown [id number] 2.16.84 0.1.038899.3.579.2.1259 1946 Unknown [id number] 2.16.84 0.1.125148.3.579.2.1259 Unknown Social History Date Type Detail Facility Start: 01-30-2021 End: 08-31-2023 Tobacco smoking status Never smoked tobacco (finding) [facility] Other Sex Assigned At Male [facility] Other Tobacco smoking status Never [facility] Functional Status Date Assessment Result Facility 08-31-2023 Functional Status N/A [facility] 08-24-2022 Functional Status N/A [facility] 02-23-2022 Functional Status N/A [facility] Clinical Notes 12-09-2020 to 01-31-2024 Note Date & Type Note Facility 01-31-2024 Note [facility] Cardiology Clinic Note Chief Complaint: Patient here for 1 year follow up CAD, carotid artery stenosis, and hypertension. Had echo and carotid duplex last Feb 2023. Routine labs with lipids were done in October, and he's repeating them this morning for Dr. Garcias. Denies chest pain. Says his MONTES remains unchanged. Still goes to cardiac rehab twice a week. HPI: Lenin Lam is a 78 y.o. male Doing well overall. Had placement of a spine stimulator after his last visit with me; uneventful periprocedural. Has chronic shortness of breath with no change. Denies exertional chest pain. No orthopnea, no paroxysmal external dyspnea. No palpitations, no lightheadedness or dizziness and no syncope. Cardiology ROS: Review of Systems Cardiovascular: Positive [...] history on file. Allergies Patient has no known allergies. Medications Current Outpatient Medications: amLODIPine-benazepriL (Lotrel) 10-20 mg capsule, Take 1 capsule by mouth in the morning., Disp: 90 capsule, Rfl: 3 aspirin 81 mg EC tablet, Take 1 tablet by mouth in the morning., Disp: , Rfl: atorvastatin (Lipitor) 80 mg tablet, in the evening., Disp: , Rfl: citalopram (CeleXA) 20 mg tablet, Take 1 tablet by mouth at bedtime., Disp: , Rfl: clopidogrel (Plavix) 75 mg tablet, Take 1 tablet by mouth in the morning., Disp: , Rfl: finasteride (Proscar) 5 mg tablet, Take 5 mg by mouth in the morning., Disp: , Rfl: furosemide (Lasix) 20 mg tablet, TAKE 1 TABLET BY MOUTH EVERY DAY IN THE MORNING, Disp: 90 tablet, Rfl: 3 isosorbide mononitrate ER (Imdur) 60 mg 24 hr tablet, Take 1 tablet (60 mg) by mouth in the morning., Disp: 90 tablet, Rfl: 3 metoprolol succinate XL (Toprol-XL) 50 mg 24 hr tablet, Take 1 tablet by mouth in the morning., Disp: , Rfl: oxybutynin XL (Ditropan-XL) 15 mg 24 hr tablet, Take 15 mg by mouth., Disp: , Rfl: tamsulosin (Flomax) 0.4 mg 24 hr capsule, Take 1 capsule by mouth in the morning and at bedtime., Disp: , Rfl: traMADol (Ultram) 50 mg tablet, TAKE 1 TABLET BY MOUTH TWICE A DAY NEEDED FOR 30 DAYS, Disp: , Rfl: Last Recorded Vitals BP 126/70 (BP Location: Left wrist, Patient Position: Sitting) Pulse 65 Ht 1.651 m (5' 5 ) Wt 131 kg (288 lb) SpO2 94% BMI 47.93 kg/m??? Physical Examination: GENERAL: alert and oriented [...] total cholesterol 111, LDL 42.2, HDL 44 Stress test 01/02/2021: No acute or reversible ischemia. Diaphragm attenuation artifact. Ejection fraction is normal at 55%. No transient ischemic dilatation. Echocardiogram 02/2023: Conclusion: 1. Global left ventricular systolic function is difficult to assess but appears preserved; visually estimated ejection fraction is 55 to 60% 2. Mild concentric left ventricular hypertrophy 3. Normal diastolic function 4. The right ventricle is normal in size and systolic function 5. Mild to moderate pulmonic regurgitation Assessment: Coronary atherosclerosis s/p PCI RCA 2017 Mild to moderate pulmonic regurgitation Carotid artery stenosis <50% Essential hypertension Dyslipidemia CKD Morbid obesity Plan: Continue current medical therapy for coronary artery disease including aspirin, Plavix, statin, beta-remy and Imdur A complete echocardiogram To monitor for changes in his ejection fraction, wall motion or valvular abnormalities particularly given his shortness of breath Will likely repeat stress test at his next visit as it will have been 4 years since his prior stress test Return to clinic in 1 year or sooner should problems arise Shalonda Rai MD, MPH, [facility], [facility], [facility] Interventional Cardiology Pager Email: [email or web address] 08-31-2023 Hospital Discharge instructions Patient Education 08/31/2023 [...] urethra. Follow these instructions at home: Take rpyb-ybz-tkcytzv and prescription medicines only as told by [...] provider. Document Revised: 11/12/2021 Document Reviewed: 11/12/2021 [employer] Patient Education 2022 [employer]. 08/31/2023 09:07:49 Urinary Incontinence Urinary Incontinence Urinary [...] nerve stimulation). ?For women, using a medical records library professor to prevent urine leaks. This is a [...] right after experiencing incontinence. General instructions Take rmba-cww-wmmurjo and prescription medicines only as told by [...] important. Where to find more information National Commerce of Diabetes and Digestive and Kidney Diseases: www.niddk.nih.gov [place] [employer]: www.urologyhealth.org Contact a health care [...] provider. Document Revised: 11/29/2020 Document Reviewed: 11/29/2020 [employer] Patient Education 2022 [employer]. Follow Up Care 08/24/2022 11:22:07 With:ISAAC Huston APRN, [employer], CHASE, URL Address: When: Unknown Comments:1 year with KUB With:SAMEER MONTIEL, Demetri Sequeira, URL Address: [facility] [address] , [place] [address] [phone] When: Unknown [facility] 02-01-2023 Evaluation note Encounter Date Diagnosis Assessment [...] use, the patient reduces the risk for UT, CVA, HTN, cardiac dysrhythmias and sudden cardiac [...] in remission (ICD-10 - F17.211) Continue abstinence [employer] Other 09-06-2023 Evaluation note* Encounter Date Diagnosis Assessment Notes Treatment Notes Treatment Clinical Notes Jan, Lumbosacral spondylosis with 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 Follow these instructions at home: Take awpa-zdi-tbvkrtk and prescription medicines only as told by [...] 04/26/2006 Document Revised: 03/21/2019 Document Reviewed: 05/31/2017 [employer] Patient Education 2020 [employer]. 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 Follow Up Care 08/28/2021 11:53:17 With:SAMEER MONTIEL, Demetri Sequeira, URL Address: [facility] [address] [place] [address]- [phone] When:08/24/2022 [facility] 03-28-2022 Hospital Discharge instructions Patient Education 08/04/2021 [...] Follow these instructions at home: Medicines Take motm-nyl-ascmtnc and prescription medicines only as told by [...] 05/15/2008 Document Revised: 08/07/2019 Document Reviewed: 03/17/2017 [employer] Patient Education 2020 [employer]. 08/04/2021 09:25:02 Calorie Counting for Weight Loss [...] 04/26/2006 Document Revised: 01/13/2019 Document Reviewed: 03/26/2017 [employer] Patient Education 2020 [employer]. 08/04/2021 09:24:51 Benign Prostatic Hyperplasia Benign Prostatic [...] urethra. Follow these instructions at home: Take jcgk-ifh-owoziye and prescription medicines only as told by [...] 04/26/2006 Document Revised: 03/21/2019 Document Reviewed: 05/31/2017 [employer] Patient Education [employer]. Follow Up Care 01/30/2021 10:09:00 With:SAMEER MONTIEL, Demetri Sequeira, URL Address: [facility] [address], [place] [address]- [phone] When: Unknown Comments:Will schedule RT ESWLF/u in 3-4 month due to new medication [facility] 11-23-2021 Evaluation note* Encounter Date Diagnosis Assessment Notes Treatment Notes Treatment Clinical Notes Mar, Dyspnea on exertion (ICD-10 - R06.00) Mar, Leg edema (ICD-10 - R60.0) [employer] Other 10-26-2021 Evaluation note* Encounter Date Diagnosis Assessment Notes Treatment Notes Treatment Clinical Notes Feb, Dyspnea on exertion (ICD-10 - R06.00) Feb, Leg edema (ICD-10 - R60.0) [employer] Other 08-02-2021 NoteHNO ID: [id number] Author: Amara Esqueda MD Service: ? Author [...] its relevant components. Amara Esqueda MD [facility] Appointment Date:11/07/2021 09:30:00 AM Scheduled Provider:Demetri ESTRELLA MD Location:[facility] Appointment Type:URO Office Visit [facility] evaluation + Plan note Future Appointments Appointment Date:08/24/2022 10:30:00 AM Scheduled Provider:Demetri ESTRELLA MD Location:[facility] Appointment Type:URO Office Visit [facility] evaluation + Plan note Future Appointments Appointment Date:03/01/2023 09:15:00 AM Scheduled Provider:Demetri ESTRELLA MD Location:[facility] Appointment Type:URO Office Visit [facility] evaluation noteNo InformationNort Nanoleaf Other History general Narrative - Reported* Type Description Date Medical History ADITHYA Medical History hypertension Medical History heart disease Surgical History bypass triple Surgical History 2 knee replacements Surgical History hiatal hernia Surgical History cataract x 2 Hospitalization History as above [employer] Other History general Narrative - Reported* Type [...] OF KIDNEY STONE Hospitalization History as above [facility] Other Hospital course Narrative No data available for this section [facility] progress note No data available for this section [facility] Summary Purpose Family History No Family History [...] 1 Lumbar spondylosis ( M47.816) Referral Organization [facility] Referring Provider First Name Leo Referring Provider Last Name Dieter Referring Provider Specialty Internal Me dicine Referred Organization Referred Provider Samantha Contreras Referred Address [address] [place], [place],[address] Referred Provider Specialty Pain Medicin e Referral [...] section and content) DATE CREATED AUTHOR 07/07/2018 [facility] DATE CREATED AUTHOR AUTHOR'S ORGANIZ ATION 12/09/2020 [facility] DATE CREATED AUTHOR AUTHOR'S ORGANIZ ATION 03/10/2021 [facility] DATE CREATED AUTHOR AUTHOR'S ORGANIZ ATION 03/01/2022 [facility] DATE CREATED AUTHOR AUTHOR'S ORGANIZ ATION 09/01/2023 [facility] DATE CREATED AUTHOR AUTHOR'S ORGANIZ ATION 09/23/2023 [facility] DATE CREATED AUTHOR AUTHOR'S ORGANIZ ATION 01/06/2024 [facility] DATE CREATED AUTHOR AUTHOR'S ORGANIZ ATION 02/01/2024 [facility] REASON FOR VISIT (unrecogniz ed section and content) Ref by Dr. Garcias for Dyspnea on exertion4 wk f/u MONTES, Leg Edema4 MONTH FOLLOW UPNo InformationWELLNESSlab resultsWELLNESSNo Information3 month Follow up Patient Care team informatio n (unrecognized section and content) Personnel Name: LEO GARCIAS DO Address: Address: [address], [place] [address] Personnel Name: LEO GARCIAS DO Address: Address: [address] Personnel Name: BALL DO, LEO Address: Address: [address] [place] [address] [place], [place] [address] FOR RECORDS PERTAINING TO PATIENTS WHO ARE [...] BE BASED ON THE PRIMARY CLINICAL RECORDS. [facility] Narrative [employer] [facility]. provides no warranty or guarantee of the accuracy or completeness of information in this document.
== END 2024-02-04 08:46 | disposition home or self-care (01) ==
LOC: CARD 08:45
PROVIDERS: PCP Internal Medicine; Visit Provider Internal Medicine Interventional Cardiology
DX: R06.00 Dyspnea, unspecified (principal)
CPT/HCPCS: 93306

== ENCOUNTER 2024-04-19 10:10 | Outpatient (OUT) | payer MEDICARE, OTHER, SELFPAY ==
--- OUTSIDE RECORDS SUMMARY | 2024-04-19 10:28 | XMS_ITS | CCD ---
Author Organization [facility] Team Providers [facility] Counselor Name Role Phone PHYSICIAN, DEFAULT Admitting Unavailable PHYSICIAN, DEFAULT Attending Unavailable [place], LEO Primary Care Unavailable PHYSICIAN, DEFAULT Admitting Unavailable PHYSICIAN, DEFAULT Attending Unavailable [place], LEO Primary Care Unavailable PHYSICIAN, DEFAULT Admitting Unavailable PHYSICIAN, DEFAULT Attending Unavailable [place], LEO Primary Care Unavailable LEO GARCIAS Primary Care Physician Erika Bender Unavailable JAMAICA, DR VAZQUEZ Primary Care Unavailable SAMEER, DR FOX Admitting Unavailable ESTRELLA, DR FOX Attending Unavailable ESTRELLA, DR FOX Consulting Unavailable BALL, DR VAZQUEZ Admitting Unavailable BALL, DR VAZQUEZ Attending Unavailable BALL, DR VAZQUEZ Primary Care Unavailable BALL, DR VAZQUEZ Consulting Unavailable ESTRELLA, DR DOMINIQUE Fernandezitting Unavailable ESTRELLA, DR FOX Attending Unavailable [...] Unavailable BALL, DR VAZQUEZ Consulting Unavailable CHRISTENSENRADU Consulting Unavailable ESTRELLA, DR FOX Admitting Unavailable ESTRELLA, DR FOX Attending Unavailable BALL, DR VAZQUEZ Primary Care Unavailable ESTRELLA, DR FOX Consulting Unavailable ESTRELLA, DR FOX Admitting Unavailable ESTRELLA, DR FOX Attending Unavailable BALL, DR VAZQUEZ Primary Care Unavailable ESTRELLA, DR FOX Consulting Unavailable ZACANDICE Cardenas Consulting Unavailable AFSHAN GTZ Consulting Unavaila ble SAMEER, DR FOX Admitting Unavailable ESTRELLA, DR FOX Attending Unavailable BALL, DR VAZQUEZ Primary Care Unavailable [place], Leo Unavailable Orquidea Huston Attending Unavailable Wilfredo MONTIEL, Mary Ann Chacko Attending Unavailable Wilfredo MONTIEL, Mary Ann Chacko Attending Unavailable Wilfredo MONTIEL, Mary Ann Chacko Attending Unavailable Wilfredo MONTIEL, Mary Ann Chacko Attending Unavailable Wilfredo MONTIEL, Mary Ann Chacko Attending Unavailable Wilfredo MONTIEL, Andjamin Chacko Attending Unavailable SHALONDA RAI Attending Unavailable CLAUDETTE BALDERRAMA Attending Unavailable CLAUDETTE BALDERRAMA Attending Unavailable ILENE GONZALEZ Attending Unavailable RUI TOLEDO Attending Unavailable RUI TOLEDO Attending Unavailable CLAUDETTE BALDERRAMA Attending Unavailable Leo Garcias MD Primary Care Provider Allergies Allergy Classification Reported Allergen(s) Allergy Type Date of Onset Reaction(s) Facility (1 source) 62995,00; Translations: [66576,00] Propensity to adverse reactions (disorder) 9 [facility] Repository (2 sources) patient allergy list reviewed by nurse or physicia Propensity to adverse reactions 9 Comment:Done [employer] Other (1 source) No Known Medication Allergies; Translations: [No Known Medication Allergies] Propensity to adverse reactions (disorder) [facility] Repository Medications Current Medications Medication Drug Class(es) Dates Sig (Normalized) Sig (Original) acetaminophen 500 mg oral tablet (13 sources) Start: 10-27-2019 Tylenol 500 mg, Oral, Refills(s) 0 Start Date: 10/27/19 Status: Ordered take 1 tablet by mouth every fou r hours Tylenol 325 MG 1 tablet as needed Orally every 4 hrs Not-Taking acetaminophen 325 mg / HYDROcodone bitartrate 7.5 mg oral tablet (1 source) Opioid Agonist Start: 09-22-2023 take 1 tablet by mouth three times daily as needed for pain HYDROcodone-acetaminophen ([place]) 7.5-325 MG tablet TAKE 1 TABLET BY MOUTH THREE TIMES A DAY NEEDED FOR PAIN 09/22/2023 Active amLODIPine 10 mg oral tablet (2 sources) Dihydropyridine Calcium Channel Oj Start: 10-27-2019 take 10 mg by mouth once daily amlodipine 10 mg, Oral, Daily, Refills(s) 0 Start Date: 10/27/19 Status: Ordered amLODIPine 10 mg / benazepril hydrochloride 20 mg oral capsule (13 sources) Dihydropyridine Calcium Channel Oj, Angiotensin Converting Enzyme Inhibitor Start: 08-24-2022 amlodipine-benazepril 10 mg-20 mg oral capsule Refill(s) 0 Start Date: 08/24/22 Status: Ordered ascorbic acid 60 mg / cholecalciferol 0.01 mg / folic acid 0.3 mg / niacin 13.5 mg / riboflavin 1.2 mg / sodium fluoride 0.55 mg / thiamine 1.05 mg / vitamin a 0.75 mg / vitamin b12 0.0045 mg / vitamin b6 1.05 mg / vitamin e 6.75 mg chewable tablet (2 sources) Nicotinic Acid, Vitamin A, Vitamin B12, Vitamin D, Vitamin C Pediatric Multivitam ins-Fl (MultiVitamin + Fluoride) 0.25 MG chewable tablet Multivitamin Active Aspir-81 (9 sources) Aspir-81 Active Aspirin (6 sources) Platelet Aggregation Inhibitor, Nonsteroidal Anti-inflammatory Drug Start: 10-27-2019 aspirin 81 mg, Refills(s) 0 Start Date: 10/27/19 Status: Ordered Start: 06-10-2009 take 2 tablets by mo uth once daily aspirin ([place]) 81 MG capsule chew 2 tablet (162MG) by ORAL route every day Oral 06/10/2009 Active atorvastatin 80 mg oral tablet (20 sources) HMG-CoA Reductase Inhibitor Start: 06-10-2009 take 80 mg by mouth once daily Lipitor 80 mg, Oral, Daily, Refills(s) 0 Start Date: 10/27/19 Status: Ordered Start: 06-10-2009 take 0.5 tablet by m outh once at bedtime atorvastatin (Lipitor) 20 MG tablet take 0.5 tablet (10MG) by ORAL route every bedtime Oral 06/10/2009 Active citalopram 20 mg oral tablet (15 sources) Serotonin Reuptake Inhibitor Start: 06-10-2009 take 1 tablet by mouth once daily in the morning citalopram (CeleXA) 20 MG tablet take 1 tablet (20MG) by ORAL route every morning Oral 06/10/2009 Active clopidogrel 75 mg oral tablet (20 sources) P2Y12 Platelet Inhibitor Start: 06-10-2009 take 1 tablet by mouth once daily clopidogrel (Plavix) 75 MG tablet take 1 tablet (75MG) by ORAL route every day Oral 06/10/2009 Active EXTRA STRENGTH ACETAMINOPHEN PO (2 sources) EXTRA STRENGTH ACETAMINOPHEN PO Extra Strength Acetaminophen Active finasteride 5 mg oral tablet (13 sources) 5-alpha Reductase Inhibitor Start: 01-30-2021 take 1 tablet by mouth once daily finasteride 5 mg Tab 5 mg = 1 tab(s), Oral, Daily, # 90 tab(s), Refills(s) 3, Pharmacy: [facility]/pharmacy #[id number], 164, cm, 08/24/22 10:54:00 EDT, Height/Length Dosing, 138, kg, 08/24/22 10:54:00 EDT, Weight Dosing Start Date: 01/19/23 Status: Ordered Lasix (15 sources) Loop Diuretic Start: 10-27-2019 Lasix 20 mg, D aily, Refills(s) 0 Start Date: 10/27/19 Status: Ordered take 1 tablet by mouth once kye y furosemide (Lasix) 20 MG tablet furosemide 20 mg tablet TAKE 1 TABLET BY MOUTH EVERY DAY Active take 1 tablet by domingo th every twenty-four hours Lasix 40 MG 1 tablet Orally Once a day Active ganciclovir 0.0015 mg/mg ophthalmic gel (2 sources) Cytomegalovirus Nucleoside Analog DNA Polymerase Inhibitor, Nucleoside Analog Antiviral Start: 12-29-2023 apply 1 drop(s) into the eye(s) five times daily ganciclovir (Zirgan) 0.15 % ophthalmic gel solution Indications: HSV epithelial keratitis Apply 1 drop to left eye 5 (five) times a day 3.5 g 1 12/29/2023 Active 24 hr isosorbide mononitrate 60 mg extended release oral tablet (20 sources) Nitrate Vasodilator Start: 01-26-2020 take 1 mg by mouth once daily in the morning isosorbide mononitrate 60 mg ER Tab mg tab(s), Oral, qAM, Refills(s) 0 Start Date: 01/26/20 Status: Ordered isosorbide monon itrate ER (Imdur) 60 MG 24 hr tablet Active isosorbide monon itrate ER (Imdur) 30 MG 24 hr tablet Isosorbide Mononitrate Active Imdur Active latanoprost (11 sources) Prostaglandin Analog LATANOPROST OP Latanoprost Active take 1 drop(s) into the eye(s) once daily in the evening Latanoprost 0.005 % 1 drop into affected eye in the evening Ophthalmic Once a day Not-Taking 24 hr metoprolol succinate 50 mg extended release oral tablet (15 sources) beta-Adrenergic Oj Start: 06-10-2009 take 1 tablet by mouth once daily metoprolol succinate XL (Toprol-XL) 50 MG 24 hr tablet take 1 tablet (50MG) by ORAL route every day Oral 06/10/2009 Active moxifloxacin 5 mg/ml ophthalmic solution (2 sources) Quinolone Antimicrobial Start: 12-29-2023 moxifloxacin (Vigamox) 0.5 % ophthalmic solution Indications: HSV epithelial keratitis Administer 1 drop into the left eye in the morning and 1 drop at noon and 1 drop in the evening and 1 drop before bedtime. 1 drop four times a day to the right eye starting 3 days prior to surgery. 3 mL 1 12/29/2023 Active Multi Vitamin+ (4 sources) Start: 10-27-2019 Multi Vitamin+ Refill(s) 0 Start Date: 10/27/19 Status: Ordered 24 hr oxybutynin chloride 15 mg extended release oral tablet (13 sources) Cholinergic Muscarinic Antagonist Start: 06-25-2023 take 1 tablet by mouth once daily oxybutynin 15 mg ER Tab 15 mg = 1 tab(s), Oral, Daily, # 90 tab(s), Refills(s) 3, Pharmacy: [facility]/pharmacy #[id number], 164, cm, 08/24/22 10:54:00 EDT, [...] Daily, # 30 tab(s), Refills(s) 11, Pharmacy: [facility]/pharmacy #[id number], 164, cm, 08/04/21 8:56:00 EDT, Height/Length Dosing, 139, kg, 08/04/21 8:56:00 EDT, Weight Dosing Start Date: 08/04/21 Status: Ordered take 1 tablet by domingo every twenty-four hours in the morning oxybutynin XL (Ditropan-XL) 15 MG 24 hr tablet Take 15 mg by mouth in the morning. Do not crush, chew, or split.. Active prednisoLONE acetate 10 mg/ml ophthalmic suspension (2 sources) Corticosteroid Start: 01-04-2024 prednisoLONE acetate (Pred-Forte) 1 % ophthalmic suspension Indications: HSV epithelial keratitis 1 drop, left eye (OS), 3xs/day for 1wk, 2xs/day for 1wk, then daily for 1wk, then stop. 5 mL 01/04/2024 Active tamsulosin hydrochloride 0.4 mg oral capsule (15 sources) alpha-Adrenergic Oj Start: 07-12-2023 take 1 capsule by mouth twice daily tamsulosin 0.4 mg Cap 0.4 mg = 1 cap(s), Oral, BID, # 180 cap(s), Refills(s) 3, Pharmacy: [facility]/pharmacy #[id number], 164, cm, 08/24/22 10:54:00 EDT, Height/Length Dosing, 138, kg, 08/24/22 10:54:00 EDT, Weight Dosing Start Date: 07/12/23 Status: Ordered Start: 06-26-2022 take 1 capsule by mo [facility] twice daily tamsulosin 0.4 mg Cap 0.4 mg = 1 cap(s), Oral, BID, # 180 cap(s), Refills(s) 3, Pharmacy: [facility]/pharmacy #[id number], 164, cm, 02/23/22 11:10:00 EDT, Height/Length Dosing, 139, kg, 02/23/22 11:10:00 EDT, Weight Dosing Start Date: 06/26/22 Status: Ordered Start: 02-23-2022 End: 06-23-2022 take 1 capsule by mouth twice daily tamsulosin 0.4 mg Cap 0.4 mg = 1 cap(s), Oral, BID, X 30 day(s), # 60 cap(s), Refills(s) 3, Pharmacy: [facility]/pharmacy #[id number], 164, cm, 02/23/22 11:10:00 EDT, Height/Length Dosing, 139, kg, 02/23/22 11:10:00 EDT, Weight Dosing Start Date: 02/23/22 Stop Date: 06/23/22 Status: Ordered Start: 11-22-2020 End: 11-17-2021 take 1 capsule by mouth twice daily Flomax 0.4 mg Cap 0.4 mg = 1 cap(s), Oral, BID, X 90 day(s), # 180 cap(s), Refills(s) 3, Pharmacy: [facility]/pharmacy #[id number], 164, cm, 07/26/20 9:40:00 EDT, Height/Length Dosing, 138.5, kg, 07/26/20 9:40:00 EDT, Weight Dosing Start Date: 11/22/20 Stop Date: 11/17/21 Status: Ordered tamsulosin (Flom ax) 0.4 MG 24 hr capsule 1 capsule 1 (one) time each day at the same time. Active 24 hr tolterodine tartrate 4 mg extended release oral capsule (4 sources) Cholinergic Muscarinic Antagonist tolterodine LA (Detrol LA) 4 MG 24 hr capsule 1 capsule 1 (one) time each day at the same time. Active traMADol hydrochloride 50 mg oral tablet (10 sources) Opioid Agonist Start: 3 take 1 tablet by mouth twice daily as needed traMADol HCl 50 MG 1 tablet as needed Orally twice daily Start 01/13 w/ 2RF Jan, Active Start: 10-27-2019 take 50 mg by mouth every four hours Ultram 50 mg, Oral, q4hr, Refills(s) 0 Start Date: 10/27/19 Status: Ordered triamcinolone acetonide 5 mg/ml topical cream (9 sources) Corticosteroid Start: 06-30-2022 Triamcinolone Acetonide 0.5 % 1 application Externally Two times a Week for 30 days Jun, Active triamcinolone (K enalog) 0.5 % cream 1 application. 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, right foot] Onset: 09-28-2022 09-28-2022 Chronic Acute bronchitis (9 sources) Acute bronchitis; Translations: [...] Coronary arteriosclerosis; Translations: [Atherosclerotic heart disease of [place] coronary artery without angina pectoris] Chronic Deficiency [...] Vaccination given; Translations: [Encounter for immunization] Episodic Inflammation; infection of eye (except that caused by tuberculosis or sexually transmitteddisease) (2 sources) Herpes simplex virus epithelial keratitis; 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] Onset: 12-29-2023 12-29-2023 Episodic Malaise and fatigue (14 sources) Other fatigue; Translations: [Fatigue] Onset: 07-05-2013 Episodic Melanomas of skin (9 sources) History of malignant melanoma of the skin; Translations: [Personal history of malignant melanoma of skin] Episodic Mood disorders (4 sources) Depressive disorder; Translations: [Major depressive disorder, single episode, unspecified] Onset: 08-25-2021 08-14-2021 Chronic Mycoses (1 source) Onychomycosis due to dermatophyte ; Translations: [Tinea unguium] 02-21-2024 Episodic Osteoarthritis (2 sources) Osteoarthritis; Translations: [Polyosteoarthritis, unspecified] Chronic Other aftercare (3 sources) Other parts counterman (current) drug therapy; Translations: [OTH BORE MILL OPERATOR FOR PLASTIC CURRENT DRUG THERAPY] Onset: 08-25-2021 Episodic Other aftercare (2 sources) Long-term current use of drug therapy; Translations: [Other senior living (current) drug therapy] Episodic Other and ill-defined [...] cerebral infarction without residual deficits] Episodic Other connective tissue disease (2 sources) Pain in toe; Translations: [Pain in right toe(s)] 02-21-2024 Episodic Other diseases of veins and lymphatics [...] Translations: [Dyspnea, unspecified] Onset: 01-31-2014 Episodic Other nervous system disorders (2 sources) Difficulty walking; Translations: [Difficulty in walking, not elsewhere classified] Onset: 09-28-2022 09-28-2022 Chronic Other non-epithelial cancer of skin (4 sources) [...] malignant neoplasm done] Onset: 10-30-2021 Episodic Other skin disorders (1 source) Dystrophia unguium; Translations: [Nail dystrophy] 02-21-2024 Episodic Other upper respiratory infections (4 sources) [...] Resolved: 01-08-2021 Episodic Other aftercare (1 source) detention (current) use of anticoagulants; Translations: [CUSTODIAL CURRNT USE ANTICOAGULANTS] Onset: 08-29-2021 Episodic Other aftercare (1 source) parts counterman (current) use of antithrombotics/ant iplatelets; Translations: [BORE MILL OPERATOR FOR PLASTIC ANTITHROMBOT/ANTIPL ATLETS] Onset: 08-25-2021 Episodic Other and [...] Range Facility Office Visiton 01-31-2024 Follow-up visit [id number] Ralph Almanzar 1945 M Date Provider Department Center 01/31/2024 [facility] No family history on file Level of Service:10068 [place] OFFICE/OUTPATIENT ESTABLISHED MOD MDM 30 MIN Normal [facility] Patient Educationon 08-31-19 24 Patient Education Urology [...] Follow these instructions at home: ? Take iaty-kfw-rxadhas and prescription medicines only as told by [...] the medicine (more content not included)... Normal [facility] Urology Office/Clinic Noteon 08-31-2023 Urology Office/Clinic Note [...] with voice recognition artificial intelligence software, specifically [email or web address] and or [employer] Substitutions may have occurred due to the [...] Urnls Dip Stick Auto w/o Microscopy POC 56056 3. 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 Normal [facility] Comment on above: Result Comment: Elec tronically Signed By: ISAAC Huston APRN, Orquidea Blue\.br\Date and Time Signed: 08/31/23 09:08 EDT RAD - MISCon 08-17-2023 RAD - MISC [id number] IFF Normal [facility] BNPon 02-17-2022 Natriuretic peptide B (Bld) [Mass/Vol] 330.0 pg/mL Normal <=1,800.0 [facility] Comment on above: Performed By: #### B BACKEND JAVA DEVELOPER, TSH, BMP #### [facility] [address] [place] [address] Dr. Temo Mckeon CBC AUTO DIFFon 02-17-2022 BASO # 0.1 103/ul Normal 0.0-0.1 [facility] Comment on above: Performed By: #### C BC #### [facility] [address] [place] [address] Dr. Temo Mckeon Basophils/100 WBC (Bld) 0.4 % Normal 0.2-2.0 [facility] Comment on above: Performed By: #### C BC #### [facility] [address] [place] [address] Dr. Temo Mckeon EO # 0.3 103/ul Normal 0.0-0.7 [facility] Comment on above: Performed By: #### C BC #### [facility] [address] [place] [address] Dr. Temo Mckeon Eosinophils/100 WBC (Bld) 2.8 % Normal 0.9-7.0 [facility] Comment on above: Performed By: #### C BC #### [facility] [address] [place] [address] Dr. Temo Mckeon Erythrocyte distribution width (RBC) [Ratio] 13.5 % Normal 11.0-15.0 [facility] Comment on above: Performed By: #### C BC #### [facility] [address] [address] [address] Temo Mckeon Hematocrit (Bld) [Volume fraction] 38.5 % Critically low 42.0-54.0 [facility] Comment on above: Performed By: #### C BC #### [facility] [address] [place] [address] Dr. Temo Mckeon Hemoglobin (Bld) [Mass/Vol] 12.5 g/dL Critically low 14.0-18.0 [facility] Comment on above: Performed By: #### C BC #### [facility] [address] [place] [address] Dr. Temo Mckeon IG # 0.11 10e3/ul Critically high 0.00-0.03 [facility] Comment on above: Performed By: #### C BC #### [facility] [address] [place] [address] Dr. Temo Mckeon IG % 0.9 % Critically high 0.0-0.5 [facility] Comment on above: Performed By: #### C BC #### [facility] [address] [place] [address] Dr. Temo Mckeon LYMPH # 2.1 103/ul Normal 1.2-3.8 [facility] Comment on above: Performed By: #### C BC #### [facility] [address] [place] [address] Dr. Temo Mckeon Lymphocytes/100 WBC (Bld) 17.5 % Critically low 20.5-60.0 [facility] Comment on above: Performed By: #### C BC #### [facility] [address] [place] [address] Dr. Temo Mckeon MANUAL DIFF REQ NO Normal [facility] Comment on above: Performed By: #### C BC #### [facility] [address] [place] [address] Dr. Temo Mckeon MCH (RBC) [Entitic mass] 30.6 pg Normal 25.9-34.0 [facility] Comment on above: Performed By: #### C BC #### [facility] [address] [address] [address] Temo Mckeon MCHC (RBC) [Mass/Vol] 32.5 g/dL Normal 29.9-35.2 [facility] Comment on above: Performed By: #### C BC #### [facility] [address] [address] [address] Temo Mckeon MCV (RBC) [Entitic vol] 94.1 fL Critically high 80.0-94.0 [facility] Comment on above: Performed By: #### C BC #### [facility] [address] [address] [address] Temo Mckeon MONO # 0.9 103/ul Critically high 0.3-0.8 [facility] Comment on above: Performed By: #### C BC #### [facility] [address] [place] [address] Dr. Temo Mckeon Monocytes/100 WBC (Bld) 7.9 % Normal 1.7-12.0 [facility] Comment on above: Performed By: #### C BC #### [facility] [address] [place] [address] Dr. Temo Mckeon NEUT # 8.4 103/ul Critically high 1.4-6.5 [facility] Comment on above: Performed By: #### C BC #### [facility] [address] [place] [address] Dr. Temo Mckeon Neutrophils/100 WBC (Bld) 70.5 % Normal 43.0-75.0 [facility] Comment on above: Performed By: #### C BC #### [facility] [address] [place] [address] Dr. Temo Mckeon Platelet mean volume (Bld) [Entitic vol] 10.5 fL Normal 9.5-13.5 [facility] Comment on above: Performed By: #### C BC #### [facility] [address] [place] [address] Dr. Temo Mckeon PLT 172 103/ul Normal 150-450 [facility] Comment on above: Performed By: #### C BC #### [facility] [address] [address] [address] Temo Mckeon RBC 4.09 106/ul Critically low 4.70-6.10 [facility] Comment on above: Performed By: #### C BC #### [facility] [address] [address] [address] Temo Mckeon WBC 11.9 103/ul Critically high 4.0-11.0 [facility] Comment on above: Performed By: #### C BC #### [facility] [address] [address] [address] Temo Mckeon PROF CHEM 8 (BAS METB)on Anion gap [Moles/Vol] 14.2 mmol/L Normal [facility] Comment on above: Performed By: #### B BACKEND JAVA DEVELOPER, TSH, BMP #### [facility] [address] [place] [address] Dr. Temo Mckeon Calcium [Mass/Vol] 9.1 mg/dL Normal 8.5-10.1 [facility] Comment on above: Performed By: #### B BACKEND JAVA DEVELOPER, TSH, BMP #### [facility] [address] [address] [address] Temo Mckeon Chloride [Moles/Vol] 105 mmol/L Normal 98-107 [facility] Comment on above: Performed By: #### B BACKEND JAVA DEVELOPER, TSH, BMP #### [facility] [address] [address] [address] Temo Mckeon CO2 [Moles/Vol] 25.3 mmol/L Normal 21.0-32.0 [facility] Comment on above: Performed By: #### B BACKEND JAVA DEVELOPER, TSH, BMP #### [facility] [address] [address] [address] Temo Mckeon Creatinine [Mass/Vol] 1.72 mg/dL Critically high 0.70-1.30 [facility] Comment on above: Performed By: #### B BACKEND JAVA DEVELOPER, TSH, BMP #### [facility] [address] [address] [address] Temo Mckeon EGFR-AF DOMINICAN 47 mL/min/1.73m2 Critically low >=60 [facility] Comment on above: Performed By: #### B BACKEND JAVA DEVELOPER, TSH, BMP #### [facility] [address] [place] [address] Dr. Temo Mckeon EGFR-NON AF DOMINICAN 39 mL/min/1.73m2 Critically low >=60 [facility] Comment on above: Performed By: #### B BACKEND JAVA DEVELOPER, TSH, BMP #### [facility] [address] [place] [address] Dr. Temo Mckeon Glucose [Mass/Vol] 134 mg/dL Critically high 74-106 [facility] Comment on above: Performed By: #### B BACKEND JAVA DEVELOPER, TSH, BMP #### [facility] [address] [place] [address] Dr. Temo Mckeon Potassium [Moles/Vol] 4.5 mmol/L Normal 3.5-5.1 [facility] Comment on above: Performed By: #### B BACKEND JAVA DEVELOPER, TSH, BMP #### [facility] [address] [place] [address] Dr. Temo Mckeon Sodium [Moles/Vol] 140 mmol/L Normal 136-145 [facility] Comment on above: Performed By: #### B BACKEND JAVA DEVELOPER, TSH, BMP #### [facility] [address] [place] [address] Dr. Temo Mckeon Urea nitrogen [Mass/Vol] 36.0 mg/dL Critically high 7.0-18.0 [facility] Comment on above: Performed By: #### B BACKEND JAVA DEVELOPER, TSH, BMP #### [facility] [address] [place] [address] Dr. Temo Mckeon Urea nitrogen/Creatinine [Mass ratio] 20.9 mg/mg Normal [facility] Comment on above: Performed By: #### B BACKEND JAVA DEVELOPER, TSH, BMP #### [facility] [address] [place], [place] [address] Dr. Temo Mckeon TSHon 02-17-2022 TSH 1.708 uIU/mL Normal 0.358-3.740 [facility] Comment on above: Performed By: #### B BACKEND JAVA DEVELOPER, TSH, BMP #### [facility] [address] [address] [address] Temo Mckeon XR KUB 1 VIEWon [...] RADU CHRISTENSEN Date: 2022-02-17 11:43 Normal [facility] METHYLMALONIC ACID (MMA)on 0 11-01-2021 Methylmalonic Acid, Serum 205 nmol/L Normal 0-378 [facility] Comment on above: Performed By: #### C BC #### [facility] [address] [place] [address] Dr. Temo Mckeon FOLATE ([facility])on Folate >20.0 Normal >3.0 [facility] Comment on above: Result Comment: A rum folate concentration of less than 3.1 ng/mL is considered to represent clinical deficiency. Performed By: #### B MP, ALT, LIPID #### [facility] [address] [address] [address] Temo Mckeon CBC AUTO DIFFon 10-29-2021 BASO # 0.1 103/ul Normal 0.0-0.1 [facility] Comment on above: Performed By: #### C BC #### [facility] [address] [address] [address] Temo Mckeon Basophils/100 WBC (Bld) 0.5 % Normal 0.2-2.0 [facility] Comment on above: Performed By: #### C BC #### [facility] [address] [place] [address] Dr. Temo Mckeon EO # 0.3 103/ul Normal 0.0-0.7 [facility] Comment on above: Performed By: #### C BC #### [facility] [address] [place] [address] Dr. Temo Mckeon Eosinophils/100 WBC (Bld) 3.3 % Normal 0.9-7.0 [facility] Comment on above: Performed By: #### C BC #### [facility] [address] [place] [address] Dr. Temo Mckeon Erythrocyte distribution width (RBC) [Ratio] 13.3 % Normal 11.0-15.0 [facility] Comment on above: Performed By: #### C BC #### [facility] [address] [place] [address] Dr. Temo Mckeon Hematocrit (Bld) [Volume fraction] 40.4 % Critically low 42.0-54.0 [facility] Comment on above: Performed By: #### C BC #### [facility] [address] [place] [address] Dr. Temo Mckeon Hemoglobin (Bld) [Mass/Vol] 13.4 g/dL Critically low 14.0-18.0 [facility] Comment on above: Performed By: #### C BC #### [facility] [address] [place] [address] Dr. Temo Mckeon IG # 0.06 10e3/ul Critically high 0.00-0.03 [facility] Comment on above: Performed By: #### C BC #### [facility] [address] [place] [address] Dr. Temo Mckeon IG % 0.6 % Critically high 0.0-0.5 [facility] Comment on above: Performed By: #### C BC #### [facility] [address] [place] [address] Dr. Temo Mckeon LYMPH # 2.2 103/ul Normal 1.2-3.8 [facility] Comment on above: Performed By: #### C BC #### [facility] [address] [place] [address] Dr. Temo Mckeon Lymphocytes/100 WBC (Bld) 22.6 % Normal 20.5-60.0 [facility] Comment on above: Performed By: #### C BC #### [facility] [address] [place] [address] Dr. Temo Mckeon MANUAL DIFF REQ NO Normal [facility] Comment on above: Performed By: #### C BC #### [facility] [address] [place] [address] Dr. Temo Mckeon MCH (RBC) [Entitic mass] 30.8 pg Normal 25.9-34.0 [facility] Comment on above: Performed By: #### C BC #### [facility] [address] [place] [address] Dr. Temo Mckeon MCHC (RBC) [Mass/Vol] 33.2 g/dL Normal 29.9-35.2 [facility] Comment on above: Performed By: #### C BC #### [facility] [address] [place] [address] Dr. Temo Mckeon MCV (RBC) [Entitic vol] 92.9 fL Normal 80.0-94.0 [facility] Comment on above: Performed By: #### C BC #### [facility] [address] [place] [address] Dr. Temo Mckeon MONO # 0.7 103/ul Normal 0.3-0.8 [facility] Comment on above: Performed By: #### C BC #### [facility] [address] [place] [address] Dr. Temo Mckeon Monocytes/100 WBC (Bld) 7.6 % Normal 1.7-12.0 [facility] Comment on above: Performed By: #### C BC #### [facility] [address] [place] [address] Dr. Temo Mckeon NEUT # 6.2 103/ul Normal 1.4-6.5 [facility] Comment on above: Performed By: #### C BC #### [facility] [address] [address] [address] Temo Mckeon Neutrophils/100 WBC (Bld) 65.4 % Normal 43.0-75.0 [facility] Comment on above: Performed By: #### C BC #### [facility] [address] [address] [address] Temo Mckeon Platelet mean volume (Bld) [Entitic vol] 10.5 fL Normal 9.5-13.5 [facility] Comment on above: Performed By: #### C BC #### [facility] [address] [address] [address] Temo Mckeon PLT 169 103/ul Normal 150-450 [facility] Comment on above: Performed By: #### C BC #### [facility] [address] [place] [address] Dr. Temo Mckeon RBC 4.35 106/ul Critically low 4.70-6.10 [facility] Comment on above: Performed By: #### C BC #### [facility] [address] [address] [address] Temo Mckeon WBC 9.5 103/ul Normal 4.0-11.0 [facility] Comment on above: Performed By: #### C BC #### [facility] [address] [place] [address] Dr. Temo Mckeon FERRITINon 10-29-2021 Ferritin [Mass/Vol] 423.0 ng/mL Critically high 26.0-388.0 [facility] Comment on above: Performed By: #### C BC #### [facility] [address] [address] [address] Temo Mckeon IRON AND TIBCon 10-29-2021 % SATURATION 25.6 % Normal [facility] Comment on above: Performed By: #### C BC #### [facility] [address] [address] [address] Temo Mckeon Iron [Mass/Vol] 79.0 ug/dL Normal 65.0-175.0 [facility] Comment on above: Performed By: #### C BC #### [facility] [address] [address] [address] Temo Mckeon TIBC DIRECT 308.0 ug/dL Normal 250.0-450.0 [facility] Comment on above: Performed By: #### C BC #### [facility] [address] [address] [address] Temo Mckeon LIPID PROFILEon 10-29-2021 CHOL-HDL RATIO NORM SEE BELOW Normal [facility] Comment on above: Result Comment: 3.3 - 4.4 LOW RISK 4.4 - 7.1 AVERAGE RISK 7.1 - 11.0 MODERATE RISK >11.0 HIGH RISK Performed By: #### B MP, ALT, LIPID #### [facility] [address] [address] [address] Temo Mckeon Cholesterol [Mass/Vol] 93 mg/dL Normal <=200 [facility] Comment on above: Performed By: #### B MP, ALT, LIPID #### [facility] [address] [address] [address] Temo Mckeon Cholesterol in HDL [Mass/Vol] 40 mg/dL Normal 40-60 [facility] Comment on above: Performed By: #### B MP, ALT, LIPID #### [facility] [address] [address] [address] Temo Mckeon Cholesterol in LDL [Mass/Vol] 35.4 mg/dL Normal [facility] Comment on above: Performed By: #### B MP, ALT, LIPID #### [facility] [address] [address] [address] Temo Mckeon Cholesterol.total/C holesterol in HDL [Mass ratio] 2.3 {ratio} Normal [facility] Comment on above: Performed By: #### B MP, ALT, LIPID #### [facility] [address] [address] [address] Temo Mckeon HDL NORMAL > or = 60 mg/dl - LO W CARDIOVASCULAR RISK <40 mg/dl - HIGH CARDIOVASCULAR RISK Normal [facility] Comment on above: Performed By: #### B MP, ALT, LIPID #### [facility] [address] [address] [address] Temo Mckeon LDL CALC NORMAL SEE BELOW Normal [facility] Comment on above: Result Comment: <100 mg/dl OPTIMAL 100 - 129 mg/dl NEAR OR ABOVE OPTIMAL 130 - 159 mg/dl BORDERLINE HIGH 160 - 189 mg/dl HIGH >190 mg/dl VERY HIGH Performed By: #### B MP, ALT, LIPID #### [facility] [address] [address] [address] Temo Mckeon Triglyceride [Mass/Vol] 88 mg/dL Normal <=150 [facility] Comment on above: Performed By: #### B MP, ALT, LIPID #### [facility] [address] [place] [address] Dr. Temo Mckeon VLDL CALC 17.6 mg/dL Normal [facility] Comment on above: Performed By: #### B MP, ALT, LIPID #### [facility] [address] [place] [address] Dr. Temo Mckeon PROF CHEM 8 (BAS METB)on Anion gap [Moles/Vol] 14.6 mmol/L Normal [facility] Comment on above: Performed By: #### B MP, ALT, LIPID #### [facility] [address] [address] [address] Temo Mckeon Calcium [Mass/Vol] 8.8 mg/dL Normal 8.5-10.1 [facility] Comment on above: Performed By: #### B MP, ALT, LIPID #### [facility] [address] [place] [address] Dr. Temo Mckeon Chloride [Moles/Vol] 106 mmol/L Normal 98-107 [facility] Comment on above: Performed By: #### B MP, ALT, LIPID #### [facility] [address] [place] [address] Dr. Temo Mckeon CO2 [Moles/Vol] 23.8 mmol/L Normal 21.0-32.0 [facility] Comment on above: Performed By: #### B MP, ALT, LIPID #### [facility] [address] [place], [place] [id number] Dr. Temo Mckeon Creatinine [Mass/Vol] 1.57 mg/dL Critically high 0.70-1.30 [facility] Comment on above: Performed By: #### B MP, ALT, LIPID #### [facility] [address] [place] [address] Dr. Temo Mckeon EGFR-AF DOMINICAN 52 mL/min/1.73m2 Critically low >=60 [facility] Comment on above: Performed By: #### B MP, ALT, LIPID #### [facility] [address] [place] [address] Dr. Temo Mckeon EGFR-NON AF DOMINICAN 43 mL/min/1.73m2 Critically low >=60 [facility] Comment on above: Performed By: #### B MP, ALT, LIPID #### [facility] [address] [place] [address] Dr. Temo Mckeon Glucose [Mass/Vol] 148 mg/dL Critically high 74-106 [facility] Comment on above: Performed By: #### B MP, ALT, LIPID #### [facility] [address] [place] [address] Dr. Temo Mckeon Potassium [Moles/Vol] 4.4 mmol/L Normal 3.5-5.1 [facility] Comment on above: Performed By: #### B MP, ALT, LIPID #### [facility] [address] [place] [address] Dr. Temo Mckeon Sodium [Moles/Vol] 140 mmol/L Normal 136-145 [facility] Comment on above: Performed By: #### B MP, ALT, LIPID #### [facility] [address] [place] [address] Dr. Temo Mckeon Urea nitrogen [Mass/Vol] 31.0 mg/dL Critically high 7.0-18.0 [facility] Comment on above: Performed By: #### B MP, ALT, LIPID #### [facility] [address] [place] [address] Dr. Temo Mckeon Urea nitrogen/Creatinine [Mass ratio] 19.7 mg/mg Normal [facility] Comment on above: Performed By: #### B MP, ALT, LIPID #### [facility] [address] [place] [address] Dr. Temo Mckeon SGPTon 10-29-2021 ALT [Catalytic activity/Vol] 39 U/L Normal 16-63 [facility] Comment on above: Performed By: #### B MP, ALT, LIPID #### [facility] [address] [place], [place] [id number] Dr. Temo Mckeon VITAMIN B12on 10-29-2021 Cobalamin (Vitamin B12) [Mass/Vol] 675.0 pg/mL Normal 193.0-986.0 [facility] Comment on above: Performed By: #### C BC #### [facility] [address] [place] [address] Dr. Temo Mckeon XR KUB 1 VIEWon [...] MARTA HALE Date: 2021-08-29 19:34 Normal [facility] CBC AUTO DIFFon 08-21-2021 BASO # 0.0 103/ul Normal 0.0-0.1 [facility] Comment on above: Performed By: #### C BC #### [facility] [address] [place] [address] Dr. Temo Mckeon Basophils/100 WBC (Bld) 0.3 % Normal 0.2-2.0 [facility] Comment on above: Performed By: #### C BC #### [facility] [address] [place] [address] Dr. Temo Mckeon EO # 0.3 103/ul Normal 0.0-0.7 [facility] Comment on above: Performed By: #### C BC #### [facility] [address] [place] [address] Dr. Temo Mckeon Eosinophils/100 WBC (Bld) 3.2 % Normal 0.9-7.0 [facility] Comment on above: Performed By: #### C BC #### [facility] [address] [place] [address] Dr. Temo Mckeon Erythrocyte distribution width (RBC) [Ratio] 13.5 % Normal 11.0-15.0 [facility] Comment on above: Performed By: #### C BC #### [facility] [address] [place] [address] Dr. Temo Mckeon Hematocrit (Bld) [Volume fraction] 38.8 % Critically low 42.0-54.0 [facility] Comment on above: Performed By: #### C BC #### [facility] [address] [place] [address] Dr. Temo Mckeon Hemoglobin (Bld) [Mass/Vol] 12.8 g/dL Critically low 14.0-18.0 [facility] Comment on above: Performed By: #### C BC #### [facility] [address] [place] [address] Dr. Temo Mckeon IG # 0.05 10e3/ul Critically high 0.00-0.03 [facility] Comment on above: Performed By: #### C BC #### [facility] [address] [place] [address] Dr. Temo Mckeon IG % 0.5 % Normal 0.0-0.5 [facility] Comment on above: Performed By: #### C BC #### [facility] [address] [place] [address] Dr. Temo Mckeon LYMPH # 1.8 103/ul Normal 1.2-3.8 [facility] Comment on above: Performed By: #### C BC #### [facility] [address] [place] [address] Dr. Temo Mckeon Lymphocytes/100 WBC (Bld) 19.6 % Critically low 20.5-60.0 [facility] Comment on above: Performed By: #### C BC #### [facility] [address] [place] [address] Dr. Temo Mckeon MANUAL DIFF REQ NO Normal [facility] Comment on above: Performed By: #### C BC #### [facility] [address] [place] [address] Dr. Temo Mckeon MCH (RBC) [Entitic mass] 31.1 pg Normal 25.9-34.0 [facility] Comment on above: Performed By: #### C BC #### [facility] [address] [place] [address] Dr. Temo Mckeon MCHC (RBC) [Mass/Vol] 33.0 g/dL Normal 29.9-35.2 [facility] Comment on above: Performed By: #### C BC #### [facility] [address] [place] [address] Dr. Temo Mckeon MCV (RBC) [Entitic vol] 94.4 fL Critically high 80.0-94.0 [facility] Comment on above: Performed By: #### C BC #### [facility] [address] [place] [address] Dr. Temo Mckeon MONO # 0.7 103/ul Normal 0.3-0.8 [facility] Comment on above: Performed By: #### C BC #### [facility] [address] [place] [address] Dr. Temo Mckeon Monocytes/100 WBC (Bld) 7.5 % Normal 1.7-12.0 [facility] Comment on above: Performed By: #### C BC #### [facility] [address] [place] [address] Dr. Temo Mckeon NEUT # 6.4 103/ul Normal 1.4-6.5 [facility] Comment on above: Performed By: #### C BC #### [facility] [address] [place] [address] Dr. Temo Mckeon Neutrophils/100 WBC (Bld) 68.9 % Normal 43.0-75.0 [facility] Comment on above: Performed By: #### C BC #### [facility] [address] [address] [address] Temo Mckeon Platelet mean volume (Bld) [Entitic vol] 10.2 fL Normal 9.5-13.5 [facility] Comment on above: Performed By: #### C BC #### [facility] [address] [address] [address] Temo Mckeon PLT 160 103/ul Normal 150-450 [facility] Comment on above: Performed By: #### C BC #### [facility] [address] [address] [address] Temo Mckeon RBC 4.11 106/ul Critically low 4.70-6.10 [facility] Comment on above: Performed By: #### C BC #### [facility] [address] [address] [address] Temo Mckeon WBC 9.3 103/ul Normal 4.0-11.0 [facility] Comment on above: Performed By: #### C BC #### [facility] [address] [address] [address] Temo Mckeon Covid-19 PCR (CVDTB)on 08-08 SARS-CoV-2 (COVID-19) RNA PRADEEP+probe Ql (Unsp spec) Not detected Normal NOT DETECTED [facility] Comment on above: Result Comment: This test is not yet approved or cleared by the [place] FDA. When there are no FDA-approved or cleared tests available, and other criteria are met, FDA can make tests available under an emergency access mechanism called an Emergency Use Authorization (EUA). The EUA for this test is supported by the Insurance Claims Specialist of Health and Human Service's (HHS's) declaration [...] SARS-CoV-2. Performed By: #### C BC #### [facility] [address] [address] [address] Temo Mckeon PROF CHEM 8 (BAS METB)on Anion gap [Moles/Vol] 12.4 mmol/L Normal [facility] Comment on above: Performed By: #### C BC #### [facility] [address] [place] [address] Dr. Temo Mckeon Calcium [Mass/Vol] 8.6 mg/dL Normal 8.5-10.1 [facility] Comment on above: Performed By: #### C BC #### [facility] [address] [place] [address] Dr. Temo Mckeon Chloride [Moles/Vol] 105 mmol/L Normal 98-107 [facility] Comment on above: Performed By: #### C BC #### [facility] [address] [place] [address] Dr. Temo Mckeon CO2 [Moles/Vol] 27.0 mmol/L Normal 22.0-30.0 [facility] Comment on above: Performed By: #### C BC #### [facility] [address] [place] [address] Dr. Temo Mckeon Creatinine [Mass/Vol] 1.57 mg/dL Critically high 0.66-1.25 [facility] Comment on above: Performed By: #### C BC #### [facility] [address] [place] [address] Dr. Temo Mckeon EGFR-AF DOMINICAN 52 mL/min/1.73m2 Critically low >=60 [facility] Comment on above: Performed By: #### C BC #### [facility] [address] [place] [address] Dr. Temo Mckeon EGFR-NON AF DOMINICAN 43 mL/min/1.73m2 Critically low >=60 [facility] Comment on above: Performed By: #### C BC #### [facility] [address] [place] [address] Dr. Temo Mckeon Glucose [Mass/Vol] 145 mg/dL Critically high 74-106 [facility] Comment on above: Performed By: #### C BC #### [facility] [address] [address] [address] Temo Mckeon Potassium [Moles/Vol] 4.4 mmol/L Normal 3.4-5.0 [facility] Comment on above: Performed By: #### C BC #### [facility] [address] [address] [address] Temo Mckeon Sodium [Moles/Vol] 140 mmol/L Normal 137-145 [facility] Comment on above: Performed By: #### C BC #### [facility] [address] [address] [address] Temo Mckeon Urea nitrogen [Mass/Vol] 32.0 mg/dL Critically high 7.0-18.0 [facility] Comment on above: Performed By: #### C BC #### [facility] [address] [place] [address] Dr. Temo Mckeon Urea nitrogen/Creatinine [Mass ratio] 20.4 mg/mg Normal [facility] Comment on above: Performed By: #### C BC #### [facility] [address] [place] [address] Dr. Temo Mckeon PROTIMEon 08-21-2021 INR Coag (PPP) [Relative time] 1.04 {INR} Normal [facility] Comment on above: Performed By: #### C BC #### [facility] [address] [place] [address] Dr. Temo Mckeon INR GUIDELINES SEE BELOW Normal [facility] Comment on above: Result Comment: APPLE RED INR: 2.0 - 3.0 CONDITIONS NOT LISTED BELOW 2.5 - 3.5 FOR PROSTHETIC HEART VALVE REPLACEMENT 2.5 - 3.5 RECURRENT THROMBOSIS Performed By: #### C BC #### [facility] [address] [place] [address] Dr. Temo Mckeon PT Coag (PPP) [Time] 11.2 s Normal 9.0-11.6 [facility] Comment on above: Performed By: #### C BC #### [facility] [address] [place] [address] [address] [address] Temo Mckeon PTTon 08-21-2021 aPTT Coag (Bld) [Time] 25.2 s Normal 22.3-36.2 [facility] Comment on above: Performed By: #### C BC #### [facility] [address] [place] [address] Dr. Temo Mckeon XR KUB 1 VIEWon [...] TANISHA MATOS Date: 2021-07-29 09:21 Normal [facility] Covid-19 PCR (CVDTB)on 04-10 SARS-CoV-2 (COVID-19) RNA PRADEEP+probe Ql (Unsp spec) Not detected Normal NOT DETECTED [facility] Comment on above: Result Comment: This test is not yet approved or cleared by the [place] FDA. When there are no FDA-approved or cleared tests available, and other criteria are met, FDA can make tests available under an emergency access mechanism called an Emergency Use Authorization (EUA). The EUA for this test is supported by the [place] of Health and Human Service's (HHS's) declaration [...] SARS-CoV-2. Performed By: #### C VDTBH #### [facility] [address] [address] angio chest PE protocolon 03-07-2021 CT angio chest PE protocol [facility] [address] [place] [id number] Scan Report Signed Patient: Mason Almanzar MR#: [id number] 71 : 1945 Acct:[id number] Age/Sex: 75 / M ADM Date: 03/07/21 Loc: CT Room: Type: [facility] Attending Dr: Erika Bender MD Ordering Provider: [...] Balwinder Zambrano M.D.03/07/2021 2:01 PM Dictation Location: [place] [address] Transcribed By: [facility] 03/07/21 1401 Dictated By: Balwinder Zambrano DO 03/07/21 1359 Signed By: 03/07/21 1401 Normal [facility] ECH echo transthoracicon ECH echo transthoracic [facility] Main [address] [address] Echocardiogram Signed Patient: Mason Almanzar MR#: [id number] 71 : 1945 Acct:[id number] Age/Sex: 75 / M ADM Date: 03/07/21 Loc: [place] Room: Type: [facility] Attending Dr: Erika Bender MD Ordering Provider: [...] RVSP(TR): 25.3 mmHg (18-35mmHg) MV E max rafael: 68.1 cm/sec(0.8-1.3m/s) MV A max rafael: 70.3 cm/sec(0.0-0.0m/s) MV E/A: 0.97 (<1.5) MMode/2D Measurements Calculations RVDd: 3.3 cm FS: 36.7 % Ao root area: LVLd ap4: 6.8 cm RV S Rafael: EDV(Teich): 13.5 cm2 EDV(MOD-sp4): 12.0 cm/sec 115.2 [...] med: 9.9 233.1 cm/sec2 __ MR max rafael: TV max PG: TR max rafael: 175.1 cm/sec 20.0 mmHg 225.3 cm/sec MR max PG: TR max P.3 mmHg 20.3 mmHg RAP systole: 5.0 mmHg Transcribed By: JULISSA 03/07/21 1449 Dictated By: Genesis Thomas DO 03/07/21 1351 Signed By: 03/07/21 1449 [facility] ISTAT XRay CREon 03-07-2021 Creatinine [Mass/Vol] 1.5 mg/dL High 0.6-1.3 [facility] Comment on above: Result Comment: ER/E SD physician is notified/shown all ISTAT results. Critical values may be confirmed by laboratory testing if deemed necessary by ER attending doctor. Performed By: #### I SCRE #### [address] Point of Care testing , ISTAT GFR ( 55 [facility] Comment on above: Result Comment: GFR estimated reference range: According to KDOQI guidelines, <60 ml/min/1.73m2 is sufficient to diagnose a patient with chronic kidney disease. PERFORMED BY: [place] [address] PATHOLOGIST REALTIME CAPTIONER POOJA MYERS M.D. Performed By: #### I SCRE #### [address] Point of Care testing , ISTAT GFR (Non- Am 46 [facility] Comment on above: Performed By: #### I SCRE #### [address] Point of Care testing , Vital Signs Date Time Vital Sign Value Performing Clinician Facility 02-21-2024 09: Body height 165.1 cm Claudette Balderrama DPM Work Phone: [facility] 02-21-2024 09:11-0400 Body mass index (BMI) [Ratio] 49.92 kg/m2 Claudette Balderrama DPM Work Phone: [facility] 02-21-2024 09:11-0400 Body weight 136.08 kg Claudette Balderrama [facility] Work Phone: [facility] 02-01-2023 09:30-0400 Body height 162.56 cm Leo Ball Other [employer] Other 02-01-2023 09:30-0400 Body mass index (BMI) [Ratio] 49.6 kg/m2 Leo Ball Other [employer] Other 02-01-2023 09:30-0400 Body weight 131.09 kg Leo Ball Other [employer] Other 02-01-2023 09:30-0400 Diastolic blood pressure 83 mm[Hg] Leo Ball Other [employer] Other 02-01-2023 09:30-0400 Respiratory rate 20 /min Leo Ball Other [employer] Other 02-01-2023 09:30-0400 SaO2% (BldA) [Mass fraction] 97 % Leo Ball Other [employer] Other 02-01-2023 09:30-0400 Systolic blood pressure 147 mm[Hg] Leo Ball Other [employer] Other 10-30-2022 09:00-0400 Body height 162.56 cm Leo Ball Other [employer] Other 10-30-2022 09:00-0400 Body mass index (BMI) [Ratio] 50.67 kg/m2 Leo Ball Other [employer] Other 10-30-2022 09:00-0400 Body weight 133.9 kg Leo Ball Other [employer] Other 10-30-2022 09:00-0400 Diastolic blood pressure 68 mm[Hg] Leo Ball Other [employer] Other 10-30-2022 09:00-0400 Respiratory rate 20 /min Leo Ball Other [employer] Other 10-30-2022 09:00-0400 SaO2% (BldA) [Mass fraction] 98 % Leo Ball Other [employer] Other 10-30-2022 09:00-0400 Systolic blood pressure 121 mm[Hg] Leo Ball Other [employer] Other 08-24-2022 10:32-0400 Blood Pressure Location Dominique ESTRELLA [facility] 08-24-2022 10:32-0400 Diastolic blood pressure 73 mm[Hg] Dominique ESTRELLA [facility] 08-24-2022 10:32-0400 Heart rate 59 /min Dominique ESTRELLA [facility] 08-24-2022 10:32-0400 Respiratory rate 16 /min Dominique ESTRELLA [facility] 08-24-2022 10:32-0400 Systolic blood pressure 125 mm[Hg] Dominique ESTRELLA [facility] 06-30-2022 09:00-0500 Body height 162.56 cm Leo Ball Other [employer] Other 06-30-2022 09:00-0500 Body mass index (BMI) [Ratio] 51.52 kg/m2 Leo Ball Other [employer] Other 06-30-2022 09:00-0500 Body weight 136.17 kg Leo Ball Other [employer] Other 06-30-2022 09:00-0500 Diastolic blood pressure 84 mm[Hg] Leo Ball Other [employer] Other 06-30-2022 09:00-0500 Respiratory rate 20 /min Leo Ball Other [employer] Other 06-30-2022 09:00-0500 Systolic blood pressure 128 mm[Hg] Leo Ball Other [employer] Other 02-23-2022 11:07-0400 Blood Pressure Location Dominique ESTRELLA [facility] 02-23-2022 11:07-0400 Diastolic blood pressure 74 mm[Hg] Dominique ESTRELLA [facility] 02-23-2022 11:07-0400 Heart rate 76 /min Dominique ESTRELLA [facility] 02-23-2022 11:07-0400 Respiratory rate 16 /min Dominique ESTRELLA [facility] 02-23-2022 11:07-0400 Systolic blood pressure 128 mm[Hg] Dominique ESTRELLA [facility] 08-04-2021 08:51-0400 Blood Pressure Location Dominique ESTRELLA [facility] 08-04-2021 08:51-0400 Diastolic blood pressure 72 mm[Hg] Dominique ESTRELLA [facility] 08-04-2021 08:51-0400 Heart rate 63 /min Dominique ESTRELLA [facility] 08-04-2021 08:51-0400 Respiratory rate 16 /min Dominique ESTRELLA [facility] 08-04-2021 08:51-0400 Systolic blood pressure 121 mm[Hg] Dominique ESTRELLA [facility] 04-01-2021 12:45-0500 Body height 162.56 cm Erika Bender Other [employer] Other 04-01-2021 12:45-0500 Body mass index (BMI) [Ratio] 51.15 kg/m2 Fitojamarcus Bender Other [employer] Other 04-01-2021 12:45-0500 Body temperature 97.6 [degF] Erika Bender Other [employer] Other 04-01-2021 12:45-0500 Body weight 135.17 kg Erika Bender Other [employer] Other 04-01-2021 12:45-0500 Diastolic blood pressure 68 mm[Hg] Erika Bender Other [employer] Other 04-01-2021 12:45-0500 Respiratory rate 20 /min Erika Bender Other [employer] Other 04-01-2021 12:45-0500 SaO2% (BldA) [Mass fraction] 97 % Erika Avilaban Other [employer] Other 04-01-2021 12:45-0500 Systolic blood pressure 140 mm[Hg] Erika Chaban Other [employer] Other 03-04-2021 16:15-0400 Body height 162.56 cm Erika Avilaban Other [employer] Other 03-04-2021 16:15-0400 Body mass index (BMI) [Ratio] 51.15 kg/m2 Erika Avilaban Other [employer] Other 03-04-2021 16:15-0400 Body temperature 98.3 [degF] Erika Avilaban Other [employer] Other 03-04-2021 16:15-0400 Body weight 135.17 kg Erika Avilaban Other [employer] Other 03-04-2021 16:15-0400 Diastolic blood pressure 68 mm[Hg] Erika Avilaban Other [employer] Other 03-04-2021 16:15-0400 Respiratory rate 20 /min Erika Avilaban Other [employer] Other 03-04-2021 16:15-0400 SaO2% (BldA) [Mass fraction] 97 % Erika Avilaban Other [employer] Other 03-04-2021 16:15-0400 Systolic blood pressure 148 mm[Hg] Erika Chaban Other [employer] Other Encounters Encounter Date Encounter Type Care Provider Facility Start: 02-21-2024 End: 02-21-2024 Bamboo flowsheet Claudette Balderrama DPM Work Phone: [facility] Start: 02-21-2024 End: 02-21-2024 Bamboo flowsheet Claudette Balderrama DPM Work Phone: [facility] Start: 02-21-2024 End: 02-21-2024 Patient encounter procedure Claudette Balderrama DPM Work Phone: [facility] Comment on above: Dermatophytosis of n ail (Primary Dx); Dystrophic nail; Pain around toenail, right foot; Pain around toenail, left foot Start: 02-21-2024 End: 02-21-2024 ambulatory CLAUDETTE BALDERRAMA Not Available Start: 01-31-2024 End: 01-31-[address] [facility] Start: 01-04-2024 End: 01-04-2024 ambulatory RUI TOLEDO Not Available Start: 12-29-2023 End: 12-29-2023 ambulatory RUI TOLEDO Not Available Start: 11-30-2023 End: 11-30-2023 ambulatory ILENE GONZALEZ Not Available Start: 10-06-2023 End: 10-06-2023 ambulatory CLAUDETTE BALDERRAMA Not Available Start: 09-13-2023 End: 09-14-2023 ambulatory Mary Ann Villalobos MD Facility:[facility] Start: 09-06-2023 End: 09-07-2023 ambulatory Mary Ann Villalobos MD Facility:[facility] Start: 08-31-2023 End: 09-01-2023 ambulatory Orquidea Huston Facility: [facility] Start: 08-31-2023 End: 08-31-2023 Patient encounter procedure Orquidea Huston [facility] Start: 07-05-2023 End: 07-06-2023 ambulatory [facility] Start: 06-21-2023 End: 06-22-2023 ambulatory Mary Ann Villalobos MD Facility:[facility] Start: 05-20-2023 End: 05-20-2023 ambulatory CLAUDETTE BALDERRAMA Not Available Start: 03-08-2023 End: 03-09-2023 ambulatory Mary Ann Villalobos MD [facility] Start: 02-08-2023 End: 02-09-2023 ambulatory Mary Ann Villalobos MD Facility:[facility] Start: 02-01-2023 End: 02-01-2023 ambulatory Leo Garcias Other [employer] Other Start: 02-01-2023 Office outpatient vi sit 25 minutes Leo Garcias [facility] Start: 01-13-2023 End: 01-13-2023 ambulatory Leo Garcias Other [employer] Other Start: 01-13-2023 Telephone encounter Leo CHILDRESS [facility] Start: 11-09-2022 End: 11-09-2022 ambulatory Leo Garcias Other [employer] Other Start: 11-09-2022 Telephone encounter Leo CHILDRESS [facility] Start: 10-30-2022 End: 10-30-2022 ambulatory Leo Garcias Other [employer] Other Start: 10-30-2022 Patient encounter procedure Leo Garcias [facility] Start: 08-24-2022 End: 08-24-2022 Patient encounter procedure Dominique ESTRELLA [facility] Start: 07-08-2022 End: 07-08-2022 ambulatory Leo Garcias Other [employer] Other Start: 07-08-2022 Telephone encounter Leo Garcias [facility] [place] [facility] Start: 06-30-2022 End: 06-30-2022 ambulatory Leo Garcias Other [employer] Other Start: 06-30-2022 Office outpatient vi sit 25 minutes Leo Garcias [facility] [place] [facility] Start: 02-23-2022 End: 02-23-2022 Patient encounter procedure Dominique ESTRELLA [facility] Start: 02-17-2022 End: 02-18-[address] LEO GARCIAS Facility:[facility] Start: 10-29-2021 End: 10-30-[address] LEO GARCIAS Facility:[facility] Start: 10-22-2021 Adult health examination Louis Garcias Other [employer] Other Start: 08-28-2021 End: 08-28-[address] DOMINIQUE ESTRELLA Facility:[facility] Start: 08-25-2021 Encounter for preprocedural cardiovascular examination DR DOMINIQUE ESTRELLA [facility] Start: 08-25-2021 Encounter for preprocedural laboratory examination DR DOMINIQUE ESTRELLA [facility] Start: 08-25-[address] DOMINIQUE ESTRELLA [facility] ity:[facility] Start: 08-21-2021 End: 08-22-[address] DOMINIQUE ESTRELLA Facility:[facility] Start: 08-21-2021 End: 08-22-2021 Encounter for preprocedural cardiovascular examination DR DOMINIQUE ESTRELLA Facility:[facility] Start: 08-04-2021 End: 08-04-2021 Patient encounter procedure Dominique ESTRELLA [facility] Start: 07-29-2021 End: 07-30-[address] DOMINIQUE ESTRELLA Facility:[facility] Start: 05-05-2021 End: 05-05-[address] LEO GARCIAS Facility:[facility] Start: 04-01-2021 End: 04-01-2021 ambulatory Erika Bender Other [employer] Other Start: 04-01-2021 Office outpatient vi sit 15 minutes Erika Avilakarly [facility] Start: 03-04-2021 Office outpatient ne w 45 minutes Erika Bender [facility] Start: 08-28-2019 Preoperative cardiovascular examination Leo Garcias Other [employer] Other Start: 07-06-2018 End: 07-07-2018 Patient encounter procedure DEFAULT PHYSICIAN Facility:[facility] Start: 07-04-2018 End: 07-05-2018 Patient encounter procedure DEFAULT PHYSICIAN Facility:[facility] Start: 07-01-2018 End: 07-02-2018 Patient encounter procedure DEFAULT PHYSICIAN Facility:[facility] Procedures Date Procedure Procedure Detail Performing Clinician Start: 10-29-[address] BETZY GARCIAS Comment on above: Performed By: #### C BC #### [facility] [address] [place] [address] Dr. Temo Mckeon Start: 08-28-2021 Extracorporeal shock wave lithotripsy of calculus of kidney Dominique ESTRELLA Start: 01-26-2019 Cystoscopy Dominique ZIEGLER Start: 01-05-2019 Cystoscopy Dominique ZIEGLER Start: 12-16-2018 Preoperative cardiov ascular examination [...] ant neoplasm of prostate Leo Garcias Other Plan of Treatment Date Care Activity Detail Author Start: 11-30-2024 End: 11-30-2024 Patient encounter procedure 11/30/2024 10:25 AM EDT Office Visit [facility] [address] [place] [id number] Ilene Gonzalez, CORRECTIONAL SECURITY OFFICER-METHODS ANALYST [address] [place] [address] [facility] Start: 06-14-2024 End: 06-14-2024 Patient encounter procedure 06/14/2024 10:15 AM EST Procedure Visit [facility] [address] [facility] [place] [phone] Claudette Balderrama DPM [address] [place] [address] [facility] Start: 02-21-2024 End: 02-21-2024 Patient encounter procedure 02/21/2024 9:15 AM EDT Procedure Visit [facility] [address] [place] [phone] Claudette Balderrama DPM [address] [place], [place] [id number] Arrived [facility] Comment on above: Arrived Start: 01-09-2024 Influenza vaccination Influenza Vacc ine (#1) [facility] Immunizations Immunization Date Immunization Notes Care Provider Fa cili 02-09-2024 influenza, high dose seasonal, preservative-free Claudette Balderrama DPGene Work Phone: [facility] 02-09-2024 influenza virus vaccine, unspecified formulation Claudette Balderrama DPGene Work Phone: [facility] 02-01-2023 influenza virus vaccine, unspecified formulation Claudette Balderrama DPM Work Phone: [facility] 02-01-2023 influenza, high dose seasonal, preservative-free Leo Garcias Other [employer] Other 03-23-2022 COVID-19 Pfizer (bivalent) Leo Garcias Other [employer] Other 02-24-2022 influenza virus vaccine, split virus (incl. purified surface antigen) Leo Garcias Other [employer] Other 02-24-2022 influenza virus vaccine, unspecified formulation Claudetteblanca Balderrama DPM Work Phone: [facility] 02-24-2022 influenza, injectabl e, quadrivalent, preservative free Claudette Conchis DPM Work Phone: [facility] 02-24-2022 Influenza, Seasonal, Quadrivalent, Adjuvanted Claudette Conchis DPM Work Phone: [facility] 02-24-2022 influenza, high dose seasonal, preservative-free Leo Garcias Other [employer] Other 03-26-2021 SARS-CoV-2 (COVID-19 ) mRNA BNT-162b2 vax Dominique ESTRELLA [facility] Comment on above: Result Comment: 2021: [id number] 02-21-2021 influenza virus vaccine, split virus (incl. purified surface antigen) Leo [place] Other [employer] Other 02-21-2021 influenza virus vaccine, unspecified formulation Claudette Balderrama DPM Work Phone: [facility] 02-07-2021 influenza virus vaccine, unspecified formulation Dominique ESTRELLA [facility] 07-30-2020 COVID-19 Vaccine Pfi zer - Documentation Purposes Only Erika Bender Other [facility] 07-08-2020 COVID-19 Vaccine Pfi zer - Documentation Purposes Only Erika Bender Other [facility] 05-10-2020 SARS-CoV-2 (COVID-19 ) mRNA BNT-162b2 vax Dominique ESTRELLA [facility] Comment on above: Result Comment: pt h as had 3 shots to date 02-29-2020 influenza virus vaccine, split virus (incl. purified surface antigen) Leo Garcias Other [employer] Other 02-29-2020 influenza virus vaccine, unspecified formulation Claudette Balderrama DPM Work Phone: [facility] 02-16-2019 influenza virus vaccine, split virus (incl. purified surface antigen) Leo Garcias Other [employer] Other 02-16-2019 influenza virus vaccine, unspecified formulation Claudette DUPONTM Work Phone: [facility] [employer] 01-24-2018 influenza virus vaccine, split virus (incl. purified surface antigen) Leo Garcias Other [employer] Other 01-24-2018 influenza virus vaccine, unspecified formulation Dominique ESTRELLA [facility] 01-24-2018 pneumococcal Conjuga te, unspecified formulation; Translations: [Need for prophylactic vaccination against Streptococcus pneumoniae (pneumococcus)] eLo Garcias Other [employer] Other 01-24-2018 pneumococcal polysaccharide vaccine, 23 valent Dominique ESTRELLA [facility] 01-24-2018 Seasonal trivalent influenza vaccine, adjuvanted, preservative free Claudette DUPONTM Work Phone: [facility] 02-18-2017 influenza virus vaccine, split virus (incl. purified surface antigen) Leo Garcias Other [employer] Other 02-18-2017 influenza virus vaccine, unspecified formulation Dominique ESTRELLA [facility] 02-18-2017 influenza, high dose seasonal, preservative-free Claudette Conchis DPM Work Phone: [facility] 02-12-2016 influenza virus vaccine, split virus (incl. purified surface antigen) Leo Garcias Other [employer] Other 02-12-2016 influenza virus vaccine, unspecified formulation Dominique ESTRELLA [facility] 02-12-2016 influenza, high dose seasonal, preservative-free Claudette Conchis DPM Work Phone: [facility] 02-28-2015 tetanus and diphther ia toxoids, adsorbed, preservative free, for adult use (5 Lf of tetanus toxoid and 2 Lf of diphtheria toxoid) Leo Garcias Other [employer] Other 02-28-2015 pneumococcal conjuga te vaccine, 13 valent Leo Garcias Other [employer] Other 02-16-2014 tetanus and diphther ia toxoids, adsorbed, preservative free, for adult use (5 Lf of tetanus toxoid and 2 Lf of diphtheria toxoid) Leo Garcias Other [employer] Other 02-08-2013 tetanus and diphther ia toxoids, adsorbed, preservative free, for adult use (5 Lf of tetanus toxoid and 2 Lf of diphtheria toxoid) Leo Garcias Other [employer] Other 02-17-2012 tetanus and diphther ia toxoids, adsorbed, preservative free, for adult use (5 Lf of tetanus toxoid and 2 Lf of diphtheria toxoid) Leo Garcias Other [employer] Other 10-07-2009 pneumococcal polysaccharide vaccine, 23 valent Leo Garcias Other [employer] Other 10-17-2003 Td(adult) unspecifie d formulation Dominique SAMEER [facility] 10-17-2003 tetanus and diphther ia toxoids, not adsorbed, for adult use Claudette DUPONTM Work Phone: [facility] Payers Date Payer Category Payer Private Health Insurance 2018 Medicare 1958 Medicare [id number] 2.1 [id number] 1959 Private Health Insurance [id number] 1946 Unknown [id number] 2.16.8 40.1.030492.3.579.2.647 1946 Unknown [id number] 2.16.8 40.1.771919.3.579.2.647 1946 Unknown [id number] 2.16.8 40.1.186412.3.579.2.647 1946 Unknown [id number] 2.16.84 0.1.959613.3.579.2.593 1946 Unknown [id number] 2.16.84 0.1.185905.3.579.2.593 1946 Unknown [id number] 2.16.84 0.1.745812.3.579.2.593 1946 Unknown [id number] 2.16.84 0.1.013292.3.579.2.593 1946 Unknown [id number] 2.16.84 0.1.987515.3.579.2.593 1946 Unknown [id number] 2.16.84 0.1.595496.3.579.2.593 1946 Unknown [id number] 2.16.84 0.1.677898.3.579.2.593 1946 Unknown [id number] 2.16.84 0.1.060707.3.579.2.593 1946 Unknown [id number] 2.16.8 40.1.108701.3.579.2.727 1946 Unknown [id number] 2.16. 840.1.511178.3.579.2.196 1946 Unknown [id number] 2.16. 840.1.946735.3.579.2.196 1946 Unknown [id number] 2.16. 840.1.402516.3.579.2.196 1946 Unknown [id number] 2.16. 840.1.996072.3.579.2.196 1946 Unknown [id number] 2.16. 840.1.016363.3.579.2.196 1946 Unknown [id number] 2.16. 840.1.896826.3.579.2.196 1946 Unknown [id number] 2.16.84 0.1.533402.3.579.2.1259 1946 Unknown [id number] 2.16.84 0.1.444509.3.579.2.1259 1946 Unknown [id number] 2.16.84 0.1.936202.3.579.2.1259 1946 Unknown [id number] 2.16.84 0.1.225701.3.579.2.1259 1946 Unknown [id number] 2.16.84 0.1.278657.3.579.2.1259 1946 Unknown [id number] 2.16.84 0.1.340330.3.579.2.1259 Unknown Social History Date Type Detail Facility Start: 01-30-2021 End: 10-19-2022 Tobacco smoking status Never smoked tobacco (finding) [employer] Other Start: 01-04-2024 End: 02-21-2024 Sex Assigned At Male [facility] [employer] Other Tobacco smoking status Never [facility] Start: 10-19-2022 Tobacco use and exposure Smokeless tobacco non-user [facility] Start: 01-04-2024 End: 02-21-2024 Alcoholic beverage intake Current drinker of alcohol (finding) [facility] Start: 01-04-2024 End: 02-21-2024 History of Social function [facility] Start: 10-09-2022 Alcohol Comment 1-2 drinks/mon thly or less [facility] Start: 1945 Sex assigned at Not on file N [facility] Functional Status Date Assessment Result Facility 08-31-2023 Functional Status N/A [facility] 08-24-2022 Functional Status N/A [facility] 02-23-2022 Functional Status N/A [facility] Clinical Notes 12-09-2020 to 02-21-2024 Claudette Balderrama DPM - 02/21/2024 9:15 AM EDTPatient Instructions Note Date & Type Note Facility 02-21-2024 History of Present illness Narrative Images from the original note were not included. Subjective Patient ID: Ralph Almanzar is a 78 y.o. male who presents for Toenail Care (SS: 11). HPI HPI Onychomycosis/Toenail Fungus: pt presents today requesting nail care. Symptomatic toenail deformity Location: identifies all digits with deformed, thickened and discolored toenail; all are problematic/symptomatic. Duration: chronic toenail deformity; multiple years duration. Severity of symptoms: mild-moderate; impacting his ability to wear shoes comfortably. Onset: gradual, without known injury or trauma. Status: problematic/symptomatic over the past several weeks or so. Context: hard to trim, hard to reach; self-care is difficult, ineffective and not practical; significantly increasing risk exposure. Faamily members unable to provide effective care. Characteristics: discolored, thickened, pain , pressure , elongated , /lifting , ingrowing; without bleeding or drainage. Relieved by: palliative care measures have provided favorable transient symptom relief. Previous Treatmentpalliative care as noted. Risk factors: medical comorbidities. Polypharmacy. Plavix and aspirin therapy. Chronic venous insufficiency. Mobility, flexibility and dexterity restraints. Obesity. Toenail deformity. Digital and/or shoe trauma and related complications. Aggravated by: shoe gear , pressure , walking; catching and snagging on clothing etc.. Medications Current Outpatient Medications: amLODIPine-benazepril (Lotrel) 10-20 MG capsule, as directed Orally, Disp: , Rfl: aspirin ([place]) 81 MG capsule, chew 2 tablet (162MG) by ORAL route every day Oral, Disp: , Rfl: atorvastatin (Lipitor) 80 MG tablet, , Disp: , Rfl: citalopram (CeleXA) 20 MG tablet, take 1 tablet (20MG) by ORAL route every morning Oral, Disp: , Rfl: clopidogrel (Plavix) 75 MG tablet, take 1 tablet (75MG) by ORAL route every day Oral, Disp: , Rfl: finasteride (Proscar) 5 MG tablet, Take 5 mg by mouth in the morning. Do not crush, chew, or split. ., Disp: , Rfl: furosemide (Lasix) 20 MG tablet, furosemide 20 mg tablet TAKE 1 TABLET BY MOUTH EVERY DAY, Disp: , Rfl: HYDROcodone-acetaminophen ([place]) 7.5-325 MG tablet, TAKE 1 TABLET BY MOUTH THREE TIMES A DAY NEEDED FOR PAIN, Disp: , Rfl: isosorbide mononitrate ER (Imdur) 60 MG 24 hr tablet, , Disp: , Rfl: metoprolol succinate XL (Toprol-XL) 50 MG 24 hr tablet, take 1 tablet (50MG) by ORAL route every day Oral, Disp: , Rfl: oxybutynin XL (Ditropan-XL) 15 MG 24 hr tablet, Take 15 mg by mouth in the morning. Do not crush, chew, or split.., Disp: , Rfl: tamsulosin (Flomax) 0.4 MG 24 hr capsule, 1 capsule 1 (one) time each day at the same time., Disp: , Rfl: EXTRA STRENGTH ACETAMINOPHEN PO, Extra Strength Acetaminophen (Patient not taking: Reported on 02/21/2024), Disp: , Rfl: ganciclovir (Zirgan) 0.15 % ophthalmic gel solution, Apply 1 drop to left eye 5 (five) times a day (Patient not taking: Reported on 02/21/2024), Disp: 3.5 g, Rfl: 1 LATANOPROST OP, Latanoprost (Patient not taking: Reported on 02/21/2024), Disp: , Rfl: moxifloxacin (Vigamox) 0.5 % ophthalmic solution, Administer 1 drop into the left eye in the morning and 1 drop at noon and 1 drop in the evening and 1 drop before bedtime. 1 drop four times a day to the right eye starting 3 days prior to surgery. (Patient not taking: Reported on 02/21/2024), Disp: 3 mL, Rfl: 1 Pediatric Multivitamins-Fl (MultiVitamin + Fluoride) 0.25 MG chewable tablet, Multivitamin (Patient not taking: Reported on 02/21/2024), Disp: , Rfl: prednisoLONE acetate (Pred-Forte) 1 % ophthalmic suspension, 1 drop, left eye (OS), 3xs/day for 1wk, 2xs/day for 1wk, then daily for 1wk, then stop. (Patient not taking: Reported on 02/21/2024), Disp: 5 mL, Rfl: 0 tolterodine LA (Detrol LA) 4 MG 24 hr capsule, 1 capsule 1 (one) time each day at the same time. (Patient not taking: Reported on 02/21/2024), Disp: , Rfl: triamcinolone (Kenalog) 0.5 % cream, 1 application. (Patient not taking: Reported on 02/21/2024), Disp: , Rfl: Allergies Patient has no known allergies. Past Surgical History Past Surgical History: Procedure Laterality Date CATARACT EXTRACTION Bilateral CORONARY ARTERY BYPASS GRAFT 2008 Carotid artery disease HEMORRHOIDECTOMY HERNIA REPAIR JOINT REPLACEMENT partial knee replacement RT ; Osteoarthritis SPINAL CORD STIMULATOR IMPLANT 08/2023 Family History Family History Problem Relation Name Age of Onset Melanoma Neg Hx Objective General Examination: GENERAL EXAMINATION: alert and oriented. Pleasant disposition. Wearing slip on iso coordinator shoes with Powerstep orthoses. His spouse, Sharon is present. Vascular: DORSALIS PEDIS PULSE: 1/4, bilaterally. POSTERIOR TIBIAL PULSE: 1/4, bilaterally. TEMPERATURE GRADIENT: warm to warm. EDEMA: symmetrical, mild-moderate, non-pitting edema both ankles and lower extremities. CAPILLARY FILLING TIME(sec): capillary fill intact bilateral digits less than 3 secs. Neurologic: MUSCLE POWER: no focal deficits. TINELS SIGN: negative along the tarsal canal. SHARP SENSATION: tactile and soft touch sensation intact. Dermatologic: SKIN FINDINGS: intact. Skin turgor is good. HYPERTROPHIC LESION: no forefoot or digital keratotic pressure lesions are noted. NAIL PATHOLOGY: bilateral great toes: DSO/pincer toenail deformity: Toenail dystrophy, thickening, elongation, yelllowish discoloration; the distal margins are incurvated/cryptotic, keratotic, tender, non-inflamed, without drainage. All remaining digits: Toenail dystrophy, thickening, elongation, discoloration, clubbing, periungual hyperkeratotic debris, without drainage. MYCOSIS SCALE: total with debris; multiple digits. INTERDIGITAL MACERATION:clean, dry, non-inflamed. SKIN PATHOLOGY: texture, turgor, hair growth, within normal limits. Orthopedic: FOOT MORPHOLOGY: stance assessment: Symmetrical, moderately pronated foot type. LIMB LENGTH DISCREPANCY: no obvious or apparent leg length discrepancy. JOINT RANGE OF MOTION: passive ankle dorsiflexion is functional but limited; consistent with gastrocnemius equinus. Maintains functional subtalar and midtarsal joint range of motion.. PAIN ELICITED WITH ROM: focused exam right foot: Estimate 20-25 degrees passive dorsiflexion first MTP joint, with mild joint crepitus. Focused exam left foot: Functional first MTP joint range of motion. Radiology: Assessment/Plan 1. Symptomatic onychodystrophy/mycosis multiple digits as described. 2. 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 3. CVI with mild stasis dermatitis. 4. Midfoot arthrosis bilateral Plan: Clinical Notes: conservative and palliative care measures are preferred, understood and indicated. Patient expresses no interest in oral therapy (polypharmacy); topical therapy is not practical for him due to mobility restraints. Hygiene and skin care measures discussed as able to do so. Encourage compliance with gradient compression sock therapy. Procedure: Toenail Debridement: Aseptic technique: power/manual instrumentation: onychodebridement length and thickness, curretage of offending crypotic margins, regi-ungual debris, providing effective pressure and symptom relief, reducing shoe and digital trauma This note was created with the assistance of a speech recognition program. While intending to generate a timely document that accurately reflects the content of the visit, no guarantee can be provided that every grammatical or spelling mistake has been or will be identified or corrected. Thank you for your understanding. Claudette Balderrama DPM documented in this encounter [facility] 02-21-2024 Instructions Claudette Balderrama DPM - 02/21/2024 9:15 AM EDT As noted documented in this encounter [facility] 01-31-2024 Note [facility] Cardiology Clinic Note Chief Complaint: Patient here for 1 year follow up CAD, carotid artery stenosis, and hypertension. Had echo and carotid duplex last Feb 2023. Routine labs with lipids were done in October, and he's repeating them this morning for Dr. Garcias. Denies chest pain. Says his MONTES remains unchanged. Still goes to cardiac rehab twice a week. HPI: Mason Almanzar is a 78 y.o. male Doing well [...] coronary artery disease including aspirin, Plavix, statin, beta-oj and Imdur A complete echocardiogram To monitor for changes in his ejection fraction, wall motion or valvular abnormalities particularly given his shortness of breath Will likely repeat stress test at his next visit as it will have been 4 years since his prior stress test Return to clinic in 1 year or sooner should problems arise Shalonda Rai MD, MPH, [facility], [facility], [facility] Interventional Cardiology Pager Email: [email or web address] 08-31-2023 Hospital Discharge instructions Patient Education 08/31/2023 [...] urethra. Follow these instructions at home: Take dory-hhw-yzpenml and prescription medicines only as told by [...] provider. Document Revised: 11/12/2021 Document Reviewed: 11/12/2021 Any.DO Patient Education 2022 [employer]. 08/31/2023 09:07:49 Urinary Incontinence Urinary Incontinence Urinary [...] nerve stimulation). ?For women, using a medical concierge to prevent urine leaks. This is a [...] right after experiencing incontinence. General instructions Take eaul-qza-zavltsb and prescription medicines only as told by [...] important. Where to find more information National [employer] of Diabetes and Digestive and Kidney Diseases: www.niddk.nih.gov [employer]: www.urologyhealth.org Contact a health care [...] provider. Document Revised: 11/29/2020 Document Reviewed: 11/29/2020 Any.DO Patient Education 2022 [employer]. Follow Up Care 08/24/2022 11:22:07 With:ISAAC Huston APRN, CHASE Colbert, URL Address: When: Unknown Comments:1 year with [facility] With:SAMEER MONTIEL, Dominique Sequeira, URL Address: [facility] [address], [place] [address]- [phone] When: Unknown [facility] 02-01-2023 Evaluation note Encounter Date Diagnosis [...] use, the patient reduces the risk for PA, CVA, HTN, cardiac dysrhythmias and sudden cardiac [...] in remission (ICD-10 - F17.211) Continue abstinence [employer] Other 09-06-2023 Evaluation note* Encounter Date Diagnosis Assessment Notes Treatment Notes Treatment Clinical Notes Jan, Lumbosacral spondylosis with radiculopathy (ICD-10 - 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 Follow these instructions at home: Take vqeo-rgn-hunnmox and prescription medicines only as told by [...] 04/26/2006 Document Revised: 03/21/2019 Document Reviewed: 05/31/2017 Any.DO Patient Education 2020 [employer]. Follow Up Care 02/23/2022 11:36:40 With:SAMEER MONTIEL, Dominique Sequeira, URL Address: [facility] [address] , [place] [address]- When: Unknown [facility] 02-21-2023 Evaluation note* Encounter Date Diagnosis [...] use, the patient reduces the risk for PA, CVA, HTN, cardiac dysrhythmias and sudden cardiac [...] since initial CVA > 20 years ago [employer] Other 10-17-2022 Hospital Discharge instructions Patient Education 02/23/2022 11:32:02 Kidney Stones, Hgnf-ap-Llal Kidney Stones Kidney stones are rock-like masses [...] Follow these instructions at home: Medicines Take geqs-hyb-egwninf and prescription medicines only as told by [...] 10/12/2008 Document Revised: 09/12/2019 Document Reviewed: 09/12/2019 Any.DO Patient Education 2020 Improve [employer]. Follow Up Care 08/28/2021 11:53:17 With:SAMEER MONTIEL, Dominique Sequeira, URL Address: [facility] [address] , [place] [address]- [phone] When:08/24/2022 [facility] [place] 03-28-2022 Hospital Discharge instructions Patient Education 08/04/2021 [...] Follow these instructions at home: Medicines Take jwap-rls-iuqaxnd and prescription medicines only as told by [...] 05/15/2008 Document Revised: 08/07/2019 Document Reviewed: 03/17/2017 Any.DO Patient Education 2020 [employer]. 08/04/2021 09:25:02 Calorie Counting for Weight Loss [...] 04/26/2006 Document Revised: 01/13/2019 Document Reviewed: 03/26/2017 Any.DO Patient Education 2020 [employer]. 08/04/2021 09:24:51 Benign Prostatic Hyperplasia Benign Prostatic [...] urethra. Follow these instructions at home: Take pada-wac-bzxurdf and prescription medicines only as told by [...] 04/26/2006 Document Revised: 03/21/2019 Document Reviewed: 05/31/2017 Any.DO Patient Education 2020 Improve [employer]. Follow Up Care 01/30/2021 10:09:00 With:SAMEER MONTIEL, Dominique Sequeira, URL Address: [facility] [address], [place] [address]- [phone] When: Unknown Comments:Will schedule RT ESWLF/u in 3-4 month due to new medication [facility] [place] 11-23-2021 Evaluation note* Encounter Date Diagnosis Assessment Notes Treatment Notes Treatment Clinical Notes Mar, Dyspnea on exertion (ICD-10 - R06.00) Mar, Leg edema (ICD-10 - R60.0) [employer] Other 10-26-2021 Evaluation note* Encounter Date Diagnosis Assessment Notes Treatment Notes Treatment Clinical Notes Feb, Dyspnea on exertion (ICD-10 - R06.00) Feb, Leg edema (ICD-10 - R60.0) [employer] Other 08-02-2021 NoteHNO ID: [id number] Author: Amara Esqueda MD Service: ? Author [...] by others. I have seen and examined Mason Almanzar. I have discussed the case and the management of this patient's care with the Resident/Fellow, if applicable. I also have reviewed and agree with the assessment and plan as stated above and agree with all of its relevant components. Amara Esqueda MD [facility] Future App[facility]ments Appointment Date:11/07/2021 09:30:00 AM Scheduled Provider:Dominique ESTRELLA MD Location:[facility] Appointment Type:URO Office Visit [facility] evaluation + Plan note Future Appointments Appointment Date:08/24/2022 10:30:00 AM Scheduled Provider:Dominique ESTRELLA MD Location:[facility] Appointment Type:URO Office Visit [facility] evaluation + Plan note Future Appointments Appointment Date:03/01/2023 09:15:00 AM Scheduled Provider:Dominique ESTRELLA MD Location:[facility] Appointment Type:URO Office Visit [facility] evaluation noteNo InformationN[facility]Well[facility] Other Evaluation note* Diagnosis Dermatophytosis of nail- Primary Dystrophic nail Other specified disease of nail Pain around toenail, right foot Pain around toenail, left foot documented [facility] - Reported* Type Description Date Medical History ADITHYA Medical History hypertension Medical History heart disease Surgical History bypass triple Surgical History 2 knee replacements Surgical History hiatal hernia Surgical History cataract x 2 Hospitalization History as above [employer] Other History general Narrative - Reported* Type [...] OF KIDNEY STONE Hospitalization History as above [employer] Other Hospital course Narrative No data available for this section [facility] progress note No data available for this section [facility] Summary Purpose Family History No Family [...] 1 Lumbar spondylosis ( M47.816) Referral Organization [facility] caren Referring Provider First Name Leo Referring Provider Last Name [place] Referring Provider Specialty Internal Me dicine Referred Organization [facility] Referred Provider Samantha Contreras Referred Address [address], [place],[address] Referred Provider Specialty Pain Medicin e Referral [...] section and content) DATE CREATED AUTHOR 07/07/2018 [facility] DATE CREATED AUTHOR AUTHOR'S ORGANIZ ATLINDSEY 12/09/2020 [facility] DATE CREATED AUTHOR AUTHOR'S ORGANIZ ATION 03/10/2021 [facility] DATE CREATED AUTHOR AUTHOR'S ORGANIZ ATION 03/01/2022 [facility] [place] [facility] DATE CREATED AUTHOR AUTHOR'S ORGANIZ ATION 09/01/2023 Wilfredo Pinon [facility] DATE CREATED AUTHOR AUTHOR'S ORGANIZ ATION 09/23/2023 [facility] DATE CREATED AUTHOR AUTHOR'S ORGANIZ ATION 02/01/2024 [facility] DATE CREATED AUTHOR AUTHOR'S ORGANIZ ATION 02/22/2024 [facility] Specialists EPIC REASON FOR VISIT (unrecogniz ed section and content) Reason Comments Toenail Care SS: 11 Patient Care team informatio n (unrecognized section and content) [facility] Relationship Specialty Start Date End Date Leo Garcias MD [address] [place] [id number] PCP - General Internal Medicine 10/08/22 [facility] Relationship Specialty Start Date End Date Leo Garcias MD [address] [place] [id number] PCP - General Internal Medicine 10/08/22 FOR RECORDS PERTAINING TO PATIENTS WHO ARE [...] BE BASED ON THE PRIMARY CLINICAL RECORDS. [employer] provides no warranty or guarantee of the accuracy or completeness of information in this document.
--- NOTE | 2024-04-19 11:07 | PM.CN ---
Consult Note: HPI Data of Consult Patient: known to practice within the last 3 years Consult date: 09/13/23 Requesting Physician: Blessing Benavides NP Primary Care Provider: Leo Garcias DO Consult Narrative Reason for consult: low back pain Narrative: 78yom who presents for assessment chronic low back pain. Patient recently underwent spinal cord stimulator placement 09/06/23 with less than 50% improvement ongoing. Pain 6/10 in low back with weakness to bilateral legs. Patient noticing significant improvement in weakness from water therapy. Patient stopped taking gabapentin since last visit due to ineffectiveness. Pt reports he is not sure if he is taking his old percocet prescription, initially told MA he is utilizing TID. cannot take NSAIDs, on plavix. Did not f/u with [facility], reports they did not call him. cc:: CC: Blessing Benavides NP Review of Systems ROS Status of ROS 10 or more systems reviewed and unremarkable except as noted in history and below Musculoskeletal Reports: back pain PFSH PFSH Medical History Dyspnea on exertion ?R06.09 - Other forms of dyspnea (ICD-10) Arthritis ?M19.90 - Unspecified osteoarthritis, unspecified site (ICD-10) Right shoulder pain ?M25.511 - Pain in right shoulder (ICD-10) Back pain ?M54.9 - Dorsalgia, unspecified (ICD-10) Depression ?F32.A - Depression, unspecified (ICD-10) S/P extracorporeal shock wave therapy ?Z98.890 - Other specified postprocedural states (ICD-10) Glaucoma ?H40.9 - Unspecified glaucoma (ICD-10) Cataract ?H26.9 - Unspecified cataract (ICD-10) GERD (gastroesophageal reflux disease) ?K21.9 - Gastro-esophageal reflux disease without esophagitis (ICD-10) Hernia ?K46.9 - Unspecified abdominal hernia without obstruction or gangrene (ICD-10) High cholesterol ?E78.00 - Pure hypercholesterolemia, unspecified (ICD-10) Right leg weakness ?R29.898 - Other symptoms and signs involving the musculoskeletal system (ICD-10) CVA (cerebral vascular accident) ?I63.9 - Cerebral infarction, unspecified (ICD-10) Extremity edema ?R60.0 - Localized edema (ICD-10) Coronary artery disease ?I25.10 - Atherosclerotic heart disease of [place] coronary artery without angina pectoris (ICD-10) Chronic low back pain ?M54.50 - Low back pain, unspecified (ICD-10) ?G89.29 - Other chronic pain (ICD-10) Lumbar stenosis ?M48.061 - Spinal stenosis, lumbar region without neurogenic claudication (ICD-10) Uses continuous positive airway pressure (CPAP) ventilation at home ?Z99.89 - Dependence on other enabling machines and devices (ICD-10) History of stroke ?Z86.73 - Personal history of transient ischemic attack (TIA), and cerebral infarction without residual deficits (ICD-10) Osteoarthritis ?M19.90 - Unspecified osteoarthritis, unspecified site (ICD-10) Upper back pain ?M54.9 - Dorsalgia, unspecified (ICD-10) Low back pain ?M54.50 - Low back pain, unspecified (ICD-10) Anxiety ?F41.9 - Anxiety disorder, unspecified (ICD-10) Kidney stone ?N20.0 - Calculus of kidney (ICD-10) Sleep apnea ?G47.30 - Sleep apnea, unspecified (ICD-10) Hypertension ?I10 - Essential (primary) hypertension (ICD-10) Surgical History History of colonoscopy ?Z98.890 - Other specified postprocedural states (ICD-10) History of heart artery stent ?Z95.5 - Presence of coronary angioplasty implant and graft (ICD-10) History of cardiac catheterization ?Z98.890 - Other specified postprocedural states (ICD-10) S/P cataract extraction and insertion of intraocular lens ?Z98.49 - Cataract extraction status, unspecified eye (ICD-10) ?Z96.1 - Presence of intraocular lens (ICD-10) S/P triple vessel bypass ?Z95.1 - Presence of aortocoronary bypass graft (ICD-10) History of knee replacement ?Z96.659 - Presence of unspecified artificial knee joint (ICD-10) History of repair of hiatal hernia ?Z98.890 - Other specified postprocedural states (ICD-10) ?Z87.19 - Personal history of other diseases of the digestive system (ICD-10) Family History Other Family history of cancer Family history of diabetes mellitus Family history of heart disease Family history of hypertension Family history of myocardial infarction Social History Within the past year, how often did you have a drink containing alcohol: monthly or less Smoking status: Never smoker Highest level of school completed/degree received: high school graduate Meds Home Medications and Allergies Home Medications ?Medication ?Instructions ?Recorded ?Confirmed ?Type amlodipine 10 mg-benazepril 20 mg 1 cap PO DAILY 02/08/23 09/06/23 History capsule aspirin 81 mg tablet,delayed 81 mg PO DAILY 02/08/23 09/06/23 History release (Adult Aspirin Regimen) atorvastatin 80 mg tablet 80 mg PO DAILY 02/08/23 09/06/23 History citalopram 20 mg tablet 20 mg PO DAILY 02/08/23 09/06/23 History clopidogrel 75 mg tablet 75 mg PO DAILY 02/08/23 09/06/23 History finasteride 5 mg tablet 5 mg PO DAILY 02/08/23 08/24/23 History furosemide 20 mg tablet 20 mg PO DAILY 02/08/23 08/24/23 History isosorbide mononitrate 60 mg 60 mg PO DAILY 02/08/23 08/24/23 History tablet,extended release 24 hr metoprolol succinate 50 mg 50 mg PO DAILY 02/08/23 09/06/23 History tablet,extended release 24 hr oxybutynin chloride 15 mg 15 mg PO DAILY 02/08/23 09/06/23 History tablet,extended release 24 hr tamsulosin 0.4 mg capsule 0.4 mg PO Q24H 02/08/23 09/06/23 History oxycodone-acetaminophen 7.5 mg-325 1 tab PO TID PRN pain #90 tabs 08/17/23 09/06/23 Rx mg tablet (Percocet) cephalexin 500 mg capsule 500 mg PO TID #21 caps 09/06/23 Rx hydrocodone 7.5 mg-acetaminophen 1 tab PO TID PRN pain #90 tabs 09/22/23 Rx 325 mg tablet baclofen 10 mg tablet 10 mg PO BID PRN muscle spasm #60 11/10/23 Rx tabs gabapentin 300 mg capsule 300 mg PO BID #60 caps 01/20/24 Rx Allergies Allergy/AdvReac Type Severity Reaction Status Date / Time No Known Drug Allergies Allergy Verified 09/06/23 09:11 Exam Constitutional Documenting provider has reviewed patient's vital signs: yes Common normals: no apparent distress, oriented x3, healthy appearing, alert and well nourished General appearance: cooperative HENMT Common normals: normocephalic, hearing grossly normal bilaterally and moist oral mucous membranes Head and scalp: normocephalic Eye Common normals: PERRL Pupil: PERRL Neck & C-Spine Common normals: full ROM General: normal visual inspection Chest Common normals: inspection of chest normal Respiratory Common normals: normal respiratory effort, no retractions and no use of accessory muscles Back & Pelvis Lumbar spine/lower back: normal to inspection, ROM limited, pain with ROM and straight leg raise negative bilaterally Other: strength 5/5 in BLE increased pain with forward flexion sensation intact BLE Extremity Common normals: normal to inspection and full ROM Neuro Common normals: oriented x3, CN's II-XII intact bilaterally, moves all extremities, no focal motor deficits, no sensory deficits noted and deep tendon reflexes 2+ bilaterally Sensorium/orientation: alert Motor exam: strength 5/5 throughout and no movement abnormalities noted Psych Common normals: mental status grossly normal, thought process normal, cooperative, affect normal, speech normal and activity/motor behavior normal Speech: normal speech Thought process: normal thought process Results Additional Findings Additional findings: If on a controlled substance or opioids, I have checked an [facility] report on this patient and there are no aberrancies noted in the prescribing history.??If on a controlled substance or opioid a drug screen was completed and reviewed within the last year, and if there has not been a drug screen completed we ordered one today to monitor higher risk, state monitored pain medication use. As part of providing excellent, safe, comprehensive care, the following was completed at our patient's visit: 1. A medication reconciliation and review to ensure accurate knowledge of current/active medications, including asking our patients to inform us about any [id number] medications or herbal remedies/nutritional supplements/alternative remedies. 2. A review to specifically ensure our patients have had annual screening for screening for depression, screening for tobacco use, and screening for unhealthy alcohol use. For concerning screenings had a discussion with the patient, provided patient education, and recommended follow-up with primary care provider when appropriate. If patient noted with a risk of falling, they received education on strength, gait, and balance training to prevent future risk of falling. Assessment and Plan Assessment and Plan (1) Vertebrogenic low back pain: Assessment and Plan: Lumbar MRI 02/15/23 FINDINGS: For discussion purposes the cephalad most axial T2 weighted image defines the T11 vertebral level. Osseous: The vertebral body heights are maintained. No fracture. Osteophytes and disc height loss at all lumbar levels. Modic type I Modic type II endplate edema at L1-L2. Modic type I Modic type II endplate degenerative changes at L3-L4. Conus medullaris/cauda equina: The conus medullaris terminates at the L1-L2 disc level. No abnormal signal is demonstrated within the distal aspect of the spinal cord. Soft tissues: The abdominal aorta is normal in caliber. No retroperitoneal lymphadenopathy. Bilateral renal cysts. Disc levels: T11-T12: Small broad-based posterior disc bulge superimposed right articular zone disc extrusion extending caudally along the superior one quarter of the T12 vertebral body. This mildly narrows the right subarticular recess. Mild facet arthrosis. Mild right foraminal stenosis. T12-L1: Small broad-based posterior disc bulge. Mild narrowing of the spinal canal. Foramina are patent. L1-L2: Broad-based posterior disc bulge. Mild spinal canal stenosis. Mild left and mild right foraminal stenosis. L2-L3: Broad-based posterior disc bulge. Mild narrowing of the spinal canal neural foramina. L3-L4: Broad-based posterior disc bulge. Mild spinal canal and neural foraminal stenosis. Mild facet arthrosis. L4-L5: Moderate right and mild left facet arthrosis. Broad-based posterior disc bulge. Mild spinal canal and bilateral foraminal stenosis. Mild bilateral subarticular recess stenosis L5-S1: Broad-based posterior disc bulge. Mild narrowing of the left subarticular recess. Mild facet arthrosis. Mild to moderate foraminal stenosis. (2) Lumbar stenosis with neurogenic claudication: (3) Chronic low back pain: (4) Lumbar spondylosis: Plan pt declining additional injections at this time, discussed bilateral L4-s1 mbb x2 working towards RFA declining referral to [facility] for consideration of intracept declining medications f/u PRN
== END 2024-04-19 10:11 | disposition home or self-care (01) ==
LOC: PM 10:11
PROVIDERS: PCP Internal Medicine; Visit Provider Nurse Practitioner
DX: M54.50 Low back pain, unspecified (principal); M48.062 Spinal stenosis, lumbar region with neurogenic claudication; M47.816 Spondylosis without myelopathy or radiculopathy, lumbar region
CPT/HCPCS: G0463

== ENCOUNTER 2024-06-13 09:13 | Outpatient (OUT) | payer MEDICARE, OTHER, SELFPAY ==
--- OUTSIDE RECORDS SUMMARY | 2024-06-13 09:35 | XMS_ITS | CCD ---
Author Organization [facility] Team Providers Care Web Designer Developer Name Role Phone PHYSICIAN, DEFAULT Admitting Unavailable PHYSICIAN, DEFAULT Attending Unavailable DIETER, LEO Primary Care Unavailable PHYSICIAN, DEFAULT Admitting Unavailable PHYSICIAN, DEFAULT Attending Unavailable DIETER, LEO Primary Care Unavailable PHYSICIAN, DEFAULT Admitting Unavailable PHYSICIAN, DEFAULT Attending Unavailable DIETER, LEO Primary Care Unavailable LEO GARCIAS Primary Care Physician [phone] Erika Bender Unavailable DIETER, DR VAZQUEZ Primary [...] Wilfredo MONTIEL, Mary Ann Chacko Attending Unavailable SHALONDA RAI Attending Unavailable RIAN BALDERRAMA Attending Unavailable RIAN BALDERRAMA Attending Unavailable KHUSHI GONZALEZ Attending Unavailable RUI JIMENEZ Attending Unavailable RUI JIMENEZ Attending Unavailable RIAN BALDERRAMA Attending Unavailable Leo Garcias MD Primary Care Provider Allergies Allergy Classification Reported Allergen(s) Allergy Type Date of Onset Reaction(s) Facility (1 source) 18127,00; Translations: [97520,00] Propensity to adverse reactions (disorder) 9 [facility] Repository (2 sources) patient allergy list reviewed by nurse or physicia Propensity to adverse reactions 9 Comment:Done Tesaris Other (1 source) No Known Medication Allergies; Translations: [No Known Medication Allergies] Propensity to adverse reactions (disorder) [facility] Repository Medications Current Medications Medication [...] times daily as needed for pain HYDROcodone-acetaminophen ([place]) 7.5-325 MG tablet TAKE 1 TABLET BY MOUTH THREE TIMES A DAY NEEDED FOR PAIN 09/22/2023 Active acyclovir 400 mg oral tablet (3 sources) Herpesvirus Nucleoside Analog DNA Polymerase Inhibitor, Herpes Simplex Virus Nucleoside Analog DNA Polymerase Inhibitor, Herpes Zoster Virus Nucleoside Analog DNA Polymerase Inhibitor Start: 12-29-2023 End: 01-08-2024 take 1 tablet by mouth five times daily acyclovir (Zovirax) 400 MG tablet Indications: HSV epithelial keratitis Take 1 tablet (400 mg) by mouth 5 (five) times a day for 10 days 50 tablet 12/29/2023 01/08/2024 Active amLODIPine 10 mg oral tablet (2 sources) Dihydropyridine Calcium Channel Remy Start: 10-27-2019 take 10 mg by mouth once daily amlodipine 10 mg, Oral, Daily, Refills(s) 0 Start Date: 10/27/19 Status: Ordered amLODIPine 10 mg / benazepril hydrochloride 20 mg oral capsule (17 sources) Dihydropyridine Calcium Channel Remy, Angiotensin Converting Enzyme Inhibitor Start: 08-24-2022 amlodipine-benazepril [...] / vitamin e 6.75 mg chewable tablet (6 sources) Nicotinic Acid, Vitamin A, Vitamin B12, Vitamin D, Vitamin C Pediatric Multivitam ins-Fl (MultiVitamin + Fluoride) 0.25 MG chewable tablet Multivitamin Active Aspir-81 (9 sources) Aspir-81 Active Aspirin (10 sources) Platelet Aggregation Inhibitor, Nonsteroidal Anti-inflammatory Drug Start: 10-27-2019 aspirin 81 mg, Refills(s) 0 Start Date: 10/27/19 Status: Ordered Start: 06-10-2009 take 2 tablets by ks ut once daily aspirin ([place]) 81 MG capsule chew 2 tablet (162MG) by ORAL route every day Oral 06/10/2009 Active atorvastatin 80 mg oral tablet (20 sources) HMG-CoA Reductase Inhibitor Start: 06-10-2009 take 80 mg by mouth once daily Lipitor 80 mg, Oral, Daily, Refills(s) 0 Start Date: 10/27/19 Status: Ordered Start: 06-10-2009 take 0.5 tablet by outh once at bedtime atorvastatin (Lipitor) 20 MG tablet take 0.5 tablet (10MG) by ORAL route every bedtime Oral 06/10/2009 Active citalopram 20 mg oral tablet (19 sources) Serotonin Reuptake Inhibitor Start: 06-10-2009 take [...] Oral 06/10/2009 Active EXTRA STRENGTH ACETAMINOPHEN PO (6 sources) EXTRA STRENGTH ACETAMINOPHEN PO Extra Strength Acetaminophen Active finasteride 5 mg oral tablet (17 sources) 5-alpha Reductase Inhibitor Start: 01-30-2021 take 1 tablet by mouth once daily finasteride 5 mg Tab 5 mg = 1 tab(s), Oral, Daily, # 90 tab(s), Refills(s) 3, Pharmacy: [facility]/pharmacy #[id number], 164, cm, 08/24/22 10:54:00 EDT, Height/Length Dosing, 138, kg, 08/24/22 10:54:00 EDT, Weight Dosing Start Date: 01/19/23 Status: Ordered Lasix (19 sources) Loop Diuretic Start: 10-27-2019 Lasix 20 [...] day Active ganciclovir 0.0015 mg/mg ophthalmic gel (5 sources) Cytomegalovirus Nucleoside Analog DNA Polymerase Inhibitor, [...] tablet Isosorbide Mononitrate Active Imdur Active latanoprost (15 sources) Prostaglandin Analog LATANOPROST OP Latanoprost Active take 1 drop(s) into the eye(s) once daily in the evening Latanoprost 0.005 % 1 drop into affected eye in the evening Ophthalmic Once a day Not-Taking 24 hr metoprolol succinate 50 mg extended release oral tablet (19 sources) beta-Adrenergic Remy Start: 06-10-2009 take 1 tablet by mouth once daily metoprolol succinate XL (Toprol-XL) 50 MG 24 hr tablet take 1 tablet (50MG) by ORAL route every day Oral 06/10/2009 Active moxifloxacin 5 mg/ml ophthalmic solution (5 sources) Quinolone Antimicrobial Start: 12-29-2023 moxifloxacin (Vigamox) [...] chloride 15 mg extended release oral tablet (17 sources) Cholinergic Muscarinic Antagonist Start: 06-25-2023 take 1 tablet by mouth once daily oxybutynin 15 mg ER Tab 15 mg = 1 tab(s), Oral, Daily, # 90 tab(s), Refills(s) 3, Pharmacy: [facility]/pharmacy #[id number], 164, cm, 08/24/22 10:54:00 EDT, Height/Length Dosing, 138, kg, 08/24/22 10:54:00 EDT, Weight Dosing Start Date: 06/25/23 Status: Ordered Start: 06-26-2022 take 1 tablet by domingo th every twenty-four hours oxyBUTYnin Chloride ER 15 MG 1 tablet Orally Once a day Jun, Active Start: 08-04-2021 take 1 tablet by mouth once da bettye oxybutynin 15 mg ER Tab 15 mg = 1 tab(s), Oral, Daily, # 30 tab(s), Refills(s) 11, Pharmacy: [facility]/pharmacy #[id number], andrés Watson, 08/04/21 8:56:00 EDT, Height/Length Dosing, 139, kg, 08/04/21 8:56:00 EDT, Weight Dosing Start Date: 08/04/21 Status: Ordered take 1 tablet by domingo every twenty-four hours in the morning oxybutynin XL (Ditropan-XL) 15 MG 24 hr tablet Take 15 mg by mouth in the morning. Do not crush, chew, or split.. Active prednisoLONE acetate 10 mg/ml ophthalmic suspension (3 sources) Corticosteroid Start: 01-04-2024 prednisoLONE acetate (Pred-Forte) 1 % ophthalmic suspension Indications: HSV epithelial keratitis 1 drop, left eye (OS), 3xs/day for 1wk, 2xs/day for 1wk, then daily for 1wk, then stop. 5 mL 01/04/2024 Active tamsulosin hydrochloride 0.4 mg oral capsule (19 sources) alpha-Adrenergic Remy Start: 07-12-2023 take 1 capsule by mouth twice daily tamsulosin 0.4 mg Cap 0.4 mg = 1 cap(s), Oral, BID, # 180 cap(s), Refills(s) 3, Pharmacy: [facility]/pharmacy #[id number], 164andrés, 08/24/22 10:54:00 EDT, Height/Length Dosing, 138, kg, 08/24/22 10:54:00 EDT, Weight Dosing Start Date: 07/12/23 Status: Ordered Start: 06-26-2022 take 1 capsule by mo [facility] twice daily tamsulosin 0.4 mg Cap 0.4 mg = 1 cap(s), Oral, BID, # 180 cap(s), Refills(s) 3, Pharmacy: [facility]/pharmacy #[id number], 164, andrés, 02/23/22 11:10:00 EDT, Height/Length Dosing, 139, kg, 02/23/22 11:10:00 EDT, Weight Dosing Start Date: 06/26/22 Status: Ordered Start: 02-23-2022 End: 06-23-2022 take 1 capsule by mouth twice daily tamsulosin 0.4 mg Cap 0.4 mg = 1 cap(s), Oral, BID, X 30 day(s), # 60 cap(s), Refills(s) 3, Pharmacy: [facility]/pharmacy #[id number], 164, cm, 02/23/22 11:10:00 EDT, Height/Length Dosing, 139, kg, 02/23/22 11:10:00 EDT, Weight Dosing Start Date: 02/23/22 Stop Date: 06/23/22 Status: Ordered Start: 11-22-2020 End: 11-17-2021 take 1 capsule by mouth twice daily Flomax 0.4 mg Cap 0.4 mg = 1 cap(s), Oral, BID, X 90 day(s), # 180 cap(s), Refills(s) 3, [id number] 164, andrés, 07/26/20 9:40:00 EDT, Height/Length Dosing, 138.5, kg, 07/26/20 9:40:00 EDT, Weight Dosing Start Date: 11/22/20 Stop Date: 11/17/21 Status: Ordered tamsulosin (Flom ax) 0.4 MG 24 hr capsule 1 capsule 1 (one) time each day at the same time. Active 24 hr tolterodine tartrate 4 mg extended release oral capsule (8 sources) Cholinergic Muscarinic Antagonist tolterodine LA (Detrol LA) 4 MG 24 hr capsule 1 capsule 1 (one) time each day at the same time. 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 rigidus, [...] Coronary arteriosclerosis; Translations: [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 Deficiency [...] that caused by tuberculosis or sexually transmitteddisease) (7 sources) Herpes simplex virus epithelial keratitis; 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 Other aftercare (3 sources) Other co founder and president (current) drug therapy; Translations: [OTH HALF-WAY CURRENT DRUG THERAPY] Onset: 08-25-2021 Episodic Other aftercare (2 sources) Long-term current use of drug therapy; Translations: [Other penitentiary (current) drug therapy] Episodic Other and ill-defined [...] Onset: 01-31-2014 Episodic Other nervous system disorders (6 sources) Difficulty walking; Translations: [Difficulty in walking, [...] Resolved: 01-08-2021 Episodic Other aftercare (1 source) jail (current) use of anticoagulants; Translations: [GERMAN 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 CURRNT USE ANTICOAGULANTS] Onset: 08-29-2021 Episodic Other aftercare (1 source) jail (current) use of antithrombotics/ant iplatelets; Translations: [HALF-WAY ANTITHROMBOT/ANTIPL ATLETS] Onset: 08-25-2021 Episodic Other and [...] Range Facility Office Visiton 01-31-2024 Follow-up visit [id number] Ralph Almanzar 1945 M Date Provider Department Center 01/31/2024 271-SHALONDA RAI CARD [facility] No family history on file Level of Service:58928 [place] OFFICE/OUTPATIENT ESTABLISHED MOD MDM 30 MIN Normal [facility] Patient Educationon 08-30- 24 Patient Education Urology Benign Prostatic Hyperplasia [...] Follow these instructions at home: ? Take lcnd-prp-rsbeaeu and prescription medicines only as told by [...] the medicine (more content not included)... Normal [facility] Urology Office/Clinic Noteon 08-31-2023 Urology Office/Clinic [...] with voice recognition artificial intelligence software, specifically [employer] and or [employer]. Substitutions may have occurred due to the [...] Urnls Dip Stick Auto w/o Microscopy POC 47014 3. 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 Normal [facility] Comment on above: Result Comment: Elec tronically Signed By: ISAAC Huston APRN, [place] X\.br\Date and Time Signed: 08/31/23 09:08 EDT RAD - MISCon 08-17-2023 RAD - MISC [id number] IFF Normal [facility] BNPon 02-17-2022 Natriuretic peptide B (Bld) [Mass/Vol] 330.0 pg/mL Normal <=1,800.0 [facility] Comment on above: Performed By: #### B FLIGHT CONTROL MANAGER, TSH, BMP #### [facility] [address] [place] [address] Dr. Temo Mckeon CBC AUTO DIFFon 02-17-2022 BASO # 0.1 103/ul Normal 0.0-0.1 [facility] Comment on above: Performed By: #### C BC #### [facility] [address] [place] [address] Dr. Temo Mckeon Basophils/100 WBC (Bld) 0.4 % Normal 0.2-2.0 [facility] Comment on above: Performed By: #### C BC #### [facility] [address] [place] [address] Dr. Temo Mckeon EO # 0.3 103/ul Normal 0.0-0.7 [facility] Comment on above: Performed By: #### C BC #### [facility] [address] [address] [address] Temo Mckeon Eosinophils/100 WBC (Bld) 2.8 % Normal 0.9-7.0 [facility] Comment on above: Performed By: #### C BC #### [facility] [address] [place] [address] Dr. Temo Mckeon Erythrocyte distribution width (RBC) [Ratio] 13.5 % Normal 11.0-15.0 [facility] Comment on above: Performed By: #### C BC #### [facility] [address] [place] [address] Dr. Temo Mckeon Hematocrit (Bld) [Volume fraction] 38.5 % Critically low 42.0-54.0 [facility] Comment on above: Performed By: #### C BC #### [facility] [address] [place] [address] Dr. Temo Mckeon Hemoglobin (Bld) [Mass/Vol] 12.5 g/dL Critically low 14.0-18.0 [facility] Comment on above: Performed By: #### C BC #### [facility] [address] [place] [address] Dr. Temo Mckeon IG # 0.11 10e3/ul Critically high 0.00-0.[address] [facility] Comment on above: Performed By: #### C BC #### [facility] [address] [place] [address] Dr. Temo Mckeon IG % 0.9 % Critically high 0.0-0.5 [facility] Comment on above: Performed By: #### C BC #### [facility] [address] [place] [address] Dr. Temo Mckeon LYMPH # 2.1 103/ul Normal 1.2-3.8 [facility] Comment on above: Performed By: #### C BC #### [facility] [address] [place] [address] Dr. Temo Mckeon Lymphocytes/100 WBC (Bld) 17.5 % Critically low 20.5-60.0 [facility] Comment on above: Performed By: #### C BC #### [facility] [address] [address] [address] Temo Mckeon MANUAL DIFF REQ NO Normal [facility] Comment on above: Performed By: #### C BC #### [facility] [address] [place] [address] Dr. Temo Mckeon MCH (RBC) [Entitic mass] 30.6 pg Normal 25.9-34.0 [facility] Comment on above: Performed By: #### C BC #### [facility] [address] [address] [address] Temo Mckeon MCHC (RBC) [Mass/Vol] 32.5 g/dL Normal 29.9-35.2 [facility] Comment on above: Performed By: #### C BC #### [facility] [address] [place] [address] Dr. Temo Mckeon MCV (RBC) [Entitic vol] 94.1 fL Critically high 80.0-94.0 [facility] Comment on above: Performed By: #### C BC #### [facility] [address] [place] [address] Dr. Temo Mckeon MONO # 0.9 103/ul Critically high 0.3-0.8 [facility] Comment on above: Performed By: #### C BC #### [facility] [address] [place] [address] Dr. Temo Mckeon Monocytes/100 WBC (Bld) 7.9 % Normal 1.7-12.0 [facility] Comment on above: Performed By: #### C BC #### [facility] [address] [place] [address] Dr. Temo Mckeon NEUT # 8.4 103/ul Critically high 1.4-6.5 [facility] Comment on above: Performed By: #### C BC #### [facility] [address] [place] [address] Dr. Temo Mckeon Neutrophils/100 WBC (Bld) 70.5 % Normal 43.0-75.0 [facility] Comment on above: Performed By: #### C BC #### [facility] [address] [place] [address] Dr. Temo Mckeon Platelet mean volume (Bld) [Entitic vol] 10.5 fL Normal 9.5-13.5 [facility] Comment on above: Performed By: #### C BC #### [facility] [address] [place] [address] Dr. Temo Mckeon PLT 172 103/ul Normal 150-450 [facility] Comment on above: Performed By: #### C BC #### [facility] [address] [place] [address] Dr. Temo Mckeon RBC 4.09 106/ul Critically low 4.70-6.10 [facility] Comment on above: Performed By: #### C BC #### [facility] [address] [place] [address] Dr. Temo Mckeon WBC 11.9 103/ul Critically high 4.0-11.0 [facility] Comment on above: Performed By: #### C BC #### [facility] [address] [place] [address] Dr. Temo Mckeon PROF CHEM 8 (BAS METB)on Anion gap [Moles/Vol] 14.2 mmol/L Normal [facility] Comment on above: Performed By: #### B FLIGHT CONTROL MANAGER, TSH, BMP #### [facility] [address] [place] [address] Dr. Temo Mckeon Calcium [Mass/Vol] 9.1 mg/dL Normal 8.5-10.1 [facility] Comment on above: Performed By: #### B FLIGHT CONTROL MANAGER, TSH, BMP #### [facility] [address] [place] [address] Dr. Temo Mckeon Chloride [Moles/Vol] 105 mmol/L Normal 98-107 [facility] Comment on above: Performed By: #### B FLIGHT CONTROL MANAGER, TSH, BMP #### [facility] [address] [place] [address] Dr. Temo Mckeon CO2 [Moles/Vol] 25.3 mmol/L Normal 21.0-32.0 [facility] Comment on above: Performed By: #### B FLIGHT CONTROL MANAGER, TSH, BMP #### [facility] [address] [address] [address] Temo Mckeon Creatinine [Mass/Vol] 1.72 mg/dL Critically high 0.70-1.30 [facility] Comment on above: Performed By: #### B FLIGHT CONTROL MANAGER, TSH, BMP #### [facility] [address] [address] [address] Temo Mckeon EGFR-AF [place]IZ[place] 47 mL/min/1.73m2 Critically low >=60 [facility] Comment on above: Performed By: #### B FLIGHT CONTROL MANAGER, TSH, BMP #### [facility] [address] [address] [address] Temo Mckeon EGFR-NON AF CITIZEN [place] 39 mL/min/1.73m2 Critically low >=60 [facility] Comment on above: Performed By: #### B FLIGHT CONTROL MANAGER, TSH, BMP #### [facility] [address] [address] [address] Temo Mckeon Glucose [Mass/Vol] 134 mg/dL Critically high 74-[address] [facility] Comment on above: Performed By: #### B FLIGHT CONTROL MANAGER, TSH, BMP #### [facility] [address] [address] [address] Temo Mckeon Potassium [Moles/Vol] 4.5 mmol/L Normal 3.5-5.1 [facility] Comment on above: Performed By: #### B FLIGHT CONTROL MANAGER, TSH, BMP #### [facility] [address] [address] [address] Temo Mckeon Sodium [Moles/Vol] 140 mmol/L Normal 136-145 [facility] Comment on above: Performed By: #### B FLIGHT CONTROL MANAGER, TSH, BMP #### [facility] [address] [address] [address] Temo Mckeon Urea nitrogen [Mass/Vol] 36.0 mg/dL Critically high 7.0-18.0 [facility] Comment on above: Performed By: #### B FLIGHT CONTROL MANAGER, TSH, BMP #### [facility] [address] [address] [address] Temo Mckeon Urea nitrogen/Creatinine [Mass ratio] 20.9 mg/mg Normal [facility] Comment on above: Performed By: #### B FLIGHT CONTROL MANAGER, TSH, BMP #### [facility] [address] [address] [address] Temo Mckeon TSHon 02-17-2022 TSH 1.708 uIU/mL Normal 0.358-3.740 [facility] Comment on above: Performed By: #### B FLIGHT CONTROL MANAGER, TSH, BMP #### [facility] [id number] Temo Mckeon XR KUB 1 VIEWon [...] RADU CHRISTENSEN Date: 2022-02-17 11:43 Normal [facility] METHYLMALONIC ACID (MMA)on 0 11-01-2021 Methylmalonic Acid, Serum 205 nmol/L Normal 0-378 [facility] Comment on above: Performed By: #### C BC #### [facility] [address] [place], [place] [id number] Dr. Temo Mckeon FOLATE ([facility])on 2 Folate >20.0 Normal >3.0 [facility] Comment on above: Result Comment: A se rum folate concentration of less than 3.1 ng/mL is considered to represent clinical deficiency. Performed By: #### B MP, ALT, LIPID #### [facility] [address] [address] [address] Temo Mckeon CBC AUTO DIFFon 10-29-2021 BASO # 0.1 103/ul Normal 0.0-0.1 [facility] Comment on above: Performed By: #### C BC #### [facility] [address] [address] [address] Temo Mckeon Basophils/100 WBC (Bld) 0.5 % Normal 0.2-2.0 [facility] Comment on above: Performed By: #### C BC #### [facility] [address] [address] [address] Temo Mckeon EO # 0.3 103/ul Normal 0.0-0.7 [facility] Comment on above: Performed By: #### C BC #### [facility] [address] [address] [address] Temo Mckeon Eosinophils/100 WBC (Bld) 3.3 % Normal 0.9-7.0 [facility] Comment on above: Performed By: #### C BC #### [facility] [address] [address] [address] Temo Mckeon Erythrocyte distribution width (RBC) [Ratio] 13.3 % Normal 11.0-15.0 [facility] Comment on above: Performed By: #### C BC #### [facility] [address] [address] [address] Temo Mckeon Hematocrit (Bld) [Volume fraction] 40.4 % Critically low 42.0-54.0 [facility] Comment on above: Performed By: #### C BC #### [facility] [address] [address] [address] Temo Mckeon Hemoglobin (Bld) [Mass/Vol] 13.4 g/dL Critically low 14.0-18.0 [facility] Comment on above: Performed By: #### C BC #### [facility] [address] [address] [address] Temo Mckeon IG # 0.06 10e3/ul Critically high 0.00-0.[address] [facility] Comment on above: Performed By: #### C BC #### [facility] [address] [place] [address] Dr. Temo Mckeon IG % 0.6 % Critically high 0.0-0.5 [facility] Comment on above: Performed By: #### C BC #### [facility] [address] [place] [address] Dr. Temo Mckeon LYMPH # 2.2 103/ul Normal 1.2-3.8 [facility] Comment on above: Performed By: #### C BC #### [facility] [address] [place] [address] Dr. Temo Mckeon Lymphocytes/100 WBC (Bld) 22.6 % Normal 20.5-60.0 [facility] Comment on above: Performed By: #### C BC #### [facility] [address] [place] [address] Dr. Temo Mckeon MANUAL DIFF REQ NO Normal [facility] Comment on above: Performed By: #### C BC #### [facility] [address] [place] [address] Dr. Temo Mckeon MCH (RBC) [Entitic mass] 30.8 pg Normal 25.9-34.0 [facility] Comment on above: Performed By: #### C BC #### [facility] [address] [place] [address] Dr. Temo Mckeon MCHC (RBC) [Mass/Vol] 33.2 g/dL Normal 29.9-35.2 [facility] Comment on above: Performed By: #### C BC #### [facility] [address] [place] [address] Dr. Temo Mckeon MCV (RBC) [Entitic vol] 92.9 fL Normal 80.0-94.0 [facility] Comment on above: Performed By: #### C BC #### [facility] [address] [place] [address] Dr. Temo Mckeon MONO # 0.7 103/ul Normal 0.3-0.8 [facility] Comment on above: Performed By: #### C BC #### [facility] [address] [place] [address] Dr. Temo Mckeon Monocytes/100 WBC (Bld) 7.6 % Normal 1.7-12.0 [facility] Comment on above: Performed By: #### C BC #### [facility] [address] [place] [address] Dr. Temo Mckeon NEUT # 6.2 103/ul Normal 1.4-6.5 [facility] Comment on above: Performed By: #### C BC #### [facility] [address] [place] [address] Dr. Temo Mckeon Neutrophils/100 WBC (Bld) 65.4 % Normal 43.0-75.0 [facility] Comment on above: Performed By: #### C BC #### [facility] [address] [place] [address] Dr. Temo Mckeon Platelet mean volume (Bld) [Entitic vol] 10.5 fL Normal 9.5-13.5 [facility] Comment on above: Performed By: #### C BC #### [facility] [address] [place] [address] Dr. Temo Mckeon PLT 169 103/ul Normal 150-450 [facility] Comment on above: Performed By: #### C BC #### [facility] [address] [place] [address] Dr. Temo Mckeon RBC 4.35 106/ul Critically low 4.70-6.10 [facility] Comment on above: Performed By: #### C BC #### [facility] [address] [place] [address] Dr. Temo Mckeon WBC 9.5 103/ul Normal 4.0-11.0 [facility] Comment on above: Performed By: #### C BC #### [facility] [address] [place] [address] Dr. Temo Mckeon FERRITINon 10-29-2021 Ferritin [Mass/Vol] 423.0 ng/mL Critically high 26.0-388.0 [facility] Comment on above: Performed By: #### C BC #### [facility] [address] [address] [address] Temo Mckeon IRON AND TIBCon 10-29-2021 % SATURATION 25.6 % Normal [facility] Comment on above: Performed By: #### C BC #### [facility] [address] [address] [address] Temo Mckeon Iron [Mass/Vol] 79.0 ug/dL Normal 65.0-175.0 [facility] Comment on above: Performed By: #### C BC #### [facility] [address] [address] [address] Temo Mckeon TIBC DIRECT 308.0 ug/dL Normal 250.0-450.0 [facility] Comment on above: Performed By: #### C BC #### [facility] [address] [place] [address] Dr. Temo Mckeon LIPID PROFILEon 10-29-2021 CHOL-HDL RATIO NORM SEE BELOW Normal [facility] Comment on above: Result Comment: 3.3 - 4.4 LOW RISK 4.4 - 7.1 AVERAGE RISK 7.1 - 11.0 MODERATE RISK >11.0 HIGH RISK Performed By: #### B MP, ALT, LIPID #### [facility] [address] [address] [address] Temo Mckeon Cholesterol [Mass/Vol] 93 mg/dL Normal <=200 [facility] Comment on above: Performed By: #### B MP, ALT, LIPID #### [facility] [address] [address] [address] Temo Mckeon Cholesterol in HDL [Mass/Vol] 40 mg/dL Normal 40-60 [facility] Comment on above: Performed By: #### B MP, ALT, LIPID #### [facility] [address] [address] [address] Temo Mckeon Cholesterol in LDL [Mass/Vol] 35.4 mg/dL Normal [facility] Comment on above: Performed By: #### B MP, ALT, LIPID #### [facility] [address] [address] [address] Temo Mckeon Cholesterol.total/C holesterol in HDL [Mass ratio] 2.3 {ratio} Normal [facility] Comment on above: Performed By: #### B MP, ALT, LIPID #### [facility] [address] [address] [address] Temo Mckeon HDL NORMAL > or = 60 mg/dl - LO W CARDIOVASCULAR RISK <40 mg/dl - HIGH CARDIOVASCULAR RISK Normal [facility] Comment on above: Performed By: #### B MP, ALT, LIPID #### [facility] [address] [address] [address] Temo Mckeon LDL CALC NORMAL SEE BELOW Normal [facility] Comment on above: Result Comment: <100 mg/dl OPTIMAL 100 - 129 mg/dl NEAR OR ABOVE OPTIMAL 130 - 159 mg/dl BORDERLINE HIGH 160 - 189 mg/dl HIGH >190 mg/dl VERY HIGH Performed By: #### B MP, ALT, LIPID #### [facility] [address] [address] [address] Temo Mckeon Triglyceride [Mass/Vol] 88 mg/dL Normal <=150 [facility] Comment on above: Performed By: #### B MP, ALT, LIPID #### [facility] [address] [address] [address] Temo Mckeon VLDL CALC 17.6 mg/dL Normal [facility] Comment on above: Performed By: #### B MP, ALT, LIPID #### [facility] [address] [address] [address] Temo Mckeon PROF CHEM 8 (BAS METB)on Anion gap [Moles/Vol] 14.6 mmol/L Normal [facility] Comment on above: Performed By: #### B MP, ALT, LIPID #### [facility] [address] [address] [address] Temo Mckeon Calcium [Mass/Vol] 8.8 mg/dL Normal 8.5-10.1 [facility] Comment on above: Performed By: #### B MP, ALT, LIPID #### [facility] [address] [address] [address] Temo Mckeon Chloride [Moles/Vol] 106 mmol/L Normal 98-107 [facility] Comment on above: Performed By: #### B MP, ALT, LIPID #### [facility] [address] [place] [address] Dr. Temo Mckeon CO2 [Moles/Vol] 23.8 mmol/L Normal 21.0-32.0 [facility] Comment on above: Performed By: #### B MP, ALT, LIPID #### [facility] [address] [place] [address] Dr. Temo Mckeon Creatinine [Mass/Vol] 1.57 mg/dL Critically high 0.70-1.30 [facility] Comment on above: Performed By: #### B MP, ALT, LIPID #### [facility] [address] [place] [address] Dr. Temo Mckeon EGFR-AF CITIZ[place] 52 mL/min/1.73m2 Critically low >=60 [facility] Comment on above: Performed By: #### B MP, ALT, LIPID #### [facility] [address] [place] [address] Dr. Temo Mckeon EGFR-NON AF CITIZEN [place] 43 mL/min/1.73m2 Critically low >=60 [facility] Comment on above: Performed By: #### B MP, ALT, LIPID #### [facility] [address] [place] [address] Dr. Temo Mckeon Glucose [Mass/Vol] 148 mg/dL Critically high 74-[address] [facility] Comment on above: Performed By: #### B MP, ALT, LIPID #### [facility] [address] [place] [address] Dr. Temo Mckeon Potassium [Moles/Vol] 4.4 mmol/L Normal 3.5-5.1 [facility] Comment on above: Performed By: #### B MP, ALT, LIPID #### [facility] [address] [place] [address] Dr. Temo Mckeon Sodium [Moles/Vol] 140 mmol/L Normal 136-145 [facility] Comment on above: Performed By: #### B MP, ALT, LIPID #### [facility] [address] [place] [address] Dr. Temo Mckeon Urea nitrogen [Mass/Vol] 31.0 mg/dL Critically high 7.0-18.0 [facility] Comment on above: Performed By: #### B MP, ALT, LIPID #### [facility] [address] [place] [address] Dr. Temo Mckeon Urea nitrogen/Creatinine [Mass ratio] 19.7 mg/mg Normal [facility] Comment on above: Performed By: #### B MP, ALT, LIPID #### [facility] [address] [place] [address] Dr. Temo Mckeon SGPTon 10-29-2021 ALT [Catalytic activity/Vol] 39 U/L Normal 16-63 [facility] Comment on above: Performed By: #### B MP, ALT, LIPID #### [facility] [address] [place] [address] Dr. Temo Mckeon VITAMIN B12on 10-29-2021 Cobalamin (Vitamin B12) [Mass/Vol] 675.0 pg/mL Normal 193.0-986.0 [facility] Comment on above: Performed By: #### C BC #### [facility] [address] [place] [address] Dr. Temo Mckeon XR KUB 1 VIEWon [...] MARTA HALE Date: 2021-08-29 19:34 Normal [facility] CBC AUTO DIFFon 08-21-2021 BASO # 0.0 103/ul Normal 0.0-0.1 [facility] Comment on above: Performed By: #### C BC #### [facility] [address] [place], [place] [id number] Dr. Temo Mckeon Basophils/100 WBC (Bld) 0.3 % Normal 0.2-2.0 [facility] Comment on above: Performed By: #### C BC #### [facility] [address] [place] [address] Dr. Temo Mckeon EO # 0.3 103/ul Normal 0.0-0.7 [facility] Comment on above: Performed By: #### C BC #### [facility] [address] [place] [address] Dr. Temo Mckeon Eosinophils/100 WBC (Bld) 3.2 % Normal 0.9-7.0 [facility] Comment on above: Performed By: #### C BC #### [facility] [address] [place] [address] Dr. Temo Mckeon Erythrocyte distribution width (RBC) [Ratio] 13.5 % Normal 11.0-15.0 [facility] Comment on above: Performed By: #### C BC #### [facility] [address] [place] [address] Dr. Temo Mckeon Hematocrit (Bld) [Volume fraction] 38.8 % Critically low 42.0-54.0 [facility] Comment on above: Performed By: #### C BC #### [facility] [address] [place] [address] Dr. Temo Mckeon Hemoglobin (Bld) [Mass/Vol] 12.8 g/dL Critically low 14.0-18.0 [facility] Comment on above: Performed By: #### C BC #### [facility] [address] [place] [address] Dr. Temo Mckeon IG # 0.05 10e3/ul Critically high 0.00-0.[address] [facility] Comment on above: Performed By: #### C BC #### [facility] [address] [place] [address] Dr. Temo Mckeon IG % 0.5 % Normal 0.0-0.5 [facility] Comment on above: Performed By: #### C BC #### [facility] [address] [place], [place] [id number] Dr. Temo Mckeon LYMPH # 1.8 103/ul Normal 1.2-3.8 [facility] Comment on above: Performed By: #### C BC #### [facility] [address] [place] [address] Dr. Temo Mckeon Lymphocytes/100 WBC (Bld) 19.6 % Critically low 20.5-60.0 [facility] Comment on above: Performed By: #### C BC #### [facility] [address] [place] [address] Dr. Temo Mckeon MANUAL DIFF REQ NO Normal [facility] Comment on above: Performed By: #### C BC #### [facility] [address] [place] [address] Dr. Temo Mckeon MCH (RBC) [Entitic mass] 31.1 pg Normal 25.9-34.0 [facility] Comment on above: Performed By: #### C BC #### [facility] [address] [place] [address] Dr. Tmeo Mckeon MCHC (RBC) [Mass/Vol] 33.0 g/dL Normal 29.9-35.2 [facility] Comment on above: Performed By: #### C BC #### [facility] [address] [place] [address] Dr. Temo Mckeon MCV (RBC) [Entitic vol] 94.4 fL Critically high 80.0-94.0 [facility] Comment on above: Performed By: #### C BC #### [facility] [address] [place] [address] Dr. Temo Mckeon MONO # 0.7 103/ul Normal 0.3-0.8 [facility] Comment on above: Performed By: #### C BC #### [facility] [address] [place] [address] Dr. Temo Mckeon Monocytes/100 WBC (Bld) 7.5 % Normal 1.7-12.0 [facility] Comment on above: Performed By: #### C BC #### [facility] [address] [place] [address] Dr. Temo Mckeon NEUT # 6.4 103/ul Normal 1.4-6.5 [facility] Comment on above: Performed By: #### C BC #### [facility] [address] [place] [address] Dr. Temo Mckeon Neutrophils/100 WBC (Bld) 68.9 % Normal 43.0-75.0 [facility] Comment on above: Performed By: #### C BC #### [facility] [address] [place] [address] Dr. Temo Mckeon Platelet mean volume (Bld) [Entitic vol] 10.2 fL Normal 9.5-13.5 [facility] Comment on above: Performed By: #### C BC #### [facility] [address] [place] [address] Dr. Temo Mckeon PLT 160 103/ul Normal 150-450 [facility] Comment on above: Performed By: #### C BC #### [facility] [address] [place] [address] Dr. Temo Mckeon RBC 4.11 106/ul Critically low 4.70-6.10 [facility] Comment on above: Performed By: #### C BC #### [facility] [address] [place], [place] [id number] Dr. Temo Mckeon WBC 9.3 103/ul Normal 4.0-11.0 [facility] Comment on above: Performed By: #### C BC #### [facility] [address] [place] [address] Dr. Temo Mckeon Covid-19 PCR (CVDTB)on 08-08 SARS-CoV-2 (COVID-19) RNA PRADEEP+probe Ql (Unsp spec) Not detected Normal NOT DETECTED [facility] Comment on above: Result Comment: This test is not yet approved or cleared by the [place] FDA. When there are no FDA-approved or cleared tests available, and other criteria are met, FDA can make tests available under an emergency access mechanism called an Emergency Use Authorization (EUA). The EUA for this test is supported by the Quality Assurance Tester of Health and Human Service's (HHS's) declaration [...] SARS-CoV-2. Performed By: #### C BC #### [facility] [address] [place] [address] Dr. Temo Mckeon PROF CHEM 8 (BAS METB)on Anion gap [Moles/Vol] 12.4 mmol/L Normal [facility] Comment on above: Performed By: #### C BC #### [facility] [address] [place] [address] Dr. Temo Mckeon Calcium [Mass/Vol] 8.6 mg/dL Normal 8.5-10.1 [facility] Comment on above: Performed By: #### C BC #### [facility] [address] [place] [address] Dr. Temo Mckeon Chloride [Moles/Vol] 105 mmol/L Normal 98-107 [facility] Comment on above: Performed By: #### C BC #### [facility] [address] [place] [address] Dr. Temo Mckeon CO2 [Moles/Vol] 27.0 mmol/L Normal 22.0-30.0 [facility] Comment on above: Performed By: #### C BC #### [facility] [address] [place] [address] Dr. Temo Mckeon Creatinine [Mass/Vol] 1.57 mg/dL Critically high 0.66-1.25 [facility] Comment on above: Performed By: #### C BC #### [facility] [address] [place] [address] Dr. Temo Mckeon EGFR-AF [place]IZ[place] 52 mL/min/1.73m2 Critically low >=60 [facility] Comment on above: Performed By: #### C BC #### [facility] [address] [address] [address] Temo Mckeon EGFR-NON AF CITIZEN [place] 43 mL/min/1.73m2 Critically low >=60 [facility] Comment on above: Performed By: #### C BC #### [facility] [address] [address] [address] Temo Mckeon Glucose [Mass/Vol] 145 mg/dL Critically high 74-106 [facility] Comment on above: Performed By: #### C BC #### [facility] [address] [address] [address] Temo Mckeon Potassium [Moles/Vol] 4.4 mmol/L Normal 3.4-5.0 [facility] Comment on above: Performed By: #### C BC #### [facility] [address] [address] [address] Temo Mckeon Sodium [Moles/Vol] 140 mmol/L Normal 137-145 [facility] Comment on above: Performed By: #### C BC #### [facility] [address] [address] [address] Temo Mckeon Urea nitrogen [Mass/Vol] 32.0 mg/dL Critically high 7.0-18.0 [facility] Comment on above: Performed By: #### C BC #### [facility] [address] [address] [address] Temo Mckeon Urea nitrogen/Creatinine [Mass ratio] 20.4 mg/mg Normal [facility] Comment on above: Performed By: #### C BC #### [facility] [address] [address] [address] Temo Mckeon PROTIMEon 08-21-2021 INR Coag (PPP) [Relative time] 1.04 {INR} Normal [facility] Comment on above: Performed By: #### C BC #### [facility] [address] [address] [address] Temo Mckeon INR GUIDELINES SEE BELOW Normal [facility] Comment on above: Result Comment: APPLE RED INR: 2.0 - 3.0 CONDITIONS NOT LISTED BELOW 2.5 - 3.5 FOR PROSTHETIC HEART VALVE REPLACEMENT 2.5 - 3.5 RECURRENT THROMBOSIS Performed By: #### C BC #### [facility] [address] [place] [address] Dr. Temo Mckeon PT Coag (PPP) [Time] 11.2 s Normal 9.0-11.6 [facility] Comment on above: Performed By: #### C BC #### [facility] [address] [place] [address] Dr. Temo Mckeon PTTon 08-21-2021 aPTT Coag (Bld) [Time] 25.2 s Normal 22.3-36.2 [facility] Comment on above: Performed By: #### C BC #### [facility] [address] [place] [address] Dr. Temo Mckeon XR KUB 1 VIEWon [...] TANISHA MATOS Date: 2021-07-29 09:21 Normal [facility] Covid-19 PCR (CVDTB)on 04-10 SARS-CoV-2 (COVID-19) RNA PRADEEP+probe Ql (Unsp spec) Not detected Normal NOT DETECTED [facility] Comment on above: Result Comment: This test is not yet approved or cleared by the [place] FDA. When there are no FDA-approved or cleared tests available, and other criteria are met, FDA can make tests available under an emergency access mechanism called an Emergency Use Authorization (EUA). The EUA for this test is supported by the Intervale of Health and Human Service's (HHS's) declaration [...] consistent with SARS-CoV-2. Performed By: #### C [facility] #### [facility] [address] [place], [place] [address] angio chest PE protocolon 03-07-2021 CT angio chest PE protocol [facility] [address] [place] [address] CT Scan Report Signed Patient: Mason Almanzar MR#: [id number] 71 : 1945 Acct:[id number] Age/Sex: 75 / M ADM Date: 03/07/21 Loc: CT Room: Type: [facility] Attending Dr: Erika Bender MD Ordering Provider: [...] Balwinder Zambrano M.D.03/07/2021 2:01 PM Dictation Location: [place] [address] Transcribed By: [facility] 03/07/21 1401 Dictated By: Balwinder Zambrano DO 03/07/21 1359 Signed By: 03/07/21 1401 Normal [facility] echo transthoracicon [facility] echo transthoracic [facility] [address] [place] [address] Echocardiogram Signed Patient: Mason Almanzar MR#: [id number] 71 : 1945 Acct:[id number] Age/Sex: 75 / M ADM Date: 03/07/21 Loc: [place] Room: Type: [facility] Attending Dr: Erika Bender MD Ordering Provider: Erika Bender MD Date of Service: 03/07/21 [facility] echo transthoracic: DYSPNEA Copies to: MD Genesis Shabazz [facility] BSA: 2.3 m2 BP: 174/95 mmHg HR: [...] DO 03/07/21 1351 Signed By: 03/07/21 1449 [facility] ISTAT XRay CREon 03-07-2021 Creatinine [Mass/Vol] 1.5 mg/dL High 0.6-1.3 [facility] Comment on above: Result Comment: ER/E SD physician is notified/shown all ISTAT results. Critical values may be confirmed by laboratory testing if deemed necessary by ER attending doctor. Performed By: #### I SCRE #### [address] Point of Care testing , ISTAT GFR ( 55 [facility] Comment on above: Result Comment: GFR estimated reference range: According to KDOQI guidelines, <60 ml/min/1.73m2 is sufficient to diagnose a patient with chronic kidney disease. PERFORMED BY: [place] [address] PATHOLOGIST [employer] POOJA MYERS M.D. Performed By: #### I SCRE #### [address] Point of Care testing , ISTAT GFR (Non- Am 46 [facility] Comment on above: Performed By: #### I SCRE #### [place] [address] [facility] Point of Care testing , Vital Signs Date Time Vital Sign Value Performing Clinician Facility 02-21-2024 09:11-0400 Body height 165.1 cm Rian Balderrama DPM Work Phone: [facility] 02-21-2024 09:11-0400 Body mass index (BMI) [Ratio] 49.92 kg/m2 Rian Balderrama DPM Work Phone: [facility] 02-21-2024 09:11-0400 Body weight 136.08 kg Rian Balderrama DPM Work Phone: [facility] 02-01-2023 09:30-0400 Body height 162.56 cm Elo Ball Other [facility] Other 02-01-2023 09:30-0400 Body mass index (BMI) [Ratio] 49.6 kg/m2 Leo Ball Other [facility] Other 02-01-2023 09:30-0400 Body weight 131.09 kg Leo Ball Other [facility] Other 02-01-2023 09:30-0400 Diastolic blood pressure 83 mm[Hg] Leo Ball Other [facility] Other 02-01-2023 09:30-0400 Respiratory rate 20 /min Leo Ball Other [facility] Other 02-01-2023 09:30-0400 SaO2% (BldA) [Mass fraction] 97 % Leo Ball Other [facility] Other 02-01-2023 09:30-0400 Systolic blood pressure 147 mm[Hg] Leo Ball Other [facility] Other 10-30-2022 09:00-0400 Body height 162.56 cm Leo Ball Other [facility] Other 10-30-2022 09:00-0400 Body mass index (BMI) [Ratio] 50.67 kg/m2 Leo Ball Other [facility] Other 10-30-2022 09:00-0400 Body weight 133.9 kg Leo Ball Other [facility] Other 10-30-2022 09:00-0400 Diastolic blood pressure 68 mm[Hg] Leo Ball Other [facility] Other 10-30-2022 09:00-0400 Respiratory rate 20 /min Leo Ball Other [facility] Other 10-30-2022 09:00-0400 SaO2% (BldA) [Mass fraction] 98 % Leo Ball Other [facility] Other 10-30-2022 09:00-0400 Systolic blood pressure 121 mm[Hg] Leo Ball Other [facility] Other 08-24-2022 10:32-0400 Blood Pressure Location Demetri ESTRELLA [facility] 08-24-2022 10:32-0400 Diastolic blood pressure 73 mm[Hg] Demetri ESTRELLA [facility] 08-24-2022 10:32-0400 Heart rate 59 /min Demetri ESTRELLA [facility] 08-24-2022 10:32-0400 Respiratory rate 16 /min Demetri ESTRELLA [facility] 08-24-2022 10:32-0400 Systolic blood pressure 125 mm[Hg] Demetri ESTRELLA [facility] 06-30-2022 09:00-0500 Body height 162.56 cm Leo Ball Other [facility] Other 06-30-2022 09:00-0500 Body mass index (BMI) [Ratio] 51.52 kg/m2 Leo Ball Other [facility] Other 06-30-2022 09:00-0500 Body weight 136.17 kg Leo Ball Other [facility] Other 06-30-2022 09:00-0500 Diastolic blood pressure 84 mm[Hg] Leo Ball Other [facility] Other 06-30-2022 09:00-0500 Respiratory rate 20 /min Leo Ball Other [facility] Other 06-30-2022 09:00-0500 Systolic blood pressure 128 mm[Hg] Leo Ball Other [facility] Other 02-23-2022 11:07-0400 Blood Pressure Location Demetri ESTRELLA [facility] 02-23-2022 11:07-0400 Diastolic blood pressure 74 mm[Hg] Demetri ESTRELLA [facility] 02-23-2022 11:07-0400 Heart rate 76 /min Demetri ESTRELLA [facility] 02-23-2022 11:07-0400 Respiratory rate 16 /min Demetri ESTRELLA [facility] 02-23-2022 11:07-0400 Systolic blood pressure 128 mm[Hg] Demetri ESTRELLA [facility] 08-04-2021 08:51-0400 Blood Pressure Location Demetri ESTRELLA [facility] 08-04-2021 08:51-0400 Diastolic blood pressure 72 mm[Hg] Demetri ESTRELLA [facility] 08-04-2021 08:51-0400 Heart rate 63 /min Demetri ESTRELLA [facility] 08-04-2021 08:51-0400 Respiratory rate 16 /min Demetri ESTRELLA [facility] 08-04-2021 08:51-0400 Systolic blood pressure 121 mm[Hg] Demetri ESTRELLA [facility] 04-01-2021 12:45-0500 Body height 162.56 cm Erika Bender Other [facility] Other 04-01-2021 12:45-0500 Body mass index (BMI) [Ratio] 51.15 kg/m2 Erika Bender Other [facility] Other 04-01-2021 12:45-0500 Body temperature 97.6 [degF] Erika Bender Other [facility] Other 04-01-2021 12:45-0500 Body weight 135.17 kg Erika Bender Other [facility] Other 04-01-2021 12:45-0500 Diastolic blood pressure 68 mm[Hg] Fitoal Chaban Other [facility] Other 04-01-2021 12:45-0500 Respiratory rate 20 /min Fitoal Chaban Other [facility] Other 04-01-2021 12:45-0500 SaO2% (BldA) [Mass fraction] 97 % Fitoal Chaban Other [facility] Other 04-01-2021 12:45-0500 Systolic blood pressure 140 mm[Hg] Fitoal Chaban Other [facility] Other 03-04-2021 16:15-0400 Body height 162.56 cm Fitoal Chaban Other [facility] Other 03-04-2021 16:15-0400 Body mass index (BMI) [Ratio] 51.15 kg/m2 Fitoal Chaban Other [facility] Other 03-04-2021 16:15-0400 Body temperature 98.3 [degF] Fitoal Chaban Other [facility] Other 03-04-2021 16:15-0400 Body weight 135.17 kg Fitoal Chaban Other [facility] Other 03-04-2021 16:15-0400 Diastolic blood pressure 68 mm[Hg] Fitoal Chaban Other [facility] Other 03-04-2021 16:15-0400 Respiratory rate 20 /min Fitoal Chaban Other [facility] Other 03-04-2021 16:15-0400 SaO2% (BldA) [Mass fraction] 97 % Erika Bender Other [facility] Other 03-04-2021 16:15-0400 Systolic blood pressure 148 mm[Hg] Erika Bender Other [facility] Other Encounters Encounter Date Encounter Type Care Provider Facility Start: 02-21-2024 End: 02-21-2024 Bamboo flowsheet Rian Balderrama DPM Work Phone: [facility] Start: 02-21-2024 End: 02-21-2024 Bamboo flowsheet Rian Balderrama DPM Work Phone: [facility] Start: 02-21-2024 End: 02-21-2024 Patient encounter procedure Rian Balderrama DPM Work Phone: [facility] Comment on above: Dermatophytosis of n ail (Primary Dx); Dystrophic nail; Pain around toenail, right foot; Pain around toenail, left foot Start: 02-21-2024 End: 02-21-2024 ambulatory RIAN BALDERRAMA Not Available Start: 01-31-2024 End: 01-31-2024 ambulatory [facility] Start: 01-04-2024 End: 01-04-2024 Bamboo flowsheet Rui Jimenez DO Work Phone: [facility] Start: 01-04-2024 End: 01-04-2024 Bamboo flowsheet Rui Jimenez DO Work Phone: [facility] Start: 01-04-2024 End: 01-04-2024 ambulatory RUI JIMENEZ Not Available Start: 12-29-2023 End: 12-29-2023 Bamboo flowsheet Rui Jimenez DO Work Phone: [facility] Start: 12-29-2023 End: 12-29-2023 Bamboo flowsheet Rui Jimenez DO Work Phone: [facility] Start: 12-29-2023 End: 12-29-2023 ambulatory RUI JIMENEZ Not Available Start: 11-30-2023 End: 11-30-2023 ambulatory KHUSHI KINGLUIS ALBERTO Not Available Start: 10-06-2023 End: 10-06-2023 ambulatory RIAN BALDERRAMA Not Available Start: 09-13-2023 End: 09-14-2023 ambulatory Mary Ann Villalobos MD Facility: [facility] Start: 09-06-2023 End: 09-07-2023 ambulatory Mary Ann Villalobos MD Facility: [facility] Start: 08-31-2023 End: 09-01-2023 ambulatory Orquidea Huston Facility: [facility] Start: 08-31-2023 End: 08-31-2023 Patient encounter procedure Orquidea Huston [facility] Start: 07-05-2023 End: 07-06-2023 ambulatory Mary Ann Villalobos MD Facility: [facility] Start: 06-21-2023 End: 06-22-2023 ambulatory Mary Ann Villalobos MD Facility: [facility] Start: 05-20-2023 End: 05-20-2023 ambulatory RIAN BALDERRAMA Not Available Start: 03-08-2023 End: 03-09-2023 ambulatory Mary Ann Villalobos MD Facility: [facility] Start: 02-08-2023 End: 02-09-2023 ambulatory Mary Ann Villalobos MD Facility: [facility] Start: 02-01-2023 End: 02-01-2023 ambulatory Leo Garcias Other [facility] Other Start: 02-01-2023 Office outpatient vi sit 25 minutes Leo Garcias [facility] Start: 01-13-2023 End: 01-13-2023 ambulatory Leo Garcias Other [facility] Other Start: 01-13-2023 Telephone encounter Leo Garcias [facility] Start: 11-09-2022 End: 11-09-2022 ambulatory Leo Garcias Other [facility] Other Start: 11-09-2022 Telephone encounter Leo Gracias [facility] Start: 10-30-2022 End: 10-30-2022 ambulatory Leo Garcias Other [facility] Other Start: 10-30-2022 Patient encounter procedure Leo Garcias [facility] Start: 08-24-2022 End: 08-24-2022 Patient encounter procedure Demetri ESTRELLA [facility] Start: 07-08-2022 End: 07-08-2022 ambulatory Leo Garcias Other [facility] Other Start: 07-08-2022 Telephone encounter Leo CHILDRESS [facility] Start: 06-30-2022 End: 06-30-2022 ambulatory Leo Garcias Other [facility] Other Start: 06-30-2022 Office outpatient vi sit 25 minutes Leo Garcias [facility] Start: 02-23-2022 End: 02-23-2022 Patient encounter procedure Demetri ESTRELLA [facility] [employer] Start: 02-17-2022 End: 02-18-[address] LEO GARCIAS Facility:[facility] Start: 10-29-2021 End: 10-30-[address] LEO GARCIAS Facility:[facility] Start: 10-22-2021 Adult health examination Louis funk [facility] Other [facility] Other Start: 08-28-2021 End: 08-28-[address] DEMETRI ESTRELLA Facility:[facility] Start: 08-25-2021 Encounter for preprocedural cardiovascular examination DR DEMETRI ESTRELLA [facility] Start: 08-25-2021 Encounter for preprocedural laboratory examination DR DEMETRI ESTRELLA [facility] Start: 08-25-[address] DEMETRI ESTRELLA [facility] ity:[facility] Start: 08-21-2021 End: 08-22-[address] DEMETRI ESTRELLA Facility:[facility] Start: 08-21-2021 End: 08-22-2021 Encounter for preprocedural cardiovascular examination DR DEMETRI ESTRELLA Facility:[facility] Start: 08-04-2021 End: 08-04-2021 Patient encounter procedure Demetri ESTRELLA [facility] Start: 07-29-2021 End: 07-30-[address] DEMETRI ESTRELLA Facility:[facility] Start: 05-05-2021 End: 05-05-[address] LEO GARCIAS Facility:[facility] Start: 04-01-2021 End: 04-01-2021 ambulatory Kamal Chaban Other [facility] Other Start: 04-01-2021 Office outpatient vi sit 15 minutes Kamal Chaban [facility] Start: 03-04-2021 Office outpatient ne w 45 minutes Kamal Chaban [facility] Start: 08-28-2019 Preoperative cardiovascular examination Leo Garcias Other [facility] Other Start: 07-06-2018 End: 07-07-2018 Patient encounter procedure DEFAULT PHYSICIAN Facility:[facility] Start: 07-04-2018 End: 07-05-2018 Patient encounter procedure DEFAULT PHYSICIAN Facility:[facility] Start: 07-01-2018 End: 07-02-2018 Patient encounter procedure DEFAULT PHYSICIAN Facility:[facility] Procedures Date Procedure Procedure Detail Performing Clinician Start: 01-04-2024 End: 01-04-2024 [facility] medical xm&eval intermediate estab pt HSV epithelial keratitis Rui Jimenez DO Work Phone: Comment on above: HSV epithelial kerat itis (Primary Dx) Start: 12-29-2023 End: 12-29-2023 Oph medical xm&eval chrise new pt 1/> vst HSV epithelial keratitis Rui Jimenez DO Work Phone: Comment on above: HSV epithelial kerat itis (Primary Dx) Start: 10-29-[address] BETZY GARCIAS Comment on above: Performed By: #### C BC #### [facility] [address] [place] [address] Dr. Temo Mckeon Start: 08-28-2021 Extracorporeal shock wave lithotripsy of calculus of kidney Demetri ESTRELLA Start: 01-26-2019 Cystoscopy Demetri ZIEGLER Start: 01-05-2019 Cystoscopy Demetri ZIEGLER Start: 12-16-2018 Preoperative cardiovascular examination Leo Garcias Other Start: 08-23-2015 General [...] procedure 11/30/2024 10:25 AM EDT Office Visit [facility] [address] [place] [phone] Khushi Gonzalez, MEDICAL OFFICE CLERK-FINANCIAL SYSTEMS ADMINISTRATOR [address] [place] [address] [facility] Start: 06-14-2024 End: 06-14-2024 Patient encounter procedure 06/14/2024 10:15 AM EST Procedure Visit [facility] [address] [place] [phone] Rian Balderrama, DPM [address] [place] [address] [facility] Start: 02-21-2024 End: 02-21-2024 Patient encounter procedure 02/21/2024 9:15 AM EDT Procedure Visit [facility] [address] [place] [phone] Rian Balderrama, DPM [address] [place] [address] Arrived [facility] Comment on above: Arrived Start: 01-11-2024 End: 01-11-2024 Patient encounter procedure 01/11/2024 9:30 AM EDT Procedure Visit [facility] [address] [place] [phone] Rian Balderrama, DP [address] [place] [address] [facility] Start: 01-09-2024 Influenza vaccination Influenza Vacc ine (#1) [facility] Start: 01-04-2024 End: 01-04-2024 Patient encounter procedure 01/04/2024 11:00 AM EDT Office Visit [facility] [address] [place] [address] Rui Jimenez DO [address] [place] [address] Arrived [facility] Comment on above: Arrived Start: 12-29-2023 End: 12-29-2023 Patient encounter procedure 12/29/2023 11:30 AM EDT Office Visit [facility] [address] [place] [address] Rui Jimenez DO [address] [place] [address] Arrived [facility] Comment on above: Arrived Immunizations Immunization Date Immunization Notes Care Provider Fa cili 02-09-2024 influenza, high dose seasonal, preservative-free Rian Balderrama DPM Work Phone: [facility] 02-09-2024 influenza virus vaccine, unspecified formulation Rian Balderrama DPM Work Phone: [facility] 02-01-2023 influenza virus vaccine, unspecified formulation Rui Jimenez DO Work Phone: [facility] 02-01-2023 influenza, high dose seasonal, preservative-free Leo Garcias Other [facility] [employer] Other 03-23-2022 COVID-19 Pfizer (bivalent) Leo Garcias Other [facility] Other 02-24-2022 influenza virus vaccine, split virus (incl. purified surface antigen) Leo Garcias Other [facility] Other 02-24-2022 influenza virus vaccine, unspecified formulation Rui Jimenez DO Work Phone: [facility] 02-24-2022 influenza, injectabl e, quadrivalent, preservative free Rui Jimenez DO Work Phone: [facility] 02-24-2022 Influenza, Seasonal, Quadrivalent, Adjuvanted Rui Jimenez DO Work Phone: [facility] 02-24-2022 influenza, high dose seasonal, preservative-free Leo Garcias Other [facility] Other 03-26-2021 SARS-CoV-2 (COVID-19 ) mRNA BNT-162b2 vax Demetri ESTRELLA [facility] Comment on above: Result Comment: 2021: [id number] 02-21-2021 influenza virus vaccine, split virus (incl. purified surface antigen) Leo Garcias Other [facility] Other 02-21-2021 influenza virus vaccine, unspecified formulation Rian Balderrama DPM Work Phone: [facility] 02-07-2021 influenza virus vaccine, unspecified formulation Demetri ESTRELLA [facility] 07-30-2020 COVID-19 Vaccine Pfi zer - Documentation Purposes Only Kamal Chaban Other [facility] 07-08-2020 COVID-19 Vaccine Pfi zer - Documentation Purposes Only Kamal Chaban Other [facility] 05-10-2020 SARS-CoV-2 (COVID-19 ) mRNA BNT-162b2 vax Demetri ESTRELLA [facility] Comment on above: Result Comment: pt h as had 3 shots to date 02-29-2020 influenza virus vaccine, split virus (incl. purified surface antigen) Leo Garcias Other [facility] Other 02-29-2020 influenza virus vaccine, unspecified formulation Rian DUPONTM Work Phone: [facility] 02-16-2019 influenza virus vaccine, split virus (incl. purified surface antigen) Leo Garcias Other [facility] Other 02-16-2019 influenza virus vaccine, unspecified formulation Rian Balderrama DPM Work Phone: [facility] 01-24-2018 influenza virus vaccine, split virus (incl. purified surface antigen) Leo Garcias Other [facility] Other 01-24-2018 influenza virus vaccine, unspecified formulation Demetri ESTRELLA [facility] 01-24-2018 pneumococcal Conjuga te, unspecified formulation; Translations: [Need for prophylactic vaccination against Streptococcus pneumoniae (pneumococcus)] Leo Garcias Other [facility] Other 01-24-2018 pneumococcal polysaccharide vaccine, 23 valent Demetri ESTRELLA [facility] 01-24-2018 Seasonal trivalent influenza vaccine, adjuvanted, preservative free Rui Zahler DO Work Phone: [facility] 02-18-2017 influenza virus vaccine, split virus (incl. purified surface antigen) Leo Garcias Other [facility] Other 02-18-2017 influenza virus vaccine, unspecified formulation Demetri ESTRELLA [facility] 02-18-2017 influenza, high dose seasonal, preservative-free Rui Zahler DO Work Phone: [facility] 02-12-2016 influenza virus vaccine, split virus (incl. purified surface antigen) Leo Garcias Other [facility] Other 02-12-2016 influenza virus vaccine, unspecified formulation Demetri ESTRELLA [facility] 02-12-2016 influenza, high dose seasonal, preservative-free Rui Zahler DO Work Phone: [facility] 02-28-2015 tetanus and diphther ia toxoids, adsorbed, preservative free, for adult use (5 Lf of tetanus toxoid and 2 Lf of diphtheria toxoid) Leo Garcias Other [facility] Other 02-28-2015 pneumococcal conjuga te vaccine, 13 valent Leo Garcias Other [facility] Other 02-16-2014 tetanus and diphther ia toxoids, adsorbed, preservative free, for adult use (5 Lf of tetanus toxoid and 2 Lf of diphtheria toxoid) Leo Garcias Other [facility] Other 02-08-2013 tetanus and diphther ia toxoids, adsorbed, preservative free, for adult use (5 Lf of tetanus toxoid and 2 Lf of diphtheria toxoid) Leo Garcias Other [facility] Other 02-17-2012 tetanus and diphther ia toxoids, adsorbed, preservative free, for adult use (5 Lf of tetanus toxoid and 2 Lf of diphtheria toxoid) Leo Garcias Other [facility] Other 02-13-2009 pneumococcal polysaccharide vaccine, 23 valent Leo Garcias Other [facility] Other 10-17-2003 Td(adult) unspecifie d formulation Demetri ESTRELLA [facility] 10-17-2003 tetanus and diphther ia toxoids, not adsorbed, for adult use Rui Jimenez DO Work Phone: [facility] Payers Date Payer Category Payer Private Health Insurance 2018 Medicare 1958 Medicare [id number] 2.1 [id number] 1959 Private Health Insurance [id number] 1946 Unknown [id number] 2.16.8 40.1.644191.3.579.2.647 1946 Unknown [id number] 2.16.8 40.1.513111.3.579.2.647 1946 Unknown [id number] 2.16.8 40.1.881458.3.579.2.647 1946 Unknown [id number] 2.16.84 0.1.734536.3.579.2.593 1946 Unknown [id number] 2.16.84 0.1.226176.3.579.2.593 1946 Unknown [id number] 2.16.84 0.1.966534.3.579.2.593 1946 Unknown [id number] 2.16.84 0.1.788331.3.579.2.593 1946 Unknown [id number] 2.16.84 0.1.829218.3.579.2.593 1946 Unknown [id number] 2.16.84 0.1.659014.3.579.2.593 1946 Unknown [id number] 2.16.84 0.1.187797.3.579.2.593 1946 Unknown [id number] 2.16.84 0.1.041789.3.579.2.593 1946 Unknown [id number] 2.16.8 40.1.366445.3.579.2.727 1946 Unknown [id number] 2.16. 840.1.942891.3.579.2.196 1946 Unknown [id number] 2.16. 840.1.617856.3.579.2.196 1946 Unknown [id number] 2.16. 840.1.043648.3.579.2.196 1946 Unknown [id number] 2.16. 840.1.735583.3.579.2.196 1946 Unknown [id number] 2.16. 840.1.570518.3.579.2.196 1946 Unknown [id number] 2.16. 840.1.950015.3.579.2.196 1946 Unknown [id number] 2.16.84 0.1.334273.3.579.2.1259 1946 Unknown [id number] 2.16.84 0.1.578340.3.579.2.1259 1946 Unknown [id number] 2.16.84 0.1.884825.3.579.2.1259 1946 Unknown [id number] 2.16.84 0.1.431726.3.579.2.1259 1946 Unknown [id number] 2.16.84 0.1.426939.3.579.2.1259 1946 Unknown [id number] 2.16.84 0.1.786674.3.579.2.1259 Unknown Social History Date Type Detail Facility Start: 01-30-2021 End: 10-19-2022 Tobacco smoking status Never smoked tobacco (finding) [facility] Other Start: 11-30-2023 End: 01-04-2024 Sex Assigned At Male [facility] [employer] Other Tobacco smoking status Never [facility] Start: 10-19-2022 Tobacco use and exposure Smokeless tobacco non-user [facility] Start: 12-29-2023 End: 01-04-2024 Alcoholic beverage intake Current drinker of alcohol (finding) [facility] Start: 11-30-2023 End: 01-04-2024 History of Social function [facility] Start: 10-09-2022 Alcohol Comment 1-2 drinks/mon thly or less [facility] Start: 1945 Sex assigned at Not on file [facility] Functional Status Date Assessment Result Facility 08-31-2023 Functional Status N/A [facility] 08-24-2022 Functional Status N/A [facility] 02-23-2022 Functional Status N/A [facility] Clinical Notes 12-09-2020 to 02-21-2024 Rian Balderrama, KIAHM - 02/21/2024 9:15 AM EDTPatient InstructionsRui Jimenez, DO - 01/04/2024 11:00 AM EDTRui Jimenez, DO - 12/29/2023 11:30 AM EDT Note Date & Type Note Facility 02-21-2024 [...] MOUTH EVERY DAY, Disp: , Rfl: HYDROcodone-acetaminophen ([place]) 7.5-325 MG tablet, TAKE 1 TABLET BY [...] CATARACT EXTRACTION Bilateral CORONARY ARTERY BYPASS GRAFT 2009 Carotid artery disease HEMORRHOIDECTOMY HERNIA REPAIR JOINT REPLACEMENT partial knee replacement RT ; Osteoarthritis SPINAL CORD STIMULATOR IMPLANT 08/2023 Family History Family History Problem Relation Name Age of Onset Melanoma Neg Hx Objective General Examination: GENERAL EXAMINATION: alert and oriented. Pleasant disposition. 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 His spouse, Sharon [...] or corrected. Thank you for your understanding. Rian Balderrama DPM documented in this encounter [facility] 02-21-2024 Instructions Rian Balderrama DPM - 02/21/2024 9:15 AM EDT As noted documented in this encounter [facility] 01-31-2024 Note [facility] Cardiology Clinic Note Chief Complaint: Patient [...] problems arise Shalonda Rai MD, MPH, FACC, [facility], [facility] Interventional Cardiology Pager Email: [email or web address] 01-04-2024 History of Present illness Narrative Images from the original note were not included. Assessment/Plan Diagnoses and all orders for this visit: HSV epithelial keratitis - Defect healed. Cont Acyclovir 400mg BID and Zirgan left eye (OS) TID, both until out. Stop Moxifloxacin. Start Pred Acetate left eye (OS) TID with 3 wk taper. documented in this encounter [facility] 12-29-2023 History of Present illness Narrative Images from the original note were not included. 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 He displays a marginal ulcer of left eye (OS) w/ dendritic like changes to the periphery of. Begin Acyclovir 400mg 5xs/day, Zirgan left eye (OS) 5xs/day and Moxifloxacin left eye (OS) QID. documented in this encounter [facility] 08-31-2023 Hospital Discharge instructions Patient Education [...] urethra. Follow these instructions at home: Take fyzr-bgd-ruxabhy and prescription medicines only as told by [...] provider. Document Revised: 11/12/2021 Document Reviewed: 11/12/2021 [employer] Patient Education 2022 [employer]. 08/31/2023 09:07:49 Urinary Incontinence Urinary Incontinence Urinary [...] (electrical nerve stimulation). ?For women, using a durable medical equipment repairer to prevent urine leaks. This is a [...] right after experiencing incontinence. General instructions Take aoxw-xhp-sgvzxhx and prescription medicines only as told by [...] important. Where to find more information National [place] of Diabetes and Digestive and Kidney Diseases: www.niddk.nih.gov Citizen Of [place] U[employer] Association: www.urologyhealth.org Contact a health care [...] provider. Document Revised: 11/29/2020 Document Reviewed: 11/29/2020 [employer] Patient Education 2022 [employer]. Follow Up Care 08/24/2022 11:22:07 With:ISAAC Huston APRN, [employer], CHASE, URL Address: When: Unknown Comments:1 year with AKBAR With:SAMEER MONTIEL, Demetri Sequeira, URL Address: [facility] [address] [place] [address]- [phone] When: Unknown [facility] 02-01-2023 Evaluation note Encounter Date Diagnosis [...] use, the patient reduces the risk for MN, CVA, HTN, cardiac dysrhythmias and sudden cardiac [...] in remission (ICD-10 - F17.211) Continue abstinence [facility] Other 09-06-2023 Evaluation note* Encounter Date Diagnosis Assessment Notes Treatment Notes Treatment Clinical Notes Jan, Lumbosacral spondylosis with radiculopathy (ICD-10 - M47.27) [facility] Other 06-23-2023 Evaluation note* Encounter Date Diagnosis [...] use, the patient reduces the risk for MN, CVA, HTN, cardiac dysrhythmias and sudden cardiac [...] High risk medication use (ICD-10 - Z79.899) [facility] Other 04-17-2023 Hospital Discharge instructions Patient Education [...] urethra. Follow these instructions at home: Take abcp-kov-tsgzchf and prescription medicines only as told by [...] 04/26/2006 Document Revised: 03/21/2019 Document Reviewed: 05/31/2017 [employer] Patient Education 2020 [employer]. 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 Follow Up Care 08/28/2021 11:53:17 With:SAMEER MONTIEL, LEXUS Carson Address: [facility] [address] [place] [address]- [phone] When:08/24/2022 [facility] 03-28-2022 Hospital Discharge instructions Patient Education 08/04/2021 [...] Follow these instructions at home: Medicines Take sbau-gsn-whdnbyu and prescription medicines only as told by [...] 05/15/2008 Document Revised: 08/07/2019 Document Reviewed: 03/17/2017 [employer] Patient Education 2020 [employer]. 08/04/2021 09:25:02 Calorie Counting for Weight Loss [...] 04/26/2006 Document Revised: 01/13/2019 Document Reviewed: 03/26/2017 [employer] Patient Education 2020 [employer]. 08/04/2021 09:24:51 Benign Prostatic Hyperplasia Benign Prostatic [...] urethra. Follow these instructions at home: Take rzea-mfk-rqylbyr and prescription medicines only as told by [...] 04/26/2006 Document Revised: 03/21/2019 Document Reviewed: 05/31/2017 [employer] Patient Education 2020 [employer]. Follow Up Care 01/30/2021 10:09:00 With:SAMEER MONTIEL, Demetri Sequeira, URL Address: [facility] [address], [place] [address]- [phone] When: Unknown Comments:Will schedule RT ESWLF/u in 3-4 month due to new medication [facility] 11-23-2021 Evaluation note* Encounter Date Diagnosis Assessment Notes Treatment Notes Treatment Clinical Notes Mar, Dyspnea on exertion (ICD-10 - R06.00) Mar, Leg edema (ICD-10 - R60.0) [facility] Other 10-26-2021 Evaluation note* Encounter Date Diagnosis Assessment Notes Treatment Notes Treatment Clinical Notes Feb, Dyspnea on exertion (ICD-10 - R06.00) Feb, Leg edema (ICD-10 - R60.0) [facility] Other 08-02-2021 NoteHNO ID: [id number] Author: Amara Esqueda MD Service: ? Author [...] relevant components. Amara Esqueda MD [facility] Future App[facility]ments Appointment Date:11/07/2021 09:30:00 AM Scheduled Provider:Demetri ESTRELLA MD Location:[facility] Appointment Type:URO Office Visit [facility] evaluation + Plan note Future Appointments Appointment Date:08/24/2022 10:30:00 AM Scheduled Provider:Demetri ESTRELLA MD Location:[facility] Appointment Type:URO Office Visit [facility] evaluation + Plan note Future Appointments Appointment Date:03/01/2023 09:15:00 AM Scheduled Provider:Demetri ESTRELLA MD Location:[facility] Appointment Type:URO Office Visit [facility] evaluation noteNo [employer] Other Evaluation note* Diagnosis Dermatophytosis of nail- Primary Dystrophic nail Other specified disease of nail Pain around toenail, right foot Pain around toenail, left foot [facility] Diagnosis HSV epithelial keratitis- Primary [facility] Diagnosis HSV epithelial keratitis- Primary [facility] Narrative - Reported* Type Description Date Medical History ADITHYA Medical History hypertension Medical History heart disease Surgical History bypass triple Surgical History 2 knee replacements Surgical History hiatal hernia Surgical History cataract x 2 Hospitalization History as above [facility] Other History general Narrative - Reported* Type [...] OF KIDNEY STONE Hospitalization History as above [facility] Other Hospital course Narrative No data available for this section [facility] progress note No data available for this section [facility] Summary Purpose Family History No Family [...] 1 Lumbar spondylosis ( M47.816) Referral Organization [facility] yashira Referring Provider First Name Leo Referring Provider Last Name Dieter Referring Provider Specialty Internal Me dicine Referred Organization [facility] Referred Provider Samantha Contreras Referred Address [address], [place],[address] Referred Provider Specialty Pain Medicin e Referral [...] section and content) DATE CREATED AUTHOR 07/07/2018 [facility] DATE CREATED AUTHOR AUTHOR'S ORGANIZ ATION 12/09/2020 [facility] DATE CREATED AUTHOR AUTHOR'S ORGANIZ ATION 03/10/2021 [facility] DATE CREATED AUTHOR AUTHOR'S ORGANIZ ATION 03/01/2022 [facility] DATE CREATED AUTHOR AUTHOR'S ORGANIZ ATION 09/01/2023 [facility] DATE CREATED AUTHOR AUTHOR'S ORGANIZ ATION 09/23/2023 [facility] DATE CREATED AUTHOR AUTHOR'S ORGANIZ ATION 02/01/[address] [facility] DATE CREATED AUTHOR AUTHOR'S ORGANIZ ATION 02/22/2024 [facility] EPIC REASON FOR VISIT (unrecogniz ed section and content) Reason Comments Toenail Care SS: 11 Reason Comments Eye Problem Conjunctivitis Reason Comments Follow-up Patient Care team informatio n (unrecognized section and content) Web Designer Developer Relationship Specialty Start Date End Date Leo Garcias MD [address] [place] [address] PCP - General Internal Medicine 10/08/22 Web Designer Developer Relationship Specialty Start Date End Date Leo Garcias MD [address] [place] [address] PCP - General Internal Medicine 10/08/22 Web Designer Developer Relationship Specialty Start Date End Date Leo Garcias MD [address] [place] [address] PCP - General Internal Medicine 10/08/22 Web Designer Developer Relationship Specialty Start Date End Date Leo Garcias MD [address] [place] [address] PCP - General Internal Medicine 10/08/22 Web Designer Developer Relationship Specialty Start Date End Date Leo Garcias MD [address] [place] [address] PCP - General Internal Medicine 10/08/22 Web Designer Developer Relationship Specialty Start Date End Date Leo Garcias MD [address] [place] [address] PCP - General Internal Medicine 10/08/22 FOR [...] BE BASED ON THE PRIMARY CLINICAL RECORDS. [facility] [facility]. provides no warranty or guarantee of the accuracy or completeness of information in this document.
[2024-06-13 09:50] LABS: Basophils Percent Auto 0.3 % (0.2-2.0); Eosinophils Absolute Auto 0.3 10^3/uL (0.0-0.7); Eosinophils Percent Auto 2.9 % (0.9-7.0); Hematocrit 39.3 % (42.0-54.0); Hemoglobin 12.5 g/dL (14.0-18.0); Immature Granulocytes Abs Auto 0.25 10^3/uL (0.00-0.03); Immature Granulocytes Pct Auto 2.3 % (0.0-0.5); Lymphocytes Absolute Auto 1.9 10^3/uL (1.2-3.8); Mean Corpuscular HGB Conc 31.8 g/dL (29.9-35.2); Mean Corpuscular Hemoglobin 30.8 pg (25.9-34.0); Mean Corpuscular Volume 96.8 fL (80.0-94.0); Mean Platelet Volume 10.7 fL (9.5-13.5); Monocytes Absolute Auto 0.7 10^3/uL (0.3-0.8); Monocytes Percent Auto 6.3 % (1.7-12.0); Neutrophils Absolute Auto 7.9 10^3/uL (1.4-6.5); Neutrophils Percent Auto 71.2 % (43.0-75.0); Platelet Count 178 10^3/uL (150-450); Red Blood Count 4.06 10^6/uL (4.70-6.10); Red Cell Distribution Width 13.5 % (11.0-15.0); White Blood Count 11.1 10^3/uL (4.0-11.0)
[2024-06-13 10:07] LABS: Anion Gap 14.3; BUN Creatinine Ratio 16.9; Calcium 8.5 mg/dL (8.5-10.1); Carbon Dioxide 26.2 mmol/L (21.0-32.0); Chloride 105 mmol/L (98-107); Estimated GFR (African America 45 (>=60 mL/min/1.73m^2); Estimated GFR (Non-African Ame 37 (>=60 mL/min/1.73m^2); Glucose 235 mg/dL (74-106); Potassium 4.5 mmol/L (3.5-5.1); Sodium 141 mmol/L (136-145)
[2024-06-13 10:12] LABS: Estimated Average Glucose 146 mg/dL; Glycohemoglobin A1C 6.7 % (4.5-6.2)
[2024-06-13 14:09] LABS: Creatinine Urine Random 183.52 mg/dL (20.00-300.00); Microalbumin Urine Random 4.6 mg/dL (<=30.0)
== END 2024-06-13 09:14 | disposition home or self-care (01) ==
LOC: LAB 09:14
PROVIDERS: PCP Internal Medicine; Visit Provider Internal Medicine
DX: R73.01 Impaired fasting glucose (principal); N18.32 Chronic kidney disease, stage 3b; D64.9 Anemia, unspecified; I12.9 Hypertensive chronic kidney disease with stage 1 through stage 4 chronic kidney disease, or unspecified chronic kidney disease
CPT/HCPCS: 36415; 80048; 82043; 82570; 83036; 85025

== ENCOUNTER 2024-07-02 10:17 | Emergency (ER) | payer MEDICARE, OTHER, SELFPAY ==
[2024-07-02 10:23] VITALS: BP 110/70; PULSE 74; TEMP 36.6; O2SAT 96; BMI 49.9
--- OUTSIDE RECORDS SUMMARY | 2024-07-02 10:29 | XMS_ITS | CCD ---
Author Organization [facility] Team Providers Care Automation Clerk Name Role Phone PHYSICIAN, DEFAULT Admitting Unavailable PHYSICIAN, DEFAULT Attending Unavailable [place], LEO Primary Care Unavailable PHYSICIAN, DEFAULT Admitting Unavailable PHYSICIAN, DEFAULT Attending Unavailable [place], LEO Primary Care Unavailable PHYSICIAN, DEFAULT Admitting Unavailable PHYSICIAN, DEFAULT Attending Unavailable [place], LEO Primary Care Unavailable [place], LEO Primary Care Physician [phone] Erika Bender Unavailable JAMAICA, DR VAZQUEZ Primary [...] VAZQUEZ Primary Care Unavailable [place], Leo Unavailable Wilfredo MONTIEL, Mary Ann Chacko Attending Unavailable Wilfredo MONTIEL, Andrius Chacko Attending Unavailable Wilfredo MONTIEL, Andrius Ricco Attending Unavailable Wilfredo MONTIEL, Mary Ann Chacko Attending Unavailable Wilfredo MONTIEL, Mary Ann Chacko Attending Unavailable Wilfredo MONTIEL, Mary Ann Chacko Attending Unavailable SHALONDA RAI Attending Unavailable Leo Garcias MD Primary Care Provider ERWIN WADDELL Attending Unavailable Orquidea Huston Attending Unavailable CLAUDETTE BALDERRAMA Attending Unavailable CLAUDETTE BALDERRAMA Attending Unavailable ILENE GONZALEZ Attending Unavailable RUI JIMENEZ Attending Unavailable RUI JIMENEZ Attending Unavailable CLAUDETTE BALDERRAMA Attending Unavailable Allergies Allergy Classification Reported Allergen(s) Allergy Type Date of Onset Reaction(s) Facility (1 source) 81088,00; Translations: [92524,00] Propensity to adverse reactions (disorder) 9 [facility] Repository (2 sources) patient allergy list reviewed by nurse or physicia Propensity to adverse reactions 9 Comment:Done [employer] Other (1 source) No Known Medication Allergies; Translations: [No Known Medication Allergies] Propensity to adverse reactions (disorder) [facility] Repository Medications Current Medications Medication Drug Class(es) Dates Sig (Normalized) Sig (Original) acetaminophen 500 mg oral tablet (13 sources) Start: 10-27-2019 Tylenol 500 mg, Oral, Refills(s) 0 Start Date: 10/27/19 Status: Ordered take 1 tablet by mouth every fou r hours Tylenol 325 MG 1 tablet as needed Orally every 4 hrs Not-Taking acetaminophen 325 mg / HYDROcodone bitartrate 7.5 mg oral tablet (3 sources) Opioid Agonist Start: 09-22-2023 take 1 tablet by mouth three times daily as needed for pain HYDROcodone-acetaminophen ([place]) 7.5-325 MG tablet TAKE 1 TABLET BY [...] / benazepril hydrochloride 20 mg oral capsule (19 sources) Dihydropyridine Calcium Channel Oj, Angiotensin Converting [...] / vitamin e 6.75 mg chewable tablet (8 sources) Nicotinic Acid, Vitamin A, Vitamin B12, Vitamin D, Vitamin C Pediatric Multivitam ins-Fl (MultiVitamin + Fluoride) 0.25 MG chewable tablet Multivitamin Active Aspir-81 (9 sources) Aspir-81 Active Aspirin (12 sources) Platelet Aggregation Inhibitor, Nonsteroidal Anti-inflammatory Drug Start: 10-27-2019 aspirin 81 mg, Refills(s) 0 Start Date: 10/27/19 Status: Ordered Start: 06-10-2009 take 2 tablets by mo uth once daily aspirin ([place]) 81 MG capsule chew 2 tablet (162MG) by ORAL route every day Oral 06/10/2009 Active atorvastatin 80 mg oral tablet (20 sources) HMG-CoA Reductase Inhibitor Start: 06-10-2009 atorvastatin (Lipito r) 80 MG tablet 06/10/2009 Active Start: 06-10-2009 take 0.5 tablet by m outh once at bedtime atorvastatin (Lipitor) 20 MG tablet take 0.5 tablet (10MG) by ORAL route every bedtime Oral 06/10/2009 Active citalopram 20 mg oral tablet (20 sources) Serotonin Reuptake Inhibitor Start: 06-10-2009 take [...] Oral 06/10/2009 Active EXTRA STRENGTH ACETAMINOPHEN PO (8 sources) EXTRA STRENGTH ACETAMINOPHEN PO Extra Strength Acetaminophen Active finasteride 5 mg oral tablet (19 sources) 5-alpha Reductase Inhibitor Start: 01-30-2021 take 1 tablet by mouth once daily finasteride 5 mg Tab 5 mg = 1 tab(s), Oral, Daily, # 90 tab(s), Refills(s) 3, Pharmacy: [facility]/pharmacy #[id number], 164, cm, 08/24/22 10:54:00 EDT, Height/Length Dosing, 138, kg, 08/24/22 10:54:00 EDT, Weight Dosing Start Date: 01/19/23 Status: Ordered Lasix (20 sources) Loop Diuretic Start: 10-27-2019 Lasix 20 [...] day Active ganciclovir 0.0015 mg/mg ophthalmic gel (7 sources) Cytomegalovirus Nucleoside Analog DNA Polymerase Inhibitor, [...] tablet Isosorbide Mononitrate Active Imdur Active latanoprost (17 sources) Prostaglandin Analog LATANOPROST OP Latanoprost Active take 1 drop(s) into the eye(s) once daily in the evening Latanoprost 0.005 % 1 drop into affected eye in the evening Ophthalmic Once a day Not-Taking 24 hr metoprolol succinate 50 mg extended release oral tablet (20 sources) beta-Adrenergic Oj Start: 06-10-2009 take 1 tablet by mouth once daily metoprolol succinate XL (Toprol-XL) 50 MG 24 hr tablet take 1 tablet (50MG) by ORAL route every day Oral 06/10/2009 Active moxifloxacin 5 mg/ml ophthalmic solution (7 sources) Quinolone Antimicrobial Start: 12-29-2023 moxifloxacin (Vigamox) [...] chloride 15 mg extended release oral tablet (19 sources) Cholinergic Muscarinic Antagonist Start: 06-25-2023 take 1 tablet by mouth once daily oxybutynin 15 mg ER Tab 15 mg = 1 tab(s), Oral, Daily, # 90 tab(s), Refills(s) 3, Pharmacy: [facility]/pharmacy #[id number], 164, cm, 08/24/22 10:54:00 EDT, [...] Daily, # 30 tab(s), Refills(s) 11, Pharmacy: [facility]/pharmacy #[id number], 164, cm, 08/04/21 8:56:00 EDT, Height/Length Dosing, 139, kg, 08/04/21 8:56:00 EDT, Weight Dosing Start Date: 08/04/21 Status: Ordered take 1 tablet by [facility] every twenty-four hours in the morning oxybutynin XL (Ditropan-XL) 15 MG 24 hr tablet Take 15 mg by mouth in the morning. Do not crush, chew, or split.. Active prednisoLONE acetate 10 mg/ml ophthalmic suspension (5 sources) Corticosteroid Start: 01-04-2024 prednisoLONE acetate (Pred-Forte) 1 % ophthalmic suspension Indications: HSV epithelial keratitis 1 drop, left eye (OS), 3xs/day for 1wk, 2xs/day for 1wk, then daily for 1wk, then stop. 5 mL 01/04/2024 Active tamsulosin hydrochloride 0.4 mg oral capsule (20 sources) alpha-Adrenergic Oj Start: 07-12-2023 take 1 capsule by mouth twice daily tamsulosin 0.4 mg Cap 0.4 mg = 1 cap(s), Oral, BID, # 180 cap(s), Refills(s) 3, Pharmacy: [facility]/pharmacy #[id number], 164, cm, 08/24/22 10:54:00 EDT, Height/Length Dosing, 138, kg, 08/24/22 10:54:00 EDT, Weight Dosing Start Date: 07/12/23 Status: Ordered Start: 06-26-2022 take 1 capsule by mo [facility] twice daily tamsulosin 0.4 mg Cap 0.4 mg = 1 cap(s), Oral, BID, # 180 cap(s), Refills(s) 3, Pharmacy: [facility]/pharmacy #[id number], 164, cm, 02/23/22 11:10:00 EDT, Height/Length Dosing, 139, kg, 02/23/22 11:10:00 EDT, Weight Dosing Start Date: 06/26/22 Status: Ordered Start: 02-23-2022 End: 06-23-2022 take 1 capsule by mouth twice daily tamsulosin 0.4 mg Cap 0.4 mg = 1 cap(s), Oral, BID, X 30 day(s), # 60 cap(s), Refills(s) 3, Pharmacy: [facility]/pharmacy #[id number], 164, cm, 02/23/22 11:10:00 EDT, Height/Length Dosing, 139, kg, 02/23/22 11:10:00 EDT, Weight Dosing Start Date: 02/23/22 Stop Date: 06/23/22 Status: Ordered Start: 11-22-2020 End: 11-17-2021 take 1 capsule by mouth twice daily Flomax 0.4 mg Cap 0.4 mg = 1 cap(s), Oral, BID, X 90 day(s), # 180 cap(s), Refills(s) 3, [id number], cm, 07/26/20 9:40:00 EDT, Height/Length Dosing, 138.5, kg, 07/26/20 9:40:00 EDT, Weight Dosing Start Date: 11/22/20 Stop Date: 11/17/21 Status: Ordered tamsulosin (Flom ax) 0.4 MG 24 hr capsule 1 capsule 1 (one) time each day at the same time. 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] Chronic Deficiency [...] episode, unspecified] Onset: 08-25-2021 08-14-2021 Chronic Mycoses (2 sources) Onychomycosis due to dermatophyte ; Translations: [Tinea unguium] 02-21-2024 Episodic Osteoarthritis (2 sources) Osteoarthritis; Translations: [Polyosteoarthritis, unspecified] Chronic Other aftercare (3 sources) Other usp (current) drug therapy; Translations: [OTH ALF CURRENT DRUG THERAPY] Onset: 08-25-2021 Episodic Other aftercare (2 sources) Long-term current use of drug therapy; Translations: [Other usp (current) drug therapy] Episodic Other and ill-defined [...] residual deficits] Episodic Other connective tissue disease (4 sources) Pain in toe; Translations: [Pain in [...] Onset: 01-31-2014 Episodic Other nervous system disorders (8 sources) Difficulty walking; Translations: [Difficulty in walking, [...] done] Onset: 10-30-2021 Episodic Other skin disorders (2 sources) Dystrophia unguium; Translations: [Nail dystrophy] 02-21-2024 Episodic [...] Translations: [Undiagnosed cardiac murmurs] Onset: 06-08-2016 Episodic Inflammation; infection of eye (except that caused by tuberculosis or sexually transmitteddisease) (9 sources) Herpes simplex virus epithelial keratitis; 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] Onset: 12-29-2023 12-29-2023 Episodic Nonspecific chest pain (2 sources) Chest pain; Translations: [Chest pain, unspecified] Resolved: 01-08-2021 Episodic Other aftercare (1 source) intermediate (current) use of anticoagulants; Translations: [ALF CURRNT USE ANTICOAGULANTS] Onset: 08-29-2021 Episodic Other aftercare (1 source) intermediate (current) use of antithrombotics/ant iplatelets; Translations: [MAIL WEIGHER ANTITHROMBOT/ANTIPL ATLETS] Onset: 08-25-2021 Episodic Other and [...] Range Facility Office Visiton 01-31-2024 Follow-up visit [id number] Ralph Almanzar 1945 M Date Provider Department Center 01/31/2024 [id number], EHAB CARD [facility] No family history on file Level of Service:30544 SC OFFICE/OUTPATIENT ESTABLISHED MOD MDM 30 MIN Normal [facility] Patient Educationon 08-31-19 24 Patient Education Urology [...] Follow these instructions at home: ? Take [id number] and prescription medicines only as told by [...] medicine (more content not included)... Normal [facility] Urology Office/Clinic Noteon 08-31-2023 Urology [...] with voice recognition artificial intelligence software, specifically [employer], [employer] and or walkby. Substitutions may have occurred due to the [...] Urnls Dip Stick Auto w/o Microscopy POC 95119 3. 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 Normal [facility] Comment on above: Result Comment: Elec tronically Signed By: ISAAC Huston APRN, [place] X\.br\Date and Time Signed: 08/31/23 09:08 EDT RAD - MISCon 08-17-2023 RAD - MISC [id number] IFF Normal [facility] BNPon 02-17-2022 Natriuretic peptide B (Bld) [Mass/Vol] 330.0 pg/mL Normal <=1,800.0 [facility] Comment on above: Performed By: #### B RIGHT OF WAY MANAGER, TSH, BMP #### [facility] [address] [place] [address] Dr. Temo Mckeon CBC AUTO DIFFon 02-17-2022 BASO # 0.1 103/ul Normal 0.0-0.1 [facility] Comment on above: Performed By: #### C BC #### [facility] [address] [place] [address] Dr. Temo Mckeon Basophils/100 WBC (Bld) 0.4 % Normal 0.2-2.0 [facility] Comment on above: Performed By: #### C BC #### [facility] [address] [place] [address] Dr. Temo Mckeon EO # 0.3 103/ul Normal 0.0-0.7 [facility] Comment on above: Performed By: #### C BC #### [facility] [address] [place] [address] Dr. Temo Mckeon Eosinophils/100 WBC (Bld) 2.8 % Normal 0.9-7.0 [facility] Comment on above: Performed By: #### C BC #### [facility] [address] [place] [address] Dr. Temo Mckeon Erythrocyte distribution width (RBC) [Ratio] 13.5 % Normal 11.0-15.0 [facility] Comment on above: Performed By: #### C BC #### [facility] [address] [place] [address] Dr. Temo Mckeon Hematocrit (Bld) [Volume fraction] 38.5 % Critically low 42.0-54.0 [facility] Comment on above: Performed By: #### C BC #### [facility] [address] [place] [address] Dr. Temo Mckeon Hemoglobin (Bld) [Mass/Vol] 12.5 g/dL Critically low 14.0-18.0 [facility] Comment on above: Performed By: #### C BC #### [facility] [address] [place] [address] Dr. Temo Mckeon IG # 0.11 10e3/ul Critically high 0.00-0.03 [facility] Comment on above: Performed By: #### C BC #### [facility] [address] [place] [address] Dr. Temo Mckeon IG % 0.9 % Critically high 0.0-0.5 [facility] Comment on above: Performed By: #### C BC #### [facility] [address] [place] [address] Dr. Temo Mckeon LYMPH # 2.1 103/ul Normal 1.2-3.8 [facility] Comment on above: Performed By: #### C BC #### [facility] [address] [place] [address] Dr. Temo Mckeon Lymphocytes/100 WBC (Bld) 17.5 % Critically low 20.5-60.0 [facility] Comment on above: Performed By: #### C BC #### [facility] [address] [place] [address] Dr. Temo Mckeon MANUAL DIFF REQ NO Normal [facility] Comment on above: Performed By: #### C BC #### [facility] [address] [place] [address] Dr. Temo Mckeon MCH (RBC) [Entitic mass] 30.6 pg Normal 25.9-34.0 [facility] Comment on above: Performed By: #### C BC #### [facility] [address] [place] [address] Dr. Temo Mckeon MCHC (RBC) [Mass/Vol] 32.5 g/dL Normal 29.9-35.2 [facility] Comment on above: Performed By: #### C BC #### [facility] [address] [place] [address] Dr. Temo Mckeon MCV (RBC) [Entitic vol] 94.1 fL Critically high 80.0-94.0 [facility] Comment on above: Performed By: #### C BC #### [facility] [address] [place] [address] Dr. Temo Mckeon MONO # 0.9 103/ul Critically high 0.3-0.8 [facility] Comment on above: Performed By: #### C BC #### [facility] [address] [place] [address] Dr. Temo Mckeon Monocytes/100 WBC (Bld) 7.9 % Normal 1.7-12.0 [facility] Comment on above: Performed By: #### C BC #### [facility] [address] [place] [address] Dr. Temo Mckeon NEUT # 8.4 103/ul Critically high 1.4-6.5 [facility] Comment on above: Performed By: #### C BC #### [facility] [address] [place] [address] Dr. Temo Mckeon Neutrophils/100 WBC (Bld) 70.5 % Normal 43.0-75.0 [facility] Comment on above: Performed By: #### C BC #### [facility] [address] [place] [address] Dr. Temo Mckeon Platelet mean volume (Bld) [Entitic vol] 10.5 fL Normal 9.5-13.5 [facility] Comment on above: Performed By: #### C BC #### [facility] [address] [place] [address] Dr. Temo Mckeon PLT 172 103/ul Normal 150-450 [facility] Comment on above: Performed By: #### C BC #### [facility] [address] [place] [address] Dr. Temo Mckeon RBC 4.09 106/ul Critically low 4.70-6.10 [facility] Comment on above: Performed By: #### C BC #### [facility] [address] [place] [address] Dr. Temo Mckeon WBC 11.9 103/ul Critically high 4.0-11.0 [facility] Comment on above: Performed By: #### C BC #### [facility] [address] [place] [address] Dr. Temo Mckeon PROF CHEM 8 (BAS METB)on Anion gap [Moles/Vol] 14.2 mmol/L Normal [facility] Comment on above: Performed By: #### B RIGHT OF WAY MANAGER, TSH, BMP #### [facility] [address] [place] [address] Dr. Temo Mckeon Calcium [Mass/Vol] 9.1 mg/dL Normal 8.5-10.1 [facility] Comment on above: Performed By: #### B RIGHT OF WAY MANAGER, TSH, BMP #### [facility] [address] [place] [address] Dr. Temo Mckeon Chloride [Moles/Vol] 105 mmol/L Normal 98-107 [facility] Comment on above: Performed By: #### B RIGHT OF WAY MANAGER, TSH, BMP #### [facility] [address] [place] [address] Dr. Temo Mckeon CO2 [Moles/Vol] 25.3 mmol/L Normal 21.0-32.0 [facility] Comment on above: Performed By: #### B RIGHT OF WAY MANAGER, TSH, BMP #### [facility] [address] [address] [address] Temo Mckeon Creatinine [Mass/Vol] 1.72 mg/dL Critically high 0.70-1.30 [facility] Comment on above: Performed By: #### B RIGHT OF WAY MANAGER, TSH, BMP #### [facility] [address] [address] [address] Temo Mckeon EGFR-AF CONGOLESE 47 mL/min/1.73m2 Critically low >=60 [facility] Comment on above: Performed By: #### B RIGHT OF WAY MANAGER, TSH, BMP #### [facility] [address] [place] [address] Dr. Temo Mckeon EGFR-NON AF CONGOLESE 39 mL/min/1.73m2 Critically low >=60 [facility] Comment on above: Performed By: #### B RIGHT OF WAY MANAGER, TSH, BMP #### [facility] [address] [place] [address] Dr. Temo Mckeon Glucose [Mass/Vol] 134 mg/dL Critically high 74-106 [facility] Comment on above: Performed By: #### B RIGHT OF WAY MANAGER, TSH, BMP #### [facility] [address] [place] [address] Dr. Temo Mckeon Potassium [Moles/Vol] 4.5 mmol/L Normal 3.5-5.1 [facility] Comment on above: Performed By: #### B RIGHT OF WAY MANAGER, TSH, BMP #### [facility] [address] [place] [address] Dr. Temo Mckeon Sodium [Moles/Vol] 140 mmol/L Normal 136-145 [facility] Comment on above: Performed By: #### B RIGHT OF WAY MANAGER, TSH, BMP #### [facility] [address] [place] [address] Dr. Temo Mckeon Urea nitrogen [Mass/Vol] 36.0 mg/dL Critically high 7.0-18.0 [facility] Comment on above: Performed By: #### B RIGHT OF WAY MANAGER, TSH, BMP #### [facility] [address] [place] [address] Dr. Temo Mckeon Urea nitrogen/Creatinine [Mass ratio] 20.9 mg/mg Normal [facility] Comment on above: Performed By: #### B RIGHT OF WAY MANAGER, TSH, BMP #### [facility] [address] [place], [place] [address] Dr. Temo Mckeon TSHon 02-17-2022 TSH 1.708 uIU/mL Normal 0.358-3.740 [facility] Comment on above: Performed By: #### B RIGHT OF WAY MANAGER, TSH, BMP #### [facility] [address] [id number] Temo Mckeon XR KUB 1 VIEWon [...] RADU CHRISTENSEN Date: 2022-02-17 11:43 Normal [facility] METHYLMALONIC ACID (MMA)on 0 11-01-2021 Methylmalonic Acid, Serum 205 nmol/L Normal 0-378 [facility] Comment on above: Performed By: #### C BC #### [facility] [address] [id number] Temo Mckeon FOLATE ([facility])on 2 Folate >20.0 Normal >3.0 [facility] Comment on above: Result Comment: A se rum folate concentration of less than 3.1 ng/mL is considered to represent clinical deficiency. Performed By: #### B MP, ALT, LIPID #### [facility] [address] [address] [address] Temo Mckeon CBC AUTO DIFFon 10-29-2021 BASO # 0.1 103/ul Normal 0.0-0.1 [facility] Comment on above: Performed By: #### C BC #### [facility] [address] [address] [address] Temo Mckeon Basophils/100 WBC (Bld) 0.5 % Normal 0.2-2.0 [facility] Comment on above: Performed By: #### C BC #### [facility] [address] [address] [address] Temo Mckeon EO # 0.3 103/ul Normal 0.0-0.7 [facility] Comment on above: Performed By: #### C BC #### [facility] [address] [place] [address] Dr. Temo Mckeon Eosinophils/100 WBC (Bld) 3.3 % Normal 0.9-7.0 [facility] Comment on above: Performed By: #### C BC #### [facility] [address] [place] [address] Dr. Temo Mckeon Erythrocyte distribution width (RBC) [Ratio] 13.3 % Normal 11.0-15.0 [facility] Comment on above: Performed By: #### C BC #### [facility] [address] [place] [address] Dr. Temo Mckeon Hematocrit (Bld) [Volume fraction] 40.4 % Critically low 42.0-54.0 [facility] Comment on above: Performed By: #### C BC #### [facility] [address] [place] [address] Dr. Temo Mckeon Hemoglobin (Bld) [Mass/Vol] 13.4 g/dL Critically low 14.0-18.0 [facility] Comment on above: Performed By: #### C BC #### [facility] [address] [place] [address] Dr. Temo Mckeon IG # 0.06 10e3/ul Critically high 0.00-0.03 [facility] Comment on above: Performed By: #### C BC #### [facility] [address] [place] [address] Dr. Temo Mckeon IG % 0.6 % Critically high 0.0-0.5 [facility] Comment on above: Performed By: #### C BC #### [facility] [address] [place] [address] Dr. Temo Mckeon LYMPH # 2.2 103/ul Normal 1.2-3.8 [facility] Comment on above: Performed By: #### C BC #### [facility] [address] [place] [address] Dr. Temo Mckeon Lymphocytes/100 WBC (Bld) 22.6 % Normal 20.5-60.0 [facility] Comment on above: Performed By: #### C BC #### [facility] [address] [place] [address] Dr. Temo Mckoen MANUAL DIFF REQ NO Normal [facility] Comment on above: Performed By: #### C BC #### [facility] [address] [place] [address] Dr. Temo Mckeon MCH (RBC) [Entitic mass] 30.8 pg Normal 25.9-34.0 [facility] Comment on above: Performed By: #### C BC #### [facility] [address] [place] [address] Dr. Temo Mckeon MCHC (RBC) [Mass/Vol] 33.2 g/dL Normal 29.9-35.2 [facility] Comment on above: Performed By: #### C BC #### [facility] [address] [place] [address] Dr. Temo Mckeon MCV (RBC) [Entitic vol] 92.9 fL Normal 80.0-94.0 [facility] Comment on above: Performed By: #### C BC #### [facility] [address] [place] [address] Dr. Temo Mckeon MONO # 0.7 103/ul Normal 0.3-0.8 [facility] Comment on above: Performed By: #### C BC #### [facility] [address] [address] [address] Temo Mckeon Monocytes/100 WBC (Bld) 7.6 % Normal 1.7-12.0 [facility] Comment on above: Performed By: #### C BC #### [facility] [address] [address] [address] Temo Mckeon NEUT # 6.2 103/ul Normal 1.4-6.5 [facility] Comment on above: Performed By: #### C BC #### [facility] [address] [place] [address] Dr. Temo Mckeon Neutrophils/100 WBC (Bld) 65.4 % Normal 43.0-75.0 [facility] Comment on above: Performed By: #### C BC #### [facility] [address] [place] [address] Dr. Temo Mckeon Platelet mean volume (Bld) [Entitic vol] 10.5 fL Normal 9.5-13.5 [facility] Comment on above: Performed By: #### C BC #### [facility] [address] [place] [address] Dr. Temo Mckeon PLT 169 103/ul Normal 150-450 [facility] Comment on above: Performed By: #### C BC #### [facility] [address] [place] [address] Dr. Temo Mckeon RBC 4.35 106/ul Critically low 4.70-6.10 [facility] Comment on above: Performed By: #### C BC #### [facility] [address] [place] [address] Dr. Temo Mckeon WBC 9.5 103/ul Normal 4.0-11.0 [facility] Comment on above: Performed By: #### C BC #### [facility] [address] [place] [address] Dr. Temo Mckeon FERRITINon 10-29-2021 Ferritin [Mass/Vol] 423.0 ng/mL Critically high 26.0-388.0 [facility] Comment on above: Performed By: #### C BC #### [facility] [address] [address] [address] Temo Mckeon IRON AND TIBCon 10-29-2021 % SATURATION 25.6 % Normal [facility] Comment on above: Performed By: #### C BC #### [facility] [address] [address] [address] Temo Mckeon Iron [Mass/Vol] 79.0 ug/dL Normal 65.0-175.0 [facility] Comment on above: Performed By: #### C BC #### [facility] [address] [address] [address] Temo Mckeon TIBC DIRECT 308.0 ug/dL Normal 250.0-450.0 [facility] Comment on above: Performed By: #### C BC #### [facility] [address] [place] [address] Dr. Temo Mckeon LIPID PROFILEon 10-29-2021 CHOL-HDL RATIO NORM SEE BELOW Normal [facility] Comment on above: Result Comment: 3.3 - 4.4 LOW RISK 4.4 - 7.1 AVERAGE RISK 7.1 - 11.0 MODERATE RISK >11.0 HIGH RISK Performed By: #### B MP, ALT, LIPID #### [facility] [address] [address] [address] Temo Mckeon Cholesterol [Mass/Vol] 93 mg/dL Normal <=200 [facility] Comment on above: Performed By: #### B MP, ALT, LIPID #### [facility] [address] [address] [address] Temo Mckeon Cholesterol in HDL [Mass/Vol] 40 mg/dL Normal 40-60 [facility] Comment on above: Performed By: #### B MP, ALT, LIPID #### [facility] [address] [address] [address] Temo Mckeon Cholesterol in LDL [Mass/Vol] 35.4 mg/dL Normal [facility] Comment on above: Performed By: #### B MP, ALT, LIPID #### [facility] [address] [address] [address] Temo Mckeon Cholesterol.total/C holesterol in HDL [Mass ratio] 2.3 {ratio} Normal [facility] Comment on above: Performed By: #### B MP, ALT, LIPID #### [facility] [address] [address] [address] Temo Mckeon HDL NORMAL > or = 60 mg/dl - LO W CARDIOVASCULAR RISK <40 mg/dl - HIGH CARDIOVASCULAR RISK Normal [facility] Comment on above: Performed By: #### B MP, ALT, LIPID #### [facility] [address] [address] [address] Temo Mckeon LDL CALC NORMAL SEE BELOW Normal [facility] Comment on above: Result Comment: <100 mg/dl OPTIMAL 100 - 129 mg/dl NEAR OR ABOVE OPTIMAL 130 - 159 mg/dl BORDERLINE HIGH 160 - 189 mg/dl HIGH >190 mg/dl VERY HIGH Performed By: #### B MP, ALT, LIPID #### [facility] [address] [place] [address] Dr. Temo Mckeon Triglyceride [Mass/Vol] 88 mg/dL Normal <=150 [facility] Comment on above: Performed By: #### B MP, ALT, LIPID #### [facility] [address] [address] [address] Temo Mckeon VLDL CALC 17.6 mg/dL Normal [facility] Comment on above: Performed By: #### B MP, ALT, LIPID #### [facility] [address] [address] [address] Temo Mckeon PROF CHEM 8 (BAS METB)on Anion gap [Moles/Vol] 14.6 mmol/L Normal [facility] Comment on above: Performed By: #### B MP, ALT, LIPID #### [facility] [address] [address] [address] Temo Mckeon Calcium [Mass/Vol] 8.8 mg/dL Normal 8.5-10.1 [facility] Comment on above: Performed By: #### B MP, ALT, LIPID #### [facility] [address] [address] [address] Temo Mckeon Chloride [Moles/Vol] 106 mmol/L Normal 98-107 [facility] Comment on above: Performed By: #### B MP, ALT, LIPID #### [facility] [address] [address] [address] Temo Mckeon CO2 [Moles/Vol] 23.8 mmol/L Normal 21.0-32.0 [facility] Comment on above: Performed By: #### B MP, ALT, LIPID #### [facility] [address] [address] [address] Temo Mckeon Creatinine [Mass/Vol] 1.57 mg/dL Critically high 0.70-1.30 [facility] Comment on above: Performed By: #### B MP, ALT, LIPID #### [facility] [address] [place] [address] Dr. Temo Mckeon EGFR-AF CONGOLESE 52 mL/min/1.73m2 Critically low >=60 [facility] Comment on above: Performed By: #### B MP, ALT, LIPID #### [facility] [address] [place] [address] Dr. Temo Mckeon EGFR-NON AF CONGOLESE 43 mL/min/1.73m2 Critically low >=60 [facility] Comment on above: Performed By: #### B MP, ALT, LIPID #### [facility] [address] [place] [address] Dr. Temo Mckeon Glucose [Mass/Vol] 148 mg/dL Critically high 74-106 [facility] Comment on above: Performed By: #### B MP, ALT, LIPID #### [facility] [address] [place] [address] Dr. Temo Mckeon Potassium [Moles/Vol] 4.4 mmol/L Normal 3.5-5.1 [facility] Comment on above: Performed By: #### B MP, ALT, LIPID #### [facility] [address] [place] [address] Dr. Temo Mckeon Sodium [Moles/Vol] 140 mmol/L Normal 136-145 [facility] Comment on above: Performed By: #### B MP, ALT, LIPID #### [facility] [address] [place] [address] Dr. Temo Mckeon Urea nitrogen [Mass/Vol] 31.0 mg/dL Critically high 7.0-18.0 [facility] Comment on above: Performed By: #### B MP, ALT, LIPID #### [facility] [address] [place] [address] Dr. Temo Mckeon Urea nitrogen/Creatinine [Mass ratio] 19.7 mg/mg Normal [facility] Comment on above: Performed By: #### B MP, ALT, LIPID #### [facility] [address] [address] [address] Temo Mckeon SGPTon 10-29-2021 ALT [Catalytic activity/Vol] 39 U/L Normal 16-63 [facility] Comment on above: Performed By: #### B MP, ALT, LIPID #### [facility] [address] [place] [address] Dr. Temo Mckeon VITAMIN B12on 10-29-2021 Cobalamin (Vitamin B12) [Mass/Vol] 675.0 pg/mL Normal 193.0-986.0 [facility] Comment on above: Performed By: #### C BC #### [facility] [address] [place] [address] Dr. Temo Mckeon XR KUB 1 VIEWon [...] MARTA HALE Date: 2021-08-29 19:34 Normal [facility] CBC AUTO DIFFon 08-21-2021 BASO # 0.0 103/ul Normal 0.0-0.1 [facility] Comment on above: Performed By: #### C BC #### [facility] [address] [place] [address] Dr. Temo Mckeon Basophils/100 WBC (Bld) 0.3 % Normal 0.2-2.0 [facility] Comment on above: Performed By: #### C BC #### [facility] [address] [place] [address] Dr. Temo Mckeon EO # 0.3 103/ul Normal 0.0-0.7 [facility] Comment on above: Performed By: #### C BC #### [facility] [address] [place] [address] Dr. Temo Mckeon Eosinophils/100 WBC (Bld) 3.2 % Normal 0.9-7.0 [facility] Comment on above: Performed By: #### C BC #### [facility] [address] [place] [address] Dr. Temo Mckeon Erythrocyte distribution width (RBC) [Ratio] 13.5 % Normal 11.0-15.0 [facility] Comment on above: Performed By: #### C BC #### [facility] [address] [place] [address] Dr. Temo Mckeon Hematocrit (Bld) [Volume fraction] 38.8 % Critically low 42.0-54.0 [facility] Comment on above: Performed By: #### C BC #### [facility] [address] [place] [address] Dr. Temo Mckeon Hemoglobin (Bld) [Mass/Vol] 12.8 g/dL Critically low 14.0-18.0 [facility] Comment on above: Performed By: #### C BC #### [facility] [address] [place] [address] Dr. Temo Mckeon IG # 0.05 10e3/ul Critically high 0.00-0.03 [facility] Comment on above: Performed By: #### C BC #### [facility] [address] [place] [address] Dr. Temo Mckeon IG % 0.5 % Normal 0.0-0.5 [facility] Comment on above: Performed By: #### C BC #### [facility] [address] [place] [address] Dr. Temo Mckeon LYMPH # 1.8 103/ul Normal 1.2-3.8 [facility] Comment on above: Performed By: #### C BC #### [facility] [address] [place] [address] Dr. Temo Mckeon Lymphocytes/100 WBC (Bld) 19.6 % Critically low 20.5-60.0 [facility] Comment on above: Performed By: #### C BC #### [facility] [address] [place] [address] Dr. Temo Mckeon MANUAL DIFF REQ NO Normal [facility] Comment on above: Performed By: #### C BC #### [facility] [address] [place] [address] Dr. Temo Mckeon MCH (RBC) [Entitic mass] 31.1 pg Normal 25.9-34.0 [facility] Comment on above: Performed By: #### C BC #### [facility] [address] [place] [address] Dr. Temo Mckeon MCHC (RBC) [Mass/Vol] 33.0 g/dL Normal 29.9-35.2 [facility] Comment on above: Performed By: #### C BC #### [facility] [address] [place] [address] Dr. Temo Mckeon MCV (RBC) [Entitic vol] 94.4 fL Critically high 80.0-94.0 [facility] Comment on above: Performed By: #### C BC #### [facility] [address] [place] [address] Dr. Temo Mckeon MONO # 0.7 103/ul Normal 0.3-0.8 [facility] Comment on above: Performed By: #### C BC #### [facility] [address] [place] [address] Dr. Temo Mckeon Monocytes/100 WBC (Bld) 7.5 % Normal 1.7-12.0 [facility] Comment on above: Performed By: #### C BC #### [facility] [address] [place] [address] Dr. Temo Mckeon NEUT # 6.4 103/ul Normal 1.4-6.5 [facility] Comment on above: Performed By: #### C BC #### [facility] [address] [address] [address] Temo Mckeon Neutrophils/100 WBC (Bld) 68.9 % Normal 43.0-75.0 [facility] Comment on above: Performed By: #### C BC #### [facility] [address] [address] [address] Temo Mckeon Platelet mean volume (Bld) [Entitic vol] 10.2 fL Normal 9.5-13.5 [facility] Comment on above: Performed By: #### C BC #### [facility] [address] [place] [address] Dr. Temo Mckeon PLT 160 103/ul Normal 150-450 [facility] Comment on above: Performed By: #### C BC #### [facility] [address] [place] [address] Dr. Temo Mckeon RBC 4.11 106/ul Critically low 4.70-6.10 [facility] Comment on above: Performed By: #### C BC #### [facility] [address] [place] [address] Dr. Temo Mckeon WBC 9.3 103/ul Normal 4.0-11.0 [facility] Comment on above: Performed By: #### C BC #### [facility] [address] [place] [address] Dr. Temo Mckeon [facility] SARS-CoV-2 (COVID-19) RNA PRADEEP+probe Ql (Unsp spec) Not detected Normal NOT DETECTED [facility] Comment on above: Result Comment: This test is not yet approved or cleared by the [place] FDA. When there are no FDA-approved or cleared tests available, and other criteria are met, FDA can make tests available under an emergency access mechanism called an Emergency Use Authorization (EUA). The EUA for this test is supported by the [place] Supervisor of Health and Human Service's (HHS's) [...] SARS-CoV-2. Performed By: #### C BC #### [facility] [address] [place] [address] Dr. Temo Mckeon PROF CHEM 8 (BAS METB)on Anion gap [Moles/Vol] 12.4 mmol/L Normal [facility] Comment on above: Performed By: #### C BC #### [facility] [address] [place] [address] Dr. Temo Mckeon Calcium [Mass/Vol] 8.6 mg/dL Normal 8.5-10.1 [facility] Comment on above: Performed By: #### C BC #### [facility] [address] [place] [address] Dr. Temo Mckeon Chloride [Moles/Vol] 105 mmol/L Normal 98-107 [facility] Comment on above: Performed By: #### C BC #### [facility] [address] [place] [address] Dr. Temo Mckeon CO2 [Moles/Vol] 27.0 mmol/L Normal 22.0-30.0 [facility] Comment on above: Performed By: #### C BC #### [facility] [address] [place] [address] Dr. Temo Mckeon Creatinine [Mass/Vol] 1.57 mg/dL Critically high 0.66-1.25 [facility] Comment on above: Performed By: #### C BC #### [facility] [address] [place] [address] Dr. Temo Mckeon EGFR-AF CONGOLESE 52 mL/min/1.73m2 Critically low >=60 [facility] Comment on above: Performed By: #### C BC #### [facility] [address] [address] [address] Temo Mckeon EGFR-NON AF CONGOLESE 43 mL/min/1.73m2 Critically low >=60 [facility] Comment on above: Performed By: #### C BC #### [facility] [address] [address] [address] Temo Mckeon Glucose [Mass/Vol] 145 mg/dL Critically high 74-106 T [facility] Comment on above: Performed By: #### C BC #### [facility] [address] [address] [address] Temo Mckeon Potassium [Moles/Vol] 4.4 mmol/L Normal 3.4-5.0 [facility] Comment on above: Performed By: #### C BC #### [facility] [address] [address] [address] Temo Mckeon Sodium [Moles/Vol] 140 mmol/L Normal 137-145 [facility] Comment on above: Performed By: #### C BC #### [facility] [address] [address] [address] Temo Mckeon Urea nitrogen [Mass/Vol] 32.0 mg/dL Critically high 7.0-18.0 [facility] Comment on above: Performed By: #### C BC #### [facility] [address] [address] [address] Temo Mckeon Urea nitrogen/Creatinine [Mass ratio] 20.4 mg/mg Normal [facility] Comment on above: Performed By: #### C BC #### [facility] [address] [address] [address] Temo Mckeon PROTIMEon 08-21-2021 INR Coag (PPP) [Relative time] 1.04 {INR} Normal [facility] Comment on above: Performed By: #### C BC #### [facility] [address] [address] [address] Temo Mckeon INR GUIDELINES SEE BELOW Normal [facility] Comment on above: Result Comment: APPLE RED INR: 2.0 - 3.0 CONDITIONS NOT LISTED BELOW 2.5 - 3.5 FOR PROSTHETIC HEART VALVE REPLACEMENT 2.5 - 3.5 RECURRENT THROMBOSIS Performed By: #### C BC #### [facility] [address] [place] [address] Dr. Temo Mckeon PT Coag (PPP) [Time] 11.2 s Normal 9.0-11.6 [facility] Comment on above: Performed By: #### C BC #### [facility] [address] [place] [address] Dr. Temo Mckeon PTTon 08-21-2021 aPTT Coag (Bld) [Time] 25.2 s Normal 22.3-36.2 [facility] Comment on above: Performed By: #### C BC #### [facility] [address] [place] [address] Dr. Temo Mckeon XR KUB 1 VIEWon [...] TANISHA MATOS Date: 2021-07-29 09:21 Normal [facility]10 SARS-CoV-2 (COVID-19) RNA PRADEEP+probe Ql (Unsp spec) Not detected Normal NOT DETECTED [facility] Comment on above: Result Comment: This test is not yet approved or cleared by the [place] FDA. When there are no FDA-approved or cleared tests available, and other criteria are met, FDA can make tests available under an emergency access mechanism called an Emergency Use Authorization (EUA). The EUA for this test is supported by the [place] Supervisor of Health and Human Service's (HHS's) [...] consistent with SARS-CoV-2. Performed By: #### C [facility] #### [facility] [address] [address] [address] angio chest PE protocolon 03-07-2021 CT angio chest PE protocol [facility] [place] [address] [place] [address] CT Scan Report Signed Patient: Mason Almanzar MR#: [id number] 71 : 1945 Acct:[id number] Age/Sex: 75 / M ADM Date: 03/07/21 Loc: CT Room: Type: [facility] Attending Dr: Erika Bender MD Ordering [...] Balwinder Zambrano M.D.03/07/2021 2:01 PM Dictation Location: [place] [address] Transcribed By: [facility] 03/07/21 1401 Dictated By: Balwinder Zambrano DO 03/07/21 1359 Signed By: 03/07/21 1401 [facility] ECH echo transthoracicon E[facility] echo transthoracic [place] [address] Echocardiogram Signed Patient: Mason Almanzar MR#: [id number] 71 : 1945 Acct:[id number] Age/Sex: 75 / M ADM Date: 03/07/21 Loc: CT Room: Type: [facility] Attending Dr: Erika Bender MD Ordering Provider: Erika Bender MD Date of Service: 03/07/21 [facility] echo transthoracic: DYSPNEA Copies to: MD Genesis Shabazz [facility], BSA: 2.3 m2 BP: 174/95 mmHg HR: [...] Genesis Thomas DO 03/07/21 135 Signed By: 03/07/21 1449 [facility] ISTAT XRay CREon 03-07-2021 Creatinine [Mass/Vol] 1.5 mg/dL High 0.6-1.3 [facility] Comment on above: Result Comment: ER/E SD physician is notified/shown all ISTAT results. Critical values may be confirmed by laboratory testing if deemed necessary by ER attending doctor. Performed By: #### I SCRE #### [address] Point of Care testing , ISTAT GFR ( 55 [facility] Comment on above: Result Comment: GFR estimated reference range: According to KDOQI guidelines, <60 ml/min/1.73m2 is sufficient to diagnose a patient with chronic kidney disease. PERFORMED BY: [place] [address] PATHOLOGIST THIRD OFFICER POOJA MYERS M.D. Performed By: #### I SCRE #### [address] Point of Care testing , ISTAT GFR (Non- Am 46 [facility] Comment on above: Performed By: #### I SCRE #### [address] Point of Care testing , Vital Signs Date Time Vital Sign Value Performing Clinician Facility 06-14-2024 10:34-0500 Body height 165.1 cm Claudette Balderrama DPM Work Phone: [facility] 06-14-2024 10:34-0500 Body mass index (BMI) [Ratio] 49.92 kg/m2 Claudette Balderrama DPM Work Phone: [facility] 06-14-2024 10:34-0500 Body weight 136.08 kg Claudette Balderrama DPM Work Phone: [facility] 02-21-2024 09:11-0400 Body height 165.1 cm Claudette Balderrama DPM Work Phone: [facility] 02-21-2024 09:11-0400 Body mass index (BMI) [Ratio] 49.92 kg/m2 Claudette Balderrama DPM Work Phone: [facility] 02-21-2024 09:11-0400 Body weight 136.08 kg Claudette Balderrama DPM Work Phone: [facility] 02-01-2023 09:30-0400 Body height 162.56 cm Leo Ball Other [employer] Other 02-01-2023 09:30-0400 Body mass index (BMI) [Ratio] 49.6 kg/m2 Leo Ball Other [employer] Other 02-01-2023 09:30-0400 Body weight 131.09 kg Leo Ball Other [employer] Other 02-01-2023 09:30-0400 Diastolic blood pressure 83 mm[Hg] Leo Ball Other [employer] Other 02-01-2023 09:30-0400 Respiratory rate 20 /min Leo Ball Other [employer] Other 02-01-2023 09:30-0400 SaO2% (BldA) [Mass fraction] 97 % Leo Ball Other [employer] Other 02-01-2023 09:30-0400 Systolic blood pressure 147 mm[Hg] Leo Ball Other [employer] Other 10-30-2022 09:00-0400 Body height 162.56 cm Leo Ball Other [employer] Other 10-30-2022 09:00-0400 Body mass index (BMI) [Ratio] 50.67 kg/m2 Leo Ball Other [employer] Other 10-30-2022 09:00-0400 Body weight 133.9 kg Leo Ball Other [employer] Other 10-30-2022 09:00-0400 Diastolic blood pressure 68 mm[Hg] Leo Ball Other [employer] Other 10-30-2022 09:00-0400 Respiratory rate 20 /min Leo Ball Other [employer] Other 10-30-2022 09:00-0400 SaO2% (BldA) [Mass fraction] 98 % Leo Ball Other [employer] Other 10-30-2022 09:00-0400 Systolic blood pressure 121 mm[Hg] Leo Ball Other [employer] Other 08-24-2022 10:32-0400 Blood Pressure Location Dominique ESTRELLA [facility] 08-24-2022 10:32-0400 Diastolic blood pressure 73 mm[Hg] Dominique ESTRELLA [facility] 08-24-2022 10:32-0400 Heart rate 59 /min Dominique ESTRELLA [facility] 08-24-2022 10:32-0400 Respiratory rate 16 /min Dominique ESTRELLA [facility] 08-24-2022 10:32-0400 Systolic blood pressure 125 mm[Hg] Dominique ESTRELLA [facility] 06-30-2022 09:00-0500 Body height 162.56 cm Leo Ball Other [employer] [facility] Other 06-30-2022 09:00-0500 Body mass index (BMI) [Ratio] 51.52 kg/m2 Leo Ball Other [employer] Other 06-30-2022 09:00-0500 Body weight 136.17 kg Leo Ball Other [employer] Other 06-30-2022 09:00-0500 Diastolic blood pressure 84 mm[Hg] Leo Ball Other [employer] Other 06-30-2022 09:00-0500 Respiratory rate 20 /min Leo Ball Other [employer] Other 06-30-2022 09:00-0500 Systolic blood pressure 128 mm[Hg] Leo Ball Other [employer] Other 02-23-2022 11:07-0400 Blood Pressure Location Dominique ESTRELLA [facility] 02-23-2022 11:07-0400 Diastolic blood pressure 74 mm[Hg] Dominique ESTRELLA [facility] 02-23-2022 11:07-0400 Heart rate 76 /min Dominique ESTRELLA [facility] 02-23-2022 11:07-0400 Respiratory rate 16 /min Dominique ESTRELLA [facility] 02-23-2022 11:07-0400 Systolic blood pressure 128 mm[Hg] Dominique ESTRELLA [facility] 08-04-2021 08:51-0400 Blood Pressure Location Dominique ESTRELLA [facility] 08-04-2021 08:51-0400 Diastolic blood pressure 72 mm[Hg] Dominique ESTRELLA [facility] 08-04-2021 08:51-0400 Heart rate 63 /min Dominique ESTRELLA [facility] 08-04-2021 08:51-0400 Respiratory rate 16 /min Dominique ESTRELLA [facility] 08-04-2021 08:51-0400 Systolic blood pressure 121 mm[Hg] Dominique ESTRELLA [facility] 04-01-2021 12:45-0500 Body height 162.56 cm Erika Bender Other [employer] Other 04-01-2021 12:45-0500 Body mass index (BMI) [Ratio] 51.15 kg/m2 Erika Bender Other [employer] Other 04-01-2021 12:45-0500 Body temperature 97.6 [degF] Kamal Chaban Other [employer] Other 04-01-2021 12:45-0500 Body weight 135.17 kg Kamal Chaban Other [employer] Other 04-01-2021 12:45-0500 Diastolic blood pressure 68 mm[Hg] Fitoal Chaban Other [employer] Other 04-01-2021 12:45-0500 Respiratory rate 20 /min Fitoal Chaban Other [employer] Other 04-01-2021 12:45-0500 SaO2% (BldA) [Mass fraction] 97 % Fitoal Chaban Other [employer] Other 04-01-2021 12:45-0500 Systolic blood pressure 140 mm[Hg] Fitoal Chaban Other [employer] Other 03-04-2021 16:15-0400 Body height 162.56 cm Fitoal Chaban Other [employer] Other 03-04-2021 16:15-0400 Body mass index (BMI) [Ratio] 51.15 kg/m2 Fitoal Chaban Other [employer] Other 03-04-2021 16:15-0400 Body temperature 98.3 [degF] Kamal Chaban Other [employer] Other 03-04-2021 16:15-0400 Body weight 135.17 kg Kamal Chaban Other [employer] Other 03-04-2021 16:15-0400 Diastolic blood pressure 68 mm[Hg] Erika Bender Other [employer] Other 03-04-2021 16:15-0400 Respiratory rate 20 /min Erika Bender Other [employer] Other 03-04-2021 16:15-0400 SaO2% (BldA) [Mass fraction] 97 % Erika Bender Other [employer] Other 03-04-2021 16:15-0400 Systolic blood pressure 148 mm[Hg] Erika Bender Other [employer] Other Encounters Encounter Date Encounter Type Care Provider Facility Start: 08-11-2024 ambulatory ERWIN Ball ty:[facility] Start: 06-14-2024 End: 06-14-2024 Bamboo flowsheet Claudette Balderrama DPM Work Phone: [facility] Start: 06-14-2024 End: 06-14-2024 Bamboo flowsheet Claudette Balderrama DPM Work Phone: [facility] Start: 06-14-2024 End: 06-14-2024 ambulatory CLAUDETTE BALDERRAMA Not Available Start: 06-14-2024 End: 06-14-2024 Patient encounter procedure Claudette Balderrama DPM Work Phone: [facility] Comment on above: Dermatophytosis of n ail (Primary Dx); Dystrophic nail; Pain around toenail, right foot; Pain around toenail, left foot Start: 02-21-2024 End: 02-21-2024 Bamboo flowsheet Claudette Balderrama DPM Work Phone: [facility] Start: 02-21-2024 End: 02-21-2024 Bamboo flowsheet Claudette Balderrama DPM Work Phone: [facility] Start: 02-21-2024 End: 02-21-2024 Patient encounter procedure Claudette Balderrama DPM Work Phone: [facility] Comment on above: Dermatophytosis of n ail (Primary Dx); Dystrophic nail; Pain around toenail, right foot; Pain around toenail, left foot Start: 02-21-2024 End: 02-21-2024 ambulatory CLAUDETTE BALDERRAMA Not Available Start: 01-31-2024 End: 01-31-2024 ambulatory AB [facility] Start: 01-04-2024 End: 01-04-2024 Bamboo flowsheet Rui Jimenez DO Work Phone: [facility] Start: 01-04-2024 End: 01-04-2024 Bamboo flowsheet Rui Burthler DO Work Phone: [facility] Start: 01-04-2024 End: 01-04-2024 ambulatory RUI JIMENEZ Not Available Start: 12-29-2023 End: 12-29-2023 Bamboo flowsheet Rui Burthler DO Work Phone: [facility] Start: 12-29-2023 End: 12-29-2023 Bamboo flowsheet Rui Sandoval Zahler DO Work Phone: [facility] Start: 12-29-2023 End: 12-29-2023 ambulatory RUI JIMENEZ Not Available Start: 11-30-2023 End: 11-30-2023 ambulatory ILENE GONZALEZ Not Available Start: 10-06-2023 End: 10-06-2023 ambulatory CLAUDETTE BALDERRAMA Not Available Start: 09-13-2023 End: 09-14-2023 ambulatory Mary Ann Villalobos MD Facility: [facility] Start: 09-06-2023 End: 09-07-2023 ambulatory Mary Ann Villalobos MD Facility: [facility] Start: 08-31-2023 End: 08-31-2023 ambulatory Orquidea X Orzech Facility: [facility] Start: 08-31-2023 End: 08-31-2023 Patient encounter procedure Orquidea X Juwanzech [facility] Start: 07-05-2023 End: 07-06-2023 ambulatory Mary Ann Villalobos MD Facility: [place] Start: 06-21-2023 End: 06-22-2023 ambulatory Mary Ann Villalobos MD Facility: [facility] Start: 03-08-2023 End: 03-09-2023 ambulatory Mary Ann Villalobos MD Facility: [facility] Start: 02-08-2023 End: 02-09-2023 ambulatory Mary Ann Villalobos MD Facility: [place] Start: 02-01-2023 End: 02-01-2023 ambulatory Leo Garcias Other [employer] Other Start: 02-01-2023 Office outpatient vi sit 25 minutes Leo Garcias [facility] Start: 01-13-2023 End: 01-13-2023 ambulatory Leo Garcias Other [employer] Other Start: 01-13-2023 Telephone encounter Leo CHILDRESS G [facility] Start: 11-09-2022 End: 11-09-2022 ambulatory Leo Garcias Other [employer] Other Start: 11-09-2022 Telephone encounter Leo CHILDRESS G [facility] Start: 10-30-2022 End: 10-30-2022 ambulatory Leo Garcias Other [employer] Other Start: 10-30-2022 Patient encounter procedure Leo Garcias [facility] Start: 08-24-2022 End: 08-24-2022 Patient encounter procedure Dominique ESTRELLA [facility] Start: 07-08-2022 End: 07-08-2022 ambulatory Leo Garcias Other [employer] Other Start: 07-08-2022 Telephone encounter Leo Garcias [facility] Start: 06-30-2022 End: 06-30-2022 ambulatory Leo Jamaica Other [employer] Other Start: 06-30-2022 Office outpatient vi sit 25 minutes Leo Garcias [facility] Start: 02-23-2022 End: 02-23-2022 Patient encounter procedure Dominique ESTRELLA [facility] Start: 02-17-2022 End: 02-18-[address] LEO GARCIAS Facility:[facility] Start: 10-29-2021 End: 10-30-[address] LEO GARCIAS Facility:[facility] Start: 10-22-2021 Adult health examination Louis Garcias Other [employer] Other Start: 08-28-2021 End: 08-28-[address] DOMINIQUE ESTRELLA Facility:[facility] Start: 08-25-2021 Encounter for preprocedural cardiovascular examination DR DOMINIQUE ESTRELLA [facility] Start: 08-25-2021 Encounter for preprocedural laboratory examination DR DOMINIQUE ESTRELLA [facility] Start: 08-25-[address] DOMINIQUE ESTRELLA [facility] ity:[facility] Start: 08-21-2021 End: 08-22-[address] DOMINIQUE ESTRELLA Facility:[facility] Start: 08-21-2021 End: 08-22-2021 Encounter for preprocedural cardiovascular examination DR DOMINIQUE ESTRELLA Facility:[facility] Start: 08-04-2021 End: 08-04-2021 Patient encounter procedure Dominique ESTRELLA [facility] Start: 07-29-2021 End: 07-30-[address] DOMINIQUE ESTRELLA Facility:[facility] Start: 05-05-2021 End: 05-05-[address] LEO GARCIAS Facility:[facility] Start: 04-01-2021 End: 04-01-2021 ambulatory Kamal Chaban Other [employer] Other Start: 04-01-2021 Office outpatient vi sit 15 minutes Kamal Chaban [facility] Start: 03-04-2021 Office outpatient ne w 45 minutes Kamal Chaban [facility] Start: 08-28-2019 Preoperative cardiovascular examination Leo Garcias Other [employer] Other Start: 07-06-2018 End: 07-07-2018 Patient encounter procedure DEFAULT PHYSICIAN Facility:[facility] Start: 07-04-2018 End: 07-05-2018 Patient encounter procedure DEFAULT PHYSICIAN Facility:[facility] Start: 07-01-2018 End: 07-02-2018 Patient encounter procedure DEFAULT PHYSICIAN Facility:[facility] Procedures Date Procedure Procedure Detail Performing Clinician Start: 01-04-2024 End: 01-04-2024 [facility] 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 Temo Mckeon Start: 08-28-2021 Extracorporeal shock wave lithotripsy of calculus of kidney Dominique ESTRELLA Start: 01-26-2019 Cystoscopy Dominique ZIEGLER Start: 01-05-2019 Cystoscopy Dominique ZIEGLER Start: 12-16-2018 Preoperative cardiovascular examination Leo [...] 11/30/2024 10:25 AM EDT Office Visit [facility] [address] [place] [phone] Ilene Gonzalez, G[employer] INSURANCE SPECIALIST [address] [place] [address] [facility] Start: 09-25-2024 End: 09-25-2024 Patient encounter procedure 09/25/2024 9:45 AM EDT Procedure Visit [facility] [address] [place] [phone] Claudette Balderrama DPM [address] [place] [address] [facility] Start: 06-14-2024 End: 06-14-2024 Patient encounter procedure 06/14/2024 10:15 AM EST [facility] [address] [place] [phone] Claudette Balderrama DPM [address] [place] [address] [facility] Start: 02-21-2024 End: 02-21-2024 Patient encounter procedure 02/21/2024 9:15 AM EDT Procedure Visit [facility] [address] [place] [phone] Claudette Balderrama, DP [address] [place] [address] Arrived [facility] Comment on above: Arrived Start: 01-11-2024 End: 01-11-2024 Patient encounter procedure 01/11/2024 9:30 AM EDT Procedure Visit [facility] [address] [place] [phone] Claudette Balderrama, KIAH [address] [place] [address] [facility] Start: 01-09-2024 Influenza vaccination Influenza Vacc ine (#1) [facility] Start: 01-04-2024 End: 01-04-2024 Patient encounter procedure 01/04/2024 11:00 AM EDT Office Visit [facility] [address] [place] [phone] Rui Jimenez, DO [address] [place] [address] Arrived [facility] Comment on above: Arrived Start: 12-29-2023 End: 12-29-2023 Patient encounter procedure 12/29/2023 11:30 AM EDT Office Visit [facility] [address] [place] [address] Rui Jimenez, DO [address] [place] [address] Arrived [facility] Comment on above: Arrived Immunizations Immunization Date Immunization Notes Care Provider Fa cili 02-09-2024 influenza, high dose seasonal, preservative-free Claudette Conchis DPM Work Phone: [facility] 02-09-2024 influenza virus vaccine, unspecified formulation Claudette Conchis DPM Work Phone: [facility] 02-01-2023 influenza virus vaccine, unspecified formulation Rui Zahler DO Work Phone: [facility] 02-01-2023 influenza, high dose seasonal, preservative-free Leo Garcias Other [employer] Other 03-23-2022 COVID-19 Pfizer (bivalent) Leo Garcias Other [employer] Other 02-24-2022 influenza virus vaccine, split virus (incl. purified surface antigen) Leo Garcias Other [employer] Other 02-24-2022 influenza virus vaccine, unspecified formulation Rui Zahler DO Work Phone: [facility] 02-24-2022 influenza, injectabl e, quadrivalent, preservative free Rui Zahler DO Work Phone: [facility] 02-24-2022 Influenza, Seasonal, Quadrivalent, Adjuvanted Rui Zahler DO Work Phone: [facility] 02-24-2022 influenza, high dose seasonal, preservative-free Leo Garcias Other [employer] Other 03-26-2021 SARS-CoV-2 (COVID-19 ) mRNA BNT-162b2 vax Dominique ESTRELLA [facility] Comment on above: Result Comment: 2021: [id number] 02-21-2021 influenza virus vaccine, split virus (incl. purified surface antigen) Leo Garcias Other [employer] [facility] Other 02-21-2021 influenza virus vaccine, unspecified formulation Claudette DUPONTM Work Phone: [facility] 02-07-2021 influenza virus vaccine, unspecified formulation Dominique ESTRELLA [facility] 07-30-2020 COVID-19 Vaccine Pfi zer - Documentation Purposes Only Erika Bender Other [facility] 07-08-2020 COVID-19 Vaccine Pfi zer - Documentation Purposes Only Erika Bender Other [facility] 05-10-2020 SARS-CoV-2 (COVID-19 ) mRNA BNT-162b2 vax Dominiquerafael ESTRELLA [facility] Comment on above: Result Comment: pt h as had 3 shots to date 02-29-2020 influenza virus vaccine, split virus (incl. purified surface antigen) Leo Garcias Other [facility] [employer] Other 02-29-2020 influenza virus vaccine, unspecified formulation Claudette DUPONTM Work Phone: [facility] 02-16-2019 influenza virus vaccine, split virus (incl. purified surface antigen) Leo Garcias Other [employer] [facility] Other 02-16-2019 influenza virus vaccine, unspecified formulation Claudette DUPONTM Work Phone: [facility] 01-24-2018 influenza virus vaccine, split virus (incl. purified surface antigen) Leo Garcias Other [employer] Other 01-24-2018 influenza virus vaccine, unspecified formulation Dominique ESTRELLA [facility] 01-24-2018 pneumococcal Conjuga te, unspecified formulation; Translations: [Need for prophylactic vaccination against Streptococcus pneumoniae (pneumococcus)] Leo Garcias Other [employer] Other 01-24-2018 pneumococcal polysaccharide vaccine, 23 valent Dominique ESTRELLA [facility] 01-24-2018 Seasonal trivalent influenza vaccine, adjuvanted, preservative free Rui Zahler DO Work Phone: [facility] [id number] 02-18-2017 influenza virus vaccine, split virus (incl. purified surface antigen) Leo Garcias Other [employer] Other 02-18-2017 influenza virus vaccine, unspecified formulation Dominique ESTRELLA [facility] 02-18-2017 influenza, high dose seasonal, preservative-free Rui Zahler DO Work Phone: [facility] 02-12-2016 influenza virus vaccine, split virus (incl. purified surface antigen) Leo Garcias Other [employer] Other 02-12-2016 influenza virus vaccine, unspecified formulation Dominique ESTRELLA [facility] 02-12-2016 influenza, high dose seasonal, preservative-free Rui Zahler DO Work Phone: [facility] [id number] 02-28-2015 tetanus and diphther ia toxoids, adsorbed, preservative free, for adult use (5 Lf of tetanus toxoid and 2 Lf of diphtheria toxoid) Leo Garcias Other [employer] Other 02-28-2015 pneumococcal conjuga te vaccine, 13 valent Leo Garcias Other [employer] Other 02-16-2014 tetanus and diphther ia toxoids, adsorbed, preservative free, for adult use (5 Lf of tetanus toxoid and 2 Lf of diphtheria toxoid) Leo Garcias Other [employer] Other 02-08-2013 tetanus and diphther ia toxoids, adsorbed, preservative free, for adult use (5 Lf of tetanus toxoid and 2 Lf of diphtheria toxoid) Leo Garcias Other [employer] Other 02-17-2012 tetanus and diphther ia toxoids, adsorbed, preservative free, for adult use (5 Lf of tetanus toxoid and 2 Lf of diphtheria toxoid) Leo Garcias Other [employer] Other 02-13-2009 pneumococcal polysaccharide vaccine, 23 valent Leo Garcias Other [employer] Other 10-17-2003 Td(adult) unspecifie d formulation Dominique ESTRELLA [facility] 10-17-2003 tetanus and diphther ia toxoids, not adsorbed, for adult use Rui Jimenez DO Work Phone: [facility] Payers Date Payer Category Payer Private Health Insurance 2018 Medicare 1958 Medicare [id number] 2.1 [id number] 1959 Private Health Insurance [id number] 1946 Unknown [id number] 2.16.8 40.1.850137.3.579.2.647 1946 Unknown [id number] 2.16.8 40.1.737438.3.579.2.647 1946 Unknown [id number] 2.16.8 40.1.325132.3.579.2.647 1946 Unknown [id number] 2.16.84 0.1.926968.3.579.2.593 1946 Unknown [id number] 2.16.84 0.1.533589.3.579.2.593 1946 Unknown [id number] 2.16.84 0.1.741999.3.579.2.593 1946 Unknown [id number] 2.16.84 0.1.798772.3.579.2.593 1946 Unknown [id number] 2.16.84 0.1.492593.3.579.2.593 1946 Unknown [id number] 2.16.84 0.1.835079.3.579.2.593 1946 Unknown [id number] 2.16.84 0.1.940363.3.579.2.593 1946 Unknown [id number] 2.16.84 0.1.382482.3.579.2.593 1946 Unknown [id number] 2.16. 840.1.335324.3.579.2.196 1946 Unknown [id number] 2.16. 840.1.582451.3.579.2.196 1946 Unknown [id number] 2.16. 840.1.661150.3.579.2.196 1946 Unknown [id number] 2.16. 840.1.037938.3.579.2.196 1946 Unknown [id number] 2.16. 840.1.005034.3.579.2.196 1946 Unknown [id number] 2.16. 840.1.252282.3.579.2.196 1946 Unknown [id number] 2.16.8 40.1.141672.3.579.2.727 1946 Unknown [id number] 2.16.8 40.1.119050.3.579.2.727 1946 Unknown [id number] 2.16.84 0.1.359494.3.579.2.1259 1946 Unknown [id number] 2.16.84 0.1.074622.3.579.2.1259 1946 Unknown [id number] 2.16.84 0.1.773839.3.579.2.1259 1946 Unknown [id number] 2.16.84 0.1.453045.3.579.2.1259 1946 Unknown [id number] 2.16.84 0.1.210561.3.579.2.9 1946 Unknown [id number] 2.16.84 0.1.666337.3.579.2.1259 Unknown Social History Date Type Detail Facility Start: 01-30-2021 End: 10-19-2022 Tobacco smoking status Never smoked tobacco (finding) [employer] Other Start: 01-04-2024 End: 02-21-2024 Sex Assigned At Male [facility] Other Tobacco smoking status Never [facility] Start: 10-19-2022 Tobacco use and exposure Smokeless tobacco non-user [facility] Start: 01-04-2024 End: 06-14-2024 Alcoholic beverage intake Current drinker of alcohol (finding) [facility] Start: 01-04-2024 End: 02-21-2024 History of Social function [facility] Start: 10-09-2022 Alcohol Comment 1-2 drinks/mon thly or less [facility] Start: 1945 Sex assigned at Not on file [facility] Functional Status Date Assessment Result Facility 08-31-2023 Functional Status N/A [facility] 08-24-2022 Functional Status N/A [facility] 02-23-2022 Functional Status N/A [facility] Clinical Notes 12-09-2020 to 06-14-2024 Claudette Balderrama, DPM - 06/14/2024 10:15 AM ESTPatient InstructionsStruth Balderrama, DPM - 02/21/2024 9:15 AM EDTPatient InstructionsNessalena Sandoval Barbara, DO - 01/04/2024 11:00 AM EDT Note Date & Type Note Facility 06-14-2024 History of Present illness Narrative Images from the original note were not included. Subjective Patient ID: Ralph Almanzar is a 78 y.o. male who presents for Nail care (Ralph Almanzar is a 78 y.o. male who presents for Toenail Care (SS: 11).). HPI HPI Onychomycosis/Toenail Fungus: pt presents today [...] and related complications. Aggravated by: shoe gear pressure, walking; catching and snagging on clothing etc.. [...] route every day Oral, Disp: , Rfl: EXTRA STRENGTH ACETAMINOPHEN PO, Extra Strength Acetaminophen (Patient not taking: Reported on 02/21/2024), Disp: , Rfl: finasteride (Proscar) 5 MG tablet, Take 5 mg by mouth in the morning. Do not crush, chew, or split. ., Disp: , Rfl: furosemide (Lasix) 20 MG tablet, furosemide 20 mg tablet TAKE 1 TABLET BY MOUTH EVERY DAY, Disp: , Rfl: ganciclovir (Zirgan) 0.15 % ophthalmic gel solution, Apply 1 drop to left eye 5 (five) times a day (Patient not taking: Reported on 02/21/2024), Disp: 3.5 g, Rfl: 1 HYDROcodone-acetaminophen ([place]) 7.5-325 MG tablet, TAKE 1 TABLET BY MOUTH THREE TIMES A DAY NEEDED FOR PAIN, Disp: , Rfl: isosorbide mononitrate ER (Imdur) 60 MG 24 hr tablet, , Disp: , Rfl: LATANOPROST OP, Latanoprost (Patient not taking: Reported on 02/21/2024), Disp: , Rfl: metoprolol succinate XL (Toprol-XL) 50 MG 24 hr tablet, take 1 tablet (50MG) by ORAL route every day Oral, Disp: , Rfl: moxifloxacin (Vigamox) 0.5 % ophthalmic solution, Administer 1 drop into the left eye in the morning and 1 drop at noon and 1 drop in the evening and 1 drop before bedtime. 1 drop four times a day to the right eye starting 3 days prior to surgery. (Patient not taking: Reported on 02/21/2024), Disp: 3 mL, Rfl: 1 oxybutynin XL (Ditropan-XL) 15 MG 24 hr tablet, Take 15 mg by mouth in the morning. Do not crush, chew, or split.., Disp: , Rfl: Pediatric Multivitamins-Fl (MultiVitamin + Fluoride) 0.25 MG chewable tablet, Multivitamin (Patient not taking: Reported on 02/21/2024), Disp: , Rfl: prednisoLONE acetate (Pred-Forte) 1 % ophthalmic suspension, 1 drop, left eye (OS), 3xs/day for 1wk, 2xs/day for 1wk, then daily for 1wk, then stop. (Patient not taking: Reported on 02/21/2024), Disp: 5 mL, Rfl: 0 tamsulosin (Flomax) 0.4 MG 24 hr capsule, 1 capsule 1 (one) time each day at the same time., Disp: , Rfl: tolterodine LA (Detrol LA) 4 MG 24 [...] and oriented. Pleasant disposition. Wearing slip on pecan picker shoes with Powerstep orthoses. His spouse, Sharon [...] Claudette Balderrama DPM documented in this encounter [facility] 06-14-2024 Instructions Claudette Balderrama DPM - 06/14/2024 10:15 AM EST As noted documented in this encounter [facility] 02-21-2024 History of Present illness Narrative Images from the original note were not included. Subjective Patient ID: Ralph Almnazar is a 78 y.o. male who presents [...] MOUTH EVERY DAY, Disp: , Rfl: HYDROcodone-acetaminophen ([place]) 7.5-325 MG tablet, TAKE 1 TABLET BY [...] and oriented. Pleasant disposition. Wearing slip on pecan picker shoes with Powerstep orthoses. His spouse, Sharon [...] Claudette Balderrama DPM documented in this encounter [facility] 02-21-2024 Instructions Claudette Balderrmaa DPM - 02/21/2024 9:15 AM EDT As noted documented in this encounter [facility] 01-31-[address] [facility] Cardiology Clinic Note Chief Complaint: Patient here [...] problems arise Shalonda Rai MD, MPH, FACC, [facility] Interventional Cardiology Pager Email: [email or web address] 01-04-2024 History of Present illness Narrative Images from the original note were not included. Assessment/Plan Diagnoses and all orders for this visit: HSV epithelial keratitis - Defect healed. Cont Acyclovir 400mg BID and Zirgan left eye (OS) TID, both until out. Stop Moxifloxacin. Start Pred Acetate left eye (OS) TID with 3 wk taper. documented in this encounter [facility] 12-29-2023 History of Present illness Narrative Images [...] eye (OS) QID. documented in this encounter [facility] 08-31-2023 Hospital Discharge instructions Patient Education [...] urethra. Follow these instructions at home: Take etjk-flc-pwvqozf and prescription medicines only as told by [...] provider. Document Revised: 11/12/2021 Document Reviewed: 11/12/2021 Interfolio Patient Education 2022 [email or web address] 08/31/2023 09:07:49 Urinary Incontinence Urinary Incontinence Urinary [...] (electrical nerve stimulation). ?For women, using a emergency medical technician/driver to prevent urine leaks. This is a [...] right after experiencing incontinence. General instructions Take znxr-syu-tozuecb and prescription medicines only as told by [...] important. Where to find more information National [place] of Diabetes and Digestive and Kidney Diseases: www.niddk.nih.gov [employer] [employer]: www.urologyhealth.org Contact a health care [...] provider. Document Revised: 11/29/2020 Document Reviewed: 11/29/2020 Interfolio Patient Education 2022 Elsevier Inc. Follow Up Care 08/24/2022 11:22:07 With:ISAAC Huston APRN, CHASE Colbert, URL Address: When: Unknown Comments:1 year with AKBAR With:SAMEER MONTIEL, Dominique Sequeira, URL Address: [facility] [address] [place] [address] [phone] When: Unknown [facility] [place] 02-01-2023 Evaluation note Encounter Date Diagnosis Assessment [...] use, the patient reduces the risk for ND, CVA, HTN, cardiac dysrhythmias and sudden cardiac [...] in remission (ICD-10 - F17.211) Continue abstinence [employer] Other 09-06-2023 Evaluation note* Encounter Date Diagnosis Assessment Notes Treatment Notes Treatment Clinical Notes Jan, Lumbosacral spondylosis with radiculopathy (ICD-10 - 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 Follow these instructions at home: Take zcas-sbi-zoxqnwd and prescription medicines only as told by [...] 04/26/2006 Document Revised: 03/21/2019 Document Reviewed: 05/31/2017 Interfolio Patient Education 2020 [email or web address]. 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 Follow Up Care 08/28/2021 11:53:17 With:SAMEER MONTIEL, Dominique Sequeira, URL Address: [facility] [address] , [place] [address]- [phone] When:08/24/2022 [facility] 03-28-2022 Hospital Discharge instructions Patient Education 08/04/2021 [...] Follow these instructions at home: Medicines Take asbx-vcg-dyzgvkv and prescription medicines only as told by [...] 05/15/2008 Document Revised: 08/07/2019 Document Reviewed: 03/17/2017 Interfolio Patient Education 2020 [email or web address] 08/04/2021 09:25:02 Calorie Counting for Weight Loss [...] 04/26/2006 Document Revised: 01/13/2019 Document Reviewed: 03/26/2017 Interfolio Patient Education 2020 [email or web address] 08/04/2021 09:24:51 Benign Prostatic Hyperplasia Benign Prostatic [...] urethra. Follow these instructions at home: Take bufp-vup-gcmykzo and prescription medicines only as told by [...] 04/26/2006 Document Revised: 03/21/2019 Document Reviewed: 05/31/2017 Interfolio Patient Education 2020 [email or web address]. Follow Up Care 01/30/2021 10:09:00 With:SAMEER MONTIEL, LEXUS Carson Address: [facility] [address] , [place] [address] [phone] When: Unknown Comments:Will schedule RT ESWLF/u in 3-4 month due to new medication [facility] [place] 11-23-2021 Evaluation note* Encounter Date Diagnosis Assessment Notes Treatment Notes Treatment Clinical Notes Mar, Dyspnea on exertion (ICD-10 - R06.00) Mar, Leg edema (ICD-10 - R60.0) [employer] Other 10-26-2021 Evaluation note* Encounter Date Diagnosis Assessment Notes Treatment Notes Treatment Clinical Notes Feb, Dyspnea on exertion (ICD-10 - R06.00) Feb, Leg edema (ICD-10 - R60.0) [employer] Other 08-02-2021 NoteHNO ID: [id number] Author: Amara Esqueda MD Service: ? Author [...] its relevant components. Amara Esqueda MD [facility] Future Appointments Appointment Date:11/07/2021 09:30:00 AM Scheduled Provider:Dominique ESTRELLA MD Location:[facility] Appointment Type:URO Office Visit [facility] evaluation + Plan note Future Appointments Appointment Date:08/24/2022 10:30:00 AM Scheduled Provider:Dominique ESTRELLA MD Location:[facility] Appointment Type:URO Office Visit [facility] evaluation + Plan note Future Appointments Appointment Date:03/01/2023 09:15:00 AM Scheduled Provider:Dominique ESTRELLA MD Location:[facility] Appointment Type:URO Office Visit [facility] evaluation noteNo InformationNortExcela [facility] Other Evaluation note* Diagnosis Dermatophytosis of nail- Primary Dystrophic nail Other specified disease of nail Pain around toenail, right foot Pain around toenail, left foot documented in this encounter [facility] HealthcareEvaluation note* Diagnosis HSV epithelial keratitis- Primary documented in this encounter [facility] HealthcareEvaluation note* Diagnosis HSV epithelial keratitis- Primary documented in this encounter [facility] HealthcareHistory general Narrative - Reported* Type Description Date Medical History ADITHYA Medical History hypertension Medical History heart disease Surgical History bypass triple Surgical History 2 knee replacements Surgical History hiatal hernia Surgical History cataract x 2 Hospitalization History as above [employer] Other History general Narrative - Reported* Type [...] OF KIDNEY STONE Hospitalization History as above [employer] Other Hospital course Narrative No data available for this section [facility] progress note No data available for this section [facility] Summary Purpose Family History No Family History [...] 1 Lumbar spondylosis ( M47.816) Referral Organization [facility] caren Referring Provider First Name Leo Referring Provider Last Name [place] Referring Provider Specialty Internal Me dicine Referred Organization [facility] Referred Provider Samantha Contreras Referred Address [address] [place], [place],[address] Referred Provider Specialty Pain Medicin e Referral [...] section and content) DATE CREATED AUTHOR 07/07/2018 [facility] DATE CREATED AUTHOR AUTHOR'S ORGANIZ ATLINDSEY 12/09/2020 [facility] DATE CREATED AUTHOR AUTHOR'S ORGANIZ ATION 03/10/2021 [facility] DATE CREATED AUTHOR AUTHOR'S ORGANIZ ATION 03/01/2022 [facility] DATE CREATED AUTHOR AUTHOR'S ORGANIZ ATION 09/23/2023 [facility] DATE CREATED AUTHOR AUTHOR'S ORGANIZ ATION 02/01/2024 [facility] DATE CREATED AUTHOR AUTHOR'S ORGANIZ ATION 06/15/2024 [facility] DATE CREATED AUTHOR AUTHOR'S ORGANIZ ATION 06/16/2024 [facility] dical Specialists EPIC REASON FOR VISIT (unrecogniz ed section and content) Reason Comments Toenail Care SS: 11 Reason Comments Eye Problem Conjunctivitis Reason Comments Follow-up Reason Comments Nail care Ralph Almanzar is a [age] y.o. male who presents for Toenail Care (SS: 11). Patient Care team informatio n (unrecognized section and content) Automation Clerk Relationship Specialty Start Date End Date Leo Garcias MD [address] [place] [address] PCP - General Internal Medicine 10/08/22 Automation Clerk Relationship Specialty Start Date End Date Leo Garcias MD [address] [place] [address] PCP - General Internal Medicine 10/08/22 Automation Clerk Relationship Specialty Start Date End Date Leo Garcias MD [address] [place] [address] PCP - General Internal Medicine 10/08/22 Automation Clerk Relationship Specialty Start Date End Date Leo Garcias MD [address] [place] [address] PCP - General Internal Medicine 10/08/22 Automation Clerk Relationship Specialty Start Date End Date Leo Garcias MD [address] [place] [facility] [address] PCP - General Internal Medicine 10/08/22 Automation Clerk Relationship Specialty Start Date End Date Leo Garcias MD [address] [place] [address] PCP - General Internal Medicine 10/08/22 Automation Clerk Relationship Specialty Start Date End Date Leo Garcias MD [address] [place] [address] PCP - General Internal Medicine [...] BE BASED ON THE PRIMARY CLINICAL RECORDS. [facility]. provides no warranty or guarantee of the accuracy or completeness of information in this document.
--- NOTE | 2024-07-02 10:46 | ED_ITS ---
HPI HPI - Back Pain/Injury General Chief Complaint: Back Pain/Injury Stated Complaint: FELL ON 06/29/24; L SIDE RIB & BACK PAIN Time Seen by Provider: 07/02/24 10:27 Source: patient Mode of arrival: Wheelchair Limitations: no limitations History of Present Illness HPI Narrative: cc = left posterior rib pain 3 days ago, while at cardiac rehab, the patient lost his footing while leaning up against an exercise bike and fell, striking the posterolateral aspect of the left mid rib cage just below the scapular tip. He is on Plavix every day, he subsequently developed a hematoma in that area. He said that overall he had been doing well and not taking any medication for the pain, rating it a 1-2 out of 10 over the last few days since the accident until late last night. At that time, he said that as he was going up the stairs he felt a sudden catch and sharp spasm of pain in this area. It continued throughout the night and finally earlier this morning he took some Tylenol. He now presents with pain rated 5-6 out of 10 at rest. He is not short of breath but it hurts to breathe. Pain is focally located at the area of injury on the left posterolateral aspect of the rib cage. Related Data Home Medications ?Medication ?Instructions ?Recorded ?Confirmed amlodipine 10 mg-benazepril 20 mg 1 cap PO DAILY 02/08/23 09/06/23 capsule aspirin 81 mg tablet,delayed 81 mg PO DAILY 02/08/23 09/06/23 release (Adult Aspirin Regimen) atorvastatin 80 mg tablet 80 mg PO DAILY 02/08/23 09/06/23 citalopram 20 mg tablet 20 mg PO DAILY 02/08/23 09/06/23 clopidogrel 75 mg tablet 75 mg PO DAILY 02/08/23 09/06/23 finasteride 5 mg tablet 5 mg PO DAILY 02/08/23 08/24/23 furosemide 20 mg tablet 20 mg PO DAILY 02/08/23 08/24/23 isosorbide mononitrate 60 mg 60 mg PO DAILY 02/08/23 08/24/23 tablet,extended release 24 hr metoprolol succinate 50 mg 50 mg PO DAILY 02/08/23 09/06/23 tablet,extended release 24 hr oxybutynin chloride 15 mg 15 mg PO DAILY 02/08/23 09/06/23 tablet,extended release 24 hr tamsulosin 0.4 mg capsule 0.4 mg PO Q24H 02/08/23 09/06/23 Previous Rx's ?Medication ?Instructions ?Recorded oxycodone-acetaminophen 7.5 mg-325 1 tab PO TID PRN pain #90 tabs 08/17/23 mg tablet (Percocet) cephalexin 500 mg capsule 500 mg PO TID #21 caps 09/06/23 hydrocodone 7.5 mg-acetaminophen 1 tab PO TID PRN pain #90 tabs 09/22/23 325 mg tablet baclofen 10 mg tablet 10 mg PO BID PRN muscle spasm #60 11/10/23 tabs gabapentin 300 mg capsule 300 mg PO BID #60 caps 01/20/24 methocarbamol 750 mg tablet 750 mg PO Q6H PRN pain #30 tabs 07/02/24 Allergies Allergy/AdvReac Type Severity Reaction Status Date / Time No Known Drug Allergies Allergy Verified 07/02/24 10:28 Opioid HPI Opioid Management Most Recent Opioid Data: Last Pain Scale 2 07/02/24 10:31 07/02/24 [facility] Medical History Dyspnea on exertion ?R06.09 - Other forms of dyspnea (ICD-10) Arthritis ?M19.90 - Unspecified osteoarthritis, unspecified site (ICD-10) Right shoulder pain ?M25.511 - Pain in right shoulder (ICD-10) Back pain ?M54.9 - Dorsalgia, unspecified (ICD-10) Depression ?F32.A - Depression, unspecified (ICD-10) S/P extracorporeal shock wave therapy ?Z98.890 - Other specified postprocedural states (ICD-10) Glaucoma ?H40.9 - Unspecified glaucoma (ICD-10) Cataract ?H26.9 - Unspecified cataract (ICD-10) GERD (gastroesophageal reflux disease) ?K21.9 - Gastro-esophageal reflux disease without esophagitis (ICD-10) Hernia ?K46.9 - Unspecified abdominal hernia without obstruction or gangrene (ICD- 10) High cholesterol ?E78.00 - Pure hypercholesterolemia, unspecified (ICD-10) Right leg weakness ?R29.898 - Other symptoms and signs involving the musculoskeletal system (ICD-10) CVA (cerebral vascular accident) ?I63.9 - Cerebral infarction, unspecified (ICD-10) Extremity edema ?R60.0 - Localized edema (ICD-10) Coronary artery disease ?I25.10 - Atherosclerotic heart disease of [place] coronary artery without angina pectoris (ICD-10) Chronic low back pain ?M54.50 - Low back pain, unspecified (ICD-10) ?G89.29 - Other chronic pain (ICD-10) Lumbar stenosis ?M48.061 - Spinal stenosis, lumbar region without neurogenic claudication (ICD-10) Uses continuous positive airway pressure (CPAP) ventilation at home ?Z99.89 - Dependence on other enabling machines and devices (ICD-10) History of stroke ?Z86.73 - Personal history of transient ischemic attack (TIA), and cerebral infarction without residual deficits (ICD-10) Osteoarthritis ?M19.90 - Unspecified osteoarthritis, unspecified site (ICD-10) Upper back pain ?M54.9 - Dorsalgia, unspecified (ICD-10) Low back pain ?M54.50 - Low back pain, unspecified (ICD-10) Anxiety ?F41.9 - Anxiety disorder, unspecified (ICD-10) Kidney stone ?N20.0 - Calculus of kidney (ICD-10) Sleep apnea ?G47.30 - Sleep apnea, unspecified (ICD-10) Hypertension ?I10 - Essential (primary) hypertension (ICD-10) Surgical History History of colonoscopy ?Z98.890 - Other specified postprocedural states (ICD-10) History of heart artery stent ?Z95.5 - Presence of coronary angioplasty implant and graft (ICD-10) History of cardiac catheterization ?Z98.890 - Other specified postprocedural states (ICD-10) S/P cataract extraction and insertion of intraocular lens ?Z98.49 - Cataract extraction status, unspecified eye (ICD-10) ?Z96.1 - Presence of intraocular lens (ICD-10) S/P triple vessel bypass ?Z95.1 - Presence of aortocoronary bypass graft (ICD-10) History of knee replacement ?Z96.659 - Presence of unspecified artificial knee joint (ICD-10) History of repair of hiatal hernia ?Z98.890 - Other specified postprocedural states (ICD-10) ?Z87.19 - Personal history of other diseases of the digestive system (ICD-10) Family History Other Family history of cancer Family history of diabetes mellitus Family history of heart disease Family history of hypertension Family history of myocardial infarction Social History Within the past year, how often did you have a drink containing alcohol: monthly or less Smoking status: Never smoker Highest level of school completed/degree received: high school graduate Little interest or pleasure in doing things: not at all Feeling down, depressed, or hopeless: not at all Exam Narrative Exam Narrative: Nurses note and vital signs reviewed and patient is not hypoxic. afebrile General: The patient appears well and in no apparent distress. Patient is resting comfortably on cart. GCS = 15. Skin: Warm, dry, no pallor noted. Eyes: PERRLA, EOMI Cardiovascular: Regular Rate and Rhythm Respiratory: Patient is in no distress, no accessory muscle use, lungs are clear to auscultation, no wheezing, rales or rhonchi Back: Focal tenderness palpation at the posterior aspect of the left rib cage just lateral and inferior to the left scapular tip. There is a 4 cm x 3 cm hematoma in this area. His tenderness is at the actual musculature in and around the rib cage. No palpable rib fracture. No thoracic vertebral or lumbar vertebral tenderness to palpation. Musculoskeletal: no sign of long bone fracture. Moves all four extremities in all modalities with 5/5 strength. Neurological: A&O x4, normal equal licensing representative strength, normal finger to nose, normal speech, normal coordination, normal motor, normal sensory. Psychiatric: Cooperative Constitutional Vital Signs, click to edit/add: Last Vital Signs Temp 98 F 07/02/24 10:23 Pulse 74 07/02/24 10:23 Resp 07/02/24 10:23 BP 110/70 07/02/24 10:23 Pulse Ox 96 07/02/24 10:23 O2 Del Method Room Air 07/02/24 10:23 Course Vital Signs Vital signs: Vital Signs Temperature 98 F 07/02/24 10:23 Pulse Rate 74 07/02/24 10:23 Respiratory Rate 07/02/24 10:23 Blood Pressure 110/70 07/02/24 10:23 Pulse Oximetry 96 07/02/24 10:23 Oxygen Delivery Method Room Air 07/02/24 10:23 Temperature 98 F 07/02/24 10:23 Pulse Rate 74 07/02/24 10:23 Respiratory Rate 20 07/02/24 10:23 Blood Pressure 110/70 07/02/24 10:23 Pulse Oximetry 96 07/02/24 10:23 Oxygen Delivery Method Room Air 07/02/24 10:23 MDM - Back Pain/Injury MDM Narrative Medical decision making narrative: Patient without palpable rib fracture. Exam consistent with acute strain of the muscular portion of the rib cage in the area of impact. The hematoma is stable. Vital signs are unremarkable as well. Patient was ordered to receive oral Robaxin in the emergency department and then was discharged home with prescription for additional Robaxin to take at home. I had a long discussion with the patient and his about the expected 4 to 6- week healing time for this rib contusion and muscle strain of the rib cage. We discussed reasons to return to the emergency department. Discharge Plan Discharge Chief Complaint: Back Pain/Injury Clinical Impression: Contusion of rib on left side, Hematoma Patient Disposition: Home, Self-Care Time of Disposition Decision: 10:51 Prescriptions / Home Meds: New methocarbamol 750 mg tablet 750 mg PO Q6H PRN (Reason: pain) Qty: 30 0RF No Action oxycodone-acetaminophen [Percocet] 7.5-325 mg tablet 1 tab PO TID PRN (Reason: pain) Qty: 90 0RF cephalexin 500 mg capsule 500 mg PO TID Qty: 21 0RF baclofen 10 mg tablet 10 mg PO BID PRN (Reason: muscle spasm) Qty: 60 2RF Rx Instructions: take 1/2 to 1 tab twice daily as needed gabapentin 300 mg capsule 300 mg PO BID Qty: 60 0RF citalopram 20 mg tablet 20 mg PO DAILY clopidogrel 75 mg tablet 75 mg PO DAILY finasteride 5 mg tablet 5 mg PO DAILY metoprolol succinate 50 mg tablet extended release 24 hr 50 mg PO DAILY isosorbide mononitrate 60 mg tablet extended release 24 hr 60 mg PO DAILY furosemide 20 mg tablet 20 mg PO DAILY oxybutynin chloride 15 mg tablet extended release 24hr 15 mg PO DAILY amlodipine-benazepril 10-20 mg capsule 1 cap PO DAILY atorvastatin 80 mg tablet 80 mg PO DAILY tamsulosin 0.4 mg capsule 0.4 mg PO Q24H aspirin [Adult Aspirin Regimen] 81 mg tablet,delayed release (DR/EC) 81 mg PO DAILY hydrocodone-acetaminophen 7.5-325 mg tablet 1 tab PO TID PRN (Reason: pain) Qty: 90 0RF Print Language: Maltese Instructions: Rib Contusion (ED) Referrals: Leo Garcias DO [Primary Care Provider] - 1 week
[2024-07-02] MEDS: METHOCARBAMOL 500 MG TABLET 1000 MG PO (11:01)
== END 2024-07-02 11:12 | disposition home or self-care (01) ==
PROVIDERS: Emergency Provider Emergency Medicine; PCP Internal Medicine
DX: S20.212A Contusion of left front wall of thorax, initial encounter (principal); S29.011A Strain of muscle and tendon of front wall of thorax, initial encounter; W18.39XA Other fall on same level, initial encounter; Z79.02 Long term (current) use of antithrombotics/antiplatelets; Z95.1 Presence of aortocoronary bypass graft
CPT/HCPCS: 99283

== ENCOUNTER 2024-07-06 11:14 | Outpatient (OUT) | payer MEDICARE, OTHER, SELFPAY ==
--- OUTSIDE RECORDS SUMMARY | 2024-07-06 11:21 | XMS_ITS | CCD ---
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 Role Phone PHYSICIAN, DEFAULT Admitting Unavailable PHYSICIAN, DEFAULT Attending Unavailable JAAMICA, LEO Primary Care Unavailable PHYSICIAN, DEFAULT Admitting Unavailable PHYSICIAN, DEFAULT Attending Unavailable JAMAICA, LEO Primary Care Unavailable PHYSICIAN, DEFAULT Admitting Unavailable PHYSICIAN, DEFAULT Attending Unavailable JAMAICA, LEO Primary Care Unavailable JAMAICA, LEO Primary Care Physician Erika Bender Unavailable JAMAICA, [...] Attending Unavailable ILENE GONZALEZ Attending Unavailable RUI JIEMNEZ Attending Unavailable RUI JIMENEZ Attending Unavailable CLAUDETTE BALDERRAMA Attending Unavailable Allergies Allergy Classification Reported Allergen(s) Allergy Type Date of Onset Reaction(s) Facility (1 source) 64565,00; Translations: [66568,00] Propensity to adverse reactions (disorder) 9 [facility] Repository (2 sources) patient allergy list reviewed by nurse or physicia Propensity to adverse reactions 9 Comment:[employer] Other (1 source) No Known Medication Allergies; Translations: [No Known Medication Allergies] Propensity to adverse reactions (disorder) [facility] Repository Medications Current Medications Medication [...] times daily as needed for pain HYDROcodone-acetaminophen (Cactus) 7.5-325 MG tablet TAKE 1 TABLET BY [...] Daily, # 90 tab(s), Refills(s) 3, Pharmacy: [facility]/pharmacy #[id number], 164, cm, 08/24/22 10:54:00 EDT, [...] Daily, # 90 tab(s), Refills(s) 3, Pharmacy: [facility]/pharmacy #[id number], 164, cm, 08/24/22 10:54:00 EDT, [...] Daily, # 30 tab(s), Refills(s) 11, Pharmacy: [facility]/pharmacy #[id number], 164, cm, 08/04/21 8:56:00 EDT, Height/Length Dosing, 139, kg, 08/04/21 8:56:00 EDT, Weight Dosing Start Date: 08/04/21 Status: [facility]four hours in the morning oxybutynin [...] BID, # 180 cap(s), Refills(s) 3, Pharmacy: [facility]/pharmacy #[id number], 164, cm, 08/24/22 10:54:00 EDT, Height/Length Dosing, 138, kg, 08/24/22 10:54:00 EDT, Weight Dosing Start Date: 07/12/23 Status: Ordered Start: 06-26-2022 take 1 capsule by mo [facility] twice daily tamsulosin 0.4 mg Cap 0.4 mg = 1 cap(s), Oral, BID, # 180 cap(s), Refills(s) 3, Pharmacy: [facility]/pharmacy #[id number], 164, cm, 02/23/22 11:10:00 EDT, Height/Length Dosing, 139, kg, 02/23/22 11:10:00 EDT, Weight Dosing Start Date: 06/26/22 Status: Ordered Start: 02-23-2022 End: 06-23-2022 take 1 capsule by mouth twice daily tamsulosin 0.4 mg Cap 0.4 mg = 1 cap(s), Oral, BID, X 30 day(s), # 60 cap(s), Refills(s) 3, Pharmacy: [facility]/pharmacy #[id number], 164, cm, 02/23/22 11:10:00 EDT, Height/Length Dosing, 139, kg, 02/23/22 11:10:00 EDT, Weight Dosing Start Date: 02/23/22 Stop Date: 06/23/22 Status: Ordered Start: 11-22-2020 End: 11-17-2021 take 1 capsule by mouth twice daily Flomax 0.4 mg Cap 0.4 mg = 1 cap(s), Oral, BID, X 90 day(s), # 180 cap(s), Refills(s) 3, [id number] 164, cm, 07/26/20 9:40:00 EDT, Height/Length [...] Coronary arteriosclerosis; 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 Deficiency [...] unspecified] Chronic Other aftercare (3 sources) Other detention (current) drug therapy; Translations: [OTH CUSTODIAL CURRENT DRUG THERAPY] Onset: 08-25-2021 Episodic Other [...] Resolved: 01-08-2021 Episodic Other aftercare (1 source) senior care (current) use of anticoagulants; Translations: [CUSTODIAL CURRNT USE ANTICOAGULANTS] Onset: 08-29-2021 Episodic Other aftercare (1 source) senior care (current) use of antithrombotics/ant iplatelets; 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 Take ppld-lyv-tgtdyfr and prescription medicines only as told by [...] medicine (more content not included)... Normal [facility] Urology Office/Clinic Noteon 08-31-2023 Urology Office/Clinic [...] with voice recognition artificial intelligence software, specifically [employer], [employer] and or [employer]. 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 Normal [facility] Comment on above: Result Comment: Elec tronically Signed By: ISAAC Huston APRN, [place] X\.br\Date and Time Signed: 08/31/23 09:08 EDT RAD - MISCon 08-17-2023 RAD - MISC [id number] IFF Normal [facility] BNPon 02-17-2022 Natriuretic peptide B (Bld) [Mass/Vol] 330.0 pg/mL Normal <=1,800.0 [facility] Comment on above: Performed By: #### B OPERATIONS CLERK, TSH, BMP #### [facility] [address] [place] [address] Dr. Temo Mckeon CBC AUTO DIFFon 02-17-2022 BASO # 0.1 103/ul Normal 0.0-0.1 [facility] Comment on above: Performed By: #### C BC #### [facility] [address] [place] [address] Dr. Temo Mckeon Basophils/100 WBC (Bld) 0.4 % Normal 0.2-2.0 [facility] Comment on above: Performed By: #### C BC #### [facility] [address] [place] [address] Dr. Temo Mckeon EO # 0.3 103/ul Normal 0.0-0.7 [facility] Comment on above: Performed By: #### C BC #### [facility] [address] [place] [address] Dr. Temo Mckeon Eosinophils/100 WBC (Bld) 2.8 % Normal 0.9-7.0 [facility] Comment on above: Performed By: #### C BC #### [facility] [address] [place] [address] Dr. Temo Mckeon Erythrocyte distribution width (RBC) [Ratio] 13.5 % Normal 11.0-15.0 [facility] Comment on above: Performed By: #### C BC #### [facility] [address] [place] [address] Dr. Temo Mckeon Hematocrit (Bld) [Volume fraction] 38.5 % Critically low 42.0-54.0 [facility] Comment on above: Performed By: #### C BC #### [facility] [address] [place] [address] Dr. Temo Mckeon Hemoglobin (Bld) [Mass/Vol] 12.5 g/dL Critically low 14.0-18.0 [facility] Comment on above: Performed By: #### C BC #### [facility] [address] [place] [address] Dr. Temo Mckeon IG # 0.11 10e3/ul Critically high 0.00-0.03 [facility] Comment on above: Performed By: #### C BC #### [facility] [address] [place] [address] Dr. Temo Mckeon IG % 0.9 % Critically high 0.0-0.5 [facility] Comment on above: Performed By: #### C BC #### [facility] [address] [place] [address] Dr. Temo Mckeon LYMPH # 2.1 103/ul Normal 1.2-3.8 [facility] Comment on above: Performed By: #### C BC #### [facility] [address] [place] [address] Dr. Temo Mckeon Lymphocytes/100 WBC (Bld) 17.5 % Critically low 20.5-60.0 [facility] Comment on above: Performed By: #### C BC #### [facility] [address] [place] [address] Dr. Temo Mckeon MANUAL DIFF REQ NO Normal [facility] Comment on above: Performed By: #### C BC #### [facility] [address] [place] [address] Dr. Temo Mckeon MCH (RBC) [Entitic mass] 30.6 pg Normal 25.9-34.0 [facility] Comment on above: Performed By: #### C BC #### [facility] [address] [place] [address] Dr. Temo Mckeon MCHC (RBC) [Mass/Vol] 32.5 g/dL Normal 29.9-35.2 [facility] Comment on above: Performed By: #### C BC #### [facility] [address] [place] [address] Dr. Temo Mckeon MCV (RBC) [Entitic vol] 94.1 fL Critically high 80.0-94.0 [facility] Comment on above: Performed By: #### C BC #### [facility] [address] [place] [address] Dr. Temo Mckeon MONO # 0.9 103/ul Critically high 0.3-0.8 [facility] Comment on above: Performed By: #### C BC #### [facility] [address] [place] [address] Dr. Temo Mckeon Monocytes/100 WBC (Bld) 7.9 % Normal 1.7-12.0 [facility] Comment on above: Performed By: #### C BC #### [facility] [address] [place] [address] Dr. Temo Mckeon NEUT # 8.4 103/ul Critically high 1.4-6.5 [facility] Comment on above: Performed By: #### C BC #### [facility] [address] [place] [address] Dr. Temo Mckeon Neutrophils/100 WBC (Bld) 70.5 % Normal 43.0-75.0 [facility] Comment on above: Performed By: #### C BC #### [facility] [address] [place] [address] Dr. Temo Mckeon Platelet mean volume (Bld) [Entitic vol] 10.5 fL Normal 9.5-13.5 [facility] Comment on above: Performed By: #### C BC #### [facility] [address] [place] [address] Dr. Temo Mckeon PLT 172 103/ul Normal 150-450 [facility] Comment on above: Performed By: #### C BC #### [facility] [address] [place] [address] Dr. Temo Mckeon RBC 4.09 106/ul Critically low 4.70-6.10 [facility] Comment on above: Performed By: #### C BC #### [facility] [address] [place] [address] Dr. Temo Mckeon WBC 11.9 103/ul Critically high 4.0-11.0 [facility] Comment on above: Performed By: #### C BC #### [facility] [address] [place] [address] Dr. Temo Mckeon PROF CHEM 8 (BAS METB)on Anion gap [Moles/Vol] 14.2 mmol/L Normal [facility] Comment on above: Performed By: #### B OPERATIONS CLERK, TSH, BMP #### [facility] [address] [place] [address] Dr. Temo Mckeon Calcium [Mass/Vol] 9.1 mg/dL Normal 8.5-10.1 [facility] Comment on above: Performed By: #### B OPERATIONS CLERK, TSH, BMP #### [facility] [address] [place] [address] Dr. Temo Mckeon Chloride [Moles/Vol] 105 mmol/L Normal 98-107 [facility] Comment on above: Performed By: #### B OPERATIONS CLERK, TSH, BMP #### [facility] [address] [place] [address] Dr. Temo Mckeon CO2 [Moles/Vol] 25.3 mmol/L Normal 21.0-32.0 [facility] Comment on above: Performed By: #### B OPERATIONS CLERK, TSH, BMP #### [facility] [address] [address] [address] Temo Mckeon Creatinine [Mass/Vol] 1.72 mg/dL Critically high 0.70-1.30 [facility] Comment on above: Performed By: #### B OPERATIONS CLERK, TSH, BMP #### [facility] [address] [address] [address] Temo Mckeon EGFR-AF BURKINAN 47 mL/min/1.73m2 Critically low >=60 [facility] Comment on above: Performed By: #### B OPERATIONS CLERK, TSH, BMP #### [facility] [address] [place] [address] Dr. Temo Mckeon EGFR-NON AF BURKINAN 39 mL/min/1.73m2 Critically low >=60 [facility] Comment on above: Performed By: #### B OPERATIONS CLERK, TSH, BMP #### [facility] [address] [place] [address] Dr. Temo Mckeon Glucose [Mass/Vol] 134 mg/dL Critically high 74-106 [facility] Comment on above: Performed By: #### B OPERATIONS CLERK, TSH, BMP #### [facility] [address] [place] [address] Dr. Temo Mckeon Potassium [Moles/Vol] 4.5 mmol/L Normal 3.5-5.1 [facility] Comment on above: Performed By: #### B OPERATIONS CLERK, TSH, BMP #### [facility] [address] [place] [address] Dr. Temo Mckeon Sodium [Moles/Vol] 140 mmol/L Normal 136-145 [facility] Comment on above: Performed By: #### B OPERATIONS CLERK, TSH, BMP #### [facility] [address] [place] [address] Dr. Temo Mckeon Urea nitrogen [Mass/Vol] 36.0 mg/dL Critically high 7.0-18.0 [facility] Comment on above: Performed By: #### B OPERATIONS CLERK, TSH, BMP #### [facility] [address] [place] [address] Dr. Temo Mckeon Urea nitrogen/Creatinine [Mass ratio] 20.9 mg/mg Normal [facility] Comment on above: Performed By: #### B OPERATIONS CLERK, TSH, BMP #### [facility] [address] [place], [place] [address] Dr. Temo Mckeon TSHon 02-17-2022 TSH 1.708 uIU/mL Normal 0.358-3.740 [facility] Comment on above: Performed By: #### B OPERATIONS CLERK, TSH, BMP #### [facility] [id number] Temo Mckeon XR KUB 1 VIEWon [...] RADU CHRISTENSEN Date: 2022-02-17 11:43 Normal [facility] METHYLMALONIC ACID (MMA)on 0 11-01-2021 Methylmalonic Acid, Serum 205 nmol/L Normal 0-378 [facility] Comment on above: Performed By: #### C BC #### [facility] [id number] Temo Mckeon FOLATE ([facility])on 2 Folate >20.0 Normal >3.0 [facility] Comment on above: Result Comment: A se rum folate concentration of less than 3.1 ng/mL is considered to represent clinical deficiency. Performed By: #### B MP, ALT, LIPID #### [facility] [address] [address] [address] Temo Mckeon CBC AUTO DIFFon 10-29-2021 BASO # 0.1 103/ul Normal 0.0-0.1 [facility] Comment on above: Performed By: #### C BC #### [facility] [address] [address] [address] Temo Mckeon Basophils/100 WBC (Bld) 0.5 % Normal 0.2-2.0 [facility] Comment on above: Performed By: #### C BC #### [facility] [address] [address] [address] Temo Mckeon EO # 0.3 103/ul Normal 0.0-0.7 [facility] Comment on above: Performed By: #### C BC #### [facility] [address] [place] [address] Dr. Temo Mckeon Eosinophils/100 WBC (Bld) 3.3 % Normal 0.9-7.0 [facility] Comment on above: Performed By: #### C BC #### [facility] [address] [place] [address] Dr. Temo Mckeon Erythrocyte distribution width (RBC) [Ratio] 13.3 % Normal 11.0-15.0 [facility] Comment on above: Performed By: #### C BC #### [facility] [address] [place] [address] Dr. Temo Mckeon Hematocrit (Bld) [Volume fraction] 40.4 % Critically low 42.0-54.0 [facility] Comment on above: Performed By: #### C BC #### [facility] [address] [place] [address] Dr. Temo Mckeon Hemoglobin (Bld) [Mass/Vol] 13.4 g/dL Critically low 14.0-18.0 [facility] Comment on above: Performed By: #### C BC #### [facility] [address] [place] [address] Dr. Temo Mckeon IG # 0.06 10e3/ul Critically high 0.00-0.03 [facility] Comment on above: Performed By: #### C BC #### [facility] [address] [place] [address] Dr. Temo Mckeon IG % 0.6 % Critically high 0.0-0.5 [facility] Comment on above: Performed By: #### C BC #### [facility] [address] [place] [address] Dr. Temo Mckeon LYMPH # 2.2 103/ul Normal 1.2-3.8 [facility] Comment on above: Performed By: #### C BC #### [facility] [address] [place] [address] Dr. Temo Mckeon Lymphocytes/100 WBC (Bld) 22.6 % Normal 20.5-60.0 [facility] Comment on above: Performed By: #### C BC #### [facility] [address] [place] [address] Dr. Temo Mckeon MANUAL DIFF REQ NO Normal [facility] Comment on above: Performed By: #### C BC #### [facility] [address] [place] [address] Dr. Temo Mckeon MCH (RBC) [Entitic mass] 30.8 pg Normal 25.9-34.0 [facility] Comment on above: Performed By: #### C BC #### [facility] [address] [place] [address] Dr. Temo Mckeon MCHC (RBC) [Mass/Vol] 33.2 g/dL Normal 29.9-35.2 [facility] Comment on above: Performed By: #### C BC #### [facility] [address] [place] [address] Dr. Temo Mckeon MCV (RBC) [Entitic vol] 92.9 fL Normal 80.0-94.0 [facility] Comment on above: Performed By: #### C BC #### [facility] [address] [place] [address] Dr. Temo Mckeon MONO # 0.7 103/ul Normal 0.3-0.8 [facility] Comment on above: Performed By: #### C BC #### [facility] [address] [address] [address] Temo Mckeon Monocytes/100 WBC (Bld) 7.6 % Normal 1.7-12.0 [facility] Comment on above: Performed By: #### C BC #### [facility] [address] [address] [address] Temo Mckeon NEUT # 6.2 103/ul Normal 1.4-6.5 [facility] Comment on above: Performed By: #### C BC #### [facility] [address] [place] [address] Dr. Temo Mckeon Neutrophils/100 WBC (Bld) 65.4 % Normal 43.0-75.0 [facility] Comment on above: Performed By: #### C BC #### [facility] [address] [place] [address] Dr. Temo Mckeon Platelet mean volume (Bld) [Entitic vol] 10.5 fL Normal 9.5-13.5 [facility] Comment on above: Performed By: #### C BC #### [facility] [address] [place] [address] Dr. Temo Mckeon PLT 169 103/ul Normal 150-450 [facility] Comment on above: Performed By: #### C BC #### [facility] [address] [place] [address] Dr. Temo Mckeon RBC 4.35 106/ul Critically low 4.70-6.10 [facility] Comment on above: Performed By: #### C BC #### [facility] [address] [place] [address] Dr. Temo Mckeon WBC 9.5 103/ul Normal 4.0-11.0 [facility] Comment on above: Performed By: #### C BC #### [facility] [address] [place] [address] Dr. Temo Mckeon FERRITINon 10-29-2021 Ferritin [Mass/Vol] 423.0 ng/mL Critically high 26.0-388.0 [facility] Comment on above: Performed By: #### C BC #### [facility] [address] [address] [address] Temo Mckeon IRON AND TIBCon 10-29-2021 % SATURATION 25.6 % Normal [facility] Comment on above: Performed By: #### C BC #### [facility] [address] [address] [address] Temo Mckeon Iron [Mass/Vol] 79.0 ug/dL Normal 65.0-175.0 [facility] Comment on above: Performed By: #### C BC #### [facility] [address] [address] [address] Temo Mckeon TIBC DIRECT 308.0 ug/dL Normal 250.0-450.0 [facility] Comment on above: Performed By: #### C BC #### [facility] [address] [place] [address] Dr. Temo Mckeon LIPID PROFILEon 10-29-2021 CHOL-HDL RATIO NORM SEE BELOW Normal [facility] Comment on above: Result Comment: 3.3 - 4.4 LOW RISK 4.4 - 7.1 AVERAGE RISK 7.1 - 11.0 MODERATE RISK >11.0 HIGH RISK Performed By: #### B MP, ALT, LIPID #### [facility] [address] [address] [address] Temo Mckeon Cholesterol [Mass/Vol] 93 mg/dL Normal <=200 [facility] Comment on above: Performed By: #### B MP, ALT, LIPID #### [facility] [address] [address] [address] Temo Mckeon Cholesterol in HDL [Mass/Vol] 40 mg/dL Normal 40-60 [facility] Comment on above: Performed By: #### B MP, ALT, LIPID #### [facility] [address] [address] [address] Temo Mckeon Cholesterol in LDL [Mass/Vol] 35.4 mg/dL Normal [facility] Comment on above: Performed By: #### B MP, ALT, LIPID #### [facility] [address] [address] [address] Temo Mckeon Cholesterol.total/C holesterol in HDL [Mass ratio] 2.3 {ratio} Normal [facility] Comment on above: Performed By: #### B MP, ALT, LIPID #### [facility] [address] [address] [address] Temo Mckeon HDL NORMAL > or = 60 mg/dl - LO W CARDIOVASCULAR RISK <40 mg/dl - HIGH CARDIOVASCULAR RISK Normal [facility] Comment on above: Performed By: #### B MP, ALT, LIPID #### [facility] [address] [address] [address] Temo Mckeon LDL CALC NORMAL SEE BELOW Normal [facility] Comment on above: Result Comment: <100 mg/dl OPTIMAL 100 - 129 mg/dl NEAR OR ABOVE OPTIMAL 130 - 159 mg/dl BORDERLINE HIGH 160 - 189 mg/dl HIGH >190 mg/dl VERY HIGH Performed By: #### B MP, ALT, LIPID #### [facility] [address] [place] [address] Dr. Temo Mckeon Triglyceride [Mass/Vol] 88 mg/dL Normal <=150 [facility] Comment on above: Performed By: #### B MP, ALT, LIPID #### [facility] [address] [address] [address] Temo Mckeon VLDL CALC 17.6 mg/dL Normal [facility] Comment on above: Performed By: #### B MP, ALT, LIPID #### [facility] [address] [address] [address] Temo Mckeon PROF CHEM 8 (BAS METB)on Anion gap [Moles/Vol] 14.6 mmol/L Normal [facility] Comment on above: Performed By: #### B MP, ALT, LIPID #### [facility] [address] [address] [address] Temo Mckeon Calcium [Mass/Vol] 8.8 mg/dL Normal 8.5-10.1 [facility] Comment on above: Performed By: #### B MP, ALT, LIPID #### [facility] [address] [address] [address] Temo Mckeon Chloride [Moles/Vol] 106 mmol/L Normal 98-107 [facility] Comment on above: Performed By: #### B MP, ALT, LIPID #### [facility] [address] [address] [address] Temo Mckeon CO2 [Moles/Vol] 23.8 mmol/L Normal 21.0-32.0 [facility] Comment on above: Performed By: #### B MP, ALT, LIPID #### [facility] [address] [address] [address] Temo Mckeon Creatinine [Mass/Vol] 1.57 mg/dL Critically high 0.70-1.30 [facility] Comment on above: Performed By: #### B MP, ALT, LIPID #### [facility] [address] [place] [address] Dr. Temo Mckeon EGFR-AF BURKINAN 52 mL/min/1.73m2 Critically low >=60 [facility] Comment on above: Performed By: #### B MP, ALT, LIPID #### [facility] [address] [place] [address] Dr. Temo Mckeon EGFR-NON AF BURKINAN 43 mL/min/1.73m2 Critically low >=60 [facility] Comment on above: Performed By: #### B MP, ALT, LIPID #### [facility] [address] [place] [address] Dr. Temo Mckeon Glucose [Mass/Vol] 148 mg/dL Critically high 74-106 [facility] Comment on above: Performed By: #### B MP, ALT, LIPID #### [facility] [address] [place] [address] Dr. Temo Mckeon Potassium [Moles/Vol] 4.4 mmol/L Normal 3.5-5.1 [facility] Comment on above: Performed By: #### B MP, ALT, LIPID #### [facility] [address] [place] [address] Dr. Temo Mckeon Sodium [Moles/Vol] 140 mmol/L Normal 136-145 [facility] Comment on above: Performed By: #### B MP, ALT, LIPID #### [facility] [address] [place] [address] Dr. Temo Mckeon Urea nitrogen [Mass/Vol] 31.0 mg/dL Critically high 7.0-18.0 [facility] Comment on above: Performed By: #### B MP, ALT, LIPID #### [facility] [address] [place] [address] Dr. Temo Mckeon Urea nitrogen/Creatinine [Mass ratio] 19.7 mg/mg Normal [facility] Comment on above: Performed By: #### B MP, ALT, LIPID #### [facility] [address] [address] [address] Temo Mckeon SGPTon 10-29-2021 ALT [Catalytic activity/Vol] 39 U/L Normal 16-63 [facility] Comment on above: Performed By: #### B MP, ALT, LIPID #### [facility] [address] [place] [address] Dr. Temo Mckeon VITAMIN B12on 10-29-2021 Cobalamin (Vitamin B12) [Mass/Vol] 675.0 pg/mL Normal 193.0-986.0 [facility] Comment on above: Performed By: #### C BC #### [facility] [address] [place] [address] Dr. Temo Mckeon XR KUB 1 VIEWon [...] MARTA HALE Date: 2021-08-29 19:34 Normal [facility] CBC AUTO DIFFon 08-21-2021 BASO # 0.0 103/ul Normal 0.0-0.1 [facility] Comment on above: Performed By: #### C BC #### [facility] [address] [place] [address] Dr. Temo Mckeon Basophils/100 WBC (Bld) 0.3 % Normal 0.2-2.0 [facility] Comment on above: Performed By: #### C BC #### [facility] [address] [place] [address] Dr. Temo Mckeon EO # 0.3 103/ul Normal 0.0-0.7 [facility] Comment on above: Performed By: #### C BC #### [facility] [address] [place] [address] Dr. Temo Mckeon Eosinophils/100 WBC (Bld) 3.2 % Normal 0.9-7.0 [facility] Comment on above: Performed By: #### C BC #### [facility] [address] [place] [address] Dr. Temo Mckeon Erythrocyte distribution width (RBC) [Ratio] 13.5 % Normal 11.0-15.0 [facility] Comment on above: Performed By: #### C BC #### [facility] [address] [place] [address] Dr. Temo Mckeon Hematocrit (Bld) [Volume fraction] 38.8 % Critically low 42.0-54.0 [facility] Comment on above: Performed By: #### C BC #### [facility] [address] [place] [address] Dr. Temo Mckeon Hemoglobin (Bld) [Mass/Vol] 12.8 g/dL Critically low 14.0-18.0 [facility] Comment on above: Performed By: #### C BC #### [facility] [address] [place] [address] Dr. Temo Mckeon IG # 0.05 10e3/ul Critically high 0.00-0.03 [facility] Comment on above: Performed By: #### C BC #### [facility] [address] [place] [address] Dr. Temo Mckeon IG % 0.5 % Normal 0.0-0.5 [facility] Comment on above: Performed By: #### C BC #### [facility] [address] [place] [address] Dr. Temo Mckeon LYMPH # 1.8 103/ul Normal 1.2-3.8 [facility] Comment on above: Performed By: #### C BC #### [facility] [address] [place] [address] Dr. Temo Mckeon Lymphocytes/100 WBC (Bld) 19.6 % Critically low 20.5-60.0 [facility] Comment on above: Performed By: #### C BC #### [facility] [address] [place] [address] Dr. Temo Mckeon MANUAL DIFF REQ NO Normal [facility] Comment on above: Performed By: #### C BC #### [facility] [address] [place] [address] Dr. Temo Mckeon MCH (RBC) [Entitic mass] 31.1 pg Normal 25.9-34.0 [facility] Comment on above: Performed By: #### C BC #### [facility] [address] [place] [address] Dr. Temo Mckeon MCHC (RBC) [Mass/Vol] 33.0 g/dL Normal 29.9-35.2 [facility] Comment on above: Performed By: #### C BC #### [facility] [address] [place] [address] Dr. Temo Mckeon MCV (RBC) [Entitic vol] 94.4 fL Critically high 80.0-94.0 [facility] Comment on above: Performed By: #### C BC #### [facility] [address] [place] [address] Dr. Temo Mckeon MONO # 0.7 103/ul Normal 0.3-0.8 [facility] Comment on above: Performed By: #### C BC #### [facility] [address] [place] [address] Dr. Temo Mckeon Monocytes/100 WBC (Bld) 7.5 % Normal 1.7-12.0 [facility] Comment on above: Performed By: #### C BC #### [facility] [address] [place] [address] Dr. Temo Mckeon NEUT # 6.4 103/ul Normal 1.4-6.5 [facility] Comment on above: Performed By: #### C BC #### [facility] [address] [address] [address] Temo Mckeon Neutrophils/100 WBC (Bld) 68.9 % Normal 43.0-75.0 [facility] Comment on above: Performed By: #### C BC #### [facility] [address] [address] [address] Temo Mckeon Platelet mean volume (Bld) [Entitic vol] 10.2 fL Normal 9.5-13.5 [facility] Comment on above: Performed By: #### C BC #### [facility] [address] [place] [address] Dr. Temo Mckeon PLT 160 103/ul Normal 150-450 [facility] Comment on above: Performed By: #### C BC #### [facility] [address] [place] [address] Dr. Temo Mckeon RBC 4.11 106/ul Critically low 4.70-6.10 [facility] Comment on above: Performed By: #### C BC #### [facility] [address] [place] [address] Dr. Temo Mckeon WBC 9.3 103/ul Normal 4.0-11.0 [facility] Comment on above: Performed By: #### C BC #### [facility] [address] [place] [address] Dr. Temo Mckeon Covid-19 PCR ([facility] 08[facility]08 SARS-CoV-2 (COVID-19) RNA PRADEEP+probe Ql (Unsp spec) Not detected Normal NOT DETECTED [facility] Comment on above: Result Comment: This test is not yet approved or cleared by the [place] FDA. When there are no FDA-approved or cleared tests available, and other criteria are met, FDA can make tests available under an emergency access mechanism called an Emergency Use Authorization (EUA). The EUA for this test is supported by the [place] of Health and Human Service's (HHS's) declaration [...] SARS-CoV-2. Performed By: #### C BC #### [facility] [address] [place] [address] Dr. Temo Mckeon PROF CHEM 8 (BAS METB)on Anion gap [Moles/Vol] 12.4 mmol/L Normal [facility] Comment on above: Performed By: #### C BC #### [facility] [address] [place] [address] Dr. Temo Mckeon Calcium [Mass/Vol] 8.6 mg/dL Normal 8.5-10.1 [facility] Comment on above: Performed By: #### C BC #### [facility] [address] [place] [address] Dr. Temo Mckeon Chloride [Moles/Vol] 105 mmol/L Normal 98-107 [facility] Comment on above: Performed By: #### C BC #### [facility] [address] [place] [address] Dr. Temo Mckeon CO2 [Moles/Vol] 27.0 mmol/L Normal 22.0-30.0 [facility] Comment on above: Performed By: #### C BC #### [facility] [address] [place] [address] Dr. Temo Mckeon Creatinine [Mass/Vol] 1.57 mg/dL Critically high 0.66-1.25 [facility] Comment on above: Performed By: #### C BC #### [facility] [address] [place] [address] Dr. Temo Mckeon EGFR-AF BURKINAN 52 mL/min/1.73m2 Critically low >=60 [facility] Comment on above: Performed By: #### C BC #### [facility] [address] [address] [address] Temo Mckeon EGFR-NON AF BURKINAN 43 mL/min/1.73m2 Critically low >=60 [facility] Comment on above: Performed By: #### C BC #### [facility] [address] [address] [address] Temo Mckeon Glucose [Mass/Vol] 145 mg/dL Critically high 74-106 [facility] Comment on above: Performed By: #### C BC #### [facility] [address] [address] [address] Temo Mckeon Potassium [Moles/Vol] 4.4 mmol/L Normal 3.4-5.0 [facility] Comment on above: Performed By: #### C BC #### [facility] [address] [address] [address] Temo Mckeon Sodium [Moles/Vol] 140 mmol/L Normal 137-145 [facility] Comment on above: Performed By: #### C BC #### [facility] [address] [address] [address] Temo Mckeon Urea nitrogen [Mass/Vol] 32.0 mg/dL Critically high 7.0-18.0 [facility] Comment on above: Performed By: #### C BC #### [facility] [address] [address] [address] Temo Mckeon Urea nitrogen/Creatinine [Mass ratio] 20.4 mg/mg Normal [facility] Comment on above: Performed By: #### C BC #### [facility] [address] [address] [address] Temo Mckeon PROTIMEon 08-21-2021 INR Coag (PPP) [Relative time] 1.04 {INR} Normal [facility] Comment on above: Performed By: #### C BC #### [facility] [address] [address] [address] Temo Mckeon INR GUIDELINES SEE BELOW Normal [facility] Comment on above: Result Comment: APPLE RED INR: 2.0 - 3.0 CONDITIONS NOT LISTED BELOW 2.5 - 3.5 FOR PROSTHETIC HEART VALVE REPLACEMENT 2.5 - 3.5 RECURRENT THROMBOSIS Performed By: #### C BC #### [facility] [address] [place] [address] Dr. Temo Mckeon PT Coag (PPP) [Time] 11.2 s Normal 9.0-11.6 [facility] Comment on above: Performed By: #### C BC #### [facility] [address] [place] [address] Dr. Temo Mckeon PTTon 08-21-2021 aPTT Coag (Bld) [Time] 25.2 s Normal 22.3-36.2 [facility] Comment on above: Performed By: #### C BC #### [facility] [address] [place] [address] Dr. Temo Mckeon XR KUB 1 VIEWon [...] TANISHA MATOS Date: 2021-07-29 09:21 Normal [facility] Covid-19 PCR ([facility]on 04-10 SARS-CoV-2 (COVID-19) RNA PRADEEP+probe Ql (Unsp spec) Not detected Normal NOT DETECTED [facility] Comment on above: Result Comment: This test is not yet approved or cleared by the [place] FDA. When there are no FDA-approved or cleared tests available, and other criteria are met, FDA can make tests available under an emergency access mechanism called an Emergency Use Authorization (EUA). The EUA for this test is supported by the [place] of Health and Human Service's (HHS's) declaration [...] consistent with SARS-CoV-2. Performed By: #### C [facility] #### [facility] [address] [address] [address] angio chest PE protocolon 03-07-2021 CT angio chest PE protocol [facility] [address] [place] [address] CT Scan Report Signed Patient: Mason Almanzar MR#: [id number] 71 : 1945 Acct:[id number] Age/Sex: 75 / M ADM Date: 03/07/21 Loc: CT Room: Type: [facility] Attending Dr: Erika Bender MD Ordering [...] Balwinder Zambrano M.D.03/07/2021 2:01 PM Dictation Location: [address] [address] Transcribed By: [facility] 03/07/21 1401 Dictated By: Balwinder Zambrano DO 03/07/21 1359 Signed By: 03/07/[address] [facility] ECH echo transthoracicon ECH echo transthoracic [facility] [place] [place] [address] Echocardiogram Signed Patient: Mason Almanzar MR#: [id number] 71 : 1945 Acct:[id number] Age/Sex: 75 / M ADM Date: 03/07/21 Loc: CT Room: Type: [facility] Attending Dr: Erika Bender MD Ordering Provider: Erika Bender MD Date of Service: 03/07/21 [facility] echo transthoracic: DYSPNEA Copies to: MD [facility], BSA: 2.3 m2 BP: 174/95 mmHg HR: [...] DO 03/07/21 135 Signed By: 03/07/[address] [facility] ISTAT XRay CREon 03-07-2021 Creatinine [Mass/Vol] 1.5 mg/dL High 0.6-1.3 [facility] Comment on above: Result Comment: ER/E SD physician is notified/shown all ISTAT results. Critical values may be confirmed by laboratory testing if deemed necessary by ER attending doctor. Performed By: #### I SCRE #### [address] Point of Care testing , ISTAT GFR ( 55 [facility] Comment on above: Result Comment: GFR estimated reference range: According to KDOQI guidelines, <60 ml/min/1.73m2 is sufficient to diagnose a patient with chronic kidney disease. PERFORMED BY: [place] [address] PATHOLOGIST SMALL MACHINE BINDERY OPERATOR POOJA MYERS M.D. Performed By: #### I SCRE #### [address] Point of Care testing , ISTAT GFR (Non- Am [address] [facility] Comment on above: Performed By: #### I SCRE #### [address] Point of Care testing , Vital Signs Date Time Vital Sign Value Performing Clinician Facility 06-14-2024 10:34-0500 Body height 165.1 cm Claudette Balderrama DPM Work Phone: [facility] 06-14-2024 10:34-0500 Body mass index (BMI) [Ratio] 49.92 kg/m2 Claudette Balderrama DPM Work Phone: [facility] 06-14-2024 10:34-0500 Body weight 136.08 kg Claudette Balderrama DPM Work Phone: [facility] 02-21-2024 09:11-0400 Body height 165.1 cm Claudette Balderrama DPM Work Phone: [facility] 02-21-2024 09:11-0400 Body mass index (BMI) [Ratio] 49.92 kg/m2 Claudette Balderrama DPM Work Phone: [facility] 02-21-2024 09:11-0400 Body weight 136.08 kg Claudette Balderrama DPM Work Phone: [facility] 02-01-2023 09:30-0400 Body height 162.56 cm Leo Ball Other [employer] Other 02-01-2023 09:30-0400 Body mass index (BMI) [Ratio] 49.6 kg/m2 Leo Ball Other [employer] Other 02-01-2023 09:30-0400 Body weight 131.09 kg Leo Ball Other [employer] Other 02-01-2023 09:30-0400 Diastolic blood pressure 83 mm[Hg] Leo Ball Other [employer] Other 02-01-2023 09:30-0400 Respiratory rate 20 /min Leo Ball Other [employer] Other 02-01-2023 09:30-0400 SaO2% (BldA) [Mass fraction] 97 % Leo Ball Other [employer] Other 02-01-2023 09:30-0400 Systolic blood pressure 147 mm[Hg] Leo Ball Other [employer] Other 10-30-2022 09:00-0400 Body height 162.56 cm Leo Ball Other [employer] Other 10-30-2022 09:00-0400 Body mass index (BMI) [Ratio] 50.67 kg/m2 Leo Ball Other [employer] Other 10-30-2022 09:00-0400 Body weight 133.9 kg Leo Ball Other [employer] Other 10-30-2022 09:00-0400 Diastolic blood pressure 68 mm[Hg] Leo Ball Other [employer] Other 10-30-2022 09:00-0400 Respiratory rate 20 /min Leo Ball Other [employer] Other 10-30-2022 09:00-0400 SaO2% (BldA) [Mass fraction] 98 % Leo Ball Other [employer] Other 10-30-2022 09:00-0400 Systolic blood pressure 121 mm[Hg] Leo Ball Other [employer] Other 08-24-2022 10:32-0400 Blood Pressure Location Dominique ESTRELLA [facility] 08-24-2022 10:32-0400 Diastolic blood pressure 73 mm[Hg] Dominique ESTRELLA [facility] 08-24-2022 10:32-0400 Heart rate 59 /min Dominique ESTRELLA [facility] 08-24-2022 10:32-0400 Respiratory rate 16 /min Dominique ESTRELLA [facility] 08-24-2022 10:32-0400 Systolic blood pressure 125 mm[Hg] Dominique ESTRELLA [facility] 06-30-2022 09:00-0500 Body height 162.56 cm Leo Ball Other [employer] [facility] [employer] Other 06-30-2022 09:00-0500 Body mass index (BMI) [Ratio] 51.52 kg/m2 Leo Ball Other [employer] Other 06-30-2022 09:00-0500 Body weight 136.17 kg Leo Ball Other [employer] Other 06-30-2022 09:00-0500 Diastolic blood pressure 84 mm[Hg] Leo Ball Other [employer] Other 06-30-2022 09:00-0500 Respiratory rate 20 /min Leo Ball Other [employer] Other 06-30-2022 09:00-0500 Systolic blood pressure 128 mm[Hg] Leo Ball Other [employer] Other 02-23-2022 11:07-0400 Blood Pressure Location Dominique ESTRELLA [facility] 02-23-2022 11:07-0400 Diastolic blood pressure 74 mm[Hg] Dominique ESTRELLA [facility] 02-23-2022 11:07-0400 Heart rate 76 /min Dominique ESTRELLA [facility] 02-23-2022 11:07-0400 Respiratory rate 16 /min Dominique ESTRELLA [facility] 02-23-2022 11:07-0400 Systolic blood pressure 128 mm[Hg] Dominique ESTRELLA [facility] 08-04-2021 08:51-0400 Blood Pressure Location Dominique ESTRELLA [facility] 08-04-2021 08:51-0400 Diastolic blood pressure 72 mm[Hg] Dominique ESTRELLA [facility] 08-04-2021 08:51-0400 Heart rate 63 /min Dominique ESTRELLA [facility] 08-04-2021 08:51-0400 Respiratory rate 16 /min Dominique ESTRELLA [facility] 08-04-2021 08:51-0400 Systolic blood pressure 121 mm[Hg] Dominique ESTRELLA [facility] 04-01-2021 12:45-0500 Body height 162.56 cm Erika Bender Other [employer] Other 04-01-2021 12:45-0500 Body mass index (BMI) [Ratio] 51.15 kg/m2 Erika Bender Other [employer] Other 04-01-2021 12:45-0500 Body temperature 97.6 [degF] Kamal Chaban Other [employer] Other 04-01-2021 12:45-0500 Body weight 135.17 kg Kamal Chaban Other [employer] Other 04-01-2021 12:45-0500 Diastolic blood pressure 68 mm[Hg] Fitoal Chaban Other [employer] Other 04-01-2021 12:45-0500 Respiratory rate 20 /min Fitoal Chaban Other [employer] Other 04-01-2021 12:45-0500 SaO2% (BldA) [Mass fraction] 97 % Fitoal Chaban Other [employer] Other 04-01-2021 12:45-0500 Systolic blood pressure 140 mm[Hg] Fitoal Chaban Other [employer] Other 03-04-2021 16:15-0400 Body height 162.56 cm Fitoal Chaban Other [employer] Other 03-04-2021 16:15-0400 Body mass index (BMI) [Ratio] 51.15 kg/m2 Fitoal Chaban Other [employer] Other 03-04-2021 16:15-0400 Body temperature 98.3 [degF] Kamal Chaban Other [employer] Other 03-04-2021 16:15-0400 Body weight 135.17 kg Kamal Chaban Other [employer] Other 03-04-2021 16:15-0400 Diastolic blood pressure 68 mm[Hg] Erika Bender Other [employer] Other 03-04-2021 16:15-0400 Respiratory rate 20 /min Erika Bender Other [employer] Other 03-04-2021 16:15-0400 SaO2% (BldA) [Mass fraction] 97 % Erika Bender Other [employer] Other 03-04-2021 16:15-0400 Systolic blood pressure 148 mm[Hg] Erika Bender Other [employer] Other Encounters Encounter Date Encounter Type Care Provider Facility Start: 08-11-2024 ambulatory ERWIN Ball ty:[facility] Start: 06-14-2024 End: 06-14-2024 Bamboo flowsheet Claudette Balderrama DPM Work Phone: [facility] Start: 06-14-2024 End: 06-14-2024 Bamboo flowsheet Claudette Balderrama DPM Work Phone: [facility] Start: 06-14-2024 End: 06-14-2024 ambulatory CLAUDETTE BALDERRAMA Not Available Start: 06-14-2024 End: 06-14-2024 Patient encounter procedure Claudette Balderrama DPM Work Phone: [facility] Comment on above: Dermatophytosis of n ail (Primary Dx); Dystrophic nail; Pain around toenail, right foot; Pain around toenail, left foot Start: 02-21-2024 End: 02-21-2024 Bamboo flowsheet Claudette Balderrama DPM Work Phone: [facility] Start: 02-21-2024 End: 02-21-2024 Bamboo flowsheet Claudette Balderrama DPM Work Phone: [facility] Start: 02-21-2024 End: 02-21-2024 Patient encounter procedure Claudette Balderrama DPM Work Phone: [facility] Comment on above: Dermatophytosis of n ail (Primary Dx); Dystrophic nail; Pain around toenail, right foot; Pain around toenail, left foot Start: 02-21-2024 End: 02-21-2024 ambulatory CLAUDETTE BALDERRAMA Not Available Start: 01-31-2024 End: 01-31-2024 ambulatory [facility] Start: 01-04-2024 End: 01-04-2024 Bamboo flowsheet Rui Jimenez DO Work Phone: [facility] Start: 01-04-2024 End: 01-04-2024 Bamboo flowsheet Rui Burthler DO Work Phone: [facility] Start: 01-04-2024 End: 01-04-2024 ambulatory RUI JIMENEZ Not Available Start: 12-29-2023 End: 12-29-2023 Bamboo flowsheet Rui Burthler DO Work Phone: [facility] Start: 12-29-2023 End: 12-29-2023 Bamboo flowsheet Rui Sandoval Zahler DO Work Phone: [facility] Start: 12-29-2023 End: 12-29-2023 [...] procedure Orquidea X Juwanzech [facility] Start: 07-05-2023 End: 07-06-2023 ambulatory Mary Ann Villalobos MD Facility: [facility] Start: 06-21-2023 End: 06-22-2023 ambulatory Mary Ann Villalobos MD Facility: [facility] Start: 03-08-2023 End: 03-09-2023 ambulatory Mary Ann Villalobos MD Facility: [facility] Start: 02-08-2023 End: 02-09-2023 ambulatory Mary Ann Villalobos MD Facility: [facility] Start: 02-01-2023 End: 02-01-2023 ambulatory Leo Garcias Other [employer] Other Start: 02-01-2023 Office outpatient vi sit 25 minutes Leo Garcias [facility] Start: 01-13-2023 End: 01-13-2023 ambulatory Leo Garcias Other [employer] Other Start: 01-13-2023 Telephone encounter Leo CHILDRESS G [facility] Start: 11-09-2022 End: 11-09-2022 ambulatory Leo Garcias Other [employer] Other Start: 11-09-2022 Telephone encounter Leo CHILDRESS G [facility] Start: 10-30-2022 End: 10-30-2022 ambulatory Leo Garcias Other [employer] Other Start: 10-30-2022 Patient encounter procedure Leo Garcias [facility] Start: 08-24-2022 End: 08-24-2022 Patient encounter procedure Dominique ESTRELLA [facility] Start: 07-08-2022 End: 07-08-2022 ambulatory Leo Garcias Other [employer] Other Start: 07-08-2022 Telephone encounter Leo Garcias [facility] Start: 06-30-2022 End: 06-30-2022 ambulatory Leo [place] Other [employer] Other Start: 06-30-2022 Office outpatient vi sit 25 minutes Leo Garcias [facility] Start: 02-23-2022 End: 02-23-2022 Patient encounter procedure Dominique ESTRELLA [facility] Start: 02-17-2022 End: 02-18-[address] LEO GARCIAS Facility:[facility] Start: 10-29-2021 End: 10-30-[address] LEO GARCIAS Facility:[facility] Start: 10-22-2021 Adult health examination Louis Garcias Other [employer] Other Start: 08-28-2021 End: 08-28-[address] DOMINIQUE ESTRELLA Facility:[facility] Start: 08-25-2021 Encounter for preprocedural cardiovascular examination DR DOMINIQUE ESTRELLA [facility] Start: 08-25-2021 Encounter for preprocedural laboratory examination DR DOMINIQUE ESTRELLA [facility] Start: 08-25-[address] DOMINIQUE ESTRELLA [facility] Start: 08-21-2021 End: 08-22-[address] DOMINIQUE ESTRELLA Facility:[facility] Start: 08-21-2021 End: 08-22-2021 Encounter for preprocedural cardiovascular examination DR DOMINIQUE ESTRELLA Facility:[facility] Start: 08-04-2021 End: 08-04-2021 Patient encounter procedure Dominique ESTRELLA [facility] Start: 07-29-2021 End: 07-30-[address] DOMINIQUE ESTRELLA Facility:[facility] Start: 05-05-2021 End: 05-05-[address] LEO GARCIAS Facility:[facility] Start: 04-01-2021 End: 04-01-2021 ambulatory Kamal Chaban Other [employer] Other Start: 04-01-2021 Office outpatient vi sit 15 minutes Kamal Chaban [facility] Start: 03-04-2021 Office outpatient ne w 45 minutes Kamal Chaban [facility] Start: 08-28-2019 Preoperative cardiovascular examination Leo Garcias Other [employer] Other Start: 07-06-2018 End: 07-07-2018 Patient encounter procedure DEFAULT PHYSICIAN Facility:[facility] Start: 07-04-2018 End: 07-05-2018 Patient encounter procedure DEFAULT PHYSICIAN Facility:[facility] Start: 07-01-2018 End: 07-02-2018 Patient encounter procedure DEFAULT PHYSICIAN Facility:[facility] Procedures Date Procedure Procedure Detail Performing Clinician Start: 01-04-2024 End: 01-04-2024 [facility] xm&eval intermediate estab pt HSV epithelial keratitis Rui Jimenez DO Work Phone: Comment on above: HSV epithelial kerat itis (Primary Dx) Start: 12-29-2023 End: 12-29-2023 [facility] xm&eval compre new pt 1/> vst HSV epithelial keratitis Rui Jimenez DO Work Phone: Comment on above: HSV epithelial kerat itis (Primary Dx) Start: 10-29-[address] BETZY GARCIAS Comment on above: Performed By: #### C BC #### [facility] [address] [place] [address] Dr. Temo Mckeon Start: 08-28-2021 Extracorporeal shock [...] 11/30/2024 10:25 AM EDT Office Visit [facility] [address] [place] [phone] Ilene Gonzalez, RUSSIAN HISTORY PROFESSOR-EXECUTIVE KITCHEN MANAGER [address] [place] [address] [facility] Start: 09-25-2024 End: 09-25-2024 Patient encounter procedure 09/25/2024 9:45 AM EDT Procedure Visit [facility] [address] [place] [phone] Claudette Balderrama DPM [address] [place] [address] [facility] Start: 06-14-2024 End: 06-14-2024 Patient encounter procedure 06/14/2024 10:15 AM EST [facility] [address] [place] [phone] Claudette Balderrama DPM [address] [place] [address] [facility] Start: 02-21-2024 End: 02-21-2024 Patient encounter procedure 02/21/2024 9:15 AM EDT Procedure Visit [facility] [address] [place] [phone] Claudette Balderrama, DP [address] [address] Arrived [facility] Comment on above: Arrived Start: 01-11-2024 End: 01-11-2024 Patient encounter procedure 01/11/2024 9:30 AM EDT Procedure Visit [facility] [address] [place] [phone] Claudette Balderrama, KIAH [address] [place] [address] [facility] Start: 01-09-2024 Influenza vaccination Influenza Vacc ine (#1) [facility] Start: 01-04-2024 End: 01-04-2024 Patient encounter procedure 01/04/2024 11:00 AM EDT Office Visit [facility] [address] [place] [phone] Rui Jimenez, DO [address] [place] [address] Arrived [facility] Comment on above: Arrived Start: 12-29-2023 End: 12-29-2023 Patient encounter procedure 12/29/2023 11:30 AM EDT Office Visit [facility] [address] [place] [address] Rui Jimenez, DO [address] [place] [address] Arrived [facility] Comment on above: Arrived Immunizations Immunization Date Immunization Notes Care Provider Fa cili 02-09-2024 influenza, high dose seasonal, preservative-free Claudette Conchis DPM Work Phone: [facility] 02-09-2024 influenza virus vaccine, unspecified formulation Claudette Conchis DPM Work Phone: [facility] 02-01-2023 influenza virus vaccine, unspecified formulation Rui Zahler DO Work Phone: [facility] 02-01-2023 influenza, high dose seasonal, preservative-free Leo Garcias Other [employer] Other 03-23-2022 COVID-19 Pfizer (bivalent) Leo Garcias Other [employer] Other 02-24-2022 influenza virus vaccine, split virus (incl. purified surface antigen) Leo Garcias Other [employer] Other 02-24-2022 influenza virus vaccine, unspecified formulation Rui Zahler DO Work Phone: [facility] 02-24-2022 influenza, injectabl e, quadrivalent, preservative free Rui Zahler DO Work Phone: [facility] 02-24-2022 Influenza, Seasonal, Quadrivalent, Adjuvanted Rui Zahler DO Work Phone: [facility] 02-24-2022 influenza, high dose seasonal, preservative-free Leo Garcias Other [employer] Other 03-26-2021 SARS-CoV-2 (COVID-19 ) mRNA BNT-162b2 vax Dominique ESTRELLA [facility] Comment on above: Result Comment: 2021: [id number] 02-21-2021 influenza virus vaccine, split virus (incl. purified surface antigen) Leo Garcias Other [address] [facility] [employer] Other 02-21-2021 influenza virus vaccine, unspecified formulation Claudette DUPONTM Work Phone: [facility] 02-07-2021 influenza virus vaccine, unspecified formulation Dominique ESTRELLA [facility] 07-30-2020 COVID-19 Vaccine Pfi zer - Documentation Purposes Only Erika Bender Other [facility] 07-08-2020 COVID-19 Vaccine Pfi zer - Documentation Purposes Only Erika Bender Other [facility] 05-10-2020 SARS-CoV-2 (COVID-19 ) mRNA BNT-162b2 vax Dominiquerafael ESTRELLA [facility] Comment on above: Result Comment: pt h as had 3 shots to date 02-29-2020 influenza virus vaccine, split virus (incl. purified surface antigen) Leo Garcias Other [facility] [employer] Other 02-29-2020 influenza virus vaccine, unspecified formulation Claudette DUPONTM Work Phone: [facility] 02-16-2019 influenza virus vaccine, split virus (incl. purified surface antigen) Leo Garcias Other [address] [facility] [employer] Other 02-16-2019 influenza virus vaccine, unspecified formulation Claudette DUPONTM Work Phone: [facility] 01-24-2018 influenza virus vaccine, split virus (incl. purified surface antigen) Leo Garcias Other [employer] Other 01-24-2018 influenza virus vaccine, unspecified formulation Dominique ESTRELLA [facility] 01-24-2018 pneumococcal Conjuga te, unspecified formulation; Translations: [Need for prophylactic vaccination against Streptococcus pneumoniae (pneumococcus)] Leo Garcias Other [employer] Other 01-24-2018 pneumococcal polysaccharide vaccine, 23 valent Dominique ESTRELLA [facility] 01-24-2018 Seasonal trivalent influenza vaccine, adjuvanted, preservative free Rui Zahler DO Work Phone: [facility] 02-18-2017 influenza virus vaccine, split virus (incl. purified surface antigen) Leo Garcias Other [employer] Other 02-18-2017 influenza virus vaccine, unspecified formulation Dominique ESTRELLA [facility] 02-18-2017 influenza, high dose seasonal, preservative-free Rui Zahler DO Work Phone: [facility] 02-12-2016 influenza virus vaccine, split virus (incl. purified surface antigen) Leo Garcias Other [employer] Other 02-12-2016 influenza virus vaccine, unspecified formulation Dominique ESTRELLA [facility] 02-12-2016 influenza, high dose seasonal, preservative-free Rui Zahler DO Work Phone: [facility] [employer] 02-28-2015 tetanus and diphther ia toxoids, adsorbed, preservative free, for adult use (5 Lf of tetanus toxoid and 2 Lf of diphtheria toxoid) Leo Garcias Other [employer] Other 02-28-2015 pneumococcal conjuga te vaccine, 13 valent Leo Garcias Other [employer] Other 02-16-2014 tetanus and diphther ia toxoids, adsorbed, preservative free, for adult use (5 Lf of tetanus toxoid and 2 Lf of diphtheria toxoid) Leo Garcias Other [employer] Other 02-08-2013 tetanus and diphther ia toxoids, adsorbed, preservative free, for adult use (5 Lf of tetanus toxoid and 2 Lf of diphtheria toxoid) Leo Garcias Other [employer] Other 02-17-2012 tetanus and diphther ia toxoids, adsorbed, preservative free, for adult use (5 Lf of tetanus toxoid and 2 Lf of diphtheria toxoid) Leo Garcias Other [employer] Other 02-13-2009 pneumococcal polysaccharide vaccine, 23 valent Leo Garcias Other [employer] Other 10-17-2003 Td(adult) unspecifie d formulation Dominique ESTRELLA [facility] 10-17-2003 tetanus and diphther ia toxoids, not adsorbed, for adult use Rui Jimenez DO Work Phone: [facility] Payers Date Payer Category Payer Private Health Insurance 2018 Medicare 1958 Medicare [id number] 2.1 [id number] 1959 Private Health Insurance [id number] [id number] 1945 Unknown [id number] 2.16.8 40.1.550188.3.579.2.647 1945 Unknown [id number] 2.16.8 40.1.985339.3.579.2.647 1945 Unknown [id number] 2.16.8 40.1.043523.3.579.2.647 1945 Unknown [id number] 2.16.84 0.1.136830.3.579.2.593 1945 Unknown [id number] 2.16.84 0.1.886414.3.579.2.593 1945 Unknown [id number] 2.16.84 0.1.054861.3.579.2.593 1945 Unknown [id number] 2.16.84 0.1.681595.3.579.2.593 1945 Unknown [id number] 2.16.84 0.1.936762.3.579.2.593 1945 Unknown [id number] 2.16.84 0.1.804155.3.579.2.593 1945 Unknown [id number] 2.16.84 0.1.875605.3.579.2.593 1945 Unknown [id number] 2.16.84 0.1.474286.3.579.2.593 1945 Unknown [id number] 2.16. 840.1.460241.3.579.2.196 1945 Unknown [id number] 2.16. 840.1.083692.3.579.2.196 1945 Unknown [id number] 2.16. 840.1.641289.3.579.2.196 1945 Unknown [id number] 2.16. 840.1.746865.3.579.2.196 1945 Unknown [id number] 2.16. 840.1.978468.3.579.2.196 1946 Unknown [id number] 2.16. 840.1.528921.3.579.2.196 1945 Unknown [id number] 2.16.8 40.1.044483.3.579.2.727 1945 Unknown [id number] 2.16.8 40.1.503812.3.579.2.727 1945 Unknown [id number] 2.16.84 0.1.187086.3.579.2.1259 1945 Unknown [id number] 2.16.84 0.1.762156.3.579.2.1259 1945 Unknown [id number] 2.16.84 0.1.404053.3.579.2.1259 1946 Unknown [id number] 2.16.84 0.1.657955.3.579.2.1259 1945 Unknown [id number] 2.16.84 0.1.012638.3.579.2.9 1945 Unknown [id number] 2.16.84 0.1.108635.3.579.2.1259 Unknown Social History Date Type Detail Facility Start: 01-30-2021 End: 10-19-2022 Tobacco smoking status Never smoked tobacco (finding) [employer] Other Start: 01-04-2024 End: 02-21-2024 Sex Assigned At Male [facility] [employer] Other Tobacco smoking status Never [facility] Start: 10-19-2022 Tobacco use and exposure Smokeless [...] 08-31-2023 Functional Status N/A [facility] 08-24-2022 Functional Status N/A [facility] 02-23-2022 Functional Status N/A [facility] Clinical Notes 12-09-2020 to 06-14-2024 Claudette Balderrama, [...] 02/21/2024), Disp: 3.5 g, Rfl: 1 HYDROcodone-acetaminophen (Cactus) 7.5-325 MG tablet, TAKE 1 TABLET BY [...] and oriented. Pleasant disposition. 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 His spouse, Sharon [...] Claudette Balderrama DPM documented in this encounter [facility] 06-14-2024 Instructions Claudette Balderrama DPM - 06/14/2024 10:15 AM EST As noted documented in this encounter [facility] 02-21-2024 History of Present illness Narrative Images [...] MOUTH EVERY DAY, Disp: , Rfl: HYDROcodone-acetaminophen (Cactus) 7.5-325 MG tablet, TAKE 1 TABLET BY [...] and oriented. Pleasant disposition. 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 His spouse, Sharon [...] Claudette Balderrama DPM documented in this encounter [facility] 02-21-2024 Instructions Claudette Balderrama DPM - 02/21/2024 9:15 AM EDT As noted documented in this encounter [facility] 01-31-2024 Note [facility] Cardiology Clinic Note Chief Complaint: Patient [...] problems arise Shalonda Rai MD, MPH, FACC, [facility], [facility] Interventional Cardiology Pager Email: [email or web address] 01-04-2024 History of Present illness Narrative Images from the original note were not included. Assessment/Plan Diagnoses and all orders for this visit: HSV epithelial keratitis - Defect healed. Cont Acyclovir 400mg BID and Zirgan left eye (OS) TID, both until out. Stop Moxifloxacin. Start Pred Acetate left eye (OS) TID with 3 wk taper. documented in this encounter [facility] 12-29-2023 History of Present illness Narrative Images [...] eye (OS) QID. documented in this encounter [facility] 08-31-2023 Hospital Discharge instructions Patient Education 08/31/2023 [...] urethra. Follow these instructions at home: Take uldu-iru-bpyibyg and prescription medicines only as told by [...] provider. Document Revised: 11/12/2021 Document Reviewed: 11/12/2021 [employer] Patient Education 2022 manetch. 08/31/2023 09:07:49 Urinary Incontinence Urinary Incontinence Urinary [...] (electrical nerve stimulation). ?For women, using a internist medical doctor md to prevent urine leaks. This is a [...] right after experiencing incontinence. General instructions Take giln-lxp-qmjtnrz and prescription medicines only as told by [...] important. Where to find more information National [place] of Diabetes and Digestive and Kidney Diseases: www.niddk.nih.gov [employer] [employer]: www.urologyhealth.org Contact a health care [...] provider. Document Revised: 11/29/2020 Document Reviewed: 11/29/2020 [employer] Patient Education 2022 Elsevier Inc. Follow Up Care 08/24/2022 11:22:07 With:ISAAC Huston APRN, CHASE Colbert, URL Address: When: Unknown Comments:1 year with AKBAR With:SAMEER MONTIEL, Dominique Sequeira, URL Address: [facility] [address] [place] [phone] When: Unknown [facility] 02-01-2023 Evaluation note Encounter Date [...] use, the patient reduces the risk for GA, CVA, HTN, cardiac dysrhythmias and sudden cardiac [...] in remission (ICD-10 - F17.211) Continue abstinence [employer] Other 09-06-2023 Evaluation note* Encounter Date Diagnosis Assessment Notes Treatment Notes Treatment Clinical Notes Jan, Lumbosacral spondylosis with radiculopathy (ICD-10 - M47.27) [employer] Other 06-23-2023 Evaluation note* Encounter Date Diagnosis [...] use, the patient reduces the risk for GA, CVA, HTN, cardiac dysrhythmias and sudden cardiac [...] High risk medication use (ICD-10 - Z79.899) [employer] Other 04-17-2023 Hospital Discharge instructions Patient Education [...] urethra. Follow these instructions at home: Take vnmd-djz-udnljnb and prescription medicines only as told by [...] 04/26/2006 Document Revised: 03/21/2019 Document Reviewed: 05/31/2017 [employer] Patient Education 2020 manetch. Follow Up Care 02/23/2022 11:36:40 With:SAMEER MONTIEL, Dominique Sequeira, URL Address: [facility] [address] [place] [address]- When: Unknown [facility] 02-21-2023 Evaluation note* Encounter Date [...] use, the patient reduces the risk for GA, CVA, HTN, cardiac dysrhythmias and sudden cardiac [...] since initial CVA > 20 years ago [employer] Other 10-17-2022 Hospital Discharge instructions Patient Education 02/23/2022 11:32:02 Kidney Stones, Qnlv-lp-Sfqx Kidney Stones Kidney stones are rock-like masses [...] Follow these instructions at home: Medicines Take jjve-lpf-getqhar and prescription medicines only as told by [...] Document Reviewed: 09/12/2019 Elsevier Patient Education 2019 [employer] Inc. Follow Up Care 08/28/2021 11:53:17 With:SAMEER MONTIEL, Dominique Sequeira, URL Address: [facility] [address] [place] [address]- [phone] When:08/24/2022 [facility] 03-28-2022 Hospital Discharge instructions Patient [...] Follow these instructions at home: Medicines Take rbur-pcj-zcmtvqa and prescription medicines only as told by [...] 05/15/2008 Document Revised: 08/07/2019 Document Reviewed: 03/17/2017 [employer] Patient Education 2020 manetch. 08/04/2021 09:25:02 Calorie Counting for Weight Loss [...] 04/26/2006 Document Revised: 01/13/2019 Document Reviewed: 03/26/2017 [employer] Patient Education 2020 manetch. 08/04/2021 09:24:51 Benign Prostatic Hyperplasia Benign Prostatic [...] urethra. Follow these instructions at home: Take yphj-inc-nlprupn and prescription medicines only as told by [...] 04/26/2006 Document Revised: 03/21/2019 Document Reviewed: 05/31/2017 [employer] Patient Education 2020 manetch. Follow Up Care 01/30/2021 10:09:00 With:SAMEER MONTIEL, LEXUS Carson Address: [facility] [address] [place] [phone] When: Unknown Comments:Will schedule RT ESWLF/u in 3-4 month due to new medication [facility] 11-23-2021 Evaluation note* Encounter Date Diagnosis Assessment Notes Treatment Notes Treatment Clinical Notes Mar, Dyspnea on exertion (ICD-10 - R06.00) Mar, Leg edema (ICD-10 - R60.0) [employer] Other 10-26-2021 Evaluation note* Encounter Date Diagnosis Assessment Notes Treatment Notes Treatment Clinical Notes Feb, Dyspnea on exertion (ICD-10 - R06.00) Feb, Leg edema (ICD-10 - R60.0) [employer] Other 08-02-2021 NoteHNO ID: [id number] Author: Amara Esqueda MD Service: ? Author [...] its relevant components. Amara Esqueda MD [facility] 09[facility] Future Appointments Appointment Date:11/07/2021 09:30:00 AM Scheduled Provider:Dominique ESTRELLA MD Location:[facility] Appointment Type:URO Office Visit [facility] evaluation + Plan note Future Appointments Appointment Date:08/24/2022 10:30:00 AM Scheduled Provider:Dominique ESTRELLA MD Location:[facility] Appointment Type:URO Office Visit [facility] evaluation + Plan note Future Appointments Appointment Date:03/01/2023 09:15:00 AM Scheduled Provider:Dominique ESTRELLA MD Location:[facility] Appointment Type:URO Office Visit [facility] evaluation noteNo [facility] [employer] Other Evaluation note* Diagnosis Dermatophytosis of nail- Primary Dystrophic nail Other specified disease of nail Pain around toenail, right foot Pain around toenail, left foot documented in this encounter [facility] HealthcareEvaluation note* Diagnosis HSV epithelial keratitis- Primary documented in this encounter [facility] Healthcare[facility] note* Diagnosis HSV epithelial keratitis- Primary documented in this encounter [facility] HealthcareHistory general Narrative - Reported* Type Description Date Medical History ADITHYA Medical History hypertension Medical History heart disease Surgical History bypass triple Surgical History 2 knee replacements Surgical History hiatal hernia Surgical History cataract x 2 Hospitalization History as above [employer] Other History general Narrative - Reported* Type [...] OF KIDNEY STONE Hospitalization History as above [employer] Other Hospital course Narrative No data available for this section [facility] progress note No data available for this section [facility] Summary Purpose Family History No [...] spondylosis ( M47.816) Referral Organization [facility] Referring Provider First Name Leo Referring Provider Last Name [place] Referring Provider Specialty Internal Me dicine Referred Organization [facility] Referred Provider Samantha Contreras Referred Address [address] [place], [place],[address] Referred Provider Specialty Pain Medicin e Referral [...] and content) DATE CREATED AUTHOR 07/07/2018 [facility] DATE CREATED AUTHOR AUTHOR'S ORGANIZ ATLINDSEY 12/09/2020 [facility] DATE CREATED AUTHOR AUTHOR'S ORGANIZ ATION 03/10/2021 [facility] DATE CREATED AUTHOR AUTHOR'S ORGANIZ ATION 03/01/2022 [facility] DATE CREATED AUTHOR AUTHOR'S ORGANIZ ATION 09/23/2023 [facility] DATE CREATED AUTHOR AUTHOR'S ORGANIZ ATION 02/01/2024 [facility] DATE CREATED AUTHOR AUTHOR'S ORGANIZ ATION 06/15/2024 [facility] DATE CREATED AUTHOR AUTHOR'S ORGANIZ ATION 06/16/2024 [facility] dical Specialists EPIC REASON FOR VISIT (unrecogniz ed section and content) Reason Comments Toenail Care SS: 11 Reason Comments Eye Problem Conjunctivitis Reason Comments Follow-up Reason Comments Nail care Ralph Almanzar is a 8 7 y.o. male who presents for Toenail Care (SS: 11). Patient Care team informatio n (unrecognized section and content) Arts And Crafts Teacher Relationship Specialty Start Date End Date Leo Garcias MD [address] [place] [address] PCP - General Internal Medicine 10/08/22 [employer] And Crafts Teacher Relationship Specialty Start Date End Date Leo Garcias MD [address] [place] [address] PCP - General Internal Medicine 10/08/22 Arts And Crafts Teacher Relationship Specialty Start Date End Date Leo Garcias MD [address] [place] [address] PCP - General Internal Medicine 10/08/22 Arts And Crafts Teacher Relationship Specialty Start Date End Date Leo Garcias MD [address] [place] [address] PCP - General Internal Medicine 10/08/22 Arts And Crafts Teacher Relationship Specialty Start Date End Date Leo Garcias MD [address] [place] [facility] [address] PCP - General Internal Medicine 10/08/22 Arts And Crafts Teacher Relationship Specialty Start Date End Date Leo Garcias MD [address] [place] [address] PCP - General Internal Medicine 10/08/22 Arts And Crafts Teacher Relationship Specialty Start Date End Date Leo Garcias MD [address] [place] [address] PCP - General Internal Medicine [...] BE BASED ON THE PRIMARY CLINICAL RECORDS. [email or web address] [facility]. provides no warranty or guarantee of the accuracy or completeness of information in this document.
--- NOTE | 2024-07-06 11:32 | XR_ITS ---
[facility] [place] [id number] Patient Name: LENIN LAM MRN: [id number] date: 1945 Sex: M Assigned Patient Location: [facility] Current Patient Location: [facility] Accession/Order Number: [id number] Exam Date: 07/06/2024 12:09 Report Date: 07/06/2024 12:19 At the request of: GEORGE BERUMEN DO Procedure: XR ribs LT min 3V w CXR1V PA CHEST WITH LEFT RIBS: CLINICAL HISTORY: Patient fell approximately one week ago onto left side and has lower rib pain with deep inspiration. COMPARISON: 02/17/2022 The chest film shows median sternotomy wires. There is minimal linear atelectasis at the left base. No additional consolidation, effusion or pneumothorax. The cardiac, hilar and mediastinal silhouettes are within normal limits. No vascular congestion is seen. AP and both oblique views of the left ribs show a mildly displaced posterior lateral left eighth rib fracture. A subtle nondisplaced fracture involving the adjacent seventh rib is not excluded. XR/XR ribs LT min 3V w CXR1V IMPRESSION: ACUTE LEFT RIB FRACTURE(S). MINIMAL LEFT BASILAR ATELECTASIS. Impression dictated by: Prerna Dacosta M.D.07/06/2024 12:19 PM Dictation Location: [place] [address] Electronically authenticated by: [id number] Y Date: 07/06/2024 12:19
== END 2024-07-06 11:15 | disposition home or self-care (01) ==
LOC: RAD 11:16
PROVIDERS: PCP Internal Medicine; Visit Provider Internal Medicine
DX: R07.89 Other chest pain (principal); S22.32XA Fracture of one rib, left side, initial encounter for closed fracture
CPT/HCPCS: 71101

== ENCOUNTER 2024-08-07 09:31 | Outpatient (OUT) | payer MEDICARE, OTHER, SELFPAY ==
--- NOTE | 2024-08-07 09:38 | XR_ITS ---
[place] [id number] Patient Name: LENIN LAM MRN: [id number] date: 1945 Sex: M Assigned Patient Location: RAD Current Patient Location: [facility] Accession/Order Number: [id number] Exam Date: 08/07/2024 10:07 Report Date: 08/07/2024 13:27 At the request of: CARRILLO LICEA NP Procedure: XR abdomen 1V Single view of abdomen COMPARISON: 08/13/2023 HISTORY: Renal stones THORAX: Lung bases unremarkable. FREE AIR: Supine position limits assessment BOWEL: No gaseous intestinal distention. STOOL: No significant stool RENAL STONES: No significant stones present. VASCULAR CALCIFICATIONS: Present SOFT TISSUE: Unremarkable BONES: Redemonstration of multilevel lumbar facet degeneration. POSTSURGICAL CHANGES: Neurostimulator present XR/XR abdomen 1V IMPRESSION: No visible stones Impression dictated by: Balwinder Zambrano M.D.08/07/2024 1:27 PM Dictation Location: [place] Electronically authenticated by: [id number] Y Date: 08/07/2024 13:27
== END 2024-08-07 09:32 | disposition home or self-care (01) ==
LOC: RAD 09:32
PROVIDERS: PCP Internal Medicine; Visit Provider Nurse Practitioner Family
DX: N20.0 Calculus of kidney (principal)
CPT/HCPCS: 74018

== ENCOUNTER 2024-11-07 09:14 | Outpatient (OUT) | payer MEDICARE, OTHER, SELFPAY ==
--- OUTSIDE RECORDS SUMMARY | 2024-11-07 09:19 | XMS_ITS | Referral Summary ---
Author Organization [facility] Address [address] [place] [address] Care Team Providers Care Medical Director Occupational Health Name Role Phone DieterLeo Primary Care Provider [phone] Allergies No known active allergies Medications traMADol (Ultram) 50 mg tablet TAKE 1 TABLET BY MOUTH TWICE A DAY NEEDED FOR 30 DAYS 3 Active atorvastatin (Lipitor) 80 mg tablet in the evening. 1 Active citalopram (CeleXA) 20 mg tablet Take 1 tablet by mouth at bedtime. 0 Active tamsulosin (Flomax) 0.4 mg 24 hr capsule Take 1 capsule by mouth in the morning and at bedtime. 1 Active clopidogrel (Plavix) 75 mg tablet Take 1 tablet by mouth in the morning. 0 Active metoprolol succinate XL (Toprol-XL) 50 mg 24 hr tablet Take 1 tablet by mouth in the morning. 0 Active oxybutynin XL (Ditropan-XL) 15 mg 24 hr tablet Take 15 mg by mouth. 3 Active finasteride (Proscar) 5 mg tablet Take 5 mg by mouth in the morning. 3 Active aspirin 81 mg EC tablet Take 1 tablet by mouth in the morning. Active furosemide (Lasix) 20 mg tabletIndications :Benign hypertensive heart disease without congestive heart failure TAKE 1 TABLET BY MOUTH EVERY DAY IN THE MORNING 90 tablet 3 4 Active oxyCODONE-acetami nophen (Percocet) 7.5-325 mg tablet TAKE 1 TABLET BY MOUTH THREE TIMES A DAY NEEDED FOR PAIN 4 Active isosorbide mononitrate ER (Imdur) 60 mg 24 hr tabletIndications :Chest pain, unspecified type TAKE 1 TABLET (60 MG) BY MOUTH IN THE MORNING 90 tablet 3 4 03/17/20 Active amLODIPine-benaze priL (Lotrel) 10-20 mg capsuleIndication s:Benign hypertensive heart disease without congestive heart failure TAKE 1 CAPSULE BY MOUTH EVERY MORNING 90 capsule 3 4 Active Active Problems Problem Noted Date Diagnosed Date Lumbar spondylosis 01/04/2024 Nicotine dependence, cigarettes, in remission Recurrent major depressive disorder, in full rem ission 01/04/2024 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 01/27/2023 Depression 01/27/2023 01/27/2023 History of kidney stones 01/27/2023 023 Incontinence without sensory awareness 01/27/2023 Kidney stone 01/27/2023 01/27/2023 Nocturia 01/27/2023 01/27/2023 Urge incontinence 01/27/2023 01/27/2023 Urinary urgency 01/27/2023 01/27/2023 Weak urinary stream 01/27/2023 01/27/2023 Difficulty walking 09/28/2022 01/27/2023 Hallux rigidus, right foot 09/28/202201/27 Cerebral infarction 01/23/2014 01/27/2023 Hypertension 01/23/2014 01/27/2023 Abnormal results of cardiovascular function stud ies 07/24/2013 01/27/2023 Overview (01/27/2023): LATERAL ISCHEMIA; LIKELY D.T [place] LCX PROXIMAL TO GRAFT Obstructive sleep apnea syndrome 03/14/2012 01/27/2023 Coronary atherosclerosis 03/11/2012 023 Overview (01/27/2023): CABG (02/2009), OMKAR RCA (10/2010), POBA MARIN-LAD Diaphragmatic hernia 03/11/2012 01/27/2023 Gastroesophageal reflux disease 03/11/2012 01/27/2023 Hyperlipidemia 03/11/2012 01/27/2023 Obesity 03/11/2012 01/27/2023 Social History Tobacco Use Types Packs/Day Years Used Date Smoking Tobacco: Never Assessed [place] Safety & Environment Answer Date Rec orded Fear of Current or Ex-Partner Not on file Emotionally Abused Not on file 07/01/2023 Physically Abused Not on file 07/01/2023 Sexually Abused Not on file 07/01/2023 Physically or Sexually Abused Not on file Sex and Gender Information Value Date Recorded Sex Assigned at Not on file Legal Sex Male 10:34 PM EDT Gender Identity Not on file Sexual Orientation Not on file Last Filed Vital Signs Vital Sign Reading Time Taken Comments Blood Pressure 126/70 01/31/2024 9:19 AM EDT Pulse 65 01/31/2024 9:19 AM EDT Temperature - - Respiratory Rate - - Oxygen Saturation 94% 01/31/2024 9:19 AM EDT Inhaled Oxygen Concentration - - Weight 131 kg (288 lb) 01/31/2024 9:19 AM EDT Height 165.1 cm (5' 5 ) 01/31/2024 9:19 AM EDT Body Mass Index 47.93 01/31/2024 9:19 AM EDT Plan of Treatment Not on file Insurance MEDICARE Care Teams Medical Director Occupational Health Relationship Specialty Start Date End Date Leo Garcias DO [address] [place] [address] PCP - General 01/27/23
--- OUTSIDE RECORDS SUMMARY | 2024-11-07 09:19 | XMS_ITS | Encounter Summary ---
Author Organization [facility] Address [address] [place] [address] Care Team Providers Care Title I Director Name Role Phone Ryan Garcias Primary Care Provider [phone] Source Comments In the event this information is protected by the Federal Confidentiality of Alcohol and Drug AbusePatient Records regulations: The Federal rules restrict any use of the information to criminally investigate or prosecute any alcohol or drug abuse patient.[facility] Encounter Details Date Type Department Care Team (Latest Contact Info) Description 05/12/2004 Prob Sum Review Provider, [facility] Social History Tobacco Use Types Packs/Day Years Used Date Smoking Tobacco: Never Assessed Sex and Gender Information Value Date Recorded Sex Assigned at Not on file Legal Sex Male 9:33 AM EST Gender Identity Not on file Sexual Orientation Not on file documented as of this encounter Plan of Treatment Not on file documented as of this encounter Visit Diagnoses Not on filedocumented in this encounter Care Teams Title I Director Relationship Specialty Start Date End Date Ryan Garcias [address] [place] [address] PCP - General 08/19/00 documented as of this encounter
--- OUTSIDE RECORDS SUMMARY | 2024-11-07 09:19 | XMS_ITS | Encounter Summary ---
Author Organization [facility] Address [address] [place] [address] Care Team Providers Care Carbon Dioxide Operator Name Role Phone Leo Garcias DO Primary Care Provider [phone] Reason for Visit * Reason Comments Med Refill Encounter Details Date Type Department Care Team (Late st Contact Info) Description 07/08/[address] [facility] Cardiology [address] [place] [address] Francesca Leon, FLASHER ADJUSTER [address] [place] [address] Benign hypertensive heart disease without congestive heart failure Social History Tobacco Use Types Packs/Day Years Used Date Smoking Tobacco: Never Assessed Sex and Gender Information Value Date Recorded Sex Assigned at Not on file Legal Sex Male 10:34 PM EDT Gender Identity Not on file Sexual Orientation Not on file documented as of this encounter Plan of Treatment Not on file documented as of this encounter Visit Diagnoses Diagnosis Benign hypertensive heart disease without congestive heart failure Benign hypertensive heart disease without heart failure documented in this encounter Care Teams Carbon Dioxide Operator Relationship Specialty Start Date End Date Leo Garcias DO [address] [place] [address] [place] [address] PCP - General 01/27/23 documented as of this encounter
--- OUTSIDE RECORDS SUMMARY | 2024-11-07 09:19 | XMS_ITS | Clinical Summary ---
Author Organization [facility] Address [address] [place] [address] Phone Care Team Providers Care Medical Equipment Repairer Name Role Phone Unavailable Primary Care Provider Unavailabl e Social History Tobacco Use Types Packs/Day Years Used Date Smoking Tobacco: Never Assessed Sex and Gender Information Value Date Recorded Sex Assigned at Not on file Legal Sex Male 3:44 PM EST Gender Identity Not on file Sexual Orientation Not on file Plan of Treatment Not on file
--- OUTSIDE RECORDS SUMMARY | 2024-11-07 09:19 | XMS_ITS | Clinical Summary ---
Author Organization [facility] Address [address] [place] [address] Care Team Providers Care Warehouse Operations Associate Name Role Phone Leo Garcias Primary Care Provider [phone] Allergies No known active allergies Medications aspirin ([place]az[place]) 81 MG capsule 06/10/19 10 Active amLODIPine-benaze pril (Lotrel) 10-20 MG capsule Act kandace tolterodine LA (Detrol LA) 4 MG 24 hr capsule 1 capsule 1 (one) time each day at the same time. Active tamsulosin (Flomax) 0.4 MG 24 hr capsule 1 capsule 1 (one) time each day at the same time Active citalopram (CeleXA) 20 MG tablet 06/10/19 10 Active clopidogrel (Plavix) 75 MG tablet 06/10/19 10 Active Pediatric Multivitamins-Fl (MultiVitamin + Fluoride) 0.25 MG chewable tablet Multivitamin A ctive metoprolol succinate XL (Toprol-XL) 50 MG 24 hr tablet 06/10/19 10 Active atorvastatin (Lipitor) 80 MG tablet 06/10/19 10 Active EXTRA STRENGTH ACETAMINOPHEN PO Extra Strength Acetaminophen Active isosorbide mononitrate ER (Imdur) 60 MG 24 hr tablet Active triamcinolone (Kenalog) 0.5 % cream 1 application. Activ e furosemide (Lasix) 20 MG tablet Active LATANOPROST OP Latanoprost Act kandace finasteride (Proscar) 5 MG tablet Take 5 mg by mouth Daily Do not crush, chew, or split. Active oxybutynin XL (Ditropan-XL) 15 MG 24 hr tablet Take 15 mg by mouth Daily Do not crush, chew, or split. Active ganciclovir (Zirgan) 0.15 % ophthalmic gel solutionIndicatio ns:HSV epithelial keratitis Apply 1 drop to left eye 5 (five) times a day 3.5 g 1 12/29/19 24 Active Additional Information Patient not taking.Reported on 09/25/2024 moxifloxacin (Vigamox) 0.5 % ophthalmic solutionIndicatio ns:HSV epithelial keratitis Administer 1 drop into the left eye in the morning and 1 drop at noon and 1 drop in the evening and 1 drop before bedtime. 1 drop four times a day to the right eye starting 3 days prior to surgery. 3 mL 1 12/29/19 24 Active Additional Information Patient not taking.Reported on 09/25/2024 prednisoLONE acetate (Pred-Forte) 1 % ophthalmic suspensionIndicat ions:HSV epithelial keratitis 1 drop, left eye (OS), 3xs/day for 1wk, 2xs/day for 1wk, then daily for 1wk, then stop. 5 mL 01/04/20 24 Active Additional Information Patient not taking.Reported on 09/25/2024 HYDROcodone-aceta minophen ([place]) 7.5-325 MG tablet TAKE 1 TABLET BY MOUTH THREE TIMES A DAY NEEDED FOR PAIN 09/22/19 Active gabapentin (Neurontin) 300 MG capsule Take 300 mg by mouth in the morning and 300 mg before bedtime. 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 Hallux rigidus, right foot 09/28/2022 Difficulty walking 09/28/2022 Encounters Date Type Department Care Team Description 09/25/2024 9:45 AM EDT Procedure Visit [facility] [address] [place] [phone] Rian Balderrama DPM Dermatophytosis of nail (Primary Dx); Dystrophic nail; Pain around toenail, right foot; Pain around toenail, left foot 09/25/2024 Bamboo flowsheet [facility] [address] [place] [phone] Rian Balderrama DPM 09/25/2024 Travel from Last 3 Months Immunizations Immunization Administration Dates Next Due Influenza, High Dose Seasona l, Preservative Free 02/09/2024,02/18/2017,02/12/2016 Influenza, Seasonal, Quadriv alent, Adjuvanted 02/24/2022 Influenza, Unspecified 02/01/2023,2021,02/21/2021,02/28,02/16/2019,01/24/2018,02/18/2017 ,02/12/2016 Influenza, injectable, quadr ivalent, preservative free 02/24/2022 Influenza, trivalent, adjuvanted 01/24/2018 Pneumococcal Conjugate PCV 13 02/28/2015 Pneumococcal Polysaccharide PPSV23 01/24/2018, Td (adult) 10/17/2003 Td (adult), 5 Lf tetanus tox oid, preservative free, adsorbed 02/28/2015,02/16/2014,02/08/2013,02/16 Td (adult), unspecified 10/17/2003 Family History Medical History Relation Name Comments Melanoma Neg Hx Relation Name Status Comments Father Mother Social History Tobacco Use Types Packs/Day Years Used Date Smoking Tobacco: Never Smokeless Tobacco: Never Tobacco Cessation:Counseling Given: Not Answered Alcohol Use Standard Drinks/Week Comments Yes 0 (1 standard drink = 0.6 oz pur e alcohol) 1-2 drinks/monthly or less Sex and Gender Information Value Date Recorded Sex Assigned at Not on file Legal Sex Male 7:06 PM EDT Gender Identity Not on file Sexual Orientation Not on file Last Filed Vital Signs Vital Sign Reading Time Taken Comments Blood Pressure - - Pulse - - Temperature - - Respiratory Rate - - Oxygen Saturation - - Inhaled Oxygen Concentration - - Weight 136 kg (300 lb) 09/25/2024 9:29 AM EDT Height 165.1 cm (5' 5 ) 09/25/2024 9:29 AM EDT Body Mass Index 49.92 09/25/2024 9:29 AM EDT Plan of Treatment Upcoming Encounters Date Type Department Care Team (Late st Contact Info) Description 11/30/2024 10:25 AM EDT Office Visit [facility] [address] [place] [address] Khushi Gonzalez APRN-SCIENTIFIC INFORMATICS ANALYST [address] [place] [address] 01/17/2025 9:45 AM EDT Procedure Visit [facility] [address] [place] [address] Rian Balderrama, DPM [address] [place] [address] Health Maintenance Due Date Last Done Comments Pneumococcal Vaccine: 65+ Years Completed , 02/28/2015, 02/13/2009 Influenza Vaccine Completed 02/09/2024, , 02/24/2022, Additional history exists Insurance MEDICARE CIGNA CIGNA Care Teams Warehouse Operations Associate Relationship Specialty Start Date End Date Loe Garcias DO [address] [place] [address] PCP - General Internal Medicine 10/08/22
--- OUTSIDE RECORDS SUMMARY | 2024-11-07 09:19 | XMS_ITS | Clinical Summary ---
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.T [place] LCX PROXIMAL TO GRAFT Obstructive sleep apnea [...] 01/31/2024 9:19 AM EDT Plan of Treatment Health Maintenance Due Date Last Done Comments Medicare Annual Wellness (AWV) 1945 Depression Screening 1958 Zoster Vaccines (1 of 2) 1996 Fall Risk Screening 2011 COVID-19 Vaccine ( season) 2024 03/23/2022, 03/26/2021, 07/30/2020, Additional history exists Influenza Vaccine (Season Ended) 2025 02/01/2023, 02/24/2022, 02/21/2021, Additional history exists Adult Tetanus 02/28/2025 02/28/2015, 02/07, 02/08/2013, Additional history exists Pneumococcal Vaccine: 50+ Years Completed 01/24/2018, 02/28/2015, 02/13/2009 HIB Vaccines Aged Out No longer eligi ble based on patient's age to complete this topic HPV Vaccines Aged Out No longer eligi ble based on patient's age to complete this topic IPV Vaccines Aged Out No longer eligi ble based on patient's age to complete this topic Meningococcal B Vaccine Aged Out No l onger eligible based on patient's age to complete this topic Meningococcal Vaccine Aged Out No burt shalini eligible based on patient's age to complete this topic Rotavirus Vaccines Aged Out No longer eligible based on patient's age to complete this topic Insurance MEDICARE Member Subscriber Plan / Payer (Ef fective 2018-Present) Name:Mason Almanzar Member ID:[id number] Relation to Subscriber:Self Name:Mason Almanzar Subscriber ID:[id number] Payer ID:[id number] Group ID:Not on file Type:Medicare Address: [facility] [place] [id number] Care Teams Endoscopy Technican Relationship Specialty Start Date End Date Leo Garcias DO [address] [place] [address] PCP - General 01/27/23
--- OUTSIDE RECORDS SUMMARY | 2024-11-07 09:19 | XMS_ITS | Encounter Summary ---
Author Organization [facility] Address [address] [place] [address] Care Team Providers Care Sped Teacher Name Role Phone Leo Garcias DO Primary Care Provider [phone] Encounter Details Date Type Department Care Team (Late Contact Info) Description 10/09/2022 Abstract [facility] [address] [place] [phone] Rian Balderrama, MARY ANN [address] [place], [place] [id number] Social History Tobacco Use Types Packs/Day Years Used Date Smoking Tobacco: Never Tobacco Cessation:Counseling Given: Not Answered [...] as of this encounter Plan of Treatment Upcoming Encounters Date Type Department Care Team (Late Contact Info) Description 11/30/2024 10:25 AM EDT Office Visit [facility] [address] [place] [address] Khushi Gonzalez, SKIN SPECIALIST-LABORER PETROLEUM REFINERY [address] [place] [address] 01/17/2025 9:45 AM EDT Procedure Visit [facility] [address] [place] [address] Rian Balderrama, DPGene [address] [place] [address] documented as of this encounter Visit Diagnoses Not on filedocumented in this encounter Care Teams Sped Teacher Relationship Specialty Start Date End Date Leo Garcias DO [address] [place] [phone] PCP - General Internal Medicine 10/08/22 documented as of this encounter
--- OUTSIDE RECORDS SUMMARY | 2024-11-07 09:19 | XMS_ITS | Clinical Summary ---
Author Organization [facility] Address [address] [place], [place] [address] Care Team Providers Care Personnel Quality Assurance Auditor Name Role Phone Ryan Garcias Primary Care Provider [phone] Allergies No known active allergies Medications amLODIPine-benaz epril (LOTREL) 10-20 mg per capsule Take 1 capsule by mouth once daily. 11/11/2020 Active aspirin, enteric coated (ASPIRIN, ENTERIC COATED) 81 mg EC tablet q 24 HR. Acti ve atorvastatin (LIPITOR) 80 mg tablet TAKE 1 TABLET BY MOUTH EVERY DAY IN THE EVENING 09/24/2020 Active citalopram (CELEXA) 20 mg tablet Take 20 mg by mouth daily at bedtime. 10/17/2020 Active clopidogrel (PLAVIX) 75 mg tablet Take 75 mg by mouth once daily. 11/11/2020 Active furosemide (LASIX) 20 mg tablet Take 20 mg by mouth once daily. 11/03/2020 Active isosorbide mononitrate ER (IMDUR) 60 mg 24 hr tablet Take 60 mg by mouth once daily. 10/16/2020 Active latanoprost (XALATAN) 0.005 % ophthalmic solution Use 1 Drop in both eyes daily at bedtime. 10/08/2020 Active metoprolol succinate ER (TOPROL XL) 50 mg 24 hr tablet Take 50 mg by mouth once daily. 11/15/2020 Active tamsulosin (FLOMAX) 0.4 mg Take 0.4 mg by mouth twice daily. 11/22/2020 Active tolterodine ER (DETROL LA) 4 mg 24 hr capsule Take 4 mg by mouth once daily. 10/22/2020 Active traMADol (ULTRAM) 50 mg tablet 12/08/2020 Active MULTIVITAMIN ORAL Take by mouth. Active Active Problems No known active problems Social History Tobacco Use Types Packs/Day Years Used Date Smoking Tobacco: Never Smokeless Tobacco: Never Alcohol Use Standard Drinks/Week Comments Not Currently 0 (1 standard drink = 0.6 oz pur e alcohol) Area Deprivation Index Answer Date Hakeem rded National Score (1-100), lower number is lower ri sk Not on file 12/09/2020 State Score (1-10), lower number is lower risk N ot on file 12/09/2020 Data from: https://www.neighborhoodatlas.medicine.[facility]/. Last address used for calculation Not on file 12/09/2020 Sex and Gender Information Value Date Recorded Sex Assigned at Not on file Legal Sex Male 9:33 AM EST Gender Identity Not on file Sexual Orientation Not on file Plan of Treatment Health Maintenance Due Date Last Done Comments Anxiety Screening 1963 Depression Screening 1963 Hepatitis C Screening 1964 Diabetes Screening 1991 Shingrix Vaccine (1 of 2) 1996 DTaP,Tdap,Td Vaccine (1 - Tdap) 10/18/2003 4 Pneumococcal Vaccine: 50+ (2 of 2 - PCV) 01/24/2019 01/24/2018 RSV Vaccine (1 - 1-dose 75+ series) 2021 Covid-19 Vaccine (3 - season) 2024, 07/08/2020 Advance Directive Discussion 05/10/2024 Influenza Vaccine (Season Ended) 2025 01/24/2018, 02/18/2017, 02/12/2016 Insurance CIGNA SUPPLEMENT MEDICARE Care Teams Personnel Quality Assurance Auditor Relationship Specialty Start Date End Date Ryan Garcias [address] [place] [address] PCP - General 08/19/00
--- OUTSIDE RECORDS SUMMARY | 2024-11-07 09:19 | XMS_ITS | Encounter Summary ---
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
[2024-11-07 09:41] LABS: Hematocrit 41.2 % (42.0-54.0); Hemoglobin 13.4 g/dL (14.0-18.0); Immature Granulocytes Abs Auto 0.07 10^3/uL (0.00-0.03); Immature Granulocytes Pct Auto 0.6 % (0.0-0.5); Lymphocytes Absolute Auto 2.1 10^3/uL (1.2-3.8); Mean Corpuscular HGB Conc 32.5 g/dL (29.9-35.2); Mean Corpuscular Hemoglobin 30.5 pg (25.9-34.0); Mean Corpuscular Volume 93.8 fL (80.0-94.0); Platelet Count 208 10^3/uL (150-450); Red Blood Count 4.39 10^6/uL (4.70-6.10); White Blood Count 11.6 10^3/uL (4.0-11.0)
[2024-11-07 10:31] LABS: Microalbum Creatinine Ratio Ur 15.5 mg/g (0.0-29.9)
[2024-11-07 11:19] LABS: Alanine Aminotransferase 27 U/L (16-63); Albumin Globulin Ratio 0.9; Albumin Level 3.3 g/dL (3.4-5.0); Alkaline Phosphatase 103 U/L (46-116); Anion Gap 13.8; Aspartate Amino Transferase 15 U/L (15-37); Blood Urea Nitrogen 29.0 mg/dL (7.0-18.0); Calcium 9.2 mg/dL (8.5-10.1); Carbon Dioxide 26.7 mmol/L (21.0-32.0); Chloride 107 mmol/L (98-107); Cholesterol 95 mg/dL (<=200); Estimated GFR (African America 55 (>=60 mL/min/1.73m^2); Estimated GFR (Non-African Ame 45 (>=60 mL/min/1.73m^2); Globulin 3.5 g/dL; Glucose 154 mg/dL (74-106); HDL Cholesterol 47 mg/dL (40-60); Potassium 4.5 mmol/L (3.5-5.1); Sodium 143 mmol/L (136-145); Total Protein 6.8 g/dL (6.4-8.2); Triglycerides 68 mg/dL (<=150); VLDL CHOLESTEROL 13.6 mg/dL
== END 2024-11-07 09:15 | disposition home or self-care (01) ==
LOC: LAB 09:16
PROVIDERS: PCP Internal Medicine; Visit Provider Internal Medicine
DX: I25.10 Atherosclerotic heart disease of native coronary artery without angina pectoris (principal); E11.65 Type 2 diabetes mellitus with hyperglycemia; I10 Essential (primary) hypertension; Z12.5 Encounter for screening for malignant neoplasm of prostate; E78.00 Pure hypercholesterolemia, unspecified
CPT/HCPCS: 36415; 80053; 80061; 82043; 82570; 83036; 85025; G0103